=== PATIENT | female | born 1955 | race Caucasian/White ===

== ENCOUNTER → 2020-04-13 10:07 | Outpatient (BNVA) | payer BC, SELFPAY | PROVIDERS: Family Provider Family Medicine; PCP Family Medicine; Visit Provider Internal Medicine Cardiovascular Disease | DX: I50.9 Heart failure, unspecified (principal) | CPT/HCPCS: 80048; 83735; 83880 ==

== ENCOUNTER → 2020-04-21 09:40 | Outpatient (BNVA) | payer BC, SELFPAY | PROVIDERS: Family Provider Family Medicine; PCP Family Medicine; Visit Provider Internal Medicine Cardiovascular Disease | DX: I10 Essential (primary) hypertension (principal) | CPT/HCPCS: 80048; 83735; 83880 ==

== ENCOUNTER 2020-05-05 08:13 | Emergency (ER) | payer MEDICARE, OTHER, SELFPAY ==
--- NOTE | 2020-05-05 08:27 | W.ED.EPISTAX ---
HPI - Epistaxis General: Chief complaint: Epistaxis Stated complaint: NOSEBLEED Time Seen by Provider: 05/05/20 08:26 Source: patient Mode of arrival: ambulatory Limitations: no limitations History of Present Illness: HPI Narrative: Patient presents with nosebleed starting at 3:00 this morning. Patient states that she gets recurrent nosebleeds. Patient reports that her nostril gets real dry and she developed scabs and she will pick them starting it to bleed. Patient appears chronically ill. Patient appears in no pain. Patient has a history of diabetes, atrial fib, congestive heart failure. Patient takes Xarelto and aspirin daily. MD complaint: epistaxis Location: left nostril Review of Systems General: Reports: 10 or more systems reviewed and unremarkable except in HPI and below ENMT: Reports: epistaxis PFSH ED PFSH: Medical History (Updated 05/05/20 @ 10:03 by EDU Leyva) Atrial fibrillation CHF (congestive heart failure) Diabetes HTN (hypertension) Pacemaker Surgical History H/O tricuspid valve annuloplasty S/P cholecystectomy S/P left atrial appendage ligation S/P Maze operation for atrial fibrillation Status post mitral valve annuloplasty Family History Other CAD (coronary artery disease) Diabetes Social History Smoking and tobacco status: never smoked Alcohol intake: never Physical Exam Const: COMMON NORMALS: no acute distress and patient oriented x3 GENERAL APPEARANCE: cooperative HENMT: COMMON NORMALS: normocephalic, TM's normal bilaterally and Normal external nose present HEAD & SCALP: normal to inspection and normocephalic NOSE: Normal external nose present, Abnormal mucous membranes and turbinates present and Epistaxis present on the left TYMPANIC MEMBRANE: TM's normal bilaterally MOUTH: Normal oral and palatal mucosa present THROAT: postnasal drainage (blood tinged) Eye: GENERAL EYE: appearance normal, both eyes and all related structures Neck/C-Spine: COMMON NORMALS: full ROM Lymph: LYMPHATIC: no lymphadenopathy noted Chest: COMMONS NORMALS: normal inspection of the chest Resp: COMMON NORMALS: normal respiratory effort EFFORT & INSPECTION: Yes able to speak in complete sentences Cardio: COMMON NORMALS: regular rate and regular rhythm RATE: regular rate RHYTHM: regular rhythm GI: COMMON NORMALS: non-tender : COMMON NORMALS: Yes no CVA tenderness BLADDER/KIDNEY EXAM: Yes no CVA tenderness Back/Pelvis: COMMON NORMALS: no CVA tenderness and thoracic and lumbar spine normal to inspection Extremity: COMMON NORMALS: normal to inspection Neuro: COMMON NORMALS: patient oriented x3 and moves all extremities Psych: COMMON NORMALS: mental status grossly normal and cooperative Skin: COMMON NORMALS: no rashes or lesions noted GENERAL SKIN EXAM: no rashes or lesions noted Procedures Epistaxis Control Nostril: left Nose Prepped With: lidocaine and oxymetazoline Direct Inspection: anterior source identified (medial kesselbach area) Clots Removed by: blowing nose Cautery Used: none Device Inserted: other (saturated cotton with lidocaine and epinephrine) Patient Tolerated Procedure: well Course ED course: 929, minimal bleeding is noted. Had patient blow nose and then nose was packed with a lidocaine?epinephrine saturated cottonball. Patient tolerated well. wjw 09, removed cottonball noted minimal blood in the nasal passageway. Repacked naris with 1 cottonball saturated with lidocaine and epinephrine. Posterior pharynx was clear of blood and blood clot. wjw Vital Signs: Vital signs: Vital Signs Temperature 97.9 F 05/05/20 08:31 Pulse Rate 129 H 05/05/20 08:31 Respiratory Rate 16 05/05/20 08:31 Blood Pressure 89/69 05/05/20 08:31 Pulse Oximetry 92 05/05/20 08:31 MDM - Epistaxis MDM Narrative: Medical decision making narrative: Patient comes in today for persistent nosebleed to the left nostril starting this morning at 3:00. Patient had no significant bleeding at the time of arrival to the ER. Respirations were even lungs were clear to auscultation. No edema is noted in the extremities. Vital signs noted some low blood pressure at 90/50. Differential diagnosis includes but not limited to anterior/posterior nasal bleed, anemia, sinus infection, adverse effect of medication. Patient was on aspirin and Xarelto. Patient does admit to picking her nose. We packed the nose with lidocaine and epinephrine saturated cotton ball with good results of cessation of nosebleed. We did repeat packing to leave in place for the next 24 hours then patient may remove. Patient then should use Afrin nasal spray 2 sprays each nostril 3 times a day for next 3 days. We will arrange for patient to follow-up with ear nose and throat for further evaluation and treatment with cautery as needed. Case management was consulted for the referral. Lab Data: Labs: Lab Results 05/05/20 05/05/20 05/05/20 Range/Units 08:56 08:56 08:56 WBC 7.8 (4.0-10.0) 10^3/ uL RBC 4.20 (4.1-5.3) 10^6/u L Hgb 10.8 L (11.5-15.3) g/dL Hct 34.7 L (37.0-47.0) % MCV 82.6 (81-99) fL MCH 25.7 L (28.0-34.0) pg MCHC 31.1 (30.0-36.0) g/dL RDW 15.5 H (12.1-15.1) % Plt Count 176 (130-400) 10^3/c mm MPV 12.2 H (7.4-10.4) fL Neut % (Auto) 77.6 % Lymph % (Auto) 9.7 % [place] % (Auto) 8.8 % Eos % (Auto) 2.6 % Baso % (Auto) 0.4 % Neut # (Auto) 6.0 (1.8-7.7) 10^3/u L Lymph # (Auto) 0.8 (0.8-4.8) 10^3/u L [place] # (Auto) 0.7 (0.2-0.9) 10^3/u L Eos # (Auto) 0.2 (0.0-0.8) 10^3/u L Baso # (Auto) 0.0 (0.0-0.1) 10^3/u L Nucleated RBC % (a uto) 0 % Nucleated RBCs # 0.0 /100WBC PT 22.40 H (10.5-13.3) SECO NDS INR 1.89 H (0.8-1.2) APTT 33.8 (23.9-36.7) SECO NDS Sodium 137 (136-145) mmol/L Potassium 3.0 L (3.5-5.1) mmol/L Chloride 90 L (98-107) mmol/L Carbon Dioxide 32 H (22-29) mmol/L Anion Gap 18.0 (5-19) BUN 70 H (8-23) mg/dL Creatinine 1.9 H (0.5-0.9) mg/dL GFR Calculation 26.5 L (90-130) mL/min Glucose 160 H (65-115) mg/dL Calculated Osmolal ity 287 (285-295) mOsm/k g Calcium 10.7 H (8.5-10.5) mg/dL Total Bilirubin 1.1 (0.15-1.2) mg/dL AST 19 (0-32) U/L ALT 14 (0-33) U/L Alkaline Phosphata se 91 (35-105) IU/L Total Protein 8.4 (6.6-8.7) g/dL Albumin 4.2 (3.5-5.2) g/dL Globulin 4.2 (1.3-4.6) g/dL Discharge Plan Discharge Patient Disposition: Home, Self-Care Clinical Impression: Epistaxis Condition: Stable Prescriptions: No Action aspirin [Aspir-81] 81 mg tablet,delayed release (DR/EC) 81 mg PO DAILY RF: 0 escitalopram oxalate 10 mg tablet 20 mg PO DAILY RF: 0 Levemir FlexTouch U-100 Insuln 100 unit/mL (3 mL) insulin pen 106 unit SUBCUT QAM RF: 0 metoprolol tartrate 100 mg tablet 100 mg PO BID RF: 0 Xarelto 20 mg tablet 20 mg PO DAILY RF: 0 simvastatin 10 mg tablet 10 mg PO DAILY Qty: 30 RF: 6 diltiazem HCl 300 mg capsule,extended release 24 hr 300 mg PO DAILY Qty: 30 RF: 5 torsemide 20 mg tablet 60 mg PO BID Qty: 180 RF: 3 potassium chloride 20 mEq tablet extended release 40 meq PO BID Qty: 120 RF: 5 glipizide 10 mg tablet extended release 24hr 20 mg PO DAILY RF: 0 metolazone 5 mg tablet 5 mg PO DAILY RF: 0 trazodone 100 mg Tablet 100 mg PO BEDTIME RF: 0 Refresh Tears See Rx Instructions .ROUTE .COMPLEX RF: 0 Systane (PF) See Rx Instructions .ROUTE .COMPLEX RF: 0 Discharge Orders: Discharge Order (Routine); Ordered 06/04/20 Ordered By: Benito Cristobal Referrals: Heather Núñez MD [Primary Care Provider] - Discharge Diet: Usual diet Discharge Activity: Increase activity as tolerated Patient Instructions: Epistaxis (ED) Activity Restrictions/Additional Instructions: Leave cottonball in nostril until tomorrow morning. If cottonball comes out prior to the morning leave it out. Then use Afrin nasal spray 2 sprays each nostril 3 times a day for the next 3 days. Case management will help you with getting follow-up appointment with ear nose and throat. Hold aspirin tablet for the next 2 to 3 days. Continue other routine medications as directed. Coding Level of Care Code ED Control Room Supervisor for Chg Fwd Exam Comprehensive
[2020-05-05 08:31] VITALS: BP 89/69; PULSE 129; RESP 16; TEMP 36.6; O2SAT 92; BMI 34.7
[2020-05-05] MEDS: oxymetazoline 0.05% Nasal Spray 15 mL 2 SPRAY NOSTRIL-B (08:45)
[2020-05-05 09:11] LABS: Basophils % 0.4 %; Eosinophils # 0.2 10^3/uL (0.0-0.8); Eosinophils % 2.6 %; Hematocrit 34.7 % (37.0-47.0); Hemoglobin 10.8 g/dL (11.5-15.3); Lymphocytes # 0.8 10^3/uL (0.8-4.8); Lymphocytes % 9.7 %; Mean Corpuscular HGB Conc 31.1 g/dL (30.0-36.0); Mean Corpuscular Hemoglobin 25.7 pg (28.0-34.0); Mean Corpuscular Volume 82.6 fL (81-99); Mean Platelet Volume 12.2 fL (7.4-10.4); Monocytes # 0.7 10^3/uL (0.2-0.9); Monocytes % 8.8 %; Neutrophils % 77.6 %; Nucleated Red Blood Cells % 0 %; Platelet Count 176 10^3/cmm (130-400); Red Cell Distribution Width 15.5 % (12.1-15.1); White Blood Count 7.8 10^3/uL (4.0-10.0)
[2020-05-05 09:20] LABS: INR 1.89 (0.8-1.2); Partial Thromboplastin Time 33.8 SECONDS (23.9-36.7)
[2020-05-05 09:31] LABS: Alanine Aminotransferase 14 U/L (0-33); Albumin Level 4.2 g/dL (3.5-5.2); Alkaline Phosphatase 91 IU/L (35-105); Aspartate Amino Transferase 19 U/L (0-32); Blood Urea Nitrogen 70 mg/dL (8-23); Calcium 10.7 mg/dL (8.5-10.5); Carbon Dioxide 32 mmol/L (22-29); Chloride 90 mmol/L (98-107); Globulin 4.2 g/dL (1.3-4.6); Glomerular Filtration Rate 26.5 mL/min (90-130); Glucose 160 mg/dL (65-115); Osmolality Calculated 287 mOsm/kg (285-295); Sodium 137 mmol/L (136-145); Total Bilirubin 1.1 mg/dL (0.15-1.2); Total Protein 8.4 g/dL (6.6-8.7)
[2020-05-05 10:14] VITALS: BP 106/62; PULSE 111; RESP 16; O2SAT 97
--- NOTE | 2020-05-05 10:34 | DCPLANNER ---
call center manager was asked to schedule a follow up appointment for patient with Dr. Leung, ENT. call center manager called the office of Dr. Leung, spoke with Nevaeh, a follow up appointment is scheduled for Saturday, May 09, 2020 at 10:30 with Carmen. call center manager gave patient the appointment information. call center manager will fax patients information to the ENT clinic.
--- NOTE | 2020-05-26 14:39 | DCPLANNER ---
Patient attended appointment scheduled for 05.09.[address] Leung.
== END 2020-05-05 10:15 | disposition home or self-care (01) ==
PROVIDERS: Emergency Provider Nurse Practitioner Family; Family Provider Family Medicine; PCP Family Medicine
DX: R04.0 Epistaxis (principal); Z79.82 Long term (current) use of aspirin; Z79.4 Long term (current) use of insulin; I48.91 Unspecified atrial fibrillation; I11.0 Hypertensive heart disease with heart failure; I50.9 Heart failure, unspecified; E11.9 Type 2 diabetes mellitus without complications; Z95.0 Presence of cardiac pacemaker
CPT/HCPCS: 12345; 30901; 36415; 80053; 85025; 85610; 85730; 86850; 86900; 86902; 99282; 99283; J2001

== ENCOUNTER → 2020-05-06 09:15 | Outpatient (BNVA) | payer MEDICARE, OTHER, SELFPAY | PROVIDERS: Family Provider Family Medicine; PCP Family Medicine; Visit Provider Internal Medicine Cardiovascular Disease | DX: I50.9 Heart failure, unspecified (principal); Z95.0 Presence of cardiac pacemaker | CPT/HCPCS: 83880 ==

== ENCOUNTER 2020-05-21 06:57 | Emergency (ER) | payer MEDICARE, OTHER, SELFPAY ==
[2020-05-21 07:04] VITALS: BP 111/62; PULSE 117; RESP 18; TEMP 36.6; O2SAT 95; BMI 36.0
--- NOTE | 2020-05-21 07:09 | ED_ITS ---
HPI - Epistaxis General: Chief complaint: Epistaxis Stated complaint: NOSE BLEED Time Seen by Provider: 05/21/20 07:00 Source: patient and family Mode of arrival: ambulatory Limitations: no limitations History of Present Illness: HPI Narrative: Patient is a 65-year-old female who presents to ED today with complaints of a nosebleed coming from her left nare that began today. Patient was seen here at our facility on 05/09 for epistaxis. She did follow-up with Dr. Leung who cauterized the nare last week. Patient states she cannot remember if she picked her nose or picked at the scab. Patient does take Xarelto for atrial fibrillation. MD complaint: epistaxis Location: left nostril Onset (ago): hour(s) Duration: constant Context: history of previous and other anticoagulant use Associated symptoms: Reports no associated symptoms; Deny fever(s), sinus pain or vomiting Treatment prior to arrival: stuffed nose with tissue Review of Systems Const: Denies: fever(s), chills, body aches, fatigue or malaise Eyes: Denies: change in vision, blurry vision, photophobia, floaters or seeing flashes ENMT: Reports: epistaxis; Denies: throat pain, uvular edema, enlarged tonsils, odynophagia, mouth pain, swelling of lips/tongue, oral sores, bleeding gums, dental pain, dry mouth, ear or mastoid pain, ear discharge, disequilibrium, nasal congestion or sinus pain GI: Denies: nausea or vomiting Musc: Denies: neck pain Skin/Breast: Denies: rash PFSH ED PFSH: Medical History (Updated 05/21/20 @ 09:04 by BLANCO Demarco) Atrial fibrillation CHF (congestive heart failure) Diabetes HTN (hypertension) Pacemaker Surgical History H/O tricuspid valve annuloplasty S/P cholecystectomy S/P left atrial appendage ligation S/P Maze operation for atrial fibrillation Status post mitral valve annuloplasty Family History Other CAD (coronary artery disease) Diabetes Social History Smoking and tobacco status: never smoked Alcohol intake: never Physical Exam Const: COMMON NORMALS: no acute distress, patient oriented x3, no limitations and alert ORIENTATION/CONSCIOUSNESS: Yes oriented to person, Yes oriented to place and Yes oriented to time HENMT: COMMON NORMALS: normocephalic, atraumatic, hearing grossly normal bilaterally, external ears normal, EAC's normal, TM's normal bilaterally, Normal external nose present, moist oral mucous membranes, oropharynx normal and gingiva normal HEAD & SCALP: normal to inspection, normocephalic and atraumatic FACE & SINUS: normal facial exam and sinuses nontender NOSE: Normal external nose present, No nasal polyps present and Other nasal findings present (pt with bleeding to L Kiesselbach's plexus) EXTERNAL EAR: Yes external ears normal EXTERNAL AUDITORY CANAL: EAC's normal TYMPANIC MEMBRANE: TM's normal bilaterally MOUTH: Normal oral and palatal mucosa present, lip normal and tongue normal THROAT: posterior oropharynx normal, tonsils normal and uvula midline; no uvular edema Neck/C-Spine: COMMON NORMALS: full ROM and no lymphadenopathy Resp: COMMON NORMALS: normal respiratory effort and clear to auscultation bilaterally AUSCULTATION: clear to auscultation bilaterally Cardio: COMMON NORMALS: regular rate (goes anywhere from 90s-110s; known hx of atrial fib; has not taken AM meds) RATE: regular rate (goes anywhere from 90s-110s; known hx of atrial fib; has not taken AM meds) RHYTHM: abnormal rhythm regularly irregular Neuro: ERWIN COMA SCALE: document GCS findings Erwin coma scale eye opening: Spontaneous [place] coma scale verbal response: Orientated Erwin coma scale motor response: Obey commands Erwin coma scale total score: 15 COMMON NORMALS: patient oriented x3 SENSORIUM/ORIENTATION: Yes alert, Yes oriented to person, Yes oriented to place and Yes oriented to time Skin: COMMON NORMALS: no rashes or lesions noted GENERAL SKIN EXAM: no rashes or lesions noted Procedures Epistaxis Control Nostril: left Nose Prepped With: lidocaine and oxymetazoline Direct Inspection: yes Cautery Used: silver nitrate Device Inserted: other (cottonball soaked with lido/epi) Patient Tolerated Procedure: well Course ED course: pt had 2 sprays of Afrin placed to L nare and a cotton ball soaked with lido/epi; re-evaluation 15 mins later reveals bleeding has almost fully resolved; will re-evaluate in another 10 mins small area was cauterized using silver nitrate with good results; bleeding has subsided at this time Vital Signs: Vital signs: Vital Signs Temperature 97.9 F 05/21/20 07:04 Pulse Rate 60 05/21/20 09:37 Respiratory Rate 18 05/21/20 09:37 Blood Pressure 118/70 05/21/20 09:37 Pulse Oximetry 98 05/21/20 09:37 MDM - Epistaxis Lab Data: Labs: Lab Results 05/21/20 05/21/20 Range/Units 07:25 07:25 WBC 8.7 (4.0-10.0) 10^3/ uL RBC 4.26 (4.1-5.3) 10^6/u L Hgb 11.0 L (11.5-15.3) g/dL Hct 34.9 L (37.0-47.0) % MCV 81.9 (81-99) fL MCH 25.8 L (28.0-34.0) pg MCHC 31.5 (30.0-36.0) g/dL RDW 15.5 H (12.1-15.1) % Plt Count 165 (130-400) 10^3/c mm MPV 11.9 H (7.4-10.4) fL Neut % (Auto) 82.4 % Lymph % (Auto) 7.8 % [place] % (Auto) 6.9 % Eos % (Auto) 2.0 % Baso % (Auto) 0.2 % Neut # (Auto) 7.2 (1.8-7.7) 10^3/u L Lymph # (Auto) 0.7 L (0.8-4.8) 10^3/u L [place] # (Auto) 0.6 (0.2-0.9) 10^3/u L Eos # (Auto) 0.2 (0.0-0.8) 10^3/u L Baso # (Auto) 0.0 (0.0-0.1) 10^3/u L Nucleated RBC % (a uto) 0 % Nucleated RBCs # 0.0 /100WBC PT 24.50 H (10.5-13.3) SECO NDS INR 2.12 H (0.8-1.2) APTT 35.1 (23.9-36.7) SECO NDS Discharge Plan Discharge Patient Disposition: Home, Self-Care Clinical Impression: Epistaxis Condition: Stable Prescriptions: No Action aspirin [Aspir-81] 81 mg tablet,delayed release (DR/EC) 81 mg PO DAILY RF: 0 escitalopram oxalate 10 mg tablet 20 mg PO DAILY RF: 0 Levemir FlexTouch U-100 Insuln 100 unit/mL (3 mL) insulin pen 106 unit SUBCUT QAM RF: 0 metoprolol tartrate 100 mg tablet 100 mg PO BID RF: 0 Xarelto 20 mg tablet 20 mg PO DAILY RF: 0 torsemide 20 mg tablet 60 mg PO BID Qty: 180 RF: 3 potassium chloride 20 mEq tablet extended release See Rx Instructions PO .COMPLEX Qty: 150 RF: 2 simvastatin 10 mg tablet 10 mg PO DAILY Qty: 30 RF: 6 diltiazem HCl 300 mg capsule,extended release 24 hr 300 mg PO DAILY Qty: 30 RF: 5 metolazone 5 mg tablet 5 mg PO DAILY Qty: 90 RF: 2 glipizide 10 mg tablet extended release 24hr 20 mg PO DAILY RF: 0 trazodone 100 mg Tablet 100 mg PO BEDTIME RF: 0 Refresh Tears See Rx Instructions .ROUTE .COMPLEX RF: 0 Systane (PF) See Rx Instructions .ROUTE .COMPLEX RF: 0 Discharge Orders: Discharge Order (Routine); Ordered 05/21/20 Ordered By: Gita Dejesus Referrals: Heather Núñez MD [Primary Care Provider] - Activity Restrictions/Additional Instructions: Leave cottonball in there for the next 24 hours. If bleeding begins again you may try the Afrin and nasal clamp for 15-20 minutes. If bleeding continues please return to the emergency department. Case management should contact you on Saturday to get you set up with Dr. Leung. Discharge Date/Time: 05/21/20 09:37 Coding Level of Care Code ED Full Stack Web Developer for Braeden Kuhn Exam Detailed
[2020-05-21 07:16] VITALS: PULSE 110; RESP 18; O2SAT 93
[2020-05-21] MEDS: oxymetazoline 0.05% Nasal Spray 15 mL 2 SPRAY NOSTRIL-L (07:17)
[2020-05-21 07:31] LABS: Basophils % 0.2 %; Eosinophils # 0.2 10^3/uL (0.0-0.8); Hematocrit 34.9 % (37.0-47.0); Lymphocytes # 0.7 10^3/uL (0.8-4.8); Lymphocytes % 7.8 %; Mean Corpuscular HGB Conc 31.5 g/dL (30.0-36.0); Mean Corpuscular Hemoglobin 25.8 pg (28.0-34.0); Mean Corpuscular Volume 81.9 fL (81-99); Mean Platelet Volume 11.9 fL (7.4-10.4); Monocytes # 0.6 10^3/uL (0.2-0.9); Monocytes % 6.9 %; Neutrophils # 7.2 10^3/uL (1.8-7.7); Neutrophils % 82.4 %; Nucleated Red Blood Cells % 0 %; Platelet Count 165 10^3/cmm (130-400); Red Blood Count 4.26 10^6/uL (4.1-5.3); Red Cell Distribution Width 15.5 % (12.1-15.1); White Blood Count 8.7 10^3/uL (4.0-10.0)
[2020-05-21 07:42] LABS: INR 2.12 (0.8-1.2)
[2020-05-21 07:43] LABS: Partial Thromboplastin Time 35.1 SECONDS (23.9-36.7)
[2020-05-21] MEDS: silver nitrate applicator 1 EACH TOPICAL (08:45)
[2020-05-21 09:16] VITALS: BP 186/83; PULSE 46; RESP 18; O2SAT 98
[2020-05-21 09:37] VITALS: BP 118/70; PULSE 60; RESP 18; O2SAT 98
--- NOTE | 2020-05-23 11:11 | DCPLANNER ---
field project manager had message to schedule a follow up appointment for patient with Dr. Leung. field project manager faxed patients records to the office of Dr. Leung, will call for appointment information.
--- NOTE | 2020-05-24 14:25 | DCPLANNER ---
Rowena from Dr. Redding office called and stated that a follow up appointment had been scheduled for patient for Saturday, June 06, 2020 at 9:40. Clinic will call patient with appointment information.
--- NOTE | 2020-06-10 08:51 | DCPLANNER ---
Patient did attend appointment scheduled for 06.06.[address] Leung.
== END 2020-05-21 09:37 | disposition home or self-care (01) ==
PROVIDERS: Family Medicine; Emergency Provider Physician Assistant; PCP Family Medicine
DX: R04.0 Epistaxis (principal); Z79.82 Long term (current) use of aspirin; Z79.4 Long term (current) use of insulin; I48.91 Unspecified atrial fibrillation; I11.0 Hypertensive heart disease with heart failure; I50.9 Heart failure, unspecified; E11.9 Type 2 diabetes mellitus without complications; Z95.0 Presence of cardiac pacemaker
CPT/HCPCS: 12345; 30901; 36415; 85025; 85610; 85730; 99281; 99283; J2001

== ENCOUNTER → 2020-06-07 10:48 | Outpatient (BNVA) | payer MEDICARE, OTHER, SELFPAY | PROVIDERS: PCP Family Medicine; Visit Provider Internal Medicine Cardiovascular Disease | DX: I50.9 Heart failure, unspecified (principal); Z95.0 Presence of cardiac pacemaker; I10 Essential (primary) hypertension; I48.21 Permanent atrial fibrillation | CPT/HCPCS: 80048; 83036; 83735; 83880 ==

== ENCOUNTER → 2020-07-04 10:09 | Outpatient (BNVA) | payer MEDICARE, OTHER, SELFPAY | PROVIDERS: PCP Family Medicine; Visit Provider Internal Medicine Cardiovascular Disease | DX: N18.4 Chronic kidney disease, stage 4 (severe) (principal); I50.9 Heart failure, unspecified | CPT/HCPCS: 80048; 83735; 83880 ==

== ENCOUNTER → 2020-08-17 11:13 | Outpatient (BNVA) | payer MEDICARE, OTHER, SELFPAY | PROVIDERS: PCP Family Medicine; Visit Provider Internal Medicine Cardiovascular Disease | DX: I50.9 Heart failure, unspecified (principal); I11.0 Hypertensive heart disease with heart failure | CPT/HCPCS: 80048; 83735; 83880 ==

== ENCOUNTER 2020-08-25 12:00 | Outpatient (CLI) | payer MEDICARE, OTHER, SELFPAY ==
--- NOTE | 2020-08-25 12:13 | XR_ITS ---
WS: [id number] PA and lateral chest, 08/25/2020 Clinical Data: SOB Comparison: Chest, 07/27/2019. Findings: There is a moderate right pleural effusion. No pneumothorax is present. There is a small op acity at the right cardiophrenic angle which could represent atelectasis and/or minimal pneumonia. Th e heart is slightly enlarged. The patient's had cardiac valve replacement surgery. There is a 2-lead pacemaker in good position. Pulmonary vascularity is not increased. XR/XR chest 2V* [id number] Impression: 1. Moderate right pleural effusion. 2. Cardiac surgery and permanent pacemaker unchanged. 3. Mild cardiomegaly. 4. Possible minimal right middle lobe pneumonia and/or atelectasis recommend re peat chest x-ray one to 2 days.
== END 2020-08-25 12:01 | disposition home or self-care (01) ==
LOC: RAD 12:09
PROVIDERS: PCP Family Medicine; Visit Provider Internal Medicine Cardiovascular Disease
DX: R06.02 Shortness of breath (principal); J90 Pleural effusion, not elsewhere classified; Z95.0 Presence of cardiac pacemaker; I51.7 Cardiomegaly
CPT/HCPCS: 71046; 80048; 83735; 83880

== ENCOUNTER 2020-08-30 14:11 | Outpatient (CLI) | payer MEDICARE, OTHER, SELFPAY ==
--- NOTE | 2020-08-30 14:30 | CT_ITS ---
WS: [id number] CT CHEST WITHOUT INTRAVENOUS CONTRAST HISTORY: TO ASSESS FLUID FOR PLEUROCENTESIS TECHNIQUE: Contiguous 5 mm axial imaging performed on the thorax. Coronal and sagittal reformats are submitted. All CT scans at [facility] use at least one of these dose optimization techniq ues: automated exposure control; mA and/or kV adjustment per patient size (includes targeted exams wh ere dose is matched to clinical indication); or iterative reconstruction. CONTRAST: None DLP: 821.32 mGy.cm COMPARISON: 08/02/2017 Lungs and central airway: Mild haziness over both lungs from mild interstitial edema. No pneumonia or nodules. Pleura: Moderate size layering RIGHT pleural effusion. Heart and pericardium: Markedly enlarged cardiac chambers with a small pericardial effusion. Dual randal d cardiac pacer. Tricuspid and mitral valve replacements. Mediastinum and thomas: Small mediastinal and hilar lymph nodes. Largest lymph nodes in the RIGHT parat afia and precarinal region measure up to 10 mm. Vessels: Mild atherosclerosis aorta. Chest wall and lower neck: Prior LEFT dual lead permanent cardiac pacer. Prior median sternotomy. Upper abdomen: Small amount of ascites adjacent to the liver. Visualized liver is negative. Osseous structures: Prior anterior vertebral compression fracture at T12. CT/CT chest wo con [id number] IMPRESSION: 1. Moderate size layering RIGHT pleural effusion. 2. Mild pulmonary edema. 3. Marked cardiomegaly and a small pericardial effusion. 4. Dual lead LEFT subclavian pacer and mitral/tricuspid valve replacements.
== END 2020-08-30 14:12 | disposition home or self-care (01) ==
LOC: RAD 14:13
PROVIDERS: PCP Family Medicine; Visit Provider Internal Medicine Cardiovascular Disease
DX: J90 Pleural effusion, not elsewhere classified (principal); R06.00 Dyspnea, unspecified; J81.1 Chronic pulmonary edema; I51.7 Cardiomegaly; I31.3 Pericardial effusion (noninflammatory); Z95.0 Presence of cardiac pacemaker; Z95.2 Presence of prosthetic heart valve
CPT/HCPCS: 71250

== ENCOUNTER 2020-09-07 13:01 | Inpatient (IN) | payer MEDICARE, MEDICAID, SELFPAY ==
[2020-09-07] VITALS (8 sets, daily range): BP systolic 83–112; BP diastolic 65–72; PULSE 86–113; RESP 12–30; TEMP 36.4–36.6; O2SAT 94–98; BMI 36.2
--- NOTE | 2020-09-07 13:16 | PC.NURSE ---
EKG done at 1318 and shown to ER doctor
[2020-09-07] MEDS: sodium chloride 0.9% 1,000 ML 999 ML IV (13:21)
[2020-09-07 13:27] LABS: Glucose Point of Care 114 mg/dL (70-110)
--- NOTE | 2020-09-07 13:28 | XR_ITS ---
WS: [id number] XR chest 1V portable [id number] REASON FOR EXAM: dyspnea FINDINGS: Marked cardiomegaly. Pacemaker over the left anterolateral chest with leads to the right atrium and right apex. Previous v alvular replacement, mitral and left atrial appliance. Compared to the previous examination of 08/25/2020, there is increasing interstitial infiltrative kenna nge in the right lower lung field. Right hemidiaphragm is flattened with blunting of the right costop hrenic angle. XR/XR chest 1V portable [id number] IMPRESSION: Compared to the previous examination there continues to be large right pleural effusion. There is increasing interstitial change in the right lateral lower savan[place] ng field. Cannot differentiate between congestive failure and pneumonitis.
--- NOTE | 2020-09-07 13:47 | ED_ITS ---
HPI - General Adult General: Chief complaint: General Medical Stated complaint: DIFF BREATHING, HYPOGLYCEMIA Time Seen by Provider: 09/07/20 13:10 History of Present Illness: HPI narrative: 65-year-old female presents emergency room with complaining of last 2 days of shortness of breath. She was in respiratory distress when EMS arrived with a blood sugar around 47 and she was extremely tachypneic. She was treated in the field and blood sugar on arrival now is 114. She is hypotensive as well. She did take all of her medicines this morning. Chest CT done last week showed mild pulmonary edema with a right pleural effusion. There are no groundglass opacities. Patient has had some loose stools along with the increasing shortness of breath. Onset (ago): week(s) Location: chest Radiation: non-radiation Severity: moderate Relieving factors: none Exacerbating factors: none Associated symptoms: Reports cough, dyspnea and weakness; Deny chest pain, confusion, diaphoresis, decreased appetite, fevers/chills, headache(s), malaise, nausea, rash, palpitations, seizures, short of breath, syncope or vomiting Treatments prior to arrival: none Review of Systems Const: Denies: malaise or diaphoresis ENMT: Denies: throat pain, ear or mastoid pain, nasal discharge or nasal congestion Card: Denies: chest pain, palpitations or syncope Resp: Reports: dyspnea GI: Denies: nausea or vomiting : Denies: flank pain, difficulty voiding, dysuria, urinary frequency or urinary urgency Skin/Breast: Denies: rash Neuro: Denies: headache(s) or confusion [facility] ED PFSH: Medical History Atrial fibrillation CHF (congestive heart failure) Diabetes HTN (hypertension) Pacemaker Surgical History H/O tricuspid valve annuloplasty S/P cholecystectomy S/P left atrial appendage ligation S/P Maze operation for atrial fibrillation Status post mitral valve annuloplasty Family History Other CAD (coronary artery disease) Diabetes Social History Smoking and tobacco status: never smoked Alcohol intake: never Physical Exam Const: COMMON NORMALS: no acute distress GENERAL APPEARANCE: cooperative and comfortable ORIENTATION/CONSCIOUSNESS: Yes awake, Yes oriented to person, Yes oriented to place and Yes oriented to time Neck/C-Spine: COMMON NORMALS: no JVD Lymph: LYMPHATIC: no lymphadenopathy noted and no lymphedema noted Resp: COMMON NORMALS: normal respiratory effort, No retractions, No use of accessory muscles and clear to auscultation bilaterally AUSCULTATION: clear to auscultation bilaterally Cardio: COMMON NORMALS: no JVD, regular rate, regular rhythm and No murmurs present (Cardio) RATE: regular rate RHYTHM: regular rhythm GI: COMMON NORMALS: Soft to palpation and No hepatosplenomegaly present AUSCULTATION: Yes normoactive bowel sounds PALPATION: Yes Soft to palpation, No Tenderness to palpation present (GI), No Guarding due to palpation present (GI) and Yes No hepatosplenomegaly present Extremity: COMMON NORMALS: normal to inspection, capillary refill normal and no calf tenderness; negative for no clubbing, cyanosis or edema and negative for no pedal edema GENERAL: Yes edema (2+ lower extremity edema) Neuro: SENSORIUM/ORIENTATION: Yes oriented to person, Yes oriented to place and Yes oriented to time Skin: COMMON NORMALS: no rashes or lesions noted GENERAL SKIN EXAM: no rashes or lesions noted Course Vital Signs: Vital signs: Vital Signs Temperature 98.0 F 09/12/20 11:16 Pulse Rate 114 H 09/12/20 15:14 Respiratory Rate 26 H 09/12/20 15:14 Blood Pressure 82/50 09/12/20 15:14 Pulse Oximetry 98 09/12/20 15:14 [facility] - General Adult Lab Data: Labs: Lab Results 09/07/20 09/07/20 09/07/20 Range/Units 12:45 12:45 12:45 WBC 16.9 H (4.0-10.0) 10^3/ uL RBC 5.02 (4.1-5.3) 10^6/u L Hgb 12.8 (11.5-15.3) g/dL Hct 40.8 (37.0-47.0) % MCV 81.3 (81-99) fL MCH 25.5 L (28.0-34.0) pg MCHC 31.4 (30.0-36.0) g/dL RDW 16.4 H (12.1-15.1) % Plt Count 172 (130-400) 10^3/c mm MPV 12.3 H (7.4-10.4) fL Neut % (Auto) 74.8 % Lymph % (Auto) 11.7 % [place] % (Auto) 9.2 % Eos % (Auto) 1.2 % Baso % (Auto) 0.5 % Neut # (Auto) 12.63 H (1.8-7.7) 10^3/u L Lymph # (Auto) 2.0 (0.8-4.8) 10^3/u L [place] # (Auto) 1.6 H (0.2-0.9) 10^3/u L Eos # (Auto) 0.2 (0.0-0.8) 10^3/u L Baso # (Auto) 0.1 (0.0-0.1) 10^3/u L Nucleated RBC % (a uto) 0 % Nucleated RBCs # 0.0 /100WBC Fibrinogen 343 (174-498) mg/dL D-Dimer 14.59 H (0-0.59) ug/mIFE U Specimen Type Sample Site ABG pH (7.35-7.45) ABG pCO2 (35-45) mmHg ABG pO2 (80.0-100.0) mmH g ABG HCO3 (22-26) mmol/L ABG Base Excess (-2.0-2.0) mmol/ L Rl Test Hematocrit (37-47) % O2 Delivery Device O2 Liters/Min % FiO2 % Tactical Response Group Officer ID Sodium 132 L (136-145) mmol/L Potassium 5.2 H (3.5-5.1) mmol/L Chloride 97 L (98-107) mmol/L Carbon Dioxide 20 L (22-29) mmol/L Anion Gap 20.2 H (5-19) BUN 73 H (8-23) mg/dL Creatinine 2.8 H (0.5-0.9) mg/dL GFR Calculation 17.0 L (90-130) mL/min Glucose 38 L* (65-115) mg/dL POC Glucose (70-110) mg/dL Calculated Osmolal ity 292 (285-295) mOsm/k g Lactic Acid (0.5-2.2) mmol/L Calcium 9.9 (8.5-10.5) mg/dL Ferritin 88 (15-150) ng/mL Total Bilirubin 0.9 (0.15-1.2) mg/dL AST 15 (0-32) U/L ALT 7 (0-33) U/L Alkaline Phosphata se 88 (35-105) IU/L Lactate Dehydrogen ase 427 H (135-214) U/L Creatine Kinase (26-192) U/L C-Reactive Protein 4.5 (0.0-4.9) mg/L Total Protein 7.8 (6.6-8.7) g/dL Albumin 4.2 (3.5-5.2) g/dL Globulin 3.6 (1.3-4.6) g/dL Procalcitonin 0.21 (0-0.5) ng/mL Urine Color (Yellow) Urine Appearance (CLEAR) Urine pH (5-7) Ur Specific Gravit y (1.005-1.030) Urine Protein (Negative) Urine Glucose (UA) (Normal) Urine Ketones (Negative) Urine Blood (Negative) Urine Nitrate (Negative) Urine Bilirubin (Negative) Urine Urobilinogen (Negative) mg/dL Ur Leukocyte Nia ase (Negative) Urine RBC (0-2) /hpf Urine WBC (0-5) /hpf Ur Squamous Epith Cells (0-5) /hpf Amorphous Sediment Urine Bacteria (NONE) /hpf Influenza Type A A g (Negative) Influenza Type B A g (Negative) SARS-CoV-2 Ag (Rap id) (Negative) 09/07/20 09/07/20 09/07/20 Range/Units 12:45 13:13 13:35 WBC (4.0-10.0) 10^3/ uL RBC (4.1-5.3) 10^6/u L Hgb (11.5-15.3) g/dL Hct (37.0-47.0) % MCV (81-99) fL MCH (28.0-34.0) pg MCHC (30.0-36.0) g/dL RDW (12.1-15.1) % Plt Count (130-400) 10^3/c mm MPV (7.4-10.4) fL Neut % (Auto) % Lymph % (Auto) % [place] % (Auto) % Eos % (Auto) % Baso % (Auto) % Neut # (Auto) (1.8-7.7) 10^3/u L Lymph # (Auto) (0.8-4.8) 10^3/u L [place] # (Auto) (0.2-0.9) 10^3/u L Eos # (Auto) (0.0-0.8) 10^3/u L Baso # (Auto) (0.0-0.1) 10^3/u L Nucleated RBC % (a uto) % Nucleated RBCs # /100WBC Fibrinogen (174-498) mg/dL D-Dimer (0-0.59) ug/mIFE U Specimen Type Sample Site ABG pH (7.35-7.45) ABG pCO2 (35-45) mmHg ABG pO2 (80.0-100.0) mmH g ABG HCO3 (22-26) mmol/L ABG Base Excess (-2.0-2.0) mmol/ L Rl Test Hematocrit (37-47) % O2 Delivery Device O2 Liters/Min % FiO2 % Tactical Response Group Officer ID Sodium (136-145) mmol/L Potassium (3.5-5.1) mmol/L Chloride (98-107) mmol/L Carbon Dioxide (22-29) mmol/L Anion Gap (5-19) BUN (8-23) mg/dL Creatinine (0.5-0.9) mg/dL GFR Calculation (90-130) mL/min Glucose (65-115) mg/dL POC Glucose 114 (70-110) mg/dL Calculated Osmolal ity (285-295) mOsm/k g Lactic Acid (0.5-2.2) mmol/L Calcium (8.5-10.5) mg/dL Ferritin (15-150) ng/mL Total Bilirubin (0.15-1.2) mg/dL AST (0-32) U/L ALT (0-33) U/L Alkaline Phosphata se (35-105) IU/L Lactate Dehydrogen ase (135-214) U/L Creatine Kinase 20 L (26-192) U/L C-Reactive Protein (0.0-4.9) mg/L Total Protein (6.6-8.7) g/dL Albumin (3.5-5.2) g/dL Globulin (1.3-4.6) g/dL Procalcitonin (0-0.5) ng/mL Urine Color (Yellow) Urine Appearance (CLEAR) Urine pH (5-7) Ur Specific Gravit y (1.005-1.030) Urine Protein (Negative) Urine Glucose (UA) (Normal) Urine Ketones (Negative) Urine Blood (Negative) Urine Nitrate (Negative) Urine Bilirubin (Negative) Urine Urobilinogen (Negative) mg/dL Ur Leukocyte Nia ase (Negative) Urine RBC (0-2) /hpf Urine WBC (0-5) /hpf Ur Squamous Epith Cells (0-5) /hpf Amorphous Sediment Urine Bacteria (NONE) /hpf Influenza Type A A g Negative (Negative) Influenza Type B A g Negative (Negative) SARS-CoV-2 Ag (Rap id) (Negative) 09/07/20 09/07/20 09/07/20 Range/Units 13:35 13:45 14:00 WBC (4.0-10.0) 10^3/ uL RBC (4.1-5.3) 10^6/u L Hgb (11.5-15.3) g/dL Hct (37.0-47.0) % MCV (81-99) fL MCH (28.0-34.0) pg MCHC (30.0-36.0) g/dL RDW (12.1-15.1) % Plt Count (130-400) 10^3/c mm MPV (7.4-10.4) fL Neut % (Auto) % Lymph % (Auto) % [place] % (Auto) % Eos % (Auto) % Baso % (Auto) % Neut # (Auto) (1.8-7.7) 10^3/u L Lymph # (Auto) (0.8-4.8) 10^3/u L [place] # (Auto) (0.2-0.9) 10^3/u L Eos # (Auto) (0.0-0.8) 10^3/u L Baso # (Auto) (0.0-0.1) 10^3/u L Nucleated RBC % (a uto) % Nucleated RBCs # /100WBC Fibrinogen (174-498) mg/dL D-Dimer (0-0.59) ug/mIFE U Specimen Type Arterial Sample Site Radial, left ABG pH 7.40 (7.35-7.45) ABG pCO2 33.3 L (35-45) mmHg ABG pO2 173.0 H (80.0-100.0) mmH g ABG HCO3 20.8 L (22-26) mmol/L ABG Base Excess -3.3 L (-2.0-2.0) mmol/ L Rl Test Pos Hematocrit 34.2 L (37-47) % O2 Delivery Device Nc O2 Liters/Min 4.0 % FiO2 36.0 % Tactical Response Group Officer ID Amh Sodium (136-145) mmol/L Potassium (3.5-5.1) mmol/L Chloride (98-107) mmol/L Carbon Dioxide (22-29) mmol/L Anion Gap (5-19) BUN (8-23) mg/dL Creatinine (0.5-0.9) mg/dL GFR Calculation (90-130) mL/min Glucose (65-115) mg/dL POC Glucose (70-110) mg/dL Calculated Osmolal ity (285-295) mOsm/k g Lactic Acid (0.5-2.2) mmol/L Calcium (8.5-10.5) mg/dL Ferritin (15-150) ng/mL Total Bilirubin (0.15-1.2) mg/dL AST (0-32) U/L ALT (0-33) U/L Alkaline Phosphata se (35-105) IU/L Lactate Dehydrogen ase (135-214) U/L Creatine Kinase (26-192) U/L C-Reactive Protein (0.0-4.9) mg/L Total Protein (6.6-8.7) g/dL Albumin (3.5-5.2) g/dL Globulin (1.3-4.6) g/dL Procalcitonin (0-0.5) ng/mL Urine Color Yellow (Yellow) Urine Appearance Clear (CLEAR) Urine pH 5 (5-7) Ur Specific Gravit y 1.010 (1.005-1.030) Urine Protein Neg (Negative) Urine Glucose (UA) Norm (Normal) Urine Ketones Negative (Negative) Urine Blood Neg (Negative) Urine Nitrate Negative (Negative) Urine Bilirubin Neg (Negative) Urine Urobilinogen Neg (Negative) mg/dL Ur Leukocyte Nia ase 1+ H (Negative) Urine RBC None (0-2) /hpf Urine WBC 15-25 H (0-5) /hpf Ur Squamous Epith Cells 0-4 H (0-5) /hpf Amorphous Sediment Not Reportable Urine Bacteria 2+ H (NONE) /hpf Influenza Type A A g (Negative) Influenza Type B A g (Negative) SARS-CoV-2 Ag (Rap id) Negative (Negative) 09/07/20 09/07/20 Range/Units 14:30 15:30 WBC (4.0-10.0) 10^3/ uL RBC (4.1-5.3) 10^6/u L Hgb (11.5-15.3) g/dL Hct (37.0-47.0) % MCV (81-99) fL MCH (28.0-34.0) pg MCHC (30.0-36.0) g/dL RDW (12.1-15.1) % Plt Count (130-400) 10^3/c mm MPV (7.4-10.4) fL Neut % (Auto) % Lymph % (Auto) % [place] % (Auto) % Eos % (Auto) % Baso % (Auto) % Neut # (Auto) (1.8-7.7) 10^3/u L Lymph # (Auto) (0.8-4.8) 10^3/u L [place] # (Auto) (0.2-0.9) 10^3/u L Eos # (Auto) (0.0-0.8) 10^3/u L Baso # (Auto) (0.0-0.1) 10^3/u L Nucleated RBC % (a uto) % Nucleated RBCs # /100WBC Fibrinogen (174-498) mg/dL D-Dimer (0-0.59) ug/mIFE U Specimen Type Sample Site ABG pH (7.35-7.45) ABG pCO2 (35-45) mmHg ABG pO2 (80.0-100.0) mmH g ABG HCO3 (22-26) mmol/L ABG Base Excess (-2.0-2.0) mmol/ L Rl Test Hematocrit (37-47) % O2 Delivery Device O2 Liters/Min % FiO2 % Tactical Response Group Officer ID Sodium (136-145) mmol/L Potassium (3.5-5.1) mmol/L Chloride (98-107) mmol/L Carbon Dioxide (22-29) mmol/L Anion Gap (5-19) BUN (8-23) mg/dL Creatinine (0.5-0.9) mg/dL GFR Calculation (90-130) mL/min Glucose (65-115) mg/dL POC Glucose 69 (70-110) mg/dL Calculated Osmolal ity (285-295) mOsm/k g Lactic Acid 1.3 (0.5-2.2) mmol/L Calcium (8.5-10.5) mg/dL Ferritin (15-150) ng/mL Total Bilirubin (0.15-1.2) mg/dL AST (0-32) U/L ALT (0-33) U/L Alkaline Phosphata se (35-105) IU/L Lactate Dehydrogen ase (135-214) U/L Creatine Kinase (26-192) U/L C-Reactive Protein (0.0-4.9) mg/L Total Protein (6.6-8.7) g/dL Albumin (3.5-5.2) g/dL Globulin (1.3-4.6) g/dL Procalcitonin (0-0.5) ng/mL Urine Color (Yellow) Urine Appearance (CLEAR) Urine pH (5-7) Ur Specific Gravit y (1.005-1.030) Urine Protein (Negative) Urine Glucose (UA) (Normal) Urine Ketones (Negative) Urine Blood (Negative) Urine Nitrate (Negative) Urine Bilirubin (Negative) Urine Urobilinogen (Negative) mg/dL Ur Leukocyte Nia ase (Negative) Urine RBC (0-2) /hpf Urine WBC (0-5) /hpf Ur Squamous Epith Cells (0-5) /hpf Amorphous Sediment Urine Bacteria (NONE) /hpf Influenza Type A A g (Negative) Influenza Type B A g (Negative) SARS-CoV-2 Ag (Rap id) (Negative) Discharge Plan Discharge Patient Disposition: Admitted As Inpatient Admit Provider: Elmer Oropeza Clinical Impression: Pneumonia, CHF (congestive heart failure), SANDY (acute kidney injury), Atrial fibrillation, UTI (urinary tract infection) Condition: Stable Interventions: ED Discharge Assessment Last Done: 09/07/20 17:27 ED Charges Last Done: 09/07/20 17:27 Discharge Date/Time: 09/07/20 17:27 Coding Level of Care Code ED 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
[2020-09-07 14:13] LABS: ABG PCO2 33.3 mmHg (35-45); Arterial Blood Gas Hematocrit 34.2 % (37-47); Base Excess ABG -3.3 mmol/L (-2.0-2.0); Blood Gas Allen Test Pos; Blood Gas Operator Identificat AMH; Blood Gas Sample Site Radial, left; Blood Gas Sample Type Arterial; HCO3 ABG 20.8 mmol/L (22-26); Oxygen Device NC
[2020-09-07 14:22] LABS: Basophils # 0.1 10^3/uL (0.0-0.1); Basophils % 0.5 %; Eosinophils # 0.2 10^3/uL (0.0-0.8); Eosinophils % 1.2 %; Hematocrit 40.8 % (37.0-47.0); Hemoglobin 12.8 g/dL (11.5-15.3); Lymphocytes % 11.7 %; Mean Corpuscular HGB Conc 31.4 g/dL (30.0-36.0); Mean Corpuscular Hemoglobin 25.5 pg (28.0-34.0); Mean Corpuscular Volume 81.3 fL (81-99); Mean Platelet Volume 12.3 fL (7.4-10.4); Monocytes # 1.6 10^3/uL (0.2-0.9); Monocytes % 9.2 %; Neutrophils # 12.63 10^3/uL (1.8-7.7); Neutrophils % 74.8 %; Nucleated Red Blood Cells % 0 %; Platelet Count 172 10^3/cmm (130-400); Red Blood Count 5.02 10^6/uL (4.1-5.3); Red Cell Distribution Width 16.4 % (12.1-15.1); White Blood Count 16.9 10^3/uL (4.0-10.0)
[2020-09-07 14:27] LABS: Influenza A by IFA Negative (Negative); Influenza B by IFA Negative (Negative); SARS Covid-2 Antigen Negative (Negative)
[2020-09-07 14:32] LABS: Procalcitonin 0.21 ng/mL (0-0.5)
[2020-09-07 14:52] LABS: Alanine Aminotransferase 7 U/L (0-33); Albumin Level 4.2 g/dL (3.5-5.2); Alkaline Phosphatase 88 IU/L (35-105); Anion Gap 20.2 (5-19); Aspartate Amino Transferase 15 U/L (0-32); Blood Urea Nitrogen 73 mg/dL (8-23); C Reactive Protein 4.5 mg/L (0.0-4.9); Calcium 9.9 mg/dL (8.5-10.5); Carbon Dioxide 20 mmol/L (22-29); Chloride 97 mmol/L (98-107); Ferritin 88 ng/mL (15-150); Globulin 3.6 g/dL (1.3-4.6); Lactate Dehydrogenase 427 U/L (135-214); Osmolality Calculated 292 mOsm/kg (285-295); Potassium 5.2 mmol/L (3.5-5.1); Sodium 132 mmol/L (136-145); Total Bilirubin 0.9 mg/dL (0.15-1.2); Total Protein 7.8 g/dL (6.6-8.7)
[2020-09-07 15:01] LABS: Add Urine Microscopic? YES; Bilirubin Urine Neg (Negative); Blood Urine Neg (Negative); Glucose Urine UA Norm (Normal); Ketones Urine Negative (Negative); Leukocyte Esterase Urine 1+ (Negative); Nitrate Urine Negative (Negative); Protein Urine Neg (Negative); Urine Appearance Clear (CLEAR); Urine Color Yellow (Yellow); Urobilinogen Urine Neg (Negative); pH Urine 5 (5-7)
[2020-09-07 15:02] LABS: Lactic Sepsis W/Reflex 1.3 mmol/L (0.5-2.2)
[2020-09-07 15:06] LABS: Add Urine Culture? Yes; Bacteria Urine 2+ /hpf; Squamous Epithelial Cell Urine 0-4 /hpf (0-5); WBC Urine 15-25 /hpf (0-5)
[2020-09-07 15:10] LABS: Glucose 38 mg/dL (65-115)
[2020-09-07] MEDS: levofloxacin-dextrose 5 % 750 MG/150 ML PREMIX 100 MG IV (15:30)
--- NOTE | 2020-09-07 15:32 | ECG_ITS ---
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 Measurements Intervals [place] Rate: 93 P: NC: -1 QRS: 134 QRSD: 96 T: 33 QT: 365 QTc: 454 Interpretive Statements ATRIAL FIBRILLATION WITH DEMAND V PACED BEATS INCOMPLETE RIGHT BUNDLE BRANCH BLOCK [90+ ms QRS DURATION, TERMINAL R IN V1/V2, 40+ ms S IN I/aVL/V4/V5/V6] POSSIBLE RIGHT VENTRICULAR HYPERTROPHY [SOME/ALL OF: PROMINENT R IN V1, LATE TRANSITION, RAD, ERICKA, SSS] ANTEROLATERAL MYOCARDIAL INFARCTION [40+ ms Q WAVE IN I/aVL/V3-V6], OF INDETERMINATE AGE Compared to ECG 07/30/2019 14:49:47 Ventricular premature complex(es) now present Aberrant conduction of supraventricular beat(s) now present Atrial abnormality now present Myocardial infarct finding still present Electronically Signed On 09-07-2020 21:40:20 CDT by Kehined Jones M.D. [id number] f
[2020-09-07 15:33] LABS: D Dimer 14.59 ug/mIFEU (0-0.59); Fibrinogen 343 mg/dL (174-498)
--- NOTE | 2020-09-07 15:33 | PC.NURSE ---
Blood glucose is 69
[2020-09-07 15:34] LABS: Glucose Point of Care 69 mg/dL (70-110)
[2020-09-07] MEDS: sodium chloride 0.9% 500 ML 999 ML IV (16:20)
[2020-09-07] MEDS: dextrose 50% syringe 50 mL 25 ML IVP (16:20)
--- NOTE | 2020-09-07 16:57 | P.HP_ITS ---
Providers/Chief Complaint Primary Care Provider: Heather Núñez MD Chief Complaint: DIFF BREATHING, HYPOGLYCEMIA History of Present Illness Lizzie Pro is a 65 year old female with CHF, AFib s/p MAZE procedure, on chronic anticoagulation with Xarelto, MVR, status post PPM, diabetes reports that for the past several weeks she has been gaining about 6 to 7 pounds, with peripheral edema, and progressive shortness of breath, tachypnea. 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 Did not adjust her diuretics, continue taking them. This morning she has been particularly more short of breath, also having some cough, and so decided to come in for evaluation to ER. Also noted having loose stools. In ER she is hypoglycemic, blood glucose initially 38, subsequently up to 69 with some snacks, found to have interstitial change and right lower lung field, large right pleural effusion, with leukocytosis of 16.9. She is afebrile. On 2 L nasal cannula saturating in the high 90s. She denies any chest pain or pressure. D-dimer is elevated at 14.59. Blood pressure is soft 89/66, but has been maintaining. She states that she has taken all her medications today including Xarelto, including her A. fib medications for which she takes Cardizem and metoprolol. Also has been taking diuretics including metolazone, spironolactone, torsemide. She is noted to have acute kidney injury with creatinine of 2.8 superimposed on chronic kidney disease. Mild hyperkalemia 5.2. Noted to have likely urinary tract infection with 15-25 WBC in urine. Rapid influenza, rapid COVID-19 tests were negative. PCR test has been requested. She received a fluid challenge with 2.5 L saline, was started on levofloxacin for pneumonia. Review of Systems Const: Reports: fatigue; Denies: fever(s), chills, body aches or malaise Eyes: Denies: change in vision or eye redness ENMT: Denies: throat pain, oral sores or ear or mastoid pain Card: Reports: edema, dyspnea on exertion and orthopnea; Denies: chest pain or pre-syncope Resp: Reports: dyspnea and non-productive cough; Denies: productive cough, change in phlegm color or hemoptysis GI: Reports: diarrhea; Denies: abdominal pain, nausea, vomiting, constipation, hematochezia or melena : Denies: flank pain, urinary frequency or hematuria Musc: Denies: back pain, joint swelling or joint redness Skin/Breast: Denies: rash, sores or new lesions Neuro: Denies: headache(s), numbness in extremities, weakness in extremities, dizziness, confusion or seizure-like activity Endo: Denies: polyuria or polydipsia Louie/Lymph: Denies: easy bleeding or purpura All/Imm: Denies: urticaria, throat swelling or tongue swelling Medications/Allergies Home Medications Medication Instructions Recorded Confirmed Last Taken Type escitalopram oxalate 10 mg tablet 20 mg PO DAILY 01/20/20 09/07/20 09/07/20 History insulin detemir U-100 100 unit/mL 106 unit SUBCUT QAM 01/20/20 09/07/20 09/07/20 History (3 mL) subcutaneous pen metoprolol tartrate 100 mg tablet 100 mg PO BID 01/20/20 09/07/20 09/07/20 History simvastatin 10 mg tablet 10 mg PO DAILY #30 tab 03/25/20 09/07/20 09/06/20 Rx Refresh Tears See Rx Instructions .ROUTE .COMPLEX 05/05/20 09/07/20 Unknown History Systane (PF) See Rx Instructions .ROUTE .COMPLEX 05/05/20 09/07/20 Unknown History glipizide 20 mg PO DAILY 05/05/20 09/07/20 09/07/20 History trazodone 100 mg PO BEDTIME 05/05/20 09/07/20 09/06/20 History rivaroxaban 20 mg tablet 20 mg PO DAILY #90 tab 07/18/20 09/07/20 09/07/20 Rx potassium chloride 10 mEq 60 meq PO TID cap 08/25/20 09/07/20 09/07/20 History capsule,extended release torsemide 100 mg tablet 100 mg PO DAILY tab 08/25/20 09/07/20 09/07/20 History torsemide 20 mg tablet 20 mg PO QPM tab 08/25/20 09/07/20 09/06/20 History diltiazem HCl 240 mg 240 mg PO DAILY #30 cap 08/28/20 09/07/20 09/07/20 Rx capsule,extended release 24 hr metolazone 5 mg tablet 5 mg PO DAILY tab 08/28/20 09/07/20 09/07/20 History spironolactone 25 mg tablet 25 mg PO DAILY #30 tab 08/28/20 09/07/20 09/07/20 Rx Allergies Allergy/AdvReac Type Severity Reaction Status Date / Time Penicillins Allergy Unknown Verified 05/05/20 08:39 PFSH Acute PFSH: Medical History Atrial fibrillation CHF (congestive heart failure) Diabetes HTN (hypertension) Pacemaker Surgical History H/O tricuspid valve annuloplasty S/P cholecystectomy S/P left atrial appendage ligation S/P Maze operation for atrial fibrillation Status post mitral valve annuloplasty Family History Other CAD (coronary artery disease) Diabetes Social History Smoking and tobacco status: never smoked Alcohol intake: never Vitals/I&O/Wt Last Vital Signs Temp 97.5 F L 09/07/20 13:08 Pulse 95 09/07/20 16:28 Resp 23 H 09/07/20 16:28 BP 89/66 09/07/20 15:30 Pulse Ox 97 09/07/20 16:28 Weight last 48 hrs Weight 95.708 kg Physical Exam Const: COMMON NORMALS: no acute distress and patient oriented x3 HENMT: COMMON NORMALS: oropharynx normal Neck/C-Spine: COMMON NORMALS: no JVD Resp: COMMON NORMALS: normal respiratory effort AUSCULTATION: rales (Few rales noted in right lung, diminished air entry at base) Cardio: COMMON NORMALS: no JVD, regular rhythm, S1 normal heart sound present, S2 normal heart sound present and No murmurs present (Cardio) RHYTHM: regular rhythm HEART SOUNDS: S1 normal heart sound present and S2 normal heart sound present GI: COMMON NORMALS: Normal to inspection, nondistended, normoactive bowel carmencita nds present, Soft to palpation and non-tender PALPATION: Yes Soft to palpation Extremity: COMMON NORMALS: no joint enlargement GENERAL: Yes edema (4+) Neuro: COMMON NORMALS: patient oriented x3 and moves all extremities Skin: COMMON NORMALS: no rashes or lesions noted GENERAL SKIN EXAM: no rashes or lesions noted Data : 09/07/20 12:45 09/07/20 12:45 Micro: Microbiology 09/07/20 15:05 Blood Culture - Preliminary Blood SPECIMEN COLLECTED 09/07/20 15:00 Blood Culture - Preliminary Blood SPECIMEN COLLECTED A&P Assessment and plan (1) Hypoxia: With pneumonia, but also has history of chronic CHF. Does have also right side large pleural effusion. This is likely multifactorial. At this time started on Levaquin for pneumonia COVID-19 rapid is negative, PCR pending. Maintain isolation. Rapid flu. Cough is nonproductive, if starts having some phlegm, collect sputum culture. D-dimer is also very elevated. Is on Xarelto, so discussed with her risk of PE should be a less likely, however, is also hypotensive, and so is going to be assessed by VQ scan. If PE is ruled out, and is able to come off anti- coagulation, consider thoracentesis. For now transition Xarelto to renally dosed Lovenox until renal function more stable. Status: Acute (2) Pneumonia: RLL. Denies symptoms of aspiration. As above. Status: Acute (3) CHF (congestive heart failure): EF 45%. Has been in exacerbation w LE edema, dyspnea. She is currently hypotensive, with acute kidney injury. Continue taking her diuretics despite poor appetite, and also some loose stools. Hypotension. Received fluid challenge in ER. At this time hold off additional infusion of any fluid. Monitor blood pressure. Would use small doses of albumin if needed otherwise avoid IVF due to CHF. Status: Acute (4) SANDY (acute kidney injury): At this time hold any medications that can affect blood pressure. Hold diuretics. She is denies any NSAID use. Check CK. Status: Acute (5) Hypotension: Blood pressure soft, but maintaining mean arterial pressure of 74. Hold off the antihypertensives, the headaches. Hold off additional IV fluids. Small boluses of albumin if needed, but has been maintaining blood pressure per discussion with ER physician and okay to go to the floor. Monitor. Maintain goal mean arterial pressure 65 mmHg or above. Status: Acute (6) UTI (urinary tract infection): Levaquin as above. Follow urine culture. Status: Acute (7) Elevated d-dimer: Continue anticoagulation. As with VQ scan. Follow COVID-19 PCR. Status: Acute (8) Hyperkalemia: Hold potassium supplement. Hold spironolactone. Monitor renal function. Status: Acute (9) Hypoglycemia: Improving. Hold detemir. Continue to monitor. Status: Acute Additional A&P Information History of mitral valve annulus Atrial fibrillation: History of maze procedure. Status post PPM. Normally on Cardizem and metoprolol. Hold currently due to hypotension. Monitor on telemetry. Diabetes: Hold detemir for now. Monitor glucose. Consistent carbohydrate diet. Status post pacemaker History of HTN: Currently hypotensive Other chronic medical problems. Attestations Medical Necessity Statement*: Admission of over 2 midnights is continued for assessment of management of hypoxia, pneumonia, pleural effusion in the setting of CHF, hypotension, acute kidney injury, UTI, elevated d-dimer, with associated multiple medical comorbidities. Coding Level of Care Code Acute Aircraft Mechanic Structures for [facility] Fwd Exam Comprehensive Diagnoses Hypoxia R09.02 Pneumonia J18.9 CHF (congestive heart failure) I50.9 SANDY (acute kidney injury) N17.9 Hypotension I95.9 UTI (urinary tract infection) N39.0 Elevated d-dimer R79.89 Hyperkalemia E87.5 Hypoglycemia E16.2
--- NOTE | 2020-09-07 17:42 | ECG_ITS ---
[facility] Test Date: 2020-09-07 Pat Name: Lizzie Pro Department: Room: 279 Gender: Female Juvenile Officer: : 1955 Requested By: Jr Magaña Order Number: [id number] Kevyn MD: Kehinde Jones M.D. Measurements Intervals [place] Rate: 94 P: [place]: -1 QRS: 127 QRSD: 102 T: -3 QT: 397 QTc: 498 Interpretive Statements ATRIAL FIBRILLATION INCOMPLETE RIGHT BUNDLE BRANCH BLOCK [90+ ms QRS DURATION, TERMINAL R IN V1/V2, 40+ ms S IN I/aVL/V4/V5/V6] ANTEROSEPTAL MYOCARDIAL INFARCTION , OF INDETERMINATE AGE [40+ ms Q WAVE IN V1-V4] Compared to ECG 09/07/2020 13:14:55 Ventricular premature complex(es) no longer present Aberrant conduction of supraventricular beat(s) no longer present Atrial abnormality no longer present Myocardial infarct finding still present Electronically Signed On 09-08-2020 21:41:50 CDT by eKhinde Jones M.D. [id number]
[2020-09-07 17:54] LABS: Glucose Point of Care 120 mg/dL (70-110)
[2020-09-07 17:56] LABS: Creatine Phosphokinase 20 U/L (26-192)
[2020-09-07] MEDS: enoxaparin 100 mg/mL Syringe 95 MG SUBCUT (18:14)
[2020-09-07 21:41] LABS: Glucose Point of Care 93 mg/dL (70-110)
[2020-09-08 03:38] LABS: Glucose Point of Care 54 mg/dL (70-110)
[2020-09-08 04:00] VITALS: BP 105/64; PULSE 117; RESP 18; TEMP 36.3; O2SAT 97
[2020-09-08 06:24] LABS: Blood Urea Nitrogen 68 mg/dL (8-23); Calcium 9.1 mg/dL (8.5-10.5); Carbon Dioxide 24 mmol/L (22-29); Chloride 98 mmol/L (98-107); Glomerular Filtration Rate 17.7 mL/min (90-130); Glucose 107 mg/dL (65-115); Magnesium 2.3 mg/dL (1.7-2.3); Osmolality Calculated 296 mOsm/kg (285-295); Sodium 133 mmol/L (136-145)
[2020-09-08 06:33] LABS: Glucose Point of Care 100 mg/dL (70-110)
[2020-09-08 07:45] VITALS: BP 111/69; PULSE 92; RESP 17; TEMP 36.5; O2SAT 100
[2020-09-08 07:50] LABS: Basophils % 0.3 %; Eosinophils # 0.1 10^3/uL (0.0-0.8); Eosinophils % 1.2 %; Hematocrit 34.6 % (37.0-47.0); Hemoglobin 10.5 g/dL (11.5-15.3); Lymphocytes # 0.7 10^3/uL (0.8-4.8); Lymphocytes % 7.5 %; Mean Corpuscular HGB Conc 30.3 g/dL (30.0-36.0); Mean Corpuscular Hemoglobin 25.1 pg (28.0-34.0); Mean Corpuscular Volume 82.8 fL (81-99); Monocytes # 0.8 10^3/uL (0.2-0.9); Monocytes % 9.2 %; Neutrophils # 6.97 10^3/uL (1.8-7.7); Neutrophils % 80.9 %; Nucleated Red Blood Cells % 0 %; Platelet Count 89 10^3/cmm (130-400); Red Blood Count 4.18 10^6/uL (4.1-5.3); Red Cell Distribution Width 15.9 % (12.1-15.1); White Blood Count 8.6 10^3/uL (4.0-10.0)
[2020-09-08] MEDS: atorvastatin 40 mg Tablet 20 MG PO (09:24)
--- NOTE | 2020-09-08 09:24 | PC.NURSE ---
patient awake alert and oriented, Respiratory therapy in room with patient, placed on RA, oxygen saturation 97%, will continue to monitor, assisted to bedside commode, 200mL, assisted back to bed, discussed plan of care, denies further questions or concerns, reports a non productive cough, cup for sputum culture provided to patient.
[2020-09-08 09:27] VITALS: PULSE 77; O2SAT 98
[2020-09-08 11:08] LABS: Glucose Point of Care 179 mg/dL (70-110)
[2020-09-08 12:00] VITALS: BP 101/68; PULSE 107; RESP 18; TEMP 36.4; O2SAT 92
[2020-09-08 16:00] VITALS: BP 90/63; PULSE 129; RESP 17; TEMP 36.7; O2SAT 93
[2020-09-08 18:02] LABS: Glucose Point of Care 233 mg/dL (70-110)
[2020-09-08] MEDS: enoxaparin 100 mg/mL Syringe 95 MG SUBCUT (18:28)
--- NOTE | 2020-09-08 19:55 | P.CONIM_ITS ---
Providers/Reason For Consult Consulting Physican/Specialty*: Dr. Pavon, cardiology Reason for Consult*: Congestive heart failure and atrial fibrillation Attending Physician: Elmer Oropeza Primary Care Provider: Heather Núñez MD History of Present Illness History of Present Illness Lizzie Pro is a 65 year old female with PMHx of long standing persistent atrial fibrillation s/p MAZE procedure and ANGELO ligation, poorly controlled DM, HTN, diastolic CHF, severe MR s/p MVR and tricuspid valve repair. She underwent mitral valve repair using 26 mm Physio ring and tricuspid valve repair using 26 mm MC3 tricuspid ring on December. She also underwent full left and right-sided Maze and left atrial appendage ligation using 40 mm AtriaCure clip. Post surgery, she underwent dual-chamber permanent pacemaker placement on December. Left ventricular ejection fraction 44%. Follow-up limited echo with ejection fraction 45%. Resolution of small circumferential pericardial effusion. She is well-known to me and I saw her last on 25 August. At that time she was on metolazone 5 mg every day and torsemide 100 mg in the morning and 20 mg in the afternoon. Her dry weight is about 195 pounds. Her weight last office visit was 201 pounds and since then has increased to about 208 pounds on admission. I had added spironolactone to her regimen but she continued to have worsening shortness of breath leg swelling and dyspnea with minimal exertion. Denies any fever or chills or any contact with cocoa with positive patients. Review of Systems Const: Reports: change in weight and fatigue; Denies: fever(s), chills, change in appetite or malaise Eyes: Reports: change in vision; Denies: eye discharge ENMT: Denies: throat pain, swelling of lips/tongue, oral sores, bleeding gums, nasal congestion, epistaxis or post nasal drip Card: Reports: palpitations, edema, dyspnea on exertion and orthopnea; Denies: chest pain, irregular heart rhythm, lightheadedness, syncope or leg pain with exertion Resp: Reports: dyspnea; Denies: productive cough, wheezing or hemoptysis GI: Denies: abdominal pain, nausea, vomiting, hematemesis, heartburn, diarrhea, constipation, change in bowel habits, hematochezia or melena : Denies: difficulty voiding, dysuria, oliguria or hematuria Musc: Denies: back pain, extremity swelling, joint pain or muscle weakness Skin/Breast: Denies: rash, erythema, new lesions or change in hair Neuro: Denies: numbness in extremities, weakness in extremities, lack of coordination, difficulty walking, dizziness, vertigo or confusion Psych: Denies: anxiety, depression or irritability Endo: Denies: tired all the time, cold intolerance or heat intolerance Louie/Lymph: Denies: easy bruising, easy bleeding, petechiae or purpura All/Imm: Denies: throat swelling, tongue swelling or acute wheezing Meds/Allergies Home Medications and Allergies Home Medications Medication Instructions Recorded Confirmed Last Taken Type escitalopram oxalate 10 mg tablet 20 mg PO DAILY 01/20/20 09/07/20 09/07/20 History insulin detemir U-100 100 unit/mL 106 unit SUBCUT QAM 01/20/20 09/07/20 09/07/20 History (3 mL) subcutaneous pen metoprolol tartrate 100 mg tablet 100 mg PO BID 01/20/20 09/07/20 09/07/20 History simvastatin 10 mg tablet 10 mg PO DAILY #30 tab 03/25/20 09/07/20 09/06/20 Rx Refresh Tears See Rx Instructions .ROUTE .COMPLEX 05/05/20 09/07/20 Unknown History Systane (PF) See Rx Instructions .ROUTE .COMPLEX 05/05/20 09/07/20 Unknown History glipizide 20 mg PO DAILY 05/05/20 09/07/20 09/07/20 History trazodone 100 mg PO BEDTIME 05/05/20 09/07/20 09/06/20 History rivaroxaban 20 mg tablet 20 mg PO DAILY #90 tab 07/18/20 09/07/20 09/07/20 Rx potassium chloride 10 mEq 60 meq PO TID cap 08/25/20 09/07/20 09/07/20 History capsule,extended release torsemide 100 mg tablet 100 mg PO DAILY tab 08/25/20 09/07/20 09/07/20 History torsemide 20 mg tablet 20 mg PO QPM tab 08/25/20 09/07/20 09/06/20 History diltiazem HCl 240 mg 240 mg PO DAILY #30 cap 08/28/20 09/07/20 09/07/20 Rx capsule,extended release 24 hr metolazone 5 mg tablet 5 mg PO DAILY tab 08/28/20 09/07/20 09/07/20 History spironolactone 25 mg tablet 25 mg PO DAILY #30 tab 08/28/20 09/07/20 09/07/20 Rx Allergies Allergy/AdvReac Type Severity Reaction Status Date / Time Penicillins Allergy Unknown Verified 05/05/20 08:39 Current Medications Current Medications Generic Name Dose Route Start Last Admin Trade Name Du PRN Reason Stop Dose Admin Atorvastatin Calcium 20 mg 09/08/20 09:00 09/08/20 09:24 Lipitor PO 20 mg DAILY JM Administration Enoxaparin Sodium 95 mg 09/07/20 19:00 09/08/20 18:28 Lovenox SUBCUT 95 mg Q24H JM Administration PFSH Acute PFSH: Medical History Atrial fibrillation CHF (congestive heart failure) Diabetes HTN (hypertension) Pacemaker Surgical History H/O tricuspid valve annuloplasty S/P cholecystectomy S/P left atrial appendage ligation S/P Maze operation for atrial fibrillation Status post mitral valve annuloplasty Family History Other CAD (coronary artery disease) Diabetes Social History Smoking and tobacco status: never smoked Alcohol intake: never Vitals/I&O/Wt Last Vital Signs Temp 98.1 F 09/08/20 16:00 Pulse 129 H 09/08/20 16:00 Resp 17 09/08/20 16:00 BP 90/63 09/08/20 16:00 Pulse Ox 93 09/08/20 16:00 09/08/20 09/08/20 09/08/20 06:59 14:59 22:59 Intake Total 540 / 540 Output Total 150 / 450 250 / 250 Balance -150 / -450 290 / 290 Weight last 48 hrs Weight 219 lb 8 oz Weight 211 lb Physical Exam Narrative: EXAM NARRATIVE: Gen: NAD, obese, sitting on the side of bed, 93% on room air HEENT: PERRL, No pallor or icterus Neck: No thyromegaly, elevated JVD PA: soft, obese, no abdominal wall edema, NT. CVS: S1, S2 of variable intensity, irregular, Grade 3/6 LLSB murmur + INDUSTRIAL SEWER: AAOx 3, No FND Ext: No cyanosis, 3+ edema in bilateral lower extremity extending above the knees Skin: Bilateral leg erythema, no rashes. Data Labs: Other Labs: Laboratory Tests 08/17/20 08/25/20 11:13 11:44 Sodium 137 Potassium 3.4 L Chloride 95 L Carbon Dioxide 30 H BUN 54 H 55 H Creatinine 1.7 H 1.8 H NT-Pro-B Natriuret Pep 1706 H 2228 H Micro: Micro: Microbiology 09/07/20 15:05 Blood Culture - Pr eliminary Blood NEGATIVE TO LARRY E 09/07/20 15:00 Blood Culture - Pr eliminary Blood NEGATIVE TO LARRY E 09/07/20 13:45 Urine Culture - Pr eliminary Urine,Clean Catch Gram Negative R ods Imaging^: Other Imaging: I personally reviewed and interpreted this imaging study as follows: My impression: #KAILYN (11/17/2018): Normal left ventricular size and systolic function. Left ventricular ejection fraction estimated at 55%. Moderately increased right atrial size. Markedly increased left atrial size. Moderately thickened mitral valve with poor leaflet coaptation. Severe mitral regurgitation(ERO -0.44 cm2, regurgitant volume 84 mL, regurgitant fraction 66%). Moderately severe tricuspid valve regurgitation. #Coronary angiogram with no significant disease in left main, LAD, circumflex or RCA. Right dominant system. Mean pulmonary artery pressure 40 mm Hg. # EKG ATRIAL FIBRILLATION WITH DEMAND V PACED BEATS INCOMPLETE RIGHT BUNDLE BRANCH BLOCK [90+ ms QRS DURATION, TERMINAL R IN V1/V2, 40+ ms S IN I/aVL/V4/V5/V6] POSSIBLE RIGHT VENTRICULAR HYPERTROPHY [SOME/ALL OF: PROMINENT R IN V1, LATE TRANSITION, RAD, ERICKA, SSS] ANTEROLATERAL MYOCARDIAL INFARCTION [40+ ms Q WAVE IN I/aVL/V3-V6], OF INDETERMINATE AGE Compared to ECG 07/30/2019 14:49:47 Ventricular premature complex(es) now present Aberrant conduction of supraventricular beat(s) now present Atrial abnormality now present Myocardial infarct finding still present #Chest CT 30 August 2020 IMPRESSION: 1. Moderate size layering RIGHT pleural effusion. 2. Mild pulmonary edema. 3. Marked cardiomegaly and a small pericardial effusion. 4. Dual lead LEFT subclavian pacer and mitral/tricuspid valve replacements. #Chest x-ray 07 September 2020 FINDINGS: Marked cardiomegaly. Pacemaker over the left anterolateral chest with leads to the right atrium and right apex. Previous valvular replacement, mitral and left atrial appliance. Compared to the previous examination of 08/25/2020, there is increasing interstitial infiltrative change in the right lower lung field. Right hemidiaphragm is flattened with blunting of the right costophrenic angle. #Transthoracic echo 05 June 2019 CONCLUSIONS The ventricle is poorly seen in most views, best seen in the apical view. It is probably normal to upper limit of normal in size. There is at least mild global hypokinesis. Ejection fraction is roughly estimated at 45%. Cannot assess diastolic she due to the rhythm. The rhythm is atrial fibrillation which decreases the sensitivity of the examination. Moderately increased right atrial size. Moderately increased left atrial size. Mitral valve not well visualized. Mild-moderate mitral valve regurgitation. The examination is exactly the same as it was in January of this year. A&P Assessment and plan (1) CHF (congestive heart failure): HFmEF ACC/AHA Stage C, NYHA class 4 symptoms -Diuretics have been on hold since yesterday evening -I will start her on Bumex 2 mg IV twice a day; strict input output charting and daily weight. -Follow-up labs tomorrow morning. -We will add potassium tomorrow based on the labs. Status: Acute Qualifiers: Heart failure type: combined systolic and diastolic Heart failure chronicity: acute on chronic Qualified Code(s): I50.43 - Acute on chronic combined systolic (congestive) and diastolic (congestive) heart failure (2) SANDY (acute kidney injury): SANDY on CKD stage IV, likely in setting of renal vascular congestion. -Follow-up on BMP tomorrow morning Status: Acute (3) Atrial fibrillation: She is currently tachycardic. Cardizem and metoprolol have been held because of her blood pressure being low since admission. -Start on metoprolol 5 mg IV PRN. -Heart rate has been running 100-130s. -She has been switched to Lovenox anticipating right-sided thoracentesis Status: Acute Qualifiers: Atrial fibrillation type: permanent Qualified Code(s): I48.21 - Permanent atrial fibrillation (4) Status post mitral valve annuloplasty: Status: Acute (5) H/O tricuspid valve annuloplasty: Status: Acute (6) Pacemaker: Status: Acute (7) Diabetes: Status: Acute Qualifiers: Diabetes mellitus type: type 2 Diabetes mellitus technician terminal and repeater insulin use: without technician terminal and repeater use Diabetes mellitus complication status: with kidney complications Additional A&P Information Moderate sized right pleural effusion-Xarelto has been held, probably would need thoracentesis over the weekend. Possible right lower lobe pneumonia : On antibiotics as per primary team. hyperkalemia resolved Elevated d-dimer Anemia Thank you for allowing me to participate in patient's care. Please feel free to call with questions or concerns. Coding Level of Care Code Acute Oral And Maxillofacial Surgery Resident for Braeden Kuhn History Comprehensive Exam Comprehensive Medical Decision Making High Complexity Diagnoses CHF (congestive heart failure) I50.43 Heart failure type: combined systolic and diastolic Heart failure chronicity: acute on chronic SANDY (acute kidney injury) N17.9 Atrial fibrillation I48.21 Atrial fibrillation type: permanent Status post mitral valve annuloplasty Z98.890 H/O tricuspid valve annuloplasty Z98.890 Pacemaker Z95.0 Diabetes E11.9 Diabetes mellitus type: type 2 Diabetes mellitus technician terminal and repeater insulin use: without detention use Diabetes mellitus complication status: with kidney complications Time Spent (min) 45
[2020-09-08 20:00] VITALS: BP 97/68; PULSE 136; RESP 28; TEMP 36.5; O2SAT 94
[2020-09-08] MEDS: metoprolol tartrate 1 mg/1 mL SDV 5 mL 5 MG IV (20:06)
[2020-09-08] MEDS: bumetanide 0.25 mg/mL SDV 10 mL 2 MG IV (20:06)
--- NOTE | 2020-09-08 20:09 | PC.NURSE ---
Pt change of status. Patient HR 130-160 with A.fib. PRN Metoprolol and ordered dose of Bumex given by RN. Patient is asymptomatic.
[2020-09-08 21:25] LABS: Glucose Point of Care 268 mg/dL (70-110)
--- NOTE | 2020-09-08 21:37 | P.PN_ITS ---
Subjective Subjective: Interval history: She is reporting feeling a little bit better. Denies chest pain. Denies trouble breathing at rest. No dizziness or presyncope. Vitals/I&O/Wt Last Vital Signs Temp 97.7 F 09/08/20 20:00 Pulse 136 H 09/08/20 20:00 Resp 28 H 09/08/20 20:00 BP 97/68 09/08/20 20:00 Pulse Ox 94 09/08/20 20:00 09/08/20 09/08/20 09/08/20 06:59 14:59 22:59 Intake Total 540 / 540 Output Total 150 / 450 250 / 250 100 / 350 Balance -150 / -450 290 / 290 -100 / 190 Weight last 48 hrs Weight 99.564 kg Weight 95.708 kg Physical Exam Const: COMMON NORMALS: no acute distress and patient oriented x3 HENMT: COMMON NORMALS: oropharynx normal Neck/C-Spine: COMMON NORMALS: no JVD Resp: COMMON NORMALS: normal respiratory effort AUSCULTATION: diminished lung sounds on the right in the lower lung lou Cardio: COMMON NORMALS: no JVD, regular rhythm, S1 normal heart sound present, S2 normal heart sound present and No murmurs present (Cardio) RHYTHM: regular rhythm HEART SOUNDS: S1 normal heart sound present and S2 normal heart sound present GI: COMMON NORMALS: Normal to inspection, nondistended, normoactive bowel sounds present, Soft to palpation and non-tender PALPATION: Yes Soft to palpation Extremity: COMMON NORMALS: no joint enlargement GENERAL: Yes edema (4+) Neuro: COMMON NORMALS: patient oriented x3 and moves all extremities Skin: COMMON NORMALS: no rashes or lesions noted GENERAL SKIN EXAM: no rashes or lesions noted Data : 09/08/20 05:30 09/08/20 05:30 Micro: Microbiology 09/07/20 15:05 Blood Culture - Preliminary Blood NEGATIVE TO DATE 09/07/20 15:00 Blood Culture - Preliminary Blood NEGATIVE TO DATE 09/07/20 13:45 Urine Culture - Preliminary Urine,Clean Catch Gram Negative Rods A&P Assessment and plan (1) Hypoxia: Appears to be stable, initially with improvement, currently requiring a little bit more oxygen at 3 L. Subjectively is feeling better. Appreciate cardiology recommendations, resume diuretic. Discussed with her we may run into difficulties with diuresis due to worsening in renal function with acute kidney injury, as well as soft blood pressures. Pending COVID-19 PCR. Continue antibiotic. With pneumonia, but also has history of chronic CHF. Does have also right side large pleural effusion. This is likely multifactorial. Discussed with her once VQ scan is complete and if no PE noted she is agreeable to put on hold anticoagulation and seek thoracentesis. At this time started on Levaquin for pneumonia COVID-19 rapid is negative, PCR pending. Maintain isolation. Rapid flu negative. Cough is nonproductive, if starts having some phlegm, collect sputum culture. D-dimer is also very elevated. Is on Xarelto, so discussed with her risk of PE should be a less likely, however, is also hypotensive, and so is going to be assessed by VQ scan. If PE is ruled out, and is able to come off anti- coagulation, consider thoracentesis. For now transition Xarelto to renally dosed Lovenox until renal function more stable. Status: Acute (2) Pneumonia: RLL. Denies symptoms of aspiration. As above. Status: Acute (3) CHF (congestive heart failure): EF 45%. Has been in exacerbation w LE edema, dyspnea. She is currently hypotensive, with acute kidney injury. Continue taking her diuretics despite poor appetite, and also some loose stools. Hypotension. Received fluid challenge in ER. At this time hold off additional infusion of any fluid. Monitor blood pressure. Would use small doses of albumin if needed otherwise avoid IVF due to CHF. Status: Acute Qualifiers: Heart failure type: combined systolic and diastolic Heart failure chronicity: acute on chronic Qualified Code(s): I50.43 - Acute on chronic combined systolic (congestive) and diastolic (congestive) heart failure (4) SANDY (acute kidney injury): At this time hold any medications that can affect blood pressure. Hold diuretics. She is denies any NSAID use. Normal CK. Status: Acute (5) Hypotension: Slightly better. Blood pressure soft, but maintaining mean arterial pressure of 74. Hold off the antihypertensives, the headaches. Hold off additional IV fluids. Small boluses of albumin if needed, but has been maintaining blood pressure per discussion with ER physician and okay to go to the floor. Monitor. Maintain goal mean arterial pressure 65 mmHg or above. Status: Acute (6) UTI (urinary tract infection): Mookie Mookie rods. Levaquin as above. Follow urine culture. Status: Acute (7) Elevated d-dimer: Continue anticoagulation. As with VQ scan. Follow COVID-19 PCR. Status: Acute (8) Hyperkalemia: Hold potassium supplement. Hold spironolactone. Monitor renal function. Status: Acute (9) Hypoglycemia: Improving. Hold detemir. Continue to monitor. Status: Acute Additional A&P Information History of mitral valve annulus Atrial fibrillation: Appreciate cardiology assessment. Metoprolol added as needed IV. History of maze procedure back in persistent A. fib. Status post PPM. Normally on Cardizem and metoprolol. Hold currently due to soft blood pressures. Monitor on telemetry. Diabetes: Hold detemir for now. Monitor glucose. Consistent carbohydrate diet. Status post pacemaker History of HTN: Currently hypotensive Other chronic medical problems. Attestations Medical Necessity Statement*: Continue admission for assessment management of hypoxia, pneumonia, CHF, pleural effusion, in the setting of acute kidney injury, A. fib and a number of chronic comorbidities. Coding Level of Care Code Acute [facility] for [facility] Fwd Diagnoses Hypoxia R09.02 Pneumonia J18.9 CHF (congestive heart failure) I50.43 Heart failure type: combined systolic and diastolic Heart failure chronicity: acute on chronic SANDY (acute kidney injury) N17.9 Hypotension I95.9 UTI (urinary tract infection) N39.0 Elevated d-dimer R79.89 Hyperkalemia E87.5 Hypoglycemia E16.2
[2020-09-09] VITALS (10 sets, daily range): BP systolic 83–120; BP diastolic 57–80; PULSE 91–145; RESP 16–32; TEMP 36.3–36.7; O2SAT 93–96
[2020-09-09 00:15] LABS: Glucose Point of Care 246 mg/dL (70-110)
[2020-09-09] MEDS: metoprolol tartrate 1 mg/1 mL SDV 5 mL 5 MG IV (00:34)
[2020-09-09 00:46] LABS: Coronavirus Lab Test PTC Negative
[2020-09-09 03:55] LABS: Glucose Point of Care 252 mg/dL (70-110)
[2020-09-09 05:39] LABS: Basophils % 0.4 %; Eosinophils # 0.2 10^3/uL (0.0-0.8); Eosinophils % 2.3 %; Hemoglobin 10.3 g/dL (11.5-15.3); Lymphocytes # 1.1 10^3/uL (0.8-4.8); Lymphocytes % 14.5 %; Mean Corpuscular HGB Conc 30.3 g/dL (30.0-36.0); Mean Corpuscular Hemoglobin 24.7 pg (28.0-34.0); Mean Corpuscular Volume 81.5 fL (81-99); Monocytes # 0.8 10^3/uL (0.2-0.9); Monocytes % 11.2 %; Neutrophils # 5.34 10^3/uL (1.8-7.7); Neutrophils % 70.8 %; Nucleated Red Blood Cells % 0 %; Platelet Count 117 10^3/cmm (130-400); Red Blood Count 4.17 10^6/uL (4.1-5.3); Red Cell Distribution Width 15.9 % (12.1-15.1); White Blood Count 7.5 10^3/uL (4.0-10.0)
[2020-09-09 06:02] LABS: Alanine Aminotransferase < 5 U/L (0-33); Albumin Level 3.5 g/dL (3.5-5.2); Alkaline Phosphatase 77 IU/L (35-105); Aspartate Amino Transferase 12 U/L (0-32); Blood Urea Nitrogen 76 mg/dL (8-23); Calcium 9.5 mg/dL (8.5-10.5); Carbon Dioxide 21 mmol/L (22-29); Chloride 96 mmol/L (98-107); Globulin 3.3 g/dL (1.3-4.6); Glomerular Filtration Rate 15.1 mL/min (90-130); Glucose 195 mg/dL (65-115); Osmolality Calculated 300 mOsm/kg (285-295); Sodium 131 mmol/L (136-145); Total Bilirubin 0.6 mg/dL (0.15-1.2); Total Protein 6.8 g/dL (6.6-8.7)
[2020-09-09 06:04] LABS: Anion Gap 17.6 (5-19); Potassium 3.6 mmol/L (3.5-5.1)
[2020-09-09 07:50] LABS: Magnesium 2.4 mg/dL (1.7-2.3)
[2020-09-09] MEDS: amiodarone 200 mg Tablet 400 MG PO ×2 (07:55→09:26)
--- NOTE | 2020-09-09 08:00 | NM_ITS ---
WS: [id number] Ventilation/perfusion lung scan, 09/09/2020 Clinical Data: Elevated d-dimer/heart failure, atrial fibrillation, coronary artery disease. Comparison: None. Findings: Ventilation lung scan: 32.1 mCi of technetium 99m DTPA were utilized to visualize the lungs. The lung s filled normally. There are no ventilation defects. No subsegmental defects could be seen. NM/NM pul vent and perfus* [id number] Impression: Negative ventilation lung scan. Perfusion lung scan: After the intravenous injection of 5.4 mCi of technetium 9 9m MAA multiple sequential imaging of the lungs were obtained. The distribution of the radionuclide was normal. There were no perfusion filling defects. No armenta bsegmental defects could be seen. Impression: Negative perfusion lung scan. Low probability of pulmonary embolic disease.
--- NOTE | 2020-09-09 08:19 | PM.PN ---
Subjective Subjective: Interval history: She states she feels better this morning. She had a VQ scan this morning. Medications: Reviewed: Yes Medication Review Details: Current Medications Acetaminophen (Tylenol) 650 mg PO Q6H PRN PRN Reason: Mild/Mod Pain Or Temp >/= 101 Amiodarone HCl (Cordarone) 400 mg PO BID [facility] Last Admin: 09/09/20 09:26 Dose: 400 mg Documented by: Atorvastatin Calcium (Lipitor) 20 mg PO DAILY [facility] Last Admin: 09/09/20 09:25 Dose: 20 mg Documented by: Bumetanide (Bumex) 2 mg IV Q12H [facility] Last Admin: 09/08/20 20:06 Dose: 2 mg Documented by: Enoxaparin Sodium (Lovenox) 95 mg SUBCUT Q24H [facility] Last Admin: 09/08/20 18:28 Dose: 95 mg Documented by: Levofloxacin (Levaquin) 750 mg PO Q48H [facility]; Protocol Last Admin: 09/09/20 13:57 Dose: 750 mg Documented by: Metoprolol Tartrate (Metoprolol Tartrate) 5 mg IV Q4H PRN PRN Reason: tachycardia Last Admin: 09/09/20 00:34 Dose: 5 mg Documented by: Ondansetron HCl (Zofran) 4 mg IVP Q6H PRN PRN Reason: NAUSEA AND VOMITING Vitals/I&O/Wt Last Vital Signs Temp 98.1 F 09/09/20 03:50 Pulse 145 H 09/09/20 03:50 Resp 25 H 09/09/20 03:50 BP 113/65 09/09/20 03:50 Pulse Ox 96 09/09/20 03:50 09/08/20 09/09/20 09/09/20 22:59 06:59 14:59 Intake Total 340 / 880 240 / 240 Output Total 360 / 610 200 / 810 100 / 100 Balance -360 / -70 140 / 70 140 / 140 Weight last 48 hrs Weight 221 lb Weight 219 lb 8 oz Weight 211 lb Physical Exam Narrative: EXAM NARRATIVE: Gen: NAD, obese, laying down propped up in the bed, 94% on room air HEENT: PERRL, No pallor or icterus Neck: No thyromegaly, JVD PA: soft, obese, no abdominal wall edema, NT. 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 Data : 09/09/20 05:03 09/09/20 05:03 Micro: Microbiology 09/07/20 15:05 Blood Culture - Preliminary Blood NEGATIVE TO DATE 09/07/20 15:00 Blood Culture - Preliminary Blood NEGATIVE TO DATE 09/07/20 13:45 Urine Culture - Preliminary Urine,Clean Catch Gram Negative Rods A&P Assessment and plan (1) CHF (congestive heart failure): HFmEF (LVEF 45% by echo) ACC/AHA Stage C, NYHA class 3 symptoms -Diuretics have been on hold since yesterday evening -She got Bumex 2 mg IV x 1 yesterday evening with 450 cc UO last night (total out 800 ccnot well documented during day); strict input output charting and daily weight. -I will hold off on diuresis this morning. -Follow-up labs tomorrow morning. -We will add potassium tomorrow based on the labs. -Plan for repeat echo later in course of her hospitalization; once rate has improved Status: Acute Qualifiers: Heart failure chronicity: acute on chronic Heart failure type: combined systolic and diastolic Qualified Code(s): I50.43 - Acute on chronic combined systolic (congestive) and diastolic (congestive) heart failure (2) SANDY (acute kidney injury): SANDY on CKD stage IV, likely in setting of renal vascular congestion and a. fib with RVR -renal function worsened this morning. Cr>3 -It would not be a bad idea to seek opinion of nephrology colleagues. -Follow-up on BMP tomorrow morning Status: Acute (3) Atrial fibrillation: She is currently tachycardic. Cardizem and metoprolol have been held because of her blood pressure being low since admission. -Start on metoprolol 5 mg IV PRN and PO amiodarone -Heart rate has been running 120-140s. 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 No iv fluids today. Moderate sized right pleural effusion-Xarelto has been held, probably would need thoracentesis over the weekend. Possible right lower lobe pneumonia : On antibiotics as per primary team. hyperkalemia resolved Elevated d-dimer : Not sure how much we would get out of VQ scan with her lungs as crappy as they are and if that would change her management. Anemia Thank you for allowing me to participate in patient's care. Please feel free to call with questions or concerns. 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
[2020-09-09] MEDS: atorvastatin 40 mg Tablet 20 MG PO (09:25)
[2020-09-09] MEDS: levoFLOXacin 750 mg Tablet PO (13:57)
[2020-09-09 13:59] LABS: Glucose Point of Care 236 mg/dL (70-110)
[2020-09-09 14:24] LABS: Thyroid Stimulating Hormone 4.18 uIU/mL (0.27-4.20)
--- NOTE | 2020-09-09 15:37 | P.PN_ITS ---
Subjective Subjective: Interval history: She says she is doing all right. She does get short winded easily. Vitals/I&O/Wt Last Vital Signs Temp 97.9 F 09/09/20 11:56 Pulse 112 H 09/09/20 11:56 Resp 16 09/09/20 11:56 BP 120/74 09/09/20 11:56 Pulse Ox 94 09/09/20 11:56 09/09/20 09/09/20 09/09/20 06:59 14:59 22:59 Intake Total 340 / 880 340 / 340 Output Total 200 / 810 450 / 450 Balance 140 / 70 -110 / -110 Weight last 48 hrs Weight 100.244 kg Weight 99.564 kg Physical Exam Const: COMMON NORMALS: no acute distress and patient oriented x3 HENMT: COMMON NORMALS: oropharynx normal Neck/C-Spine: COMMON NORMALS: no JVD Resp: COMMON NORMALS: normal respiratory effort AUSCULTATION: diminished lung sounds on the right in the lower lung lou Cardio: COMMON NORMALS: no JVD, regular rhythm, S1 normal heart sound present, S2 normal heart sound present and No murmurs present (Cardio) RHYTHM: regular rhythm HEART SOUNDS: S1 normal heart sound present and S2 normal heart sound present GI: COMMON NORMALS: Normal to inspection, nondistended, normoactive bowel carmencita nds present, Soft to palpation and non-tender PALPATION: Yes Soft to palpation Extremity: COMMON NORMALS: no joint enlargement GENERAL: Yes edema (4+) Neuro: COMMON NORMALS: patient oriented x3 and moves all extremities Skin: COMMON NORMALS: no rashes or lesions noted GENERAL SKIN EXAM: no rashes or lesions noted Data : 09/09/20 18:32 09/09/20 05:03 Micro: Microbiology 09/07/20 13:45 Urine Culture - Final Urine,Clean Catch Klebsiella oxytoca 09/07/20 15:05 Blood Culture - Preliminary Blood NEGATIVE TO DATE 09/07/20 15:00 Blood Culture - Preliminary Blood NEGATIVE TO DATE A&P Assessment and plan (1) Hypoxia: VQ scan with low probability of PE. We have held her anticoagulation. Thoracentesis was kindly attempted by Dr. Bajwa, but without much fluid available for removal. Lovenox has been changed to prophylactic dose. Unfortunately not very good response to initial trial diuretic, currently with worsened renal function. Will hold off the diuretic for now, reassess renal function in the morning before reattempting. Do appreciate nephrology expertise as well. Discussed with her briefly, in case her condition was getting worse she would be agreeable if needed for temporary hemodialysis, although would of course like to avoid this if possible. Appreciate cardiology recommendations. Negative COVID-19 PCR. Rapid flu negative. Continue antibiotic. With pneumonia, but also has history of chronic CHF. Does have also right side large pleural effusion. This is likely multifactorial. Levaquin for pneumonia. Cough is nonproductive, if starts having some phlegm, collect sputum culture. Status: Acute (2) Pneumonia: RLL. Denies symptoms of aspiration. As above. Status: Acute (3) CHF (congestive heart failure): Reassess renal function in the morning. Reevaluate for additional attempt at diuresis. EF 45%. Has been in exacerbation w LE edema, dyspnea. She is currently hypotensive, with acute kidney injury. Continue taking her diuretics despite poor appetite, and also some loose stools. Hypotension. Received fluid challenge in ER. At this time hold off additional infusion of any fluid. Monitor blood pressure. Would use small doses of albumin if needed otherwise avoid IVF due to CHF. Status: Acute Qualifiers: Heart failure chronicity: acute on chronic Heart failure type: combined systolic and diastolic Qualified Code(s): I50.43 - Acute on chronic combined systolic (congestive) and diastolic (congestive) heart failure (4) SANDY (acute kidney injury): Worsened renal function today. Suspicion for cardiorenal syndrome. Appreciate additional evaluation and recommendations. Status: Acute (5) Hypotension: Slightly better. Soft blood pressures. Resumed cautiously on low-dose metoprolol. Monitor. Maintain goal mean arterial pressure 65 mmHg or above. Status: Acute (6) UTI (urinary tract infection): Klebsiella. Continue Levaquin as above. Status: Acute (7) Elevated d-dimer: Continue anticoagulation. Probability for PE on VQ scan. Negative COVID- 19 PCR. Status: Acute (8) Hyperkalemia: Hold potassium supplement. Hold spironolactone. Monitor renal function. Status: Acute (9) Hypoglycemia: Improving. Hold detemir. Continue to monitor. Status: Acute Additional A&P Information History of mitral valve annulus Atrial fibrillation: Appreciate cardiology assessment. Metoprolol added as needed IV. Started on low-dose with 12.5 mg by mouth. History of maze procedure back in persistent A. fib. Status post PPM. Normally on Cardizem and metoprolol. Hold Cardizem currently due to soft blood pressures. Monitor on telemetry. Diabetes: Hold detemir for now. Monitor glucose. Consistent carbohydrate diet. Status post pacemaker History of HTN: Currently hypotensive Other chronic medical problems. Attestations Medical Necessity Statement*: Continue admission for cyst management of CHF, hypoxia, pneumonia, in the setting of acute kidney injury, UTI with a number of comorbidities. 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
[2020-09-09] MEDS: metoprolol tartrate 25 mg Tablet 12.5 MG PO ×2 (16:10→17:46)
[2020-09-09 17:28] LABS: Glucose Point of Care 240 mg/dL (70-110)
[2020-09-09] MEDS: enoxaparin 30 mg/0.3 mL Syringe SUBCUT (17:45)
--- NOTE | 2020-09-09 18:09 | PC.NURSE ---
Dr. Oropeza notified of BP
--- NOTE | 2020-09-09 18:25 | PM.CONSULT ---
Providers/Reason For Consult Consulting Physican/Specialty*: Nephrology Reason for Consult*: SANDY Attending Physician: Elmer Oropeza Primary Care Provider: Heather Núñez MD History of Present Illness History of Present Illness Thank you for consultation. Ms Pro is a pleasant 65 YoF presenting with increasing SOB, weight gain over the last few weeks. She was found to have a large pleural effusion, Afib with RVR and is being treated with Abx including Levaquin to cover the Klebsiella in her urine. VQ scan negative. Baseline creatinine 1.5 - 2, trending up during hospitalization and she has not responded to diuretics as robustly as hoped, making 1.1L yesterday, with Torsemide and iv Bumex Tachycardia since admission and blood pressures have been soft but maintaing. Currently she still has LE edema and exertional dyspnea but she is breathing comfortably at rest. No Contrast or NSAIDs Of note sodium has been running on the lower side also, 131 today. Meds/Allergies Home Medications and Allergies Home Medications Medication Instructions Recorded Confirmed Last Taken Type escitalopram oxalate 10 mg tablet 20 mg PO DAILY 01/20/20 09/07/20 09/07/20 History insulin detemir U-100 100 unit/mL 106 unit SUBCUT QAM 01/20/20 09/07/20 09/07/20 History (3 mL) subcutaneous pen metoprolol tartrate 100 mg tablet 100 mg PO BID 01/20/20 09/07/20 09/07/20 History simvastatin 10 mg tablet 10 mg PO DAILY #30 tab 03/25/20 09/07/20 09/06/20 Rx Refresh Tears See Rx Instructions .ROUTE .COMPLEX 05/05/20 09/07/20 Unknown History Systane (PF) See Rx Instructions .ROUTE .COMPLEX 05/05/20 09/07/20 Unknown History glipizide 20 mg PO DAILY 05/05/20 09/07/20 09/07/20 History trazodone 100 mg PO BEDTIME 05/05/20 09/07/20 09/06/20 History rivaroxaban 20 mg tablet 20 mg PO DAILY #90 tab 07/18/20 09/07/20 09/07/20 Rx potassium chloride 10 mEq 60 meq PO TID cap 08/25/20 09/07/20 09/07/20 History capsule,extended release torsemide 100 mg tablet 100 mg PO DAILY tab 08/25/20 09/07/20 09/07/20 History torsemide 20 mg tablet 20 mg PO QPM tab 08/25/20 09/07/20 09/06/20 History diltiazem HCl 240 mg 240 mg PO DAILY #30 cap 08/28/20 09/07/20 09/07/20 Rx capsule,extended release 24 hr metolazone 5 mg tablet 5 mg PO DAILY tab 08/28/20 09/07/20 09/07/20 History spironolactone 25 mg tablet 25 mg PO DAILY #30 tab 08/28/20 09/07/20 09/07/20 Rx Allergies Allergy/AdvReac Type Severity Reaction Status Date / Time Penicillins Allergy Unknown Verified 05/05/20 08:39 Current Medications Current Medications Generic Name Dose Route Start Last Admin Trade Name Freq PRN Reason Stop Dose Admin Atorvastatin Calcium 20 mg 09/08/20 09:00 09/09/20 09:25 Lipitor PO 20 mg DAILY JM Administration Bumetanide 2 mg 09/08/20 19:30 09/08/20 20:06 Bumex IV 2 mg Q12H JM Administration Enoxaparin Sodium 30 mg 09/09/20 18:30 09/09/20 17:45 Lovenox SUBCUT 30 mg Q24H JM Administration Metoprolol Tartrate 5 mg 09/08/20 19:36 09/09/20 00:34 Metoprolol Tartrate IV 5 mg Q4H PRN Administration tachycardia Metoprolol Tartrate 12.5 mg 09/09/20 14:40 09/09/20 17:46 Lopressor PO 12.5 mg BID JM Administration PFSH Acute PFSH: Medical History (Updated 09/08/20 @ 20:14 by Hellen Pavon MD) Atrial fibrillation CHF (congestive heart failure) Diabetes HTN (hypertension) Pacemaker Surgical History H/O tricuspid valve annuloplasty S/P cholecystectomy S/P left atrial appendage ligation S/P Maze operation for atrial fibrillation Status post mitral valve annuloplasty Family History Other CAD (coronary artery disease) Diabetes Social History Smoking and tobacco status: never smoked Alcohol intake: never Vitals/I&O/Wt Last Vital Signs Temp 97.9 F 09/09/20 11:56 Pulse 112 H 09/09/20 11:56 Resp 16 09/09/20 11:56 BP 94/72 09/09/20 18:18 Pulse Ox 94 09/09/20 11:56 09/09/20 09/09/20 09/09/20 06:59 14:59 22:59 Intake Total 340 / 880 340 / 340 Output Total 200 / 810 450 / 450 200 / 650 Balance 140 / 70 -110 / -110 -200 / -310 Weight last 48 hrs Weight 100.244 kg Weight 99.564 kg Physical Exam Const: COMMON NORMALS: no acute distress Chest: COMMONS NORMALS: normal inspection of the chest and normal palpation of entire chest wall CHEST: Yes abnormal inspection of the chest and Yes Symmetrical chest wall rise Resp: COMMON NORMALS: normal respiratory effort EFFORT & INSPECTION: Yes able to speak in complete sentences and Yes decreased respiratory effort AUSCULTATION: diminished lung sounds Cardio: RHYTHM: abnormal rhythm GI: COMMON NORMALS: Normal to inspection, nondistended, normoactive bowel sounds present Data Micro: Micro: Microbiology 09/07/20 13:45 Urine Culture - Fi nal Urine,Clean Catch Klebsiella oxyt oca 09/07/20 15:05 Blood Culture - Pr eliminary Blood NEGATIVE TO LARRY E 09/07/20 15:00 Blood Culture - Pr eliminary Blood NEGATIVE TO LARRY E A&P Additional A&P Information 1. SANDY - likely to be hemodynamically mediated ie cardiorenal syndrome type 1. - Will check fractional excretion of urea and sodium and get renal US - diuretics on hold today, but she still has significant volume overload. - passive renal congestion is a possibility in which case aggressive diuresis may still be beneficial, ie if the IVC is severly dilated on echo and other hypervolemic changes (I belive repeat echo is pending) - ultimately she may benefit from dialysis if renal function continues to decline and she fails to respond to diuretic therapy - am labs - avoid the usuals - Strict Is and Os 2. hyponatremia - an ominous sign in CHF patients, stress response to hypothalamus. Monitor for now 3. Afib, RVR, heart failure - as mentioned, repeat Echo, mgmt per Dr Pavon 4. UTI on Levaquin 5. 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
[2020-09-09 18:43] LABS: Hemoglobin 10.9 g/dL (11.5-15.3)
[2020-09-09 21:15] LABS: Glucose Point of Care 212 mg/dL (70-110)
[2020-09-09 23:43] LABS: Glucose Point of Care 183 mg/dL (70-110)
[2020-09-10 00:49] LABS: Creatinine Urine, Random 69 mg/dL (28-217)
[2020-09-10 00:54] LABS: Urine Random Sodium 11 mmol/L
[2020-09-10 01:15] LABS: Add Urine Microscopic? YES; Bilirubin Urine Neg (Negative); Blood Urine Neg (Negative); Glucose Urine UA Norm (Normal); Ketones Urine Negative (Negative); Leukocyte Esterase Urine Trace (Negative); Nitrate Urine Negative (Negative); Protein Urine Neg (Negative); Urea Nitrogen,Urine Random 458 mg/dL; Urine Appearance Clear (CLEAR); Urine Color Yellow (Yellow); Urobilinogen Urine Norm (Negative); pH Urine 5 (5-7)
[2020-09-10 01:23] LABS: Add Urine Culture? No; Amorphous Sediment Urine TRACE /hpf; Bacteria Urine TRACE /hpf; Renal Epithelial Cells Urine 0-4 /hpf
[2020-09-10 03:31] VITALS: BP 113/72; PULSE 122; RESP 24; TEMP 36.5; O2SAT 97
[2020-09-10 03:41] LABS: Glucose Point of Care 192 mg/dL (70-110)
--- NOTE | 2020-09-10 06:00 | XRR_ITS ---
PROCEDURE INFORMATION: Exam: XR Chest, 1 View Exam date and time: 09/10/2020 5:07 AM Age: 65 years old Clinical indication: Other: Hypoxia TECHNIQUE: Imaging protocol: XR of the chest Views: 1 view. COMPARISON: CR XR chest 1V portable [id number] 09/07/2020 1:30 PM FINDINGS: The heart size is normal with median sternotomy sutures, an aortic valve prosthesis and left subclavian pacemaker in place. Infiltrates are seen in the right base with a small pleural effusion from the the left lung is unremarkable. XR/XR chest 1V portable [id number] IMPRESSION: No significant change is seen.
[2020-09-10 06:22] LABS: Basophils % 0.4 %; Eosinophils # 0.2 10^3/uL (0.0-0.8); Eosinophils % 2.2 %; Hematocrit 33.9 % (37.0-47.0); Hemoglobin 10.2 g/dL (11.5-15.3); Lymphocytes # 0.8 10^3/uL (0.8-4.8); Lymphocytes % 11.1 %; Mean Corpuscular HGB Conc 30.1 g/dL (30.0-36.0); Mean Corpuscular Hemoglobin 25.4 pg (28.0-34.0); Mean Corpuscular Volume 84.5 fL (81-99); Monocytes # 0.7 10^3/uL (0.2-0.9); Monocytes % 10.6 %; Neutrophils # 5.08 10^3/uL (1.8-7.7); Neutrophils % 74.5 %; Nucleated Red Blood Cells % 0 %; Platelet Count 103 10^3/cmm (130-400); Red Blood Count 4.01 10^6/uL (4.1-5.3); Red Cell Distribution Width 15.7 % (12.1-15.1); White Blood Count 6.8 10^3/uL (4.0-10.0)
[2020-09-10 06:39] LABS: Alanine Aminotransferase < 5 U/L (0-33); Albumin Level 3.5 g/dL (3.5-5.2); Alkaline Phosphatase 68 IU/L (35-105); Anion Gap 17.2 (5-19); Aspartate Amino Transferase 10 U/L (0-32); Blood Urea Nitrogen 77 mg/dL (8-23); Calcium 9.1 mg/dL (8.5-10.5); Carbon Dioxide 22 mmol/L (22-29); Chloride 95 mmol/L (98-107); Globulin 3.2 g/dL (1.3-4.6); Glomerular Filtration Rate 19.3 mL/min (90-130); Glucose 203 mg/dL (65-115); Osmolality Calculated 301 mOsm/kg (285-295); Potassium 3.2 mmol/L (3.5-5.1); Sodium 131 mmol/L (136-145); Total Bilirubin 0.8 mg/dL (0.15-1.2); Total Protein 6.7 g/dL (6.6-8.7)
[2020-09-10 08:00] VITALS: BP 101/71; PULSE 115; RESP 18; TEMP 36.7; O2SAT 96
[2020-09-10] MEDS: amiodarone 200 mg Tablet 400 MG PO ×3 (08:35→23:04)
[2020-09-10] MEDS: atorvastatin 40 mg Tablet 20 MG PO (08:35)
[2020-09-10] MEDS: lidocaine 1% 5 ML in potassium chloride premix 100 ML 50 ML IV (10:40)
[2020-09-10] MEDS: potassium chloride ER 10 mEq Tablet 20 MEQ PO (10:41)
[2020-09-10 11:12] LABS: Glucose Point of Care 227 mg/dL (70-110)
--- NOTE | 2020-09-10 11:20 | PM.PN ---
Subjective Subjective: Interval history: Feels a little better today. Breathing is comfortable. Edema in legs. No SOB at rest but some on exertion. No uremic Sx. Medications: Reviewed: Yes Medication Review Details: Current Medications Acetaminophen (Tylenol) 650 mg PO Q6H PRN PRN Reason: Mild/Mod Pain Or Temp >/= 101 Amiodarone HCl (Cordarone) 400 mg PO BID [facility] Last Admin: 09/09/20 09:26 Dose: 400 mg Documented by: Atorvastatin Calcium (Lipitor) 20 mg PO DAILY [facility] Last Admin: 09/09/20 09:25 Dose: 20 mg Documented by: Bumetanide (Bumex) 2 mg IV Q12H [facility] Last Admin: 09/08/20 20:06 Dose: 2 mg Documented by: Enoxaparin Sodium (Lovenox) 95 mg SUBCUT Q24H [facility] Last Admin: 09/08/20 18:28 Dose: 95 mg Documented by: Levofloxacin (Levaquin) 750 mg PO Q48H [facility]; Protocol Last Admin: 09/09/20 13:57 Dose: 750 mg Documented by: Metoprolol Tartrate (Metoprolol Tartrate) 5 mg IV Q4H PRN PRN Reason: tachycardia Last Admin: 09/09/20 00:34 Dose: 5 mg Documented by: Ondansetron HCl (Zofran) 4 mg IVP Q6H PRN PRN Reason: NAUSEA AND VOMITING Vitals/I&O/Wt Last Vital Signs Temp 98.0 F 09/10/20 08:00 Pulse 115 H 09/10/20 08:00 Resp 18 09/10/20 08:00 BP 101/71 09/10/20 08:00 Pulse Ox 96 09/10/20 08:00 09/09/20 09/10/20 09/10/20 22:59 06:59 14:59 Output Total 450 / 900 200 / 1100 Balance -450 / -560 -200 / -760 Weight last 48 hrs Weight 100.289 kg Weight 100.244 kg Physical Exam Const: COMMON NORMALS: no acute distress Chest: COMMONS NORMALS: normal inspection of the chest and normal palpation of entire chest wall CHEST: Yes abnormal inspection of the chest and Yes Symmetrical chest wall rise Resp: COMMON NORMALS: normal respiratory effort EFFORT & INSPECTION: Yes able to speak in complete sentences and Yes decreased respiratory effort AUSCULTATION: diminished lung sounds Cardio: RHYTHM: abnormal rhythm GI: COMMON NORMALS: Normal to inspection, nondistended, normoactive bowel sounds present Data : 09/10/20 05:39 09/10/20 05:39 Micro: Microbiology 09/07/20 13:45 Urine Culture - Final Urine,Clean Catch Klebsiella oxytoca A&P Additional A&P Information 1. SANDY - creatinine better; reassuringly - likely to be hemodynamically mediated ie cardiorenal syndrome type 1. - diuretics on hold today, but she still has significant volume overload. - passive renal congestion is a possibility in which case aggressive diuresis may still be beneficial, ie if the IVC is severly dilated on echo and other hypervolemic changes (I believe repeat echo is pending) - ultimately she may benefit from dialysis if renal function continues to decline and she fails to respond to diuretic therapy , however, decrease in creatinine is reassuring - am labs - avoid the usuals - Strict Is and Os 2. hyponatremia and hypoK - an ominous sign in CHF patients, stress response to hypothalamus. Monitor for now - K replacement prescribed 3. Afib, RVR, heart failure - as mentioned, repeat Echo, mgmt per Dr Pavon 4. UTI on Levaquin 5. 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
[2020-09-10 11:54] VITALS: BP 102/70; PULSE 122; RESP 18; TEMP 36.4; O2SAT 98
--- NOTE | 2020-09-10 12:38 | PC.SOCIAL ---
IMM Update Pg.2 of IMM updated and reviewed with patient who verbalized understanding. Copy provided.
--- NOTE | 2020-09-10 14:22 | PM.PN ---
Subjective Subjective: Interval history: Says she is doing about the same. Breathing is all right . No chest pain. No cough. No dizziness/lightheadedness/fainting. Vitals/I&O/Wt Last Vital Signs Temp 97.5 F L 09/10/20 11:54 Pulse 122 H 09/10/20 11:54 Resp 18 09/10/20 11:54 BP 102/70 09/10/20 11:54 Pulse Ox 98 09/10/20 11:54 09/09/20 09/10/20 09/10/20 22:59 06:59 14:59 Output Total 450 / 900 200 / 1100 Balance -450 / -560 -200 / -760 Weight last 48 hrs Weight 100.289 kg Weight 100.244 kg Physical Exam Const: COMMON NORMALS: no acute distress, patient oriented x3 and alert ORIENTATION/CONSCIOUSNESS: Yes awake OTHER: Sitting up in bed. HENMT: COMMON NORMALS: oropharynx normal Neck/C-Spine: COMMON NORMALS: no JVD Chest: OTHER: Healed sternotomy Resp: COMMON NORMALS: normal respiratory effort AUSCULTATION: diminished lung sounds on the right in the lower lung lou Cardio: COMMON NORMALS: no JVD, S1 normal heart sound present, S2 normal heart sound present and No murmurs present (Cardio) RATE: tachycardic RHYTHM: abnormal rhythm irregularly irregular HEART SOUNDS: S1 normal heart sound present and S2 normal heart sound present GI: COMMON NORMALS: Normal to inspection, nondistended, normoactive bowel sounds present, Soft to palpation and non-tender PALPATION: Yes Soft to palpation Extremity: COMMON NORMALS: no joint enlargement GENERAL: Yes edema (4+) Neuro: COMMON NORMALS: patient oriented x3 and moves all extremities SENSORIUM/ORIENTATION: Yes alert Skin: COMMON NORMALS: no rashes or lesions noted GENERAL SKIN EXAM: no rashes or lesions noted Data : 09/10/20 05:39 09/10/20 05:39 A&P Assessment and plan (1) Hypoxia: Discussed w card, nephrology. SANDY may be secondary to congestive changes also secondary to CHF. Discussed with nephrology, will obtain limited echo to assess IVC, and if signs of fluid overload will give diuretic. Per discussion with cardiology please Slater for accurate NATHALIE, and also for now we will give one-time dose therapeutic anticoagulation due to concern for stroke risk with mitral and tricuspid annulus, tomorrow prophylactic dose in anticipation of reevaluation on Saturday by radiology whether there is any change in amount of fluid/sufficient fluid for US or CT guided thoracentesis. VQ scan with low probability of PE. We have held her anticoagulation. Thoracentesis was kindly attempted by Dr. Bajwa, but without much fluid available for removal. Lovenox has been changed to prophylactic dose. Chest x-ray without change this morning. Do appreciate nephrology expertise as well. Discussed with her briefly, in case her condition was getting worse she would be agreeable if needed for temporary hemodialysis, although would of course like to avoid this if possible. Negative COVID-19 PCR. Rapid flu negative. Continue antibiotic for pneumonia. Hypoxia is multifactorial secondary to pneumonia, CHF, possibly some contribution secondary from right pleural effusion. Cough is nonproductive, if starts having some phlegm, collect sputum culture. Status: Acute (2) Pneumonia: RLL. Denies symptoms of aspiration. As above. Status: Acute (3) CHF (congestive heart failure): Renal function with slight improvement. Assess by limited TTE. Reevaluate for additional attempt at diuresis. EF 45%. Has been in exacerbation w LE edema, dyspnea. She is currently hypotensive, with acute kidney injury. Continue taking her diuretics despite poor appetite, and also some loose stools. Hypotension-received small fluid bolus on 09/09. This appears may have been related to stacking of metoprolol doses of 12.5 mg given only an hour apart. Received fluid challenge in ER. At this time hold off additional infusion of any fluid. Monitor blood pressure. Would use small doses of albumin if needed otherwise avoid IVF due to CHF. Status: Acute Qualifiers: Heart failure type: combined systolic and diastolic Heart failure chronicity: acute on chronic Qualified Code(s): I50.43 - Acute on chronic combined systolic (congestive) and diastolic (congestive) heart failure (4) SANDY (acute kidney injury): Worsened renal function today. Suspicion for cardiorenal syndrome. Appreciate additional evaluation and recommendations. Status: Acute (5) Hypotension: Slightly better. Soft blood pressures. Resumed cautiously on low-dose metoprolol. Monitor. Maintain goal mean arterial pressure 65 mmHg or above. Status: Acute (6) UTI (urinary tract infection): Klebsiella. Continue Levaquin as above. Status: Acute (7) Elevated d-dimer: Continue anticoagulation. Probability for PE on VQ scan. Negative COVID-19 PCR. Status: Acute (8) Hyperkalemia: Hold potassium supplement. Hold spironolactone. Monitor renal function. Status: Acute (9) Hypoglycemia: Improving. Hold detemir. Continue to monitor. Status: Acute Additional A&P Information Hypokalemia: Replaced. History of mitral valve annulus Atrial fibrillation: Appreciate cardiology assessment. Metoprolol added as needed IV. P.o. amiodarone added today. Amnio infusion awaited so as not to contribute to fluid overload. Started on low-dose with 12.5 mg by mouth. History of maze procedure back in persistent A. fib. Status post PPM. Normally on Cardizem and metoprolol. Hold Cardizem currently due to soft blood pressures. Monitor on telemetry. Diabetes: Hold detemir for now. Monitor glucose. Consistent carbohydrate diet. Status post pacemaker History of HTN: Currently hypotensive Other chronic medical problems. Attestations Medical Necessity Statement*: Continue admission for assessment and management of multifactorial hypoxia, insetting of acute kidney injury on chronic kidney disease and a number of additional comorbidities. 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
--- NOTE | 2020-09-10 14:33 | USCV_ITS ---
Pro Lizzie Age: 65 Gender: F : 1955 Exam Date: 09/10/2020 15:15 Ordering Phys: Elmer Oropeza MD Technologist: Danelle Gutierrez Exam Location: [facility] [place] Indication: CHF BP: 102 / 70 HR: 154 Rhythm: Sinus Technical Quality: Suboptimal MEASUREMENTS (Male / Female) Normal Values 2D ECHO LV Diastolic Diameter PLAX 3.7 cm 4.2 - 5.9 / 3.9 - 5.3 cm LV Systolic Diameter PLAX 2.9 cm LV Chamber Size 2.7 cm IVS Diastolic Thickness 1.6 cm 0.6 - 1.0 / 0.6 - 0.9 cm IVS Systolic Thickness 1.4 cm LVPW Diastolic Thickness 1.1 cm 0.6 - 1.0 / 0.6 - 0.9 cm LVPW Systolic Thickness 1.1 cm RV Chamber Size 2.6 cm LV Ejection Fraction 2D Teich 44.8 % LA Width 3.9 cm LA Height 5.5 cm RA Width 3.6 cm RA Height 5.1 cm M-MODE LV Diastolic Diameter MM 3.9 cm 4.2 - 5.9 / 3.9 - 5.3 cm LV Systolic Diameter MM 3.1 cm LV Ejection Fraction MM Teich 43.9 % IVS Diastolic Thickness MM 1.1 cm 0.6 - 1.0 / 0.6 - 0.9 cm IVS Systolic Thickness MM 1.4 cm LVPW Diastolic Thickness MM 1.1 cm 0.6 - 1.0 / 0.6 - 0.9 cm LVPW Systolic Thickness MM 1.4 cm RV Diastolic Diameter MM 2.4 cm DOPPLER TR Peak Velocity 392.1 cm/s TR Peak Gradient 61.5 mmHg TR Mean Velocity 311.2 cm/s TR Mean Gradient 40.4 mmHg TR Velocity Time Integral 129.7 cm Right Atrial Pressure 15.0 mmHg Pulmonary Artery Systolic Pressu 76.5 mmHg FINDINGS Left Ventricle Normal left ventricular cavity size. Mildly decreased left ventricular systolic function. Left ventricular ejection fraction is estimated at 40-45%. Mild global hypokinesis. Interpretation is limited by atrial fibrillation with rapid ventricular response. Abnormal (paradoxical) septal motion consistent with postoperative status. Right Ventricle Normal right ventricular systolic function. Decreased right ventricle systolic function. Right ventricular systolic pressure 68 mmHg. Pacemaker wire visualized in the right ventricle. Right Atrium Moderately increased right atrial size. Right atrial pressure estimated at 8 mmHg. Normal-sized inferior vena cava. Left Atrium Severely increased left atrial size. Mitral Valve Status post mitral valve ring annuloplasty. Thickened mitral valve. Aortic Valve Thickened aortic valve. Aortic valve not well visualized. Tricuspid Valve Status post tricuspid valve ring annuloplasty. At least moderate tricuspid valve regurgitation. Pulmonic Valve Pulmonic valve not well visualized. Pericardium Small pericardial effusion located mostly posteriorly along left ventricle (measured at 1.1 cm). Right pleural effusion. Aorta Normal size aortic root and proximal ascending aorta. CONCLUSIONS 1. This is a limited echocardiogram. 2. Normal left ventricular cavity size. Mildly decreased left ventricular systolic function. Left ventricular ejection fraction is estimated at 40-45%. Mild global hypokinesis. Interpretation is limited by atrial fibrillation with rapid ventricular response. 3. At least moderate tricuspid valve regurgitation. 4. Small pericardial effusion located mostly posteriorly along left ventricle (measured at 1.1 cm). Right pleural effusion. 5. Normal-sized inferior vena cava. 6. Severe pulmonary hypertension with pulmonary artery pressure estimated 68 mmHg. 7. When compared to previous echocardiogram dated 06/05/2019, there is small posteriorly located pericardial effusion now. Hellen Pavon MD (Electronically Signed) Final Date: 10 September 2020 17:39 S
[2020-09-10 14:50] VITALS: BP 91/63; PULSE 136; RESP 18; TEMP 35.9; O2SAT 98
--- NOTE | 2020-09-10 15:07 | PM.PN ---
Subjective Subjective: Interval history: Attempted thoracentesis yesterday without much fluid removal. Patient feels about the same, no new complains. Medications: Reviewed: Yes Medication Review Details: Current Medications Acetaminophen (Tylenol) 650 mg PO Q6H PRN PRN Reason: Mild/Mod Pain Or Temp >/= 101 Amiodarone HCl (Cordarone) 400 mg PO Q8H [facility] Atorvastatin Calcium (Lipitor) 20 mg PO DAILY [facility] Last Admin: 09/10/20 08:35 Dose: 20 mg Documented by: Bumetanide (Bumex) 2 mg IV Q12H [facility] Last Admin: 09/08/20 20:06 Dose: 2 mg Documented by: Enoxaparin Sodium (Lovenox) 95 mg SUBCUT ONCE ONE Stop: 09/10/20 18:01 Enoxaparin Sodium (Lovenox) 30 mg SUBCUT ONCE ONE Stop: 09/11/20 18:01 Metoprolol Tartrate (Metoprolol Tartrate) 5 mg IV Q4H PRN PRN Reason: tachycardia Last Admin: 09/09/20 00:34 Dose: 5 mg Documented by: Metoprolol Tartrate (Lopressor) 12.5 mg PO BID [facility] Last Admin: 09/09/20 17:46 Dose: 12.5 mg Documented by: Ondansetron HCl (Zofran) 4 mg IVP Q6H PRN PRN Reason: NAUSEA AND VOMITING Potassium Chloride (Klor-Con 10) 20 meq PO DAILY [facility] Last Admin: 09/10/20 10:41 Dose: 20 meq Documented by: Vitals/I&O/Wt Last Vital Signs Temp 96.7 F L 09/10/20 14:50 Pulse 136 H 09/10/20 14:50 Resp 18 09/10/20 14:50 BP 91/63 09/10/20 14:50 Pulse Ox 98 09/10/20 14:50 09/10/20 09/10/20 09/10/20 06:59 14:59 22:59 Output Total 200 / 1100 Balance -200 / -760 Intake & Output 09/08/20 09/09/20 09/10/20 09/11/20 06:59 06:59 06:59 06:59 Intake Total 880 / 880 340 / 340 Output Total 450 / 450 810 / 810 1100 / 1100 Balance -450 / -450 70 / 70 -760 / -760 Weight 219 lb 8 oz 221 lb 221 lb 1.6 oz Weight last 48 hrs Weight 221 lb 1.6 oz Weight 221 lb Physical Exam Narrative: EXAM NARRATIVE: Gen: NAD, obese, laying down propped up in the bed, 94% on room air HEENT: PERRL, No pallor or icterus Neck: No thyromegaly, JVD PA: soft, obese, no abdominal wall edema, NT. 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 Data : 09/10/20 05:39 09/10/20 05:39 A&P Assessment and plan (1) CHF (congestive heart failure): HFmEF (LVEF 45% by echo) ACC/AHA Stage C, NYHA class 3 symptoms -Diuretics have been on hold since yesterday -strict input output charting and daily weight. -She upper appears volume overloaded clinically with 3+ lower extremity edema extending up to her thighs -Her dry weight is ~195 pounds and she is weighing 221 pounds here in the hospital. -Plan for repeat echo. -Continue to hold diuretics for today. Her blood pressure has been soft and needed 250 cc IV fluids bolus yesterday. -Plan for diuretics potentially tomorrow after placement of Slater catheter. Status: Acute Qualifiers: Heart failure type: combined systolic and diastolic Heart failure chronicity: acute on chronic Qualified Code(s): I50.43 - Acute on chronic combined systolic (congestive) and diastolic (congestive) heart failure (2) SANDY (acute kidney injury): SANDY on CKD stage IV, likely in setting of renal vascular congestion -renal function improved somewhat this morning. Cr 3-->2.5 -Nephrology on board Status: Acute (3) Atrial fibrillation: She is currently tachycardic. Cardizem and metoprolol have been held because of her blood pressure being low since admission. -Start on metoprolol 5 mg IV PRN and PO amiodarone -Heart rate has been running 120-140s. -May try low dose metoprolol succinate 12.5 mg, once permissible with her blood pressure. -Plan for dose of therapeutic Lovenox today. Continue to hold Xarelto Status: Acute Qualifiers: Atrial fibrillation type: permanent Qualified Code(s): I48.21 - Permanent atrial fibrillation (4) Status post mitral valve annuloplasty: Status: Acute (5) H/O tricuspid valve annuloplasty: Status: Acute (6) Pacemaker: Status: Acute (7) Diabetes: Status: Acute Qualifiers: Diabetes mellitus type: type 2 Diabetes mellitus [facility] insulin use: without [facility] use Diabetes mellitus complication status: with kidney complications Additional A&P Information Hypotension: BP has been soft; we might have to give her albumin if need be. No iv fluids today. Moderate sized right pleural effusion-Xarelto has been held, probably would need thoracentesis over the weekend. Possible right lower lobe pneumonia : On antibiotics as per primary team. hyperkalemia resolved Elevated d-dimer : Low probability of PE on VQ scan Anemia Klebsiella UTI Thank you for allowing me to participate in patient's care. Please feel free to call with questions or concerns. Attestations Medical Necessity Statement*: Needs hospital stay for CHF, SANDY and a. 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
[2020-09-10 16:54] LABS: Glucose Point of Care 225 mg/dL (70-110)
[2020-09-10] MEDS: enoxaparin 100 mg/mL Syringe 95 MG SUBCUT (17:28)
[2020-09-10 19:21] VITALS: BP 112/77; PULSE 131; RESP 19; TEMP 36.8; O2SAT 96
[2020-09-10] MEDS: trazodone 100 mg Tablet PO (20:10)
[2020-09-10 23:09] VITALS: BP 106/73; PULSE 124; RESP 22; TEMP 36.6; O2SAT 97
[2020-09-11] VITALS (15 sets, daily range): BP systolic 86–115; BP diastolic 60–79; PULSE 87–123; RESP 18–30; TEMP 36.1–36.6; O2SAT 95–97
[2020-09-11 05:50] LABS: Basophils % 0.4 %; Eosinophils # 0.1 10^3/uL (0.0-0.8); Eosinophils % 2.1 %; Hematocrit 35.6 % (37.0-47.0); Hemoglobin 10.7 g/dL (11.5-15.3); Lymphocytes # 0.7 10^3/uL (0.8-4.8); Lymphocytes % 10.2 %; Mean Corpuscular HGB Conc 30.1 g/dL (30.0-36.0); Mean Corpuscular Hemoglobin 24.5 pg (28.0-34.0); Mean Corpuscular Volume 81.5 fL (81-99); Mean Platelet Volume 13.1 fL (7.4-10.4); Monocytes # 0.7 10^3/uL (0.2-0.9); Monocytes % 10.3 %; Neutrophils # 5.16 10^3/uL (1.8-7.7); Nucleated Red Blood Cells % 0 %; Platelet Count 112 10^3/cmm (130-400); Red Blood Count 4.37 10^6/uL (4.1-5.3); Red Cell Distribution Width 15.7 % (12.1-15.1); White Blood Count 6.8 10^3/uL (4.0-10.0)
[2020-09-11 06:05] LABS: Alanine Aminotransferase < 5 U/L (0-33); Albumin Level 3.6 g/dL (3.5-5.2); Alkaline Phosphatase 67 IU/L (35-105); Anion Gap 15.7 (5-19); Aspartate Amino Transferase 9 U/L (0-32); Blood Urea Nitrogen 67 mg/dL (8-23); Calcium 9.5 mg/dL (8.5-10.5); Carbon Dioxide 23 mmol/L (22-29); Chloride 96 mmol/L (98-107); Glomerular Filtration Rate 17.7 mL/min (90-130); Glucose 224 mg/dL (65-115); Osmolality Calculated 298 mOsm/kg (285-295); Potassium 3.7 mmol/L (3.5-5.1); Sodium 131 mmol/L (136-145); Total Bilirubin 0.8 mg/dL (0.15-1.2); Total Protein 6.6 g/dL (6.6-8.7)
[2020-09-11] MEDS: atorvastatin 40 mg Tablet 20 MG PO (08:38)
[2020-09-11] MEDS: amiodarone 200 mg Tablet 400 MG PO ×3 (08:38→22:34)
[2020-09-11] MEDS: potassium chloride ER 10 mEq Tablet 20 MEQ PO ×2 (08:38→18:13)
--- NOTE | 2020-09-11 12:03 | PC.NURSE ---
I reported the low bp to the charge nurse 89/60
[2020-09-11] MEDS: FUROsemide 10 mg/mL SDV 10mL 80 MG IVP ×2 (13:09→22:34)
--- NOTE | 2020-09-11 15:44 | PC.NURSE ---
I reported the low bp of 86/64 to the nurse
--- NOTE | 2020-09-11 16:31 | PM.PN ---
Subjective Subjective: Interval history: Feels weak, tired. LE edema, dyspnea on exertion. No pain. Poorly motivated No uremic Sx. Resting comfortably Medications: Reviewed: Yes Medication Review Details: Current Medications Acetaminophen (Tylenol) 650 mg PO Q6H PRN PRN Reason: Mild/Mod Pain Or Temp >/= 101 Amiodarone HCl (Cordarone) 400 mg PO Q8H [facility] Atorvastatin Calcium (Lipitor) 20 mg PO DAILY [facility] Last Admin: 09/10/20 08:35 Dose: 20 mg Documented by: Bumetanide (Bumex) 2 mg IV Q12H [facility] Last Admin: 09/08/20 20:06 Dose: 2 mg Documented by: Enoxaparin Sodium (Lovenox) 95 mg SUBCUT ONCE ONE Stop: 09/10/20 18:01 Enoxaparin Sodium (Lovenox) 30 mg SUBCUT ONCE ONE Stop: 09/11/20 18:01 Metoprolol Tartrate (Metoprolol Tartrate) 5 mg IV Q4H PRN PRN Reason: tachycardia Last Admin: 09/09/20 00:34 Dose: 5 mg Documented by: Metoprolol Tartrate (Lopressor) 12.5 mg PO BID [facility] Last Admin: 09/09/20 17:46 Dose: 12.5 mg Documented by: Ondansetron HCl (Zofran) 4 mg IVP Q6H PRN PRN Reason: NAUSEA AND VOMITING Potassium Chloride (Klor-Con 10) 20 meq PO DAILY [facility] Last Admin: 09/10/20 10:41 Dose: 20 meq Documented by: Vitals/I&O/Wt Last Vital Signs Temp 97.7 F 09/11/20 15:44 Pulse 109 H 09/11/20 15:44 Resp 20 H 09/11/20 15:44 BP 86/65 09/11/20 15:44 Pulse Ox 95 09/11/20 15:44 09/11/20 09/11/20 09/11/20 06:59 14:59 22:59 Intake Total 100 / 360 585 / 585 Output Total 450 / 450 Balance -350 / -90 585 / 585 Weight last 48 hrs Weight 102.33 kg Weight 100.289 kg Physical Exam Const: COMMON NORMALS: no acute distress Chest: COMMONS NORMALS: normal inspection of the chest and normal palpation of entire chest wall CHEST: Yes abnormal inspection of the chest and Yes Symmetrical chest wall rise Resp: COMMON NORMALS: normal respiratory effort EFFORT & INSPECTION: Yes able to speak in complete sentences and Yes decreased respiratory effort AUSCULTATION: diminished lung sounds Cardio: RHYTHM: abnormal rhythm GI: COMMON NORMALS: Normal to inspection, nondistended, normoactive bowel sounds present Urinary Catheter Management^: Slater: Cath Placed During This Visit: yes Reason for Continuing Indwelling Catheter: Accurate Measurement of Urinary Output in Critically Ill Patients Urinary Catheter Date of Insertion: 09/10/20 Urinary Catheter Time of Insertion: 15:36 Data : 09/11/20 05:33 09/11/20 05:33 A&P Additional A&P Information 1. SANDY - creatinine a little higher today - likely to be hemodynamically mediated ie cardiorenal syndrome type 1. - passive renal congestion possible given high right sided pressures - Will try high dose Lasix 60mg ivp Q12 - ultimately she may benefit from dialysis if renal function continues to decline and she fails to respond to diuretic therapy - am labs - avoid the usuals - Strict Is and Os 2. hyponatremia and hypoK - an ominous sign in CHF patients, stress response to hypothalamus. Monitor for now - K replaced yesterday 3. Afib, RVR, heart failure - as mentioned, repeat Echo, mgmt per Dr Pavon 4. UTI on Levaquin 5. 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
[2020-09-11 16:40] LABS: Glucose Point of Care 258 mg/dL (70-110)
--- NOTE | 2020-09-11 16:40 | PM.PN ---
Subjective Subjective: Interval history: She feels about the same. Gets short of breath with exertion. Denies chest pain. Reports currently comfortable with nasal cannula on. Vitals/I&O/Wt Last Vital Signs Temp 97.7 F 09/11/20 15:44 Pulse 109 H 09/11/20 15:44 Resp 20 H 09/11/20 15:44 BP 106/77 09/11/20 16:32 Pulse Ox 95 09/11/20 15:44 09/11/20 09/11/20 09/11/20 06:59 14:59 22:59 Intake Total 100 / 360 585 / 585 Output Total 450 / 450 Balance -350 / -90 585 / 585 Weight last 48 hrs Weight 102.33 kg Weight 100.289 kg Physical Exam Const: COMMON NORMALS: no acute distress, patient oriented x3 and alert GENERAL APPEARANCE: frail appearing ORIENTATION/CONSCIOUSNESS: Yes awake OTHER: Sitting up in bed. HENMT: COMMON NORMALS: oropharynx normal Neck/C-Spine: COMMON NORMALS: no JVD Chest: OTHER: Healed sternotomy Resp: COMMON NORMALS: normal respiratory effort AUSCULTATION: diminished lung sounds on the right in the lower lung lou Cardio: COMMON NORMALS: no JVD, S1 normal heart sound present, S2 normal heart sound present and No murmurs present (Cardio) RATE: tachycardic RHYTHM: abnormal rhythm irregularly irregular HEART SOUNDS: S1 normal heart sound present and S2 normal heart sound present GI: COMMON NORMALS: Normal to inspection, nondistended, normoactive bowel sounds present, Soft to palpation and non-tender PALPATION: Yes Soft to palpation Extremity: COMMON NORMALS: no joint enlargement GENERAL: Yes edema (4+) Neuro: COMMON NORMALS: patient oriented x3 and moves all extremities SENSORIUM/ORIENTATION: Yes alert Skin: COMMON NORMALS: no rashes or lesions noted GENERAL SKIN EXAM: no rashes or lesions noted Urinary Catheter Management^: Slater: Cath Placed During This Visit: yes Reason for Continuing Indwelling Catheter: Accurate Measurement of Urinary Output in Critically Ill Patients Urinary Catheter Date of Insertion: 09/10/20 Urinary Catheter Time of Insertion: 15:36 Data : 09/11/20 05:33 09/11/20 05:33 A&P Assessment and plan (1) Hypoxia: Stable. Requiring about 2-1/2 L of oxygen by nasal cannula. Discussed with nephrology, cardiology. This morning diuretic trial. However, blood pressure soft. I did give her a dose of albumin. Subsequently received 80 mg of Lasix. Will request she be moved to [facility] to continue care there. Monitor blood pressures. If blood pressures allow consider repeat Lasix dose tonight, or possibly Lasix drip. Maintain Slater if she is able to tolerate for accurate NATHALIE's. Today one-time prophylactic Lovenox dose in anticipation of reevaluation on Saturday by radiology whether there is any change in amount of fluid/sufficient fluid for US or CT guided thoracentesis. VQ scan with low probability of PE. We have held her anticoagulation. Thoracentesis was kindly attempted by Dr. Bajwa, but without much fluid available for removal. Lovenox has been changed to prophylactic dose. Chest x-ray without change 09/10. Do appreciate nephrology expertise as well. Discussed with her briefly, in case her condition was getting worse she would be agreeable if needed for temporary hemodialysis, although would of course like to avoid this if possible. Negative COVID-19 PCR. Rapid flu negative. Continue antibiotic for pneumonia. Hypoxia is multifactorial secondary to pneumonia, CHF, possibly some contribution secondary from right pleural effusion. Pulmonary hypertension noted on echo. Right ventricular failure. Cough is nonproductive, if starts having some phlegm, collect sputum culture. Status: Acute (2) Pneumonia: RLL. Denies symptoms of aspiration. As above. Status: Acute (3) CHF (congestive heart failure): Acute exacerbation of chronic systolic congestive heart failure. Lasix 80 mg after albumin. Monitor blood pressure. Additional albumin if needed, move to [facility], if bed available consider starting Lasix drip. Otherwise if blood pressure holds consider additional Lasix push. Renal function with slight improvement. Limited TTE with ejection 40-45%, at least moderate TR, small pericardial effusion, severe pulmonary hypertension. EF 45%. Has been in exacerbation w LE edema, dyspnea. She is currently hypotensive, with acute kidney injury. Status: Acute Qualifiers: Heart failure type: combined systolic and diastolic Heart failure chronicity: acute on chronic Qualified Code(s): I50.43 - Acute on chronic combined systolic (congestive) and diastolic (congestive) heart failure (4) SANDY (acute kidney injury): Slight improvement in acute kidney injury. Appears to have RV failure, with suspected renal congestive changes, trial of diuretics. Cardiorenal syndrome. Status: Acute (5) Hypotension: Slightly better. Soft blood pressures. Resumed cautiously on low-dose metoprolol. Monitor. Received 25 g of 25% albumin today with improvement. At this time hold off infusion of any fluid. Monitor blood pressure. Would use albumin boluses if needed, otherwise avoid IVF due to CHF. Maintain goal mean arterial pressure 65 mmHg or above. Status: Acute (6) UTI (urinary tract infection): Klebsiella. Continue Levaquin as above. Status: Acute (7) Elevated d-dimer: Continue anticoagulation. Low probability for PE on VQ scan. Negative COVID-19 PCR. Status: Acute (8) Hyperkalemia: Hold potassium supplement. Hold spironolactone. Monitor renal function. Status: Acute (9) Hypoglycemia: Improving. Hold detemir. Continue to monitor. Status: Acute Additional A&P Information Hypokalemia: Replaced. History of mitral valve annulus Atrial fibrillation: Appreciate cardiology assessment. Metoprolol added as needed IV. P.o. amiodarone. Amnio infusion awaited so as not to contribute to fluid overload. Started on low-dose with 12.5 mg by mouth, but could not tolerate use of blood pressures. History of maze procedure back in persistent A. fib. Status post PPM. Normally on Cardizem and metoprolol. Hold Cardizem currently due to soft blood pressures. Monitor on telemetry. Diabetes: Hold detemir for now. Monitor glucose. Consistent carbohydrate diet. Add sliding scale. Status post pacemaker History of HTN: Currently hypotensive Other chronic medical problems. Attestations Medical Necessity Statement*: Continue admission for assessment of multifactorial hypoxia, acute CHF, pneumonia, in the setting of pulmonary hypertension, also acute kidney injury and low blood pressures. Coding Level of Care Code Acute Postpartum Nurse for [facility] Fw Diagnoses Hypoxia R09.02 Pneumonia J18.9 CHF (congestive heart failure) I50.43 Heart failure type: combined systolic and diastolic Heart failure chronicity: acute on chronic SANDY (acute kidney injury) N17.9 Hypotension I95.9 UTI (urinary tract infection) N39.0 Elevated d-dimer R79.89 Hyperkalemia E87.5 Hypoglycemia E16.2
--- NOTE | 2020-09-11 17:07 | PC.NURSE ---
Report called to [facility] on [facility].
--- NOTE | 2020-09-11 17:47 | P.PN_ITS ---
Subjective Subjective: Interval history: Attempted thoracentesis without much fluid removal. She continues to appears tachypneic and gets short of breath with minimal exertion. Denies having any chest pain. Patient feels about the same, no new complains. About 4 pounds weight gain since yesterday. Medications: Reviewed: Yes Medication Review Details: Current Medications Acetaminophen (Tylenol) 650 mg PO Q6H PRN PRN Reason: Mild/Mod Pain Or Temp >/= 101 Amiodarone HCl (Cordarone) 400 mg PO Q8H [facility] Atorvastatin Calcium (Lipitor) 20 mg PO DAILY [facility] Last Admin: 09/10/20 08:35 Dose: 20 mg Documented by: Bumetanide (Bumex) 2 mg IV Q12H [facility] Last Admin: 09/08/20 20:06 Dose: 2 mg Documented by: Enoxaparin Sodium (Lovenox) 95 mg SUBCUT ONCE ONE Stop: 09/10/20 18:01 Enoxaparin Sodium (Lovenox) 30 mg SUBCUT ONCE ONE Stop: 09/11/20 18:01 Metoprolol Tartrate (Metoprolol Tartrate) 5 mg IV Q4H PRN PRN Reason: tachycardia Last Admin: 09/09/20 00:34 Dose: 5 mg Documented by: Metoprolol Tartrate (Lopressor) 12.5 mg PO BID [facility] Last Admin: 09/09/20 17:46 Dose: 12.5 mg Documented by: Ondansetron HCl (Zofran) 4 mg IVP Q6H PRN PRN Reason: NAUSEA AND VOMITING Potassium Chloride (Klor-Con 10) 20 meq PO DAILY [facility] Last Admin: 09/10/20 10:41 Dose: 20 meq Documented by: Vitals/I&O/Wt Last Vital Signs Temp 97.7 F 09/11/20 15:44 Pulse 109 H 09/11/20 15:44 Resp 20 H 09/11/20 15:44 BP 106/77 09/11/20 16:32 Pulse Ox 95 09/11/20 15:44 09/11/20 09/11/20 09/11/20 06:59 14:59 22:59 Intake Total 100 / 360 945 / 945 Output Total 450 / 450 Balance -350 / -90 945 / 945 Weight last 48 hrs Weight 225 lb 9.6 oz Weight 221 lb 1.6 oz Intake & Output 09/09/20 09/10/20 09/11/20 09/12/20 06:59 06:59 06:59 06:59 Intake Total 880 / 880 340 / 340 360 / 360 945 / 945 Output Total 810 / 810 1100 / 1100 450 / 450 Balance 70 / 70 -760 / -760 -90 / -90 945 / 945 Weight 221 lb 221 lb 1.6 oz 225 lb 9.6 oz Physical Exam Narrative: EXAM NARRATIVE: Gen: NAD, obese, laying down propped up in the bed, 94% on room air HEENT: PERRL, No pallor or icterus Neck: No thyromegaly, JVD PA: soft, obese, no abdominal wall edema, NT. CVS: S1, S2 of variable intensity, irregular, Grade 2/6 LLSB murmur + [place] CONSTABLE: AAOx 3, No FND Ext: No cyanosis, 3+ edema in bilateral lower extremity extending upto the thighs Skin: Bilateral leg erythema, no rashes. Urinary Catheter Management^: Slater: Cath Placed During This Visit: yes Reason for Continuing Indwelling Catheter: Accurate Measurement of Urinary Output in Critically Ill Patients Urinary Catheter Date of Insertion: 09/10/20 Urinary Catheter Time of Insertion: 15:36 Data : 09/11/20 05:33 09/11/20 05:33 Attestation for Other Data: I personally reviewed and interpreted the following: Other data: # TTE CONCLUSIONS 1. This is a limited echocardiogram. 2. Normal left ventricular cavity size. Mildly decreased left ventricular systolic function. Left ventricular ejection fraction is estimated at 40-45%. Mild global hypokinesis. Interpretation is limited by atrial fibrillation with rapid ventricular response. Normal right ventricular size and decreased right ventricular systolic function. 3. At least moderate tricuspid valve regurgitation. 4. Small pericardial effusion located mostly posteriorly along left ventricle (measured at 1.1 cm). Right pleural effusion. 5. Normal-sized inferior vena cava. 6. Severe pulmonary hypertension with pulmonary artery pressure estimated 68 mmHg. 7. When compared to previous echocardiogram dated 06/05/2019, there is small posteriorly located pericardial effusion now. A&P Assessment and plan (1) CHF (congestive heart failure): Mildly decreased left ventricular systolic function and right ventricular failure. -strict input output charting and daily weight. -She appears volume overloaded clinically with 3+ lower extremity edema extending up to her thighs -Her dry weight is ~195 pounds and she is weighing 225 pounds here in the hospital today. -I had ordered for Bumex 2 mg IV in the morning which was not administered by nursing staff (due to unclear reasons; I was not informed of the same). -Lasix drip was attempted by Dr. Melgar and then held because of low blood pres sure followed by administration of 80 Lasix 80 mg IV x1 at 1 PM along with albumin 25 g. -Has been started on Lasix 80 mg IV every 12 hours; I agree with the plan. -She has a indwelling Slater catheter now. -I will plan to transfer her down to [facility] for closer monitoring as I do not think she is getting the care she needs on [facility] floor. Status: Acute Qualifiers: Heart failure type: combined systolic and diastolic Heart failure chronicity: acute on chronic Qualified Code(s): I50.43 - Acute on chronic c ombined systolic (congestive) and diastolic (congestive) heart failure (2) SANYD (acute kidney injury): SANDY on CKD stage IV, likely in setting of renal vascular congestion -renal function improved somewhat this morning. Cr 3-->2.5-->2.7; BUN 77-->67. -May need dialysis if she does not respond to Lasix. -Nephrology on board Status: Acute (3) Atrial fibrillation: She is currently tachycardic. Cardizem and metoprolol have been held because of her blood pressure being low since admission. -Start on metoprolol 5 mg IV PRN and 400 TID amiodarone -Heart rate has been running 110-130s. -May try low dose metoprolol succinate 12.5 mg, once permissible with her blood pressure. -Continue to hold Xarelto. Status: Acute Qualifiers: Atrial fibrillation type: permanent Qualified Code(s): I48.21 - Permanent atrial fibrillation (4) Status post mitral valve annuloplasty: Status: Acute (5) H/O tricuspid valve annuloplasty: Status: Acute (6) Pacemaker: Status: Acute (7) Diabetes: Status: Acute Qualifiers: Diabetes mellitus type: type 2 Diabetes mellitus alf insulin use: without ocean transportation intermediary use Diabetes mellitus complication status: with kidney complications Additional A&P Information Hypotension: BP has been soft; we might have to give her albumin if need be. No iv fluids today. Moderate sized right pleural effusion-Xarelto has been held. Possible right lower lobe pneumonia : On antibiotics as per primary team. Elevated d-dimer : Low probability of PE on VQ scan Anemia Klebsiella UTI Thank you for allowing me to participate in patient's care. Please feel free to call with questions or concerns. Attestations Medical Necessity Statement*: Needs hospital stay for decompensated congestive heart failure and worsening renal function. Coding Level of Care Code Acute Home Appliance Technician for [facility] Fwd Diagnoses CHF (congestive heart failure) I50.43 Heart failure type: combined systolic and diastolic Heart failure chronicity: acute on chronic SANDY (acute kidney injury) N17.9 Atrial fibrillation I48.21 Atrial fibrillation type: permanent Status post mitral valve annuloplasty Z98.890 H/O tricuspid valve annuloplasty Z98.890 Pacemaker Z95.0 Diabetes E11.9 Diabetes mellitus type: type 2 Diabetes mellitus ocean transportation intermediary insulin use: without alf use Diabetes mellitus complication status: with kidney complications
[2020-09-11] MEDS: enoxaparin 30 mg/0.3 mL Syringe SUBCUT (18:12)
--- NOTE | 2020-09-11 19:30 | PC.NURSE ---
A transfer from med-surg floor/ [id number] Pt received via bed, Pt is alert, awake, oriented. Denies any pain, Pt is on afib rvr upon arrival to floor. Hr-120s to 130s, BP-105/73. Adnibister PRN IVP metoprolol 5 mg as ordered.
[2020-09-11] MEDS: metoprolol tartrate 1 mg/1 mL SDV 5 mL 5 MG IV (19:47)
[2020-09-11 20:07] LABS: Glucose Point of Care 238 mg/dL (70-110)
[2020-09-11] MEDS: trazodone 100 mg Tablet PO (20:09)
--- NOTE | 2020-09-11 21:08 | PC.NURSE ---
Patient has no complaints at this time. Will monitor.
[2020-09-12] VITALS (27 sets, daily range): BP systolic 81–114; BP diastolic 50–89; PULSE 97–139; RESP 26–36; TEMP 36.7–36.8; O2SAT 94–99
[2020-09-12 00:02] LABS: Glucose Point of Care 190 mg/dL (70-110)
--- NOTE | 2020-09-12 01:45 | PC.NURSE ---
Patient has no complaints at this time. Will monitor.
[2020-09-12 03:49] LABS: Glucose Point of Care 177 mg/dL (70-110)
[2020-09-12 05:51] LABS: Basophils % 0.3 %; Eosinophils # 0.2 10^3/uL (0.0-0.8); Eosinophils % 3.3 %; Hematocrit 32.7 % (37.0-47.0); Hemoglobin 9.9 g/dL (11.5-15.3); Lymphocytes # 0.7 10^3/uL (0.8-4.8); Lymphocytes % 9.2 %; Mean Corpuscular HGB Conc 30.3 g/dL (30.0-36.0); Mean Corpuscular Hemoglobin 24.4 pg (28.0-34.0); Mean Corpuscular Volume 80.7 fL (81-99); Mean Platelet Volume 12.3 fL (7.4-10.4); Monocytes # 0.6 10^3/uL (0.2-0.9); Monocytes % 9.1 %; Neutrophils # 5.44 10^3/uL (1.8-7.7); Neutrophils % 77.1 %; Nucleated Red Blood Cells % 0 %; Platelet Count 99 10^3/cmm (130-400); Red Blood Count 4.05 10^6/uL (4.1-5.3); Red Cell Distribution Width 15.7 % (12.1-15.1); White Blood Count 7.1 10^3/uL (4.0-10.0)
[2020-09-12 06:38] LABS: Alanine Aminotransferase < 5 U/L (0-33); Alkaline Phosphatase 58 IU/L (35-105); Anion Gap 16.4 (5-19); Aspartate Amino Transferase 9 U/L (0-32); Blood Urea Nitrogen 75 mg/dL (8-23); Calcium 9.2 mg/dL (8.5-10.5); Carbon Dioxide 24 mmol/L (22-29); Chloride 95 mmol/L (98-107); Globulin 2.7 g/dL (1.3-4.6); Glomerular Filtration Rate 20.3 mL/min (90-130); Glucose 177 mg/dL (65-115); Osmolality Calculated 301 mOsm/kg (285-295); Potassium 3.4 mmol/L (3.5-5.1); Sodium 132 mmol/L (136-145); Total Bilirubin 1.1 mg/dL (0.15-1.2); Total Protein 6.7 g/dL (6.6-8.7)
--- NOTE | 2020-09-12 06:55 | PC.NURSE ---
Dr. Perry notified of patient's heart rate running 128 in a-fib. Patient has PRN Lopressor IV, however patient's blood pressure is 96/74. Ordered not to give PRN Lopressor and stated he ordered Cardizem.
[2020-09-12] MEDS: lidocaine 1% 5 ML in potassium chloride premix 100 ML 50 ML IV (07:42)
[2020-09-12 07:48] LABS: Glucose Point of Care 169 mg/dL (70-110)
--- NOTE | 2020-09-12 09:24 | PM.PN ---
Subjective Subjective: Interval history: Feels very weak and tired, but no new issues. Lasix given yesterday, good diuretic response. Needs to mobilize. Still has significant edema in the legs Medications: Reviewed: Yes Medication Review Details: Current Medications Acetaminophen (Tylenol) 650 mg PO Q6H PRN PRN Reason: Mild/Mod Pain Or Temp >/= 101 Amiodarone HCl (Cordarone) 400 mg PO Q8H [facility] Atorvastatin Calcium (Lipitor) 20 mg PO DAILY [facility] Last Admin: 09/10/20 08:35 Dose: 20 mg Documented by: Bumetanide (Bumex) 2 mg IV Q12H [facility] Last Admin: 09/08/20 20:06 Dose: 2 mg Documented by: Enoxaparin Sodium (Lovenox) 95 mg SUBCUT ONCE ONE Stop: 09/10/20 18:01 Enoxaparin Sodium (Lovenox) 30 mg SUBCUT ONCE ONE Stop: 09/11/20 18:01 Metoprolol Tartrate (Metoprolol Tartrate) 5 mg IV Q4H PRN PRN Reason: tachycardia Last Admin: 09/09/20 00:34 Dose: 5 mg Documented by: Metoprolol Tartrate (Lopressor) 12.5 mg PO BID [facility] Last Admin: 09/09/20 17:46 Dose: 12.5 mg Documented by: Ondansetron HCl (Zofran) 4 mg IVP Q6H PRN PRN Reason: NAUSEA AND VOMITING Potassium Chloride (Klor-Con 10) 20 meq PO DAILY [facility] Last Admin: 09/10/20 10:41 Dose: 20 meq Documented by: Vitals/I&O/Wt Last Vital Signs Temp 98.1 F 09/12/20 07:40 Pulse 111 H 09/12/20 08:16 Resp 36 H 09/12/20 07:40 BP 107/70 09/12/20 07:52 Pulse Ox 94 09/12/20 08:16 09/11/20 09/12/20 09/12/20 22:59 06:59 14:59 Intake Total 500 / 1445 Output Total 1400 / 1400 Balance -900 / 45 Weight last 48 hrs Weight 102.829 kg Weight 102.33 kg Physical Exam Const: COMMON NORMALS: no acute distress Chest: COMMONS NORMALS: normal inspection of the chest and normal palpation of entire chest wall CHEST: Yes abnormal inspection of the chest and Yes Symmetrical chest wall rise Resp: COMMON NORMALS: normal respiratory effort EFFORT & INSPECTION: Yes able to speak in complete sentences and Yes decreased respiratory effort AUSCULTATION: diminished lung sounds Cardio: RHYTHM: abnormal rhythm GI: COMMON NORMALS: Normal to inspection, nondistended, normoactive bowel sounds present Urinary Catheter Management^: Slater: Cath Placed During This Visit: yes Reason for Continuing Indwelling Catheter: Accurate Measurement of Urinary Output in Critically Ill Patients Urinary Catheter Date of Insertion: 09/10/20 Urinary Catheter Time of Insertion: 15:36 Data : 09/12/20 05:33 09/12/20 05:33 A&P Additional A&P Information 1. SANDY - creatinine better and good diuretic response yesterday - likely to be hemodynamically mediated ie cardiorenal syndrome type 1. - passive renal congestion possible given high right sided pressures - Continue Lasix 60mg ivp Q12 - hopefully we can transition her to PO lasix in next few days - am labs - avoid the usuals - Strict Is and Os 2. hyponatremia and hypoK - an ominous sign in CHF patients, stress response to hypothalamus. Monitor for now - K replacement ordered, 20 mEq iv and PO 3. Afib, RVR, heart failure - rate still high, mgmt per Dr Pavon 4. UTI on Levaquin 5. OOB to chair, PT/OT Thanks for consultation, will follow closely with the team Attestations Medical Necessity Statement*: Eval for renal failure Coding Level of Care Code Acute Business Intelligence Director for [facility]
[2020-09-12] MEDS: FUROsemide 10 mg/mL SDV 10mL 80 MG IVP ×2 (09:27→20:40)
[2020-09-12] MEDS: potassium chloride ER 10 mEq Tablet 20 MEQ PO ×2 (09:27→17:16)
[2020-09-12] MEDS: amiodarone 200 mg Tablet 400 MG PO ×2 (09:27→16:59)
--- NOTE | 2020-09-12 09:46 | P.PN_ITS ---
Subjective Subjective: Interval history: Attempted thoracentesis without much fluid removal. She continues to appears tachypneic and gets short of breath with minimal exertion. Denies having any chest pain. Patient feels about the same, no new complains. About 1 pounds weight gain since yesterday. UO ~1400, -540 ml Medications: Reviewed: Yes Medication Review Details: Current Medications Acetaminophen (Tylenol) 650 mg PO Q6H PRN PRN Reason: Mild/Mod Pain Or Temp >/= 101 Amiodarone HCl (Cordarone) 400 mg PO BID [facility] Last Admin: 09/12/20 09:27 Dose: 400 mg Documented by: Atorvastatin Calcium (Lipitor) 20 mg PO BEDTIME [facility] Dextrose (D50w) 25 ml IVP ONCE PRN; Protocol PRN Reason: hypoglycemia protocol Dextrose (D50w) 50 ml IVP PRN PRN; Protocol PRN Reason: hypoglycemia protocol Furosemide (Lasix) 80 mg IVP Q12H [facility] Last Admin: 09/12/20 09:27 Dose: 80 mg Documented by: Glucagon (Glucagen) 1 mg IM ONCE PRN; Protocol PRN Reason: Adult Acute Hypoglycemia Prot. Dextrose (D5w) 500 mls @ 100 mls/hr IV ONCE PRN; Protocol PRN Reason: Adult Acute Hypoglycemia Prot Insulin Aspart (Novolog) 0 unit SUBCUT WM&BEDTIME [facility]; Protocol Last Admin: 09/12/20 07:50 Dose: 2 unit Documented by: Metoprolol Tartrate (Metoprolol Tartrate) 5 mg IV Q4H PRN PRN Reason: tachycardia Last Admin: 09/11/20 19:47 Dose: 5 mg Documented by: Ondansetron HCl (Zofran) 4 mg IVP Q6H PRN PRN Reason: NAUSEA AND VOMITING Potassium Chloride (Klor-Con 10) 20 meq PO BID [facility] Last Admin: 09/12/20 09:27 Dose: 20 meq Documented by: Trazodone HCl (Desyrel) 100 mg PO BEDTIME [facility] Last Admin: 09/11/20 20:09 Dose: 100 mg Documented by: Vitals/I&O/Wt Last Vital Signs Temp 98.1 F 09/12/20 07:40 Pulse 111 H 09/12/20 08:16 Resp 36 H 09/12/20 07:40 BP 107/70 09/12/20 07:52 Pulse Ox 94 09/12/20 08:16 09/11/20 09/12/20 09/12/20 22:59 06:59 14:59 Intake Total 500 / 1445 Output Total 1400 / 1400 Balance -900 / 45 Weight last 48 hrs Weight 226 lb 11.2 oz Weight 225 lb 9.6 oz Physical Exam Narrative: EXAM NARRATIVE: Gen: NAD, obese, laying down propped up in the bed HEENT: PERRL, No pallor or icterus Neck: No thyromegaly, JVD PA: soft, obese, no abdominal wall edema, NT. 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 Urinary Catheter Management^: Slater: Cath Placed During This Visit: yes Reason for Continuing Indwelling Catheter: Accurate Measurement of Urinary Output in Critically Ill Patients Urinary Catheter Date of Insertion: 09/10/20 Urinary Catheter Time of Insertion: 15:36 Data : 09/12/20 05:33 09/12/20 05:33 A&P Assessment and plan (1) CHF (congestive heart failure): Mildly decreased left ventricular systolic function and right ventricular failure. -strict input output charting and daily weight. -She appears volume overloaded clinically with 3+ lower extremity edema extending up to her thighs -Her dry weight is ~195 pounds and she is weighing 226 pounds here in the hospital today. -I had ordered for Bumex 2 mg IV in the morning which was not administered by nursing staff (due to unclear reasons; I was not informed of the same). -Lasix drip was attempted by Dr. Melgar and then held because of low blood pressure followed by administration of 80 Lasix 80 mg IV x1 at 1 PM along with albumin 25 g follow by another dose at 10:30 pm last night with albumin. -Change to Lasix 80 mg IV every 12 hours (0900, 2100) -She has a indwelling Slater catheter now. Status: Acute Qualifiers: Heart failure type: combined systolic and diastolic Heart failure chronicity: acute on chronic Qualified Code(s): I50.43 - Acute on chronic combined systolic (congestive) and diastolic (congestive) heart failure (2) SANDY (acute kidney injury): SANDY on CKD stage IV, likely in setting of renal vascular congestion -renal function improved somewhat this morning. Cr 3-->2.5-->2.7--2.4; BUN 77-->67-> 75. -May need dialysis if she does not respond to Lasix. -Nephrology on board Status: Acute (3) Atrial fibrillation: She is currently tachycardic. Cardizem and metoprolol have been held because of her blood pressure being low since admission. -Start on metoprolol 5 mg IV PRN and 400 TID amiodarone -Heart rate has been running 110-130s. -May try low dose metoprolol succinate 12.5 mg, once permissible with her blood pressure. -Continue to hold Xarelto. Status: Acute Qualifiers: Atrial fibrillation type: permanent Qualified Code(s): I48.21 - Permanent atrial fibrillation (4) Status post mitral valve annuloplasty: Status: Acute (5) H/O tricuspid valve annuloplasty: Status: Acute (6) Pacemaker: Status: Acute (7) Diabetes: Status: Acute Qualifiers: Diabetes mellitus type: type 2 Diabetes mellitus ad terminal makeup operator insulin use: without ad terminal makeup operator use Diabetes mellitus complication status: with kidney complications Additional A&P Information Hypotension: BP has been soft; we might have to give her albumin if need be. No iv fluids today. Moderate sized right pleural effusion-Xarelto has been held. Possible right lower lobe pneumonia : On antibiotics as per primary team. Elevated d-dimer : Low probability of PE on VQ scan Anemia Klebsiella UTI Thank you for allowing me to participate in patient's care. Please feel free to call with questions or concerns. Attestations Medical Necessity Statement*: Needs hospital stay for decompensated congestive heart failure and worsening renal function. Coding Level of Care Code Acute Fast Food Crew Lead for Braeden Kuhn Diagnoses CHF (congestive heart failure) I50.43 Heart failure type: combined systolic and diastolic Heart failure chronicity: acute on chronic SANDY (acute kidney injury) N17.9 Atrial fibrillation I48.21 Atrial fibrillation type: permanent Status post mitral valve annuloplasty Z98.890 H/O tricuspid valve annuloplasty Z98.890 Pacemaker Z95.0 Diabetes E11.9 Diabetes mellitus type: type 2 Diabetes mellitus ad terminal makeup operator insulin use: without snf use Diabetes mellitus complication status: with kidney complications
--- NOTE | 2020-09-12 09:55 | PC.NURSE ---
Telephone order from Dr. Pavon to call if HR is greater than 120. Continue to monitor BP, RBTO.
--- NOTE | 2020-09-12 10:03 | US_ITS ---
WS: [id number] ULTRASOUND-GUIDED THORACENTESIS, therapeutic and diagnostic. HISTORY: RIGHT thoracentesis. Procedure, risks, and complications were explained to the patient. With the patient in an upright pos ition, the skin over the RIGHT posterior thorax was cleansed with ChloraPrep and anesthetized with 1% buffered lidocaine. A 5 Frisian Yueh needle is inserted into the pleural fluid without complication. Approximately 1000 cc of light red pleural fluid is removed without difficulty. Specimen collected for analysis as requested. / thoracentesis [id number] IMPRESSION: 1. RIGHT thoracentesis yielding 1000 cc of fluid. 2. Chest radiograph to follow to evaluate for pneumothorax. 3. Specimen collected for analysis as requested.
--- NOTE | 2020-09-12 10:08 | P.PN_ITS ---
Subjective Subjective: Interval history: No acute overnight events. Diuresis with 80 mg of IV Lasix every 12 hours. Plan for ultrasound-guided thoracentesis today afternoon. Denies any current chest pain dyspnea or palpitations. Medications: Reviewed: Yes Vitals/I&O/Wt Last Vital Signs Temp 98.1 F 09/12/20 07:40 Pulse 111 H 09/12/20 08:16 Resp 36 H 09/12/20 07:40 BP 107/70 09/12/20 07:52 Pulse Ox 94 09/12/20 08:16 09/11/20 09/12/20 09/12/20 22:59 06:59 14:59 Intake Total 500 / 1445 Output Total 1400 / 1400 Balance -900 / 45 Weight last 48 hrs Weight 102.829 kg Weight 102.33 kg Physical Exam Narrative: EXAM NARRATIVE: GEN: Awake, alert and oriented, no acute distress CVS: S1S2N RS: CTA B/L Abd: Soft, nt/nd , bs+ MOLD PREPARER: no focal neuro deficits Urinary Catheter Management^: Slater: Cath Placed During This Visit: yes Reason for Continuing Indwelling Catheter: Accurate Measurement of Urinary Output in Critically Ill Patients Urinary Catheter Date of Insertion: 09/10/20 Urinary Catheter Time of Insertion: 15:36 Data : 09/12/20 05:33 09/12/20 05:33 A&P Assessment and plan (1) Hypoxia: Stable. Requiring about 2-1/2 L of oxygen by nasal cannula. Continue 80 mg of IV Lasix every 12 hours along with concomitant albumin for blood pressure drops. Maintain Slater if she is able to tolerate for accurate NATHALIE's. Dily weight Plan for ultrasound-guided thoracentesis later today. VQ scan with low probability of PE. We have held her anticoagulation. Thoracentesis was kindly attempted by Dr. Bajwa, but without much fluid available for removal. Chest x-ray without change 09/10. Do appreciate nephrology expertise as well. Discussed with her briefly, in case her condition was getting worse she would be agreeable if needed for temporary hemodialysis, although would of course like to avoid this if possible. Negative COVID-19 PCR. Rapid flu negative. Continue antibiotic for pneumonia. Hypoxia is multifactorial secondary to pneumonia, CHF, possibly some contribution secondary from right pleural effusion. Pulmonary hypertension noted on echo. Right ventricular failure. Cough is nonproductive, if starts having some phlegm, collect sputum culture. Status: Acute (2) Pneumonia: RLL. Denies symptoms of aspiration. As above. Status: Acute (3) CHF (congestive heart failure): Acute exacerbation of chronic systolic congestive heart failure. Renal function with slight improvement. Limited TTE with ejection 40-45%, at least moderate TR, small pericardial effusion, severe pulmonary hypertension. EF 45%. Has been in exacerbation w LE edema, dyspnea. She is currently hypotensive, with acute kidney injury. Status: Acute Qualifiers: Heart failure type: combined systolic and diastolic Heart failure chronicity: acute on chronic Qualified Code(s): I50.43 - Acute on chronic combined systolic (congestive) and diastolic (congestive) heart failure (4) SANDY (acute kidney injury): Slight improvement in acute kidney injury. Appears to have RV failure, with suspected renal congestive changes, trial of diuretics. Cardiorenal syndrome. Status: Acute (5) Hypotension: Slightly better. Soft blood pressures. Resumed cautiously on low-dose metoprolol. Monitor. Albumin bolus again today after diuresis Maintain goal mean arterial pressure 65 mmHg or above. Status: Acute (6) UTI (urinary tract infection): Klebsiella on urine cultures. Continue Levaquin as above. Status: Acute (7) Elevated d-dimer: Continue anticoagulation. Low probability for PE on VQ scan. Negative COVID-19 PCR. Status: Acute (8) Hyperkalemia: Hold potassium supplement. Hold spironolactone. Monitor renal function. Status: Acute (9) Hypoglycemia: Improving. Hold detemir. Continue to monitor. Status: Acute Additional A&P Information Hypokalemia: Replaced. History of mitral valve annulus Atrial fibrillation: Appreciate cardiology assessment. Metoprolol added as needed IV. P.o. amiodarone. Amnio infusion awaited so as not to contribute to fluid overload. Started on low-dose with 12.5 mg by mouth, but could not tolerate use of blood pressures. History of maze procedure back in persistent A. fib. Status post PPM. Normally on Cardizem and metoprolol. Hold Cardizem currently due to soft blood pressures. Monitor on telemetry. Diabetes: Hold detemir for now. Monitor glucose. Consistent carbohydrate diet. Add sliding scale. Status post pacemaker History of HTN: Currently hypotensive Other chronic medical problems. Attestations Medical Necessity Statement*: Assessment for US guided thoracentesis today Coding Level of Care Code Acute Machine Packaging Technician for Chg Fwd Diagnoses Hypoxia R09.02 Pneumonia J18.9 CHF (congestive heart failure) I50.43 Heart failure type: combined systolic and diastolic Heart failure chronicity: acute on chronic SANDY (acute kidney injury) N17.9 Hypotension I95.9 UTI (urinary tract infection) N39.0 Elevated d-dimer R79.89 Hyperkalemia E87.5 Hypoglycemia E16.2
[2020-09-12 11:19] LABS: Glucose Point of Care 181 mg/dL (70-110)
[2020-09-12] MEDS: metoprolol tartrate 1 mg/1 mL SDV 5 mL 5 MG IV (12:23)
[2020-09-12 12:47] LABS: INR 1.24 (0.8-1.2)
--- NOTE | 2020-09-12 13:11 | PC.NURSE ---
Dr. Pavon updated on patient condition. Patient has 325 ml of urine output for the shift so far. No new orders received. Nurse to continue to monitor.
--- NOTE | 2020-09-12 14:00 | PC.NURSE ---
Leak identified in thompson bag. Large amount of urine had leaked onto the floor besides documented I&O. Output unmeasurable. Dr. Pavon notified. Thompson bag replaced for accurate I&O. No further orders received at this time.
--- NOTE | 2020-09-12 14:55 | XR_ITS ---
WS: [id number] PORTABLE CHEST HISTORY: post thoracentesis COMPARISON: 09/10/2020 No pneumothorax status post RIGHT thoracentesis. Lungs are clear and well expanded. Very small residual RIGHT pleural effusion. Cardiac size: Mildly enlarged cardiac silhouette. Mediastinum/Aorta: Dual-lead LEFT subclavian pacer. No osseous abnormality seen. XR/XR chest 1V portable [id number] IMPRESSION: 1. Small residual RIGHT pleural effusion. 2. No pneumothorax status post thoracentesis.
--- NOTE | 2020-09-12 15:03 | DCPLANNER ---
IMM completed 09/12/2020 @ 4524. Pt was given a copy of rights.
--- NOTE | 2020-09-12 15:30 | PC.NURSE ---
Thoracentesis procedure start at 1450. incision at 1452. procedure stop at 1505. Patient tolerated well. VSS throughout procedure. Stat CXR obtained. Lungs auscultated.
[2020-09-12 16:28] LABS: Glucose Point of Care 171 mg/dL (70-110)
[2020-09-12] MEDS: albumin 12.5 GM/250 ML VIAL IV (16:54)
[2020-09-12 18:43] LABS: Mononuclear %, Pleural Fluid 83 %; Mononuclear, Pleural Fluid # 0.222 10^3/uL; Polynuclear Cells, Pleural # 0.045 10^3/uL; Polynuclear Cells, Pleural % 17 %
[2020-09-12 18:45] LABS: PATH Referral YES
[2020-09-12 20:27] LABS: Glucose Point of Care 181 mg/dL (70-110)
[2020-09-12] MEDS: atorvastatin 40 mg Tablet 20 MG PO (20:39)
[2020-09-12] MEDS: trazodone 100 mg Tablet PO (20:39)
--- NOTE | 2020-09-12 20:49 | PC.NURSE ---
Patient has no complaints at this time. Will monitor.
[2020-09-12 21:01] LABS: Pleural Fluid Albumin 1.5 g/dL; Total Protein Pleural Fluid 2.3 g/dL
[2020-09-12 21:02] LABS: Appearance, Pleural Fluid CLEAR (CLEAR); Color, Pleural Fluid Yellow (Pale Yellow); LDH Pleural Fluid 104 U/L
[2020-09-13] VITALS (8 sets, daily range): BP systolic 87–111; BP diastolic 62–72; PULSE 104–156; RESP 16–95; TEMP 36.5–37.2; O2SAT 96–99
[2020-09-13 00:38] LABS: Glucose Point of Care 152 mg/dL (70-110)
[2020-09-13 04:47] LABS: Basophils % 0.4 %; Eosinophils # 0.3 10^3/uL (0.0-0.8); Hematocrit 32.8 % (37.0-47.0); Hemoglobin 9.9 g/dL (11.5-15.3); Lymphocytes # 0.8 10^3/uL (0.8-4.8); Mean Corpuscular HGB Conc 30.2 g/dL (30.0-36.0); Mean Corpuscular Hemoglobin 24.8 pg (28.0-34.0); Mean Corpuscular Volume 82.2 fL (81-99); Monocytes # 0.6 10^3/uL (0.2-0.9); Monocytes % 8.7 %; Neutrophils # 4.99 10^3/uL (1.8-7.7); Neutrophils % 73.9 %; Nucleated Red Blood Cells % 0 %; Platelet Count 93 10^3/cmm (130-400); Red Blood Count 3.99 10^6/uL (4.1-5.3); Red Cell Distribution Width 15.8 % (12.1-15.1); White Blood Count 6.8 10^3/uL (4.0-10.0)
[2020-09-13 05:24] LABS: Alanine Aminotransferase < 5 U/L (0-33); Albumin Level 3.6 g/dL (3.5-5.2); Alkaline Phosphatase 58 IU/L (35-105); Anion Gap 17.3 (5-19); Aspartate Amino Transferase 11 U/L (0-32); Blood Urea Nitrogen 67 mg/dL (8-23); Calcium 9.4 mg/dL (8.5-10.5); Carbon Dioxide 24 mmol/L (22-29); Chloride 96 mmol/L (98-107); Globulin 2.7 g/dL (1.3-4.6); Glomerular Filtration Rate 20.3 mL/min (90-130); Glucose 150 mg/dL (65-115); Osmolality Calculated 300 mOsm/kg (285-295); Potassium 3.3 mmol/L (3.5-5.1); Sodium 134 mmol/L (136-145); Total Protein 6.3 g/dL (6.6-8.7)
[2020-09-13 06:15] LABS: Glucose Point of Care 145 mg/dL (70-110)
[2020-09-13] MEDS: FUROsemide 10 mg/mL SDV 10mL 80 MG IVP ×2 (07:38→20:07)
[2020-09-13] MEDS: lidocaine 1% 5 ML in potassium chloride premix 100 ML 50 ML IV (07:41)
[2020-09-13 08:21] LABS: Lactate Dehydrogenase 312 U/L (135-214); Magnesium 2.3 mg/dL (1.7-2.3)
--- NOTE | 2020-09-13 08:30 | PC.NURSE ---
Verbal order received from [facility] to administer metalazone 30 minutes prior to lasix dose. Physician notified patient had already received morning lasix dose. No new orders received. Nurse to continue to monitor.
[2020-09-13] MEDS: amiodarone 200 mg Tablet 400 MG PO ×2 (09:15→17:31)
--- NOTE | 2020-09-13 09:15 | P.PN_ITS ---
Subjective Subjective: Interval history: Feels better after having thoracentesis. Diuresing well with iv Lasix. No uremic Sx. Still has significant edema Medications: Reviewed: Yes Medication Review Details: Current Medications Acetaminophen (Tylenol) 650 mg PO Q6H PRN PRN Reason: Mild/Mod Pain Or Temp >/= 101 Amiodarone HCl (Cordarone) 400 mg PO BID [facility] Last Admin: 09/12/20 09:27 Dose: 400 mg Documented by: Atorvastatin Calcium (Lipitor) 20 mg PO BEDTIME [facility] Dextrose (D50w) 25 ml IVP ONCE PRN; Protocol PRN Reason: hypoglycemia protocol Dextrose (D50w) 50 ml IVP PRN PRN; Protocol PRN Reason: hypoglycemia protocol Furosemide (Lasix) 80 mg IVP Q12H [facility] Last Admin: 09/12/20 09:27 Dose: 80 mg Documented by: Glucagon (Glucagen) 1 mg IM ONCE PRN; Protocol PRN Reason: Adult Acute Hypoglycemia Prot. Dextrose (D5w) 500 mls @ 100 mls/hr IV ONCE PRN; Protocol PRN Reason: Adult Acute Hypoglycemia Prot Insulin Aspart (Novolog) 0 unit SUBCUT WM&BEDTIME [facility]; Protocol Last Admin: 09/12/20 07:50 Dose: 2 unit Documented by: Metoprolol Tartrate (Metoprolol Tartrate) 5 mg IV Q4H PRN PRN Reason: tachycardia Last Admin: 09/11/20 19:47 Dose: 5 mg Documented by: Ondansetron HCl (Zofran) 4 mg IVP Q6H PRN PRN Reason: NAUSEA AND VOMITING Potassium Chloride (Klor-Con 10) 20 meq PO BID [facility] Last Admin: 09/12/20 09:27 Dose: 20 meq Documented by: Trazodone HCl (Desyrel) 100 mg PO BEDTIME [facility] Last Admin: 09/11/20 20:09 Dose: 100 mg Documented by: Vitals/I&O/Wt Last Vital Signs Temp 98 F 09/13/20 04:00 Pulse 119 H 09/13/20 09:14 Resp 30 H 09/13/20 09:14 BP 90/72 09/13/20 09:14 Pulse Ox 99 09/13/20 09:14 09/12/20 09/13/20 09/13/20 22:59 06:59 14:59 Intake Total 370 / 575 240 / 815 360 / 360 Output Total 1400 / 1725 Balance 370 / 250 -1160 / -910 360 / 360 Weight last 48 hrs Weight 103.419 kg Weight 102.829 kg Physical Exam Const: COMMON NORMALS: no acute distress Chest: COMMONS NORMALS: normal inspection of the chest and normal palpation of entire chest wall CHEST: Yes abnormal inspection of the chest and Yes Symmetrical chest wall rise Resp: COMMON NORMALS: normal respiratory effort EFFORT & INSPECTION: Yes able to speak in complete sentences and Yes decreased respiratory effort AUSCULTATION: diminished lung sounds Cardio: RHYTHM: abnormal rhythm GI: COMMON NORMALS: Normal to inspection, nondistended, normoactive bowel sounds present Urinary Catheter Management^: Slater: Cath Placed During This Visit: yes Reason for Continuing Indwelling Catheter: Other Urinary Catheter Date of Insertion: 09/10/20 Urinary Catheter Time of Insertion: 15:36 Data : 09/13/20 03:50 09/13/20 03:50 Micro: Microbiology 09/07/20 15:05 Blood Culture - Final Blood NO GROWTH AFTER 5 DAYS 09/07/20 15:00 Blood Culture - Final Blood NO GROWTH AFTER 5 DAYS A&P Additional A&P Information 1. SANDY - creatinine remains stable and good diuretic response yesterday - likely to be hemodynamically mediated ie cardiorenal syndrome type 1. - passive renal congestion possible given high right sided pressures - Continue Lasix 60mg ivp Q12 - hopefully we can transition her to PO lasix in next few days - am labs - avoid the usuals - Strict Is and Os 2. hyponatremia and hypoK - an ominous sign in CHF patients, stress response to hypothalamus. Monitor for now - K replacement ordered, 20 mEq iv and PO 3. Afib, RVR, heart failure - rate still high, mgmt per Dr Pavon 4. UTI on Levaquin 5. OOB to chair, PT/OT 6. S/p Thoracentesis yesterday Thanks for consultation, will follow closely with the team Attestations Medical Necessity Statement*: aydeal for Sandy Coding Level of Care Code Acute Card Stripper for Zhaog Bam
[2020-09-13] MEDS: metOLazone 5 MG Tablet PO (09:16)
[2020-09-13] MEDS: potassium chloride ER 10 mEq Tablet 40 MEQ PO ×2 (09:16→17:31)
[2020-09-13 11:49] LABS: Glucose Point of Care 324 mg/dL (70-110)
--- NOTE | 2020-09-13 11:55 | PC.NURSE ---
Dr. Pavon contacted via telephone and updated on patient condition. Patient SBP 80-90s, HR 120s-140s. Physician gave telephone order to administer 12.5 of albumin IV once, RBTO. Continue to monitor.
--- NOTE | 2020-09-13 12:01 | PM.PN ---
Subjective Subjective: Interval history: Patient feels better, Still remains in A. fib with RVR with HR 110's-130's. No CP, no bowel movement since saturday. s/p 1 L transudative effusion removal Medications: Reviewed: Yes Medication Review Details: Current Medications Acetaminophen (Tylenol) 650 mg PO Q6H PRN PRN Reason: Mild/Mod Pain Or Temp >/= 101 Amiodarone HCl (Cordarone) 400 mg PO BID [facility] Last Admin: 09/13/20 09:15 Dose: 400 mg Documented by: Atorvastatin Calcium (Lipitor) 20 mg PO BEDTIME [facility] Last Admin: 09/12/20 20:39 Dose: 20 mg Documented by: Dextrose (D50w) 25 ml IVP ONCE PRN; Protocol PRN Reason: hypoglycemia protocol Dextrose (D50w) 50 ml IVP PRN PRN; Protocol PRN Reason: hypoglycemia protocol Furosemide (Lasix) 80 mg IVP Q12H [facility] Last Admin: 09/13/20 07:38 Dose: 80 mg Documented by: Glucagon (Glucagen) 1 mg IM ONCE PRN; Protocol PRN Reason: Adult Acute Hypoglycemia Prot. Dextrose (D5w) 500 mls @ 100 mls/hr IV ONCE PRN; Protocol PRN Reason: Adult Acute Hypoglycemia Prot Albumin Human (Albumin) 12.5 gm in 250 mls @ 300 mls/hr IV ONCE ONE Stop: 09/13/20 13:19 Insulin Aspart (Novolog) 0 unit SUBCUT WM&BEDTIME [facility]; Protocol Last Admin: 09/13/20 07:39 Dose: 2 unit Documented by: Metolazone (Zaroxolyn) 5 mg PO DAILY [facility] Last Admin: 09/13/20 09:16 Dose: 5 mg Documented by: Metoprolol Tartrate (Metoprolol Tartrate) 5 mg IV Q4H PRN PRN Reason: tachycardia Last Admin: 09/12/20 12:23 Dose: 5 mg Documented by: Ondansetron HCl (Zofran) 4 mg IVP Q6H PRN PRN Reason: NAUSEA AND VOMITING Potassium Chloride (Klor-Con 10) 40 meq PO BID [facility] Last Admin: 09/13/20 09:16 Dose: 40 meq Documented by: Trazodone HCl (Desyrel) 100 mg PO BEDTIME [facility] Last Admin: 09/12/20 20:39 Dose: 100 mg Documented by: Vitals/I&O/Wt Last Vital Signs Temp 97.8 F 09/13/20 11:52 Pulse 127 H 09/13/20 11:52 Resp 18 09/13/20 11:52 BP 87/64 09/13/20 11:52 Pulse Ox 96 09/13/20 11:52 09/12/20 09/13/20 09/13/20 22:59 06:59 14:59 Intake Total 370 / 575 240 / 815 360 / 360 Output Total 1400 / 1725 Balance 370 / 250 -1160 / -910 360 / 360 Weight last 48 hrs Weight 228 lb Weight 226 lb 11.2 oz Physical Exam Narrative: EXAM NARRATIVE: Gen: NAD, obese, laying down propped up in the bed HEENT: PERRL, No pallor or icterus Neck: No thyromegaly, JVD RS: Improved air entry in right mid to basal lung field. decreased at bases. No wheezing, rales or rhonchi PA: soft, obese, no abdominal wall edema, NT. 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 Urinary Catheter Management^: Slater: Cath Placed During This Visit: yes Reason for Continuing Indwelling Catheter: Other Urinary Catheter Date of Insertion: 09/10/20 Urinary Catheter Time of Insertion: 15:36 Data : 09/13/20 03:50 09/13/20 03:50 Micro: Microbiology 09/12/20 15:15 Gram Stain - Final Pleural Fluid 09/07/20 15:05 Blood Culture - Final Blood NO GROWTH AFTER 5 DAYS 09/07/20 15:00 Blood Culture - Final Blood NO GROWTH AFTER 5 DAYS A&P Assessment and plan (1) CHF (congestive heart failure): Mildly decreased left ventricular systolic function and right ventricular failure. -strict input output charting and daily weight. -She appears volume overloaded clinically with 3+ lower extremity edema extending up to her thighs -Her dry weight is ~195 pounds and she is weighing 228 pounds here in the hospital today. -Change to Lasix 80 mg IV every 12 hours . metolazone 5 mg daily added. -She has a indwelling Slater catheter now. Status: Acute (2) SANDY (acute kidney injury): SANDY on CKD stage IV, likely in setting of renal vascular congestion -renal function improved somewhat this morning. Cr 3-->2.5-->2.7--2.4--> 2.4; BUN 77-->67-> 75--67. -diuresing slowly. -Nephrology on board Status: Acute (3) Atrial fibrillation: She is currently tachycardic. Cardizem and metoprolol have been held because of her blood pressure being low since admission. -Start on metoprolol 5 mg IV PRN and 400 TID amiodarone -Heart rate has been running 110-130s. -May try low dose metoprolol succinate 12.5 mg, once permissible with her blood pressure. -restart Xarelto. Status: Acute (4) Status post mitral valve annuloplasty: Status: Acute (5) H/O tricuspid valve annuloplasty: Status: Acute (6) Pacemaker: Status: Acute (7) Diabetes: Status: Acute Qualifiers: Diabetes mellitus type: type 2 Diabetes mellitus salvage determiner insulin use: without salvage determiner use Diabetes mellitus complication status: with kidney complications Additional A&P Information Hypotension: BP has been soft; we might have to give her albumin if need be. No iv fluids today. Moderate sized right pleural effusion-s/p 1 L transudative effusion removal Possible right lower lobe pneumonia : On antibiotics as per primary team. Elevated d-dimer : Low probability of PE on VQ scan Anemia Klebsiella UTI HYpokalemia Throbocytopenia Thank you for allowing me to participate in patient's care. Please feel free to call with questions or concerns. Attestations Medical Necessity Statement*: Needs hospital stay for decompensated congestive heart failure, a fib with RVR and worsening renal function. Coding Level of Care Code Acute Steeple Jack for Braeden Kuhn History Comprehensive Exam Comprehensive Medical Decision Making High Complexity Diagnoses CHF (congestive heart failure) I50.9 SANDY (acute kidney injury) N17.9 Atrial fibrillation I48.91 Status post mitral valve annuloplasty Z98.890 H/O tricuspid valve annuloplasty Z98.890 Pacemaker Z95.0 Diabetes E11.9 Diabetes mellitus type: type 2 Diabetes mellitus salvage determiner insulin use: without salvage determiner use Diabetes mellitus complication status: with kidney complications Time Spent (min) 35
[2020-09-13] MEDS: albumin 12.5 GM/250 ML VIAL IV (12:47)
--- NOTE | 2020-09-13 15:31 | PM.PN ---
Subjective Subjective: Interval history: Patient underwent thoracentesis yesterday with removal of about 1 L of fluid. States breathing is much improved since that time she feels like she has more energy and wants to attempt to ambulate today. Diuresis still going on IV per nephrology recommendations, changed to 60 mg IV every 12 hours alongside of metolazone. Medications: Reviewed: Yes Medication Review Details: Current Medications Acetaminophen (Tylenol) 650 mg PO Q6H PRN PRN Reason: Mild/Mod Pain Or Temp >/= 101 Amiodarone HCl (Cordarone) 400 mg PO BID [facility] Last Admin: 09/13/20 09:15 Dose: 400 mg Documented by: Atorvastatin Calcium (Lipitor) 20 mg PO BEDTIME [facility] Last Admin: 09/12/20 20:39 Dose: 20 mg Documented by: Dextrose (D50w) 25 ml IVP ONCE PRN; Protocol PRN Reason: hypoglycemia protocol Dextrose (D50w) 50 ml IVP PRN PRN; Protocol PRN Reason: hypoglycemia protocol Furosemide (Lasix) 80 mg IVP Q12H [facility] Last Admin: 09/13/20 07:38 Dose: 80 mg Documented by: Glucagon (Glucagen) 1 mg IM ONCE PRN; Protocol PRN Reason: Adult Acute Hypoglycemia Prot. Dextrose (D5w) 500 mls @ 100 mls/hr IV ONCE PRN; Protocol PRN Reason: Adult Acute Hypoglycemia Prot Albumin Human (Albumin) 12.5 gm in 250 mls @ 300 mls/hr IV ONCE ONE Stop: 09/13/20 13:19 Insulin Aspart (Novolog) 0 unit SUBCUT WM&BEDTIME [facility]; Protocol Last Admin: 09/13/20 07:39 Dose: 2 unit Documented by: Metolazone (Zaroxolyn) 5 mg PO DAILY [facility] Last Admin: 09/13/20 09:16 Dose: 5 mg Documented by: Metoprolol Tartrate (Metoprolol Tartrate) 5 mg IV Q4H PRN PRN Reason: tachycardia Last Admin: 09/12/20 12:23 Dose: 5 mg Documented by: Ondansetron HCl (Zofran) 4 mg IVP Q6H PRN PRN Reason: NAUSEA AND VOMITING Potassium Chloride (Klor-Con 10) 40 meq PO BID [facility] Last Admin: 09/13/20 09:16 Dose: 40 meq Documented by: Trazodone HCl (Desyrel) 100 mg PO BEDTIME [facility] Last Admin: 09/12/20 20:39 Dose: 100 mg Documented by: Vitals/I&O/Wt Last Vital Signs Temp 98.0 F 09/13/20 15:11 Pulse 116 H 09/13/20 15:11 Resp 30 H 09/13/20 15:11 BP 96/65 09/13/20 15:11 Pulse Ox 96 09/13/20 15:11 09/13/20 09/13/20 09/13/20 06:59 14:59 22:59 Intake Total 240 / 815 600 / 600 Output Total 1400 / 1725 Balance -1160 / -910 600 / 600 Weight last 48 hrs Weight 103.419 kg Weight 102.829 kg Physical Exam Narrative: EXAM NARRATIVE: GEN: Awake, alert and oriented, no acute distress CVS: S1S2 N RS: CTA B/L except crackles over RUL Abd: Soft, nt/nd , bs+ CORN SHUCKER: no focal neuro deficits Extremities 3+ pitting edema Urinary Catheter Management^: Slater: Cath Placed During This Visit: yes Reason for Continuing Indwelling Catheter: Other Urinary Catheter Date of Insertion: 09/10/20 Urinary Catheter Time of Insertion: 15:36 Data : 09/13/20 03:50 09/13/20 03:50 Micro: Microbiology 09/12/20 15:15 Gram Stain - Final Pleural Fluid 09/07/20 15:05 Blood Culture - Final Blood NO GROWTH AFTER 5 DAYS 09/07/20 15:00 Blood Culture - Final Blood NO GROWTH AFTER 5 DAYS A&P Assessment and plan (1) Hypoxia: Stable. Requiring about 2-1/2 L of oxygen by nasal cannula. Continue 60 mg of IV Lasix every 12 hours along with concomitant albumin for blood pressure drops as needed Maintain Slater for accurate NATHALIE's. Dily weight Ultrasound-guided thoracentesis performed yesterday with removal of approximately 1 L of fluid with significant improvement in patient's respiratory status VQ scan with low probability of PE. We have held her anticoagulation. Do appreciate nephrology expertise as well. Discussed with her briefly, in case her condition was getting worse she would be agreeable if needed for temporary hemodialysis, although would of course like to avoid this if possible. Negative COVID-19 PCR. Rapid flu negative. Continue antibiotics for pneumonia. Hypoxia is multifactorial secondary to pneumonia, CHF, possibly some contribution secondary from right pleural effusion. Pulmonary hypertension noted on echo. Right ventricular failure. Cough is nonproductive, if starts having some phlegm, collect sputum culture. Status: Acute (2) Pneumonia: RLL. Denies symptoms of aspiration. As above. Status: Acute (3) CHF (congestive heart failure): Acute exacerbation of chronic systolic congestive heart failure. Renal function with slight improvement. Limited TTE with ejection 40-45%, at least moderate TR, small pericardial effusion, severe pulmonary hypertension. EF 45%. Has been in exacerbation w LE edema, dyspnea. She is currently hypotensive, with acute kidney injury. Status: Acute (4) SANDY (acute kidney injury): Slight improvement in acute kidney injury. Appears to have RV failure, with suspected renal congestive changes, trial of diuretics. Cardiorenal syndrome. Status: Acute (5) Hypotension: Slightly better. Soft blood pressures. Resumed cautiously on low-dose metoprolol. Monitor. Albumin bolus again today after diuresis Maintain goal mean arterial pressure 65 mmHg or above. Status: Acute (6) UTI (urinary tract infection): Klebsiella on urine cultures. Continue Levaquin as above. Status: Acute (7) Elevated d-dimer: Continue anticoagulation. Low probability for PE on VQ scan. Negative COVID-19 PCR. Status: Acute (8) Hyperkalemia: Hold potassium supplement. Hold spironolactone. Monitor renal function. Status: Acute (9) Hypoglycemia: Improving. Hold detemir. Continue to monitor. Status: Acute Additional A&P Information Hypokalemia: Replaced. History of mitral valve annulus Atrial fibrillation: Appreciate cardiology assessment. Metoprolol added as needed IV. P.o. amiodarone. Amnio infusion awaited so as not to contribute to fluid overload. Started on low-dose with 12.5 mg by mouth, but could not tolerate use of blood pressures. History of maze procedure back in persistent A. fib. Status post PPM. Normally on Cardizem and metoprolol. Hold Cardizem currently due to soft blood pressures. Monitor on telemetry. Diabetes: Hold detemir for now. Monitor glucose. Consistent carbohydrate diet. Add sliding scale. Status post pacemaker History of HTN: Currently hypotensive Other chronic medical problems. Start PT/OT, encourage ambulation Attestations Medical Necessity Statement*: ongoing need for iv diuresis and optmization of respiratory status priro to discharge Coding Level of Care Code Acute Hogshead Head Matcher for Chg Fwd Diagnoses Hypoxia R09.02 Pneumonia J18.9 CHF (congestive heart failure) I50.9 SANDY (acute kidney injury) N17.9 Hypotension I95.9 UTI (urinary tract infection) N39.0 Elevated d-dimer R79.89 Hyperkalemia E87.5 Hypoglycemia E16.2
[2020-09-13 16:51] LABS: Glucose Point of Care 203 mg/dL (70-110)
[2020-09-13] MEDS: apixaban 5 mg Tablet 2.5 MG PO (17:32)
[2020-09-13] MEDS: metoprolol tartrate 1 mg/1 mL SDV 5 mL 5 MG IV (17:32)
[2020-09-13] MEDS: atorvastatin 40 mg Tablet 20 MG PO (20:06)
[2020-09-13] MEDS: docusate sodium 100 mg Capsule 200 MG PO (20:06)
[2020-09-13] MEDS: trazodone 100 mg Tablet PO (20:06)
[2020-09-13 20:33] LABS: Glucose Point of Care 239 mg/dL (70-110)
[2020-09-14] VITALS (7 sets, daily range): BP systolic 91–104; BP diastolic 66–78; PULSE 90–122; RESP 22–31; TEMP 36.4–36.9; O2SAT 95–97
[2020-09-14 00:10] LABS: Glucose Point of Care 151 mg/dL (70-110)
--- NOTE | 2020-09-14 01:39 | PC.NURSE ---
Patient is currently resting with eyes closed. Will monitor.
[2020-09-14 03:52] LABS: Glucose Point of Care 152 mg/dL (70-110)
[2020-09-14 05:02] LABS: Basophils % 0.3 %; Eosinophils # 0.3 10^3/uL (0.0-0.8); Eosinophils % 5.1 %; Hematocrit 31.9 % (37.0-47.0); Hemoglobin 9.6 g/dL (11.5-15.3); Lymphocytes # 0.7 10^3/uL (0.8-4.8); Lymphocytes % 11.2 %; Mean Corpuscular HGB Conc 30.1 g/dL (30.0-36.0); Mean Corpuscular Hemoglobin 24.4 pg (28.0-34.0); Mean Platelet Volume 12.5 fL (7.4-10.4); Monocytes # 0.6 10^3/uL (0.2-0.9); Monocytes % 9.4 %; Neutrophils # 4.83 10^3/uL (1.8-7.7); Neutrophils % 73.1 %; Nucleated Red Blood Cells % 0 %; Platelet Count 95 10^3/cmm (130-400); Red Blood Count 3.94 10^6/uL (4.1-5.3); Red Cell Distribution Width 15.5 % (12.1-15.1); White Blood Count 6.6 10^3/uL (4.0-10.0)
[2020-09-14 05:31] LABS: Alanine Aminotransferase < 5 U/L (0-33); Albumin Level 3.6 g/dL (3.5-5.2); Alkaline Phosphatase 57 IU/L (35-105); Anion Gap 16.2 (5-19); Aspartate Amino Transferase 11 U/L (0-32); Blood Urea Nitrogen 68 mg/dL (8-23); Carbon Dioxide 26 mmol/L (22-29); Chloride 94 mmol/L (98-107); Globulin 2.5 g/dL (1.3-4.6); Glomerular Filtration Rate 22.4 mL/min (90-130); Glucose 144 mg/dL (65-115); Osmolality Calculated 298 mOsm/kg (285-295); Potassium 3.2 mmol/L (3.5-5.1); Sodium 133 mmol/L (136-145); Total Protein 6.1 g/dL (6.6-8.7)
--- NOTE | 2020-09-14 07:14 | PM.PN ---
Subjective Subjective: Interval history: Doing well, keen to go home. Good urine output with iv Lasix and renal function is maintaining. Still has significant LE edema, breathing is improved. K being replaced Medications: Reviewed: Yes Medication Review Details: Current Medications Acetaminophen (Tylenol) 650 mg PO Q6H PRN PRN Reason: Mild/Mod Pain Or Temp >/= 101 Amiodarone HCl (Cordarone) 400 mg PO BID [facility] Last Admin: 09/13/20 09:15 Dose: 400 mg Documented by: Atorvastatin Calcium (Lipitor) 20 mg PO BEDTIME [facility] Last Admin: 09/12/20 20:39 Dose: 20 mg Documented by: Dextrose (D50w) 25 ml IVP ONCE PRN; Protocol PRN Reason: hypoglycemia protocol Dextrose (D50w) 50 ml IVP PRN PRN; Protocol PRN Reason: hypoglycemia protocol Furosemide (Lasix) 80 mg IVP Q12H [facility] Last Admin: 09/13/20 07:38 Dose: 80 mg Documented by: Glucagon (Glucagen) 1 mg IM ONCE PRN; Protocol PRN Reason: Adult Acute Hypoglycemia Prot. Dextrose (D5w) 500 mls @ 100 mls/hr IV ONCE PRN; Protocol PRN Reason: Adult Acute Hypoglycemia Prot Albumin Human (Albumin) 12.5 gm in 250 mls @ 300 mls/hr IV ONCE ONE Stop: 09/13/20 13:19 Insulin Aspart (Novolog) 0 unit SUBCUT WM&BEDTIME [facility]; Protocol Last Admin: 09/13/20 07:39 Dose: 2 unit Documented by: Metolazone (Zaroxolyn) 5 mg PO DAILY [facility] Last Admin: 09/13/20 09:16 Dose: 5 mg Documented by: Metoprolol Tartrate (Metoprolol Tartrate) 5 mg IV Q4H PRN PRN Reason: tachycardia Last Admin: 09/12/20 12:23 Dose: 5 mg Documented by: Ondansetron HCl (Zofran) 4 mg IVP Q6H PRN PRN Reason: NAUSEA AND VOMITING Potassium Chloride (Klor-Con 10) 40 meq PO BID [facility] Last Admin: 09/13/20 09:16 Dose: 40 meq Documented by: Trazodone HCl (Desyrel) 100 mg PO BEDTIME [facility] Last Admin: 09/12/20 20:39 Dose: 100 mg Documented by: Vitals/I&O/Wt Last Vital Signs Temp 98.2 F 09/14/20 03:44 Pulse 114 H 09/14/20 03:44 Resp 29 H 09/14/20 03:44 BP 104/67 09/14/20 03:44 Pulse Ox 95 09/14/20 03:44 09/13/20 09/14/20 09/14/20 22:59 06:59 14:59 Intake Total 480 / 1330 500 / 1830 Output Total 1300 / 1300 800 / 2100 Balance -820 / 30 -300 / -270 Weight last 48 hrs Weight 102.467 kg Weight 103.419 kg Physical Exam Const: COMMON NORMALS: no acute distress Chest: COMMONS NORMALS: normal inspection of the chest and normal palpation of entire chest wall CHEST: Yes abnormal inspection of the chest and Yes Symmetrical chest wall rise Resp: COMMON NORMALS: normal respiratory effort EFFORT & INSPECTION: Yes able to speak in complete sentences and Yes decreased respiratory effort AUSCULTATION: diminished lung sounds Cardio: RHYTHM: abnormal rhythm GI: COMMON NORMALS: Normal to inspection, nondistended, normoactive bowel sounds present Urinary Catheter Management^: Slater: Cath Placed During This Visit: yes Reason for Continuing Indwelling Catheter: Acute Urinary Retention or Obstruction Urinary Catheter Date of Insertion: 09/10/20 Urinary Catheter Time of Insertion: 15:36 Data : 09/14/20 04:05 09/14/20 04:05 Micro: Microbiology 09/12/20 15:15 Gram Stain - Final Pleural Fluid A&P Additional A&P Information 1. SANDY - creatinine remains stable and good diuretic response yesterday > will switch to PO dosing, high dose Torsemide 100mg BID - likely to be hemodynamically mediated ie cardiorenal syndrome type 1. - passive renal congestion possible given high right sided pressures - am labs - avoid the usuals - Strict Is and Os 2. hyponatremia and hypoK - an ominous sign in CHF patients, stress response to hypothalamus. Monitor for now - K replacement ordered 3. Afib, RVR, heart failure - rate still high, mgmt per Dr Pavon 4. UTI on Levaquin 5. OOB to chair, PT/OT 6. S/p Thoracentesis 09/12 - hopefully we can discharge her soon with close outpatient follow up on oral medication Thanks for consultation, will follow closely with the team Attestations Medical Necessity Statement*: eval for SANDY Coding Level of Care Code Acute Faculty Neuropsychologist for Braeden Kuhn
[2020-09-14] MEDS: metOLazone 5 MG Tablet PO (08:12)
[2020-09-14] MEDS: TORSEmide 20 mg Tablet 100 MG PO (08:49)
[2020-09-14] MEDS: potassium chloride ER 10 mEq Tablet 40 MEQ PO ×2 (08:49→17:45)
[2020-09-14] MEDS: rivaroxaban 10 mg Tablet 15 MG PO (08:49)
[2020-09-14] MEDS: amiodarone 200 mg Tablet 400 MG PO ×2 (08:49→17:44)
[2020-09-14] MEDS: metoprolol tartrate 25 mg Tablet 12.5 MG PO ×2 (08:50→17:44)
[2020-09-14] MEDS: lidocaine 1% 5 ML in potassium chloride premix 100 ML 25 ML IV (08:51)
--- NOTE | 2020-09-14 11:07 | DCPLANNER ---
IMM completed with pt on 09/14/2020 @ 4536. Pt given copy of rights.
[2020-09-14 11:26] LABS: Glucose Point of Care 211 mg/dL (70-110)
--- NOTE | 2020-09-14 12:25 | P.PN_ITS ---
Subjective Subjective: Interval history: No new complaints today. Continues to feel subjectively improved. Urine output 2.1 L. Continues to be tachycardic between 100 to 120 bpm. Transition from IV Lasix to p.o. torsemide today. Medications: Reviewed: Yes Vitals/I&O/Wt Last Vital Signs Temp 97.8 F 09/14/20 11:13 Pulse 122 H 09/14/20 11:13 Resp 22 H 09/14/20 11:13 BP 91/72 09/14/20 11:13 Pulse Ox 96 09/14/20 11:13 09/13/20 09/14/20 09/14/20 22:59 06:59 14:59 Intake Total 480 / 1330 500 / 1830 600 / 600 Output Total 1300 / 1300 800 / 2100 Balance -820 / 30 -300 / -270 600 / 600 Weight last 48 hrs Weight 102.467 kg Weight 103.419 kg Physical Exam Narrative: EXAM NARRATIVE: GEN: Awake, alert and oriented, no acute distress CVS: S1S2 N RS: CTA B/L except few scattered crackles at lung bases. Abd: Soft, nt/nd , bs+ LEGAL EXECUTIVE: no focal neuro deficits Extremities 3+ pitting edema, though appears improved compared to yesterday. Urinary Catheter Management^: Slater: Cath Placed During This Visit: yes Reason for Continuing Indwelling Catheter: Acute Urinary Retention or Obstruction Urinary Catheter Date of Insertion: 09/10/20 Urinary Catheter Time of Insertion: 15:36 Data : 09/14/20 04:05 09/14/20 04:05 Micro: Microbiology 09/12/20 15:15 Gram Stain - Final Pleural Fluid A&P Assessment and plan (1) Hypoxia: Status: Acute (2) CHF (congestive heart failure): Status: Acute Qualifiers: Heart failure type: systolic Heart failure chronicity: acute on chronic Qualified Code(s): I50.23 - Acute on chronic systolic (congestive) heart failure (3) Atrial fibrillation: Status: Acute Qualifiers: Atrial fibrillation type: unspecified Qualified Code(s): I48.91 - Unspecified atrial fibrillation (4) Elevated d-dimer: Status: Acute (5) SANDY (acute kidney injury): Status: Acute (6) CKD (chronic kidney disease) stage 4, GFR 15-29 ml/min: Status: Acute (7) Diabetes: Status: Acute Qualifiers: Diabetes mellitus type: type 2 Diabetes mellitus custodial insulin use: without superintendent marine oil terminal use Diabetes mellitus complication status: with kidney complications Diabetes mellitus complication detail: with chronic kidney disease Chronic kidney disease stage: unspecified stage Qualified Code(s): E11.22 - Type 2 diabetes mellitus with diabetic chronic kidney disease (8) H/O tricuspid valve annuloplasty: Status: Acute (9) Status post mitral valve annuloplasty: Status: Acute (10) Pacemaker: Status: Acute (11) Pleural effusion: Status: Acute Additional A&P Information 65 year old female with CHF, AFib s/p MAZE procedure, on chronic anticoagulation with Xarelto, MVR, status post PPM, diabetes admitted on September 07 with chief complaints of progressive shortness of breath, hypoxic respiratory failure, tac hypnea and weight gain, together with acute kidney injury with creatinine of 2.8 superimposed on CKD. Upon evaluation found to have large right-sided pleural effusion. #Hypoxic respiratory failure This is likely to be multifactorial related to acute on chronic CHF exacerbation. Patient has a significant amount of pulmonary hypertension which is also likely contributing. Patient had a large right-sided pleural effusion which is now status post thoracentesis by IR on 09/12/20. After the thora centesis she does report improvement in her respiratory status. D-dimer elevated on admission, however for SANDY were also unable to perform a contrast CT chest. Low probability overall since patient is on Xarelto. VQ scan was performed which returned with low probability of PE. Negative Covid PCR on 09/07. Negative influenza antigen. Home 02 eval prior to discharge #Acute on chronic CHF: Last known EF is 45%. Currently undergoing diuresis with IV Lasix 80 mg every 12 hours. Patient has had a good response to diuretics. She was switched to oral torsemide and metolazone now. #A. fib with RVR: Continues to have heart rate between 100-1 20s. Metoprolol currently at 12.5 mg p.o. twice daily, dose escalation remains limited by her relative hypotension. Also currently on amiodarone. Digoxin has been given today. Appreciate cardiology recommendations for the same. Continue Xarelto 15 mg p.o. daily. #SANDY on CKD, likely related to renal vascular congestion. Appreciate nephrology recommendations. Creatinine now trending down to baseline. Spironolactone currently on hold. #Large right-sided pleural effusion, status post thoracentesis on 1012. Transudative effusion per pleural fluid analysis. #Treated for possible UTI with levofloxacin. Initially on presentation also concern for pneumonia, however this remains less likely. Patient has received a course of Levaquin 09/07-09/09. urine cx with echevarria-S Klebsiella oxytoca. #Diabetes mellitus currently on insulin sliding scale. Fingersticks are currently well controlled. Encourage PT OT ambulation Disposition: Home with home health Full code DVT prophylaxis Xarelto Attestations Medical Necessity Statement*: optmization of diuretics prior to discharge, transitioined from iv to po, monitor respiratory status Coding Level of Care Code Acute Camp Dining Room Attendant for g Fwd Diagnoses Hypoxia R09.02 CHF (congestive heart failure) I50.23 Heart failure type: systolic Heart failure chronicity: acute on chronic Atrial fibrillation I48.91 Atrial fibrillation type: unspecified Elevated d-dimer R79.89 SANDY (acute kidney injury) N17.9 CKD (chronic kidney disease) stage 4, GFR 15-29 ml/min N18.4 Diabetes E11.22 Diabetes mellitus type: type 2 Diabetes mellitus custodial insulin use: without superintendent marine oil terminal use Diabetes mellitus complication status: with kidney complications Diabetes mellitus complication detail: with chronic kidney disease Chronic kidney disease stage: unspecified stage H/O tricuspid valve annuloplasty Z98.890 Status post mitral valve annuloplasty Z98.890 Pacemaker Z95.0 Pleural effusion J90
--- NOTE | 2020-09-14 12:36 | PM.PN ---
Subjective Subjective: Interval history: She was switched to torsemide this morning. She feels well and wants to go home. Medications: Reviewed: Yes Medication Review Details: Current Medications Acetaminophen (Tylenol) 650 mg PO Q6H PRN PRN Reason: Mild/Mod Pain Or Temp >/= 101 Amiodarone HCl (Cordarone) 400 mg PO BID [facility] Last Admin: 09/14/20 08:49 Dose: 400 mg Documented by: Atorvastatin Calcium (Lipitor) 20 mg PO BEDTIME [facility] Last Admin: 09/13/20 20:06 Dose: 20 mg Documented by: Dextrose (D50w) 25 ml IVP ONCE PRN; Protocol PRN Reason: hypoglycemia protocol Dextrose (D50w) 50 ml IVP PRN PRN; Protocol PRN Reason: hypoglycemia protocol Digoxin (Lanoxin) 250 mcg IVP NOW ONE Stop: 09/14/20 12:35 Docusate Sodium (Colace) 200 mg PO BEDTIME [facility] Last Admin: 09/13/20 20:06 Dose: 200 mg Documented by: Glucagon (Glucagen) 1 mg IM ONCE PRN; Protocol PRN Reason: Adult Acute Hypoglycemia Prot. Dextrose (D5w) 500 mls @ 100 mls/hr IV ONCE PRN; Protocol PRN Reason: Adult Acute Hypoglycemia Prot Insulin Aspart (Novolog) 0 unit SUBCUT WM&BEDTIME [facility]; Protocol Last Admin: 09/14/20 11:52 Dose: 4 unit Documented by: Metolazone (Zaroxolyn) 5 mg PO 0800 [facility] Last Admin: 09/14/20 08:12 Dose: 5 mg Documented by: Metoprolol Tartrate (Metoprolol Tartrate) 5 mg IV Q4H PRN PRN Reason: tachycardia Last Admin: 09/13/20 17:32 Dose: 5 mg Documented by: Metoprolol Tartrate (Lopressor) 12.5 mg PO BID [facility] Last Admin: 09/14/20 08:50 Dose: 12.5 mg Documented by: Ondansetron HCl (Zofran) 4 mg IVP Q6H PRN PRN Reason: NAUSEA AND VOMITING Potassium Chloride (Klor-Con 10) 40 meq PO BID [facility] Last Admin: 09/14/20 08:49 Dose: 40 meq Documented by: Rivaroxaban (Xarelto) 15 mg PO DAILY [facility] Last Admin: 09/14/20 08:49 Dose: 15 mg Documented by: Torsemide (Demadex) 100 mg PO 0800 [facility] Last Admin: 09/14/20 08:49 Dose: 100 mg Documented by: Trazodone HCl (Desyrel) 100 mg PO BEDTIME [facility] Last Admin: 09/13/20 20:06 Dose: 100 mg Documented by: Vitals/I&O/Wt Last Vital Signs Temp 97.8 F 09/14/20 11:13 Pulse 122 H 09/14/20 11:13 Resp 22 H 09/14/20 11:13 BP 91/72 09/14/20 11:13 Pulse Ox 96 09/14/20 11:13 09/13/20 09/14/20 09/14/20 22:59 06:59 14:59 Intake Total 480 / 1330 500 / 1830 600 / 600 Output Total 1300 / 1300 800 / 2100 Balance -820 / 30 -300 / -270 600 / 600 Weight last 48 hrs Weight 225 lb 14.4 oz Weight 228 lb Physical Exam Narrative: EXAM NARRATIVE: Gen: NAD, obese, laying down propped up in the bed HEENT: PERRL, No pallor or icterus Neck: No thyromegaly, JVD RS: Improved air entry in right mid to basal lung field. decreased at bases. No wheezing, rales or rhonchi PA: soft, obese, no abdominal wall edema, NT. BS 2+ CVS: S1, S2 of variable intensity, irregular, Grade 2/6 LLSB murmur + TOLL LINE INSPECTOR: AAOx 3, No FND Ext: No cyanosis, 3+ edema in bilateral lower extremity extending upto the thighs Skin: Bilateral leg erythema, no rashes. Urinary Catheter Management^: Slater: Cath Placed During This Visit: yes Reason for Continuing Indwelling Catheter: Acute Urinary Retention or Obstruction Urinary Catheter Date of Insertion: 09/10/20 Urinary Catheter Time of Insertion: 15:36 Data : 09/14/20 04:05 09/14/20 04:05 Micro: Microbiology 09/12/20 15:15 Gram Stain - Final Pleural Fluid A&P Assessment and plan (1) CHF (congestive heart failure): Mildly decreased left ventricular systolic function and right ventricular failure. -strict input output charting and daily weight. -She appears volume overloaded clinically with 3+ lower extremity edema extending up to her thighs -Her dry weight is ~195 pounds and she is weighing 225 pounds here in the hospital today. -currently on metolazone 5 mg daily and torsemide 100 mg daily -She has a indwelling Slater catheter now. Status: Acute (2) SANDY (acute kidney injury): SANDY on CKD stage IV, likely in setting of renal vascular congestion -renal function improved somewhat this morning. Cr 2.4--2.2; BUN 67--68. -diuresing slowly. -Nephrology on board Status: Acute (3) Atrial fibrillation: She is currently tachycardic. -Start on metoprolol 5 mg IV PRN and 400 bid amiodarone -Heart rate has been running 110-120s. -Continue metoprolol tartrate 12.5 mg twice a day and Xarelto 15 mg. -Start on digoxin 250 mcg IV x1 Status: Acute (4) Status post mitral valve annuloplasty: Status: Acute (5) H/O tricuspid valve annuloplasty: Status: Acute (6) Pacemaker: Status: Acute (7) Diabetes: Status: Acute Qualifiers: Diabetes mellitus type: type 2 Diabetes mellitus spa experience coordinator insulin use: without intermediate use Diabetes mellitus complication status: with kidney complications Additional A&P Information Hypotension: BP has been soft; we might have to give her albumin if need be. No iv fluids today. Moderate sized right pleural effusion-s/p 1 L transudative effusion removal Possible right lower lobe pneumonia : On antibiotics as per primary team. Elevated d-dimer : Low probability of PE on VQ scan Anemia Klebsiella UTI HYpokalemia Throbocytopenia Thank you for allowing me to participate in patient's care. Please feel free to call with questions or concerns. Attestations Medical Necessity Statement*: Needs hospital stay for medication optimization for congestive heart failure and atrial fibrillation Coding Level of Care Code Acute Automation Application Engineer for [facility] Fwd Diagnoses CHF (congestive heart failure) I50.9 SANDY (acute kidney injury) N17.9 Atrial fibrillation I48.91 Status post mitral valve annuloplasty Z98.890 H/O tricuspid valve annuloplasty Z98.890 Pacemaker Z95.0 Diabetes E11.9 Diabetes mellitus type: type 2 Diabetes mellitus intermediate insulin use: without spa experience coordinator use Diabetes mellitus complication status: with kidney complications
[2020-09-14] MEDS: digoxin 250 mcg/ml INJ 2 mL IVP ×2 (13:25→21:02)
[2020-09-14 16:52] LABS: Glucose Point of Care 202 mg/dL (70-110)
[2020-09-14 20:52] LABS: Glucose Point of Care 241 mg/dL (70-110)
--- NOTE | 2020-09-14 20:59 | PC.NURSE ---
Dr. Prabhakar notified of patient asking for Dulcolax, stating that is what she takes at home and stating the Colace isn't helping her.
[2020-09-14] MEDS: docusate sodium 100 mg Capsule 200 MG PO (21:01)
[2020-09-14] MEDS: atorvastatin 40 mg Tablet 20 MG PO (21:01)
[2020-09-14] MEDS: trazodone 100 mg Tablet PO (21:02)
--- NOTE | 2020-09-14 21:21 | PC.NURSE ---
Patient was offered to be turned on her side and stated she wants to stay lying on her back at this time.
[2020-09-14] MEDS: sennosides-docusate Tablet 1 TAB PO (22:20)
[2020-09-15] VITALS (8 sets, daily range): BP systolic 101–116; BP diastolic 62–82; PULSE 72–88; RESP 18–35; TEMP 36.3–36.8; O2SAT 92–99
[2020-09-15 00:47] LABS: Glucose Point of Care 170 mg/dL (70-110)
[2020-09-15 05:43] LABS: Basophils % 0.3 %; Eosinophils # 0.4 10^3/uL (0.0-0.8); Eosinophils % 5.8 %; Hematocrit 31.3 % (37.0-47.0); Hemoglobin 9.6 g/dL (11.5-15.3); Lymphocytes # 0.6 10^3/uL (0.8-4.8); Lymphocytes % 9.8 %; Mean Corpuscular HGB Conc 30.7 g/dL (30.0-36.0); Mean Corpuscular Hemoglobin 24.7 pg (28.0-34.0); Mean Corpuscular Volume 80.7 fL (81-99); Mean Platelet Volume 12.8 fL (7.4-10.4); Monocytes # 0.6 10^3/uL (0.2-0.9); Neutrophils # 4.38 10^3/uL (1.8-7.7); Neutrophils % 73.3 %; Nucleated Red Blood Cells % 0 %; Platelet Count 92 10^3/cmm (130-400); Red Blood Count 3.88 10^6/uL (4.1-5.3); Red Cell Distribution Width 15.6 % (12.1-15.1)
[2020-09-15 05:57] LABS: Alanine Aminotransferase < 5 U/L (0-33); Albumin Level 3.5 g/dL (3.5-5.2); Alkaline Phosphatase 61 IU/L (35-105); Anion Gap 15.1 (5-19); Aspartate Amino Transferase 10 U/L (0-32); Blood Urea Nitrogen 70 mg/dL (8-23); Calcium 9.2 mg/dL (8.5-10.5); Carbon Dioxide 28 mmol/L (22-29); Chloride 92 mmol/L (98-107); Globulin 2.6 g/dL (1.3-4.6); Glucose 158 mg/dL (65-115); Osmolality Calculated 298 mOsm/kg (285-295); Potassium 3.1 mmol/L (3.5-5.1); Sodium 132 mmol/L (136-145); Total Bilirubin 0.9 mg/dL (0.15-1.2); Total Protein 6.1 g/dL (6.6-8.7)
[2020-09-15 06:12] LABS: Glucose Point of Care 163 mg/dL (70-110)
[2020-09-15 06:44] LABS: Slide Review Slide Review Perform
[2020-09-15 07:58] LABS: Magnesium 2.1 mg/dL (1.7-2.3)
[2020-09-15] MEDS: metOLazone 5 MG Tablet PO (07:59)
[2020-09-15] MEDS: lidocaine 1% 5 ML in potassium chloride premix 100 ML 25 ML IV (08:37)
[2020-09-15] MEDS: rivaroxaban 10 mg Tablet 15 MG PO (08:40)
[2020-09-15] MEDS: TORSEmide 20 mg Tablet 100 MG PO (08:40)
[2020-09-15] MEDS: potassium chloride ER 10 mEq Tablet 40 MEQ PO ×3 (08:40→17:11)
[2020-09-15] MEDS: metoprolol tartrate 25 mg Tablet 12.5 MG PO ×2 (08:41→17:11)
[2020-09-15] MEDS: amiodarone 200 mg Tablet 400 MG PO (08:41)
[2020-09-15] MEDS: polyethylene glycol 3350 Pkt 17 gm PO (08:44)
--- NOTE | 2020-09-15 10:47 | PM.PN ---
Subjective Subjective: Interval history: Feels much better today. Keen to go home, she still has significant LE edema. Breathing normally, no SPENCER/SOB. No uremic Sx. No other new acute issues Feels well Medications: Reviewed: Yes Medication Review Details: Current Medications Acetaminophen (Tylenol) 650 mg PO Q6H PRN PRN Reason: Mild/Mod Pain Or Temp >/= 101 Amiodarone HCl (Cordarone) 400 mg PO BID [facility] Last Admin: 09/14/20 08:49 Dose: 400 mg Documented by: Atorvastatin Calcium (Lipitor) 20 mg PO BEDTIME [facility] Last Admin: 09/13/20 20:06 Dose: 20 mg Documented by: Dextrose (D50w) 25 ml IVP ONCE PRN; Protocol PRN Reason: hypoglycemia protocol Dextrose (D50w) 50 ml IVP PRN PRN; Protocol PRN Reason: hypoglycemia protocol Digoxin (Lanoxin) 250 mcg IVP NOW ONE Stop: 09/14/20 12:35 Docusate Sodium (Colace) 200 mg PO BEDTIME [facility] Last Admin: 09/13/20 20:06 Dose: 200 mg Documented by: Glucagon (Glucagen) 1 mg IM ONCE PRN; Protocol PRN Reason: Adult Acute Hypoglycemia Prot. Dextrose (D5w) 500 mls @ 100 mls/hr IV ONCE PRN; Protocol PRN Reason: Adult Acute Hypoglycemia Prot Insulin Aspart (Novolog) 0 unit SUBCUT WM&BEDTIME [facility]; Protocol Last Admin: 09/14/20 11:52 Dose: 4 unit Documented by: Metolazone (Zaroxolyn) 5 mg PO 0800 [facility] Last Admin: 09/14/20 08:12 Dose: 5 mg Documented by: Metoprolol Tartrate (Metoprolol Tartrate) 5 mg IV Q4H PRN PRN Reason: tachycardia Last Admin: 09/13/20 17:32 Dose: 5 mg Documented by: Metoprolol Tartrate (Lopressor) 12.5 mg PO BID [facility] Last Admin: 09/14/20 08:50 Dose: 12.5 mg Documented by: Ondansetron HCl (Zofran) 4 mg IVP Q6H PRN PRN Reason: NAUSEA AND VOMITING Potassium Chloride (Klor-Con 10) 40 meq PO BID [facility] Last Admin: 09/14/20 08:49 Dose: 40 meq Documented by: Rivaroxaban (Xarelto) 15 mg PO DAILY [facility] Last Admin: 09/14/20 08:49 Dose: 15 mg Documented by: Torsemide (Demadex) 100 mg PO 0800 [facility] Last Admin: 09/14/20 08:49 Dose: 100 mg Documented by: Trazodone HCl (Desyrel) 100 mg PO BEDTIME [facility] Last Admin: 09/13/20 20:06 Dose: 100 mg Documented by: Vitals/I&O/Wt Last Vital Signs Temp 97.3 F L 09/15/20 08:00 Pulse 88 09/15/20 08:00 Resp 35 H 09/15/20 08:00 BP 111/63 09/15/20 08:00 Pulse Ox 99 09/15/20 08:00 09/14/20 09/15/20 09/15/20 22:59 06:59 14:59 Intake Total 240 / 1560 700 / 2260 240 / 240 Output Total 550 / 1550 1200 / 2750 Balance -310 / 10 -500 / -490 240 / 240 Weight last 48 hrs Weight 102.104 kg Weight 102.467 kg Physical Exam Const: COMMON NORMALS: no acute distress Chest: COMMONS NORMALS: normal inspection of the chest and normal palpation of entire chest wall CHEST: Yes abnormal inspection of the chest and Yes Symmetrical chest wall rise Resp: COMMON NORMALS: normal respiratory effort EFFORT & INSPECTION: Yes able to speak in complete sentences and Yes decreased respiratory effort AUSCULTATION: diminished lung sounds Cardio: RHYTHM: abnormal rhythm GI: COMMON NORMALS: Normal to inspection, nondistended, normoactive bowel sounds present Urinary Catheter Management^: Slater: Cath Placed During This Visit: yes Reason for Continuing Indwelling Catheter: Acute Urinary Retention or Obstruction Urinary Catheter Date of Insertion: 09/10/20 Urinary Catheter Time of Insertion: 15:36 Data : 09/15/20 04:15 09/15/20 04:15 Micro: Microbiology 09/12/20 15:15 Gram Stain - Final Pleural Fluid Body Fluid Culture - Preliminary A&P Additional A&P Information 1. SANDY - creatinine remains stable and good diuretic response - likely to be hemodynamically mediated ie cardiorenal syndrome type 1. - passive renal congestion possible given high right sided pressures - switch metolazone for Spironolactone 25mg po BID, cont Torsemide; this is to preserve K - am labs - avoid the usuals - Strict Is and Os 2. hyponatremia and hypoK - switch metolazone for Spironolactone 25mg po BID, cont Torsemide; this is to preserve K 3. Afib, RVR, heart failure - rate still high, mgmt per Dr Pavon 4. UTI on Levaquin 5. OOB to chair, PT/OT 6. S/p Thoracentesis 09/12 - ok for DC today. Outpatient labs next week, follow up with [facility] within 2 weeks time Thanks for consultation, will follow closely with the team Attestations Medical Necessity Statement*: eval for SANDY Coding Level of Care Code Acute Wellness Coordinator for Braeden Kuhn
[2020-09-15 11:33] LABS: Glucose Point of Care 205 mg/dL (70-110)
--- NOTE | 2020-09-15 13:20 | PM.DCS ---
Discharge Providers Date of Admission: 09/07/20 16:16 Date of Discharge: September 15, 2020 Attending Provider at Admission: Elmer Oropeza Attending Provider at Discharge: Alia Villalobos MD Primary Care Provider: Heather Núñez MD Diagnoses at Discharge Discharge Diagnosis (1) Hypoxia: Status: Acute (2) CHF (congestive heart failure): Status: Acute Qualifiers: Heart failure chronicity: acute on chronic Heart failure type: systolic Qualified Code(s): I50.23 - Acute on chronic systolic (congestive) heart failure (3) Atrial fibrillation: Status: Acute Qualifiers: Atrial fibrillation type: unspecified Qualified Code(s): I48.91 - Unspecified atrial fibrillation (4) Elevated d-dimer: Status: Acute (5) SANDY (acute kidney injury): Status: Acute (6) CKD (chronic kidney disease) stage 4, GFR 15-29 ml/min: Status: Acute (7) Diabetes: Status: Acute Qualifiers: Chronic kidney disease stage: unspecified stage Diabetes mellitus complication detail: with chronic kidney disease Diabetes mellitus complication status: with kidney complications Diabetes mellitus mcc insulin use: without manager intermediate use Diabetes mellitus type: type 2 Qualified Code(s): E11.22 - Type 2 diabetes mellitus with diabetic chronic kidney disease (8) H/O tricuspid valve annuloplasty: Status: Acute (9) Status post mitral valve annuloplasty: Status: Acute (10) Pacemaker: Status: Acute (11) Pleural effusion: Status: Acute Reason for Visit Reason for Visit: DIFF BREATHING, HYPOGLYCEMIA Hospital Course Discharge Summary: 65 year old female with CHF, AFib s/p MAZE procedure, on chronic anticoagulation with Xarelto, MVR, status post PPM, diabetes admitted on September 07 with chief complaints of progressive shortness of breath, hypoxic respiratory failure, tachypnea and weight gain, together with acute kidney injury with creatinine of 2.8 superimposed on CKD. Upon evaluation found to have large right-sided pleural effusion. Hospital course as below. #Hypoxic respiratory failure This is likely to be multifactorial related to acute on chronic CHF exacerbation. Patient has a significant amount of pulmonary hypertension which is also likely contributing. Patient had a large right-sided pleural effusion which is now status post thoracentesis by IR on 09/12/20. After the thoracentesis she does report improvement in her respiratory status. D-dimer elevated on admission, however for SANDY were also unable to perform a contrast CT chest. Low probability overall since patient is on Xarelto. VQ scan was performed which returned with low probability of PE. Negative Covid PCR on 09/07. Negative influenza antigen. Currently at baseline oxygen requirement of 1 to 2 L/min. #Acute on chronic CHF: Last known EF is 45%. Underwent diuresis with IV Lasix switched to oral torsemide. #A. fib with RVR: Continues to have heart rate between 100-1 20s. Metoprolol currently at 12.5 mg p.o. twice daily, dose escalation remains limited by her relative hypotension. Also currently on amiodarone. Heart rate much better controlled today in the 90s. Appreciate cardiology recommendations for the same. Continue Xarelto 15 mg p.o. daily. #SANDY on CKD, likely related to renal vascular congestion. Appreciate nephrology recommendations. Creatinine now trending down to baseline. Spironolactone resumed at discharge #Large right-sided pleural effusion, status post thoracentesis on 1011. Transudative effusion per pleural fluid analysis. #Treated for possible UTI with levofloxacin. Initially on presentation also concern for pneumonia, however this remains less likely. Patient has received a course of Levaquin 09/07-09/09. urine cx with echevarria-S Klebsiella oxytoca. Patient overall feels improved since admission, eager to return home today. Physical Exam Narrative: EXAM NARRATIVE: GEN: Awake, alert and oriented, no acute distress CVS: S1S2 N RS: CTA B/L Abd: Soft, nt/nd , bs+ SLAT GRADER: no focal neuro deficits Extremity bilateral lower extremity pitting edema, however improved since admission. Urinary Catheter Management^: Slater: Cath Placed During This Visit: yes Reason for Continuing Indwelling Catheter: Acute Urinary Retention or Obstruction Urinary Catheter Date of Insertion: 09/10/20 Urinary Catheter Time of Insertion: 15:36 Discharge Data Data Completed and Pending: Completed Studies During Hospitalization Category Date Time Status XR chest 1V merlin ble [id number] Routine Exams 09/10/20 06:00 Completed XR chest 1V merlin ble [id number] Stat Exams 09/07/20 13:28 Completed XR chest 1V merlin ble [id number] Stat Exams 09/12/20 14:55 Completed NM pulmonary vent ilation and perfus ion [NM pul vent a nd Nuc Med 09/09/20 08:00 Completed perfus* [id number]] Ro utine CV echo limited 9 3308 Routine Ultrasound 09/10/20 14:33 Completed US thoracentesis [id number] Routine Ultrasound 09/12/20 10:03 Completed Pending at discharge Category Date Time Status Body Fluid Cultur e & GS Routine Lab 09/12/20 15:15 Results Sputum Culture an d Gram Stain Stat Lab 09/07/20 13:28 Uncollected Labs from last 24 hours 09/15/20 09/15/20 09/15/20 11:08 05:57 04:15 WBC RBC Hgb Hct MCV MCH MCHC RDW Plt Count MPV Neut % (Auto) Lymph % (Auto) [place] % (Auto) Eos % (Auto) Baso % (Auto) Neut # (Auto) Lymph # (Auto) [place] # (Auto) Eos # (Auto) Baso # (Auto) Nucleated RBC % (a uto) Nucleated RBCs # Sodium Potassium Chloride Carbon Dioxide Anion Gap BUN Creatinine GFR Calculation Glucose POC Glucose 205 163 Calculated Osmolal ity Calcium Magnesium 2.1 Total Bilirubin AST ALT Alkaline Phosphata se Total Protein Albumin Globulin 09/15/20 09/15/20 09/15/20 04:15 04:15 00:43 WBC 6.0 RBC 3.88 L Hgb 9.6 L Hct 31.3 L MCV 80.7 L MCH 24.7 L MCHC 30.7 RDW 15.6 H Plt Count 92 L MPV 12.8 H Neut % (Auto) 73.3 Lymph % (Auto) 9.8 [place] % (Auto) 10.0 Eos % (Auto) 5.8 Baso % (Auto) 0.3 Neut # (Auto) 4.38 Lymph # (Auto) 0.6 L [place] # (Auto) 0.6 Eos # (Auto) 0.4 Baso # (Auto) 0.0 Nucleated RBC % (a uto) 0 Nucleated RBCs # 0.0 Sodium 132 L Potassium 3.1 L Chloride 92 L Carbon Dioxide 28 Anion Gap 15.1 BUN 70 H Creatinine 2.0 H GFR Calculation 25.0 L Glucose 158 H POC Glucose 170 Calculated Osmolal ity 298 H Calcium 9.2 Magnesium Total Bilirubin 0.9 AST 10 ALT < 5 Alkaline Phosphata se 61 Total Protein 6.1 L Albumin 3.5 Globulin 2.6 09/14/20 09/14/20 20:50 16:45 WBC RBC Hgb Hct MCV MCH MCHC RDW Plt Count MPV Neut % (Auto) Lymph % (Auto) [place] % (Auto) Eos % (Auto) Baso % (Auto) Neut # (Auto) Lymph # (Auto) [place] # (Auto) Eos # (Auto) Baso # (Auto) Nucleated RBC % (a uto) Nucleated RBCs # Sodium Potassium Chloride Carbon Dioxide Anion Gap BUN Creatinine GFR Calculation Glucose POC Glucose 241 202 Calculated Osmolal ity Calcium Magnesium Total Bilirubin AST ALT Alkaline Phosphata se Total Protein Albumin Globulin Vitals: Last Vital Signs Temp 98.0 F 09/15/20 12:00 Pulse 82 09/15/20 12:00 Resp 26 H 09/15/20 12:00 BP 101/66 09/15/20 12:00 Pulse Ox 99 09/15/20 12:00 Discharge Plan Discharge Patient Disposition: Home Condition: Stable Prescriptions: New potassium chloride 10 mEq Tablet Extended Release 40 meq PO TID 15 Days Qty: 45 RF: 0 Xarelto 10 mg Tablet 15 mg PO DAILY 30 Days Qty: 45 RF: 0 torsemide 20 mg Tablet 100 mg PO 0800 30 Days Qty: 30 RF: 0 spironolactone 25 mg Tablet 25 mg PO BID 30 Days Qty: 60 RF: 0 digoxin 125 mcg (0.125 mg) Tablet 125 mcg PO DAILY 30 Days Qty: 30 RF: 0 amiodarone [Pacerone] 200 mg Tablet 200 mg PO DAILY 30 Days Qty: 30 RF: 0 metoprolol tartrate 25 mg Tablet 25 mg PO BID Qty: 60 RF: 0 Continued escitalopram oxalate 10 mg tablet 20 mg PO DAILY RF: 0 simvastatin 10 mg tablet 10 mg PO DAILY Qty: 30 RF: 6 trazodone 100 mg Tablet 100 mg PO BEDTIME RF: 0 Refresh Tears See Rx Instructions .ROUTE .COMPLEX RF: 0 Systane (PF) See Rx Instructions .ROUTE .COMPLEX RF: 0 Changed Levemir FlexTouch U-100 Insuln 100 unit/mL (3 mL) insulin pen 10 unit SUBCUT QAM Qty: 0 RF: 0 potassium chloride 10 mEq capsule, extended release 40 meq PO TID Qty: 0 RF: 0 Held glipizide 10 mg tablet extended release 24hr 20 mg PO DAILY RF: 0 Hold Instructions: Resume on 09/21/20. hold until follow up with PCP Discontinued metoprolol tartrate 100 mg tablet 100 mg PO BID RF: 0 torsemide 20 mg tablet 20 mg PO QPM RF: 0 torsemide 100 mg tablet 100 mg PO DAILY RF: 0 diltiazem HCl [Cardizem CD] 240 mg capsule,extended release 24hr 240 mg PO DAILY Qty: 30 RF: 0 metolazone 5 mg tablet 5 mg PO DAILY RF: 0 spironolactone 25 mg tablet 25 mg PO DAILY Qty: 30 RF: 0 Xarelto 20 mg tablet 20 mg PO DAILY Qty: 90 RF: 3 Discharge Orders: Discharge Order (Routine); Ordered 09/15/20 Ordered By: Alia Villalobos Referrals: Heather Núñez MD [Primary Care Provider] - 4-7 days (You have a hospital followup with Dr. Núñez at [facility] on , September 22 at 10:30am) Hellen Pavon MD [Physician] - 4-7 days Patient Instructions: Metoprolol (By mouth), Spironolactone (By mouth), Digoxin (By mouth), Amiodarone (By mouth), Rivaroxaban (By mouth) Discharge Attestations Time Spent in Discharge Care*: greater than 30 min Quality Metrics Clinical Quality Measures During this hospital stay, did patient experience: None Coding Level of Care Code Acute Vice President Of Brand Management for Chg Fwd Diagnoses Hypoxia R09.02 CHF (congestive heart failure) I50.23 Heart failure chronicity: acute on chronic Heart failure type: systolic Atrial fibrillation I48.91 Atrial fibrillation type: unspecified Elevated d-dimer R79.89 SANDY (acute kidney injury) N17.9 CKD (chronic kidney disease) stage 4, GFR 15-29 ml/min N18.4 Diabetes E11.22 Chronic kidney disease stage: unspecified stage Diabetes mellitus complication detail: with chronic kidney disease Diabetes mellitus complication status: with kidney complications Diabetes mellitus manager intermediate insulin use: without mcc use Diabetes mellitus type: type 2 H/O tricuspid valve annuloplasty Z98.890 Status post mitral valve annuloplasty Z98.890 Pacemaker Z95.0 Pleural effusion J90
--- NOTE | 2020-09-15 13:27 | PM.PN ---
Subjective Subjective: Interval history: Patient denies any new complaints. She was sitting in chair comfortably at the time of exam. She wants to go home. Medications: Reviewed: Yes Medication Review Details: Current Medications Acetaminophen (Tylenol) 650 mg PO Q6H PRN PRN Reason: Mild/Mod Pain Or Temp >/= 101 Amiodarone HCl (Cordarone) 400 mg PO BID [facility] Last Admin: 09/15/20 08:41 Dose: 400 mg Documented by: Atorvastatin Calcium (Lipitor) 20 mg PO BEDTIME [facility] Last Admin: 09/14/20 21:01 Dose: 20 mg Documented by: Dextrose (D50w) 25 ml IVP ONCE PRN; Protocol PRN Reason: hypoglycemia protocol Dextrose (D50w) 50 ml IVP PRN PRN; Protocol PRN Reason: hypoglycemia protocol Docusate Sodium (Colace) 200 mg PO BEDTIME [facility] Last Admin: 09/14/20 21:01 Dose: 200 mg Documented by: Glucagon (Glucagen) 1 mg IM ONCE PRN; Protocol PRN Reason: Adult Acute Hypoglycemia Prot. Dextrose (D5w) 500 mls @ 100 mls/hr IV ONCE PRN; Protocol PRN Reason: Adult Acute Hypoglycemia Prot Lidocaine HCl 5 ml/ Potassium (Chloride) 105 mls @ 25 mls/hr IV Q4H [facility] Stop: 09/15/20 15:59 Last Admin: 09/15/20 08:37 Dose: 25 mls/hr Documented by: Insulin Aspart (Novolog) 0 unit SUBCUT WM&BEDTIME [facility]; Protocol Last Admin: 09/15/20 12:40 Dose: 4 unit Documented by: Metoprolol Tartrate (Metoprolol Tartrate) 5 mg IV Q4H PRN PRN Reason: tachycardia Last Admin: 09/13/20 17:32 Dose: 5 mg Documented by: Metoprolol Tartrate (Lopressor) 12.5 mg PO BID [facility] Last Admin: 09/15/20 08:41 Dose: 12.5 mg Documented by: Ondansetron HCl (Zofran) 4 mg IVP Q6H PRN PRN Reason: NAUSEA AND VOMITING Polyethylene Glycol (Miralax) 17 gm PO DAILY [facility] Last Admin: 09/15/20 08:44 Dose: 17 gm Documented by: Potassium Chloride (Klor-Con 10) 40 meq PO BID [facility] Last Admin: 09/15/20 08:40 Dose: 40 meq Documented by: Rivaroxaban (Xarelto) 15 mg PO DAILY [facility] Last Admin: 09/15/20 08:40 Dose: 15 mg Documented by: Senna/Docusate Sodium (Senna-S) 1 tab PO BEDTIME [facility] Last Admin: 09/14/20 22:20 Dose: 1 tab Documented by: Spironolactone (Aldactone) 25 mg PO BID [facility] Torsemide (Demadex) 100 mg PO 0800 [facility] Last Admin: 09/15/20 08:40 Dose: 100 mg Documented by: Trazodone HCl (Desyrel) 100 mg PO BEDTIME [facility] Last Admin: 09/14/20 21:02 Dose: 100 mg Documented by: Vitals/I&O/Wt Last Vital Signs Temp 98.0 F 09/15/20 12:00 Pulse 82 09/15/20 12:00 Resp 26 H 09/15/20 12:00 BP 101/66 09/15/20 12:00 Pulse Ox 99 09/15/20 12:00 09/14/20 09/15/20 09/15/20 22:59 06:59 14:59 Intake Total 240 / 1560 700 / 2260 720 / 720 Output Total 550 / 1550 1200 / 2750 Balance -310 / 10 -500 / -490 720 / 720 Weight last 48 hrs Weight 225 lb 1.6 oz Weight 225 lb 14.4 oz Physical Exam Narrative: EXAM NARRATIVE: Gen: NAD, obese, laying down propped up in the bed HEENT: PERRL, No pallor or icterus Neck: No thyromegaly, JVD RS: Improved air entry in right mid to basal lung field. decreased at bases. No wheezing, rales or rhonchi PA: soft, obese, no abdominal wall edema, NT. BS 2+ CVS: S1, S2 of variable intensity, irregular, Grade 2/6 LLSB murmur + DIVISION HUMAN RESOURCES MANAGER: AAOx 3, No FND Ext: No cyanosis, 3+ edema in bilateral lower extremity extending upto the thighs Skin: Bilateral leg erythema, no rashes. Urinary Catheter Management^: Slater: Cath Placed During This Visit: yes Reason for Continuing Indwelling Catheter: Acute Urinary Retention or Obstruction Urinary Catheter Date of Insertion: 09/10/20 Urinary Catheter Time of Insertion: 15:36 Data : 09/15/20 04:15 09/15/20 04:15 Micro: Microbiology 09/12/20 15:15 Gram Stain - Final Pleural Fluid Body Fluid Culture - Preliminary A&P Assessment and plan (1) CHF (congestive heart failure): Mildly decreased left ventricular systolic function and right ventricular failure. -strict input output charting and daily weight. -She appears volume overloaded clinically with 3+ lower extremity edema extending up to her thighs -Her dry weight is ~195 pounds and she is weighing 225 pounds here in the hospital today. -continue torsemide 100 mg daily. Spironolactone 25 mg twice a day -DC Slater catheter. -She may be able to go home on torsemide 100 mg daily, spironolactone 25 mg twice daily (8 am, 2 pm). -Follow-up with me in 4-7 days, BMP, Mg, Dig level with follow up. Status: Acute Qualifiers: Heart failure type: systolic Heart failure chronicity: acute on chronic Qualified Code(s): I50.23 - Acute on chronic systolic (congestive) heart failure (2) SANDY (acute kidney injury): SANDY on CKD stage IV, likely in setting of renal vascular congestion -renal function improved somewhat this morning. Cr 2.4--2.2-2; BUN 67--68-70. -diuresing slowly. -Nephrology on board Status: Acute (3) Atrial fibrillation: -HR has improved and currently running 80s to 100s. -Continue metoprolol tartrate 25 mg twice a day and Xarelto 15 mg. -Discharge home on digoxin 125 mcg p.o. daily and amiodarone 200 mg daily Status: Acute Qualifiers: Atrial fibrillation type: unspecified Qualified Code(s): I48.91 - Unspecified atrial fibrillation (4) Status post mitral valve annuloplasty: Status: Acute (5) H/O tricuspid valve annuloplasty: Status: Acute (6) Pacemaker: Status: Acute (7) Diabetes: Status: Acute Qualifiers: Diabetes mellitus type: type 2 Diabetes mellitus applied psychology chair insulin use: without jail use Diabetes mellitus complication status: with kidney complications Diabetes mellitus complication detail: with chronic kidney disease Chronic kidney disease stage: unspecified stage Qualified Code(s): E11.22 - Type 2 diabetes mellitus with diabetic chronic kidney disease Additional A&P Information Hypotension: BP has been soft; we might have to give her albumin if need be. No iv fluids today. Moderate sized right pleural effusion-s/p 1 L transudative effusion removal Possible right lower lobe pneumonia : On antibiotics as per primary team. Elevated d-dimer : Low probability of PE on VQ scan Anemia Klebsiella UTI HYpokalemia: Being replaced Hyponatremia Throbocytopenia Thank you for allowing me to participate in patient's care. Please feel free to call with questions or concerns. Attestations Medical Necessity Statement*: Stable to be discharged home. Coding Level of Care Code Acute Tailing Hand for [facility] Fwd Diagnoses CHF (congestive heart failure) I50.23 Heart failure type: systolic Heart failure chronicity: acute on chronic SANDY (acute kidney injury) N17.9 Atrial fibrillation I48.91 Atrial fibrillation type: unspecified Status post mitral valve annuloplasty Z98.890 H/O tricuspid valve annuloplasty Z98.890 Pacemaker Z95.0 Diabetes E11.22 Diabetes mellitus type: type 2 Diabetes mellitus jail insulin use: without jail use Diabetes mellitus complication status: with kidney complications Diabetes mellitus complication detail: with chronic kidney disease Chronic kidney disease stage: unspecified stage
--- NOTE | 2020-09-15 13:45 | PC.NURSE ---
Dr Pavon at on unit for assessment and discussion of plan of care instructions to hold IV potassium and give 40mg PO x1 now and get home o2 evaluation
[2020-09-15 17:14] LABS: Glucose Point of Care 205 mg/dL (70-110)
--- NOTE | 2020-09-15 18:04 | PC.NURSE ---
patient discharge home at this time to be followed by home health Discharge instructions provided and explained in detail patient verbalized understanding of instructions given patient assisted to wheel chair and accompanied to POV by staff patient stable and alert upon departure
== END 2020-09-15 18:00 | disposition home or self-care (01) | DRG 291 ==
LOC: ER 13:14 → MEDSURG 17:18 → CSU 09-11 18:36
PROVIDERS: Internal Medicine Cardiovascular Disease; Internal Medicine Nephrology; Radiology Diagnostic Radiology; Admitting Provider Internal Medicine; Emergency Provider Family Medicine; PCP Family Medicine; Visit Provider Student in an Organized Health Care Education/Training Program
DX: I13.0 Hypertensive heart and chronic kidney disease with heart failure and stage 1 through stage 4 chronic kidney disease, or unspecified chronic kidney disease (principal); I50.23 Acute on chronic systolic (congestive) heart failure; J18.9 Pneumonia, unspecified organism; N18.4 Chronic kidney disease, stage 4 (severe); I48.21 Permanent atrial fibrillation; N17.9 Acute kidney failure, unspecified; N39.0 Urinary tract infection, site not specified; E11.22 Type 2 diabetes mellitus with diabetic chronic kidney disease; Z79.01 Long term (current) use of anticoagulants; E87.5 Hyperkalemia; Z95.0 Presence of cardiac pacemaker; I95.9 Hypotension, unspecified; Z98.890 Other specified postprocedural states; I27.20 Pulmonary hypertension, unspecified; B96.1 Klebsiella pneumoniae [K. pneumoniae] as the cause of diseases classified elsewhere; D69.6 Thrombocytopenia, unspecified
CPT/HCPCS: 12345; 32555; 36415; 36416; 36600; 51702; 71045; 78014; 80048; 80053; 80162; 80500; 81001; 82042; 82550; 82575; 82728; 82803; 82962; 83605; 83615; 83735; 83986; 84145; 84157; 84300; 84443; 84540; 85018; 85025; 85378; 85384; 85610; 86140; 87040; 87070; 87075; 87077; 87086; 87186; 87205; 87426; 87635; 87804; 89050; 93005; 93308; 96372; 96375; 97110; 97116; 97161; 97530; 99284; A9540; A9567; J1160; J1650; J1815; J1940; J1956; J3480; J3490; J7030; J7040; P9041; P9047; Q3014

== ENCOUNTER → 2020-09-21 09:53 | Outpatient (BNVA) | payer MEDICARE, OTHER, SELFPAY | PROVIDERS: PCP Family Medicine; Visit Provider Internal Medicine Cardiovascular Disease | DX: I48.21 Permanent atrial fibrillation; I50.43 Acute on chronic combined systolic (congestive) and diastolic (congestive) heart failure; B36.9 Superficial mycosis, unspecified; Z95.0 Presence of cardiac pacemaker; I10 Essential (primary) hypertension | CPT/HCPCS: 80048; 80162; 83735; 83880; 85025 ==

== ENCOUNTER → 2020-10-05 14:17 | Outpatient (BNVA) | payer MEDICARE, OTHER, SELFPAY | PROVIDERS: PCP Family Medicine; Visit Provider Internal Medicine Cardiovascular Disease | DX: I50.23 Acute on chronic systolic (congestive) heart failure; I11.0 Hypertensive heart disease with heart failure; I48.91 Unspecified atrial fibrillation | CPT/HCPCS: 80048; 80162; 83735; 83880 ==

== ENCOUNTER → 2020-10-12 10:45 | Outpatient (BNVA) | payer MEDICARE, OTHER, SELFPAY | PROVIDERS: PCP Family Medicine; Visit Provider Internal Medicine Cardiovascular Disease | DX: I50.23 Acute on chronic systolic (congestive) heart failure (principal); N18.4 Chronic kidney disease, stage 4 (severe) | CPT/HCPCS: 80053; 80162; 83735; 83880; 85025 ==

== ENCOUNTER 2020-10-28 10:18 | Inpatient (IN) | payer MEDICARE, MEDICAID, SELFPAY ==
[2020-10-28] VITALS (76 sets, daily range): BP systolic 77–100; BP diastolic 43–69; PULSE 40–112; RESP 18–46; TEMP 36–36.6; O2SAT 91–99; BMI 32.8
--- NOTE | 2020-10-28 10:41 | CT_ITS ---
WS: [id number] CT ABDOMEN AND PELVIS NONCONTRAST HISTORY: abd pain, weakness and decreased appetite. Hypotensive. TECHNIQUE: Imaging performed through the abdomen and pelvis. Coronal and sagittal reformats are submi tted. All CT scans at [facility] use at least one of these dose optimization techniques: automated exposure control; mA and/or kV adjustment per patient size (includes targeted exams where d ose is matched to clinical indication); or iterative reconstruction. DLP: 1283.58 mGy.cm COMPARISON: None available. Lower thorax: Small RIGHT pleural effusion. Moderate enlargement of the cardiac chambers and a small pericardial effusion. Small hiatal hernia. Liver: Liver is top normal size. Mild hepatic steatosis. No mass identified. Gallbladder: Prior cholecystectomy. Pancreas: Normal size and attenuation. Normal pancreatic duct. No pancreatitis or mass. Spleen: Spleen is top normal size. Slightly lobulated margins with no mass. Adrenal glands: Mild LEFT adrenal gland hyperplasia with no mass. Right kidney: Normal size kidney with no mass or hydronephrosis. Left kidney: Normal size kidney with no mass or hydronephrosis. Aorta: Mild atherosclerosis abdominal aorta with no aneurysm. There is a small amount of ascites throughout the abdomen and pelvis. No free air identified. GI tract: The appendix is normal size. No GI tract obstruction. No ischemic changes are evident. Abdominal wall: Fat-containing supraumbilical hernia with an orifice of 2.2 cm. There is additional m ild anasarca and edema within the anterior abdominal wall. Pelvis: Moderate amount of free fluid in the pelvis. Osseous structures: Age-indeterminate osteoporotic compression fractures at T12, L2 and L3. CT/CT abdomen pelvis wo con [id number] IMPRESSION: 1. Small RIGHT pleural effusion and small pericardial effusion. 2. Small amount of ascites throughout the abdomen and pelvis with mesenteric a nd subcutaneous edema. 3. Prior cholecystectomy. 4. No ischemia or free air.
--- NOTE | 2020-10-28 10:41 | XR_ITS ---
WS: [id number] PORTABLE CHEST HISTORY: dyspnea/cough COMPARISON: 09/12/2020 Dual lead LEFT subclavian pacer. Prior median sternotomy. Valve replacements are noted. Lungs are clear and well expanded. No pleural effusion or pneumothorax. Cardiac size: Mildly enlarged cardiac silhouette. Mediastinum/Aorta: Mild atherosclerosis aorta. No osseous abnormality seen. XR/XR chest 1V portable [id number] IMPRESSION: 1. No pneumonia. 2. Mild cardiomegaly. 3. Dual lead LEFT subclavian pacer and prior median sternotomy.
--- NOTE | 2020-10-28 10:42 | ECG_ITS ---
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: : 1955 Requested By: Jr Magaña Order Number: [id number] Kevyn MD: SRINIVASAN WHEATLEY Measurements Intervals [place] Rate: 82 P: VA: QRS: 128 QRSD: 134 T: 93 QT: 426 QTc: 498 Interpretive Statements ATRIAL FIBRILLATION RIGHT AXIS DEVIATION [QRS AXIS > 100] RIGHT BUNDLE BRANCH BLOCK [120+ ms QRS DURATION, UPRIGHT V1, 40+ ms S IN I/aVL/V4/V5/V6] Compared to ECG 09/07/2020 16:17:26 Right-axis deviation now present Right bundle-branch block now present Incomplete right bundle-branch block no longer present Myocardial infarct finding no longer present Electronically Signed On 10-28-2020 19:58:48 INVESTIGATOR UTILITY BILL COMPLAINTS by SRINIVASAN WHEATLEY [email or web address]
--- NOTE | 2020-10-28 10:47 | ED_ITS ---
HPI - Weakness General: Chief complaint: Weakness Stated complaint: GENERALIZED WEAKNESS/ HYPOTENSION Time Seen by Provider: 10/28/20 10:31 History of Present Illness: HPI Narrative: 65-year-old female presents to the emergency room with a complaint of generally not feeling well and being weak. She was hospitalized last month with some pretty profound hypoglycemia. Ultimately she was discharged and has been at home. She tells me she is not able to get up get out of bed to go to the restroom or get herself anything to eat or drink she has family members that stop by to help but they are only able to stop by 2 or 3 times a week. She is profoundly weak unable to reposition herself in bed. She denies any pain number no chest pain abdominal pain no dysuria urgency or frequency did find some bruising on her right hip area initial blood sugar when she arrived was 198. She denies fever sweats chills cough or flulike symptoms. MD Complaint: generalized weakness Onset (ago): week(s) Duration: constant Location: generalized Migration: none Severity: severe Relieving factors: none Exacerbating factors: none Context: history of similar Associated symptoms: Reports decreased appetite and myalgias; Denies chest pain, chills, confusion, melena, diaphoresis, dysuria, easy bruising, fever(s), headache(s), nausea, rash, short of breath, syncope or vomiting Review of Systems Const: Denies: fever(s) or diaphoresis ENMT: Denies: throat pain, ear or mastoid pain, nasal discharge or nasal congestion Card: Denies: chest pain or syncope Resp: Denies: dyspnea, productive cough or non-productive cough GI: Denies: nausea, vomiting or melena : Denies: dysuria Skin/Breast: Denies: rash or pruritus Neuro: Denies: headache(s) or confusion Louie/Lymph: Denies: easy bruising PFS ED PFSH: Medical History (Updated 10/28/20 @ 13:38 by Jr Stephens DO) Atrial fibrillation CHF (congestive heart failure) Diabetes HTN (hypertension) Pacemaker Surgical History H/O tricuspid valve annuloplasty S/P cholecystectomy S/P left atrial appendage ligation S/P Maze operation for atrial fibrillation Status post mitral valve annuloplasty Family History Other CAD (coronary artery disease) Diabetes Social History Smoking and tobacco status: never smoked Alcohol intake: never Physical Exam Const: COMMON NORMALS: no acute distress GENERAL APPEARANCE: cooperative and comfortable ORIENTATION/CONSCIOUSNESS: Yes oriented to person, Yes oriented to place and Yes oriented to time HENMT: COMMON NORMALS: normocephalic, atraumatic, hearing grossly normal bilaterally and oropharynx normal HEAD & SCALP: normocephalic and atraumatic Eye: COMMON NORMALS: Equal, round and reactive pupils present, EOMs intact bilaterally, conjunctivae normal and no scleral icterus CONJUNCTIVA: Yes conjunctivae normal PUPIL: Yes Equal, round and reactive pupils present Neck/C-Spine: COMMON NORMALS: no JVD Resp: COMMON NORMALS: normal respiratory effort, No retractions, No use of accessory muscles and clear to auscultation bilaterally AUSCULTATION: clear to auscultation bilaterally Cardio: COMMON NORMALS: no JVD, regular rate, regular rhythm and No murmurs present (Cardio) RATE: regular rate RHYTHM: regular rhythm GI: COMMON NORMALS: Soft to palpation and No hepatosplenomegaly present AUSCULTATION: Yes normoactive bowel sounds PALPATION: Yes Soft to palpation, No Tenderness to palpation present (GI), No Guarding due to palpation present (GI) and Yes No hepatosplenomegaly present Extremity: COMMON NORMALS: normal to inspection, capillary refill normal and no calf tenderness NARRATIVE EXTREMITY EXAM: 1+ edema in lower extremities to the level of the knee Neuro: SENSORIUM/ORIENTATION: Yes oriented to person, Yes oriented to place and Yes oriented to time Skin: NARRATIVE SKIN EXAM: Decubitus changes over the sacrum with some small abrasions lateral to the superior aspect of the gluteal cleft no full-thickness ulcerations. Course Vital Signs: Vital signs: Vital Signs Temperature 97.5 F L 10/28/20 10:20 Pulse Rate 84 10/28/20 13:30 Respiratory Rate 27 H 10/28/20 13:30 Blood Pressure 83/57 10/28/20 13:30 Pulse Oximetry 97 10/28/20 13:30 MDM - Weakness MDM Narrative: Medical decision making narrative: Discussed signs Dr. Bloom we will admit the patient she is still hypotensive on the fluid bolus carefully due to her previous congestive heart failure she is hypokalemic is acute kidney injury elevated white count we have gotten a lactic which is normal she has been cultured as well discussed Dr. Silva orders have been written. Lab Data: Labs: Lab Results 10/28/20 10/28/20 10/28/20 Range/Units 10:05 10:05 11:57 WBC 15.3 H (4.0-10.0) 10^3/ uL RBC 4.89 (4.1-5.3) 10^6/u L Hgb 11.4 L (11.5-15.3) g/dL Hct 36.0 L (37.0-47.0) % MCV 73.6 L (81-99) fL MCH 23.3 L (28.0-34.0) pg MCHC 31.7 (30.0-36.0) g/dL RDW 18.6 H (12.1-15.1) % Plt Count 164 (130-400) 10^3/c mm MPV Not Reportable Neut % (Auto) 87.5 % Lymph % (Auto) 4.3 % [place] % (Auto) 5.9 % Eos % (Auto) 0.7 % Baso % (Auto) 0.2 % Neut # (Auto) 13.37 H (1.8-7.7) 10^3/u L Lymph # (Auto) 0.7 L (0.8-4.8) 10^3/u L [place] # (Auto) 0.9 (0.2-0.9) 10^3/u L Eos # (Auto) 0.1 (0.0-0.8) 10^3/u L Baso # (Auto) 0.0 (0.0-0.1) 10^3/u L Nucleated RBC % (a uto) 0 % Nucleated RBCs # 0.0 /100WBC Sodium 125 L (136-145) mmol/L Potassium 2.7 L* (3.5-5.1) mmol/L Chloride 78 L (98-107) mmol/L Carbon Dioxide 26 (22-29) mmol/L Anion Gap 23.7 H (5-19) BUN 121 H* D (8-23) mg/dL Creatinine 4.2 H (0.5-0.9) mg/dL GFR Calculation 10.6 L (90-130) mL/min Glucose 162 H (65-115) mg/dL Calculated Osmolal ity 302 H (285-295) mOsm/k g Lactic Acid 1.5 (0.5-2.2) mmol/L Calcium 8.5 (8.5-10.5) mg/dL Total Bilirubin 0.5 (0.15-1.2) mg/dL AST 10 (0-32) U/L ALT < 5 (0-33) U/L Alkaline Phosphata se 106 H (35-105) IU/L Creatine Kinase 17 L (26-192) U/L Total Protein 5.9 L (6.6-8.7) g/dL Albumin 3.3 L (3.5-5.2) g/dL Globulin 2.6 (1.3-4.6) g/dL Urine Color (Yellow) Urine Appearance (CLEAR) Urine pH (5-7) Ur Specific Gravit y (1.005-1.030) Urine Protein (Negative) Urine Glucose (UA) (Normal) Urine Ketones (Negative) Urine Blood (Negative) Urine Nitrate (Negative) Urine Bilirubin (Negative) Urine Urobilinogen (Negative) mg/dL Ur Leukocyte Nia ase (Negative) Urine RBC (0-2) /hpf Urine WBC (0-5) /hpf Ur Squamous Epith Cells (0-5) /hpf Amorphous Sediment /hpf Urine Bacteria (NONE) /hpf Serum Ketones Negative (Negative) 10/28/20 Range/Units 12:13 WBC (4.0-10.0) 10^3/ uL RBC (4.1-5.3) 10^6/u L Hgb (11.5-15.3) g/dL Hct (37.0-47.0) % MCV (81-99) fL MCH (28.0-34.0) pg MCHC (30.0-36.0) g/dL RDW (12.1-15.1) % Plt Count (130-400) 10^3/c mm MPV Neut % (Auto) % Lymph % (Auto) % [place] % (Auto) % Eos % (Auto) % Baso % (Auto) % Neut # (Auto) (1.8-7.7) 10^3/u L Lymph # (Auto) (0.8-4.8) 10^3/u L [place] # (Auto) (0.2-0.9) 10^3/u L Eos # (Auto) (0.0-0.8) 10^3/u L Baso # (Auto) (0.0-0.1) 10^3/u L Nucleated RBC % (a uto) % Nucleated RBCs # /100WBC Sodium (136-145) mmol/L Potassium (3.5-5.1) mmol/L Chloride (98-107) mmol/L Carbon Dioxide (22-29) mmol/L Anion Gap (5-19) BUN (8-23) mg/dL Creatinine (0.5-0.9) mg/dL GFR Calculation (90-130) mL/min Glucose (65-115) mg/dL Calculated Osmolal ity (285-295) mOsm/k g Lactic Acid (0.5-2.2) mmol/L Calcium (8.5-10.5) mg/dL Total Bilirubin (0.15-1.2) mg/dL AST (0-32) U/L ALT (0-33) U/L Alkaline Phosphata se (35-105) IU/L Creatine Kinase (26-192) U/L Total Protein (6.6-8.7) g/dL Albumin (3.5-5.2) g/dL Globulin (1.3-4.6) g/dL Urine Color Yellow (Yellow) Urine Appearance Hazy A (CLEAR) Urine pH 5 (5-7) Ur Specific Gravit y 1.020 (1.005-1.030) Urine Protein Neg (Negative) Urine Glucose (UA) Norm (Normal) Urine Ketones Negative (Negative) Urine Blood Neg (Negative) Urine Nitrate Negative (Negative) Urine Bilirubin Neg (Negative) Urine Urobilinogen Norm (Negative) mg/dL Ur Leukocyte Nia ase Negative (Negative) Urine RBC None (0-2) /hpf Urine WBC None (0-5) /hpf Ur Squamous Epith Cells 0-4 H (0-5) /hpf Amorphous Sediment 1+ /hpf Urine Bacteria Trace (NONE) /hpf Serum Ketones (Negative) Discharge Plan Discharge Patient Disposition: Admitted As Inpatient Admit Provider: Vianey Silva Clinical Impression: Hypotension, Pleural effusion, Hypokalemia, Diabetes, CHF (congestive heart failure), CKD (chronic kidney disease) stage 4, GFR 15-29 ml/min Condition: Stable Coding Level of Care Code ED Gallery Host for Chg Fwd Exam Comprehensive
[2020-10-28 10:56] LABS: Basophils % 0.2 %; Eosinophils # 0.1 10^3/uL (0.0-0.8); Eosinophils % 0.7 %; Hemoglobin 11.4 g/dL (11.5-15.3); Lymphocytes # 0.7 10^3/uL (0.8-4.8); Lymphocytes % 4.3 %; Mean Corpuscular HGB Conc 31.7 g/dL (30.0-36.0); Mean Corpuscular Hemoglobin 23.3 pg (28.0-34.0); Mean Corpuscular Volume 73.6 fL (81-99); Monocytes # 0.9 10^3/uL (0.2-0.9); Monocytes % 5.9 %; Neutrophils # 13.37 10^3/uL (1.8-7.7); Neutrophils % 87.5 %; Nucleated Red Blood Cells % 0 %; Platelet Count 164 10^3/cmm (130-400); Red Blood Count 4.89 10^6/uL (4.1-5.3); Red Cell Distribution Width 18.6 % (12.1-15.1); White Blood Count 15.3 10^3/uL (4.0-10.0)
[2020-10-28 10:58] LABS: Ketone (Acetest) Serum Negative (Negative)
[2020-10-28 11:07] LABS: Alanine Aminotransferase < 5 U/L (0-33); Albumin Level 3.3 g/dL (3.5-5.2); Alkaline Phosphatase 106 IU/L (35-105); Anion Gap 23.7 (5-19); Aspartate Amino Transferase 10 U/L (0-32); Calcium 8.5 mg/dL (8.5-10.5); Carbon Dioxide 26 mmol/L (22-29); Chloride 78 mmol/L (98-107); Creatine Phosphokinase 17 U/L (26-192); Globulin 2.6 g/dL (1.3-4.6); Glomerular Filtration Rate 10.6 mL/min (90-130); Glucose 162 mg/dL (65-115); Sodium 125 mmol/L (136-145); Total Bilirubin 0.5 mg/dL (0.15-1.2); Total Protein 5.9 g/dL (6.6-8.7)
[2020-10-28 11:17] LABS: Blood Urea Nitrogen 121 mg/dL (8-23); Osmolality Calculated 302 mOsm/kg (285-295); Potassium 2.7 mmol/L (3.5-5.1)
[2020-10-28 11:26] LABS: Slide Review Slide Review Perform
[2020-10-28 12:40] LABS: Add Urine Microscopic? YES; Bilirubin Urine Neg (Negative); Blood Urine Neg (Negative); Glucose Urine UA Norm (Normal); Ketones Urine Negative (Negative); Leukocyte Esterase Urine Negative (Negative); Nitrate Urine Negative (Negative); Protein Urine Neg (Negative); Urine Appearance Hazy (CLEAR); Urine Color Yellow (Yellow); Urobilinogen Urine Norm (Negative); pH Urine 5 (5-7)
[2020-10-28 12:48] LABS: Add Urine Culture? No; Amorphous Sediment Urine 1+ /hpf; Bacteria Urine TRACE /hpf; Squamous Epithelial Cell Urine 0-4 /hpf (0-5)
[2020-10-28 13:04] LABS: Lactic Sepsis W/Reflex 1.5 mmol/L (0.5-2.2)
[2020-10-28] MEDS: cefTRIAXone 1,000 MG in sodium chloride 0.9% (plus) 50 ML 100 MG IV (13:22)
--- NOTE | 2020-10-28 13:34 | PC.NURSE ---
Rounded on pt to start sepsis bolus as ordered. BC set drawn from IV site prior to IVF or abx being started. Pt resting in bed with son at bedside. Pt has no urine in thompson catheter at this time. Pt has no needs voiced.
[2020-10-28] MEDS: lidocaine 1% 5 ML in potassium chloride premix 100 ML 25 ML IV (14:19)
--- NOTE | 2020-10-28 14:30 | PM.HP ---
Providers/Chief Complaint Admitting Physician: Vianey Silva MD Primary Care Provider: Heather Núñez MD Chief Complaint: GENERALIZED WEAKNESS/ HYPOTENSION History of Present Illness Lizzie Pro is a 65 year old female with PMHx noted below, known to me from previous admission, presents accompanied by her brother secondary to ongoing and progressive generalized weakness, poor oral intake and generally feeling unwell for what she describes as 5 to 6 weeks. She lives independently but family takes turns coming to see her several times a week, lately per brother at bedside they have had to come and see her daily as she has not been doing well, has been unable to ambulate independently, oral intake has significantly diminished to almost none and she has overall not looked well. Review of medical record indicates that she was admitted at our facility in September during which time she was treated for persistent hypoglycemia, acute renal injury, acutely decompensated CHF with need for right thoracentesis with removal of 1 L. She is not oxygen dependent at baseline and states that she has been taking her medications including her anticoagulation and diuretics. However she has noted that she is not urinating quite as much as before. She denies having had any fever/chills, chest pain, shortness of breath, cough, abdominal pain, nausea/vomiting, blood in her urine or stool. She also denies exposure to any known COVID-19 positive individuals. She appears quite frail and weak during my assessment in the ER, part of the history is obtained from her brother at bedside. He states that family has been trying to get her placed at a [facility] due to ongoing concern for inability of patient to take care of herself. Work-up today reveals leukocytosis with a white count of 15.3, hemoglobin of 11.4, sodium of 125, potassium of 2.7, bicarb of 26, chloride of 78, elevated anion gap at 24, BUN of 121, creatinine of 4.2, blood glucose of 162, lactate of 1.5, urinalysis that is positive for trace bacteria but otherwise benign. Chest x-ray is reported as unremarkable, CT scan of the abdomen and pelvis shows small amount of ascites, small right pleural effusion and small pericardial effusion. She appears quite dehydrated and is currently receiving her first liter, infusing slowly as she does have underlying CHF. Slater catheter has been placed but she has not had any urine output so far. She has received a dose of ceftriaxone. Blood pressure remains low though seems to be fluid responsive. She is afebrile and not currently requiring any supplemental oxygen support. She is at high risk for decompensation and will require close monitoring particularly of her hemodynamic status. She will be admitted to [facility]. Explained care plan to patient and brother at bedside, both agreeable, questions answered to their satisfaction. Review of Systems Const: Reports: change in appetite (significantly decreased appetite) and fatigue; Denies: fever(s) or chills Eyes: Denies: change in vision ENMT: Reports: dry mouth Card: Reports: edema and swelling of feet/ankles; Denies: chest pain or lightheadedness Resp: Denies: dyspnea, productive cough or non-productive cough GI: Denies: abdominal pain, nausea, vomiting, hematemesis or hematochezia : Reports: oliguria; Denies: difficulty voiding, dysuria, urinary frequency or hematuria Musc: Denies: back pain Skin/Breast: Denies: rash Neuro: Reports: weakness in extremities and difficulty walking; Denies: numbness in extremities Psych: Reports: loss of interest and change in appetite; Denies: anxiety Medications/Allergies Home Medications Medication Instructions Recorded Confirmed Last Taken Type escitalopram oxalate 10 mg tablet 20 mg PO DAILY 01/20/20 10/28/20 09/07/20 History simvastatin 10 mg tablet 10 mg PO DAILY #30 tab 03/25/20 10/28/20 09/06/20 Rx Refresh Tears See Rx Instructions .ROUTE .COMPLEX 05/05/20 10/28/20 Unknown History Systane (PF) See Rx Instructions .ROUTE .COMPLEX 05/05/20 10/28/20 Unknown History glipizide 20 mg PO DAILY 05/05/20 10/28/20 09/07/20 History trazodone 100 mg PO BEDTIME 05/05/20 10/28/20 09/06/20 History Levemir FlexTouch U-100 Insuln 10 unit SUBCUT QAM #0 ml 09/15/20 10/28/20 09/07/20 Rx clotrimazole 1 % topical cream 1 applic TOPICAL BID 28 Days #15 gm 09/21/20 10/28/20 Unknown Rx torsemide 100 mg tablet 100 mg PO 0800 #30 tab 09/21/20 10/28/20 Unknown Rx torsemide 20 mg tablet 20 mg PO .qpm #30 tab 09/21/20 10/28/20 Unknown Rx amiodarone 200 mg tablet 200 mg PO DAILY #30 tab 09/28/20 10/28/20 Unknown Rx metoprolol tartrate 25 mg tablet 25 mg PO BID #180 tab 10/11/20 10/28/20 Unknown Rx rivaroxaban 10 mg tablet 15 mg PO DAILY 30 Days #135 tab 10/11/20 10/28/20 Unknown Rx Benadryl 2 cap PO PRN 10/28/20 10/28/20 Unknown History hydroxyzine pamoate 25 mg PO TID PRN 10/28/20 10/28/20 Unknown History metolazone 5 mg PO DAILY 10/28/20 10/28/20 Unknown History nystatin 1 applic TOPICAL TID 10/28/20 10/28/20 Unknown History potassium chloride See Rx Instructions .ROUTE .COMPLEX 10/28/20 10/28/20 Unknown History spironolactone See Rx Instructions .ROUTE .COMPLEX 10/28/20 10/28/20 Unknown History Allergies Allergy/AdvReac Type Severity Reaction Status Date / Time Penicillins Allergy Unknown Verified 05/05/20 08:39 PFSH Acute PFSH: Medical History (Updated 10/28/20 @ 15:02 by Vianey Silva MD) Anemia, chronic disease Atrial fibrillation CHF (congestive heart failure) CKD (chronic kidney disease) stage 4, GFR 15-29 ml/min Coronary artery disease Diabetes HTN (hypertension) Morbid obesity Pacemaker Surgical History (Updated 10/28/20 @ 14:45 by Vianey Silva MD) H/O tricuspid valve annuloplasty Hx of CABG S/P cholecystectomy S/P left atrial appendage ligation S/P Maze operation for atrial fibrillation Status post mitral valve annuloplasty Family History Other CAD (coronary artery disease) Diabetes Social History (Updated 10/28/20 @ 14:45 by Vianey Silva MD) Smoking and tobacco status: never smoked Alcohol intake: never Substance/Drug Use: never Lives independently: Yes Marital status: Single Vitals/I&O/Wt Last Vital Signs Temp 97.5 F L 10/28/20 10:20 Pulse 84 10/28/20 13:30 Resp 27 H 10/28/20 13:30 BP 83/57 10/28/20 13:30 Pulse Ox 97 10/28/20 13:30 Weight last 48 hrs Weight 83.915 kg Physical Exam Const: COMMON NORMALS: no acute distress, patient oriented x3 and alert GENERAL APPEARANCE: cooperative, comfortable, ill appearing, frail appearing and appears older than stated age NUTRITIONAL APPEARANCE: obese morbidly obese ORIENTATION/CONSCIOUSNESS: Yes awake OTHER: -appears fatigued HENMT: COMMON NORMALS: normocephalic, atraumatic and hearing grossly normal bilaterally HEAD & SCALP: normocephalic and atraumatic MOUTH: moist mucous membranes abnormal Details: parched Eye: COMMON NORMALS: Equal, round and reactive pupils present, EOMs intact bilaterally and conjunctivae normal CONJUNCTIVA: Yes conjunctivae normal PUPIL: Yes Equal, round and reactive pupils present Neck/C-Spine: COMMON NORMALS: full ROM GENERAL: Yes normal visual inspection and Yes trachea midline Chest: OTHER: -healed sternotomy scar Resp: COMMON NORMALS: normal respiratory effort, No retractions and No use of accessory muscles EFFORT & INSPECTION: Yes able to speak in complete sentences, Yes symmetric chest movement and Yes tachypneic AUSCULTATION: diminished lung sounds OTHER: -on RA Cardio: COMMON NORMALS: regular rate, regular rhythm, S1 normal heart sound present, S2 normal heart sound present and No murmurs present (Cardio) RATE: regular rate RHYTHM: regular rhythm HEART SOUNDS: S1 normal heart sound present and S2 normal heart sound present OTHER: -intermittently irregular rhythm on telemetry vs. paced rhythm -hypotensive GI: COMMON NORMALS: Normal to inspection, nondistended, normoactive bowel sounds present, Soft to palpation and non-tender INSPECTION: Yes central obesity PALPATION: Yes Soft to palpation : BLADDER/KIDNEY EXAM: Yes catheter in place Catheter type (Female): urethral Extremity: COMMON NORMALS: normal to inspection, full ROM and no pedal edema NARRATIVE EXTREMITY EXAM: -1-2+ pitting edema of bilateral LEs Neuro: COMMON NORMALS: patient oriented x3, moves all extremities, no focal motor deficits and no sensory deficits noted SENSORIUM/ORIENTATION: Yes alert OTHER: -generally very weak Psych: COMMON NORMALS: mental status grossly normal, Normal thought process present, cooperative and speech normal SPEECH: Yes normal speech MOOD & AFFECT: Yes Flat affect present THOUGHT PROCESS: Normal thought process present Skin: COMMON NORMALS: no rashes or lesions noted, no jaundice, no petechiae and no mottling GENERAL SKIN EXAM: no rashes or lesions noted Urinary Catheter Management^: Slater: Cath Placed During This Visit: yes Reason for Continuing Indwelling Catheter: Assist Healing of Perineal & Sacral Wounds- Incontinent Patients Urinary Catheter Date of Insertion: 10/28/20 Urinary Catheter Time of Insertion: 12:10 Data : 10/28/20 10:05 10/28/20 10:05 Micro: Microbiology 10/28/20 13:22 Blood Culture - Preliminary Blood SPECIMEN COLLECTED 10/28/20 12:01 Blood Culture - Preliminary Blood SPECIMEN COLLECTED A&P Assessment and plan (1) Hypotension: -Noted to be hypotensive likely secondary to degree of dehydration with minimal oral intake over the past several weeks -Currently receiving normal saline bolus -Plan to continue gentle hydration with caution secondary to underlying CHF due to risk for fluid overload -Hold diuretics and oral antihypertensives for now -Close monitoring of vital signs especially blood pressure -Currently meets sepsis criteria as evidenced by hypotension, tachypnea, leukocytosis; no clear source of infection at this time as chest x-ray unremarkable, urinalysis shows trace bacteria but is otherwise benign, CT scan of the abdomen and pelvis is also unremarkable for source of infection. Lactic acid is within normal limits, she is currently afebrile. Due to overall ill appearance, hypotension and underlying comorbidities will cover with broad-spectrum IV antibiotics at this time -Request rapid COVID-19 testing -Give dose of albumin now Status: Acute Qualifiers: Hypotension type: unspecified hypotension type Qualified Code(s): I95.9 - Hypotension, unspecified (2) Hypokalemia: -Secondary to poor oral intake -Replacement ongoing -Trend K Status: Acute (3) SANDY (acute kidney injury): -SANDY superimposed on CKD stage IV -Baseline creatinine appears to be around 2 -Secondary to dehydration and poor oral intake -Has Slater catheter in place, monitor urine output closely -Continue to monitor renal function, renally dose meds, avoid nephrotoxins -Consider nephrology evaluation if continued impairment, oliguria Status: Acute (4) CKD (chronic kidney disease) stage 4, GFR 15-29 ml/min: -Follows up with Dr. Swain as an outpatient Status: Chronic (5) CHF (congestive heart failure): -Clinically she does have some evidence of edema in her bilateral lower extremities part of which is chronic; this seems more likely secondary to poor nutritional status and to acutely decompensated CHF -Echo ordered -hold diuretics for now as she appears clinically dehydrated and intravascularly depleted -Monitor vital signs -Telemetry monitoring -Check BNP, no evidence of effusions on x-ray though noted to have small pericardial effusion, small right pleural effusion, small amount of ascites on CT scan of the abdomen and pelvis Status: Acute Qualifiers: Heart failure type: systolic Heart failure chronicity: chronic Qualified Code(s): I50.22 - Chronic systolic (congestive) heart failure (6) Generalized weakness: -Likely multifactorial given physical deconditioning, dehydration, poor oral intake, electrolyte abnormalities, impaired renal function -Strict fall precautions -PT/OT/ST evaluations Status: Acute (7) HTN (hypertension): -hold oral antihypertensives secondary to hypotension Status: Chronic Qualifiers: Hypertension type: essential hypertension Qualified Code(s): I10 - Essential (primary) hypertension (8) Diabetes: -last A1c at goal (6.2) -Accucheks, ISS, hold scheduled insulin given poor oral intake; hold oral hypoglycemic agents, hypoglycemia precautions -cardiac consistent carb diet as tolerated Status: Chronic Qualifiers: Diabetes mellitus type: type 2 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: with longwall machine operator helper use Diabetes mellitus complication status: with kidney complications Diabetes mellitus complication detail: with chronic kidney disease Chronic kidney disease stage: stage 4 (severe) Qualified Code(s): E11.22 - Type 2 diabetes mellitus with diabetic chronic kidney disease; N18.4 - Chronic kidney disease, stage 4 (severe); Z79.4 - group home (current) use of insulin Additional A&P Information -hx of severe MR and TR s/p mitral and tricuspid valve repair, Maze procedure: done at [facility] in 12/2018 -Morbid obesity: BMI-33 kg/m2 though overall nutrition status is quite poor -hx of PE; on AC with Xarelto; hold for now -CAD s/p CABG -Chronic atrial fibrillation; on AC with Xarelto -has dual chamber pacemaker in place -HTN -Chronic normocytic anemia; baseline Hg around 9-11 -Hypokalemia, hyponatremia, elevated anion gap metabolic acidosis; ongoing replacement of electrolytes, start on bicarb, close monitoring of electrolytes -GI ppx with PPI -DVT ppx with heparin -Dispo: needs SNF placement, agreeable -Code status: DNR, ok with intubation; discussed with patient and brother at bedside -guarded prognosis due to underlying comorbidities, hypotension, dehydration, poor oral intake -admit to CSU; low threshold for decompensation Attestations Medical Necessity Statement*: Lizzie Pro's hospital stay will require greater than 2 midnights for management of hypotension, sepsis, significant dehydration, acute renal impairment, generalized weakness. Needs close monitoring of hemodynamic status, IV fluid hydration. Time Spent in Patient Care: Greater than 35 minutes (>than 50% of time spent in counselling and/or direct pt care on unit). 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: with halfway use Diabetes mellitus complication status: with kidney complications Diabetes mellitus complication detail: with chronic kidney disease Chronic kidney disease stage: stage 4 (severe) Sepsis Event Note Evaluation Current stage of sepsis: sepsis Initial hypotension due to sepsis/infection: SBP < 90 mmHg and MAP < 65 mmHg Possible source: unknown Focused Exam Vital Signs Temp Pulse Pulse Resp BP BP Pulse Ox 10/28/20 14:50 77 22 H 93/53 96 10/28/20 13:30 84 27 H 83/57 97 10/28/20 13:00 86 22 H 86/47 97 10/28/20 12:31 77 22 H 89/52 99 10/28/20 12:00 79 22 H 91/55 97 10/28/20 11:00 77 22 H 87/55 98 10/28/20 10:33 99 10/28/20 10:30 75 22 H 84/47 98 10/28/20 10:20 97.5 F L 75 22 H 90/53 97 Respiratory exam: Present decreased breath sounds; Absent accessory muscle use and respiratory distress Cardiovascular exam: Present RRR, S1 and S2 Skin exam: pale Date exam was performed: 10/28/20 Time exam was performed: 15:16
[2020-10-28 14:52] LABS: SARS Covid-2 Antigen Negative (Negative)
[2020-10-28] MEDS: sodium bicarbonate 650 mg Tablet PO ×2 (15:21→20:09)
[2020-10-28] MEDS: sodium chlor 0.9% + KCl 20 mEq 20 MEQ/1,000 ML BAG 50 MEQ IV (15:21)
[2020-10-28] MEDS: heparin 5,000 unit/mL INJ 1 mL 5000 UNIT SUBCUT ×2 (15:21→22:45)
[2020-10-28 16:02] LABS: NT Pro B Type Natriuretic Pept 10076 pg/mL (0-125)
[2020-10-28] MEDS: piperacillin-tazobactam 3.375 GM in sodium chloride 0.9% (plus) 50 ML IV ×2 (16:44→22:45)
[2020-10-28] MEDS: albumin 12.5 GM/250 ML VIAL IV (16:44)
[2020-10-28 17:19] LABS: Glucose Point of Care 138 mg/dL (70-110)
--- NOTE | 2020-10-28 18:43 | PC.NURSE ---
Transfer to ICU report called to [employer]IC[employer] BJ. Osorio pt via bed.
[2020-10-28] MEDS: sennosides-docusate Tablet 1 TAB PO (19:55)
[2020-10-28] MEDS: trazodone 100 mg Tablet PO (20:09)
[2020-10-28] MEDS: atorvastatin 40 mg Tablet 20 MG PO (20:09)
[2020-10-28 20:45] LABS: Carbon Dioxide 24 mmol/L (22-29); Chloride 84 mmol/L (98-107); Glomerular Filtration Rate 10.6 mL/min (90-130); Glucose 206 mg/dL (65-115); Sodium 127 mmol/L (136-145)
[2020-10-28 20:49] LABS: Anion Gap 22.1 (5-19); Potassium 3.1 mmol/L (3.5-5.1)
[2020-10-28 20:59] LABS: Osmolality Calculated 308 mOsm/kg (285-295)
[2020-10-28 21:00] LABS: Blood Urea Nitrogen 120 mg/dL (8-23)
--- NOTE | 2020-10-28 23:00 | PC.NURSE ---
Patient resting in room with eyes open. Patient is alert and orientated. Patient is able to voice concerns and make needs known. Patient was started on Levophed to maintain MAP above 60. Currently running at 4mcg/min. Patient is able to perform tasks of ADL's and can sit self up in bed, but relies on nursing staff to perform tasks for patient. Denies pain. Call light within reach. Continue care.
[2020-10-29] VITALS (110 sets, daily range): BP systolic 78–113; BP diastolic 53–77; PULSE 71–140; RESP 9–48; TEMP 36.6–36.9; O2SAT 78–96; BMI 32.8
--- NOTE | 2020-10-29 00:32 | PC.PHAR ---
Zosyn dosage is adjusted from 3.375gm IVPB every 8 hours to 3.375gm IVPB every 12 hours due to creatinine clearance of 13.7
--- NOTE | 2020-10-29 02:19 | PC.NURSE ---
Noticed telemetry change and EKG performed, results of afib with RVR. Called Dr. Villalobos to notify of change. Pulse rate currently 115-125 bpm. No new orders at this time.
--- NOTE | 2020-10-29 02:40 | ECG_ITS ---
[facility] Test Date: 2020-10-29 Pat Name: Lizzie Pro Department: Room: ICU03 Gender: Female Station Captain: : [id number] Requested By: Vianey Silva Order Number: [id number] Kevyn MD: SRINIVASAN WHEATLEY Measurements Intervals [place] Rate: 108 P: CO: QRS: 154 QRSD: 130 T: 131 QT: 413 QTc: 554 Interpretive Statements ATRIAL FIBRILLATION WITH RAPID VENTRICULAR RESPONSE WITH ABERRANT CONDUCTION OR VENTRICULAR PREMATURE COMPLEXES MARKED RIGHT AXIS DEVIATION [QRS AXIS > 100] RIGHT BUNDLE BRANCH BLOCK [120+ ms QRS DURATION, UPRIGHT V1, 40+ ms S IN I/aVL/V4/V5/V6] INTERPRETATION BASED ON A DEFAULT AGE OF 40 YEARS Compared to ECG 10/28/2020 10:25:46 Aberrant conduction of supraventricular beat(s) now present Ventricular premature complex(es) now present Electronically Signed On 10-29-2020 18:13:56 SET KEY DRIVER by SRINIVASAN WHEATLEY [id number]
--- NOTE | 2020-10-29 02:56 | PC.NURSE ---
Patients left abdominal fold is very excoriated and raw. Interdry placed to help absorb extra moisture after bed bath. Patient also complains of back itching. Lotion applied.
[2020-10-29 04:14] LABS: Basophils % 0.1 %; Eosinophils # 0.2 10^3/uL (0.0-0.8); Eosinophils % 1.2 %; Hematocrit 35.7 % (37.0-47.0); Hemoglobin 11.5 g/dL (11.5-15.3); Lymphocytes # 0.7 10^3/uL (0.8-4.8); Lymphocytes % 4.7 %; Mean Corpuscular HGB Conc 32.2 g/dL (30.0-36.0); Mean Corpuscular Hemoglobin 23.4 pg (28.0-34.0); Mean Corpuscular Volume 72.7 fL (81-99); Mean Platelet Volume 11.4 fL (7.4-10.4); Monocytes # 1.1 10^3/uL (0.2-0.9); Neutrophils # 13.12 10^3/uL (1.8-7.7); Neutrophils % 84.9 %; Nucleated Red Blood Cells % 0 %; Platelet Count 157 10^3/cmm (130-400); Red Blood Count 4.91 10^6/uL (4.1-5.3); Red Cell Distribution Width 18.6 % (12.1-15.1); White Blood Count 15.5 10^3/uL (4.0-10.0)
[2020-10-29 04:46] LABS: Carbon Dioxide 17 mmol/L (22-29); Chloride 87 mmol/L (98-107); Glomerular Filtration Rate 9.8 mL/min (90-130); Glucose 162 mg/dL (65-115); Magnesium 2.7 mg/dL (1.7-2.3); Sodium 131 mmol/L (136-145)
[2020-10-29 04:47] LABS: Anion Gap 30.3 (5-19); Potassium 3.3 mmol/L (3.5-5.1)
[2020-10-29 04:58] LABS: Blood Urea Nitrogen 122 mg/dL (8-23); Osmolality Calculated 315 mOsm/kg (285-295)
[2020-10-29] MEDS: heparin 5,000 unit/mL INJ 1 mL 5000 UNIT SUBCUT ×3 (06:31→23:01)
[2020-10-29 07:24] LABS: Glucose Point of Care 181 mg/dL (70-110)
[2020-10-29 07:24] LABS: Glucose Point of Care 176 mg/dL (70-110)
--- NOTE | 2020-10-29 07:53 | PM.PN ---
Subjective Subjective: Interval history: Overnight, required initiation of levophed due to continued hypotension, had 100 mL urine output, renal impairment persists with Cr up to 4.5. Potassium improved though still low, stable leukocytosis, afebrile. Developed atrial fibrillation with RVR overnight, remains on RA. Case briefly discussed with nephrology, escalate IVF hydration and hold diuretics. Medications: Reviewed: Yes Medication Review Details: Active Medications Generic Name Dose Route Start Last Admin Trade Name Freq PRN Reason Stop Dose Admin Acetaminophen 650 mg 10/28/20 14:47 Acetaminophen 32 5 Mg Tablet PO Q6H PRN MILD PAIN Amiodarone HCl 200 mg 10/29/20 09:00 Amiodarone 200 M g Tablet PO DAILY JM Atorvastatin Calci um 20 mg 10/28/20 21:00 10/28/20 20:09 Atorvastatin 40 Mg Tablet PO 20 mg BEDTIME JM Administration Clotrimazole 1 applic 10/28/20 18:00 10/28/20 18:44 Clotrimazole 1% Cream 30 Gm TOPICAL Not Given BID JM Dextrose 25 ml 10/28/20 14:47 Dextrose 50% Syr luma 50 Ml IVP ONCE PRN hypoglycemia prot ocol Protocol Dextrose 50 ml 10/28/20 14:47 Dextrose 50% Syr luma 50 Ml IVP PRN PRN hypoglycemia prot ocol Protocol Glucagon 1 mg 10/28/20 14:47 Glucagon 1 Mg/Ml Inj 1 Ml IM ONCE PRN Adult Acute Hypog lycemia Prot. Protocol Heparin Sodium (Be ef Lung) 5,000 unit 10/28/20 15:30 10/29/20 06:31 Heparin 5,000 Un it/Ml Inj 1 Ml SUBCUT 5,000 unit Q8H JM Administration Hydroxyzine Pamoat e 25 mg 10/28/20 14:47 Hydroxyzine 25 M g Capsule PO TID PRN Itching Dextrose 500 mls @ 100 mls /hr 10/28/20 14:47 D5w IV ONCE PRN Adult Acute Hypog lycemia Prot Protocol Potassium Chloride /Sodium Chloride 20 meq in 1,000 m ls @ 50 mls/hr 10/28/20 14:47 10/28/20 15:21 Sodium Chlor 0.9 % + Kcl 20 Meq IV 50 mls/hr .Q20H JM Administration Norepinephrine Bit artrate 4 mg 254 mls @ 0 mls/h r 10/28/20 18:40 10/29/20 03:12 / Dextrose IV 2 mcg/min .Q0M JM 7.6 mls/hr Titration Protocol Per Protocol Piperacillin Sod/T azobactam 50 mls @ 12.5 mls /hr 10/29/20 11:00 Sod 3.375 gm/ So dium Chloride IV Q12H [facility] Protocol As Directed Sodium Bicarbonate 50 meq/ 1,050 mls @ 100 m ls/hr 10/29/20 08:00 Sodium Chloride IV .[id number] [facility] Insulin Aspart 0 unit 10/28/20 18:00 10/29/20 07:30 Insulin Aspart 1 00 Unit/1 Ml SUBCUT 2 unit WM&BEDTIME JM Administration Protocol Metoprolol Tartrat e 25 mg 10/28/20 18:00 10/28/20 18:09 Metoprolol Tartr ate 25 Mg Tablet PO Not Given BID [facility] Morphine Sulfate 2 mg 10/28/20 14:47 Morphine 4 Mg/Ml Sdv 1 Ml IVP Q4H PRN SEVERE PAIN Ondansetron HCl 4 mg 10/28/20 14:47 Ondansetron 2 Mg /Ml Sdv 2 Ml IVP Q6H PRN NAUSEA AND VOMITI NG Pantoprazole Sodiu m 40 mg 10/29/20 09:[address] 40 Mg Tablet PO DAILY [facility] Senna/Docusate Sod ium 1 tab 10/28/20 18:00 10/28/20 19:55 Sennosides-Docus ate Tablet PO 1 tab BID JM Administration Sodium Bicarbonate 650 mg 10/28/20 15:00 10/28/20 20:09 Sodium Bicarbona te 650 Mg Tablet PO 650 mg TID JM Administration Trazodone HCl 100 mg 10/28/20 21:00 10/28/20 20:09 Trazodone 100 Mg Tablet PO 100 mg BEDTIME JM Administration Penicillins Allergy (Verified 05/05/20 08:39) Unknown Vitals/I&O/Wt Last Vital Signs Temp 98.4 F 10/29/20 03:50 Pulse 105 H 10/29/20 06:05 Resp 12 10/29/20 06:05 BP 100/61 10/29/20 06:05 Pulse Ox 93 10/29/20 06:05 10/28/20 10/29/20 10/29/20 22:59 06:59 14:59 Intake Total 452.66 / 452.66 139.04 / 591.70 Output Total 100 / 100 Balance 452.66 / 452.66 39.04 / 491.70 Weight last 48 hrs Weight 83.915 kg Physical Exam Const: COMMON NORMALS: no acute distress, patient oriented x3 and alert GENERAL APPEARANCE: cooperative, comfortable, ill appearing, frail appearing and appears older than stated age NUTRITIONAL APPEARANCE: obese morbidly obese ORIENTATION/CONSCIOUSNESS: Yes awake OTHER: -appears fatigued HENMT: COMMON NORMALS: normocephalic, atraumatic and hearing grossly normal bilaterally HEAD & SCALP: normocephalic and atraumatic MOUTH: moist mucous membranes abnormal Details: parched Eye: COMMON NORMALS: Equal, round and reactive pupils present, EOMs intact bilaterally and conjunctivae normal CONJUNCTIVA: Yes conjunctivae normal PUPIL: Yes Equal, round and reactive pupils present Neck/C-Spine: COMMON NORMALS: full ROM GENERAL: Yes normal visual inspection and Yes trachea midline Chest: OTHER: -healed sternotomy scar Resp: COMMON NORMALS: normal respiratory effort, No retractions and No use of accessory muscles EFFORT & INSPECTION: Yes able to speak in complete sentences, Yes symmetric chest movement and Yes tachypneic AUSCULTATION: diminished lung sounds OTHER: -on RA Cardio: COMMON NORMALS: regular rate, S1 normal heart sound present, S2 normal heart sound present and No murmurs present (Cardio) RATE: regular rate RHYTHM: abnormal rhythm irregularly irregular HEART SOUNDS: S1 normal heart sound present and S2 normal heart sound present OTHER: -intermittently irregular rhythm on telemetry vs. paced rhythm -low normal BP GI: COMMON NORMALS: Normal to inspection, nondistended, normoactive bowel sounds present, Soft to palpation and non-tender INSPECTION: Yes central obesity PALPATION: Yes Soft to palpation : BLADDER/KIDNEY EXAM: Yes catheter in place Catheter type (Female): urethral Extremity: COMMON NORMALS: normal to inspection, full ROM and no pedal edema NARRATIVE EXTREMITY EXAM: -1-2+ pitting edema of bilateral LEs Neuro: COMMON NORMALS: patient oriented x3, moves all extremities, no focal motor deficits and no sensory deficits noted SENSORIUM/ORIENTATION: Yes alert OTHER: -generally very weak Psych: COMMON NORMALS: mental status grossly normal, Normal thought process present, cooperative and speech normal SPEECH: Yes normal speech MOOD & AFFECT: Yes Flat affect present THOUGHT PROCESS: Normal thought process present Skin: COMMON NORMALS: no rashes or lesions noted, no jaundice, no petechiae and no mottling GENERAL SKIN EXAM: no rashes or lesions noted Urinary Catheter Management^: Slater: Cath Placed During This Visit: yes Reason for Continuing Indwelling Catheter: Accurate Measurement of Urinary Output in Critically Ill Patients Urinary Catheter Date of Insertion: 10/28/20 Urinary Catheter Time of Insertion: 12:10 Data : 10/29/20 03:33 10/29/20 12:32 Micro: Microbiology 10/28/20 13:22 Blood Culture - Preliminary Blood SPECIMEN COLLECTED 10/28/20 12:01 Blood Culture - Preliminary Blood SPECIMEN COLLECTED A&P Assessment and plan (1) Hypotension: -Noted to be hypotensive likely secondary to degree of dehydration with minimal oral intake over the past several weeks -on IVF with caution secondary to underlying CHF due to risk for fluid overload -continue to hold diuretics and oral antihypertensives for now -Close monitoring of vital signs especially blood pressure -Currently meets sepsis criteria as evidenced by hypotension, tachypnea, leukocytosis; no clear source of infection at this time as chest x-ray unremarkable, urinalysis shows trace bacteria but is otherwise benign, CT scan of the abdomen and pelvis is also unremarkable for source of infection. Lactic acid is within normal limits, she is currently afebrile. Due to overall ill appearance, hypotension and underlying comorbidities, will cover with broad-spectrum IV antibiotics at this time -negative rapid COVID-19 testing -albumin x 1 dose; additional doses as needed Status: Acute Qualifiers: Hypotension type: unspecified hypotension type Qualified Code(s): I95.9 - Hypotension, unspecified (2) Hypokalemia: -Secondary to poor oral intake -Replacement ongoing -continue to trend K Status: Acute (3) SANDY (acute kidney injury): -SANDY superimposed on CKD stage IV -Baseline creatinine appears to be around 2 -Secondary to dehydration and poor oral intake -Has Slater catheter in place, continue to monitor urine output closely -Continue to monitor renal function, renally dose meds, avoid nephrotoxins -Nephrology evaluation requested due to continued impairment, oliguria Status: Acute (4) CKD (chronic kidney disease) stage 4, GFR 15-29 ml/min: -Follows up with Dr. Swain as an outpatient Status: Chronic (5) CHF (congestive heart failure): -Clinically she does have some evidence of edema in her bilateral lower extremities part of which is chronic; this seems more likely secondary to poor nutritional status and to acutely decompensated CHF -Echo ordered -hold diuretics for now as she appears clinically dehydrated and intravascularly depleted -continue to monitor vital signs -Telemetry monitoring -BNP quite elevated (>10,000), no evidence of effusions on x-ray though noted to have small pericardial effusion, small right pleural effusion, small amount of ascites on CT scan of the abdomen and pelvis Status: Acute Qualifiers: Heart failure chronicity: chronic Heart failure type: systolic Qualified Code(s): I50.22 - Chronic systolic (congestive) heart failure (6) Generalized weakness: -Likely multifactorial given physical deconditioning, dehydration, poor oral intake, electrolyte abnormalities, impaired renal function -Strict fall precautions -PT/OT/ST evaluations appreciated; participation limited Status: Acute (7) HTN (hypertension): -hold oral antihypertensives secondary to hypotension Status: Chronic Qualifiers: Hypertension type: essential hypertension Qualified Code(s): I10 - Essential (primary) hypertension (8) Diabetes: -last A1c at goal (6.2) -Accucheks, ISS, hold scheduled insulin given poor oral intake; hold oral hypoglycemic agents, hypoglycemia precautions -cardiac consistent carb diet (mechanical soft) as tolerated Status: Chronic Qualifiers: Chronic kidney disease stage: stage 4 (severe) Diabetes mellitus complication detail: with chronic kidney disease Diabetes mellitus complication status: with kidney complications Diabetes mellitus superintendent terminal insulin use: with superintendent terminal use Diabetes mellitus type: type 2 Qualified Code(s): E11.22 - Type 2 diabetes mellitus with diabetic chronic kidney disease; N18.4 - Chronic kidney disease, stage 4 (severe); Z79.4 - prison (current) use of insulin Additional A&P Information -hx of severe MR and TR s/p mitral and tricuspid valve repair, Maze procedure: done at [facility] in 12/2018 -Morbid obesity: BMI-33 kg/m2 though overall nutrition status is quite poor -hx of PE; on AC with Xarelto; hold for now -CAD s/p CABG -Chronic atrial fibrillation; on AC with Xarelto -has dual chamber pacemaker in place -HTN -Chronic normocytic anemia; baseline Hg around 9-11 -Hypokalemia, hyponatremia, elevated anion gap metabolic acidosis; ongoing replacement of electrolytes, start on bicarb, close monitoring of electrolytes -GI ppx with PPI -DVT ppx with heparin -Dispo: needs SNF placement, agreeable -Code status: DNR, ok with intubation; discussed with patient and brother at bedside -guarded prognosis due to underlying comorbidities, hypotension, dehydration, poor oral intake -continue ICU care due to low threshold for decompensation Attestations Medical Necessity Statement*: Patient requires hospitalization for continued management of acute renal impairment, oliguria, electrolyte imbalances and generalized weakness; needs aggressive IVF with close monitoring for development of fluid overload. Time Spent in Patient Care: Greater than 35 minutes (>than 50% of time spent in counselling and/or direct pt care on unit). 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 g Fwd Exam Comprehensive Diagnoses Hypotension I95.9 Hypotension type: unspecified hypotension type Hypokalemia E87.6 SANDY (acute kidney injury) N17.9 CKD (chronic kidney disease) stage 4, GFR 15-29 ml/min N18.4 CHF (congestive heart failure) I50.22 Heart failure chronicity: chronic Heart failure type: systolic Generalized weakness R53.1 HTN (hypertension) I10 Hypertension type: essential hypertension Diabetes E11.22; N18.4; Z79.4 Chronic kidney disease stage: stage 4 (severe) Diabetes mellitus complication detail: with chronic kidney disease Diabetes mellitus complication status: with kidney complications Diabetes mellitus residential insulin use: with residential use Diabetes mellitus type: type 2
--- NOTE | 2020-10-29 08:03 | USR_ITS ---
PROCEDURE INFORMATION: Exam: US Retroperitoneal; Complete; Kidneys and Bladder Exam date and time: 10/29/2020 9:05 AM Age: 65 years old Clinical indication: Abnormal findings; Abnormal lab test; Abnormal kidney function lab tests; Additional info: Oliguria, significant renal impairment TECHNIQUE: Imaging protocol: Real-time ultrasound of the retroperitoneum with image documentation. Complete exam focused on the kidneys and bladder. COMPARISON: CT abdomen pelvis con [id number] 10/28/2020 11:19 AM FINDINGS: Evaluation is limited due to patient body habitus. Right kidney: Incompletely visualized right kidney measures 10.1 cm in length. No hydronephrosis. Left kidney: Partial obscuration of the left kidney. No hydronephrosis. Spleen: Spleen upper limits of normal in size. Urinary bladder: Nonvisualization of the bladder. US/US renal BI* [id number] IMPRESSION: Technically limited examination, with the kidneys and collecting systems better visualized on earlier CT.
[2020-10-29] MEDS: lidocaine 1% 5 ML in potassium chloride premix 100 ML 25 ML IV (08:12)
[2020-10-29] MEDS: sodium bicarbonate 50 MEQ in sodium chloride 0.45% 1,000 ML 100 MEQ IV ×3 (08:13→23:57)
[2020-10-29] MEDS: sennosides-docusate Tablet 1 TAB PO (09:19)
[2020-10-29] MEDS: clotrimazole 1% cream 30 gm 1 APPLIC TOPICAL ×2 (09:19→17:27)
[2020-10-29] MEDS: amiodarone 200 mg Tablet PO (09:19)
[2020-10-29] MEDS: pantoprazole DR 40 mg Tablet PO (09:19)
[2020-10-29] MEDS: piperacillin-tazobactam 3.375 GM in sodium chloride 0.9% (plus) 50 ML IV ×2 (11:07→23:00)
[2020-10-29 12:07] LABS: Glucose Point of Care 164 mg/dL (70-110)
[2020-10-29 13:03] LABS: Anion Gap 25.5 (5-19); Calcium 7.8 mg/dL (8.5-10.5); Carbon Dioxide 18 mmol/L (22-29); Chloride 81 mmol/L (98-107); Glomerular Filtration Rate 11.6 mL/min (90-130); Glucose 303 mg/dL (65-115); Osmolality Calculated 295 mOsm/kg (285-295); Phosphorus 7.1 mg/dL (2.5-4.5); Potassium 3.5 mmol/L (3.5-5.1); Sodium 121 mmol/L (136-145)
[2020-10-29 13:21] LABS: Blood Urea Nitrogen 101 mg/dL (8-23)
--- NOTE | 2020-10-29 16:30 | PM.CONSULT ---
Providers/Reason For Consult Consulting Physican/Specialty*: [place]ar[place]/Telenephrology Reason for Consult*: Renal failure Attending Physician: Vianey Silva MD Primary Care Provider: Heather Núñez MD History of Present Illness History of Present Illness Lizzie Pro is a 65 year old female with h/o chf,ckd,htn was brought to ER with generalised weakness and not feeling well. Pt hasn't been drinking enough water for past few weeks. She continued to take her diuretics. Initially admitted to regular floor but as BP was low, she was moved to icu. Telenephrology was consulted for her renal failure as creatinine was in above 4 Review of Systems Const: Denies: fever(s) or chills Card: Denies: chest pain, palpitations or dyspnea on exertion Resp: Denies: productive cough GI: Denies: abdominal pain, nausea, vomiting or diarrhea : Denies: flank pain or difficulty voiding Musc: Reports: back pain Skin/Breast: Denies: rash Neuro: Denies: headache(s) Louie/Lymph: Denies: easy bleeding All/Imm: Denies: urticaria Meds/Allergies Home Medications and Allergies Home Medications Medication Instructions Recorded Confirmed Last Taken Type escitalopram oxalate 10 mg tablet 20 mg PO DAILY 01/20/20 10/28/20 09/07/20 History simvastatin 10 mg tablet 10 mg PO DAILY #30 tab 03/25/20 10/28/20 09/06/20 Rx Refresh Tears See Rx Instructions .ROUTE .COMPLEX 05/05/20 10/28/20 Unknown History Systane (PF) See Rx Instructions .ROUTE .COMPLEX 05/05/20 10/28/20 Unknown History glipizide 20 mg PO DAILY 05/05/20 10/28/20 09/07/20 History trazodone 100 mg PO BEDTIME 05/05/20 10/28/20 09/06/20 History Levemir FlexTouch U-100 Insuln 10 unit SUBCUT QAM #0 ml 09/15/20 10/28/20 09/07/20 Rx clotrimazole 1 % topical cream 1 applic TOPICAL BID 28 Days #15 gm 09/21/20 10/28/20 Unknown Rx torsemide 100 mg tablet 100 mg PO 0800 #30 tab 09/21/20 10/28/20 Unknown Rx torsemide 20 mg tablet 20 mg PO .qpm #30 tab 09/21/20 10/28/20 Unknown Rx amiodarone 200 mg tablet 200 mg PO DAILY #30 tab 09/28/20 10/28/20 Unknown Rx metoprolol tartrate 25 mg tablet 25 mg PO BID #180 tab 10/11/20 10/28/20 Unknown Rx rivaroxaban 10 mg tablet 15 mg PO DAILY 30 Days #135 tab 10/11/20 10/28/20 Unknown Rx Benadryl 2 cap PO PRN 10/28/20 10/28/20 Unknown History hydroxyzine pamoate 25 mg PO TID PRN 10/28/20 10/28/20 Unknown History metolazone 5 mg PO DAILY 10/28/20 10/28/20 Unknown History nystatin 1 applic TOPICAL TID 10/28/20 10/28/20 Unknown History potassium chloride See Rx Instructions .ROUTE .COMPLEX 10/28/20 10/28/20 Unknown History spironolactone See Rx Instructions .ROUTE .COMPLEX 10/28/20 10/28/20 Unknown History Allergies Allergy/AdvReac Type Severity Reaction Status Date / Time Penicillins Allergy Unknown Verified 05/05/20 08:39 Current Medications Current Medications Generic Name Dose Route Start Last Admin Trade Name Freq PRN Reason Stop Dose Admin Amiodarone HCl 200 mg 10/29/20 09:00 10/29/20 09:19 Amiodarone 200 Mg Tablet PO 200 mg DAILY JM Administration Atorvastatin Calcium 20 mg 10/28/20 21:00 10/28/20 20:09 Atorvastatin 40 Mg Tablet PO 20 mg BEDTIME JM Administration Clotrimazole 1 applic 10/28/20 18:00 10/29/20 09:19 Clotrimazole 1% Cream 30 Gm TOPICAL 1 applic BID JM Administration Heparin Sodium (Beef Lung) 5,000 unit 10/28/20 15:30 10/29/20 06:31 Heparin 5,000 Unit/Ml Inj 1 Ml SUBCUT 5,000 unit Q8H JM Administration Potassium Chloride/Sodium Chloride 20 meq in 1,000 mls @ 50 mls/hr 10/28/20 14:47 10/29/20 09:21 Sodium Chlor 0.9% + Kcl 20 Meq IV 0 mls/hr .Q20H JM Infusion Norepinephrine Bitartrate 4 mg 254 mls @ 0 mls/hr 10/28/20 18:40 10/29/20 03:12 / Dextrose IV 2 mcg/min .Q0M JM 7.6 mls/hr Titration Protocol Per Protocol Piperacillin Sod/Tazobactam 50 mls @ 12.5 mls/hr 10/29/20 11:00 10/29/20 11:07 Sod 3.375 gm/ Sodium Chloride IV 12.5 mls/hr Q12H JM Administration Protocol As Directed Sodium Bicarbonate 50 meq/ 1,050 mls @ 100 mls/hr 10/29/20 08:00 10/29/20 08:13 Sodium Chloride IV 100 mls/hr .[id number] JM Administration Insulin Aspart 0 unit 10/28/20 18:00 10/29/20 11:57 Insulin Aspart 100 Unit/1 Ml SUBCUT 2 unit WM&BEDTIME JM Administration Protocol Metoprolol Tartrate 25 mg 10/28/20 18:00 10/29/20 09:26 Metoprolol Tartrate 25 Mg Tablet PO Not Given BID JM Pantoprazole Sodium 40 mg 10/29/20 09:00 10/29/20 09:[address] 40 Mg Tablet PO 40 mg DAILY JM Administration Senna/Docusate Sodium 1 tab 10/28/20 18:00 10/29/20 09:19 Sennosides-Docusate Tablet PO 1 tab BID JM Administration Sodium Bicarbonate 650 mg 10/28/20 15:00 10/28/20 20:09 Sodium Bicarbonate 650 Mg Tablet PO 650 mg TID JM Administration Trazodone HCl 100 mg 10/28/20 21:00 10/28/20 20:09 Trazodone 100 Mg Tablet PO 100 mg BEDTIME JM Administration PFSH Acute PFSH: Medical History Anemia, chronic disease Atrial fibrillation CHF (congestive heart failure) CKD (chronic kidney disease) stage 4, GFR 15-29 ml/min Coronary artery disease Diabetes HTN (hypertension) Morbid obesity Pacemaker Surgical History H/O tricuspid valve annuloplasty Hx of CABG S/P cholecystectomy S/P left atrial appendage ligation S/P Maze operation for atrial fibrillation Status post mitral valve annuloplasty Family History Other CAD (coronary artery disease) Diabetes Social History Smoking and tobacco status: never smoked Alcohol intake: never Substance/Drug Use: never Lives independently: Yes Marital status: Single Vitals/I&O/Wt Last Vital Signs Temp 98.4 F 10/29/20 03:50 Pulse 98 10/29/20 16:00 Resp 26 H 10/29/20 16:00 BP 89/63 10/29/20 16:00 Pulse Ox 94 10/29/20 16:00 10/29/20 10/29/20 10/29/20 06:59 14:59 22:59 Intake Total 139.04 / 591.70 1250 / 1250 Output Total 100 / 100 Balance 39.04 / 491.70 1250 / 1250 Weight last 48 hrs Weight 83.915 kg Weight 83.915 kg Physical Exam Const: COMMON NORMALS: no acute distress, patient oriented x3 and alert GENERAL APPEARANCE: cooperative ORIENTATION/CONSCIOUSNESS: Yes awake Resp: COMMON NORMALS: clear to auscultation bilaterally AUSCULTATION: clear to auscultation bilaterally Cardio: COMMON NORMALS: S1 normal heart sound present and S2 normal heart sound present HEART SOUNDS: S1 normal heart sound present and S2 normal heart sound present GI: AUSCULTATION: Yes normoactive bowel sounds Extremity: GENERAL: Yes edema Neuro: COMMON NORMALS: patient oriented x3 SENSORIUM/ORIENTATION: Yes alert Skin: COMMON NORMALS: no rashes or lesions noted GENERAL SKIN EXAM: no rashes or lesions noted Urinary Catheter Management^: Slater: Cath Placed During This Visit: yes Reason for Continuing Indwelling Catheter: Accurate Measurement of Urinary Output in Critically Ill Patients Urinary Catheter Date of Insertion: 10/28/20 Urinary Catheter Time of Insertion: 12:10 Data Micro: Micro: Microbiology 10/28/20 12:01 Blood Culture - Pr eliminary Blood NEGATIVE TO LARRY E 10/28/20 13:22 Blood Culture - Pr eliminary Blood Gram positive c occi A&P Assessment and plan (1) Acute kidney injury superimposed on chronic kidney disease: Pt has chronic kidney disease with baseline creatinine around 2, her SANDY is due to pre-renal. Check urine studies, continue iv fluids, hold diuretics for now. No indication for any dialysis at this time. Will monitor urine output closely Status: Acute (2) Metabolic acidosis: Will put her on d5w with 3 amps of sodium bicarb at 150ml/hr Status: Acute (3) Hypotension: Cont ivf so that we can titrate her off of levophed Status: Acute Qualifiers: Hypotension type: unspecified hypotension type Qualified Code(s): I95.9 - Hypotension, unspecified (4) Hyponatremia: will monitor Status: Acute (5) CHF (congestive heart failure): Hold diuretics due to renal failure Status: Acute Qualifiers: Heart failure type: systolic Heart failure chronicity: chronic Qualified Code(s): I50.22 - Chronic systolic (congestive) heart failure Consult Attestations Medical Necessity Statement: renal failure Coding Level of Care Code Acute [employer] Supervisor for [facility] Fwd Diagnoses Acute kidney injury superimposed on chronic kidney disease N17.9; N18.9 Metabolic acidosis E87.2 Hypotension I95.9 Hypotension type: unspecified hypotension type Hyponatremia E87.1 CHF (congestive heart failure) I50.22 Heart failure type: systolic Heart failure chronicity: chronic
[2020-10-29 18:44] LABS: Glucose Point of Care 178 mg/dL (70-110)
[2020-10-29 20:55] LABS: Glucose Point of Care 164 mg/dL (70-110)
[2020-10-29] MEDS: atorvastatin 40 mg Tablet 20 MG PO (21:03)
[2020-10-29] MEDS: acetaminophen 325 mg Tablet 650 MG PO (21:03)
[2020-10-29] MEDS: trazodone 100 mg Tablet PO (21:05)
[2020-10-30] VITALS (48 sets, daily range): BP systolic 85–111; BP diastolic 58–90; PULSE 79–115; RESP 13–41; TEMP 36.5–36.8; O2SAT 89–95; BMI 33.1
[2020-10-30] MEDS: hyDROXYzine 25 mg Capsule PO ×2 (01:38→23:45)
[2020-10-30 04:43] LABS: Basophils % 0.2 %; Eosinophils # 0.3 10^3/uL (0.0-0.8); Eosinophils % 2.3 %; Hematocrit 32.3 % (37.0-47.0); Hemoglobin 10.1 g/dL (11.5-15.3); Lymphocytes # 0.7 10^3/uL (0.8-4.8); Lymphocytes % 6.3 %; Mean Corpuscular HGB Conc 31.3 g/dL (30.0-36.0); Mean Corpuscular Hemoglobin 23.3 pg (28.0-34.0); Mean Corpuscular Volume 74.4 fL (81-99); Mean Platelet Volume 11.5 fL (7.4-10.4); Monocytes # 0.9 10^3/uL (0.2-0.9); Monocytes % 8.2 %; Neutrophils % 81.5 %; Nucleated Red Blood Cells % 0 %; Platelet Count 150 10^3/cmm (130-400); Red Blood Count 4.34 10^6/uL (4.1-5.3); Red Cell Distribution Width 18.8 % (12.1-15.1)
[2020-10-30 05:04] LABS: Alanine Aminotransferase < 5 U/L (0-33); Albumin Level 2.7 g/dL (3.5-5.2); Alkaline Phosphatase 92 IU/L (35-105); Aspartate Amino Transferase 7 U/L (0-32); Calcium 7.9 mg/dL (8.5-10.5); Carbon Dioxide 21 mmol/L (22-29); Chloride 87 mmol/L (98-107); Globulin 2.9 g/dL (1.3-4.6); Glomerular Filtration Rate 13.6 mL/min (90-130); Glucose 153 mg/dL (65-115); Magnesium 2.6 mg/dL (1.7-2.3); Osmolality Calculated 300 mOsm/kg (285-295); Phosphorus 6.2 mg/dL (2.5-4.5); Sodium 128 mmol/L (136-145); Total Bilirubin 0.5 mg/dL (0.15-1.2); Total Protein 5.6 g/dL (6.6-8.7)
[2020-10-30 05:07] LABS: Blood Urea Nitrogen 100 mg/dL (8-23)
[2020-10-30 07:42] LABS: Glucose Point of Care 166 mg/dL (70-110)
[2020-10-30] MEDS: heparin 5,000 unit/mL INJ 1 mL 5000 UNIT SUBCUT ×3 (07:48→23:21)
[2020-10-30] MEDS: piperacillin-tazobactam 3.375 GM in sodium chloride 0.9% (plus) 50 ML IV ×2 (09:11→23:21)
[2020-10-30] MEDS: metoprolol tartrate 25 mg Tablet PO ×2 (09:11→17:16)
[2020-10-30] MEDS: clotrimazole 1% cream 30 gm 1 APPLIC TOPICAL ×2 (09:11→17:24)
[2020-10-30] MEDS: amiodarone 200 mg Tablet PO (09:11)
[2020-10-30] MEDS: pantoprazole DR 40 mg Tablet PO (09:11)
[2020-10-30] MEDS: sennosides-docusate Tablet 1 TAB PO ×2 (09:18→17:17)
--- NOTE | 2020-10-30 10:16 | P.PN_ITS ---
Subjective Subjective: Interval history: Overnight had 150 mL urine output, blood pressure remains low normal, has remained off pressor support, IV fluid hydration continues. Some improvement in renal function noted this morning, decreasing leukocytosis. Sitting in recliner by bedside earlier this morning, continues to require frequent encouragement even for simple tasks, has eaten a little better today. Seen several times throughout the day including a couple of times this afternoon. [id number] came to visit this afternoon. Decreased rate of IV fluid hydration per nephrology. Medications: Reviewed: Yes Medication Review Details: Active Medications Generic Name Dose Route Start Last Admin Trade Name Freq PRN Reason Stop Dose Admin Acetaminophen 650 mg 10/28/20 14:47 10/29/20 21:03 Acetaminophen 32 5 Mg Tablet PO 650 mg Q6H PRN Administration MILD PAIN Amiodarone HCl 200 mg 10/29/20 09:00 10/30/20 09:11 Amiodarone 200 M g Tablet PO 200 mg DAILY JM Administration Atorvastatin Calci um 20 mg 10/28/20 21:00 10/29/20 21:03 Atorvastatin 40 Mg Tablet PO 20 mg BEDTIME JM Administration Clotrimazole 1 applic 10/28/20 18:00 10/30/20 09:11 Clotrimazole 1% Cream 30 Gm TOPICAL 1 applic BID JM Administration Dextrose 25 ml 10/28/20 14:47 Dextrose 50% Syr luma 50 Ml IVP ONCE PRN hypoglycemia prot ocol Protocol Dextrose 50 ml 10/28/20 14:47 Dextrose 50% Syr luma 50 Ml IVP PRN PRN hypoglycemia prot ocol Protocol Glucagon 1 mg 10/28/20 14:47 Glucagon 1 Mg/Ml Inj 1 Ml IM ONCE PRN Adult Acute Hypog lycemia Prot. Protocol Heparin Sodium (Be ef Lung) 5,000 unit 10/28/20 15:30 10/30/20 07:48 Heparin 5,000 Un it/Ml Inj 1 Ml SUBCUT 5,000 unit Q8H JM Administration Hydroxyzine Pamoat e 25 mg 10/28/20 14:47 10/30/20 01:38 Hydroxyzine 25 M g Capsule PO 25 mg TID PRN Administration Itching Dextrose 500 mls @ 100 mls /hr 10/28/20 14:47 D5w IV ONCE PRN Adult Acute Hypog lycemia Prot Protocol Potassium Chloride /Sodium Chloride 20 meq in 1,000 m ls @ 50 mls/hr 10/28/20 14:47 10/29/20 09:21 Sodium Chlor 0.9 % + Kcl 20 Meq IV 0 mls/hr .Q20H JM Infusion Norepinephrine Bit artrate 4 mg 254 mls @ 0 mls/h r 10/28/20 18:40 10/29/20 03:12 / Dextrose IV 2 mcg/min .Q0M JM 7.6 mls/hr Titration Protocol Per Protocol Piperacillin Sod/T azobactam 50 mls @ 12.5 mls /hr 10/29/20 11:00 10/30/20 09:11 Sod 3.375 gm/ So dium Chloride IV 12.5 mls/hr Q12H JM Administration Protocol As Directed Sodium Bicarbonate 50 meq/ 1,050 mls @ 100 m ls/hr 10/29/20 08:00 10/30/20 04:50 Sodium Chloride IV 100 mls/hr .[id number] JM Infusion Insulin Aspart 0 unit 10/28/20 18:00 10/30/20 07:49 Insulin Aspart 1 00 Unit/1 Ml SUBCUT 4 unit WM&BEDTIME JM Administration Protocol Metoprolol Tartrat e 25 mg 10/28/20 18:00 10/30/20 09:11 Metoprolol Tartr ate 25 Mg Tablet PO 25 mg BID JM Administration Morphine Sulfate 2 mg 10/28/20 14:47 Morphine 4 Mg/Ml Sdv 1 Ml IVP Q4H PRN SEVERE PAIN Ondansetron HCl 4 mg 10/28/20 14:47 Ondansetron 2 Mg /Ml Sdv 2 Ml IVP Q6H PRN NAUSEA AND VOMITI NG Pantoprazole Sodiu m 40 mg 10/29/20 09:00 10/30/20 09:[address] 40 Mg Tablet PO 40 mg DAILY JM Administration Senna/Docusate Sod ium 1 tab 10/28/20 18:00 10/30/20 09:18 Sennosides-Docus ate Tablet PO 1 tab BID JM Administration Sodium Bicarbonate 650 mg 10/28/20 15:00 10/28/20 20:09 Sodium Bicarbona te 650 Mg Tablet PO 650 mg TID JM Administration Trazodone HCl 100 mg 10/28/20 21:00 11/28/20 21:05 Trazodone 100 Mg Tablet PO 100 mg BEDTIME JM Administration Penicillins Allergy (Verified 05/05/20 08:39) Unknown Vitals/I&O/Wt Last Vital Signs Temp 97.9 F 10/30/20 08:00 Pulse 103 H 10/30/20 08:00 Resp 28 H 10/30/20 08:00 BP 96/66 10/30/20 08:00 Pulse Ox 93 10/30/20 07:30 10/29/20 10/30/20 10/30/20 22:59 06:59 14:59 Intake Total 1173.333 / 2423.333 1308.333 / 3731.666 250 / 250 Output Total 550 / 550 Balance 623.333 / 6745.485 7522.333 / 3181.666 250 / 250 Weight last 48 hrs Weight 84.822 kg Weight 83.915 kg Weight 83.915 kg Physical Exam Const: COMMON NORMALS: no acute distress, patient oriented x3 and alert GENERAL APPEARANCE: cooperative, comfortable, ill appearing, frail appearing and appears older than stated age NUTRITIONAL APPEARANCE: obese morbidly obese ORIENTATION/CONSCIOUSNESS: Yes awake OTHER: -appears fatigued, sitting in recliner by bedside HENMT: COMMON NORMALS: normocephalic, atraumatic and hearing grossly normal bilaterally HEAD & SCALP: normocephalic and atraumatic MOUTH: moist mucous membranes abnormal Details: parched Eye: COMMON NORMALS: Equal, round and reactive pupils present, EOMs intact bilaterally and conjunctivae normal CONJUNCTIVA: Yes conjunctivae normal PUPIL: Yes Equal, round and reactive pupils present Neck/C-Spine: COMMON NORMALS: full ROM GENERAL: Yes normal visual inspection and Yes trachea midline Chest: OTHER: -healed sternotomy scar Resp: COMMON NORMALS: normal respiratory effort, No retractions and No use of accessory muscles EFFORT & INSPECTION: Yes able to speak in complete sentences, Yes symmetric chest movement and Yes tachypneic AUSCULTATION: dimi nished lung sounds OTHER: -on RA Cardio: COMMON NORMALS: regular rate, S1 normal heart sound present, S2 normal heart sound present and No murmurs present (Cardio) RATE: regular rate RHYTHM: abnormal rhythm irregularly irregular HEART SOUNDS: S1 normal heart sound present and S2 normal heart sound present OTHER: -intermittently irregular rhythm on telemetry vs. paced rhythm -low normal BP GI: COMMON NORMALS: Normal to inspection, nondistended, normoactive bowel sounds present, Soft to palpation and non-tender INSPECTION: Yes central obesity PALPATION: Yes Soft to palpation : BLADDER/KIDNEY EXAM: Yes catheter in place Catheter type (Female): urethral Extremity: COMMON NORMALS: normal to inspection, full ROM and no pedal edema NARRATIVE EXTREMITY EXAM: -1-2+ pitting edema of bilateral LEs; Tubigrip socks on Neuro: COMMON NORMALS: patient oriented x3, moves all extremities, no focal motor deficits and no sensory deficits noted SENSORIUM/ORIENTATION: Yes alert OTHER: -generally very weak Psych: COMMON NORMALS: mental status grossly normal, Normal thought process present, cooperative and speech normal SPEECH: Yes normal speech MOOD & AFFECT: Yes Flat affect present THOUGHT PROCESS: Normal thought process present Skin: COMMON NORMALS: no rashes or lesions noted, no jaundice, no petechiae and no mottling GENERAL SKIN EXAM: no rashes or lesions noted Urinary Catheter Management^: Sltaer: Cath Placed During This Visit: yes Reason for Continuing Indwelling Catheter: Accurate Measurement of Urinary Output in Critically Ill Patients Urinary Catheter Date of Insertion: 10/28/20 Urinary Catheter Time of Insertion: 12:10 Data : 10/30/20 04:06 10/30/20 13:00 Micro: Microbiology 10/28/20 13:22 Blood Culture - Preliminary Blood Coagulase negativ staphylococc 10/28/20 12:01 Blood Culture - Preliminary Blood NEGATIVE TO DATE A&P Assessment and plan (1) SANDY (acute kidney injury): -SANDY superimposed on CKD stage IV -Baseline creatinine appears to be around 2 -Secondary to dehydration and poor oral intake -Has Slater catheter in place, continue to monitor urine output closely -Continue to monitor renal function, renally dose meds, avoid nephrotoxins -Nephrology evaluation requested due to continued impairment, oliguria -On continued IV fluid hydration, bicarb drip -Hypokalemia, hyponatremia, elevated anion gap metabolic acidosis; ongoing replacement of electrolytes, close monitoring of electrolytes Status: Acute (2) Hypotension: -Noted to be hypotensive likely secondary to degree of dehydration with minimal oral intake over the past several weeks -on IVF with caution secondary to underlying CHF due to risk for fluid overload -continue to hold diuretics and oral antihypertensives for now -Close monitoring of vital signs especially blood pressure -Currently meets sepsis criteria as evidenced by hypotension, tachypnea, leukocytosis; no clear source of infection at this time as chest x-ray unremarkable, urinalysis shows trace bacteria but is otherwise benign, CT scan o f the abdomen and pelvis is also unremarkable for source of infection. Lactic acid is within normal limits, she is currently afebrile. Due to overall ill appearance, hypotension and underlying comorbidities, will cover with broad- spectrum IV antibiotics at this time -negative rapid COVID-19 testing -albumin x 1 dose; additional doses as needed Status: Acute Qualifiers: Hypotension type: unspecified hypotension type Qualified Code(s): I95.9 - Hypotension, unspecified (3) Hypokalemia: -Secondary to poor oral intake -Replacement ongoing -continue to trend K Status: Acute (4) CKD (chronic kidney disease) stage 4, GFR 15-29 ml/min: -Follows up with Dr. Swain as an outpatient Status: Chronic (5) CHF (congestive heart failure): -Clinically she does have some evidence of edema in her bilateral lower extremities part of which is chronic; this seems more likely secondary to poor nutritional status and to acutely decompensated CHF -Echo: EF=55%, moderate pulmonary HTN (65), flattened septum consistent with RV volume overload, biatrial enlargement, moderate-severe MR, moderate -hold diuretics for now as she appears clinically dehydrated and intravascularly depleted -continue to monitor vital signs -Telemetry monitoring -BNP quite elevated (>10,000), no evidence of effusions on x-ray though noted to have small pericardial effusion, small right pleural effusion, small amount of ascites on CT scan of the abdomen and pelvis -follows up with Dr. Pavon Status: Acute Qualifiers: Heart failure chronicity: chronic Heart failure type: systolic Qualified Code(s): I50.22 - Chronic systolic (congestive) heart failure (6) Generalized weakness: -Likely multifactorial given physical deconditioning, dehydration, poor oral intake, electrolyte abnormalities, impaired renal function -Strict fall precautions -PT/OT/ST evaluations appreciated; participation limited due to lack of motivation Status: Acute (7) HTN (hypertension): -hold oral antihypertensives secondary to hypotension Status: Chronic Qualifiers: Hypertension type: essential hypertension Qualified Code(s): I10 - Essential (primary) hypertension (8) Diabetes: -last A1c at goal (6.2) -Accucheks, ISS, hold scheduled insulin given poor oral intake; hold oral hypoglycemic agents, hypoglycemia precautions -cardiac consistent carb diet (mechanical soft) as tolerated Status: Chronic Qualifiers: Chronic kidney disease stage: stage 4 (severe) Diabetes mellitus complication detail: with chronic kidney disease Diabetes mellitus complication status: with kidney complications Diabetes mellitus parts counterman insulin use: with parts counterman use Diabetes mellitus type: type 2 Qualified Code(s): E11.22 - Type 2 diabetes mellitus with diabetic chronic kidney disease; N18.4 - Chronic kidney disease, stage 4 (severe); Z79.4 - buttermaker continuous churn (current) use of insulin Additional A&P Information -hx of severe MR and TR s/p mitral and tricuspid valve repair, Maze procedure: done at [facility] in 12/2018 -Morbid obesity: BMI-33 kg/m2 though overall nutrition status is quite poor -hx of PE; on AC with Xarelto; hold for now -CAD s/p CABG -Chronic atrial fibrillation; on AC with Xarelto, digoxin discontinued by cardio, on Amiodarone -has dual chamber pacemaker in place -HTN -Chronic normocytic anemia; baseline Hg around 9-11 -Affect seems to be quite depressed, may benefit from formal psychiatry evaluation. Depression seems to be playing a role in terms of her lack of participation in therapy, out of bed activity and even simple tasks such as feeding herself or answering her phone -GI ppx with PPI -DVT ppx with heparin -Dispo: needs SNF placement, agreeable. Previously living at home alone with services and family support. In light of increased generalized weakness, poor oral intake with significant dehydration as noted above, and ability for 24/7 supervision at this time she needs to be in a monitored environment -Code status: DNR, ok with intubation; discussed with patient and brother at bedside -guarded prognosis due to underlying comorbidities, hypotension, dehydration, poor oral intake -continue ICU care due to low threshold for decompensation Attestations Medical Necessity Statement*: Patient requires hospitalization for continued IV fluid hydration secondary to significant degree of dehydration with resulting electrolyte abnormalities and acute renal impairment. Time Spent in Patient Care: 16 - 35 minutes (>than 50% of time spent in counselling and/or direct pt care on unit) . Coding Level of Care Code Acute Inclusion Specialist for [facility] Fwd Exam Comprehensive Diagnoses SANDY (acute kidney injury) N17.9 Hypotension I95.9 Hypotension type: unspecified hypotension type Hypokalemia E87.6 CKD (chronic kidney disease) stage 4, GFR 15-29 ml/min N18.4 CHF (congestive heart failure) I50.22 Heart failure chronicity: chronic Heart failure type: systolic Generalized weakness R53.1 HTN (hypertension) I10 Hypertension type: essential hypertension Diabetes E11.22; N18.4; Z79.4 Chronic kidney disease stage: stage 4 (severe) Diabetes mellitus complication detail: with chronic kidney disease Diabetes mellitus complication status: with kidney complications Diabetes mellitus intermediate insulin use: with intermediate use Diabetes mellitus type: type 2
[2020-10-30 11:26] LABS: Glucose Point of Care 236 mg/dL (70-110)
[2020-10-30] MEDS: lidocaine 1% 5 ML in potassium chloride premix 100 ML 25 ML IV ×2 (11:30→21:21)
[2020-10-30 12:07] LABS: Urine Creatinine 65 mg/dL (28-217); Urine Random Sodium 20 mmol/L
[2020-10-30 12:44] LABS: Urea Nitrogen,Urine Random 413 mg/dL
[2020-10-30 13:34] LABS: Anion Gap 19.1 (5-19); Calcium 8.3 mg/dL (8.5-10.5); Carbon Dioxide 25 mmol/L (22-29); Chloride 86 mmol/L (98-107); Glomerular Filtration Rate 15.1 mL/min (90-130); Glucose 173 mg/dL (65-115); Osmolality Calculated 299 mOsm/kg (285-295); Potassium 3.1 mmol/L (3.5-5.1); Sodium 127 mmol/L (136-145)
--- NOTE | 2020-10-30 13:51 | P.PN_ITS ---
Subjective Subjective: Interval history: I am seeing her in follow up for her renal failure. She is off of levophed, BP & urine output improving. No nausea or vomiting or diarrhea Medications: Reviewed: Yes Vitals/I&O/Wt Last Vital Signs Temp 97.9 F 10/30/20 08:00 Pulse 101 H 10/30/20 11:30 Resp 31 H 10/30/20 11:30 BP 103/62 10/30/20 11:30 Pulse Ox 93 10/30/20 07:30 10/29/20 10/30/20 10/30/20 22:59 06:59 14:59 Intake Total 1173.333 / 2423.333 1308.333 / 3731.666 250 / 250 Output Total 550 / 550 Balance 623.333 / 1468.801 7954.333 / 3181.666 250 / 250 Weight last 48 hrs Weight 84.822 kg Weight 84.822 kg Weight 83.915 kg Physical Exam Const: COMMON NORMALS: no acute distress and patient oriented x3 GENERAL APPEARANCE: cooperative Resp: AUSCULTATION: rales Cardio: COMMON NORMALS: S1 normal heart sound present and S2 normal heart sound present HEART SOUNDS: S1 normal heart sound present and S2 normal heart sound present GI: AUSCULTATION: Yes normoactive bowel sounds Extremity: GENERAL: Yes edema Neuro: COMMON NORMALS: patient oriented x3 Skin: COMMON NORMALS: no rashes or lesions noted GENERAL SKIN EXAM: no rashes or lesions noted Urinary Catheter Management^: Slater: Cath Placed During This Visit: yes Reason for Continuing Indwelling Catheter: Accurate Measurement of Urinary Output in Critically Ill Patients Urinary Catheter Date of Insertion: 10/28/20 Urinary Catheter Time of Insertion: 12:10 Data : 10/30/20 04:06 10/30/20 13:00 Micro: Microbiology 10/30/20 13:06 Blood Culture - Preliminary Blood SPECIMEN COLLECTED 10/30/20 13:00 Blood Culture - Preliminary Blood SPECIMEN COLLECTED 10/28/20 13:22 Blood Culture - Preliminary Blood Coagulase negativ staphylococc 10/28/20 12:01 Blood Culture - Preliminary Blood NEGATIVE TO DATE A&P Assessment and plan (1) Acute kidney injury superimposed on chronic kidney disease: Kidney function improving, continue ivf, will decreease rate to 100ml/hr, will monitor urine output closely.Continue to hold diuretics. Avoid new nephrotoxins. No indication for dialysis at this time Status: Acute (2) Hypotension: Not requiring levophed today, continue ivf Status: Acute Qualifiers: Hypotension type: unspecified hypotension type Qualified Code(s): I95.9 - Hypotension, unspecified (3) Metabolic acidosis: Responding well to bicarb drip Status: Acute (4) Hyponatremia: Improving with ivf Status: Acute (5) CHF (congestive heart failure): Hold diuretics due to renal failure Status: Acute Qualifiers: Heart failure type: systolic Heart failure chronicity: chronic Qualified Code(s): I50.22 - Chronic systolic (congestive) heart failure (6) Anemia: Follow hb Status: Acute Attestations Medical Necessity Statement*: SANDY Coding Level of Care Code Acute Advanced Practice Professional for [facility] Fwd Diagnoses Acute kidney injury superimposed on chronic kidney disease N17.9; N18.9 Hypotension I95.9 Hypotension type: unspecified hypotension type Metabolic acidosis E87.2 Hyponatremia E87.1 CHF (congestive heart failure) I50.22 Heart failure type: systolic Heart failure chronicity: chronic Anemia D64.9
[2020-10-30 14:34] LABS: Blood Urea Nitrogen 99 mg/dL (8-23)
--- NOTE | 2020-10-30 14:59 | USCV_ITS ---
Lizzie Pro Age: 65 Gender: F : 1955 Exam Date: 10/30/2020 15:09 Ordering Phys: Vianey Silva MD Technologist: Danelle Gutierrez Exam Location: [facility] – [place], [place] Indication: Hypotension, H/o CHF BP: / HR: Rhythm: Atrial fibrillation Technical Quality: Fair MEASUREMENTS (Male / Female) Normal Values 2D ECHO LV Diastolic Diameter PLAX 3.6 cm 4.2 - 5.9 / 3.9 - 5.3 cm LV Systolic Diameter PLAX 2.6 cm LV Chamber Size 4.1 cm IVS Diastolic Thickness 1.4 cm 0.6 - 1.0 / 0.6 - 0.9 cm IVS Systolic Thickness 1.6 cm LVPW Diastolic Thickness 1.1 cm 0.6 - 1.0 / 0.6 - 0.9 cm LVPW Systolic Thickness 1.5 cm RV Chamber Size 3.1 cm LV Ejection Fraction 2D Teich 54.5 % LV Ejection Fraction MOD 2C 47.0 % LV Ejection Fraction 2C AL 48.3 % LA Diameter 5.5 cm LA Width 3.8 cm LA Height 6.1 cm RA Width 3.5 cm RA Height 5.1 cm M-MODE LV Diastolic Diameter MM 4.1 cm 4.2 - 5.9 / 3.9 - 5.3 cm LV Systolic Diameter MM 2.6 cm LV Ejection Fraction MM Teich 67.8 % IVS Diastolic Thickness MM 1.2 cm 0.6 - 1.0 / 0.6 - 0.9 cm IVS Systolic Thickness MM 1.3 cm LVPW Diastolic Thickness MM 1.1 cm 0.6 - 1.0 / 0.6 - 0.9 cm LVPW Systolic Thickness MM 1.7 cm RV Diastolic Diameter MM 2.5 cm Aortic Annulus Diameter 4.6 cm LA Ao Ratio MM 1.2 MV E Point Septal Separation 0.5 cm DOPPLER AV Peak Velocity 90.3 cm/s LVOT Peak Velocity 85.0 cm/s MV Peak Velocity 217.0 cm/s MV Area PHT 1.3 cm squared MV E' Velocity 202.5 cm/s TR Peak Velocity 302.1 cm/s TR Peak Gradient 36.5 mmHg TR Mean Velocity 234.9 cm/s TR Mean Gradient 23.2 mmHg TR Velocity Time Integral 99.9 cm TV Peak E Velocity 151.0 cm/s Right Atrial Pressure 15.0 mmHg Pulmonary Artery Systolic Pressu 51.5 mmHg PV Peak Velocity 91.0 cm/s RV Acceleration Time 0.0 s RV Ejection Time 0.2 s RV AcT/ET 0.2 FINDINGS Left Ventricle Small left ventricular cavity size. Normal left ventricular cavity size. Left ventricular ejection fraction is estimated at 55 %. Flattened septum in diastole consistent with right ventricle volume overload. Right Ventricle Severely increased right ventricular size. Severely decreased right ventricular systolic function. Moderate pulmonary hypertension, RVSP 65 mmHg. Right Atrium Severely increased right atrial size. Left Atrium Moderately increased left atrial size. Mitral Valve Severely thickened mitral valve. Severe mitral annular calcification. No mitral valve stenosis. Moderate to severe mitral valve regurgitation. Aortic Valve Severe aortic valve calcification. Moderate aortic valve stenosis, mean gradient, aortic valve is not well-visualized therefore cannot assess gradient on aortic valve area however appears to be moderately stenotic. Tricuspid Valve Structurally normal tricuspid valve without significant stenosis or regurgitation. Pulmonary artery systolic pressure is normal. Pulmonic Valve Structurally normal pulmonic valve without significant stenosis. There is no pulmonic regurgitation. Pericardium Normal pericardium without effusion. Aorta Normal ascending aorta dimension. CONCLUSIONS 1-Small left ventricular cavity size. Normal left ventricular cavity size. Left ventricular ejection fraction is estimated at 55 %. Flattened septum in diastole consistent with right ventricle volume overload. 2-Severely increased right ventricular size. Severely decreased right ventricular systolic function. Moderate pulmonary hypertension, RVSP 65 mmHg. 3-Severely increased right atrial size. 4-Moderately increased left atrial size. 5-Severely thickened mitral valve. Severe mitral annular calcification. No mitral valve stenosis. Moderate to severe mitral valve regurgitation. 6-Severe aortic valve calcification. Moderate aortic valve stenosis, mean gradient, aortic valve is not well-visualized therefore cannot assess gradient on aortic valve area however appears to be moderately stenotic. 7-Structurally normal tricuspid valve without significant stenosis or regurgitation. Pulmonary artery systolic pressure is normal. 8-There is no pericardial effusion. 9-Right atrial pressure is around 20 mm of mercury. 10-No significant change since the prior echocardiogram study of 09/10/20. Kip Kwon MD (Electronically Signed) Final Date: 30 October 2020 19:01 S
--- NOTE | 2020-10-30 15:48 | PC.SLP ---
The pt refused reassessment of swallowing at this time. She does not want to try oral intake.
[2020-10-30 17:02] LABS: Glucose Point of Care 166 mg/dL (70-110)
[2020-10-30] MEDS: sodium bicarbonate 50 MEQ in sodium chloride 0.45% 1,000 ML 100 MEQ IV (21:04)
[2020-10-30 21:16] LABS: Glucose Point of Care 211 mg/dL (70-110)
[2020-10-30] MEDS: atorvastatin 40 mg Tablet 20 MG PO (21:19)
[2020-10-30] MEDS: trazodone 100 mg Tablet PO (21:20)
[2020-10-31] VITALS (34 sets, daily range): BP systolic 88–111; BP diastolic 49–79; PULSE 84–143; RESP 13–51; TEMP 36.5–36.9; O2SAT 89–100
[2020-10-31 03:33] LABS: Basophils % 0.3 %; Eosinophils # 0.2 10^3/uL (0.0-0.8); Eosinophils % 2.4 %; Hematocrit 33.9 % (37.0-47.0); Hemoglobin 10.4 g/dL (11.5-15.3); Lymphocytes # 0.7 10^3/uL (0.8-4.8); Lymphocytes % 7.6 %; Mean Corpuscular HGB Conc 30.7 g/dL (30.0-36.0); Mean Corpuscular Hemoglobin 23.2 pg (28.0-34.0); Mean Corpuscular Volume 75.5 fL (81-99); Monocytes # 0.9 10^3/uL (0.2-0.9); Monocytes % 9.1 %; Neutrophils # 7.47 10^3/uL (1.8-7.7); Neutrophils % 78.5 %; Nucleated Red Blood Cells % 0 %; Platelet Count 169 10^3/cmm (130-400); Red Blood Count 4.49 10^6/uL (4.1-5.3); Red Cell Distribution Width 19.2 % (12.1-15.1); White Blood Count 9.5 10^3/uL (4.0-10.0)
[2020-10-31 03:57] LABS: Alanine Aminotransferase < 5 U/L (0-33); Albumin Level 2.6 g/dL (3.5-5.2); Alkaline Phosphatase 95 IU/L (35-105); Anion Gap 21.5 (5-19); Aspartate Amino Transferase 9 U/L (0-32); Calcium 8.5 mg/dL (8.5-10.5); Carbon Dioxide 23 mmol/L (22-29); Chloride 88 mmol/L (98-107); Globulin 3.2 g/dL (1.3-4.6); Glomerular Filtration Rate 15.7 mL/min (90-130); Glucose 165 mg/dL (65-115); Magnesium 2.4 mg/dL (1.7-2.3); Osmolality Calculated 301 mOsm/kg (285-295); Phosphorus 4.8 mg/dL (2.5-4.5); Potassium 3.5 mmol/L (3.5-5.1); Sodium 129 mmol/L (136-145); Total Bilirubin 0.6 mg/dL (0.15-1.2); Total Protein 5.8 g/dL (6.6-8.7)
[2020-10-31 03:59] LABS: Blood Urea Nitrogen 96 mg/dL (8-23)
[2020-10-31] MEDS: sodium bicarbonate 50 MEQ in sodium chloride 0.45% 1,000 ML 100 MEQ IV (07:27)
[2020-10-31 07:36] LABS: Glucose Point of Care 192 mg/dL (70-110)
--- NOTE | 2020-10-31 08:12 | PM.PN ---
Subjective Subjective: Interval history: Had 675 mL urine output overnight, remains on IVF, low normal BP, afebrile, on RA. Resolved leukocytosis, continued improvement in renal function and electrolytes. Sitting in chair by bedside, we continue to be diligent about setting a routine for her as she is quite reluctant to do anything including out of bed activity. Continues to be quite irritable and threshold for anger and impulsivity is quite low. Case discussed briefly with nephrology this morning, will give one-time dose of Lasix today and monitor response. Will discontinue IV fluid hydration. Medications: Reviewed: Yes Medication Review Details: Active Medications Generic Name Dose Route Start Last Admin Trade Name Freq PRN Reason Stop Dose Admin Acetaminophen 650 mg 10/28/20 14:47 10/29/20 21:03 Acetaminophen 32 5 Mg Tablet PO 650 mg Q6H PRN Administration MILD PAIN Amiodarone HCl 200 mg 10/29/20 09:00 10/30/20 09:11 Amiodarone 200 M g Tablet PO 200 mg DAILY JM Administration Atorvastatin Calci um 20 mg 10/28/20 21:00 10/30/20 21:19 Atorvastatin 40 Mg Tablet PO 20 mg BEDTIME JM Administration Clotrimazole 1 applic 10/28/20 18:00 10/30/20 17:24 Clotrimazole 1% Cream 30 Gm TOPICAL 1 applic BID JM Administration Dextrose 25 ml 10/28/20 14:47 Dextrose 50% Syr luma 50 Ml IVP ONCE PRN hypoglycemia prot ocol Protocol Dextrose 50 ml 10/28/20 14:47 Dextrose 50% Syr luma 50 Ml IVP PRN PRN hypoglycemia prot ocol Protocol Glucagon 1 mg 10/28/20 14:47 Glucagon 1 Mg/Ml Inj 1 Ml IM ONCE PRN Adult Acute Hypog lycemia Prot. Protocol Heparin Sodium (Be ef Lung) 5,000 unit 10/28/20 15:30 10/30/20 23:21 Heparin 5,000 Un it/Ml Inj 1 Ml SUBCUT 5,000 unit Q8H JM Administration Hydroxyzine Pamoat e 25 mg 10/28/20 14:47 10/30/20 23:45 Hydroxyzine 25 M g Capsule PO 25 mg TID PRN Administration Itching Dextrose 500 mls @ 100 mls /hr 10/28/20 14:47 D5w IV ONCE PRN Adult Acute Hypog lycemia Prot Protocol Potassium Chloride /Sodium Chloride 20 meq in 1,000 m ls @ 50 mls/hr 10/28/20 14:47 10/30/20 21:05 Sodium Chlor 0.9 % + Kcl 20 Meq IV Not Given .Q20H JM Norepinephrine Bit artrate 4 mg 254 mls @ 0 mls/h r 10/28/20 18:40 10/29/20 03:12 / Dextrose IV 2 mcg/min .Q0M JM 7.6 mls/hr Titration Protocol Per Protocol Piperacillin Sod/T azobactam 50 mls @ 12.5 mls /hr 10/29/20 11:00 10/30/20 23:21 Sod 3.375 gm/ So dium Chloride IV 12.5 mls/hr Q12H JM Administration Protocol As Directed Sodium Bicarbonate 50 meq/ 1,050 mls @ 100 m ls/hr 10/29/20 08:00 10/31/20 07:27 Sodium Chloride IV 100 mls/hr .[id number] JM Administration Insulin Aspart 0 unit 10/28/20 18:00 10/30/20 21:20 Insulin Aspart 1 00 Unit/1 Ml SUBCUT 4 unit WM&BEDTIME JM Administration Protocol Metoprolol Tartrat e 25 mg 10/28/20 18:00 10/30/20 17:16 Metoprolol Tartr ate 25 Mg Tablet PO 25 mg BID JM Administration Morphine Sulfate 2 mg 10/28/20 14:47 Morphine 4 Mg/Ml Sdv 1 Ml IVP Q4H PRN SEVERE PAIN Ondansetron HCl 4 mg 10/28/20 14:47 Ondansetron 2 Mg /Ml Sdv 2 Ml IVP Q6H PRN NAUSEA AND VOMITI NG Pantoprazole Sodiu m 40 mg 10/29/20 09:00 10/30/20 09:[address] 40 Mg Tablet PO 40 mg DAILY JM Administration Senna/Docusate Sod ium 1 tab 10/28/20 18:00 10/30/20 17:17 Sennosides-Docus ate Tablet PO 1 tab BID JM Administration Sodium Bicarbonate 650 mg 10/28/20 15:00 10/28/20 20:09 Sodium Bicarbona te 650 Mg Tablet PO 650 mg TID JM Administration Trazodone HCl 100 mg 10/28/20 21:00 10/30/20 21:20 Trazodone 100 Mg Tablet PO 100 mg BEDTIME JM Administration Penicillins Allergy (Verified 05/05/20 08:39) Unknown Vitals/I&O/Wt Last Vital Signs Temp 98.4 F 10/31/20 06:00 Pulse 103 H 10/31/20 06:00 Resp 21 H 10/31/20 06:00 BP 89/66 10/31/20 06:00 Pulse Ox 92 10/31/20 06:00 10/30/20 10/31/20 10/31/20 22:59 06:59 14:59 Intake Total 400 / 1511.667 440 / 4074.203 7817.333 / 1038.333 Output Total 500 / 1050 675 / 1725 Balance -100 / 461.667 -235 / 039.523 0260.333 / 1038.333 Weight last 48 hrs Weight 84.822 kg Weight 84.822 kg Weight 83.915 kg Physical Exam Const: COMMON NORMALS: no acute distress, patient oriented x3 and alert GENERAL APPEARANCE: cooperative, comfortable, ill appearing, frail appearing and appears older than stated age NUTRITIONAL APPEARANCE: obese morbidly obese ORIENTATION/CONSCIOUSNESS: Yes awake OTHER: -appears fatigued, sitting in recliner by bedside HENMT: COMMON NORMALS: normocephalic, atraumatic and hearing grossly normal bilaterally HEAD & SCALP: normocephalic and atraumatic MOUTH: moist mucous membranes abnormal Details: parched Eye: COMMON NORMALS: Equal, round and reactive pupils present, EOMs intact bilaterally and conjunctivae normal CONJUNCTIVA: Yes conjunctivae normal PUPIL: Yes Equal, round and reactive pupils present Neck/C-Spine: COMMON NORMALS: full ROM GENERAL: Yes normal visual inspection and Yes trachea midline Chest: OTHER: -healed sternotomy scar Resp: COMMON NORMALS: normal respiratory effort, No retractions and No use of accessory muscles EFFORT & INSPECTION: Yes able to speak in complete sentences, Yes symmetric chest movement and Yes tachypneic AUSCULTATION: diminished lung sounds OTHER: -on RA Cardio: COMMON NORMALS: regular rate, S1 normal heart sound present, S2 normal heart sound present and No murmurs present (Cardio) RATE: regular rate RHYTHM: abnormal rhythm irregularly irregular HEART SOUNDS: S1 normal heart sound present and S2 normal heart sound present OTHER: -intermittently irregular rhythm on telemetry vs. paced rhythm -low normal BP GI: COMMON NORMALS: Normal to inspection, nondistended, normoactive bowel sounds present, Soft to palpation and non-tender INSPECTION: Yes central obesity PALPATION: Yes Soft to palpation : BLADDER/KIDNEY EXAM: Yes catheter in place Catheter type (Female): urethral Extremity: COMMON NORMALS: normal to inspection, full ROM and no pedal edema NARRATIVE EXTREMITY EXAM: -1-2+ pitting edema of bilateral LEs Neuro: COMMON NORMALS: patient oriented x3, moves all extremities, no focal motor deficits and no sensory deficits noted SENSORIUM/ORIENTATION: Yes alert OTHER: -generally very weak Psych: COMMON NORMALS: mental status grossly normal, Normal thought process present, cooperative and speech normal SPEECH: Yes normal speech MOOD & AFFECT: Yes Flat affect present THOUGHT PROCESS: Normal thought process present Skin: COMMON NORMALS: no rashes or lesions noted, no jaundice, no petechiae and no mottling GENERAL SKIN EXAM: no rashes or lesions noted Urinary Catheter Management^: Slater: Cath Placed During This Visit: yes Reason for Continuing Indwelling Catheter: Accurate Measurement of Urinary Output in Critically Ill Patients Urinary Catheter Date of Insertion: 10/28/20 Urinary Catheter Time of Insertion: 12:10 Data : 10/31/20 03:11 10/31/20 03:11 Micro: Microbiology 10/30/20 13:06 Blood Culture - Preliminary Blood SPECIMEN COLLECTED 10/30/20 13:00 Blood Culture - Preliminary Blood SPECIMEN COLLECTED 10/28/20 13:22 Blood Culture - Preliminary Blood Coagulase negativ staphylococc A&P Assessment and plan (1) SANDY (acute kidney injury): -SANDY superimposed on CKD stage IV -Baseline creatinine appears to be around 2 -Secondary to dehydration and poor oral intake -Has Slater catheter in place, continue to monitor urine output closely -Continue to monitor renal function, renally dose meds, avoid nephrotoxins -Nephrology evaluation requested due to continued impairment, oliguria -d/c IVF; encourage oral hydration -Hypokalemia, hyponatremia, elevated anion gap metabolic acidosis; ongoing replacement of electrolytes, close monitoring of electrolytes, improving Status: Acute (2) Hypotension: -Noted to be hypotensive likely secondary to degree of dehydration with minimal oral intake over the past several weeks -on IVF with caution secondary to underlying CHF due to risk for fluid overload -continue to hold diuretics and oral antihypertensives for now -Close monitoring of vital signs especially blood pressure -Currently meets sepsis criteria as evidenced by hypotension, tachypnea, leukocytosis; no clear source of infection at this time as chest x-ray unremarkable, urinalysis shows trace bacteria but is otherwise benign, CT scan of the abdomen and pelvis is also unremarkable for source of infection. Lactic acid is within normal limits, she is currently afebrile. Due to overall ill appearance, hypotension and underlying comorbidities, will cover with broad-spectrum IV antibiotics at this time -negative rapid COVID-19 testing -albumin x 1 dose; additional doses as needed Status: Acute Qualifiers: Hypotension type: unspecified hypotension type Qualified Code(s): I95.9 - Hypotension, unspecified (3) Hypokalemia: -Secondary to poor oral intake -Replacement ongoing -continue to trend K Status: Resolved (4) CKD (chronic kidney disease) stage 4, GFR 15-29 ml/min: -Follows up with Dr. Swain as an outpatient Status: Chronic (5) CHF (congestive heart failure): -Clinically she does have some evidence of edema in her bilateral lower extremities part of which is chronic; this seems more likely secondary to poor nutritional status and to acutely decompensated CHF -Echo: EF=55%, moderate pulmonary HTN (65), flattened septum consistent with RV volume overload, biatrial enlargement, moderate-severe MR, moderate -hold diuretics for now as she appears clinically dehydrated and intravascularly depleted -continue to monitor vital signs -Telemetry monitoring -BNP quite elevated (>10,000), no evidence of effusions on x-ray though noted to have small pericardial effusion, small right pleural effusion, small amount of ascites on CT scan of the abdomen and pelvis -follows up with Dr. Pavon Status: Acute Qualifiers: Heart failure chronicity: chronic Heart failure type: systolic Qualified Code(s): I50.22 - Chronic systolic (congestive) heart failure (6) Generalized weakness: -Likely multifactorial given physical deconditioning, dehydration, poor oral intake, electrolyte abnormalities, impaired renal function -Strict fall precautions -PT/OT/ST evaluations appreciated; participation limited due to lack of motivation Status: Acute (7) HTN (hypertension): -hold oral antihypertensives secondary to hypotension Status: Chronic Qualifiers: Hypertension type: essential hypertension Qualified Code(s): I10 - Essential (primary) hypertension (8) Diabetes: -last A1c at goal (6.2) -Accucheks, ISS, hold scheduled insulin given poor oral intake; hold oral hypoglycemic agents, hypoglycemia precautions -cardiac consistent carb diet (mechanical soft) as tolerated Status: Chronic Qualifiers: Chronic kidney disease stage: stage 4 (severe) Diabetes mellitus complication detail: with chronic kidney disease Diabetes mellitus complication status: with kidney complications Diabetes mellitus long-term insulin use: with long-term use Diabetes mellitus type: type 2 Qualified Code(s): E11.22 - Type 2 diabetes mellitus with diabetic chronic kidney disease; N18.4 - Chronic kidney disease, stage 4 (severe); Z79.4 - terminal operator (current) use of insulin Additional A&P Information -hx of severe MR and TR s/p mitral and tricuspid valve repair, Maze procedure: done at [facility] in 12/2018 -Morbid obesity: BMI-33 kg/m2 though overall nutrition status is quite poor -hx of PE; on AC with Xarelto; hold for now -CAD s/p CABG -Chronic atrial fibrillation; on AC with Xarelto, digoxin discontinued by cardio, on Amiodarone -has dual chamber pacemaker in place -HTN -Chronic normocytic anemia; baseline Hg around 9-11 -Affect seems to be quite depressed, may benefit from formal psychiatry evaluation. Depression seems to be playing a role in terms of her lack of participation in therapy, out of bed activity and even simple tasks such as feeding herself or answering her phone -GI ppx with PPI -DVT ppx with heparin -Dispo: needs SNF placement, agreeable. Previously living at home alone with services and family support. In light of increased generalized weakness, poor oral intake with significant dehydration as noted above, and ability for 24/7 supervision at this time she needs to be in a monitored environment -Code status: DNR, ok with intubation; discussed with patient and brother at bedside -guarded prognosis due to underlying comorbidities, hypotension, dehydration, poor oral intake -continue ICU care due to low threshold for decompensation Attestations Medical Necessity Statement*: Patient requires hospitalization for continued management of acute renal impairment, continued IVF hydration, monitoring and replacement of electrolytes, monitoring of hemodynamic status. Time Spent in Patient Care: Greater than 35 minutes (>than 50% of time spent in counselling and/or direct pt care on unit). Coding Level of Care Code Acute Steam Oven Operator for [facility] Fwd Exam Comprehensive Diagnoses SANDY (acute kidney injury) N17.9 Hypotension I95.9 Hypotension type: unspecified hypotension type Hypokalemia E87.6 CKD (chronic kidney disease) stage 4, GFR 15-29 ml/min N18.4 CHF (congestive heart failure) I50.22 Heart failure chronicity: chronic Heart failure type: systolic Generalized weakness R53.1 HTN (hypertension) I10 Hypertension type: essential hypertension Diabetes E11.22; N18.4; Z79.4 Chronic kidney disease stage: stage 4 (severe) Diabetes mellitus complication detail: with chronic kidney disease Diabetes mellitus complication status: with kidney complications Diabetes mellitus superintendent container terminal insulin use: with superintendent container terminal use Diabetes mellitus type: type 2
[2020-10-31] MEDS: heparin 5,000 unit/mL INJ 1 mL 5000 UNIT SUBCUT ×3 (08:13→22:55)
[2020-10-31] MEDS: sennosides-docusate Tablet 1 TAB PO (08:14)
[2020-10-31] MEDS: pantoprazole DR 40 mg Tablet PO (08:14)
[2020-10-31] MEDS: clotrimazole 1% cream 30 gm 1 APPLIC TOPICAL ×2 (08:15→18:03)
[2020-10-31] MEDS: amiodarone 200 mg Tablet PO (08:16)
--- NOTE | 2020-10-31 08:20 | PC.NURSE ---
Pt's HR consistently in 130's. SBP 80-90's. Amiodarone and Lopressor ordered at this time. Clarified that physician wants Lopressor administered. Lopressor to be administered.
[2020-10-31] MEDS: metoprolol tartrate 25 mg Tablet PO ×2 (08:26→18:03)
[2020-10-31] MEDS: albumin 12.5 GM/250 ML VIAL IV (08:29)
--- NOTE | 2020-10-31 09:10 | PC.SOCIAL ---
IMM Page 2 of IMM explained to patient. Initialed, dated, and timed and placed in chart. Copy provided to patient.
--- NOTE | 2020-10-31 09:30 | PC.CHAP ---
Pastoral Care Encounter/Spiritual Assessment Type of Contact [] Declined motion picture scene builder visit [] Patient/Family/Request visit [] Outpatient visit [] Follow-up visit [] Physician referral [] Code/Alert [] Routine visit [] Staff referral [] Actively dying [] Patient sleeping [] Family support [] [] Out of room [] Palliative care [] [] Receiving care in room [] Pre-surgical visit [] Trauma [] Long length of stay [] ICU visit [] Other: Relational/Emotional Strength [] Patient feels connected with others/family/visitors/staff [] Distress [] Loneliness/isolation [] Abandonment Spirituality of Patient [] Person of Kat[place] [] Attends Voodoo of their [place] [] Believes in Prayer [] Reads Bible or Restoration materials [] There are Spiritual issues to be addressed Health Technician Hearing Interventions [x] Prayer [] Active listening [] Non-anxious presence [] Spiritual/emotional support [] Crisis/trauma care [] Spiritual counseling [] Bereavement support [] Provided bereavement packet [] Provided Bible/devotional materials [] Provided toy/stuffed animal, coloring book to patient or family member [] Provided Communion [] Anointing/Berkey [] Salvation [x] Completed spiritual assessment [] Other: Impact on Illness or Injury [] Angry [] Fearful [] Anxious [] Often cries [] Exhaustion [] Unable to work [] Unable to attend islam [] Unable to walk/stand [] Unable to read [] Unable to drive [] Unable to eat/drink [] Unable to sleep [] Unable to be with family [] Patient intubated [] Other: Summary Time spent with patient
--- NOTE | 2020-10-31 12:16 | P.PN_ITS ---
Subjective Subjective: Interval history: Awake and interactive, breathing comfortably, no uremic Sx per se On ivf since admission and becoming more edematous Slater in, making urine Hemodynamics noted, Afib with RVR 110-140, Bps maintaining Medications: Reviewed: Yes Medication Review Details: Active Medications Generic Name Dose Route Start Last Admin Trade Name Freq PRN Reason Stop Dose Admin Acetaminophen 650 mg 10/28/20 14:47 10/29/20 21:03 Acetaminophen 32 5 Mg Tablet PO 650 mg Q6H PRN Administration MILD PAIN Amiodarone HCl 200 mg 10/29/20 09:00 10/30/20 09:11 Amiodarone 200 M g Tablet PO 200 mg DAILY JM Administration Atorvastatin Calci um 20 mg 10/28/20 21:00 10/30/20 21:19 Atorvastatin 40 Mg Tablet PO 20 mg BEDTIME JM Administration Clotrimazole 1 applic 10/28/20 18:00 10/30/20 17:24 Clotrimazole 1% Cream 30 Gm TOPICAL 1 applic BID JM Administration Dextrose 25 ml 10/28/20 14:47 Dextrose 50% Syr luma 50 Ml IVP ONCE PRN hypoglycemia prot ocol Protocol Dextrose 50 ml 10/28/20 14:47 Dextrose 50% Syr luma 50 Ml IVP PRN PRN hypoglycemia prot ocol Protocol Glucagon 1 mg 10/28/20 14:47 Glucagon 1 Mg/Ml Inj 1 Ml IM ONCE PRN Adult Acute Hypog lycemia Prot. Protocol Heparin Sodium (Be ef Lung) 5,000 unit 10/28/20 15:30 10/30/20 23:21 Heparin 5,000 Un it/Ml Inj 1 Ml SUBCUT 5,000 unit Q8H JM Administration Hydroxyzine Pamoat e 25 mg 10/28/20 14:47 10/30/20 23:45 Hydroxyzine 25 M g Capsule PO 25 mg TID PRN Administration Itching Dextrose 500 mls @ 100 mls /hr 10/28/20 14:47 D5w IV ONCE PRN Adult Acute Hypog lycemia Prot Protocol Potassium Chloride /Sodium Chloride 20 meq in 1,000 m ls @ 50 mls/hr 10/28/20 14:47 10/30/20 21:05 Sodium Chlor 0.9 % + Kcl 20 Meq IV Not Given .Q20H MJ Norepinephrine Bit artrate 4 mg 254 mls @ 0 mls/h r 10/28/20 18:40 10/29/20 03:12 / Dextrose IV 2 mcg/min .Q0M JM 7.6 mls/hr Titration Protocol Per Protocol Piperacillin Sod/T azobactam 50 mls @ 12.5 mls /hr 10/29/20 11:00 10/30/20 23:21 Sod 3.375 gm/ So dium Chloride IV 12.5 mls/hr Q12H JM Administration Protocol As Directed Sodium Bicarbonate 50 meq/ 1,050 mls @ 100 m ls/hr 10/29/20 08:00 10/31/20 07:27 Sodium Chloride IV 100 mls/hr .[id number] JM Administration Insulin Aspart 0 unit 10/28/20 18:00 10/30/20 21:20 Insulin Aspart 1 00 Unit/1 Ml SUBCUT 4 unit WM&BEDTIME JM Administration Protocol Metoprolol Tartrat e 25 mg 10/28/20 18:00 10/30/20 17:16 Metoprolol Tartr ate 25 Mg Tablet PO 25 mg BID JM Administration Morphine Sulfate 2 mg 10/28/20 14:47 Morphine 4 Mg/Ml Sdv 1 Ml IVP Q4H PRN SEVERE PAIN Ondansetron HCl 4 mg 10/28/20 14:47 Ondansetron 2 Mg /Ml Sdv 2 Ml IVP Q6H PRN NAUSEA AND VOMITI NG Pantoprazole Sodiu m 40 mg 10/29/20 09:00 10/30/20 09:[address] 40 Mg Tablet PO 40 mg DAILY MJ Administration Senna/Docusate Sod ium 1 tab 10/28/20 18:00 10/30/20 17:17 Sennosides-Docus ate Tablet PO 1 tab BID JM Administration Sodium Bicarbonate 650 mg 10/28/20 15:00 10/28/20 20:09 Sodium Bicarbona te 650 Mg Tablet PO 650 mg TID JM Administration Trazodone HCl 100 mg 10/28/20 21:00 10/30/20 21:20 Trazodone 100 Mg Tablet PO 100 mg BEDTIME JM Administration Penicillins Allergy (Verified 05/05/20 08:39) Unknown Vitals/I&O/Wt Last Vital Signs Temp 98.2 F 10/31/20 08:30 Pulse 109 H 10/31/20 10:00 Resp 16 10/31/20 10:00 BP 104/78 10/31/20 10:00 Pulse Ox 91 10/31/20 10:00 10/30/20 10/31/20 10/31/20 22:59 06:59 14:59 Intake Total 400 / 1511.667 440 / 7192.186 8916.666 / 1591.666 Output Total 500 / 1050 675 / 1725 Balance -100 / 461.667 -235 / 623.766 8303.666 / 1591.666 Weight last 48 hrs Weight 91.2 kg Weight 84.822 kg Weight 84.822 kg Physical Exam Narrative: EXAM NARRATIVE: Constitutional: Awake, conversant, HEENT: Wet mucosa, no jvp, non icteric Lungs: Bilaterally clear without discernible wheeze, rales in all lung zones CVS: S1 S2, no murmurs Abdo: Soft, BS ok Ext 4: M2-3+ edema, peripheral perfusion with no cyanosis Neurological: Grossly non-focal Urinary Catheter Management^: Slater: Cath Placed During This Visit: yes Reason for Continuing Indwelling Catheter: Accurate Measurement of Urinary Output in Critically Ill Patients Urinary Catheter Date of Insertion: 10/28/20 Urinary Catheter Time of Insertion: 12:10 Data : 10/31/20 03:11 10/31/20 03:11 Micro: Microbiology 10/30/20 13:06 Blood Culture - Preliminary Blood SPECIMEN COLLECTED 10/30/20 13:00 Blood Culture - Preliminary Blood SPECIMEN COLLECTED 10/28/20 13:22 Blood Culture - Preliminary Blood Coagulase negativ staphylococc A&P Additional A&P Information 1. SANDY; pre-renal/hypoperfusion, CRS - initially she has responded to ivf but is now grossly anasarcic - baseline creatinine 2, so still some way from recovery - Will DC ivf - Intermittent Lasix dosing; will give 40mg ivp - Avoid the usuals 2. Hemodynamics - Afib with intermittent RVR; Bps being maintained on Metoprolol and Amiodarone 3. Lytes - minor aberration; non critical inc HypoNa; monitor for now, lasix will help Attestations Medical Necessity Statement*: eval for SANDY Coding Level of Care Code Acute Surgical Services Manager for [facility]
[2020-10-31 12:17] LABS: Glucose Point of Care 244 mg/dL (70-110)
--- NOTE | 2020-10-31 13:30 | PC.NURSE ---
Pt has been yelling out I can't today when staff requests her to help herself. She does not want to move herself.
[2020-10-31] MEDS: FUROsemide 10 mg/mL SDV 4mL 40 MG IVP (13:40)
--- NOTE | 2020-10-31 14:00 | PC.NURSE ---
Pt out of chair to go back to bed, incontinent of stool. Pt stated she did know she needed to go. Pt assisted to BSC to finish. Pt provided wipes to help clean herself, pt stated she can't.. She did start wiping off the front and inner parts of her thighs. She stated she was ready to get up but every I tried I go more . to sit another 10minutes and try to finish was suggested. she then yelled at this nurse she was trying and she was done. Flatulence noted during this conversation. Pt stated she needed to get in the bed, but then said she can't when asked to stand up ( she had just stood up and bore her weight well going to the BSC) back and forth we went about her needed to get in the bed and can't stand up. She finally decided to stand after this nurse stated she would then wait for when pt is ready. Pericare finished and pt assisted to bed. Pt quarrels and is disagreeable when she is asked to do for herself.
--- NOTE | 2020-10-31 16:20 | PC.NURSE ---
OT working with pt. Pt yells out I just want to be left alone.. I cleaned for you (referring to the incontinent incident and BSC) now just leave me alone. Pt informed by this nurse that cleaning herself was for herself so her skin would not get sore from having stool on it.
[2020-10-31 16:58] LABS: Glucose Point of Care 188 mg/dL (70-110)
--- NOTE | 2020-10-31 18:51 | PC.NURSE ---
Shift report: Pt is an unhappy unpleasant elderly lady who does not want to do anything for herself. She has a flat affect. She yells out her demands. She has been out of bed to chair for meals today. She has yelled I can't at each endeavor. She is able to stand, support her own weight, uses walker for balance. She is in Afib. Afebrile. She was purposefully incontinent of bowel this afternoon, bath wipes provided for her to help clean herself up, she yelled about it the whole time. She has ate poorly, then yells out I want some Corie. Sister in to visit. Sister spoke about having to go to pt's house to help her, pt would demand they bring her something to eat (pt has food in house), demand for family to help clean her up and scratch her back. family appears to be enabling pt's helplessness . Urine out put adequate 575 yellow urine this shift.
--- NOTE | 2020-10-31 19:30 | PC.NURSE ---
Report given to KAYLIN Wyatt.
[2020-10-31 20:13] LABS: Glucose Point of Care 211 mg/dL (70-110)
[2020-10-31] MEDS: trazodone 100 mg Tablet PO (20:18)
[2020-10-31] MEDS: atorvastatin 40 mg Tablet 20 MG PO (20:18)
[2020-11-01] VITALS (25 sets, daily range): BP systolic 83–105; BP diastolic 55–76; PULSE 90–127; RESP 16–45; TEMP 36.6–37.2; O2SAT 90–119
[2020-11-01 04:23] LABS: Basophils % 0.4 %; Eosinophils # 0.2 10^3/uL (0.0-0.8); Hematocrit 35.4 % (37.0-47.0); Hemoglobin 10.9 g/dL (11.5-15.3); Lymphocytes # 0.8 10^3/uL (0.8-4.8); Lymphocytes % 10.8 %; Mean Corpuscular HGB Conc 30.8 g/dL (30.0-36.0); Mean Corpuscular Hemoglobin 23.9 pg (28.0-34.0); Mean Corpuscular Volume 77.6 fL (81-99); Mean Platelet Volume 11.5 fL (7.4-10.4); Monocytes # 0.8 10^3/uL (0.2-0.9); Monocytes % 11.4 %; Neutrophils % 70.4 %; Nucleated Red Blood Cells % 0 %; Platelet Count 149 10^3/cmm (130-400); Red Blood Count 4.56 10^6/uL (4.1-5.3); Red Cell Distribution Width 19.4 % (12.1-15.1); White Blood Count 7.3 10^3/uL (4.0-10.0)
[2020-11-01 04:49] LABS: Alanine Aminotransferase < 5 U/L (0-33); Albumin Level 3.1 g/dL (3.5-5.2); Alkaline Phosphatase 100 IU/L (35-105); Aspartate Amino Transferase 10 U/L (0-32); Carbon Dioxide 24 mmol/L (22-29); Chloride 88 mmol/L (98-107); Glomerular Filtration Rate 20.3 mL/min (90-130); Glucose 190 mg/dL (65-115); Osmolality Calculated 307 mOsm/kg (285-295); Sodium 132 mmol/L (136-145); Total Bilirubin 0.6 mg/dL (0.15-1.2); Total Protein 6.1 g/dL (6.6-8.7)
[2020-11-01 04:54] LABS: Blood Urea Nitrogen 91 mg/dL (8-23)
[2020-11-01 05:33] LABS: Magnesium 2.5 mg/dL (1.7-2.3)
--- NOTE | 2020-11-01 07:57 | PM.PN ---
Subjective Subjective: Interval history: BP stable, intermittent tachycardia, afebrile, on RA, tachypneic. Had 450 mL urine output overnight. Continued improvement in renal function, mild hypokalemia so replace. Sitting in recliner by bedside, affect remains flat, easily irritable and intermittently quite demanding. Formal psychiatric evaluation requested. Medications: Reviewed: Yes Medication Review Details: Current Medications Generic Name Dose Route Start Last Admin Trade Name Freq PRN Reason Stop Dose Admin Acetaminophen 650 mg 10/28/20 14:47 10/29/20 21:03 Acetaminophen 32 5 Mg Tablet PO 650 mg Q6H PRN Administration MILD PAIN Amiodarone HCl 200 mg 10/29/20 09:00 10/31/20 08:16 Amiodarone 200 M g Tablet PO 200 mg DAILY JM Administration Atorvastatin Calci um 20 mg 10/28/20 21:00 10/31/20 20:18 Atorvastatin 40 Mg Tablet PO 20 mg BEDTIME JM Administration Clotrimazole 1 applic 10/28/20 18:00 10/31/20 18:03 Clotrimazole 1% Cream 30 Gm TOPICAL 1 applic BID JM Administration Heparin Sodium (Be ef Lung) 5,000 unit 10/28/20 15:30 10/31/20 22:55 Heparin 5,000 Un it/Ml Inj 1 Ml SUBCUT 5,000 unit Q8H JM Administration Hydroxyzine Pamoat e 25 mg 10/28/20 14:47 10/30/20 23:45 Hydroxyzine 25 M g Capsule PO 25 mg TID PRN Administration Itching Norepinephrine Bit artrate 4 mg 254 mls @ 0 mls/h r 10/28/20 18:40 10/29/20 03:12 / Dextrose IV 2 mcg/min .Q0M JM 7.6 mls/hr Titration Protocol Per Protocol Insulin Aspart 0 unit 10/28/20 18:00 10/31/20 20:17 Insulin Aspart 1 00 Unit/1 Ml SUBCUT 4 unit WM&BEDTIME JM Administration Protocol Metoprolol Tartrat e 25 mg 10/28/20 18:00 10/31/20 18:03 Metoprolol Tartr ate 25 Mg Tablet PO 25 mg BID JM Administration Pantoprazole Sodiu m 40 mg 10/29/20 09:00 10/31/20 08:[address] 40 Mg Tablet PO 40 mg DAILY JM Administration Senna/Docusate Sod ium 1 tab 10/28/20 18:00 10/31/20 16:59 Sennosides-Docus ate Tablet PO Not Given BID JM Sodium Bicarbonate 650 mg 10/28/20 15:00 10/28/20 20:09 Sodium Bicarbona te 650 Mg Tablet PO 650 mg TID JM Administration Trazodone HCl 100 mg 10/28/20 21:00 10/31/20 20:18 Trazodone 100 Mg Tablet PO 100 mg BEDTIME JM Administration Vitals/I&O/Wt Last Vital Signs Temp 98.6 F 11/01/20 04:00 Pulse 115 H 11/01/20 06:00 Resp 19 H 11/01/20 06:00 BP 94/55 11/01/20 06:00 Pulse Ox 90 11/01/20 06:00 10/31/20 11/01/20 11/01/20 22:59 06:59 14:59 Intake Total 240 / 2081.666 60 / 2141.666 Output Total 825 / 825 200 / 1025 Balance -585 / 1256.666 -140 / 1116.666 Weight last 48 hrs Weight 91.2 kg Weight 84.822 kg Physical Exam Const: COMMON NORMALS: no acute distress, patient oriented x3 and alert GENERAL APPEARANCE: cooperative, comfortable, ill appearing, frail appearing and appears older than stated age NUTRITIONAL APPEARANCE: obese morbidly obese ORIENTATION/CONSCIOUSNESS: Yes awake OTHER: -appears fatigued, sitting in recliner by bedside HENMT: COMMON NORMALS: normocephalic, atraumatic and hearing grossly normal bilaterally HEAD & SCALP: normocephalic and atraumatic MOUTH: moist mucous membranes abnormal Details: parched Eye: COMMON NORMALS: Equal, round and reactive pupils present, EOMs intact bilaterally and conjunctivae normal CONJUNCTIVA: Yes conjunctivae normal PUPIL: Yes Equal, round and reactive pupils present Neck/C-Spine: COMMON NORMALS: full ROM GENERAL: Yes normal visual inspection and Yes trachea midline Chest: OTHER: -healed sternotomy scar Resp: COMMON NORMALS: normal respiratory effort, No retractions and No use of accessory muscles EFFORT & INSPECTION: Yes able to speak in complete sentences, Yes symmetric chest movement and Yes tachypneic AUSCULTATION: diminished lung sounds OTHER: -on RA Cardio: COMMON NORMALS: regular rate, S1 normal heart sound present, S2 normal heart sound present and No murmurs present (Cardio) RATE: regular rate RHYTHM: abnormal rhythm irregularly irregular HEART SOUNDS: S1 normal heart sound present and S2 normal heart sound present OTHER: -intermittently irregular rhythm on telemetry vs. paced rhythm -low normal BP GI: COMMON NORMALS: Normal to inspection, nondistended, normoactive bowel sounds present, Soft to palpation and non-tender INSPECTION: Yes central obesity PALPATION: Yes Soft to palpation : BLADDER/KIDNEY EXAM: Yes catheter in place Catheter type (Female): urethral Extremity: COMMON NORMALS: normal to inspection, full ROM and no pedal edema NARRATIVE EXTREMITY EXAM: -1-2+ pitting edema of bilateral LEs Neuro: COMMON NORMALS: patient oriented x3, moves all extremities, no focal motor deficits and no sensory deficits noted SENSORIUM/ORIENTATION: Yes alert OTHER: -generally very weak Psych: COMMON NORMALS: mental status grossly normal, Normal thought process present, cooperative and speech normal SPEECH: Yes normal speech MOOD & AFFECT: Yes Flat affect present THOUGHT PROCESS: Normal thought process present Skin: COMMON NORMALS: no rashes or lesions noted, no jaundice, no petechiae and no mottling GENERAL SKIN EXAM: no rashes or lesions noted Urinary Catheter Management^: Slater: Cath Placed During This Visit: yes Reason for Continuing Indwelling Catheter: Accurate Measurement of Urinary Output in Critically Ill Patients Urinary Catheter Date of Insertion: 10/28/20 Urinary Catheter Time of Insertion: 12:10 Data : 11/01/20 03:30 11/01/20 03:30 Micro: Microbiology 10/30/20 13:06 Blood Culture - Preliminary Blood NEGATIVE TO DATE 10/30/20 13:00 Blood Culture - Preliminary Blood NEGATIVE TO DATE A&P Assessment and plan (1) SANDY (acute kidney injury): -SANDY superimposed on CKD stage IV -Baseline creatinine appears to be around 2 -Secondary to dehydration and poor oral intake -Has Slater catheter in place, continue to monitor urine output closely -renal function gradually improving, renally dose meds, avoid nephrotoxins -Nephrology evaluation appreciated -d/c IVF; encourage oral hydration -Hypokalemia, hyponatremia, elevated anion gap metabolic acidosis; ongoing replacement of electrolytes, close monitoring of electrolytes, improving Status: Acute (2) Hypotension: -Noted to be hypotensive likely secondary to degree of dehydration with minimal oral intake over the past several weeks -on IVF with caution secondary to underlying CHF due to risk for fluid overload -continue to hold diuretics and oral antihypertensives for now -Close monitoring of vital signs especially blood pressure -Currently meets sepsis criteria as evidenced by hypotension, tachypnea, leukocytosis; no clear source of infection at this time as chest x-ray unremarkable, urinalysis shows trace bacteria but is otherwise benign, CT scan of the abdomen and pelvis is also unremarkable for source of infection. Lactic acid is within normal limits, she is currently afebrile. Due to overall ill appearance, hypotension and underlying comorbidities, will cover with broad-spectrum IV antibiotics at this time. Given overall improvement, will d/c IV antibiotics -negative rapid COVID-19 testing -albumin x 1 dose; additional doses as needed -blood cx: 12/05 bottles from initial set grew coagulase negative staph, likely contaminants. Repeat set negative Status: Acute Qualifiers: Hypotension type: unspecified hypotension type Qualified Code(s): I95.9 - Hypotension, unspecified (3) Hypokalemia: -Secondary to poor oral intake -Replacement ongoing -continue to trend K Status: Acute (4) CKD (chronic kidney disease) stage 4, GFR 15-29 ml/min: -Follows up with Dr. Swain as an outpatient Status: Chronic (5) CHF (congestive heart failure): -Clinically she does have some evidence of edema in her bilateral lower extremities part of which is chronic; this seems more likely secondary to poor nutritional status and to acutely decompensated CHF -Echo: EF=55%, moderate pulmonary HTN (65), flattened septum consistent with RV volume overload, biatrial enlargement, moderate-severe MR, moderate -intermittent diuresis -continue to monitor vital signs -Telemetry monitoring -BNP quite elevated (>10,000), no evidence of effusions on x-ray though noted to have small pericardial effusion, small right pleural effusion, small amount of ascites on CT scan of the abdomen and pelvis -follows up with Dr. Pavon Status: Acute Qualifiers: Heart failure chronicity: chronic Heart failure type: systolic Qualified Code(s): I50.22 - Chronic systolic (congestive) heart failure (6) Generalized weakness: -Likely multifactorial given physical deconditioning, dehydration, poor oral intake, electrolyte abnormalities, impaired renal function -Strict fall precautions -PT/OT/ST evaluations appreciated; participation limited due to lack of motivation Status: Acute (7) HTN (hypertension): -hold oral antihypertensives secondary to hypotension Status: Chronic Qualifiers: Hypertension type: essential hypertension Qualified Code(s): I10 - Essential (primary) hypertension (8) Diabetes: -last A1c at goal (6.2) -Accucheks, ISS, hold scheduled insulin given poor oral intake; hold oral hypoglycemic agents, hypoglycemia precautions -cardiac consistent carb diet (mechanical soft) as tolerated Status: Chronic Qualifiers: Chronic kidney disease stage: stage 4 (severe) Diabetes mellitus complication detail: with chronic kidney disease Diabetes mellitus complication status: with kidney complications 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: with longterm use Diabetes mellitus type: type 2 Qualified Code(s): E11.22 - Type 2 diabetes mellitus with diabetic chronic kidney disease; N18.4 - Chronic kidney disease, stage 4 (severe); Z79.4 - skilled nursing (current) use of insulin Additional A&P Information -hx of severe MR and TR s/p mitral and tricuspid valve repair, Maze procedure: done at [facility] in 12/2018 -Morbid obesity: BMI-33 kg/m2 though overall nutrition status is quite poor -hx of PE; on AC with Xarelto; hold for now -CAD s/p CABG -Chronic atrial fibrillation; on AC with Xarelto, digoxin discontinued by cardio, on Amiodarone -has dual chamber pacemaker in place -HTN -Chronic normocytic anemia; baseline Hg around 9-11 -Affect seems to be quite depressed, formal psychiatry evaluation requested. Depression seems to be playing a role in terms of her lack of participation in therapy, out of bed activity and even simple tasks such as feeding herself or answering her phone -GI ppx with PPI -DVT ppx with heparin -Dispo: needs SNF placement, agreeable. Previously living at home alone with services and family support. In light of increased generalized weakness, poor oral intake with significant dehydration as noted above, and ability for 24/7 supervision at this time she needs to be in a monitored environment -Code status: DNR, ok with intubation -guarded prognosis due to underlying comorbidities, hypotension, dehydration, poor oral intake -continue ICU care due to low threshold for decompensation. May consider transfer to [facility] if continued stability tomorrow Attestations Medical Necessity Statement*: Patient requires hospitalization for continued management of acute renal impairment, needs continued monitoring of hemodynamic status. Time Spent in Patient Care: 16 - 35 minutes (>than 50% of time spent in counselling and/or direct pt care on unit). Coding Level of Care Code Acute Prep Manager for g Fwd Exam Comprehensive Diagnoses SANDY (acute kidney injury) N17.9 Hypotension I95.9 Hypotension type: unspecified hypotension type Hypokalemia E87.6 CKD (chronic kidney disease) stage 4, GFR 15-29 ml/min N18.4 CHF (congestive heart failure) I50.22 Heart failure chronicity: chronic Heart failure type: systolic Generalized weakness R53.1 HTN (hypertension) I10 Hypertension type: essential hypertension Diabetes E11.22; N18.4; Z79.4 Chronic kidney disease stage: stage 4 (severe) Diabetes mellitus complication detail: with chronic kidney disease Diabetes mellitus complication status: with kidney complications 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: with longterm use Diabetes mellitus type: type 2
[2020-11-01 08:14] LABS: Glucose Point of Care 225 mg/dL (70-110)
[2020-11-01] MEDS: pantoprazole DR 40 mg Tablet PO (09:28)
[2020-11-01] MEDS: sodium bicarbonate 650 mg Tablet PO ×3 (09:28→21:01)
[2020-11-01] MEDS: metoprolol tartrate 25 mg Tablet PO ×2 (09:28→18:13)
[2020-11-01] MEDS: amiodarone 200 mg Tablet PO (09:29)
[2020-11-01] MEDS: heparin 5,000 unit/mL INJ 1 mL 5000 UNIT SUBCUT ×3 (09:29→23:12)
[2020-11-01] MEDS: lidocaine 1% 5 ML in potassium chloride premix 100 ML 25 ML IV (09:29)
[2020-11-01] MEDS: clotrimazole 1% cream 30 gm 1 APPLIC TOPICAL ×2 (09:30→18:13)
--- NOTE | 2020-11-01 09:37 | PC.CHAP ---
Pastoral Care Encounter/Spiritual Assessment Type of Contact [] Declined felt tipping machine tender visit [] Patient/Family/Request visit [] Outpatient visit [] Follow-up visit [] Physician referral [] Code/Alert [] Routine visit [] Staff referral [] Actively dying [] Patient sleeping [] Family support [] [] Out of room [] Palliative care [] [] Receiving care in room [] Pre-surgical visit [] Trauma [] Long length of stay [] ICU visit [] Other: Relational/Emotional Strength [] Patient feels connected with others/family/visitors/staff [] Distress [] Loneliness/isolation [] Abandonment Spirituality of Patient [] Person of [place] [] Attends Druze of their [place] [] Believes in Prayer [] Reads Bible or Adventist materials [] There are Spiritual issues to be addressed 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 Interventions [x] Prayer [] Active listening [] Non-anxious presence [] Spiritual/emotional support [] Crisis/trauma care [] Spiritual counseling [] Bereavement support [] Provided bereavement packet [] Provided Bible/devotional materials [] Provided toy/stuffed animal, coloring book to patient or family member [] Provided Communion [] Anointing/[place] [] Salvation [x] Completed spiritual assessment [] Other: Impact on Illness or Injury [] Angry [] Fearful [] Anxious [] Often cries [] Exhaustion [] Unable to work [] Unable to attend protestant [] Unable to walk/stand [] Unable to read [] Unable to drive [] Unable to eat/drink [] Unable to sleep [] Unable to be with family [] Patient intubated [] Other: Summary Time spent with patient
[2020-11-01] MEDS: potassium chloride ER 20 mEq Tablet 40 MEQ PO (09:57)
--- NOTE | 2020-11-01 11:01 | PM.PN ---
Subjective Subjective: Interval history: Feels ok, comfortable Remains edematous. Denies pain. Eating little but hydrating well. Mobilizing with assistance UO noted to be 1025mL Medications: Reviewed: Yes Medication Review Details: Current Medications Generic Name Dose Route Start Last Admin Trade Name Freq PRN Reason Stop Dose Admin Acetaminophen 650 mg 10/28/20 14:47 10/29/20 21:03 Acetaminophen 32 5 Mg Tablet PO 650 mg Q6H PRN Administration MILD PAIN Amiodarone HCl 200 mg 10/29/20 09:00 10/31/20 08:16 Amiodarone 200 M g Tablet PO 200 mg DAILY JM Administration Atorvastatin Calci um 20 mg 10/28/20 21:00 10/31/20 20:18 Atorvastatin 40 Mg Tablet PO 20 mg BEDTIME JM Administration Clotrimazole 1 applic 10/28/20 18:00 10/31/20 18:03 Clotrimazole 1% Cream 30 Gm TOPICAL 1 applic BID JM Administration Heparin Sodium (Be ef Lung) 5,000 unit 10/28/20 15:30 10/31/20 22:55 Heparin 5,000 Un it/Ml Inj 1 Ml SUBCUT 5,000 unit Q8H JM Administration Hydroxyzine Pamoat e 25 mg 10/28/20 14:47 10/30/20 23:45 Hydroxyzine 25 M g Capsule PO 25 mg TID PRN Administration Itching Norepinephrine Bit artrate 4 mg 254 mls @ 0 mls/h r 10/28/20 18:40 10/29/20 03:12 / Dextrose IV 2 mcg/min .Q0M JM 7.6 mls/hr Titration Protocol Per Protocol Insulin Aspart 0 unit 10/28/20 18:00 10/31/20 20:17 Insulin Aspart 1 00 Unit/1 Ml SUBCUT 4 unit WM&BEDTIME JM Administration Protocol Metoprolol Tartrat e 25 mg 10/28/20 18:00 10/31/20 18:03 Metoprolol Tartr ate 25 Mg Tablet PO 25 mg BID JM Administration Pantoprazole Sodiu m 40 mg 10/29/20 09:00 10/31/20 08:[address] 40 Mg Tablet PO 40 mg DAILY JM Administration Senna/Docusate Sod ium 1 tab 10/28/20 18:00 10/31/20 16:59 Sennosides-Docus ate Tablet PO Not Given BID JM Sodium Bicarbonate 650 mg 10/28/20 15:00 10/28/20 20:09 Sodium Bicarbona te 650 Mg Tablet PO 650 mg TID JM Administration Trazodone HCl 100 mg 10/28/20 21:00 10/31/20 20:18 Trazodone 100 Mg Tablet PO 100 mg BEDTIME JM Administration Vitals/I&O/Wt Last Vital Signs Temp 98.2 F 11/01/20 08:00 Pulse 111 H 11/01/20 10:00 Resp 29 H 11/01/20 10:00 BP 96/71 11/01/20 10:00 Pulse Ox 96 11/01/20 10:00 10/31/20 11/01/20 11/01/20 22:59 06:59 14:59 Intake Total 240 / 2081.666 60 / 2141.666 300 / 300 Output Total 825 / 825 200 / 1025 Balance -585 / 1256.666 -140 / 1116.666 300 / 300 Weight last 48 hrs Weight 91.2 kg Physical Exam Narrative: EXAM NARRATIVE: Constitutional: Awake, conversant, HEENT: Wet mucosa, no jvp, non icteric Lungs: Bilaterally clear without discernible wheeze, rales in all lung zones CVS: S1 S2, no murmurs Abdo: Soft, BS ok Ext 4: 2-3+ edema, peripheral perfusion with no cyanosis Neurological: Grossly non-focal Urinary Catheter Management^: Slater: Cath Placed During This Visit: yes Reason for Continuing Indwelling Catheter: Accurate Measurement of Urinary Output in Critically Ill Patients Urinary Catheter Date of Insertion: 10/28/20 Urinary Catheter Time of Insertion: 12:10 Data : 11/01/20 03:30 11/01/20 03:30 Micro: Microbiology 10/30/20 13:06 Blood Culture - Preliminary Blood NEGATIVE TO DATE 10/30/20 13:00 Blood Culture - Preliminary Blood NEGATIVE TO DATE A&P Additional A&P Information 1. SANDY; pre-renal/hypoperfusion, CRS - Creatinine coming down nicely - Intermittent Lasix dosing; will give 80mg ivp - Avoid the usuals 2. Hemodynamics - Afib with intermittent RVR; Bps being maintained on Metoprolol and Amiodarone 3. Lytes - K low, being replaced with both iv and PO 4. OOB to chair, PT, OT - DC planning, she is making progress Onofre Dove MD Nephrology [phone] Patient seen and examined via telemedicine, with the assistance of the bedside RN Attestations Medical Necessity Statement*: Eval for SANDY Coding Level of Care Code Acute Sales Systems Engineer for Braeden Kuhn
[2020-11-01] MEDS: FUROsemide 10 mg/mL SDV 10mL 80 MG IVP (11:11)
[2020-11-01 11:23] LABS: Glucose Point of Care 230 mg/dL (70-110)
--- NOTE | 2020-11-01 16:44 | PM.NHP ---
Providers/Chief Complaint Admitting Physician: Vianey Silva MD Primary Care Provider: Heather Núñez MD Chief Complaint: GENERALIZED WEAKNESS/ HYPOTENSION HPI NPU History of Present Illness Lizzie Pro is a 65 year old female who presented to the emergency department with the following report: Chief complaint: Weakness Stated complaint: GENERALIZED WEAKNESS/ HYPOTENSION Time Seen by Provider: 10/28/20 10:31 History of Present Illness: HPI Narrative: 65-year-old female presents to the emergency room with a complaint of generally not feeling well and being weak. She was hospitalized last month with some pretty profound hypoglycemia. Ultimately she was discharged and has been at home. She tells me she is not able to get up get out of bed to go to the restroom or get herself anything to eat or drink she has family members that stop by to help but they are only able to stop by 2 or 3 times a week. She is profoundly weak unable to reposition herself in bed. She denies any pain number no chest pain abdominal pain no dysuria urgency or frequency did find some bruising on her right hip area initial blood sugar when she arrived was 198. She denies fever sweats chills cough or flulike symptoms. MD Complaint: generalized weakness Onset (ago): week(s) Duration: constant Location: generalized Migration: none Severity: severe Relieving factors: none Exacerbating factors: none Context: history of similar Associated symptoms: Reports decreased appetite and myalgias; Denies chest pain, chills, confusion, melena, diaphoresis, dysuria, easy bruising, fever(s), headache(s), nausea, rash, short of breath, syncope or vomiting. She was admitted to the [facility] then ICU for definitive treatment of those issues. Significant concern was raised about her low energy and limited engagement in her treatment and circumstances. A psychiatric consult was requested to explore the situation. Lizzie presents today reporting that she has at times struggle with anxiety in her life and was reportedly on the medication that she does not recall the name and I do not see in her med list. She denies ever being on an antidepressant and initially said she was not interested in taking any pills for depression. However during our interview her [id number] arrived and was a great source of support for Lizzie. She agreed that her [id number] could remain in the room as this principal technical writer continued to ask questions. What was shared was that chiquita has had a full and productive life however she is never and never had children. She had a very robust work life for some time. They report that about 7 years ago her mother and I was really tough for her as she spent a lot of her free time interacting with her mom. They report that she had been doing fairly well until recently she started having periods of low mood. According to [id number] there had been a point that they even discussed her seeing someone and possibly being started on an antidepressant but that never really occurred. We discussed the risks, benefits and alternatives of initiating Lexapro and she understood and agreed to proceed as is documented in this note. Psychiatric history: As above. She denies any inpatient hospitalizations or significant follow-up. Substance abuse history: They deny any significant or contributory history. Developmental history: She denies any issues with or delivery, reports of she learned to walk and talk and met her developmental milestones on time, and denies any significant issues with need for speech therapy, learning support, emotional support or special education classes. Psychosocial history: She reports that her mother and father were together and that there were four children born to the family union. They endorse that her childhood was without incident: No emotional, physical or sexual abuse was identified. She graduated from high school. They denied any significant romantic relationships. She was never , she never had children, she never been in the but there was a gnosticist belief system/Restorationism reported. 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 She currently lives in a house alone when she is done for some time. Legal history: She is never had any retirement or significant legal peril. Meds NPU Home Medications Medication Instructions Recorded Confirmed Last Taken Type escitalopram oxalate 10 mg tablet 20 mg PO DAILY 01/20/20 10/28/20 09/07/20 History simvastatin 10 mg tablet 10 mg PO DAILY #30 tab 03/25/20 10/28/20 09/06/20 Rx Refresh Tears See Rx Instructions .ROUTE .COMPLEX 05/05/20 10/28/20 Unknown History Systane (PF) See Rx Instructions .ROUTE .COMPLEX 05/05/20 10/28/20 Unknown History glipizide 20 mg PO DAILY 05/05/20 10/28/20 09/07/20 History trazodone 100 mg PO BEDTIME 05/05/20 10/28/20 09/06/20 History Levemir FlexTouch U-100 Insuln 10 unit SUBCUT QAM #0 ml 09/15/20 10/28/20 09/07/20 Rx clotrimazole 1 % topical cream 1 applic TOPICAL BID 28 Days #15 gm 09/21/20 10/28/20 Unknown Rx torsemide 100 mg tablet 100 mg PO 0800 #30 tab 09/21/20 10/28/20 Unknown Rx torsemide 20 mg tablet 20 mg PO .qpm #30 tab 09/21/20 10/28/20 Unknown Rx amiodarone 200 mg tablet 200 mg PO DAILY #30 tab 09/28/20 10/28/20 Unknown Rx metoprolol tartrate 25 mg tablet 25 mg PO BID #180 tab 10/11/20 10/28/20 Unknown Rx rivaroxaban 10 mg tablet 15 mg PO DAILY 30 Days #135 tab 10/11/20 10/28/20 Unknown Rx Benadryl 2 cap PO PRN 10/28/20 10/28/20 Unknown History hydroxyzine pamoate 25 mg PO TID PRN 10/28/20 10/28/20 Unknown History metolazone 5 mg PO DAILY 10/28/20 10/28/20 Unknown History nystatin 1 applic TOPICAL TID 10/28/20 10/28/20 Unknown History potassium chloride See Rx Instructions .ROUTE .COMPLEX 10/28/20 10/28/20 Unknown History spironolactone See Rx Instructions .ROUTE .COMPLEX 10/28/20 10/28/20 Unknown History Allergies Allergy/AdvReac Type Severity Reaction Status Date / Time Penicillins Allergy Unknown Verified 05/05/20 08:39 PFSH NPU PFSH: Medical History Anemia, chronic disease Atrial fibrillation CHF (congestive heart failure) CKD (chronic kidney disease) stage 4, GFR 15-29 ml/min Coronary artery disease Diabetes HTN (hypertension) Morbid obesity Pacemaker Surgical History H/O tricuspid valve annuloplasty Hx of CABG S/P cholecystectomy S/P left atrial appendage ligation S/P Maze operation for atrial fibrillation Status post mitral valve annuloplasty Family History Other CAD (coronary artery disease) Diabetes Social History Smoking and tobacco status: never smoked Alcohol intake: never Lives independently: Yes Marital status: Single Mental Status Exam MSE Comments: This is an obese older white female with hospital gown on with limited grooming and almost negligible eye contact. No abnormal movements except for psychomotor retardation. Semicooperative with exam in mild distress. Speech was decreased rate and volume. Mood described as depressed, affect congruent. Thought process organized, thought content: Patient denied any suicidal or homicidal ideation but reportedly has been expressing thoughts of not wanting to be around, there were no delusions reported or noted, she denied any auditory or visual hallucinations. Attention and concentration were limited and memory was mostly reliable but none were formally tested. She is alert and oriented x3. Insight and judgment were limited and impulse control appears fair. Vitals/I&O/Wt Last Vital Signs Temp 99.0 F 11/01/20 16:00 Pulse 103 H 11/01/20 16:00 Resp 16 11/01/20 16:00 BP 102/72 11/01/20 16:00 Pulse Ox 91 11/01/20 16:00 11/01/20 14:59 Intake Total 440 / 440 Output Total Balance 440 / 440 Weight last 48 hrs Weight 91.2 kg Physical Exam Urinary Catheter Management^: Slater: Cath Placed During This Visit: yes Reason for Continuing Indwelling Catheter: Accurate Measurement of Urinary Output in Critically Ill Patients Urinary Catheter Date of Insertion: 10/28/20 Urinary Catheter Time of Insertion: 12:10 Data NPU : 11/02/20 03:00 11/02/20 03:00 A&P Assessment and plan (1) Anemia: Status: Acute (2) Hyponatremia: Status: Acute (3) Metabolic acidosis: Status: Acute (4) Acute kidney injury superimposed on chronic kidney disease: Status: Acute (5) Generalized weakness: Status: Acute (6) CKD (chronic kidney disease) stage 4, GFR 15-29 ml/min: Status: Chronic (7) Hypokalemia: Status: Acute (8) Fungal skin disease: Status: Acute (9) Pleural effusion: Status: Acute (10) Atrial fibrillation: Status: Acute Qualifiers: Atrial fibrillation type: unspecified Qualified Code(s): I48.91 - Unspecified atrial fibrillation (11) Hypoglycemia: Status: Acute (12) Hyperkalemia: Status: Acute (13) Status post mitral valve annuloplasty: Status: Acute (14) H/O tricuspid valve annuloplasty: Status: Acute (15) Pacemaker: Status: Acute (16) Diabetes: Status: Chronic Qualifiers: Diabetes mellitus type: type 2 Diabetes mellitus termite exterminator helper insulin use: with termite exterminator helper use Diabetes mellitus complication status: with kidney complications Diabetes mellitus complication detail: with chronic kidney disease Chronic kidney disease stage: stage 4 (severe) Qualified Code(s): E11.22 - Type 2 diabetes mellitus with diabetic chronic kidney disease; N18.4 - Chronic kidney disease, stage 4 (severe); Z79.4 - watermelon inspector (current) use of insulin (17) HTN (hypertension): Status: Chronic Qualifiers: Hypertension type: essential hypertension Qualified Code(s): I10 - Essential (primary) hypertension (18) CHF (congestive heart failure): Status: Acute Qualifiers: Heart failure type: systolic Heart failure chronicity: chronic Qualified Code(s): I50.22 - Chronic systolic (congestive) heart failure (19) Hypoxia: Status: Acute (20) Pneumonia: Status: Acute (21) SANDY (acute kidney injury): Status: Acute (22) Hypotension: Status: Acute Qualifiers: Hypotension type: unspecified hypotension type Qualified Code(s): I95.9 - Hypotension, unspecified (23) UTI (urinary tract infection): Status: Acute (24) Elevated d-dimer: Status: Acute (25) Depression: Status: Acute (26) Anxiety: Status: Acute Additional A&P Information This is a 65-year-old white female with a long history of multiple medical comorbidities who presents with some history of anxiety and depression with worsening recently reporting an openness to initiate an antidepressant. 1. Continue current medication. Except: Start Lexapro 10 mg p.o. every morning. 2. We'll continue to monitor to determine whether inpatient geriatric psychiatric treatment is necessary. 3. We'll continue to follow. Attestations NPU Medical Necessity Statement*: N/A. Please refer to the primary team's note for medical necessity. However we will continue to monitor to determine whether inpatient psychiatric services are needed for safety. Coding Level of Care Code Acute Tour Production Supervisor for Chg Fwd Diagnoses Anemia D64.9 Hyponatremia E87.1 Metabolic acidosis E87.2 Acute kidney injury superimposed on chronic kidney disease N17.9; N18.9 Generalized weakness R53.1 CKD (chronic kidney disease) stage 4, GFR 15-29 ml/min N18.4 Hypokalemia E87.6 Fungal skin disease B36.9 Pleural effusion J90 Atrial fibrillation I48.91 Atrial fibrillation type: unspecified Hypoglycemia E16.2 Hyperkalemia E87.5 Status post mitral valve annuloplasty Z98.890 H/O tricuspid valve annuloplasty Z98.890 Pacemaker Z95.0 Diabetes E11.22; N18.4; Z79.4 Diabetes mellitus type: type 2 Diabetes mellitus termite exterminator helper insulin use: with correction use Diabetes mellitus complication status: with kidney complications Diabetes mellitus complication detail: with chronic kidney disease Chronic kidney disease stage: stage 4 (severe) HTN (hypertension) I10 Hypertension type: essential hypertension CHF (congestive heart failure) I50.22 Heart failure type: systolic Heart failure chronicity: chronic Hypoxia R09.02 Pneumonia J18.9 SANDY (acute kidney injury) N17.9 Hypotension I95.9 Hypotension type: unspecified hypotension type UTI (urinary tract infection) N39.0 Elevated d-dimer R79.89 Depression F32.9 Anxiety F41.9
[2020-11-01 17:26] LABS: Glucose Point of Care 130 mg/dL (70-110)
[2020-11-01 20:46] LABS: Glucose Point of Care 208 mg/dL (70-110)
[2020-11-01] MEDS: atorvastatin 40 mg Tablet 20 MG PO (21:01)
[2020-11-01] MEDS: trazodone 100 mg Tablet PO (21:01)
[2020-11-02] VITALS (26 sets, daily range): BP systolic 80–110; BP diastolic 52–83; PULSE 90–127; RESP 15–41; TEMP 36.5–37; O2SAT 90–110
[2020-11-02 04:01] LABS: Hematocrit 33.2 % (37.0-47.0); Hemoglobin 10.2 g/dL (11.5-15.3); Mean Corpuscular HGB Conc 30.7 g/dL (30.0-36.0); Mean Corpuscular Hemoglobin 23.4 pg (28.0-34.0); Mean Corpuscular Volume 76.3 fL (81-99); Platelet Count 155 10^3/cmm (130-400); Red Blood Count 4.35 10^6/uL (4.1-5.3); Red Cell Distribution Width 19.4 % (12.1-15.1); White Blood Count 9.2 10^3/uL (4.0-10.0)
[2020-11-02 04:25] LABS: Anion Gap 23.2 (5-19); Calcium 8.9 mg/dL (8.5-10.5); Carbon Dioxide 24 mmol/L (22-29); Chloride 86 mmol/L (98-107); Glomerular Filtration Rate 21.3 mL/min (90-130); Glucose 222 mg/dL (65-115); Magnesium 2.4 mg/dL (1.7-2.3); Osmolality Calculated 303 mOsm/kg (285-295); Potassium 3.2 mmol/L (3.5-5.1); Sodium 130 mmol/L (136-145)
[2020-11-02 04:48] LABS: Blood Urea Nitrogen 86 mg/dL (8-23)
[2020-11-02 05:04] LABS: Absolute Eosinophils 0.2 10^3/cmm (0.0-0.7); Absolute Neutrophil 7.8 10^3/cmm (1.4-6.5); Absolute Segmented Neutrophil 7.8 10/cmm (1.6-7.1); Anisocytosis 1+; Eosinophils 3 %; Hypochromasia 2+; Lymphocytes 9 %; Microcytosis 1+; Monocytes Absolute 0.3 10^3/cmm (0.1-0.6); Platelet Estimate Normal (Normal); Segmented Neutrophils 85 %; Total Cells Counted 100 (0-100)
--- NOTE | 2020-11-02 05:15 | PC.NURSE ---
Turning every 2 hours. Afib. VSS.
[2020-11-02 07:40] LABS: Glucose Point of Care 245 mg/dL (70-110)
[2020-11-02] MEDS: heparin 5,000 unit/mL INJ 1 mL 5000 UNIT SUBCUT ×3 (07:44→23:25)
--- NOTE | 2020-11-02 08:46 | PC.OT ---
OT NOTE: OT TREATMENT ATTEMPTED THIS MORNING. PATIENT ADAMANTLY REFUSES TREATMENT. OFFERED UE EXERCISES TO BUILD STRENGTH AND ENDURANCE AND ADL/GROOMING THIS MORNING. PATIENT STATED THAT SHE HAD ALREADY PERFORMED EXERCISES THIS A.M.... WILL ATTEMPT AGAIN IN P.M.
--- NOTE | 2020-11-02 08:49 | DCPLANNER ---
Pg 2 of IM updated and reviewed with pt. No questions, copy provided.
--- NOTE | 2020-11-02 09:12 | P.PN_ITS ---
Subjective Subjective: Interval history: Blood pressure remains low normal dose stable, afebrile, remains on room air, had 300 mL urine output overnight. Renal function continues to gradually improve, hemoglobin is stable. Flat affect persists, continued periods of irritability and difficultly engaging in activity due to low motivation. Medications: Reviewed: Yes Medication Review Details: Active Medications Generic Name Dose Route Start Last Admin Trade Name Freq PRN Reason Stop Dose Admin Acetaminophen 650 mg 10/28/20 14:47 10/29/20 21:03 Acetaminophen 32 5 Mg Tablet PO 650 mg Q6H PRN Administration MILD PAIN Amiodarone HCl 200 mg 10/29/20 09:00 11/01/20 09:29 Amiodarone 200 M g Tablet PO 200 mg DAILY JM Administration Atorvastatin Calci um 20 mg 10/28/20 21:00 11/01/20 21:01 Atorvastatin 40 Mg Tablet PO 20 mg BEDTIME JM Administration Clotrimazole 1 applic 10/28/20 18:00 11/01/20 18:13 Clotrimazole 1% Cream 30 Gm TOPICAL 1 applic BID JM Administration Dextrose 25 ml 10/28/20 14:47 Dextrose 50% Syr luma 50 Ml IVP ONCE PRN hypoglycemia prot ocol Protocol Dextrose 50 ml 10/28/20 14:47 Dextrose 50% Syr luma 50 Ml IVP PRN PRN hypoglycemia prot ocol Protocol Escitalopram Oxala te 10 mg 11/02/20 09:00 Escitalopram 10 Mg Tablet PO DAILY JM Glucagon 1 mg 10/28/20 14:47 Glucagon 1 Mg/Ml Inj 1 Ml IM ONCE PRN Adult Acute Hypog lycemia Prot. Protocol Heparin Sodium (Be ef Lung) 5,000 unit 10/28/20 15:30 11/02/20 07:44 Heparin 5,000 Un it/Ml Inj 1 Ml SUBCUT 5,000 unit Q8H JM Administration Hydroxyzine Pamoat e 25 mg 10/28/20 14:47 10/30/20 23:45 Hydroxyzine 25 M g Capsule PO 25 mg TID PRN Administration Itching Dextrose 500 mls @ 100 mls /hr 10/28/20 14:47 D5w IV ONCE PRN Adult Acute Hypog lycemia Prot Protocol Norepinephrine Bit artrate 4 mg 254 mls @ 0 mls/h r 10/28/20 18:40 10/29/20 03:12 / Dextrose IV 2 mcg/min .Q0M JM 7.6 mls/hr Titration Protocol Per Protocol Insulin Aspart 0 unit 10/28/20 18:00 11/02/20 07:44 Insulin Aspart 1 00 Unit/1 Ml SUBCUT 6 unit WM&BEDTIME JM Administration Protocol Metoprolol Tartrat e 25 mg 10/28/20 18:00 11/01/20 18:13 Metoprolol Tartr ate 25 Mg Tablet PO 25 mg BID JM Administration Morphine Sulfate 2 mg 10/28/20 14:47 Morphine 4 Mg/Ml Sdv 1 Ml IVP Q4H PRN SEVERE PAIN Ondansetron HCl 4 mg 10/28/20 14:47 Ondansetron 2 Mg /Ml Sdv 2 Ml IVP Q6H PRN NAUSEA AND VOMITI NG Pantoprazole Sodiu m 40 mg 10/29/20 09:00 11/01/20 09:[address] 40 Mg Tablet PO 40 mg DAILY JM Administration Potassium Chloride 40 meq 11/01/20 09:00 11/01/20 09:57 Potassium Chlori de Er 20 Meq Table t PO 40 meq DAILY JM Administration Senna/Docusate Sod ium 1 tab 10/28/20 18:00 11/01/20 18:14 Sennosides-Docus ate Tablet PO Not Given BID JM Sodium Bicarbonate 650 mg 10/28/20 15:00 11/01/20 21:01 Sodium Bicarbona te 650 Mg Tablet PO 650 mg TID JM Administration Trazodone HCl 100 mg 10/28/20 21:00 11/01/20 21:01 Trazodone 100 Mg Tablet PO 100 mg BEDTIME JM Administration Penicillins Allergy (Verified 05/05/20 08:39) Unknown Vitals/I&O/Wt Last Vital Signs Temp 98.6 F 11/02/20 06:00 Pulse 94 11/02/20 09:08 Resp 24 H 11/02/20 08:00 BP 84/59 11/02/20 07:00 Pulse Ox 110 H 11/02/20 09:08 11/01/20 11/02/20 11/02/20 22:59 06:59 14:59 Intake Total 120 / 560 480 / 1040 235 / 235 Output Total 550 / 550 300 / 850 Balance -430 / 10 180 / 190 235 / 235 Weight last 48 hrs Weight 91.2 kg Physical Exam Const: COMMON NORMALS: no acute distress, patient oriented x3 and alert GENERAL APPEARANCE: cooperative, comfortable, ill appearing, frail appearing and appears older than stated age NUTRITIONAL APPEARANCE: obese morbidly obese ORIENTATION/CONSCIOUSNESS: Yes awake OTHER: -appears fatigued, sitting in recliner by bedside HENMT: COMMON NORMALS: normocephalic, atraumatic and hearing grossly normal bilaterally HEAD & SCALP: normocephalic and atraumatic MOUTH: moist mucous membranes abnormal Details: parched Eye: COMMON NORMALS: Equal, round and reactive pupils present, EOMs intact bilaterally and conjunctivae normal CONJUNCTIVA: Yes conjunctivae normal PUPIL: Yes Equal, round and reactive pupils present Neck/C-Spine: COMMON NORMALS: full ROM GENERAL: Yes normal visual inspection and Yes trachea midline Chest: OTHER: -healed sternotomy scar Resp: COMMON NORMALS: normal respiratory effort, No retractions and No use of accessory muscles EFFORT & INSPECTION: Yes able to speak in complete sentences, Yes symmetric chest movement and Yes tachypneic AUSCULTATION: diminished lung sounds OTHER: -on RA Cardio: COMMON NORMALS: regular rate, S1 normal heart sound present, S2 normal heart sound present and No murmurs present (Cardio) RATE: regular rate RHYTHM: abnormal rhythm irregularly irregular HEART SOUNDS: S1 normal heart sound present and S2 normal heart sound present OTHER: -intermittently irregular rhythm on telemetry vs. paced rhythm -low normal BP GI: COMMON NORMALS: Normal to inspection, nondistended, normoactive bowel sounds present, Soft to palpation and non-tender INSPECTION: Yes central obesity PALPATION: Yes Soft to palpation : BLADDER/KIDNEY EXAM: Yes catheter in place Catheter type (Female): urethral Extremity: COMMON NORMALS: normal to inspection, full ROM and no pedal edema NARRATIVE EXTREMITY EXAM: -1-2+ pitting edema of bilateral LEs Neuro: COMMON NORMALS: patient oriented x3, moves all extremities, no focal motor deficits and no sensory deficits noted SENSORIUM/ORIENTATION: Yes alert OTHER: -generally very weak Psych: COMMON NORMALS: mental status grossly normal, Normal thought process present, cooperative and speech normal SPEECH: Yes normal speech MOOD & AFFECT: Yes Flat affect present THOUGHT PROCESS: Normal thought process present Skin: COMMON NORMALS: no rashes or lesions noted, no jaundice, no petechiae and no mottling GENERAL SKIN EXAM: no rashes or lesions noted Urinary Catheter Management^: Slater: Cath Placed During This Visit: yes Reason for Continuing Indwelling Catheter: Accurate Measurement of Urinary Output in Critically Ill Patients Urinary Catheter Date of Insertion: 10/28/20 Urinary Catheter Time of Insertion: 12:10 Data : 11/02/20 03:00 11/02/20 03:00 A&P Assessment and plan (1) SANDY (acute kidney injury): -SANDY superimposed on CKD stage IV -Baseline creatinine appears to be around 2 -Secondary to dehydration and poor oral intake -Has Slater catheter in place, continue to monitor urine output closely -renal function gradually improving, renally dose meds, avoid nephrotoxins -Nephrology evaluation appreciated -off IVF; encourage oral hydration -Hypokalemia, hyponatremia, elevated anion gap metabolic acidosis; ongoing replacement of electrolytes, close monitoring of electrolytes, improving Status: Acute (2) Hypotension: -Noted to be hypotensive likely secondary to degree of dehydration with minimal oral intake over the past several weeks -on IVF with caution secondary to underlying CHF due to risk for fluid overload -continue to hold diuretics and oral antihypertensives for now -Close monitoring of vital signs especially blood pressure -Currently meets sepsis criteria as evidenced by hypotension, tachypnea, leukocytosis; no clear source of infection at this time as chest x-ray unremarkable, urinalysis shows trace bacteria but is otherwise benign, CT scan of the abdomen and pelvis is also unremarkable for source of infection. Lactic acid is within normal limits, she is currently afebrile. Due to overall ill appearance, hypotension and underlying comorbidities, will cover with broad- spectrum IV antibiotics at this time. Given overall improvement, will d/c IV antibiotics -negative rapid COVID-19 testing -albumin x 1 dose; additional doses as needed -blood cx: 12/05 bottles from initial set grew coagulase negative staph, likely contaminants. Repeat set negative Status: Acute Qualifiers: Hypotension type: unspecified hypotension type Qualified Code(s): I95.9 - Hypotension, unspecified (3) Hypokalemia: -Secondary to poor oral intake -Replacement ongoing -continue to trend K Status: Acute (4) CKD (chronic kidney disease) stage 4, GFR 15-29 ml/min: -Follows up with Dr. Swain as an outpatient Status: Chronic (5) CHF (congestive heart failure): -Clinically she does have some evidence of edema in her bilateral lower extremities part of which is chronic; this seems more likely secondary to poor nutritional status and to acutely decompensated CHF -Echo: EF=55%, moderate pulmonary HTN (65), flattened septum consistent with RV volume overload, biatrial enlargement, moderate-severe MR, moderate -intermittent diuresis -continue to monitor vital signs -Telemetry monitoring -BNP quite elevated (>10,000), no evidence of effusions on x-ray though noted to have small pericardial effusion, small right pleural effusion, small amount of ascites on CT scan of the abdomen and pelvis -follows up with Dr. Pavon Status: Acute Qualifiers: Heart failure chronicity: chronic Heart failure type: systolic Qualified Code(s): I50.22 - Chronic systolic (congestive) heart failure (6) Generalized weakness: -Likely multifactorial given physical deconditioning, dehydration, poor oral intake, electrolyte abnormalities, impaired renal function -Strict fall precautions -PT/OT/ST evaluations appreciated; participation limited due to lack of motivation Status: Acute (7) HTN (hypertension): -hold oral antihypertensives secondary to hypotension Status: Chronic Qualifiers: Hypertension type: essential hypertension Qualified Code(s): I10 - Essential (primary) hypertension (8) Diabetes: -last A1c at goal (6.2) -Accucheks, ISS, hold scheduled insulin given poor oral intake; hold oral hypoglycemic agents, hypoglycemia precautions -cardiac consistent carb diet (mechanical soft) as tolerated Status: Chronic Qualifiers: Chronic kidney disease stage: stage 4 (severe) Diabetes mellitus complication detail: with chronic kidney disease Diabetes mellitus complication status: with kidney complications Diabetes mellitus chcf insulin use: with middle or intermediate school principal use Diabetes mellitus type: type 2 Qualified Code(s): E11.22 - Type 2 diabetes mellitus with diabetic chronic kidney disease; N18.4 - Chronic kidney disease, stage 4 (severe); Z79.4 - nursing home (current) use of insulin Additional A&P Information -hx of severe MR and TR s/p mitral and tricuspid valve repair, Maze procedure: done at [facility] in 12/2018 -Morbid obesity: BMI-33 kg/m2 though overall nutrition status is quite poor -hx of PE; on AC with Xarelto; hold for now -CAD s/p CABG -Chronic atrial fibrillation; on AC with Xarelto, digoxin discontinued by cardio, on Amiodarone -has dual chamber pacemaker in place -HTN -Chronic normocytic anemia; baseline Hg around 9-11 -Affect seems to be quite depressed, formal psychiatry evaluation pending. Depression seems to be playing a role in terms of her lack of participation in therapy, out of bed activity and even simple tasks such as feeding herself or answering her phone -GI ppx with PPI -DVT ppx with heparin -Dispo: needs SNF placement, agreeable. Previously living at home alone with services and family support. In light of increased generalized weakness, poor oral intake with significant dehydration as noted above, and ability for 24/7 supervision at this time she needs to be in a monitored environment. Agreeable only to [facility], not currently taking new patients -Code status: DNR, ok with intubation -guarded prognosis due to underlying comorbidities, hypotension, dehydration, poor oral intake -continue ICU care due to low threshold for decompensation. May consider transfer to [facility] if continued stability tomorrow Attestations Medical Necessity Statement*: Patient requires hospitalization for continued monitoring of renal function, telemetry and, hemodynamic status; pending appropriate disposition. Time Spent in Patient Care: 16 - 35 minutes (>than 50% of time spent in counselling and/or direct pt care on unit) . Coding Level of Care Code Acute Traffic Rate Analyst for g Fwd Exam Comprehensive Diagnoses SANDY (acute kidney injury) N17.9 Hypotension I95.9 Hypotension type: unspecified hypotension type Hypokalemia E87.6 CKD (chronic kidney disease) stage 4, GFR 15-29 ml/min N18.4 CHF (congestive heart failure) I50.22 Heart failure chronicity: chronic Heart failure type: systolic Generalized weakness R53.1 HTN (hypertension) I10 Hypertension type: essential hypertension Diabetes E11.22; N18.4; Z79.4 Chronic kidney disease stage: stage 4 (severe) Diabetes mellitus complication detail: with chronic kidney disease Diabetes mellitus complication status: with kidney complications Diabetes mellitus middle or intermediate school principal insulin use: with chcf use Diabetes mellitus type: type 2
[2020-11-02] MEDS: amiodarone 200 mg Tablet PO (09:45)
[2020-11-02] MEDS: potassium chloride ER 20 mEq Tablet 40 MEQ PO (09:45)
[2020-11-02] MEDS: sodium bicarbonate 650 mg Tablet PO (09:46)
[2020-11-02] MEDS: pantoprazole DR 40 mg Tablet PO (09:46)
[2020-11-02] MEDS: sennosides-docusate Tablet 1 TAB PO ×2 (09:46→18:00)
[2020-11-02] MEDS: escitalopram 10 mg Tablet PO (09:46)
[2020-11-02] MEDS: clotrimazole 1% cream 30 gm 1 APPLIC TOPICAL ×2 (09:46→18:01)
[2020-11-02 12:10] LABS: Glucose Point of Care 295 mg/dL (70-110)
--- NOTE | 2020-11-02 12:47 | PM.PN ---
Subjective Subjective: Interval history: Feels tired, weak, not wanting to interact. UO noted to be 850mL, ? fully recorded No uremic Sx Creatinine noted to be coming down Medications: Reviewed: Yes Medication Review Details: Active Medications Generic Name Dose Route Start Last Admin Trade Name Freq PRN Reason Stop Dose Admin Acetaminophen 650 mg 10/28/20 14:47 10/29/20 21:03 Acetaminophen 32 5 Mg Tablet PO 650 mg Q6H PRN Administration MILD PAIN Amiodarone HCl 200 mg 10/29/20 09:00 11/01/20 09:29 Amiodarone 200 M g Tablet PO 200 mg DAILY JM Administration Atorvastatin Calci um 20 mg 10/28/20 21:00 11/01/20 21:01 Atorvastatin 40 Mg Tablet PO 20 mg BEDTIME JM Administration Clotrimazole 1 applic 10/28/20 18:00 11/01/20 18:13 Clotrimazole 1% Cream 30 Gm TOPICAL 1 applic BID JM Administration Dextrose 25 ml 10/28/20 14:47 Dextrose 50% Syr luma 50 Ml IVP ONCE PRN hypoglycemia prot ocol Protocol Dextrose 50 ml 10/28/20 14:47 Dextrose 50% Syr luma 50 Ml IVP PRN PRN hypoglycemia prot ocol Protocol Escitalopram Oxala te 10 mg 11/02/20 09:00 Escitalopram 10 Mg Tablet PO DAILY JM Glucagon 1 mg 10/28/20 14:47 Glucagon 1 Mg/Ml Inj 1 Ml IM ONCE PRN Adult Acute Hypog lycemia Prot. Protocol Heparin Sodium (Be ef Lung) 5,000 unit 10/28/20 15:30 11/02/20 07:44 Heparin 5,000 Un it/Ml Inj 1 Ml SUBCUT 5,000 unit Q8H JM Administration Hydroxyzine Pamoat e 25 mg 10/28/20 14:47 10/30/20 23:45 Hydroxyzine 25 M g Capsule PO 25 mg TID PRN Administration Itching Dextrose 500 mls @ 100 mls /hr 10/28/20 14:47 D5w IV ONCE PRN Adult Acute Hypog lycemia Prot Protocol Norepinephrine Bit artrate 4 mg 254 mls @ 0 mls/h r 10/28/20 18:40 10/29/20 03:12 / Dextrose IV 2 mcg/min .Q0M MJ 7.6 mls/hr Titration Protocol Per Protocol Insulin Aspart 0 unit 10/28/20 18:00 11/02/20 07:44 Insulin Aspart 1 00 Unit/1 Ml SUBCUT 6 unit WM&BEDTIME JM Administration Protocol Metoprolol Tartrat e 25 mg 10/28/20 18:00 11/01/20 18:13 Metoprolol Tartr ate 25 Mg Tablet PO 25 mg BID JM Administration Morphine Sulfate 2 mg 10/28/20 14:47 Morphine 4 Mg/Ml Sdv 1 Ml IVP Q4H PRN SEVERE PAIN Ondansetron HCl 4 mg 10/28/20 14:47 Ondansetron 2 Mg /Ml Sdv 2 Ml IVP Q6H PRN NAUSEA AND VOMITI NG Pantoprazole Sodiu m 40 mg 10/29/20 09:00 11/01/20 09:[address] 40 Mg Tablet PO 40 mg DAILY JM Administration Potassium Chloride 40 meq 11/01/20 09:00 11/01/20 09:57 Potassium Chlori de Er 20 Meq Table t PO 40 meq DAILY JM Administration Senna/Docusate Sod ium 1 tab 10/28/20 18:00 11/01/20 18:14 Sennosides-Docus ate Tablet PO Not Given BID JM Sodium Bicarbonate 650 mg 10/28/20 15:00 11/01/20 21:01 Sodium Bicarbona te 650 Mg Tablet PO 650 mg TID JM Administration Trazodone HCl 100 mg 10/28/20 21:00 11/01/20 21:01 Trazodone 100 Mg Tablet PO 100 mg BEDTIME JM Administration Penicillins Allergy (Verified 05/05/20 08:39) Unknown Vitals/I&O/Wt Last Vital Signs Temp 98.6 F 11/02/20 06:00 Pulse 125 H 11/02/20 12:00 Resp 21 H 11/02/20 12:00 BP 92/63 11/02/20 12:00 Pulse Ox 91 11/02/20 12:00 11/01/20 11/02/20 11/02/20 22:59 06:59 14:59 Intake Total 120 / 560 480 / 1040 235 / 235 Output Total 550 / 550 300 / 850 Balance -430 / 10 180 / 190 235 / 235 Physical Exam Narrative: EXAM NARRATIVE: Constitutional: Awake, conversant, HEENT: Wet mucosa, no jvp, non icteric Lungs: Bilaterally clear without discernible wheeze, rales in all lung zones CVS: S1 S2, no murmurs Abdo: Soft, BS ok Ext 4: 2-3+ edema, peripheral perfusion with no cyanosis Neurological: Grossly non-focal Urinary Catheter Management^: Slater: Cath Placed During This Visit: yes Reason for Continuing Indwelling Catheter: Accurate Measurement of Urinary Output in Critically Ill Patients Urinary Catheter Date of Insertion: 10/28/20 Urinary Catheter Time of Insertion: 12:10 Data : 11/02/20 03:00 11/02/20 03:00 A&P Additional A&P Information 1. SANDY; pre-renal/hypoperfusion, CRS - Creatinine coming down - Intermittent Lasix dosing; will give 60mg ivp again today. - Avoid the usuals 2. Hemodynamics - Afib with intermittent RVR; Bps being maintained on Metoprolol and Amiodarone 3. Lytes - K low, being replaced with both iv and PO > redose today - DC sodium bicarbonate due to extra sodium 4. OOB to chair, PT, OT - DC planning, she is making progress Onofre Dove MD Nephrology [phone] Patient seen and examined via telemedicine, with the assistance of the bedside RN Attestations Medical Necessity Statement*: Eval for SANDY Coding Level of Care Code Acute Stave Bolt Equalizer for Braeden Kuhn
[2020-11-02] MEDS: FUROsemide 10 mg/mL SDV 10mL 60 MG IVP (14:38)
[2020-11-02] MEDS: potassium chloride premix 100 ML 25 MEQ IV (14:38)
[2020-11-02] MEDS: hyDROXYzine 25 mg Capsule PO (14:54)
[2020-11-02] MEDS: lidocaine 1% INJ 20 mL 5 ML IV (14:54)
--- NOTE | 2020-11-02 15:24 | PC.OT ---
OT TREATMENT ATTEMPTED TWICE THIS P.M. PATIENT SLEEPING SOUNDLY AT BOTH ATTEMPTS; HR 105 AT 1525. WILL ATTEMPT AGAIN TOMORROW.
[2020-11-02] MEDS: saline nasal spray 44mL Btl 1 SPRAY NASAL (17:06)
[2020-11-02 17:34] LABS: Glucose Point of Care 278 mg/dL (70-110)
[2020-11-02] MEDS: metoprolol tartrate 25 mg Tablet 37.5 MG PO (18:01)
--- NOTE | 2020-11-02 19:19 | PM.NPN ---
Subjective NPU Subjective: Interval history: Lizzie presents today reporting she remains depressed. She got her first dose of Lexapro this morning and we discussed the fact that is not instantaneous medication. That being said she was a little more open with housing feeling endorsing suicidal thoughts for some time. He was having the feeling that itching all over making her feel miserable and some degree of her medical ailments induced feeling of being miserable. Mental Status Exam MSE Comments: This is an obese older white female with hospital gown on with limited grooming and almost negligible eye contact. No abnormal movements except for psychomotor retardation. More cooperative with exam in mild distress. Speech was decreased rate and volume. Mood described as depressed, affect congruent. Thought process organized, thought content: Patient endorsed suicidal but denied homicidal ideation and also reported a passive wish, there were no delusions reported or noted, she denied any auditory or visual hallucinations. Attention and concentration were intact and memory was mostly reliable but none were formally tested. She is alert and oriented x3. Insight and judgment were fair and impulse control appears fair. Vitals/I&O/Wt Last Vital Signs Temp 98.6 F 11/02/20 06:00 Pulse 113 H 11/02/20 18:00 Resp 35 H 11/02/20 18:00 BP 98/60 11/02/20 18:00 Pulse Ox 94 11/02/20 18:00 11/02/20 11/02/20 11/02/20 06:59 14:59 22:59 Intake Total 480 / 1040 235 / 235 120 / 355 Output Total 300 / 850 300 / 300 Balance 180 / 190 235 / 235 -180 / 55 Weight last 48 hrs Weight 92.164 kg Physical Exam Urinary Catheter Management^: Slater: Cath Placed During This Visit: yes Reason for Continuing Indwelling Catheter: Accurate Measurement of Urinary Output in Critically Ill Patients Urinary Catheter Date of Insertion: 10/28/20 Urinary Catheter Time of Insertion: 12:10 Data NPU : 11/03/20 03:15 11/03/20 03:15 Micro: Microbiology 10/28/20 12:01 Blood Culture - Final Blood NO GROWTH AFTER 5 DAYS Microbiology 10/28/20 12:01 Blood Blood Culture - Final NO GROWTH AFTER 5 DAYS A&P Additional A&P Information (1) Anemia: (2) Hyponatremia: (3) Metabolic acidosis: (4) Acute kidney injury superimposed on chronic kidney disease: (5) Generalized weakness: (6) CKD (chronic kidney disease) stage 4, GFR 15-29 ml/min: (7) Hypokalemia: (8) Fungal skin disease: (9) Pleural effusion: (10) Atrial fibrillation: (11) Hypoglycemia: (12) Hyperkalemia: (13) Status post mitral valve annuloplasty: (14) H/O tricuspid valve annuloplasty: (15) Pacemaker: (16) Diabetes: (17) HTN (hypertension): (18) CHF (congestive heart failure): (19) Hypoxia: (20) Pneumonia: (21) SANDY (acute kidney injury): (22) Hypotension: (23) UTI (urinary tract infection): (24) Elevated d-dimer: (25) Depression: (26) Anxiety: This is a 65-year-old white female with a long history of multiple medical comorbidities who presents with some history of anxiety and depression with worsening recently reporting an openness to initiate an antidepressant. 1. Continue current medication. 2. We'll continue to monitor to determine whether inpatient geriatric psychiatric treatment is necessary. 3. We'll continue to follow. Attestations NPU Medical Necessity Statement*: N/A. Please refer to the primary team's note for medical necessity. However we will continue to monitor to determine whether inpatient psychiatric services are needed for safety. Coding Level of Care Code Acute Investor Relations Manager for Braeden Kuhn
[2020-11-02 20:35] LABS: Glucose Point of Care 296 mg/dL (70-110)
[2020-11-02] MEDS: trazodone 100 mg Tablet PO (20:37)
[2020-11-02] MEDS: atorvastatin 40 mg Tablet 20 MG PO (20:37)
[2020-11-03] VITALS (25 sets, daily range): BP systolic 83–122; BP diastolic 53–86; PULSE 98–133; RESP 15–45; TEMP 36.4–36.5; O2SAT 90–95; BMI 35.9
[2020-11-03] MEDS: hyDROXYzine 25 mg Capsule PO (02:27)
[2020-11-03 03:57] LABS: Hemoglobin 10.1 g/dL (11.5-15.3); Mean Corpuscular HGB Conc 31.6 g/dL (30.0-36.0); Mean Corpuscular Hemoglobin 23.6 pg (28.0-34.0); Mean Corpuscular Volume 74.8 fL (81-99); Platelet Count 139 10^3/cmm (130-400); Red Blood Count 4.28 10^6/uL (4.1-5.3); Red Cell Distribution Width 19.5 % (12.1-15.1); White Blood Count 9.1 10^3/uL (4.0-10.0)
[2020-11-03 04:20] LABS: Calcium 8.7 mg/dL (8.5-10.5); Carbon Dioxide 26 mmol/L (22-29); Chloride 86 mmol/L (98-107); Glomerular Filtration Rate 22.4 mL/min (90-130); Glucose 240 mg/dL (65-115); Osmolality Calculated 299 mOsm/kg (285-295); Sodium 128 mmol/L (136-145)
[2020-11-03 04:39] LABS: Blood Urea Nitrogen 83 mg/dL (8-23)
[2020-11-03 05:08] LABS: Absolute Eosinophils 0.1 10^3/cmm (0.0-0.7); Absolute Neutrophil 7.1 10^3/cmm (1.4-6.5); Absolute Segmented Neutrophil 7.1 10/cmm (1.6-7.1); Eosinophils 2 %; Lymphocytes 8 %; Monocytes Absolute 0.8 10^3/cmm (0.1-0.6); Platelet Estimate Normal (Normal); Segmented Neutrophils 78 %; Total Cells Counted 100 (0-100)
[2020-11-03] MEDS: diphenhydrAMINE 25 mg Capsule PO (05:51)
--- NOTE | 2020-11-03 07:50 | PM.PN ---
Subjective Subjective: Interval history: Had 275 mL urine output overnight, stable BP, afebrile, on RA, remains tachycardic. Stable Hg, continued improvement in renal function, corrected Na-130. Refused to take her AM meds, reluctant to speak to me this AM, just wants to sleep. Medications: Reviewed: Yes Medication Review Details: Active Medications Generic Name Dose Route Start Last Admin Trade Name Freq PRN Reason Stop Dose Admin Acetaminophen 650 mg 10/28/20 14:47 10/29/20 21:03 Acetaminophen 32 5 Mg Tablet PO 650 mg Q6H PRN Administration MILD PAIN Amiodarone HCl 200 mg 10/29/20 09:00 11/02/20 09:45 Amiodarone 200 M g Tablet PO 200 mg DAILY MJ Administration Atorvastatin Calci um 20 mg 10/28/20 21:00 11/02/20 20:37 Atorvastatin 40 Mg Tablet PO 20 mg BEDTIME JM Administration Clotrimazole 1 applic 10/28/20 18:00 11/02/20 18:01 Clotrimazole 1% Cream 30 Gm TOPICAL 1 applic BID JM Administration Dextrose 25 ml 10/28/20 14:47 Dextrose 50% Syr luma 50 Ml IVP ONCE PRN hypoglycemia prot ocol Protocol Dextrose 50 ml 10/28/20 14:47 Dextrose 50% Syr luma 50 Ml IVP PRN PRN hypoglycemia prot ocol Protocol Diphenhydramine HC l 25 mg 11/03/20 05:43 11/03/20 05:51 Diphenhydramine 25 Mg Capsule PO 25 mg Q6H PRN Administration ITCHING Escitalopram Oxala te 10 mg 11/02/20 09:00 11/02/20 09:46 Escitalopram 10 Mg Tablet PO 10 mg DAILY JM Administration Glucagon 1 mg 10/28/20 14:47 Glucagon 1 Mg/Ml Inj 1 Ml IM ONCE PRN Adult Acute Hypog lycemia Prot. Protocol Heparin Sodium (Be ef Lung) 5,000 unit 10/28/20 15:30 11/02/20 23:25 Heparin 5,000 Un it/Ml Inj 1 Ml SUBCUT 5,000 unit Q8H JM Administration Hydroxyzine Pamoat e 25 mg 10/28/20 14:47 11/03/20 02:27 Hydroxyzine 25 M g Capsule PO 25 mg TID PRN Administration Itching Dextrose 500 mls @ 100 mls /hr 10/28/20 14:47 D5w IV ONCE PRN Adult Acute Hypog lycemia Prot Protocol Norepinephrine Bit artrate 4 mg 254 mls @ 0 mls/h r 10/28/20 18:40 10/29/20 03:12 / Dextrose IV 2 mcg/min .Q0M JM 7.6 mls/hr Titration Protocol Per Protocol Insulin Aspart 0 unit 10/28/20 18:00 11/02/20 20:38 Insulin Aspart 1 00 Unit/1 Ml SUBCUT 8 unit WM&BEDTIME JM Administration Protocol Metoprolol Tartrat e 37.5 mg 11/02/20 18:00 11/02/20 18:01 Metoprolol Tartr ate 25 Mg Tablet PO 37.5 mg BID JM Administration Morphine Sulfate 2 mg 10/28/20 14:47 Morphine 4 Mg/Ml Sdv 1 Ml IVP Q4H PRN SEVERE PAIN Ondansetron HCl 4 mg 10/28/20 14:47 Ondansetron 2 Mg /Ml Sdv 2 Ml IVP Q6H PRN NAUSEA AND VOMITI NG Pantoprazole Sodiu m 40 mg 10/29/20 09:00 11/02/20 09:[address] 40 Mg Tablet PO 40 mg DAILY JM Administration Potassium Chloride 40 meq 11/01/20 09:00 11/02/20 09:45 Potassium Chlori de Er 20 Meq Table t PO 40 meq DAILY JM Administration Senna/Docusate Sod ium 1 tab 10/28/20 18:00 11/02/20 18:00 Sennosides-Docus ate Tablet PO 1 tab BID JM Administration Sodium Chloride 1 spray 11/02/20 16:59 11/02/20 17:06 Saline Nasal Spr ay 44ml Btl NASAL 1 spray PRN PRN Administration DRYNESS Trazodone HCl 100 mg 10/28/20 21:00 11/02/20 20:37 Trazodone 100 Mg Tablet PO 100 mg BEDTIME JM Administration Penicillins Allergy (Verified 05/05/20 08:39) Unknown Vitals/I&O/Wt Last Vital Signs Temp 97.7 F 11/03/20 04:00 Pulse 116 H 11/03/20 06:00 Resp 28 H 11/03/20 06:00 BP 100/55 11/03/20 06:00 Pulse Ox 91 11/03/20 06:00 11/02/20 11/03/20 11/03/20 22:59 06:59 14:59 Intake Total 120 / 355 240 / 595 Output Total 300 / 300 275 / 575 Balance -180 / 55 - Weight last 48 hrs Weight 92.164 kg Physical Exam Const: COMMON NORMALS: no acute distress, patient oriented x3 and alert GENERAL APPEARANCE: cooperative, comfortable, ill appearing, frail appearing and appears older than stated age NUTRITIONAL APPEARANCE: obese morbidly obese ORIENTATION/CONSCIOUSNESS: Yes awake OTHER: -appears fatigued, resting quietly in bed HENMT: COMMON NORMALS: normocephalic, atraumatic, hearing grossly normal bilaterally and moist oral mucous membranes HEAD & SCALP: normocephalic and atraumatic Eye: COMMON NORMALS: Equal, round and reactive pupils present, EOMs intact bilaterally and conjunctivae normal CONJUNCTIVA: Yes conjunctivae normal PUPIL: Yes Equal, round and reactive pupils present Neck/C-Spine: COMMON NORMALS: full ROM GENERAL: Yes normal visual inspection and Yes trachea midline Chest: OTHER: -healed sternotomy scar Resp: COMMON NORMALS: normal respiratory effort, No retractions and No use of accessory muscles EFFORT & INSPECTION: Yes able to speak in complete sentences, Yes symmetric chest movement and Yes tachypneic AUSCULTATION: diminished lung sounds OTHER: -on RA Cardio: COMMON NORMALS: regular rate, S1 normal heart sound present, S2 normal heart sound present and No murmurs present (Cardio) RATE: regular rate RHYTHM: abnormal rhythm irregularly irregular HEART SOUNDS: S1 normal heart sound present and S2 normal heart sound present OTHER: -intermittently irregular rhythm on telemetry vs. paced rhythm -low normal BP GI: COMMON NORMALS: Normal to inspection, nondistended, normoactive bowel sounds present, Soft to palpation and non-tender INSPECTION: Yes central obesity PALPATION: Yes Soft to palpation : BLADDER/KIDNEY EXAM: Yes catheter in place Catheter type (Female): urethral Extremity: COMMON NORMALS: normal to inspection, full ROM and no pedal edema NARRATIVE EXTREMITY EXAM: -1-2+ pitting edema of bilateral LEs Neuro: COMMON NORMALS: patient oriented x3, moves all extremities, no focal motor deficits and no sensory deficits noted SENSORIUM/ORIENTATION: Yes alert OTHER: -generally very weak Psych: COMMON NORMALS: mental status grossly normal, Normal thought process present, cooperative and speech normal SPEECH: Yes normal speech MOOD & AFFECT: Yes Flat affect present THOUGHT PROCESS: Normal thought process present Skin: COMMON NORMALS: no rashes or lesions noted, no jaundice, no petechiae and no mottling GENERAL SKIN EXAM: no rashes or lesions noted Urinary Catheter Management^: Slater: Cath Placed During This Visit: yes Reason for Continuing Indwelling Catheter: Accurate Measurement of Urinary Output in Critically Ill Patients Urinary Catheter Date of Insertion: 10/28/20 Urinary Catheter Time of Insertion: 12:10 Data : 11/03/20 03:15 11/03/20 03:15 Micro: Microbiology 10/28/20 12:01 Blood Culture - Final Blood NO GROWTH AFTER 5 DAYS A&P Assessment and plan (1) SANDY (acute kidney injury): -SANDY superimposed on CKD stage IV -Baseline creatinine appears to be around 2 -Secondary to dehydration and poor oral intake -Has Slater catheter in place, continue to monitor urine output closely -renal function gradually improving, renally dose meds, avoid nephrotoxins -Nephrology evaluation appreciated -off IVF; encourage oral hydration -Hypokalemia, hyponatremia, elevated anion gap metabolic acidosis; ongoing replacement of electrolytes, close monitoring of electrolytes, improving Status: Acute (2) Hypotension: -Noted to be hypotensive likely secondary to degree of dehydration with minimal oral intake over the past several weeks -on IVF with caution secondary to underlying CHF due to risk for fluid overload -continue to hold diuretics and oral antihypertensives for now -Close monitoring of vital signs especially blood pressure -Currently meets sepsis criteria as evidenced by hypotension, tachypnea, leukocytosis; no clear source of infection at this time as chest x-ray unremarkable, urinalysis shows trace bacteria but is otherwise benign, CT scan of the abdomen and pelvis is also unremarkable for source of infection. Lactic acid is within normal limits, she is currently afebrile. Due to overall ill appearance, hypotension and underlying comorbidities, will cover with broad-spectrum IV antibiotics at this time. Given overall improvement, will d/c IV antibiotics -negative rapid COVID-19 testing -albumin x 1 dose; additional doses as needed -blood cx: 12/05 bottles from initial set grew coagulase negative staph, likely contaminants. Repeat set negative Status: Acute Qualifiers: Hypotension type: unspecified hypotension type Qualified Code(s): I95.9 - Hypotension, unspecified (3) Hypokalemia: -Secondary to poor oral intake -Replacement ongoing -continue to trend K Status: Acute (4) CKD (chronic kidney disease) stage 4, GFR 15-29 ml/min: -Follows up with Dr. Swain as an outpatient Status: Chronic (5) CHF (congestive heart failure): -Clinically she does have some evidence of edema in her bilateral lower extremities part of which is chronic; this seems more likely secondary to poor nutritional status and to acutely decompensated CHF -Echo: EF=55%, moderate pulmonary HTN (65), flattened septum consistent with RV volume overload, biatrial enlargement, moderate-severe MR, moderate -intermittent diuresis -continue to monitor vital signs -Telemetry monitoring -BNP quite elevated (>10,000), no evidence of effusions on x-ray though noted to have small pericardial effusion, small right pleural effusion, small amount of ascites on CT scan of the abdomen and pelvis -follows up with Dr. Pavon Status: Acute Qualifiers: Heart failure chronicity: chronic Heart failure type: systolic Qualified Code(s): I50.22 - Chronic systolic (congestive) heart failure (6) Generalized weakness: -Likely multifactorial given physical deconditioning, dehydration, poor oral intake, electrolyte abnormalities, impaired renal function -Strict fall precautions -PT/OT/ST evaluations appreciated; participation limited due to lack of motivation Status: Acute (7) HTN (hypertension): -hold oral antihypertensives secondary to hypotension Status: Chronic Qualifiers: Hypertension type: essential hypertension Qualified Code(s): I10 - Essential (primary) hypertension (8) Diabetes: -last A1c at goal (6.2) -Accucheks, ISS, hold scheduled insulin given poor oral intake; hold oral hypoglycemic agents, hypoglycemia precautions -cardiac consistent carb diet (mechanical soft) as tolerated Status: Chronic Qualifiers: Chronic kidney disease stage: stage 4 (severe) Diabetes mellitus complication detail: with chronic kidney disease Diabetes mellitus complication status: with kidney complications Diabetes mellitus medical terminologist insulin use: with medical terminologist use Diabetes mellitus type: type 2 Qualified Code(s): E11.22 - Type 2 diabetes mellitus with diabetic chronic kidney disease; N18.4 - Chronic kidney disease, stage 4 (severe); Z79.4 - custodial (current) use of insulin Additional A&P Information -hx of severe MR and TR s/p mitral and tricuspid valve repair, Maze procedure: done at [facility] in 12/2018 -Morbid obesity: BMI-33 kg/m2 though overall nutrition status is quite poor -hx of PE; on AC with Xarelto; hold for now -CAD s/p CABG -Chronic atrial fibrillation; on AC with Xarelto, digoxin discontinued by cardio, on Amiodarone -has dual chamber pacemaker in place -HTN -Chronic normocytic anemia; baseline Hg around 9-11 -Affect seems to be quite depressed, formal psychiatry evaluation appreciated and started on Lexapro. Depression seems to be playing a role in terms of her lack of participation in therapy, out of bed activity and even simple tasks such as feeding herself or answering her phone -GI ppx with PPI -DVT ppx with heparin -Dispo: needs SNF placement, agreeable. Previously living at home alone with services and family support. In light of increased generalized weakness, poor oral intake with significant dehydration as noted above, and ability for 24/7 supervision at this time she needs to be in a monitored environment. Agreeable only to [facility], not currently taking new patients. -Code status: DNR, ok with intubation -guarded prognosis due to underlying comorbidities, hypotension, dehydration, poor oral intake -transfer to [facility]SU today Attestations Medical Necessity Statement*: Patient requires hospitalization for continued management of acute renal impairment, optimization of BP and HR control, continued intermittent diuresis. Time Spent in Patient Care: 16 - 35 minutes (>than 50% of time spent in counselling and/or direct pt care on unit). Coding Level of Care Code Acute Video Machines Mechanic for Chg Fwd Exam Comprehensive Diagnoses SANDY (acute kidney injury) N17.9 Hypotension I95.9 Hypotension type: unspecified hypotension type Hypokalemia E87.6 CKD (chronic kidney disease) stage 4, GFR 15-29 ml/min N18.4 CHF (congestive heart failure) I50.22 Heart failure chronicity: chronic Heart failure type: systolic Generalized weakness R53.1 HTN (hypertension) I10 Hypertension type: essential hypertension Diabetes E11.22; N18.4; Z79.4 Chronic kidney disease stage: stage 4 (severe) Diabetes mellitus complication detail: with chronic kidney disease Diabetes mellitus complication status: with kidney complications Diabetes mellitus medical terminologist insulin use: with halfway use Diabetes mellitus type: type 2
[2020-11-03] MEDS: heparin 5,000 unit/mL INJ 1 mL 5000 UNIT SUBCUT (08:03)
[2020-11-03] MEDS: metoprolol tartrate 25 mg Tablet 37.5 MG PO (08:11)
[2020-11-03 09:06] LABS: Glucose Point of Care 259 mg/dL (70-110)
--- NOTE | 2020-11-03 11:57 | PM.PN ---
Subjective Subjective: Interval history: remains withdrawn, refusing medications today urine output noted to be 575mL only recorded mild global edema, but she is breathing comfortably poor oral intake, but no other uremic Sx per se Medications: Reviewed: Yes Medication Review Details: Active Medications Generic Name Dose Route Start Last Admin Trade Name Freq PRN Reason Stop Dose Admin Acetaminophen 650 mg 10/28/20 14:47 10/29/20 21:03 Acetaminophen 32 5 Mg Tablet PO 650 mg Q6H PRN Administration MILD PAIN Amiodarone HCl 200 mg 10/29/20 09:00 11/02/20 09:45 Amiodarone 200 M g Tablet PO 200 mg DAILY JM Administration Atorvastatin Calci um 20 mg 10/28/20 21:00 11/02/20 20:37 Atorvastatin 40 Mg Tablet PO 20 mg BEDTIME JM Administration Clotrimazole 1 applic 10/28/20 18:00 11/02/20 18:01 Clotrimazole 1% Cream 30 Gm TOPICAL 1 applic BID JM Administration Dextrose 25 ml 10/28/20 14:47 Dextrose 50% Syr luma 50 Ml IVP ONCE PRN hypoglycemia prot ocol Protocol Dextrose 50 ml 10/28/20 14:47 Dextrose 50% Syr luma 50 Ml IVP PRN PRN hypoglycemia prot ocol Protocol Diphenhydramine HC l 25 mg 11/03/20 05:43 11/03/20 05:51 Diphenhydramine 25 Mg Capsule PO 25 mg Q6H PRN Administration ITCHING Escitalopram Oxala te 10 mg 11/02/20 09:00 11/02/20 09:46 Escitalopram 10 Mg Tablet PO 10 mg DAILY JM Administration Glucagon 1 mg 10/28/20 14:47 Glucagon 1 Mg/Ml Inj 1 Ml IM ONCE PRN Adult Acute Hypog lycemia Prot. Protocol Heparin Sodium (Be ef Lung) 5,000 unit 10/28/20 15:30 11/02/20 23:25 Heparin 5,000 Un it/Ml Inj 1 Ml SUBCUT 5,000 unit Q8H JM Administration Hydroxyzine Pamoat e 25 mg 10/28/20 14:47 11/03/20 02:27 Hydroxyzine 25 M g Capsule PO 25 mg TID PRN Administration Itching Dextrose 500 mls @ 100 mls /hr 10/28/20 14:47 D5w IV ONCE PRN Adult Acute Hypog lycemia Prot Protocol Norepinephrine Bit artrate 4 mg 254 mls @ 0 mls/h r 10/28/20 18:40 10/29/20 03:12 / Dextrose IV 2 mcg/min .Q0M JM 7.6 mls/hr Titration Protocol Per Protocol Insulin Aspart 0 unit 10/28/20 18:00 11/02/20 20:38 Insulin Aspart 1 00 Unit/1 Ml SUBCUT 8 unit WM&BEDTIME JM Administration Protocol Metoprolol Tartrat e 37.5 mg 11/02/20 18:00 11/02/20 18:01 Metoprolol Tartr ate 25 Mg Tablet PO 37.5 mg BID JM Administration Morphine Sulfate 2 mg 10/28/20 14:47 Morphine 4 Mg/Ml Sdv 1 Ml IVP Q4H PRN SEVERE PAIN Ondansetron HCl 4 mg 10/28/20 14:47 Ondansetron 2 Mg /Ml Sdv 2 Ml IVP Q6H PRN NAUSEA AND VOMITI NG Pantoprazole Sodiu m 40 mg 10/29/20 09:00 11/02/20 09:[address] 40 Mg Tablet PO 40 mg DAILY JM Administration Potassium Chloride 40 meq 11/01/20 09:00 11/02/20 09:45 Potassium Chlori de Er 20 Meq Table t PO 40 meq DAILY JM Administration Senna/Docusate Sod ium 1 tab 10/28/20 18:00 11/02/20 18:00 Sennosides-Docus ate Tablet PO 1 tab BID JM Administration Sodium Chloride 1 spray 11/02/20 16:59 11/02/20 17:06 Saline Nasal Spr ay 44ml Btl NASAL 1 spray PRN PRN Administration DRYNESS Trazodone HCl 100 mg 10/28/20 21:00 11/02/20 20:37 Trazodone 100 Mg Tablet PO 100 mg BEDTIME JM Administration Penicillins Allergy (Verified 05/05/20 08:39) Unknown Vitals/I&O/Wt Last Vital Signs Temp 97.7 F 11/03/20 04:00 Pulse 116 H 11/03/20 08:00 Resp 28 H 11/03/20 08:00 BP 100/55 11/03/20 08:00 Pulse Ox 91 11/03/20 06:00 11/02/20 11/03/20 11/03/20 22:59 06:59 14:59 Intake Total 120 / 355 240 / 595 10 Output Total 300 / 300 275 / 575 Balance -180 / 55 -35 / 20 -15 / -15 Weight last 48 hrs Weight 92.164 kg Weight 92.164 kg Physical Exam Narrative: EXAM NARRATIVE: Constitutional: Awake, conversant, HEENT: Wet mucosa, no jvp, non icteric Lungs: Bilaterally clear without discernible wheeze, rales in all lung zones CVS: S1 S2, no murmurs Abdo: Soft, BS ok Ext 4: 2-3+ edema, peripheral perfusion with no cyanosis Neurological: Grossly non-focal Urinary Catheter Management^: Slater: Cath Placed During This Visit: yes Reason for Continuing Indwelling Catheter: Accurate Measurement of Urinary Output in Critically Ill Patients Urinary Catheter Date of Insertion: 10/28/20 Urinary Catheter Time of Insertion: 12:10 Data : 11/03/20 03:15 11/03/20 03:15 Micro: Microbiology 10/28/20 12:01 Blood Culture - Final Blood NO GROWTH AFTER 5 DAYS A&P Additional A&P Information 1. SANDY; pre-renal/hypoperfusion, CRS - Creatinine coming down - Intermittent Lasix dosing; she received some yesterday, refusing meds today - Avoid the usuals 2. Hemodynamics - Afib with intermittent RVR; Bps being maintained on Metoprolol and Amiodarone; tachycardic and refusing meds today 3. Lytes - K low, being replaced but she is refusing meds - DC sodium bicarbonate due to extra sodium 4. OOB to chair, PT, OT - DC planning Onofre Dove MD Nephrology [phone] Patient seen and examined via telemedicine, with the assistance of the bedside RN Attestations Medical Necessity Statement*: eval for sandy Coding Level of Care Code Acute Vaccine Specialist for Braeden Kuhn
[2020-11-03 12:12] LABS: Glucose Point of Care 213 mg/dL (70-110)
--- NOTE | 2020-11-03 15:24 | P.PN_ITS ---
Subjective NPU Subjective: Interval history: Lizzie presents today on her second day of the Lexapro continuing to endorse significant depression. The picture is getting clear that she has been depressed for some time and this complaint of itchiness has been an issue since she left the hospital the last time. It is unclear whether this represents an issue with the medication or medication combination, a reflection of the sequela of one of her myriad's of medical conditions, something neuropathic or something psychogenic but it is the center piece of her complaint. Continues to say that if this is how things are going to be all the time she does not really want to be around. She could make no commentary about pluses or minuses of the Lexapro. And she did refuse medication earlier, but her [id number]'s present and were hoping to utilize her assistance in getting her medications in. Mental Status Exam MSE Comments: This is an obese older white female with hospital gown on with limited grooming and almost negligible eye contact. No abnormal movements except for psychomotor retardation. Mostly cooperative with exam in mild to moderate distress. Speech was decreased rate and volume. Mood described as depressed, affect congruent. Thought process organized, thought content: Dilma blake endorsed suicidal but denied homicidal ideation and also reported a passive wish, there were no delusions reported or noted, she denied any auditory or visual hallucinations. Attention and concentration were intact and memory was mostly reliable but none were formally tested. She is alert and oriented x3. Insight and judgment were fair and impulse control appears fair. Vitals/I&O/Wt Last Vital Signs Temp 97.7 F 11/03/20 14:58 Pulse 111 H 11/03/20 14:58 Resp 19 H 11/03/20 14:58 BP 90/69 11/03/20 14:58 Pulse Ox 91 11/03/20 14:58 11/03/20 11/03/20 11/03/20 06:59 14:59 22:59 Intake Total 240 / 595 Output Total 275 / 575 125 / 125 Balance - -105 / -105 Weight last 48 hrs Weight 92.164 kg Weight 92.164 kg Physical Exam Urinary Catheter Management^: Slater: Cath Placed During This Visit: yes Reason for Continuing Indwelling Catheter: Accurate Measurement of Urinary Output in Critically Ill Patients Urinary Catheter Date of Insertion: 10/28/20 Urinary Catheter Time of Insertion: 12:10 Data NPU : 11/03/20 03:15 11/03/20 03:15 Micro: Microbiology 10/28/20 13:22 Blood Culture - Final Blood Coagulase negativ staphylococc 10/28/20 12:01 Blood Culture - Final Blood NO GROWTH AFTER 5 DAYS Microbiology 10/28/20 13:22 Blood Blood Culture - Final Coagulase negativ staphylococc 10/28/20 12:01 Blood Blood Culture - Final NO GROWTH AFTER 5 DAYS A&P Additional A&P Information (1) Anemia: (2) Hyponatremia: (3) Metabolic acidosis: (4) Acute kidney injury superimposed on chronic kidney disease: (5) Generalized weakness: (6) CKD (chronic kidney disease) stage 4, GFR 15-29 ml/min: (7) Hypokalemia: (8) Fungal skin disease: (9) Pleural effusion: (10) Atrial fibrillation: (11) Hypoglycemia: (12) Hyperkalemia: (13) Status post mitral valve annuloplasty: (14) H/O tricuspid valve annuloplasty: (15) Pacemaker: (16) Diabetes: (17) HTN (hypertension): (18) CHF (congestive heart failure): (19) Hypoxia: (20) Pneumonia: (21) SANDY (acute kidney injury): (22) Hypotension: (23) UTI (urinary tract infection): (24) Elevated d-dimer: (25) Depression: (26) Anxiety: This is a 65-year-old white female with a long history of multiple medical comorbidities who presents with some history of anxiety and depression with worsening recently reporting an openness to initiate an antidepressant. 1. Continue current medication. 2. We'll continue to monitor to determine whether inpatient geriatric psychiatric treatment is necessary. Agree with residential placement. 3. We'll continue to follow. 4. We will explore whether there is something that was added at the last hospitalization that could be contributing to the reported pruritus. Attestations NPU Medical Necessity Statement*: N/A. Please refer to the primary team's note for medical necessity. However we will continue to monitor to determine whether inpatient psychiatric services are needed for safety. Agree that a residential facility would provide the safety necessary given her need for 24-hour observation at this point. Coding Level of Care Code Acute District Sales Manager for Braeden Khun
[2020-11-03 17:30] LABS: Glucose Point of Care 228 mg/dL (70-110)
--- NOTE | 2020-11-03 18:25 | PC.NURSE ---
Pt refused all oral meds and one shot of heparin today, even after lots of education and crushing and placing in applesauce. Did not eat anything all day either. She states that she cannot swallow, although I witnessed patient drink half a glass of water with no issues. Still complains of itching after multiple interventions.
--- NOTE | 2020-11-03 19:40 | PC.NURSE ---
Patient yelling down the east. Patient c/o of itchy back! Can't reach it. Scratched her back and applied lotion for comfort. Patient instructed on use of call le and placed directly in her hand. Patient continues to yell down the east. Instructed patient that she could not be heard at the nurse's station if she yells and instructed again on the use of call le. Placed call le in patient's hand with finger on the button. Patient hit the call le several times while this RN was at bedside.
[2020-11-03] MEDS: trazodone 100 mg Tablet PO (21:17)
[2020-11-03] MEDS: atorvastatin 40 mg Tablet 20 MG PO (21:17)
[2020-11-03 21:30] LABS: Glucose Point of Care 158 mg/dL (70-110)
[2020-11-04] VITALS (30 sets, daily range): BP systolic 90–116; BP diastolic 56–80; PULSE 89–121; RESP 9–30; TEMP 36.1–36.9; O2SAT 82–99
[2020-11-04] MEDS: diphenhydrAMINE 25 mg Capsule PO ×2 (00:34→22:51)
[2020-11-04] MEDS: morphine 4 mg/mL SDV 1 mL 2 MG IVP ×2 (00:34→22:53)
[2020-11-04] MEDS: hyDROXYzine 25 mg Capsule PO ×2 (00:34→22:51)
[2020-11-04] MEDS: heparin 5,000 unit/mL INJ 1 mL 5000 UNIT SUBCUT ×4 (00:35→22:52)
--- NOTE | 2020-11-04 02:23 | PC.NURSE ---
Patient's heart rate 120s-140 sustained. Patient had refused many medications yesterday (11/04). Informed Dr Molina and received order for Metoprolol 5mg IVP once and may repeat 1 time if needed.
[2020-11-04] MEDS: metoprolol tartrate 1 mg/1 mL SDV 5 mL 5 MG IV (02:42)
[2020-11-04 04:39] LABS: Basophils # 0.1 10^3/uL (0.0-0.1); Basophils % 0.6 %; Eosinophils # 0.4 10^3/uL (0.0-0.8); Eosinophils % 3.7 %; Hematocrit 35.2 % (37.0-47.0); Hemoglobin 10.7 g/dL (11.5-15.3); Lymphocytes # 0.5 10^3/uL (0.8-4.8); Mean Corpuscular HGB Conc 30.4 g/dL (30.0-36.0); Mean Corpuscular Hemoglobin 23.6 pg (28.0-34.0); Mean Corpuscular Volume 77.5 fL (81-99); Monocytes # 0.8 10^3/uL (0.2-0.9); Monocytes % 7.5 %; Neutrophils # 7.69 10^3/uL (1.8-7.7); Neutrophils % 76.4 %; Nucleated Red Blood Cells % 0.2 %; Platelet Count 133 10^3/cmm (130-400); Red Blood Count 4.54 10^6/uL (4.1-5.3); Red Cell Distribution Width 20.4 % (12.1-15.1); White Blood Count 10.1 10^3/uL (4.0-10.0)
[2020-11-04 04:55] LABS: Anion Gap 18.1 (5-19); Carbon Dioxide 27 mmol/L (22-29); Chloride 90 mmol/L (98-107); Glomerular Filtration Rate 22.4 mL/min (90-130); Glucose 249 mg/dL (65-115); Osmolality Calculated 307 mOsm/kg (285-295); Potassium 4.1 mmol/L (3.5-5.1); Sodium 131 mmol/L (136-145)
[2020-11-04 05:21] LABS: Blood Urea Nitrogen 86 mg/dL (8-23)
[2020-11-04 06:26] LABS: Slide Review Slide Review Perform
[2020-11-04 06:43] LABS: Glucose Point of Care 255 mg/dL (70-110)
--- NOTE | 2020-11-04 07:15 | PC.NURSE ---
Patient hollered out most of the night. Patient was given benadryl and vistril for itching. Morphine also given for pain. Relief found for the pain but not for itching. Patient is very attention seeking and needs a lot of time and attention.
--- NOTE | 2020-11-04 08:33 | PC.NURSE ---
Pt refused her oral scheduled medications Educated pt on her cardiac meds, antidepressant meds, protonix. Encouarage patient but she said, No. I don't want to take them. I asked her if i can give the heparin injections SQ to prevent her from blood clot formation, she is okay for me to administer the injection. Pt refused her breakfast and insulin as well.
--- NOTE | 2020-11-04 08:44 | PM.PN ---
Subjective Subjective: Interval history: This morning refused to take her morning medications, refused breakfast as well. Noted to continue to be fixated on pruritus often calling out to have someone her back for her. Flat affect and overall depression as well as intermittent irritability and demanding behavior persists. Was noted to be tachycardic throughout the night, likely due to having not taken her medications. Blood pressure stable, remains on room air, had 350 mL urine output overnight. Disposition pending. Renal function stable today. Medications: Reviewed: Yes Medication Review Details: Active Medications Generic Name Dose Route Start Last Admin Trade Name Freq PRN Reason Stop Dose Admin Acetaminophen 650 mg 10/28/20 14:47 10/29/20 21:03 Acetaminophen 32 5 Mg Tablet PO 650 mg Q6H PRN Administration MILD PAIN Amiodarone HCl 200 mg 10/29/20 09:00 11/03/20 11:35 Amiodarone 200 M g Tablet PO Not Given DAILY JM Atorvastatin Calci um 20 mg 10/28/20 21:00 11/03/20 21:17 Atorvastatin 40 Mg Tablet PO 20 mg BEDTIME JM Administration Clotrimazole 1 applic 10/28/20 18:00 11/03/20 17:55 Clotrimazole 1% Cream 30 Gm TOPICAL Not Given BID JM Dextrose 25 ml 10/28/20 14:47 Dextrose 50% Syr luma 50 Ml IVP ONCE PRN hypoglycemia prot ocol Protocol Dextrose 50 ml 10/28/20 14:47 Dextrose 50% Syr luma 50 Ml IVP PRN PRN hypoglycemia prot ocol Protocol Diphenhydramine HC l 25 mg 11/03/20 05:43 11/04/20 00:34 Diphenhydramine 25 Mg Capsule PO 25 mg Q6H PRN Administration ITCHING Escitalopram Oxala te 10 mg 11/02/20 09:00 11/03/20 11:38 Escitalopram 10 Mg Tablet PO Not Given DAILY JM Glucagon 1 mg 10/28/20 14:47 Glucagon 1 Mg/Ml Inj 1 Ml IM ONCE PRN Adult Acute Hypog lycemia Prot. Protocol Heparin Sodium (Be ef Lung) 5,000 unit 10/28/20 15:30 11/04/20 08:36 Heparin 5,000 Un it/Ml Inj 1 Ml SUBCUT 5,000 unit Q8H JM Administration Hydroxyzine Pamoat e 25 mg 10/28/20 14:47 11/04/20 00:34 Hydroxyzine 25 M g Capsule PO 25 mg TID PRN Administration Itching Dextrose 500 mls @ 100 mls /hr 10/28/20 14:47 D5w IV ONCE PRN Adult Acute Hypog lycemia Prot Protocol Insulin Aspart 0 unit 10/28/20 18:00 11/04/20 08:32 Insulin Aspart 1 00 Unit/1 Ml SUBCUT Not Given WM&BEDTIME JM Protocol Metoprolol Tartrat e 37.5 mg 11/02/20 18:00 11/03/20 17:55 Metoprolol Tartr ate 25 Mg Tablet PO Not Given BID JM Metoprolol Tartrat e 5 mg 11/04/20 02:21 11/04/20 02:42 Metoprolol Tartr ate 1 Mg/1 Ml Sdv 5 Ml IV 5 mg PRN PRN Administration HEART RATE-HIGH Morphine Sulfate 2 mg 10/28/20 14:47 11/04/20 00:34 Morphine 4 Mg/Ml Sdv 1 Ml IVP 2 mg Q4H PRN Administration SEVERE PAIN Ondansetron HCl 4 mg 10/28/20 14:47 Ondansetron 2 Mg /Ml Sdv 2 Ml IVP Q6H PRN NAUSEA AND VOMITI NG Pantoprazole Sodiu m 40 mg 10/29/20 09:00 11/03/20 11:[address] 40 Mg Tablet PO Not Given DAILY [facility] Potassium Chloride 40 meq 11/01/20 09:00 11/03/20 11:38 Potassium Chlori de Er 20 Meq Table t PO Not Given DAILY JM Senna/Docusate Sod ium 1 tab 10/28/20 18:00 11/03/20 17:55 Sennosides-Docus ate Tablet PO Not Given BID [facility]1983 Sodium Chloride 1 spray 11/02/20 16:59 11/02/20 17:06 Saline Nasal Spr ay 44ml Btl NASAL 1 spray PRN PRN Administration DRYNESS Trazodone HCl 100 mg 10/28/20 21:00 11/03/20 21:17 Trazodone 100 Mg Tablet PO 100 mg BEDTIME JM Administration Penicillins Allergy (Verified 05/05/20 08:39) Unknown Vitals/I&O/Wt Last Vital Signs Temp 98.4 F 11/04/20 07:28 Pulse 111 H 11/04/20 07:28 Resp 20 H 11/04/20 07:28 BP 97/79 11/04/20 07:28 Pulse Ox 93 11/04/20 07:28 11/03/20 11/04/20 11/04/20 22:59 06:59 14:59 Intake Total 160 / 180 100 / 280 Output Total 225 / 350 250 / 600 Balance -65 / -170 -150 / -320 Weight last 48 hrs Weight 89.811 kg Weight 92.164 kg Weight 92.164 kg Physical Exam Const: COMMON NORMALS: no acute distress, patient oriented x3 and alert GENERAL APPEARANCE: cooperative, comfortable, ill appearing, frail appearing and appears older than stated age NUTRITIONAL APPEARANCE: obese morbidly obese ORIENTATION/CONSCIOUSNESS: Yes awake OTHER: -appears fatigued, resting quietly in bed HENMT: COMMON NORMALS: normocephalic, atraumatic, hearing grossly normal bilaterally and moist oral mucous membranes HEAD & SCALP: normocephalic and atraumatic MOUTH: moist mucous membranes abnormal Details: parched Eye: COMMON NORMALS: Equal, round and reactive pupils present, EOMs intact bilaterally and conjunctivae normal CONJUNCTIVA: Yes conjunctivae normal PUPIL: Yes Equal, round and reactive pupils present Neck/C-Spine: COMMON NORMALS: full ROM GENERAL: Yes normal visual inspection and Yes trachea midline Chest: OTHER: -healed sternotomy scar Resp: COMMON NORMALS: normal respiratory effort, No retractions and No use of accessory muscles EFFORT & INSPECTION: Yes able to speak in complete sentences, Yes symmetric chest movement and Yes tachypneic AUSCULTATION: diminished lung sounds OTHER: -on RA Cardio: COMMON NORMALS: regular rate, S1 normal heart sound present, S2 normal heart sound present and No murmurs present (Cardio) RATE: regular rate RHYTHM: abnormal rhythm irregularly irregular HEART SOUNDS: S1 normal heart sound present and S2 normal heart sound present OTHER: -intermittently irregular rhythm on telemetry vs. paced rhythm -low normal BP GI: COMMON NORMALS: Normal to inspection, nondistended, normoactive bowel sounds present, Soft to palpation and non-tender INSPECTION: Yes central obesity PALPATION: Yes Soft to palpation : BLADDER/KIDNEY EXAM: Yes catheter in place Catheter type (Female): urethral Extremity: COMMON NORMALS: normal to inspection, full ROM and no pedal edema NARRATIVE EXTREMITY EXAM: -1-2+ pitting edema of bilateral LEs Neuro: COMMON NORMALS: patient oriented x3, moves all extremities, no focal motor deficits and no sensory deficits noted SENSORIUM/ORIENTATION: Yes alert OTHER: -generally very weak Psych: COMMON NORMALS: mental status grossly normal, Normal thought process present, cooperative and speech normal ACTIVITY/MOTOR BEHAVIOR: Yes Avoids eye contact (attititude/behavior) SPEECH: Yes normal speech MOOD & AFFECT: Yes depressed mood, Yes irritable and Yes Flat affect present THOUGHT PROCESS: Normal thought process present Skin: COMMON NORMALS: no rashes or lesions noted, no jaundice, no petechiae and no mottling GENERAL SKIN EXAM: no rashes or lesions noted Urinary Catheter Management^: Slater: Cath Placed During This Visit: yes Reason for Continuing Indwelling Catheter: Accurate Measurement of Urinary Output in Critically Ill Patients Urinary Catheter Date of Insertion: 10/28/20 Urinary Catheter Time of Insertion: 12:10 Data : 11/04/20 03:10 11/04/20 03:10 Micro: Microbiology 10/28/20 13:22 Blood Culture - Final Blood Coagulase negativ staphylococc A&P Assessment and plan (1) SANDY (acute kidney injury): -SANDY superimposed on CKD stage IV -Baseline creatinine appears to be around 2 -Secondary to dehydration and poor oral intake -Has Slater catheter in place, continue to monitor urine output closely -renal function stable with Cr-2.2, renally dose meds, avoid nephrotoxins -Nephrology evaluation appreciated -off IVF; encourage oral hydration -Hypokalemia, hyponatremia, elevated anion gap metabolic acidosis; ongoing replacement of electrolytes, close monitoring of electrolytes, improving, AG closed Status: Acute (2) Hypotension: -Noted to be hypotensive likely secondary to degree of dehydration with minimal oral intake over the past several weeks -off IVF, encourage oral hydration -intermittent diuresis -BP has remained low normal consistently; continue to monitor vital signs -Currently meets sepsis criteria as evidenced by hypotension, tachypnea, leukocytosis; no clear source of infection at this time as chest x-ray unremarkable, urinalysis shows trace bacteria but is otherwise benign, CT scan of the abdomen and pelvis is also unremarkable for source of infection. Lactic acid is within normal limits, she is currently afebrile. Due to overall ill appearance, hypotension and underlying comorbidities, will cover with broad-spectrum IV antibiotics at this time. Given overall improvement, will d/c IV antibiotics -negative rapid COVID-19 testing -albumin x 1 dose; additional doses as needed -blood cx: 12/05 bottles from initial set grew coagulase negative staph, likely contaminants. Repeat set negative Status: Acute Qualifiers: Hypotension type: unspecified hypotension type Qualified Code(s): I95.9 - Hypotension, unspecified (3) Hypokalemia: -Secondary to poor oral intake -Replacement ongoing -continue to trend K Status: Acute (4) CKD (chronic kidney disease) stage 4, GFR 15-29 ml/min: -Follows up with Dr. Swain as an outpatient Status: Chronic (5) CHF (congestive heart failure): -Clinically she does have some evidence of edema in her bilateral lower extremities part of which is chronic; this seems more likely secondary to poor nutritional status and to acutely decompensated CHF -Echo: EF=55%, moderate pulmonary HTN (65), flattened septum consistent with RV volume overload, biatrial enlargement, moderate-severe MR, moderate -intermittent diuresis -continue to monitor vital signs -Telemetry monitoring -BNP quite elevated (>10,000), no evidence of effusions on x-ray though noted to have small pericardial effusion, small right pleural effusion, small amount of ascites on CT scan of the abdomen and pelvis -follows up with Dr. Pavon Status: Acute Qualifiers: Heart failure chronicity: chronic Heart failure type: systolic Qualified Code(s): I50.22 - Chronic systolic (congestive) heart failure (6) Generalized weakness: -Likely multifactorial given physical deconditioning, dehydration, poor oral intake, electrolyte abnormalities, impaired renal function -Strict fall precautions -PT/OT/ST evaluations appreciated; participation limited due to lack of motivation Status: Acute (7) HTN (hypertension): -hold oral antihypertensives secondary to hypotension Status: Chronic Qualifiers: Hypertension type: essential hypertension Qualified Code(s): I10 - Essential (primary) hypertension (8) Diabetes: -last A1c at goal (6.2) -Accucheks, ISS, hold scheduled insulin given poor oral intake; hold oral hypoglycemic agents, hypoglycemia precautions -cardiac consistent carb diet (mechanical soft) as tolerated Status: Chronic Qualifiers: Chronic kidney disease stage: stage 4 (severe) Diabetes mellitus complication detail: with chronic kidney disease Diabetes mellitus complication status: with kidney complications Diabetes mellitus exterminator helper termite insulin use: with exterminator helper termite use Diabetes mellitus type: type 2 Qualified Code(s): E11.22 - Type 2 diabetes mellitus with diabetic chronic kidney disease; N18.4 - Chronic kidney disease, stage 4 (severe); Z79.4 - intermediate teacher (current) use of insulin Additional A&P Information -hx of severe MR and TR s/p mitral and tricuspid valve repair, Maze procedure: done at [facility] in 12/2018 -Morbid obesity: BMI-33 kg/m2 though overall nutrition status is quite poor -hx of PE; on AC with Xarelto; hold for now -CAD s/p CABG -Chronic atrial fibrillation; on AC with Xarelto, digoxin discontinued by cardio, on Amiodarone -has dual chamber pacemaker in place -HTN -Chronic normocytic anemia; baseline Hg around 9-11 -Affect seems to be quite depressed, formal psychiatry evaluation appreciated and started on Lexapro. Depression seems to be playing a role in terms of her lack of participation in therapy, out of bed activity and even simple tasks such as feeding herself or answering her phone -GI ppx with PPI -DVT ppx with heparin -Dispo: needs SNF placement, agreeable. Previously living at home alone with services and family support. In light of increased generalized weakness, poor oral intake with significant dehydration as noted above, and ability for 24/7 supervision at this time she needs to be in a monitored environment. Agreeable only to [facility], not currently taking new patients. Reached out to [facility], declined. Will try alternative SNF -Code status: DNR, ok with intubation -guarded prognosis due to underlying comorbidities, hypotension, dehydration, poor oral intake, depression. Overall progress is extremely slow, hampered primarily by patient's lack of participation and refusal to take her medications routinely Attestations Medical Necessity Statement*: Patient requires hospitalization for continued management of acute renal impairment, continued monitoring of hemodynamic status, management of severe depression, pending appropriate disposition. Time Spent in Patient Care: 16 - 35 minutes (>than 50% of time spent in counselling and/or direct pt care on unit). Coding Level of Care Code Acute Butt Trimmer for g Fwd Exam Comprehensive Diagnoses SANDY (acute kidney injury) N17.9 Hypotension I95.9 Hypotension type: unspecified hypotension type Hypokalemia E87.6 CKD (chronic kidney disease) stage 4, GFR 15-29 ml/min N18.4 CHF (congestive heart failure) I50.22 Heart failure chronicity: chronic Heart failure type: systolic Generalized weakness R53.1 HTN (hypertension) I10 Hypertension type: essential hypertension Diabetes E11.22; N18.4; Z79.4 Chronic kidney disease stage: stage 4 (severe) Diabetes mellitus complication detail: with chronic kidney disease Diabetes mellitus complication status: with kidney complications Diabetes mellitus shelter insulin use: with exterminator helper termite use Diabetes mellitus type: type 2
--- NOTE | 2020-11-04 08:58 | PC.NURSE ---
Pt turned to right side lying, heels floated, kenny-cares provided, applied interdry to breast folds 2 pressure sores on buttocks,open to air.
--- NOTE | 2020-11-04 09:17 | DCPLANNER ---
IMM completed on 11/04/2020 @ 1581. Copy of rights given to pt.
--- NOTE | 2020-11-04 09:24 | PC.NURSE ---
Pt is screaming and yelling that we need to stop the itching on her back. Repositioned pt and help it scratch but she said it is not helping.
[2020-11-04 11:24] LABS: Glucose Point of Care 254 mg/dL (70-110)
--- NOTE | 2020-11-04 12:55 | P.MISC_ITS ---
Miscellaneous Note Purpose of Documentation: Renal Note Brief EMR reviewed, she remains stable from my perspective. Renal function close to baseline, will follow peripherally, please do not hesitate to call me should the renal team be of further service Onofre Dove MD [facility] Renal Telemed
--- NOTE | 2020-11-04 15:06 | PC.NURSE ---
Pt was screaming asking for water. I need water! Checked on patient and encouarage her to drink water in the styrofoam cup which was handed to her. Pt then stated, I don't think I can. I give the pt the cup and she then drink the water. She then said, I need ice chips. I told her, I will have to come back and get it. She started to get upset. Ice chips provided and she is eating her ice chips now.
--- NOTE | 2020-11-04 16:26 | PC.NURSE ---
Patient family discussed concerns with nurse regarding lexapro Rx. She stated that the patient had been taking it at a higher dose at home. This was confirmed by nurse. Prescription was clarified with Dr. Gilman. Physician gave telephone order to increase dose to 20 mg daily, first dose now. RBTO. Nurse to continue to monitor.
[2020-11-04] MEDS: escitalopram 10 mg Tablet 20 MG PO (16:36)
[2020-11-04 17:26] LABS: Glucose Point of Care 262 mg/dL (70-110)
--- NOTE | 2020-11-04 17:45 | PM.NPN ---
Subjective NPU Subjective: Interval history: Lizzie presented today with her [id number] in the room continuing to report depression but being a little more engaging. With some coaxing by the nurse, she did take her Lexapro. It was noted that her Lexapro was actually 20 mg at home which had not been restarted and she only missed about 5 days. So we discussed giving the Lexapro at 20 mg for the next few days and then increasing it to 30. Otherwise there are no changes and she is tolerating being in the cardiac stepdown unit. Reports of pruritus today. Mental Status Exam MSE Comments: This is an obese older white female with hospital gown on with limited grooming and almost negligible eye contact. No abnormal movements except for psychomotor retardation. Mostly cooperative with exam in less distress. Speech was limited and more normal rate and volume. Mood described as depressed, affect congruent. Thought process organized, thought content: Patient did not report suicidal or homicidal ideation, there were no delusions reported or noted, she denied any auditory or visual hallucinations. Attention and concentration were intact and memory was mostly reliable but none were formally tested. She is alert and oriented x3. Insight and judgment were fair and impulse control appears fair. Vitals/I&O/Wt Last Vital Signs Temp 97.0 F L 11/04/20 18:00 Pulse 89 11/04/20 18:00 Resp 25 H 11/04/20 18:00 BP 107/66 11/04/20 18:00 Pulse Ox 97 11/04/20 18:00 11/04/20 11/04/20 11/05/20 14:59 22:59 06:59 Output Total 200 / 200 150 / 350 Balance -200 / -200 -150 / -350 Weight last 48 hrs Weight 89.811 kg Weight 89.811 kg Weight 92.164 kg Physical Exam Urinary Catheter Management^: Slater: Cath Placed During This Visit: yes Reason for Continuing Indwelling Catheter: Acute Urinary Retention or Obstruction Urinary Catheter Date of Insertion: 10/28/20 Urinary Catheter Time of Insertion: 12:10 Data NPU : 11/04/20 03:10 11/04/20 03:10 Micro: Microbiology 10/30/20 13:06 Blood Culture - Final Blood NO GROWTH AFTER 5 DAYS 10/30/20 13:00 Blood Culture - Final Blood NO GROWTH AFTER 5 DAYS Microbiology 10/30/20 13:06 Blood Blood Culture - Final NO GROWTH AFTER 5 DAYS 10/30/20 13:00 Blood Blood Culture - Final NO GROWTH AFTER 5 DAYS A&P Additional A&P Information (1) Anemia: (2) Hyponatremia: (3) Metabolic acidosis: (4) Acute kidney injury superimposed on chronic kidney disease: (5) Generalized weakness: (6) CKD (chronic kidney disease) stage 4, GFR 15-29 ml/min: (7) Hypokalemia: (8) Fungal skin disease: (9) Pleural effusion: (10) Atrial fibrillation: (11) Hypoglycemia: (12) Hyperkalemia: (13) Status post mitral valve annuloplasty: (14) H/O tricuspid valve annuloplasty: (15) Pacemaker: (16) Diabetes: (17) HTN (hypertension): (18) CHF (congestive heart failure): (19) Hypoxia: (20) Pneumonia: (21) SANDY (acute kidney injury): (22) Hypotension: (23) UTI (urinary tract infection): (24) Elevated d-dimer: (25) Depression: (26) Anxiety: This is a 65-year-old white female with a long history of multiple medical comorbidities who presents with some history of anxiety and depression with worsening recently reporting an openness to initiate an antidepressant. 1. Continue current medication. Increase Lexapro to 20 mg p.o. every morning which is her standard dose the plan to increase it to 30 mg in 2 or 3 days. 2. We'll continue to monitor to determine whether inpatient geriatric psychiatric treatment is necessary. Agree with long term placement. 3. We'll continue to follow. Attestations NPU Medical Necessity Statement*: N/A. Please refer to the primary team's note for medical necessity. However we will continue to monitor to determine whether inpatient psychiatric services are needed for safety. Agree that a long term facility would provide the safety necessary given her need for 24-hour observation at this point. Coding Level of Care Code Acute Patient Svcs Mgr for Braeden Kuhn
[2020-11-04 20:33] LABS: Glucose Point of Care 246 mg/dL (70-110)
[2020-11-04] MEDS: trazodone 100 mg Tablet PO (22:52)
[2020-11-04] MEDS: atorvastatin 40 mg Tablet 20 MG PO (22:52)
[2020-11-05] VITALS (31 sets, daily range): BP systolic 81–115; BP diastolic 49–71; PULSE 71–106; RESP 11–50; TEMP 36.4–36.7; O2SAT 91–100
[2020-11-05 06:25] LABS: Basophils # 0.1 10^3/uL (0.0-0.1); Basophils % 0.6 %; Eosinophils # 0.5 10^3/uL (0.0-0.8); Eosinophils % 5.2 %; Hematocrit 35.6 % (37.0-47.0); Hemoglobin 10.6 g/dL (11.5-15.3); Lymphocytes # 0.5 10^3/uL (0.8-4.8); Lymphocytes % 5.1 %; Mean Corpuscular HGB Conc 29.8 g/dL (30.0-36.0); Mean Corpuscular Hemoglobin 23.2 pg (28.0-34.0); Mean Corpuscular Volume 78.1 fL (81-99); Monocytes # 0.7 10^3/uL (0.2-0.9); Monocytes % 7.6 %; Neutrophils # 6.86 10^3/uL (1.8-7.7); Neutrophils % 76.5 %; Nucleated Red Blood Cells % 0 %; Platelet Count 112 10^3/cmm (130-400); Red Blood Count 4.56 10^6/uL (4.1-5.3); Red Cell Distribution Width 20.6 % (12.1-15.1)
[2020-11-05 06:53] LABS: Anion Gap 17.3 (5-19); Calcium 9.3 mg/dL (8.5-10.5); Carbon Dioxide 29 mmol/L (22-29); Chloride 89 mmol/L (98-107); Glomerular Filtration Rate 21.3 mL/min (90-130); Potassium 4.3 mmol/L (3.5-5.1); Sodium 131 mmol/L (136-145)
[2020-11-05 07:00] LABS: Blood Urea Nitrogen 85 mg/dL (8-23)
[2020-11-05 07:21] LABS: Glucose Point of Care 244 mg/dL (70-110)
[2020-11-05 07:33] LABS: Glucose 246 mg/dL (65-115); Osmolality Calculated 306 mOsm/kg (285-295)
[2020-11-05] MEDS: heparin 5,000 unit/mL INJ 1 mL 5000 UNIT SUBCUT ×2 (07:40→15:55)
--- NOTE | 2020-11-05 08:52 | P.PN_ITS ---
Subjective Subjective: Interval history: Patient continues to refuse meals but did take her meds this morning, had 150 mL urine output overnight. Stable renal function with Cr-2.3. Stable BP, afebrile, on 2 L NC. Declined therapy this AM. Disposition pending. Medications: Reviewed: Yes Medication Review Details: Active Medications Generic Name Dose Route Start Last Admin Trade Name Freq PRN Reason Stop Dose Admin Acetaminophen 650 mg 10/28/20 14:47 10/29/20 21:03 Acetaminophen 32 5 Mg Tablet PO 650 mg Q6H PRN Administration MILD PAIN Amiodarone HCl 200 mg 10/29/20 09:00 11/04/20 09:23 Amiodarone 200 M g Tablet PO Not Given DAILY JM Atorvastatin Calci um 20 mg 10/28/20 21:00 11/04/20 22:52 Atorvastatin 40 Mg Tablet PO 20 mg BEDTIME JM Administration Clotrimazole 1 applic 10/28/20 18:00 11/04/20 17:50 Clotrimazole 1% Cream 30 Gm TOPICAL Not Given BID JM Dextrose 25 ml 10/28/20 14:47 Dextrose 50% Syr luma 50 Ml IVP ONCE PRN hypoglycemia prot ocol Protocol Dextrose 50 ml 10/28/20 14:47 Dextrose 50% Syr luma 50 Ml IVP PRN PRN hypoglycemia prot ocol Protocol Diphenhydramine HC l 25 mg 11/03/20 05:43 11/04/20 22:51 Diphenhydramine 25 Mg Capsule PO 25 mg Q6H PRN Administration ITCHING Escitalopram Oxala te 20 mg 11/04/20 17:00 11/04/20 16:36 Escitalopram 10 Mg Tablet PO 20 mg DAILY JM Administration Glucagon 1 mg 10/28/20 14:47 Glucagon 1 Mg/Ml Inj 1 Ml IM ONCE PRN Adult Acute Hypog lycemia Prot. Protocol Heparin Sodium (Be ef Lung) 5,000 unit 10/28/20 15:30 11/05/20 07:40 Heparin 5,000 Un it/Ml Inj 1 Ml SUBCUT 5,000 unit Q8H JM Administration Hydroxyzine Pamoat e 25 mg 10/28/20 14:47 11/04/20 22:51 Hydroxyzine 25 M g Capsule PO 25 mg TID PRN Administration Itching Dextrose 500 mls @ 100 mls /hr 10/28/20 14:47 D5w IV ONCE PRN Adult Acute Hypog lycemia Prot Protocol Insulin Aspart 0 unit 10/28/20 18:00 11/05/20 07:39 Insulin Aspart 1 00 Unit/1 Ml SUBCUT 6 unit WM&BEDTIME JM Administration Protocol Metoprolol Tartrat e 37.5 mg 11/02/20 18:00 11/04/20 17:50 Metoprolol Tartr ate 25 Mg Tablet PO Not Given BID JM Metoprolol Tartrat e 5 mg 11/04/20 02:21 11/04/20 02:42 Metoprolol Tartr ate 1 Mg/1 Ml Sdv 5 Ml IV 5 mg PRN PRN Administration HEART RATE-HIGH Morphine Sulfate 2 mg 10/28/20 14:47 11/04/20 22:53 Morphine 4 Mg/Ml Sdv 1 Ml IVP 2 mg Q4H PRN Administration SEVERE PAIN Ondansetron HCl 4 mg 10/28/20 14:47 Ondansetron 2 Mg /Ml Sdv 2 Ml IVP Q6H PRN NAUSEA AND VOMITI NG Pantoprazole Sodiu m 40 mg 10/29/20 09:00 11/04/20 09:[address] 40 Mg Tablet PO Not Given DAILY JM Potassium Chloride 40 meq 11/01/20 09:00 11/04/20 09:23 Potassium Chlori de Er 20 Meq Table t PO Not Given DAILY JM Senna/Docusate Sod ium 1 tab 10/28/20 18:00 11/04/20 17:50 Sennosides-Docus ate Tablet PO Not Given BID JM Sodium Chloride 1 spray 11/02/20 16:59 11/02/20 17:06 Saline Nasal Spr ay 44ml Btl NASAL 1 spray PRN PRN Administration DRYNESS Trazodone HCl 100 mg 10/28/20 21:00 11/04/20 22:52 Trazodone 100 Mg Tablet PO 100 mg BEDTIME JM Administration Penicillins Allergy (Verified 05/05/20 08:39) Unknown Vitals/I&O/Wt Last Vital Signs Temp 97.6 F 11/05/20 07:35 Pulse 95 11/05/20 07:35 Resp 22 H 11/05/20 07:35 BP 89/67 11/05/20 07:35 Pulse Ox 99 11/05/20 07:35 11/04/20 11/05/20 11/05/20 22:59 06:59 14:59 Intake Total 120 / 120 Output Total 200 / 200 150 / 350 Balance -200 / -200 -150 / -350 120 / 120 Weight last 48 hrs Weight 89.811 kg Weight 89.811 kg Weight 92.164 kg Physical Exam Const: COMMON NORMALS: no acute distress, patient oriented x3 and alert GENERAL APPEARANCE: cooperative, comfortable, ill appearing, frail appearing and appears older than stated age NUTRITIONAL APPEARANCE: obese morbidly obese ORIENTATION/CONSCIOUSNESS: Yes awake OTHER: -appears fatigued, resting quietly in bed HENMT: COMMON NORMALS: normocephalic, atraumatic, hearing grossly normal bilaterally and moist oral mucous membranes HEAD & SCALP: normocephalic and atraumatic MOUTH: moist mucous membranes abnormal Details: parched Eye: COMMON NORMALS: Equal, round and reactive pupils present, EOMs intact bilaterally and conjunctivae normal CONJUNCTIVA: Yes conjunctivae normal PUPIL: Yes Equal, round and reactive pupils present Neck/C-Spine: COMMON NORMALS: full ROM GENERAL: Yes normal visual inspection and Yes trachea midline Chest: OTHER: -healed sternotomy scar Resp: COMMON NORMALS: normal respiratory effort, No retractions and No use of accessory muscles EFFORT & INSPECTION: Yes able to speak in complete sentences, Yes symmetric chest movement and Yes tachypneic AUSCULTATION: diminished lung sounds OTHER: -on RA Cardio: COMMON NORMALS: regular rate, S1 normal heart sound present, S2 normal heart sound present and No murmurs present (Cardio) RATE: regular rate RHYTHM: abnormal rhythm irregularly irregular HEART SOUNDS: S1 normal heart sound present and S2 normal heart sound present OTHER: -intermittently irreg ular rhythm on telemetry vs. paced rhythm -low normal BP GI: COMMON NORMALS: Normal to inspection, nondistended, normoactive bowel sounds present, Soft to palpation and non-tender INSPECTION: Yes central obesity PALPATION: Yes Soft to palpation : BLADDER/KIDNEY EXAM: Yes catheter in place Catheter type (Female): urethral Extremity: COMMON NORMALS: normal to inspection, full ROM and no pedal edema NARRATIVE EXTREMITY EXAM: -1-2+ pitting edema of bilateral LEs Neuro: COMMON NORMALS: patient oriented x3, moves all extremities, no focal motor deficits and no sensory deficits noted SENSORIUM/ORIENTATION: Yes alert OTHER: -generally very weak Psych: COMMON NORMALS: mental status grossly normal, Normal thought process present, cooperative and speech normal ACTIVITY/MOTOR BEHAVIOR: Yes Avoids eye contact (attititude/behavior) SPEECH: Yes normal speech MOOD & AFFECT: Yes depressed mood, Yes irritable and Yes Flat affect present THOUGHT PROCESS: Normal thought process present Skin: COMMON NORMALS: no rashes or lesions noted, no jaundice, no petechiae and no mottling GENERAL SKIN EXAM: no rashes or lesions noted Urinary Catheter Management^: Slater: Cath Placed During This Visit: yes Reason for Continuing Indwelling Catheter: Acute Urinary Retention or Obstruction Urinary Catheter Date of Insertion: 10/28/20 Urinary Catheter Time of Insertion: 12:10 Data : 11/05/20 06:05 11/05/20 06:05 Micro: Microbiology 10/30/20 13:06 Blood Culture - Final Blood NO GROWTH AFTER 5 DAYS 10/30/20 13:00 Blood Culture - Final Blood NO GROWTH AFTER 5 DAYS A&P Assessment and plan (1) SANDY (acute kidney injury): -SANDY superimposed on CKD stage IV -Baseline creatinine appears to be around 2 -Secondary to dehydration and poor oral intake -Has Slater catheter in place, continue to monitor urine output closely -renal function stable with Cr-2.2-2.3, renally dose meds, avoid nephrotoxins -Nephrology evaluation appreciated -off IVF; encourage oral hydration -Hypokalemia, hyponatremia, elevated anion gap metabolic acidosis; ongoing replacement of electrolytes, close monitoring of electrolytes, improving, AG trinidad sed Status: Acute (2) Hypotension: -Noted to be hypotensive likely secondary to degree of dehydration with minimal oral intake over the past several weeks -off IVF, encourage oral hydration -intermittent diuresis -BP has remained low normal consistently; continue to monitor vital signs -Currently meets sepsis criteria as evidenced by hypotension, tachypnea, leukocytosis; no clear source of infection at this time as chest x-ray unremarkable, urinalysis shows trace bacteria but is otherwise benign, CT scan of the abdomen and pelvis is also unremarkable for source of infection. Lactic acid is within normal limits, she is currently afebrile. Due to overall ill appearance, hypotension and underlying comorbidities, will cover with broad- spectrum IV antibiotics at this time. Given overall improvement, will d/c IV antibiotics -negative rapid COVID-19 testing -albumin x 1 dose; additional doses as needed -blood cx: 12/05 bottles from initial set grew coagulase negative staph, likely contaminants. Repeat set negative Status: Acute Qualifiers: Hypotension type: unspecified hypotension type Qualified Code(s): I95.9 - Hypotension, unspecified (3) Hypokalemia: -Secondary to poor oral intake -Replacement ongoing -continue to trend K Status: Acute (4) CKD (chronic kidney disease) stage 4, GFR 15-29 ml/min: -Follows up with Dr. Swain as an outpatient Status: Chronic (5) CHF (congestive heart failure): -Clinically she does have some evidence of edema in her bilateral lower extremities part of which is chronic; this seems more likely secondary to poor nutritional status and to acutely decompensated CHF -Echo: EF=55%, moderate pulmonary HTN (65), flattened septum consistent with RV volume overload, biatrial enlargement, moderate-severe MR, moderate -intermittent diuresis -continue to monitor vital signs -Telemetry monitoring -BNP quite elevated (>10,000), no evidence of effusions on x-ray though noted to have small pericardial effusion, small right pleural effusion, small amount of ascites on CT scan of the abdomen and pelvis -follows up with Dr. Pavon Status: Acute Qualifiers: Heart failure chronicity: chronic Heart failure type: systolic Q ualified Code(s): I50.22 - Chronic systolic (congestive) heart failure (6) Generalized weakness: -Likely multifactorial given physical deconditioning, dehydration, poor oral intake, electrolyte abnormalities, impaired renal function -Strict fall precautions -PT/OT/ST evaluations appreciated; participation limited due to lack of motivation Status: Acute (7) HTN (hypertension): -hold oral antihypertensives secondary to hypotension Status: Chronic Qualifiers: Hypertension type: essential hypertension Qualified Code(s): I10 - Essential (primary) hypertension (8) Diabetes: -last A1c at goal (6.2) -Accucheks, ISS, hold scheduled insulin given poor oral intake; hold oral hypoglycemic agents, hypoglycemia precautions -cardiac consistent carb diet (mechanical soft) as tolerated Status: Chronic Qualifiers: Chronic kidney disease stage: stage 4 (severe) Diabetes mellitus complication detail: with chronic kidney disease Diabetes mellitus complication status: with kidney complications Diabetes mellitus intermediate project manager insulin use: with intermediate project manager use Diabetes mellitus type: type 2 Qualified Code(s): E11.22 - Type 2 diabetes mellitus with diabetic chronic kidney disease; N18.4 - Chronic kidney disease, stage 4 (severe); Z79.4 - residential (current) use of insulin Additional A&P Information -hx of severe MR and TR s/p mitral and tricuspid valve repair, Maze procedure: done at [facility] in 12/2018 -Morbid obesity: BMI-35 kg/m2 though overall nutrition status is quite poor -hx of PE; on AC with Xarelto; hold for now -CAD s/p CABG -Chronic atrial fibrillation; on AC with Xarelto, digoxin discontinued by cardio, on Amiodarone -has dual chamber pacemaker in place -HTN -Chronic normocytic anemia; baseline Hg around 9-11 -Affect seems to be quite depressed, formal psychiatry evaluation appreciated and started on Lexapro. Depression seems to be playing a role in terms of her lack of participation in therapy, out of bed activity and even simple tasks such as feeding herself or answering her phone -GI ppx with PPI -DVT ppx with heparin -Dispo: needs SNF placement, agreeable. Previously living at home alone with services and family support. In light of increased generalized weakness, poor oral intake with significant dehydration as noted above, and ability for 24/7 supervision at this time she needs to be in a monitored environment. [facility] ot currently taking new patients. Reached out to [facility], declined. Will try alternative SNF -Code status: DNR, ok with intubation -guarded prognosis due to underlying comorbidities, hypotension, dehydration, poor oral intake, depression. Overall progress is extremely slow, hampered primarily by patient's lack of participation, poor oral intake and refusal to take her medications routinely Attestations Medical Necessity Statement*: Patient requires hospitalization for continued management of depression, acute renal impairment, now with stable renal function; pending appropriate disposition. Time Spent in Patient Care: 16 - 35 minutes (>than 50% of time spent in counselling and/or direct pt care on unit) . 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 Diagnoses SANDY (acute kidney injury) N17.9 Hypotension I95.9 Hypotension type: unspecified hypotension type Hypokalemia E87.6 CKD (chronic kidney disease) stage 4, GFR 15-29 ml/min N18.4 CHF (congestive heart failure) I50.22 Heart failure chronicity: chronic Heart failure type: systolic Generalized weakness R53.1 HTN (hypertension) I10 Hypertension type: essential hypertension Diabetes E11.22; N18.4; Z79.4 Chronic kidney disease stage: stage 4 (severe) Diabetes mellitus complication detail: with chronic kidney disease Diabetes mellitus complication status: with kidney complications Diabetes mellitus group home insulin use: with intermediate project manager use Diabetes mellitus type: type 2
--- NOTE | 2020-11-05 09:00 | PC.NURSE ---
Dr. Silva notified patient BP 100/68 HR 90s. Physician gave telephone order to administer all morning meds, rBTO.
[2020-11-05] MEDS: escitalopram 10 mg Tablet 20 MG PO (09:12)
[2020-11-05] MEDS: potassium chloride ER 20 mEq Tablet 40 MEQ PO (09:12)
[2020-11-05] MEDS: sennosides-docusate Tablet 1 TAB PO ×2 (09:12→17:55)
[2020-11-05] MEDS: metoprolol tartrate 25 mg Tablet 37.5 MG PO ×2 (09:12→17:55)
[2020-11-05] MEDS: amiodarone 200 mg Tablet PO (09:13)
[2020-11-05] MEDS: pantoprazole DR 40 mg Tablet PO (09:13)
[2020-11-05 10:45] LABS: Glucose Point of Care 227 mg/dL (70-110)
--- NOTE | 2020-11-05 15:06 | PM.NPN ---
Subjective NPU Subjective: Interval history: Lizzie continues to endorse feeling crappy but certainly better than she was feeling in the ICU and maybe a slight bit better than yesterday. Some complaining about itching but that is greatly diminished. She denies any new or pressing issues. Mental Status Exam MSE Comments: This is an obese older white female with hospital gown on with limited grooming and almost negligible eye contact. No abnormal movements except for psychomotor retardation. Mostly cooperative with exam in less distress. Speech was limited and more normal rate and volume. Mood described as depressed, affect congruent. Thought process organized, thought content: Patient did not report suicidal or homicidal ideation, there were no delusions reported or noted, she denied any auditory or visual hallucinations. Attention and concentration were intact and memory was mostly reliable but none were formally tested. She is alert and oriented x3. Insight and judgment were fair and impulse control appears fair. Vitals/I&O/Wt Last Vital Signs Temp 98.1 F 11/05/20 03:43 Pulse 106 H 11/05/20 03:43 Resp 21 H 11/05/20 03:43 BP 103/67 11/05/20 03:43 Pulse Ox 96 11/05/20 03:43 11/05/20 14:59 Intake Total 120 / 120 Output Total Balance 120 / 120 Weight last 48 hrs Weight 90.718 kg Weight 89.811 kg Weight 89.811 kg Physical Exam Urinary Catheter Management^: Slater: Cath Placed During This Visit: yes Reason for Continuing Indwelling Catheter: Acute Urinary Retention or Obstruction Urinary Catheter Date of Insertion: 10/28/20 Urinary Catheter Time of Insertion: 12:10 Data NPU : 11/06/20 07:52 11/06/20 07:52 A&P Additional A&P Information (1) Anemia: (2) Hyponatremia: (3) Metabolic acidosis: (4) Acute kidney injury superimposed on chronic kidney disease: (5) Generalized weakness: (6) CKD (chronic kidney disease) stage 4, GFR 15-29 ml/min: (7) Hypokalemia: (8) Fungal skin disease: (9) Pleural effusion: (10) Atrial fibrillation: (11) Hypoglycemia: (12) Hyperkalemia: (13) Status post mitral valve annuloplasty: (14) H/O tricuspid valve annuloplasty: (15) Pacemaker: (16) Diabetes: (17) HTN (hypertension): (18) CHF (congestive heart failure): (19) Hypoxia: (20) Pneumonia: (21) SANDY (acute kidney injury): (22) Hypotension: (23) UTI (urinary tract infection): (24) Elevated d-dimer: (25) Depression: (26) Anxiety: This is a 65-year-old white female with a long history of multiple medical comorbidities who presents with some history of anxiety and depression with worsening recently reporting an openness to initiate an antidepressant. 1. Continue current medication. Increase Lexapro to 30 mg in 2 days. 2. We'll continue to monitor to determine whether inpatient geriatric psychiatric treatment is necessary. Agree with long-term placement. 3. We'll continue to follow. Attestations NPU Medical Necessity Statement*: N/A. Please refer to the primary team's note for medical necessity. However we will continue to monitor to determine whether inpatient psychiatric services are needed for safety. Agree that a long-term facility would provide the safety necessary given her need for 24-hour observation at this point. 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
[2020-11-05 16:49] LABS: Glucose Point of Care 213 mg/dL (70-110)
--- NOTE | 2020-11-05 18:30 | PC.NURSE ---
Shift Summary Patient assisted to chair for sponge bath today. 2 person assist with gait belt. Patient required moderate assistance with bathing. Patient participated by washing face and upper body and arms. Patient tolerated activity well. Patient remained in chair through dinner. Patient took all oral medications today, made eye contact with staff, and would engage in small conversation. Patient was assisted back to bed following dinner. Patient positioned right side lying. Call light within reach. bed in low locked position. No needs identified at this time. Nurse to continue to monitor.
--- NOTE | 2020-11-05 18:38 | PC.NURSE ---
Dr. Silva notified patient has only had 100 ml of urine output over shift. Oral intake increased while up in chair during day. Physician to order lasix. Continue to monitor. RBTO.
[2020-11-05] MEDS: FUROsemide 10 mg/mL SDV 4mL 40 MG IVP (19:35)
[2020-11-05 20:27] LABS: Glucose Point of Care 224 mg/dL (70-110)
[2020-11-05] MEDS: trazodone 100 mg Tablet PO (20:55)
[2020-11-05] MEDS: diphenhydrAMINE 25 mg Capsule PO (20:55)
[2020-11-05] MEDS: hyDROXYzine 25 mg Capsule PO (20:55)
[2020-11-05] MEDS: atorvastatin 40 mg Tablet 20 MG PO (20:55)
[2020-11-06] VITALS (13 sets, daily range): BP systolic 78–118; BP diastolic 48–73; PULSE 62–94; RESP 10–48; TEMP 35.9–36.6; O2SAT 94–100
[2020-11-06] MEDS: heparin 5,000 unit/mL INJ 1 mL 5000 UNIT SUBCUT ×4 (00:19→23:22)
[2020-11-06 06:13] LABS: Glucose Point of Care 179 mg/dL (70-110)
[2020-11-06 08:14] LABS: Basophils # 0.1 10^3/uL (0.0-0.1); Basophils % 0.5 %; Eosinophils # 0.4 10^3/uL (0.0-0.8); Eosinophils % 3.5 %; Hematocrit 36.6 % (37.0-47.0); Hemoglobin 10.9 g/dL (11.5-15.3); Lymphocytes # 0.7 10^3/uL (0.8-4.8); Lymphocytes % 6.3 %; Mean Corpuscular HGB Conc 29.8 g/dL (30.0-36.0); Mean Corpuscular Hemoglobin 23.2 pg (28.0-34.0); Mean Corpuscular Volume 77.9 fL (81-99); Monocytes # 0.9 10^3/uL (0.2-0.9); Monocytes % 7.9 %; Neutrophils # 8.61 10^3/uL (1.8-7.7); Neutrophils % 77.6 %; Nucleated Red Blood Cells % 0 %; Platelet Count 124 10^3/cmm (130-400); Red Cell Distribution Width 20.8 % (12.1-15.1); White Blood Count 11.1 10^3/uL (4.0-10.0)
[2020-11-06 08:39] LABS: Anion Gap 15.3 (5-19); Calcium 8.8 mg/dL (8.5-10.5); Carbon Dioxide 29 mmol/L (22-29); Chloride 88 mmol/L (98-107); Glucose 197 mg/dL (65-115); Osmolality Calculated 295 mOsm/kg (285-295); Potassium 5.3 mmol/L (3.5-5.1); Sodium 127 mmol/L (136-145)
[2020-11-06 08:43] LABS: Blood Urea Nitrogen 85 mg/dL (8-23)
[2020-11-06 08:51] LABS: Slide Review Slide Review Perform
[2020-11-06] MEDS: metoprolol tartrate 25 mg Tablet 37.5 MG PO ×2 (09:02→17:41)
[2020-11-06] MEDS: escitalopram 10 mg Tablet 20 MG PO (09:03)
[2020-11-06] MEDS: potassium chloride ER 20 mEq Tablet 40 MEQ PO (09:03)
[2020-11-06] MEDS: pantoprazole DR 40 mg Tablet PO (09:03)
[2020-11-06] MEDS: sennosides-docusate Tablet 1 TAB PO ×2 (09:03→17:42)
[2020-11-06] MEDS: amiodarone 200 mg Tablet PO (09:03)
--- NOTE | 2020-11-06 09:31 | PM.PN ---
Subjective Subjective: Interval history: Remains oliguric, had 100 mL urine output documented overnight, 100 mL during the day shift yesterday. Noted worsening in renal function today with Cr up to 2.8, as well as hyponatremia and hyperkalemia. Slater catheter remains in place, BP stable, tachypneic, HR wnl, afebrile. Did receive a dose of lasix 40 mg IV yesterday evening. Continues to spend most of her time in bed sleeping. Given some IVF per nephrology as may actually be dehydrated. Medications: Reviewed: Yes Medication Review Details: Active Medications Generic Name Dose Route Start Last Admin Trade Name Freq PRN Reason Stop Dose Admin Acetaminophen 650 mg 10/28/20 14:47 10/29/20 21:03 Acetaminophen 32 5 Mg Tablet PO 650 mg Q6H PRN Administration MILD PAIN Amiodarone HCl 200 mg 10/29/20 09:00 11/06/20 09:03 Amiodarone 200 M g Tablet PO 200 mg DAILY JM Administration Atorvastatin Calci um 20 mg 10/28/20 21:00 11/05/20 20:55 Atorvastatin 40 Mg Tablet PO 20 mg BEDTIME JM Administration Clotrimazole 1 applic 10/28/20 18:00 11/06/20 09:03 Clotrimazole 1% Cream 30 Gm TOPICAL Not Given BID JM Dextrose 25 ml 10/28/20 14:47 Dextrose 50% Syr luma 50 Ml IVP ONCE PRN hypoglycemia prot ocol Protocol Dextrose 50 ml 10/28/20 14:47 Dextrose 50% Syr luma 50 Ml IVP PRN PRN hypoglycemia prot ocol Protocol Diphenhydramine HC l 25 mg 11/03/20 05:43 11/05/20 20:55 Diphenhydramine 25 Mg Capsule PO 25 mg Q6H PRN Administration ITCHING Escitalopram Oxala te 20 mg 11/04/20 17:00 11/06/20 09:03 Escitalopram 10 Mg Tablet PO 20 mg DAILY JM Administration Glucagon 1 mg 10/28/20 14:47 Glucagon 1 Mg/Ml Inj 1 Ml IM ONCE PRN Adult Acute Hypog lycemia Prot. Protocol Heparin Sodium (Be ef Lung) 5,000 unit 10/28/20 15:30 11/06/20 07:38 Heparin 5,000 Un it/Ml Inj 1 Ml SUBCUT 5,000 unit Q8H JM Administration Hydroxyzine Pamoat e 25 mg 10/28/20 14:47 11/05/20 20:55 Hydroxyzine 25 M g Capsule PO 25 mg TID PRN Administration Itching Dextrose 500 mls @ 100 mls /hr 10/28/20 14:47 D5w IV ONCE PRN Adult Acute Hypog lycemia Prot Protocol Insulin Aspart 0 unit 10/28/20 18:00 11/06/20 07:38 Insulin Aspart 1 00 Unit/1 Ml SUBCUT 2 unit WM&BEDTIME JM Administration Protocol Metoprolol Tartrat e 37.5 mg 11/02/20 18:00 11/06/20 09:02 Metoprolol Tartr ate 25 Mg Tablet PO 37.5 mg BID JM Administration Metoprolol Tartrat e 5 mg 11/04/20 02:21 11/04/20 02:42 Metoprolol Tartr ate 1 Mg/1 Ml Sdv 5 Ml IV 5 mg PRN PRN Administration HEART RATE-HIGH Morphine Sulfate 2 mg 10/28/20 14:47 11/04/20 22:53 Morphine 4 Mg/Ml Sdv 1 Ml IVP 2 mg Q4H PRN Administration SEVERE PAIN Ondansetron HCl 4 mg 10/28/20 14:47 Ondansetron 2 Mg /Ml Sdv 2 Ml IVP Q6H PRN NAUSEA AND VOMITI NG Pantoprazole Sodiu m 40 mg 10/29/20 09:00 11/06/20 09:[address] 40 Mg Tablet PO 40 mg DAILY JM Administration Potassium Chloride 40 meq 11/01/20 09:00 11/06/20 09:03 Potassium Chlori de Er 20 Meq Table t PO 40 meq DAILY JM Administration Senna/Docusate Sod ium 1 tab 10/28/20 18:00 11/06/20 09:03 Sennosides-Docus ate Tablet PO 1 tab BID JM Administration Sodium Chloride 1 spray 11/02/20 16:59 11/02/20 17:06 Saline Nasal Spr ay 44ml Btl NASAL 1 spray PRN PRN Administration DRYNESS Trazodone HCl 100 mg 10/28/20 21:00 11/05/20 20:55 Trazodone 100 Mg Tablet PO 100 mg BEDTIME JM Administration Penicillins Allergy (Verified 05/05/20 08:39) Unknown Vitals/I&O/Wt Last Vital Signs Temp 96.6 F L 11/06/20 04:00 Pulse 90 11/06/20 06:00 Resp 43 H 11/06/20 04:00 BP 94/57 11/06/20 04:00 Pulse Ox 94 11/06/20 04:00 11/05/20 11/06/20 11/06/20 22:59 06:59 14:59 Intake Total 480 / 600 Output Total 150 / 150 50 / 200 Balance 330 / 450 -50 / 400 Weight last 48 hrs Weight 90.718 kg Weight 89.811 kg Physical Exam Const: COMMON NORMALS: no acute distress, patient oriented x3 and alert GENERAL APPEARANCE: cooperative, comfortable, ill appearing, frail appearing and appears older than stated age NUTRITIONAL APPEARANCE: obese morbidly obese ORIENTATION/CONSCIOUSNESS: Yes awake OTHER: -appears fatigued, resting quietly in bed HENMT: COMMON NORMALS: normocephalic, atraumatic, hearing grossly normal bilaterally and moist oral mucous membranes HEAD & SCALP: normocephalic and atraumatic MOUTH: moist mucous membranes abnormal Details: parched Eye: COMMON NORMALS: Equal, round and reactive pupils present, EOMs intact bilaterally and conjunctivae normal CONJUNCTIVA: Yes conjunctivae normal PUPIL: Yes Equal, round and reactive pupils present Neck/C-Spine: COMMON NORMALS: full ROM GENERAL: Yes normal visual inspection and Yes trachea midline Chest: OTHER: -healed sternotomy scar Resp: COMMON NORMALS: normal respiratory effort, No retractions and No use of accessory muscles EFFORT & INSPECTION: Yes able to speak in complete sentences, Yes symmetric chest movement and Yes tachypneic AUSCULTATION: diminished lung sounds OTHER: -on RA Cardio: COMMON NORMALS: regular rate, S1 normal heart sound present, S2 normal heart sound present and No murmurs present (Cardio) RATE: regular rate RHYTHM: abnormal rhythm irregularly irregular HEART SOUNDS: S1 normal heart sound present and S2 normal heart sound present OTHER: -intermittently irregular rhythm on telemetry vs. paced rhythm -low normal BP GI: COMMON NORMALS: Normal to inspection, nondistended, normoactive bowel sounds present, Soft to palpation and non-tender INSPECTION: Yes central obesity PALPATION: Yes Soft to palpation : BLADDER/KIDNEY EXAM: Yes catheter in place Catheter type (Female): urethral Extremity: COMMON NORMALS: normal to inspection, full ROM and no pedal edema NARRATIVE EXTREMITY EXAM: -1-2+ pitting edema of bilateral LEs Neuro: COMMON NORMALS: patient oriented x3, moves all extremities, no focal motor deficits and no sensory deficits noted SENSORIUM/ORIENTATION: Yes alert OTHER: -generally very weak Psych: COMMON NORMALS: mental status grossly normal, Normal thought process present, cooperative and speech normal ACTIVITY/MOTOR BEHAVIOR: Yes Avoids eye contact (attititude/behavior) SPEECH: Yes normal speech MOOD & AFFECT: Yes depressed mood, Yes irritable and Yes Flat affect present THOUGHT PROCESS: Normal thought process present Skin: COMMON NORMALS: no rashes or lesions noted, no jaundice, no petechiae and no mottling GENERAL SKIN EXAM: no rashes or lesions noted Urinary Catheter Management^: Slater: Cath Placed During This Visit: yes Reason for Continuing Indwelling Catheter: Acute Urinary Retention or Obstruction Urinary Catheter Date of Insertion: 10/28/20 Urinary Catheter Time of Insertion: 12:10 Data : 11/06/20 07:52 11/06/20 07:52 A&P Assessment and plan (1) SANDY (acute kidney injury): -SANDY superimposed on CKD stage IV -Baseline creatinine appears to be around 2 -Secondary to dehydration and poor oral intake -Has Slater catheter in place, continue to monitor urine output closely -renal function worsened today with noted oliguria. Cr up to 2.8. -renally dose meds, avoid nephrotoxins -Nephrology evaluation appreciated -off IVF; encourage oral hydration; may have some degree of dehydration given poor oral intake; trial of IVF -Hypokalemia, hyponatremia, elevated anion gap metabolic acidosis; ongoing replacement of electrolytes, close monitoring of electrolytes, impr AG closed Status: Acute (2) Hypotension: -Noted to be hypotensive likely secondary to degree of dehydration with minimal oral intake over the past several weeks -off IVF, encourage oral hydration -intermittent diuresis -BP has remained low normal consistently; continue to monitor vital signs -Currently meets sepsis criteria as evidenced by hypotension, tachypnea, leukocytosis; no clear source of infection at this time as chest x-ray unremarkable, urinalysis shows trace bacteria but is otherwise benign, CT scan of the abdomen and pelvis is also unremarkable for source of infection. Lactic acid is within normal limits, she is currently afebrile. Due to overall ill appearance, hypotension and underlying comorbidities, was covered with broad-spectrum IV antibiotics at this time. Given overall improvement, has been off IV antibiotics -negative rapid COVID-19 testing -albumin x 1 dose; additional doses as needed -blood cx: 12/05 bottles from initial set grew coagulase negative staph, likely contaminants. Repeat set negative Status: Acute Qualifiers: Hypotension type: unspecified hypotension type Qualified Code(s): I95.9 - Hypotension, unspecified (3) Hypokalemia: -Secondary to poor oral intake -Replacement on hold as now hyperkalemic -continue to trend K Status: Acute (4) CKD (chronic kidney disease) stage 4, GFR 15-29 ml/min: -Follows up with Dr. Swain as an outpatient Status: Chronic (5) CHF (congestive heart failure): -Clinically she does have some evidence of edema in her bilateral lower extremities part of which is chronic; this seems more likely secondary to poor nutritional status and to acutely decompensated CHF -Echo: EF=55%, moderate pulmonary HTN (65), flattened septum consistent with RV volume overload, biatrial enlargement, moderate-severe MR, moderate -intermittent diuresis -continue to monitor vital signs -Telemetry monitoring -BNP quite elevated (>10,000), no evidence of effusions on x-ray though noted to have small pericardial effusion, small right pleural effusion, small amount of ascites on CT scan of the abdomen and pelvis -follows up with Dr. Pavon Status: Acute Qualifiers: Heart failure chronicity: chronic Heart failure type: systolic Qualified Code(s): I50.22 - Chronic systolic (congestive) heart failure (6) Generalized weakness: -Likely multifactorial given physical deconditioning, dehydration, poor oral intake, electrolyte abnormalities, impaired renal function -Strict fall precautions -PT/OT/ST evaluations appreciated; participation limited due to lack of motivation Status: Acute (7) HTN (hypertension): -hold oral antihypertensives secondary to hypotension Status: Chronic Qualifiers: Hypertension type: essential hypertension Qualified Code(s): I10 - Essential (primary) hypertension (8) Diabetes: -last A1c at goal (6.2) -Accucheks, ISS, hold scheduled insulin given poor oral intake; hold oral hypoglycemic agents, hypoglycemia precautions -cardiac consistent carb diet (mechanical soft) as tolerated Status: Chronic Qualifiers: Chronic kidney disease stage: stage 4 (severe) Diabetes mellitus complication detail: with chronic kidney disease Diabetes mellitus complication status: with kidney complications Diabetes mellitus halfway insulin use: with halfway use Diabetes mellitus type: type 2 Qualified Code(s): E11.22 - Type 2 diabetes mellitus with diabetic chronic kidney disease; N18.4 - Chronic kidney disease, stage 4 (severe); Z79.4 - skilled nursing (current) use of insulin Additional A&P Information -hx of severe MR and TR s/p mitral and tricuspid valve repair, Maze procedure: done at [facility] in 12/2018 -Morbid obesity: BMI-35 kg/m2 though overall nutrition status is quite poor -hx of PE; on AC with Xarelto; hold for now -CAD s/p CABG -Chronic atrial fibrillation; on AC with Xarelto, digoxin discontinued by cardio, on Amiodarone -has dual chamber pacemaker in place -HTN -Chronic normocytic anemia; baseline Hg around 9-11 -Affect seems to be quite depressed, formal psychiatry evaluation appreciated and started on Lexapro. Depression seems to be playing a role in terms of her lack of participation in therapy, out of bed activity and even simple tasks such as feeding herself or answering her phone -GI ppx with PPI -DVT ppx with heparin -Dispo: needs SNF placement, agreeable. Previously living at home alone with services and family support. In light of increased generalized weakness, poor oral intake with significant dehydration as noted above, and ability for 24/7 supervision at this time she needs to be in a monitored environment. [facility] not currently taking new patients. Reached out to [facility], declined. Will try alternative SNF -Code status: DNR, ok with intubation -guarded prognosis due to underlying comorbidities, hypotension, dehydration, poor oral intake, depression. Overall progress is extremely slow, hampered primarily by patient's lack of participation, poor oral intake and refusal to take her medications routinely Attestations Medical Necessity Statement*: Patient requires hospitalization for continued management of acute renal impairment, noted oliguria and worsening Cr today. Time Spent in Patient Care: 16 - 35 minutes (>than 50% of time spent in counselling and/or direct pt care on unit). Coding Level of Care Code Acute Antisqueak Filler for g Fwd Exam Comprehensive Diagnoses SANDY (acute kidney injury) N17.9 Hypotension I95.9 Hypotension type: unspecified hypotension type Hypokalemia E87.6 CKD (chronic kidney disease) stage 4, GFR 15-29 ml/min N18.4 CHF (congestive heart failure) I50.22 Heart failure chronicity: chronic Heart failure type: systolic Generalized weakness R53.1 HTN (hypertension) I10 Hypertension type: essential hypertension Diabetes E11.22; N18.4; Z79.4 Chronic kidney disease stage: stage 4 (severe) Diabetes mellitus complication detail: with chronic kidney disease Diabetes mellitus complication status: with kidney complications Diabetes mellitus predatory animal exterminator insulin use: with predatory animal exterminator use Diabetes mellitus type: type 2
--- NOTE | 2020-11-06 09:32 | PC.SOCIAL ---
IMM Update Pg. 2 of IMM updated and reviewed with patient. Copy provided.
--- NOTE | 2020-11-06 11:25 | P.PN_ITS ---
Subjective Subjective: Interval history: Feels very weak, tired, apathetic She still has significant LE edema but she is immobile and not participating in therapy No overt uremic Sx Lasix given last night but poor response to diuretic therapy Medications: Reviewed: Yes Medication Review Details: Active Medications Generic Name Dose Route Start Last Admin Trade Name Freq PRN Reason Stop Dose Admin Acetaminophen 650 mg 10/28/20 14:47 10/29/20 21:03 Acetaminophen 32 5 Mg Tablet PO 650 mg Q6H PRN Administration MILD PAIN Amiodarone HCl 200 mg 10/29/20 09:00 11/06/20 09:03 Amiodarone 200 M g Tablet PO 200 mg DAILY JM Administration Atorvastatin Calci um 20 mg 10/28/20 21:00 11/05/20 20:55 Atorvastatin 40 Mg Tablet PO 20 mg BEDTIME JM Administration Clotrimazole 1 applic 10/28/20 18:00 11/06/20 09:03 Clotrimazole 1% Cream 30 Gm TOPICAL Not Given BID JM Dextrose 25 ml 10/28/20 14:47 Dextrose 50% Syr luma 50 Ml IVP ONCE PRN hypoglycemia prot ocol Protocol Dextrose 50 ml 10/28/20 14:47 Dextrose 50% Syr luma 50 Ml IVP PRN PRN hypoglycemia prot ocol Protocol Diphenhydramine HC l 25 mg 11/03/20 05:43 11/05/20 20:55 Diphenhydramine 25 Mg Capsule PO 25 mg Q6H PRN Administration ITCHING Escitalopram Oxala te 20 mg 11/04/20 17:00 11/06/20 09:03 Escitalopram 10 Mg Tablet PO 20 mg DAILY JM Administration Glucagon 1 mg 10/28/20 14:47 Glucagon 1 Mg/Ml Inj 1 Ml IM ONCE PRN Adult Acute Hypog lycemia Prot. Protocol Heparin Sodium (Be ef Lung) 5,000 unit 10/28/20 15:30 11/06/20 07:38 Heparin 5,000 Un it/Ml Inj 1 Ml SUBCUT 5,000 unit Q8H JM Administration Hydroxyzine Pamoat e 25 mg 10/28/20 14:47 11/05/20 20:55 Hydroxyzine 25 M g Capsule PO 25 mg TID PRN Administration Itching Dextrose 500 mls @ 100 mls /hr 10/28/20 14:47 D5w IV ONCE PRN Adult Acute Hypog lycemia Prot Protocol Insulin Aspart 0 unit 10/28/20 18:00 11/06/20 07:38 Insulin Aspart 1 00 Unit/1 Ml SUBCUT 2 unit WM&BEDTIME JM Administration Protocol Metoprolol Tartrat e 37.5 mg 11/02/20 18:00 11/06/20 09:02 Metoprolol Tartr ate 25 Mg Tablet PO 37.5 mg BID JM Administration Metoprolol Tartrat e 5 mg 11/04/20 02:21 11/04/20 02:42 Metoprolol Tartr ate 1 Mg/1 Ml Sdv 5 Ml IV 5 mg PRN PRN Administration HEART RATE-HIGH Morphine Sulfate 2 mg 10/28/20 14:47 11/04/20 22:53 Morphine 4 Mg/Ml Sdv 1 Ml IVP 2 mg Q4H PRN Administration SEVERE PAIN Ondansetron HCl 4 mg 10/28/20 14:47 Ondansetron 2 Mg /Ml Sdv 2 Ml IVP Q6H PRN NAUSEA AND VOMITI NG Pantoprazole Sodiu m 40 mg 10/29/20 09:00 11/06/20 09:[address] 40 Mg Tablet PO 40 mg DAILY JM Administration Potassium Chloride 40 meq 11/01/20 09:00 11/06/20 09:03 Potassium Chlori de Er 20 Meq Table t PO 40 meq DAILY JM Administration Senna/Docusate Sod ium 1 tab 10/28/20 18:00 11/06/20 09:03 Sennosides-Docus ate Tablet PO 1 tab BID JM Administration Sodium Chloride 1 spray 11/02/20 16:59 11/02/20 17:06 Saline Nasal Spr ay 44ml Btl NASAL 1 spray PRN PRN Administration DRYNESS Trazodone HCl 100 mg 10/28/20 21:00 11/05/20 20:55 Trazodone 100 Mg Tablet PO 100 mg BEDTIME JM Administration Penicillins Allergy (Verified 05/05/20 08:39) Unknown Vitals/I&O/Wt Last Vital Signs Temp 97.4 F L 11/06/20 08:00 Pulse 94 11/06/20 08:00 Resp 28 H 11/06/20 08:00 BP 94/62 11/06/20 08:00 Pulse Ox 94 11/06/20 08:00 11/05/20 11/06/20 11/06/20 22:59 06:59 14:59 Intake Total 480 / 600 360 / 360 Output Total 150 / 150 50 / 200 Balance 330 / 450 -50 / 400 360 / 360 Weight last 48 hrs Weight 90.718 kg Physical Exam Narrative: EXAM NARRATIVE: Constitutional: Awake, conversant, HEENT: Wet mucosa, no jvp, non icteric Lungs: Bilaterally clear without discernible wheeze, rales in all lung zones CVS: S1 S2, no murmurs Abdo: Soft, BS ok Ext 4: 2-3+ edema, peripheral perfusion with no cyanosis Neurological: Grossly non-focal Urinary Catheter Management^: Slater: Cath Placed During This Visit: yes Reason for Continuing Indwelling Catheter: Acute Urinary Retention or Obstruction Urinary Catheter Date of Insertion: 10/28/20 Urinary Catheter Time of Insertion: 12:10 Data : 11/06/20 07:52 11/06/20 07:52 A&P Additional A&P Information 1. SANDY; pre-renal/hypoperfusion, CRS - Poor oral intake and I suspect that despite her LE edema she has some degree of intravascular volume depletion - Will give 500mL of LR and monitor response - Avoid the usuals 2. Hemodynamics - reviewed, remains stable 3. Lytes - hypoNa and HyperK; mild, non critical; as renal function recovers this should correct 4. OOB to chair, PT, OT Onofre Dove MD Nephrology [phone] Patient seen and examined via telemedicine, with the assistance of the bedside RN Attestations Medical Necessity Statement*: Eval for SANDY Coding Level of Care Code Acute Supervisor Type Disk Quality Control for Zhaog Bam
[2020-11-06 11:46] LABS: Glucose Point of Care 250 mg/dL (70-110)
[2020-11-06] MEDS: lactated ringers 500 ML 166 ML IV (12:17)
--- NOTE | 2020-11-06 16:22 | PM.NPN ---
Subjective NPU Subjective: Interval history: Lizzie presents today seeming like she is feeling better. Is the first time she opened her eyes basically all entire time that she has been engaging this health technical writer. Is the first time she did mention a desire to go home. She was not complaining about pain or itching. But she was not ready to verbally acknowledged the notable improvement. Mental Status Exam MSE Comments: This is an obese older white female with hospital gown on with limited grooming and improving eye contact. No abnormal movements except for psychomotor retardation, but improving. Mostly cooperative with exam in less distress. Speech was more spontaneous and more normal rate and volume. Mood described as depressed, affect congruent, but more engaged/brighter. Thought process organized, thought content: Patient did not report suicidal or homicidal ideation, there were no delusions reported or noted, she denied any auditory or visual hallucinations. Attention and concentration were intact and memory was mostly reliable but none were formally tested. She is alert and oriented x3. Insight and judgment were fair and impulse control appears fair. Vitals/I&O/Wt Last Vital Signs Temp 97.5 F L 11/06/20 11:25 Pulse 63 11/06/20 14:00 Resp 27 H 11/06/20 11:25 BP 90/52 11/06/20 11:25 Pulse Ox 96 11/06/20 11:25 11/06/20 11/06/20 11/06/20 06:59 14:59 22:59 Intake Total 480 / 480 Output Total 50 / 200 Balance -50 / 400 480 / 480 Weight last 48 hrs Weight 90.718 kg Physical Exam Urinary Catheter Management^: Slater: Cath Placed During This Visit: yes Reason for Continuing Indwelling Catheter: Acute Urinary Retention or Obstruction Urinary Catheter Date of Insertion: 10/28/20 Urinary Catheter Time of Insertion: 12:10 Data NPU : 11/06/20 07:52 11/06/20 07:52 A&P Additional A&P Information (1) Anemia: (2) Hyponatremia: (3) Metabolic acidosis: (4) Acute kidney injury superimposed on chronic kidney disease: (5) Generalized weakness: (6) CKD (chronic kidney disease) stage 4, GFR 15-29 ml/min: (7) Hypokalemia: (8) Fungal skin disease: (9) Pleural effusion: (10) Atrial fibrillation: (11) Hypoglycemia: (12) Hyperkalemia: (13) Status post mitral valve annuloplasty: (14) H/O tricuspid valve annuloplasty: (15) Pacemaker: (16) Diabetes: (17) HTN (hypertension): (18) CHF (congestive heart failure): (19) Hypoxia: (20) Pneumonia: (21) SANDY (acute kidney injury): (22) Hypotension: (23) UTI (urinary tract infection): (24) Elevated d-dimer: (25) Depression: (26) Anxiety: This is a 65-year-old white female with a long history of multiple medical comorbidities who presents with some history of anxiety and depression with worsening recently reporting an openness to initiate an antidepressant. 1. Continue current medication. Increase Lexapro to 30 mg tomorrow. 2. We'll continue to monitor to determine whether inpatient geriatric psychiatric treatment is necessary, though that is looking less likely. [facility] placement, per medical necessity. 3. We'll continue to follow. Attestations NPU Medical Necessity Statement*: N/A. Please refer to the primary team's note for medical necessity. However we will continue to monitor to determine whether inpatient psychiatric services are needed for safety, which is starting to seem less likely. Coding Level of Care Code Acute Equipment Operation Instructor for Braeden Kuhn
[2020-11-06 17:08] LABS: Glucose Point of Care 270 mg/dL (70-110)
--- NOTE | 2020-11-06 20:06 | PC.NURSE ---
Patient does not complain of anything at this time.
[2020-11-06 20:22] LABS: Glucose Point of Care 243 mg/dL (70-110)
[2020-11-06] MEDS: trazodone 100 mg Tablet PO (20:30)
[2020-11-06] MEDS: atorvastatin 40 mg Tablet 20 MG PO (20:30)
--- NOTE | 2020-11-06 20:49 | PC.NURSE ---
Patient complained of itchy skin. Lotion was applied to patient's back per her request. Patient repositioned to right side with pillows placed with 2 assist.
--- NOTE | 2020-11-06 21:10 | PC.NURSE ---
Patient does not complain of any pain when lying still. Patient only complains of pain when being repositioned. Will monitor.
[2020-11-06] MEDS: diphenhydrAMINE 25 mg Capsule PO (23:22)
[2020-11-06] MEDS: hyDROXYzine 25 mg Capsule PO (23:22)
--- NOTE | 2020-11-06 23:33 | PC.NURSE ---
Patient repositioned to left side with 2 assist. Patient complains of itchy back. PRN medications given for itching.
[2020-11-07] VITALS (11 sets, daily range): BP systolic 95–122; BP diastolic 57–70; PULSE 61–94; RESP 18–32; TEMP 35.8–36.6; O2SAT 94–99
[2020-11-07] MEDS: morphine 4 mg/mL SDV 1 mL 2 MG IVP (01:59)
--- NOTE | 2020-11-07 02:00 | PC.NURSE ---
Patient was screaming I'm hurting. When nurse walked into patient's room, nurse educated the patient that her call light was on her lap to use if she needs me between rounds. Patient states I couldn't reach it. Call light was 6 inches from hand. Patient reeducated on how to use call light and where is it located. Patient verbalized understanding. PRN Morphine given for back pain 10/10. Patient repositioned to supine position.
--- NOTE | 2020-11-07 02:32 | PC.NURSE ---
Patient had incontinent episode of bowel. Linen change, kenny care, and thompson care provided. One optifoam placed to each inner glut. Patient repositioned to her right side with 2 assist. Patient states that her pain is better, but still complains of her back being itchy.
--- NOTE | 2020-11-07 03:11 | PC.NURSE ---
Patient is currently resting with eyes closed. Will monitor.
[2020-11-07 03:59] LABS: Blood Urea Nitrogen 77 mg/dL (8-23); Calcium 8.6 mg/dL (8.5-10.5); Carbon Dioxide 24 mmol/L (22-29); Chloride 91 mmol/L (98-107); Glomerular Filtration Rate 18.5 mL/min (90-130); Glucose 199 mg/dL (65-115); Magnesium 2.7 mg/dL (1.7-2.3); Osmolality Calculated 291 mOsm/kg (285-295); Phosphorus 3.7 mg/dL (2.5-4.5); Sodium 126 mmol/L (136-145)
[2020-11-07 04:14] LABS: Anion Gap 16.9 (5-19); Potassium 5.9 mmol/L (3.5-5.1)
--- NOTE | 2020-11-07 05:52 | PC.NURSE ---
Patient refusing to be turned/repositioned at this time, stating I'm comfortable where I'm at. Patient's linen and absorbant pad are currently clean and dry.
[2020-11-07 06:36] LABS: Glucose Point of Care 204 mg/dL (70-110)
[2020-11-07] MEDS: heparin 5,000 unit/mL INJ 1 mL 5000 UNIT SUBCUT ×3 (08:00→23:18)
[2020-11-07] MEDS: pantoprazole DR 40 mg Tablet PO (08:00)
[2020-11-07] MEDS: amiodarone 200 mg Tablet PO (08:00)
[2020-11-07] MEDS: escitalopram 10 mg Tablet 20 MG PO (08:00)
[2020-11-07] MEDS: sennosides-docusate Tablet 1 TAB PO ×2 (08:00→17:38)
[2020-11-07] MEDS: metoprolol tartrate 25 mg Tablet 37.5 MG PO ×2 (08:00→17:37)
[2020-11-07 09:18] LABS: Basophils # 0.1 10^3/uL (0.0-0.1); Basophils % 0.6 %; Eosinophils # 0.4 10^3/uL (0.0-0.8); Eosinophils % 3.3 %; Hematocrit 34.5 % (37.0-47.0); Hemoglobin 10.1 g/dL (11.5-15.3); Lymphocytes # 0.8 10^3/uL (0.8-4.8); Lymphocytes % 7.8 %; Mean Corpuscular HGB Conc 29.3 g/dL (30.0-36.0); Mean Corpuscular Hemoglobin 23.4 pg (28.0-34.0); Mean Corpuscular Volume 79.9 fL (81-99); Monocytes # 1.3 10^3/uL (0.2-0.9); Monocytes % 12.2 %; Neutrophils # 7.78 10^3/uL (1.8-7.7); Neutrophils % 72.6 %; Nucleated Red Blood Cells % 0 %; Platelet Count 100 10^3/cmm (130-400); Red Blood Count 4.32 10^6/uL (4.1-5.3); Red Cell Distribution Width 20.9 % (12.1-15.1); White Blood Count 10.7 10^3/uL (4.0-10.0)
[2020-11-07 09:49] LABS: Slide Review Slide Review Perform
[2020-11-07 11:04] LABS: Glucose Point of Care 232 mg/dL (70-110)
--- NOTE | 2020-11-07 12:18 | PM.PN ---
Subjective Subjective: Interval history: Remains listless, poorly interactive. Is opening her eyes and answering questions received ivf 500mL yesterday eating and drinking no overt uremic Sx Medications: Reviewed: Yes Medication Review Details: Active Medications Generic Name Dose Route Start Last Admin Trade Name Freq PRN Reason Stop Dose Admin Acetaminophen 650 mg 10/28/20 14:47 10/29/20 21:03 Acetaminophen 32 5 Mg Tablet PO 650 mg Q6H PRN Administration MILD PAIN Amiodarone HCl 200 mg 10/29/20 09:00 11/06/20 09:03 Amiodarone 200 M g Tablet PO 200 mg DAILY JM Administration Atorvastatin Calci um 20 mg 10/28/20 21:00 11/05/20 20:55 Atorvastatin 40 Mg Tablet PO 20 mg BEDTIME JM Administration Clotrimazole 1 applic 10/28/20 18:00 11/06/20 09:03 Clotrimazole 1% Cream 30 Gm TOPICAL Not Given BID JM Dextrose 25 ml 10/28/20 14:47 Dextrose 50% Syr luma 50 Ml IVP ONCE PRN hypoglycemia prot ocol Protocol Dextrose 50 ml 10/28/20 14:47 Dextrose 50% Syr luma 50 Ml IVP PRN PRN hypoglycemia prot ocol Protocol Diphenhydramine HC l 25 mg 11/03/20 05:43 11/05/20 20:55 Diphenhydramine 25 Mg Capsule PO 25 mg Q6H PRN Administration ITCHING Escitalopram Oxala te 20 mg 11/04/20 17:00 11/06/20 09:03 Escitalopram 10 Mg Tablet PO 20 mg DAILY JM Administration Glucagon 1 mg 10/28/20 14:47 Glucagon 1 Mg/Ml Inj 1 Ml IM ONCE PRN Adult Acute Hypog lycemia Prot. Protocol Heparin Sodium (Be ef Lung) 5,000 unit 10/28/20 15:30 11/06/20 07:38 Heparin 5,000 Un it/Ml Inj 1 Ml SUBCUT 5,000 unit Q8H JM Administration Hydroxyzine Pamoat e 25 mg 10/28/20 14:47 11/05/20 20:55 Hydroxyzine 25 M g Capsule PO 25 mg TID PRN Administration Itching Dextrose 500 mls @ 100 mls /hr 10/28/20 14:47 D5w IV ONCE PRN Adult Acute Hypog lycemia Prot Protocol Insulin Aspart 0 unit 10/28/20 18:00 11/06/20 07:38 Insulin Aspart 1 00 Unit/1 Ml SUBCUT 2 unit WM&BEDTIME JM Administration Protocol Metoprolol Tartrat e 37.5 mg 11/02/20 18:00 11/06/20 09:02 Metoprolol Tartr ate 25 Mg Tablet PO 37.5 mg BID JM Administration Metoprolol Tartrat e 5 mg 11/04/20 02:21 11/04/20 02:42 Metoprolol Tartr ate 1 Mg/1 Ml Sdv 5 Ml IV 5 mg PRN PRN Administration HEART RATE-HIGH Morphine Sulfate 2 mg 10/28/20 14:47 11/04/20 22:53 Morphine 4 Mg/Ml Sdv 1 Ml IVP 2 mg Q4H PRN Administration SEVERE PAIN Ondansetron HCl 4 mg 10/28/20 14:47 Ondansetron 2 Mg /Ml Sdv 2 Ml IVP Q6H PRN NAUSEA AND VOMITI NG Pantoprazole Sodiu m 40 mg 10/29/20 09:00 11/06/20 09:[address] 40 Mg Tablet PO 40 mg DAILY JM Administration Potassium Chloride 40 meq 11/01/20 09:00 11/06/20 09:03 Potassium Chlori de Er 20 Meq Table t PO 40 meq DAILY JM Administration Senna/Docusate Sod ium 1 tab 10/28/20 18:00 11/06/20 09:03 Sennosides-Docus ate Tablet PO 1 tab BID JM Administration Sodium Chloride 1 spray 11/02/20 16:59 11/02/20 17:06 Saline Nasal Spr ay 44ml Btl NASAL 1 spray PRN PRN Administration DRYNESS Trazodone HCl 100 mg 10/28/20 21:00 11/05/20 20:55 Trazodone 100 Mg Tablet PO 100 mg BEDTIME JM Administration Penicillins Allergy (Verified 05/05/20 08:39) Unknown Vitals/I&O/Wt Last Vital Signs Temp 96.8 F L 11/07/20 10:48 Pulse 73 11/07/20 10:48 Resp 19 H 11/07/20 10:48 BP 116/63 11/07/20 10:48 Pulse Ox 99 11/07/20 10:48 11/06/20 11/07/20 11/07/20 22:59 06:59 14:59 Intake Total 440 / 920 200 / 1120 240 / 240 Output Total 200 / 200 150 / 350 Balance 240 / 720 50 / 770 240 / 240 Weight last 48 hrs Weight 90.718 kg Physical Exam Narrative: EXAM NARRATIVE: Constitutional: Awake, conversant, HEENT: Wet mucosa, no jvp, non icteric Lungs: Bilaterally clear without discernible wheeze, rales in all lung zones CVS: S1 S2, no murmurs Abdo: Soft, BS ok Ext 4: 2-3+ edema, peripheral perfusion with no cyanosis Neurological: Grossly non-focal Urinary Catheter Management^: Slater: Cath Placed During This Visit: yes Reason for Continuing Indwelling Catheter: Acute Urinary Retention or Obstruction Urinary Catheter Date of Insertion: 10/28/20 Urinary Catheter Time of Insertion: 12:10 Data : 11/07/20 09:08 11/07/20 02:34 A&P Additional A&P Information 1. SANDY; pre-renal/hypoperfusion, CRS - creatinine slightly better but urine output lackluster and notable increase in K, decrease in sodium - will check UA with FE NA - NS at 100ml/hr - am labs - Avoid the usuals 2. Hemodynamics - reviewed, remains stable 3. Lytes - hypoNa and HyperK; getting worse; NS at 100mL/hr, am labs, may need additional therapy 4. OOB to chair, PT, OT Onofre Dove MD Nephrology [phone] Patient seen and examined via telemedicine, with the assistance of the bedside RN Attestations Medical Necessity Statement*: eval for SANDY Coding Level of Care Code Acute Electronic Tester for Zhaog Bam
[2020-11-07] MEDS: sodium chloride 0.9% 1,000 ML 100 ML IV (12:23)
[2020-11-07 13:11] LABS: Add Urine Microscopic? NO
--- NOTE | 2020-11-07 13:27 | PM.PN ---
Subjective Subjective: Interval history: Hospital course, vitals and labs noted. Patient continues to remain lethargic. On examination patient is sleeping in bed, not engaging in conversation. Answers on and off. She is AO x3 just does not want to talk. Worked very minimal with physical therapy today. Has remained hemodynamically stable and afebrile. Requiring 2 L oxygen supplementation to maintain saturation at 95%. Vitals/I&O/Wt Last Vital Signs Temp 96.8 F L 11/07/20 10:48 Pulse 73 11/07/20 10:48 Resp 19 H 11/07/20 10:48 BP 116/63 11/07/20 10:48 Pulse Ox 99 11/07/20 10:48 11/06/20 11/07/20 11/07/20 22:59 06:59 14:59 Intake Total 440 / 920 200 / 1120 360 / 360 Output Total 200 / 200 150 / 350 150 / 150 Balance 240 / 720 50 / 770 210 / 210 Weight last 48 hrs Weight 90.718 kg Physical Exam Narrative: EXAM NARRATIVE: General: No acute distress, AO x3, fatigue, resting quietly in bed, not engaging in conversation HEENT: PERRLA, pupils bilaterally equal and reactive Chest: Normal vesicular breath sounds, no added sounds, equal good air entry bilaterally CVS: S1-S2 regular, no murmurs, no tachycardia, no gallops, no rubs Abdomen: Soft, nontender, no organomegaly, bowel sounds present Neuro: No focal deficits, no facial deformity, AO x3, power 5/5 in all limbs Extremities: 1+2 pitting edema bilateral lower limbs Urinary Catheter Management^: Slater: Cath Placed During This Visit: yes Reason for Continuing Indwelling Catheter: Acute Urinary Retention or Obstruction Urinary Catheter Date of Insertion: 10/28/20 Urinary Catheter Time of Insertion: 12:10 Data : 11/08/20 12:30 11/08/20 12:30 A&P Assessment and plan (1) Right heart failure: Status: Acute (2) Status post mitral valve annuloplasty: Status: Acute (3) H/O tricuspid valve annuloplasty: Status: Acute (4) Hyponatremia: Status: Acute (5) SANDY (acute kidney injury): Status: Acute (6) CKD (chronic kidney disease) stage 4, GFR 15-29 ml/min: -Follows up with Dr. Swain as an outpatient Status: Chronic (7) Diabetes: -last A1c at goal (6.2) -Accucheks, ISS, hold scheduled insulin given poor oral intake; hold oral hypoglycemic agents, hypoglycemia precautions -cardiac consistent carb diet (mechanical soft) as tolerated Status: Chronic Qualifiers: Chronic kidney disease stage: stage 4 (severe) Diabetes mellitus complication detail: with chronic kidney disease Diabetes mellitus complication status: with kidney complications Diabetes mellitus superintendent terminal insulin use: with superintendent terminal use Diabetes mellitus type: type 2 Qualified Code(s): E11.22 - Type 2 diabetes mellitus with diabetic chronic kidney disease; N18.4 - Chronic kidney disease, stage 4 (severe); 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 For now continue to holding off on antihypertensives because of episodes of hypotension. Started on midodrine. Status: Chronic Qualifiers: Hypertension type: essential hypertension Qualified Code(s): I10 - Essential (primary) hypertension (10) Generalized weakness: -Likely multifactorial given physical deconditioning, dehydration, poor oral intake, electrolyte abnormalities, impaired renal function -Strict fall precautions -PT/OT/ST evaluations appreciated; participation limited due to lack of motivation Status: Acute (11) Hypotension: Status: Acute Qualifiers: Hypotension type: unspecified hypotension type Qualified Code(s): I95.9 - Hypotension, unspecified Additional A&P Information Right-sided heart failure in setting of history of mitral and tricuspid valve annuloplasty: Echocardiogram shows an EF 55% with severely increased RV size, severely decreased RV systolic function with moderate pulmonary hypertension, RVSP of 65 mmHg, severely dilated LA and RA, moderate to severe mitral regurgitation, moderate aortic stenosis. Patient looks intravolume depleted. For now start patient on normal saline at 75 cc/h. We will monitor for fluid overload and respiratory distress. Patient would most likely benefit from dobutamine but given all other comorbidities will start patient on midodrine 2.5 mg twice daily for now. For now hold off on diuresis. SANDY on chronic kidney disease stage IV: Baseline creatinine around 2. Currently creatinine 2.6 with noted oliguria and worsening renal functions. IV fluids as above. Appreciate renal recommendations. Avoid nephrotoxic drugs. Hyponatremia/hyperkalemia: Continue with fluid as above. We will start patient on 1 g salt tablets. Insulin 10 units with D5 for hyperkalemia. Telemetry. No metabolic acidosis at present. Depression: Appreciate psychiatry evaluation. Continue with Lexapro 30 mg daily. Patient seems to be improving. Patient wants to sit up in chair. Still not working well with physical therapy. Continue to encourage out of bed to chair, physical therapy. Avoid sedating medications, pain medications for now. Patient does not have any fever, improving leukocytosis off antibiotics. For now continue to hold off on antibiotics. Check procalcitonin, TSH, vitamin B12, folate levels. -Morbid obesity: BMI-35 kg/m2 though overall nutrition status is quite poor -hx of PE; on AC with Xarelto; hold for now -CAD s/p CABG -Chronic atrial fibrillation; on AC with Xarelto, digoxin discontinued by cardio, on Amiodarone -has dual chamber pacemaker in place -HTN -Chronic normocytic anemia; baseline Hg around 9-11 -GI ppx with PPI -DVT ppx with heparin -Dispo: needs SNF placement, agreeable. Previously living at home alone with services and family support. In light of increased generalized weakness, poor oral intake with significant dehydration as noted above, and ability for 24/7 supervision at this time she needs to be in a monitored environment. Unfortunately placement to SNF is getting difficult because patient is not participating in physical therapy much. Also looking for possible placement to [facility]. We will confirm with psychiatric. -Code status: DNR, ok with intubation -guarded prognosis due to underlying comorbidities, hypotension, dehydration, poor oral intake, depression. Overall progress is extremely slow, hampered primarily by patient's lack of participation, poor oral intake and refusal to take her medications routinely Attestations Medical Necessity Statement*: Patient requires further hospitalization for management of SANDY on chronic kidney disease, right-sided heart failure, hyponatremia, hyperkalemia, depression while safe discharge planning is sought. Time Spent in Patient Care: Greater than 35 minutes (>than 50% of time spent in counselling and/or direct pt care on unit). Coding Level of Care Code Acute Magento Developer for Braeden Kuhn Diagnoses Right heart failure I50.810 Status post mitral valve annuloplasty Z98.890 H/O tricuspid valve annuloplasty Z98.890 Hyponatremia E87.1 SANDY (acute kidney injury) N17.9 CKD (chronic kidney disease) stage 4, GFR 15-29 ml/min N18.4 Diabetes E11.22; N18.4; Z79.4 Chronic kidney disease stage: stage 4 (severe) Diabetes mellitus complication detail: with chronic kidney disease Diabetes mellitus complication status: with kidney complications Diabetes mellitus superintendent terminal insulin use: with superintendent terminal use Diabetes mellitus type: type 2 Depression F32.9 HTN (hypertension) I10 Hypertension type: essential hypertension Generalized weakness R53.1 Hypotension I95.9 Hypotension type: unspecified hypotension type
[2020-11-07 14:03] LABS: Bilirubin Urine Neg (Negative); Blood Urine Neg (Negative); Glucose Urine UA Norm (Normal); Ketones Urine Negative (Negative); Leukocyte Esterase Urine Negative (Negative); Nitrate Urine Negative (Negative); Protein Urine Neg (Negative); Urine Appearance Clear (CLEAR); Urine Color Yellow (Yellow); Urobilinogen Urine Norm (Negative); pH Urine 5 (5-7)
[2020-11-07 16:03] LABS: Glucose Point of Care 164 mg/dL (70-110)
[2020-11-07 17:03] LABS: Urine Creatinine 112 mg/dL (28-217)
[2020-11-07] MEDS: midodrine 5 mg TABLET 2.5 MG PO (17:38)
--- NOTE | 2020-11-07 17:47 | P.PN_ITS ---
Subjective NPU Subjective: Interval history: Lizzie presents today essentially unchanged from yesterday. She continues to make progress and be more engaged. She gave no explanation for why she was resistant to engagement with recommendations for increased activity. She denied any issues with the increase in medication. [id number] reports that Medicaid or Medicare she cannot remember which, has been finally obtained which they have been working on for a month or so and so they are excited about the possibility of getting her in a facility so she is not living at home alone which was her desire as well. Mental Status Exam MSE Comments: This is an obese older white female with hospital gown on with limited grooming and improving eye contact. No abnormal movements except for psychomotor retardation, but improving. Mostly cooperative with exam in less distress. Speech was more spontaneous and more normal rate and volume. Mood described as depressed, affect congruent, but more engaged/brighter. Thought process organized, thought content: Patient did not report suicidal or homicidal ideation, there were no delusions reported or noted, she denied any auditory or visual hallucinations. Attention and concentration were intact and memory was mostly reliable but none were formally tested. She is alert and oriented x3. Insight and judgment were fair and impulse control appears fair. Vitals/I&O/Wt Last Vital Signs Temp 97.6 F 11/07/20 19:38 Pulse 80 11/07/20 19:38 Resp 32 H 11/07/20 19:38 BP 95/63 11/07/20 19:38 Pulse Ox 99 11/07/20 19:38 11/07/20 14:59 Intake Total 360 / 360 Output Total 150 / 150 Balance 210 / 210 Weight last 48 hrs Weight 90.718 kg Physical Exam Urinary Catheter Management^: Slater: Cath Placed During This Visit: yes Reason for Continuing Indwelling Catheter: Other Urinary Catheter Date of Insertion: 10/28/20 Urinary Catheter Time of Insertion: 12:10 Data NPU : 11/07/20 09:08 11/07/20 02:34 A&P Additional A&P Information (1) Anemia: (2) Hyponatremia: (3) Metabolic acidosis: (4) Acute kidney injury superimposed on chronic kidney disease: (5) Generalized weakness: (6) CKD (chronic kidney disease) stage 4, GFR 15-29 ml/min: (7) Hypokalemia: (8) Fungal skin disease: (9) Pleural effusion: (10) Atrial fibrillation: (11) Hypoglycemia: (12) Hyperkalemia: (13) Status post mitral valve annuloplasty: (14) H/O tricuspid valve annuloplasty: (15) Pacemaker: (16) Diabetes: (17) HTN (hypertension): (18) CHF (congestive heart failure): (19) Hypoxia: (20) Pneumonia: (21) SANDY (acute kidney injury): (22) Hypotension: (23) UTI (urinary tract infection): (24) Elevated d-dimer: (25) Depression: (26) Anxiety: This is a 65-year-old white female with a long history of multiple medical comorbidities who presents with some history of anxiety and depression with worsening recently reporting an openness to initiate an antidepressant. 1. Continue current medication. 2. We'll continue to monitor to determine whether inpatient geriatric psychiatric treatment is necessary, though that is looking less likely. fdc placement, per medical necessity. 3. We'll continue to follow. Attestations NPU Medical Necessity Statement*: Medical Necessity Statement* N/A. Please refer to the primary team's note for medical necessity. However we will continue to monitor to determine whether inpatient psychiatric services are needed for safety, which is starting to seem less likely. 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
[2020-11-07 18:25] LABS: Urine Random Sodium > 20 mmol/L
[2020-11-07 20:37] LABS: Glucose Point of Care 170 mg/dL (70-110)
[2020-11-07] MEDS: atorvastatin 40 mg Tablet 20 MG PO (20:39)
[2020-11-07] MEDS: trazodone 100 mg Tablet PO (20:39)
--- NOTE | 2020-11-07 21:30 | PC.NURSE ---
Initial shift note. Patient is found to be resting and in no apparent distress. Pt initially was non-communicative and actually closed her eyes in an attempt to not have to interact with staff. The patient did however communicate with staff and was able to be assessed as well as medications administered.
[2020-11-07] MEDS: sodium chloride 0.9% 1,000 ML 75 ML IV (23:18)
[2020-11-08] VITALS (8 sets, daily range): BP systolic 90–111; BP diastolic 55–75; PULSE 62–82; RESP 16–32; TEMP 35.7–36.6; O2SAT 96–100
[2020-11-08] MEDS: hyDROXYzine 25 mg Capsule PO (01:39)
--- NOTE | 2020-11-08 06:37 | PC.NURSE ---
Pt rested comfortably through the night. Pt did have to be moved from her room to a double occupancy room to account for a male patient that need the room. This move occurred without incident.
[2020-11-08 06:56] LABS: Glucose Point of Care 156 mg/dL (70-110)
[2020-11-08] MEDS: midodrine 5 mg TABLET 2.5 MG PO ×2 (08:24→17:34)
[2020-11-08] MEDS: sennosides-docusate Tablet 1 TAB PO ×2 (08:24→17:34)
[2020-11-08] MEDS: heparin 5,000 unit/mL INJ 1 mL 5000 UNIT SUBCUT ×2 (08:24→15:40)
[2020-11-08] MEDS: escitalopram 10 mg Tablet 30 MG PO (08:24)
[2020-11-08] MEDS: metoprolol tartrate 25 mg Tablet 37.5 MG PO ×2 (08:24→17:34)
[2020-11-08] MEDS: pantoprazole DR 40 mg Tablet PO (08:25)
[2020-11-08] MEDS: amiodarone 200 mg Tablet PO (08:25)
[2020-11-08 11:21] LABS: Glucose Point of Care 198 mg/dL (70-110)
--- NOTE | 2020-11-08 12:30 | PM.PN ---
Subjective Subjective: Interval history: Mrs. Pro remains comfortable, minimally interactive but is answering simple questions. Mild extremity edema, no shortness of breath, no uremic symptoms. Blood work is pending for today. Medications: Reviewed: Yes Medication Review Details: Active Medications Generic Name Dose Route Start Last Admin Trade Name Freq PRN Reason Stop Dose Admin Acetaminophen 650 mg 10/28/20 14:47 10/29/20 21:03 Acetaminophen 32 5 Mg Tablet PO 650 mg Q6H PRN Administration MILD PAIN Amiodarone HCl 200 mg 10/29/20 09:00 11/06/20 09:03 Amiodarone 200 M g Tablet PO 200 mg DAILY JM Administration Atorvastatin Calci um 20 mg 10/28/20 21:00 11/05/20 20:55 Atorvastatin 40 Mg Tablet PO 20 mg BEDTIME JM Administration Clotrimazole 1 applic 10/28/20 18:00 11/06/20 09:03 Clotrimazole 1% Cream 30 Gm TOPICAL Not Given BID JM Dextrose 25 ml 10/28/20 14:47 Dextrose 50% Syr luma 50 Ml IVP ONCE PRN hypoglycemia prot ocol Protocol Dextrose 50 ml 10/28/20 14:47 Dextrose 50% Syr luma 50 Ml IVP PRN PRN hypoglycemia prot ocol Protocol Diphenhydramine HC l 25 mg 11/03/20 05:43 11/05/20 20:55 Diphenhydramine 25 Mg Capsule PO 25 mg Q6H PRN Administration ITCHING Escitalopram Oxala te 20 mg 11/04/20 17:00 11/06/20 09:03 Escitalopram 10 Mg Tablet PO 20 mg DAILY JM Administration Glucagon 1 mg 10/28/20 14:47 Glucagon 1 Mg/Ml Inj 1 Ml IM ONCE PRN Adult Acute Hypog lycemia Prot. Protocol Heparin Sodium (Be ef Lung) 5,000 unit 10/28/20 15:30 11/06/20 07:38 Heparin 5,000 Un it/Ml Inj 1 Ml SUBCUT 5,000 unit Q8H JM Administration Hydroxyzine Pamoat e 25 mg 10/28/20 14:47 11/05/20 20:55 Hydroxyzine 25 M g Capsule PO 25 mg TID PRN Administration Itching Dextrose 500 mls @ 100 mls /hr 10/28/20 14:47 D5w IV ONCE PRN Adult Acute Hypog lycemia Prot Protocol Insulin Aspart 0 unit 10/28/20 18:00 11/06/20 07:38 Insulin Aspart 1 00 Unit/1 Ml SUBCUT 2 unit WM&BEDTIME JM Administration Protocol Metoprolol Tartrat e 37.5 mg 11/02/20 18:00 11/06/20 09:02 Metoprolol Tartr ate 25 Mg Tablet PO 37.5 mg BID JM Administration Metoprolol Tartrat e 5 mg 11/04/20 02:21 11/04/20 02:42 Metoprolol Tartr ate 1 Mg/1 Ml Sdv 5 Ml IV 5 mg PRN PRN Administration HEART RATE-HIGH Morphine Sulfate 2 mg 10/28/20 14:47 11/04/20 22:53 Morphine 4 Mg/Ml Sdv 1 Ml IVP 2 mg Q4H PRN Administration SEVERE PAIN Ondansetron HCl 4 mg 10/28/20 14:47 Ondansetron 2 Mg /Ml Sdv 2 Ml IVP Q6H PRN NAUSEA AND VOMITI NG Pantoprazole Sodiu m 40 mg 10/29/20 09:00 11/06/20 09:[address] 40 Mg Tablet PO 40 mg DAILY JM Administration Potassium Chloride 40 meq 11/01/20 09:00 11/06/20 09:03 Potassium Chlori de Er 20 Meq Table t PO 40 meq DAILY JM Administration Senna/Docusate Sod ium 1 tab 10/28/20 18:00 11/06/20 09:03 Sennosides-Docus ate Tablet PO 1 tab BID JM Administration Sodium Chloride 1 spray 11/02/20 16:59 11/02/20 17:06 Saline Nasal Spr ay 44ml Btl NASAL 1 spray PRN PRN Administration DRYNESS Trazodone HCl 100 mg 10/28/20 21:00 11/05/20 20:55 Trazodone 100 Mg Tablet PO 100 mg BEDTIME JM Administration Penicillins Allergy (Verified 05/05/20 08:39) Unknown Vitals/I&O/Wt Last Vital Signs Temp 96.2 F L 11/08/20 08:00 Pulse 77 11/08/20 08:00 Resp 32 H 11/08/20 08:00 BP 90/62 11/08/20 08:00 Pulse Ox 98 11/08/20 08:00 11/07/20 11/08/20 11/08/20 22:59 06:59 14:59 Intake Total 1000 / 1360 50 / 1410 120 / 120 Output Total 100 / 250 300 / 550 Balance 900 / 1110 -250 / 860 120 / 120 Weight last 48 hrs Weight 95.254 kg Weight 90.718 kg Physical Exam Narrative: EXAM NARRATIVE: Constitutional: Awake, conversant, HEENT: Wet mucosa, no jvp, non icteric Lungs: Bilaterally clear without discernible wheeze, rales in all lung zones CVS: S1 S2, no murmurs Abdo: Soft, BS ok Ext 4: 2-3+ edema, peripheral perfusion with no cyanosis Neurological: Grossly non-focal Urinary Catheter Management^: Slater: Cath Placed During This Visit: yes Reason for Continuing Indwelling Catheter: Acute Urinary Retention or Obstruction Urinary Catheter Date of Insertion: 10/28/20 Urinary Catheter Time of Insertion: 12:10 Data : 11/07/20 09:08 11/07/20 02:34 A&P Additional A&P Information 1. SANDY; pre-renal/hypoperfusion, CRS - creatinine pending for today - U Na > 20, ie against pre-renal - NS at 100ml/hr may need to stop this if creatinine not improving - am labs - Avoid the usuals 2. Hemodynamics - reviewed, remains stable 3. Lytes - pending for today 4. OOB to chair, PT, OT Onofre Dove MD Nephrology [phone] Patient seen and examined via telemedicine, with the assistance of the bedside RN Attestations Medical Necessity Statement*: eval for SANDY Coding Level of Care Code Acute Call Or Contact Centre Manager for Braeden Kuhn
[2020-11-08] MEDS: sodium chloride 0.9% 1,000 ML 75 ML IV (12:32)
[2020-11-08 12:36] LABS: Basophils # 0.1 10^3/uL (0.0-0.1); Basophils % 0.6 %; Eosinophils # 0.4 10^3/uL (0.0-0.8); Eosinophils % 4.3 %; Hematocrit 35.2 % (37.0-47.0); Hemoglobin 10.5 g/dL (11.5-15.3); Lymphocytes # 0.5 10^3/uL (0.8-4.8); Lymphocytes % 6.3 %; Mean Corpuscular HGB Conc 29.8 g/dL (30.0-36.0); Mean Corpuscular Hemoglobin 23.4 pg (28.0-34.0); Mean Corpuscular Volume 78.6 fL (81-99); Monocytes # 0.8 10^3/uL (0.2-0.9); Monocytes % 10.1 %; Neutrophils % 74.8 %; Nucleated Red Blood Cells % 0 %; Platelet Count 109 10^3/cmm (130-400); Red Blood Count 4.48 10^6/uL (4.1-5.3); Red Cell Distribution Width 20.8 % (12.1-15.1); White Blood Count 8.2 10^3/uL (4.0-10.0)
[2020-11-08 12:56] LABS: Anion Gap 14.5 (5-19); Blood Urea Nitrogen 75 mg/dL (8-23); Calcium 8.4 mg/dL (8.5-10.5); Carbon Dioxide 27 mmol/L (22-29); Chloride 92 mmol/L (98-107); Glomerular Filtration Rate 18.5 mL/min (90-130); Glucose 213 mg/dL (65-115); Phosphorus 3.9 mg/dL (2.5-4.5); Potassium 5.5 mmol/L (3.5-5.1); Sodium 128 mmol/L (136-145)
[2020-11-08 15:09] LABS: Magnesium 2.5 mg/dL (1.7-2.3)
[2020-11-08 16:48] LABS: Glucose Point of Care 210 mg/dL (70-110)
--- NOTE | 2020-11-08 17:46 | PM.PN ---
Subjective Subjective: Interval history: No acute events overnight. Patient is a little more awake today. Sitting up in chair. Work a little better with physical therapy today. Seems more jovial and participating more today. Denies any nausea, vomiting, headache, dizziness. Also seen again during the day with daughter at bedside. Vitals/I&O/Wt Last Vital Signs Temp 96.9 F L 11/08/20 14:48 Pulse 74 11/08/20 14:48 Resp 16 11/08/20 14:48 BP 111/60 11/08/20 14:48 Pulse Ox 100 11/08/20 14:48 11/08/20 11/08/20 11/08/20 06:59 14:59 22:59 Intake Total 50 / 1410 1352.5 / 1352.5 Output Total 300 / 550 Balance -250 / 860 1352.5 / 1352.5 Weight last 48 hrs Weight 95.254 kg Weight 90.718 kg Physical Exam Narrative: EXAM NARRATIVE: General: No acute distress, AO x3, sitting in chair, more agreeable to have conversation and physical therapy today. HEENT: PERRLA, pupils bilaterally equal and reactive Chest: Normal vesicular breath sounds, no added sounds, equal good air entry bilaterally CVS: S1-S2 regular, no murmurs, no tachycardia, no gallops, no rubs Abdomen: Soft, nontender, no organomegaly, bowel sounds present Neuro: No focal deficits, no facial deformity, AO x3, power 5/5 in all limbs Extremities: 1+2 pitting edema bilateral lower limbs Urinary Catheter Management^: Slater: Cath Placed During This Visit: yes Reason for Continuing Indwelling Catheter: Acute Urinary Retention or Obstruction Urinary Catheter Date of Insertion: 10/28/20 Urinary Catheter Time of Insertion: 12:10 Data : 11/08/20 12:30 11/08/20 12:30 A&P Assessment and plan (1) Right heart failure: Status: Acute (2) Status post mitral valve annuloplasty: Status: Acute (3) H/O tricuspid valve annuloplasty: Status: Acute (4) Hyponatremia: Status: Acute (5) SANDY (acute kidney injury): Status: Acute (6) CKD (chronic kidney disease) stage 4, GFR 15-29 ml/min: -Follows up with Dr. Swain as an outpatient Status: Chronic (7) Diabetes: -last A1c at goal (6.2) -Accucheks, ISS, hold scheduled insulin given poor oral intake; hold oral hypoglycemic agents, hypoglycemia precautions -cardiac consistent carb diet (mechanical soft) as tolerated Status: Chronic Qualifiers: Diabetes mellitus type: type 2 Diabetes mellitus intermission coordinator insulin use: with intermission coordinator use Diabetes mellitus complication status: with kidney complications Diabetes mellitus complication detail: with chronic kidney disease Chronic kidney disease stage: stage 4 (severe) Qualified Code(s): E11.22 - Type 2 diabetes mellitus with diabetic chronic kidney disease; N18.4 - Chronic kidney disease, stage 4 (severe); Z79.4 - nursing home (current) use of insulin (8) Depression: Status: Acute (9) HTN (hypertension): Goal blood pressure less than 140/90 mmHg. For now continue to holding off on antihypertensives because of episodes of hypotension. Started on midodrine. Status: Chronic Qualifiers: Hypertension type: essential hypertension Qualified Code(s): I10 - Essential (primary) hypertension (10) Generalized weakness: -Likely multifactorial given physical deconditioning, dehydration, poor oral intake, electrolyte abnormalities, impaired renal function -Strict fall precautions -PT/OT/ST evaluations appreciated; participation limited due to lack of motivation Status: Acute (11) Hypotension: Status: Acute Qualifiers: Hypotension type: unspecified hypotension type Qualified Code(s): I95.9 - Hypotension, unspecified Additional A&P Information Right-sided heart failure in setting of history of mitral and tricuspid valve annuloplasty: Echocardiogram shows an EF 55% with severely increased RV size, severely decreased RV systolic function with moderate pulmonary hypertension, RVSP of 65 mmHg, severely dilated LA and RA, moderate to severe mitral regurgitation, moderate aortic stenosis. Patient looks intravolume depleted. Continue with fluid?normal saline at 75 cc/h. We will monitor for fluid overload and respiratory distress. Patient would most likely benefit from dobutamine but given all other comorbidities will start patient on midodrine 2.5 mg twice daily for now. For now hold off on diuresis. SANDY on chronic kidney disease stage IV: Stable. Baseline creatinine around 2. Currently creatinine 2.6 with noted oliguria and worsening renal functions. IV fluids as above. Appreciate renal recommendations. Avoid nephrotoxic drugs. Hyponatremia/hyperkalemia: Continue with fluid as above. We will start patient on 1 g salt tablets. Insulin 10 units with D5 for hyperkalemia. Telemetry. No metabolic acidosis at present. Depression: Appreciate psychiatry evaluation. Continue with Lexapro 30 mg daily. Patient seems to be improving. Patient wants to sit up in chair. Still not working well with physical therapy. Continue to encourage out of bed to chair, physical therapy. Avoid sedating medications, pain medications for now. Patient does not have any fever, improving leukocytosis off antibiotics. For now continue to hold off on antibiotics. Check procalcitonin, TSH, vitamin B12, folate levels. -Morbid obesity: BMI-35 kg/m2 though overall nutrition status is quite poor -hx of PE; on AC with Xarelto; hold for now -CAD s/p CABG -Chronic atrial fibrillation; on AC with Xarelto, digoxin discontinued by cardio, on Amiodarone -has dual chamber pacemaker in place -HTN -Chronic normocytic anemia; baseline Hg around 9-11 -GI ppx with PPI -DVT ppx with heparin -Dispo: needs SNF placement, agreeable. Previously living at home alone with services and family support. In light of increased generalized weakness, poor oral intake with significant dehydration as noted above, and ability for 24/7 supervision at this time she needs to be in a monitored environment. Patient working better with physical therapy today. Does not require [facility] as per psychiatric evaluations anymore. Will consult with care management for further assistance at SNF placement. -Code status: DNR, ok with intubation Plan for the day: Continue with salt tablets, hyperkalemia treatment, gentle IV hydration while monitoring for fluid overload, midodrine while monitoring blood pressures. Continue to encourage patient to be sitting in chair, increasing oral hydration, working with physical therapy while discharge planning is sought to SNF placement given severe generalized deconditioning requiring further rehabitation. Attestations Medical Necessity Statement*: Requires further hospitalization for management of SANDY on chronic kidney disease, hyponatremia, hyperkalemia, severe depression in setting of right-sided heart failure while safe discharge planning is sought. Time Spent in Patient Care: Greater than 35 minutes (>than 50% of time spent in counselling and/or direct pt care on unit). Coding Level of Care Code Acute Tour Coordinator for Braeden Kuhn Diagnoses Right heart failure I50.810 Status post mitral valve annuloplasty Z98.890 H/O tricuspid valve annuloplasty Z98.890 Hyponatremia E87.1 SANDY (acute kidney injury) N17.9 CKD (chronic kidney disease) stage 4, GFR 15-29 ml/min N18.4 Diabetes E11.22; N18.4; Z79.4 Diabetes mellitus type: type 2 Diabetes mellitus intermission coordinator insulin use: with intermission coordinator use Diabetes mellitus complication status: with kidney complications Diabetes mellitus complication detail: with chronic kidney disease Chronic kidney disease stage: stage 4 (severe) Depression F32.9 HTN (hypertension) I10 Hypertension type: essential hypertension Generalized weakness R53.1 Hypotension I95.9 Hypotension type: unspecified hypotension type
[2020-11-08] MEDS: sodium chloride 1 gm Tablet PO (18:13)
[2020-11-08] MEDS: dextrose 50% syringe 50 mL IVP (18:13)
[2020-11-08] MEDS: insulin regular-human 10 UNIT in SYRINGE 1 EACH IVP (18:19)
--- NOTE | 2020-11-08 19:04 | P.PN_ITS ---
Subjective NPU Subjective: Interval history: Lizzie presented today reporting that she is feeling a bit better. The first time she really talked about not being depressed. She is not sure what is going to happen or what has happened as far as getting her Medicaid/Medicare approved. She is still agreeable to the plans of her family to get to some facility so she is not alone. She was able to contract for safety. Mental Status Exam MSE Comments: This is an obese older white female with hospital gown on with limited grooming and improving eye contact. No abnormal movements except for psychomotor retardation, but improving. Mostly cooperative with exam in no acute distress. Speech was more spontaneous and more normal rate and volume. Mood described as better, affect engaged/brighter. Thought process organized, thought content: Patient did not report suicidal or homicidal ideation, there were no delusions reported or noted, she denied any auditory or visual hallucinations. Attention and concentration were intact and memory was mostly reliable but none were formally tested. She is alert and oriented x3. Insight and judgment were fair and impulse control appears fair. Vitals/I&O/Wt Last Vital Signs Temp 97.8 F 11/08/20 20:00 Pulse 70 11/08/20 20:00 Resp 29 H 11/08/20 20:00 BP 111/75 11/08/20 20:00 Pulse Ox 96 11/08/20 20:00 11/08/20 11/08/20 14:59 22:59 Intake Total 1352.5 / 1352.5 15 / 1367.5 Output Total Balance 1352.5 / 1352.5 15 / 1367.5 Weight last 48 hrs Weight 95.254 kg Physical Exam Urinary Catheter Management^: Slater: Cath Placed During This Visit: yes Reason for Continuing Indwelling Catheter: Acute Urinary Retention or Obstruction Urinary Catheter Date of Insertion: 10/28/20 Urinary Catheter Time of Insertion: 12:10 Data NPU : 11/09/20 05:00 11/09/20 10:47 A&P Additional A&P Information (1) Anemia: (2) Hyponatremia: (3) Metabolic acidosis: (4) Acute kidney injury superimposed on chronic kidney disease: (5) Generalized weakness: (6) CKD (chronic kidney disease) stage 4, GFR 15-29 ml/min: (7) Hypokalemia: (8) Fungal skin disease: (9) Pleural effusion: (10) Atrial fibrillation: (11) Hypoglycemia: (12) Hyperkalemia: (13) Status post mitral valve annuloplasty: (14) H/O tricuspid valve annuloplasty: (15) Pacemaker: (16) Diabetes: (17) HTN (hypertension): (18) CHF (congestive heart failure): (19) Hypoxia: (20) Pneumonia: (21) SANDY (acute kidney injury): (22) Hypotension: (23) UTI (urinary tract infection): (24) Elevated d-dimer: (25) Depression: (26) Anxiety: This is a 65-year-old white female with a long history of multiple medical comorbidities who presents with some history of anxiety and depression with worsening recently reporting an openness to initiate an antidepressant. 1. Continue current medication. 2. We'll continue to monitor to determine whether inpatient geriatric psychiatric treatment is necessary, though that is looking less likely. detention placement, per medical necessity. 3. Please contact if need any additional response. Attestations NPU Medical Necessity Statement*: N/A. Please refer to the primary team's note for medical necessity. No need for inpatient psychiatric services. Coding Level of Care Code Acute [employer] Fab[employer] Impregnating Range Tender for Braeden Kuhn
[2020-11-08 19:20] LABS: Thyroid Stimulating Hormone 5.02 uIU/mL (0.27-4.20)
[2020-11-08] MEDS: trazodone 100 mg Tablet PO (21:19)
[2020-11-08] MEDS: atorvastatin 40 mg Tablet 20 MG PO (21:19)
[2020-11-08 21:57] LABS: Procalcitonin 0.31 ng/mL (0-0.5); Vitamin B12 1469 pg/mL (232-1245)
[2020-11-08 21:58] LABS: Folate Level 7.2 ng/mL (4.8-37.3)
[2020-11-08 22:37] LABS: Free T4 Free Thyroxine 2.42 ng/dL (0.82-1.77); T3 Free 3.3 PG/ML (2.0-4.4)
[2020-11-09] VITALS (10 sets, daily range): BP systolic 85–109; BP diastolic 49–69; PULSE 59–106; RESP 12–33; TEMP 35.9–36.6; O2SAT 98–100
[2020-11-09] MEDS: heparin 5,000 unit/mL INJ 1 mL 5000 UNIT SUBCUT ×4 (00:02→23:02)
[2020-11-09] MEDS: hyDROXYzine 25 mg Capsule PO ×2 (00:02→21:15)
--- NOTE | 2020-11-09 01:49 | PC.NURSE ---
PT C/O BACK BEING ITCHY. THIS NURSE SCRATCHED THE PT BACK, PUT ON LOTION, AND GAVE PRN VISTARIL. SHEET FINISHER SCRATCHED PT BACK AND PUT LOTION ON. RN NURSE SCRATCHED PT BACK AND PUT LOTION ON. PT STATES THAT SCRATCHING DOESN'T RELIEVE THE ITCH. THAT MEDICATION DOESN'T HELP. THIS NURSE ASKED WHAT RELIEVES IT AT HOME. PT RESPONDED THAT SHE SCRATCHES IT. THIS NURSE ASKED PT WHY THEY DON'T JUST SCRATCH IT THEN. PT REPLIED BECAUSE I DON'T WANT TO . PT HAS A BACK GARMENT FINISHER ON BED SIDE TABLE. PT DENIES ANY PAIN. WILL CONTINUE TO MONITOR.
[2020-11-09] MEDS: sodium chloride 0.9% 1,000 ML 75 ML IV ×2 (02:37→16:06)
--- NOTE | 2020-11-09 04:07 | PC.NURSE ---
PT KEEPS YELLING OUT FOR STAFF. PT KEEPS SAYING THAT HER BACK ITCHES. THIS IS AN ONGOING ISSUE. PT ASKED CAN'T YOU JUST STAY IN HERE AND SCRATCH MY BACK. WILL CONTINUE TO MONITOR.
--- NOTE | 2020-11-09 05:14 | PC.NURSE ---
PT IS RESTING WITH EYES CLOSED AT THIS TIME. WILL CONTINUE TO MONITOR.
[2020-11-09 05:42] LABS: Basophils % 0.6 %; Eosinophils # 0.4 10^3/uL (0.0-0.8); Eosinophils % 5.7 %; Hematocrit 32.4 % (37.0-47.0); Lymphocytes # 0.6 10^3/uL (0.8-4.8); Lymphocytes % 8.4 %; Mean Corpuscular HGB Conc 30.9 g/dL (30.0-36.0); Mean Corpuscular Hemoglobin 24.4 pg (28.0-34.0); Mean Corpuscular Volume 79.2 fL (81-99); Monocytes # 1.2 10^3/uL (0.2-0.9); Monocytes % 16.5 %; Neutrophils # 4.67 10^3/uL (1.8-7.7); Neutrophils % 66.4 %; Nucleated Red Blood Cells % 0 %; Platelet Count 106 10^3/cmm (130-400); Red Blood Count 4.09 10^6/uL (4.1-5.3); Red Cell Distribution Width 20.8 % (12.1-15.1)
[2020-11-09 06:28] LABS: Glucose Point of Care 154 mg/dL (70-110)
--- NOTE | 2020-11-09 06:38 | PC.NURSE ---
PT DIDN'T REST VERY LONG LAST NIGHT. PT C/O BEING ITCHY AND WANTED SOMEONE TO BE WITH HER. THE NIGHT STAFF WAS IN PT ROOM FREQUENTLY TO AIDE PT IN SCRATCHING THEIR BACK. WILL PASS ALONG TO DAYSHIFT.
[2020-11-09] MEDS: metoprolol tartrate 25 mg Tablet 37.5 MG PO ×2 (09:00→18:08)
[2020-11-09] MEDS: midodrine 5 mg TABLET 2.5 MG PO ×2 (09:00→18:08)
[2020-11-09] MEDS: escitalopram 10 mg Tablet 30 MG PO (09:00)
[2020-11-09] MEDS: amiodarone 200 mg Tablet PO (09:00)
[2020-11-09] MEDS: pantoprazole DR 40 mg Tablet PO (09:00)
[2020-11-09] MEDS: sennosides-docusate Tablet 1 TAB PO ×2 (09:00→18:08)
[2020-11-09] MEDS: sodium chloride 1 gm Tablet PO ×2 (09:00→18:08)
--- NOTE | 2020-11-09 11:09 | PC.OT ---
OT NOTE: PATIENT INITIALLY AGREEABLE TO OT TREATMENT THIS A.M. AGREEABLE TO OOB TO CHAIR FOR LUNCH. BLANKETS WERE REMOVED AND PATIENTS FEET TAKEN OFF OF PILLOW (FLOAT) SHE THEN STATED THAT NO SHE DID NOT WANT TO GET OOB, REFUSED TO PERFORM GROOMING OR UE EXERCISE.
[2020-11-09 11:19] LABS: Albumin Level 2.8 g/dL (3.5-5.2); Blood Urea Nitrogen 70 mg/dL (8-23); Calcium 8.3 mg/dL (8.5-10.5); Carbon Dioxide 26 mmol/L (22-29); Chloride 94 mmol/L (98-107); Glomerular Filtration Rate 20.3 mL/min (90-130); Glucose 156 mg/dL (65-115); Phosphorus 3.3 mg/dL (2.5-4.5); Sodium 128 mmol/L (136-145)
[2020-11-09 11:38] LABS: Glucose Point of Care 200 mg/dL (70-110)
--- NOTE | 2020-11-09 11:57 | P.PN_ITS ---
Subjective Subjective: Interval history: Remains weak and lethargic on my interview, although I do see from other providers notes that she was interactive and more jovial. She has been on normal saline now for the last 2 days. Chronic lower extremity and sacral edema seems unchanged, breathing comfortably on nasal cannula. No other overt uremic symptoms. Poor oral intake of both solids and liquids. Medications: Reviewed: Yes Medication Review Details: Active Medications Generic Name Dose Route Start Last Admin Trade Name Freq PRN Reason Stop Dose Admin Acetaminophen 650 mg 10/28/20 14:47 10/29/20 21:03 Acetaminophen 32 5 Mg Tablet PO 650 mg Q6H PRN Administration MILD PAIN Amiodarone HCl 200 mg 10/29/20 09:00 11/06/20 09:03 Amiodarone 200 M g Tablet PO 200 mg DAILY JM Administration Atorvastatin Calci um 20 mg 10/28/20 21:00 11/05/20 20:55 Atorvastatin 40 Mg Tablet PO 20 mg BEDTIME MJ Administration Clotrimazole 1 applic 10/28/20 18:00 11/06/20 09:03 Clotrimazole 1% Cream 30 Gm TOPICAL Not Given BID JM Dextrose 25 ml 10/28/20 14:47 Dextrose 50% Syr luma 50 Ml IVP ONCE PRN hypoglycemia prot ocol Protocol Dextrose 50 ml 10/28/20 14:47 Dextrose 50% Syr luma 50 Ml IVP PRN PRN hypoglycemia prot ocol Protocol Diphenhydramine HC l 25 mg 11/03/20 05:43 11/05/20 20:55 Diphenhydramine 25 Mg Capsule PO 25 mg Q6H PRN Administration ITCHING Escitalopram Oxala te 20 mg 11/04/20 17:00 11/06/20 09:03 Escitalopram 10 Mg Tablet PO 20 mg DAILY JM Administration Glucagon 1 mg 10/28/20 14:47 Glucagon 1 Mg/Ml Inj 1 Ml IM ONCE PRN Adult Acute Hypog lycemia Prot. Protocol Heparin Sodium (Be ef Lung) 5,000 unit 10/28/20 15:30 11/06/20 07:38 Heparin 5,000 Un it/Ml Inj 1 Ml SUBCUT 5,000 unit Q8H JM Administration Hydroxyzine Pamoat e 25 mg 10/28/20 14:47 11/05/20 20:55 Hydroxyzine 25 M g Capsule PO 25 mg TID PRN Administration Itching Dextrose 500 mls @ 100 mls /hr 10/28/20 14:47 D5w IV ONCE PRN Adult Acute Hypog lycemia Prot Protocol Insulin Aspart 0 unit 10/28/20 18:00 11/06/20 07:38 Insulin Aspart 1 00 Unit/1 Ml SUBCUT 2 unit WM&BEDTIME JM Administration Protocol Metoprolol Tartrat e 37.5 mg 11/02/20 18:00 11/06/20 09:02 Metoprolol Tartr ate 25 Mg Tablet PO 37.5 mg BID JM Administration Metoprolol Tartrat e 5 mg 11/04/20 02:21 11/04/20 02:42 Metoprolol Tartr ate 1 Mg/1 Ml Sdv 5 Ml IV 5 mg PRN PRN Administration HEART RATE-HIGH Morphine Sulfate 2 mg 10/28/20 14:47 11/04/20 22:53 Morphine 4 Mg/Ml Sdv 1 Ml IVP 2 mg Q4H PRN Administration SEVERE PAIN Ondansetron HCl 4 mg 10/28/20 14:47 Ondansetron 2 Mg /Ml Sdv 2 Ml IVP Q6H PRN NAUSEA AND VOMITI NG Pantoprazole Sodiu m 40 mg 10/29/20 09:00 11/06/20 09:[address] 40 Mg Tablet PO 40 mg DAILY JM Administration Potassium Chloride 40 meq 11/01/20 09:00 11/06/20 09:03 Potassium Chlori de Er 20 Meq Table t PO 40 meq DAILY JM Administration Senna/Docusate Sod ium 1 tab 10/28/20 18:00 11/06/20 09:03 Sennosides-Docus ate Tablet PO 1 tab BID JM Administration Sodium Chloride 1 spray 11/02/20 16:59 11/02/20 17:06 Saline Nasal Spr ay 44ml Btl NASAL 1 spray PRN PRN Administration DRYNESS Trazodone HCl 100 mg 10/28/20 21:00 11/05/20 20:55 Trazodone 100 Mg Tablet PO 100 mg BEDTIME JM Administration Penicillins Allergy (Verified 05/05/20 08:39) Unknown Vitals/I&O/Wt Last Vital Signs Temp 96.6 F L 11/09/20 11:28 Pulse 77 11/09/20 11:28 Resp 20 H 11/09/20 11:28 BP 100/63 11/09/20 11:28 Pulse Ox 98 11/09/20 11:28 11/08/20 11/09/20 11/09/20 22:59 06:59 14:59 Intake Total 15 / 1367.5 1100 / 2467.5 Output Total 60 / 60 Balance 15 / 1367.5 1040 / 2407.5 Weight last 48 hrs Weight 96.026 kg Weight 95.254 kg Physical Exam Narrative: EXAM NARRATIVE: Constitutional: Awake, conversant, HEENT: Wet mucosa, no jvp, non icteric Lungs: Bilaterally clear without discernible wheeze, rales in all lung zones CVS: S1 S2, no murmurs Abdo: Soft, BS ok Ext 4: 2-3+ edema, peripheral perfusion with no cyanosis Neurological: Grossly non-focal Urinary Catheter Management^: Slater: Cath Placed During This Visit: yes Reason for Continuing Indwelling Catheter: Acute Urinary Retention or Obstruction Urinary Catheter Date of Insertion: 10/28/20 Urinary Catheter Time of Insertion: 12:10 Data : 11/09/20 05:00 11/09/20 10:47 A&P Additional A&P Information 1. SANDY; pre-renal/hypoperfusion, CRS - creatinine improving with ivf ie consistent with pre-renal - U Na > 20, ie against pre-renal - NS at 75ml/hr on board - am labs - Avoid the usuals 2. Hemodynamics - reviewed, remains stable 3. Lytes -sodium low but stable and non-critical, potassium now normal 4. OOB to chair, PT, OT - DC planning on going Onofre Dove MD Nephrology [phone] Patient seen and examined via telemedicine, with the assistance of the bedside RN Attestations Medical Necessity Statement*: eval for renal failure Coding Level of Care Code Acute Magistrate Assistant for Braeden Kuhn
--- NOTE | 2020-11-09 15:21 | PC.SOCIAL ---
*IMM* Patient received updated IMM.
[2020-11-09 16:04] LABS: Glucose Point of Care 177 mg/dL (70-110)
--- NOTE | 2020-11-09 17:13 | PM.PN ---
Subjective Subjective: Interval history: No acute events patient opens eyes having complete conversation. Sitting in bed during examination. Agreeable to sitting in chair. States feeling weak. Denies any nausea, vomiting, headache. Has remained afebrile and hemodynamically stable last 24 hours. Vitals/I&O/Wt Last Vital Signs Temp 97.6 F 11/09/20 15:30 Pulse 63 11/09/20 15:30 Resp 21 H 11/09/20 15:30 BP 108/58 11/09/20 15:30 Pulse Ox 98 11/09/20 15:30 11/09/20 11/09/20 11/09/20 06:59 14:59 22:59 Intake Total 1100 / 2467.517 240 / 240 1000.083 / 1240.083 Output Total 60 / 60 Balance 1040 / 2407.517 240 / 240 1000.083 / 1240.083 Weight last 48 hrs Weight 96.026 kg Weight 95.254 kg Physical Exam Narrative: EXAM NARRATIVE: General: No acute distress, AO x3, sitting in chair, more agreeable to have conversation and physical therapy today. HEENT: PERRLA, pupils bilaterally equal and reactive Chest: Normal vesicular breath sounds, no added sounds, equal good air entry bilaterally CVS: S1-S2 regular, no murmurs, no tachycardia, no gallops, no rubs Abdomen: Soft, nontender, no organomegaly, bowel sounds present Neuro: No focal deficits, no facial deformity, AO x3, power 5/5 in all limbs Extremities: 1+2 pitting edema bilateral lower limbs Urinary Catheter Management^: Slater: Cath Placed During This Visit: yes Reason for Continuing Indwelling Catheter: Acute Urinary Retention or Obstruction Urinary Catheter Date of Insertion: 10/28/20 Urinary Catheter Time of Insertion: 12:10 Data : 11/09/20 05:00 11/09/20 10:47 A&P Assessment and plan (1) Right heart failure: Status: Acute (2) Status post mitral valve annuloplasty: Status: Acute (3) H/O tricuspid valve annuloplasty: Status: Acute (4) Hyponatremia: Status: Acute (5) SANDY (acute kidney injury): Status: Acute (6) CKD (chronic kidney disease) stage 4, GFR 15-29 ml/min: -Follows up with Dr. 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 For now continue to holding off on antihypertensives because of episodes of hypotension. Started on midodrine. Status: Chronic Qualifiers: Hypertension type: essential hypertension Qualified Code(s): I10 - Essential (primary) hypertension (10) Generalized weakness: -Likely multifactorial given physical deconditioning, dehydration, poor oral intake, electrolyte abnormalities, impaired renal function -Strict fall precautions -PT/OT/ST evaluations appreciated; participation limited due to lack of motivation Status: Acute (11) Hypotension: Status: Acute Qualifiers: Hypotension type: unspecified hypotension type Qualified Code(s): I95.9 - Hypotension, unspecified Additional A&P Information Right-sided heart failure in setting of history of mitral and tricuspid valve annuloplasty: Echocardiogram shows an EF 55% with severely increased RV size, severely decreased RV systolic function with moderate pulmonary hypertension, RVSP of 65 mmHg, severely dilated LA and RA, moderate to severe mitral regurgitation, moderate aortic stenosis. Patient looks intravolume depleted. Continue with fluid?normal saline at 75 cc/h. Has been on IV fluids for last 48 hours without any difficulty in breathing. Lower limb swelling seems to be at baseline. We will monitor for fluid overload and respiratory distress. Patient would most likely benefit from dobutamine but given all other comorbidities will start patient on midodrine 2.5 mg twice daily for now. For now hold off on diuresis. SANDY on chronic kidney disease stage IV: Stable. Baseline creatinine around 2. Currently creatinine stable from 2.4-2.6. BUN improving. Urine output remains minimal. Will give IV Lasix 40 mg along with IV fluids for now. Appreciate renal recommendations. Avoid nephrotoxic drugs. Hyponatremia/hyperkalemia: Continue with fluid as above. Continue with 1 g salt tablets. Hyperkalemia has resolved. Continue to monitor. Telemetry. No metabolic acidosis at present. Depression: Appreciate psychiatry evaluation. Continue with Lexapro 30 mg daily. Patient seems to be improving. Patient wants to sit up in chair. Still not working well with physical therapy. Continue to encourage out of bed to chair, physical therapy. Avoid sedating medications, pain medications for now. Patient does not have any fever, improving leukocytosis off antibiotics. For now continue to hold off on antibiotics. Procalcitonin negative, folate within normal limits, vitamin B12 elevated, TSH elevated but free T3 within normal limits and free T4 mildly elevated. For now we will continue to monitor. -Morbid obesity: BMI-35 kg/m2 though overall nutrition status is quite poor -hx of PE; on AC with Xarelto; hold for now -CAD s/p CABG -Chronic atrial fibrillation; on AC with Xarelto, digoxin discontinued by cardio, on Amiodarone -has dual chamber pacemaker in place -HTN -Chronic normocytic anemia; baseline Hg around 9-11 -GI ppx with PPI -DVT ppx with heparin -Dispo: needs SNF placement, agreeable. Previously living at home alone with services and family support. In light of increased generalized weakness, poor oral intake with significant dehydration as noted above, and ability for 24/7 supervision at this time she needs to be in a monitored environment. Patient working better with physical therapy today. Does not require [facility] psych as per psychiatric evaluations anymore. [facility] has been [facility] at [facility]. Awaiting prior authorization. -Code status: DNR, ok with intubation Plan for the day: Continue with salt tablets, IV Lasix along with gentle IV hydration while monitoring for fluid overload, midodrine while monitoring blood pressures. Continue to encourage patient to be sitting in chair, increasing oral hydration, working with physical therapy while discharge planning is sought to SNF placement given severe generalized deconditioning requiring further rehabitation. Attestations Medical Necessity Statement*: Requires further hospitalization for management of acute kidney injury, hyponatremia in setting of right-sided heart failure with history of mitral and tricuspid valve annuloplasty, depression and severe generalized deconditioning while safe discharge planning to SNF is sought. Time Spent in Patient Care: Greater than 35 minutes (>than 50% of time spent in counselling and/or direct pt care on unit). Coding Level of Care Code Acute Clinical Cytopathologist for Zhaog Fwd Diagnoses Right heart failure I50.810 Status post mitral valve annuloplasty Z98.890 H/O tricuspid valve annuloplasty Z98.890 Hyponatremia E87.1 SANDY (acute kidney injury) N17.9 CKD (chronic kidney disease) stage 4, GFR 15-29 ml/min N18.4 Diabetes E11.22; N18.4; Z79.4 Diabetes mellitus type: type 2 Diabetes mellitus [facility] use: with [facility] use Diabetes mellitus complication status: with kidney complications Diabetes mellitus complication detail: with chronic kidney disease Chronic kidney disease stage: stage 4 (severe) Depression F32.9 HTN (hypertension) I10 Hypertension type: essential hypertension Generalized weakness R53.1 Hypotension I95.9 Hypotension type: unspecified hypotension type
[2020-11-09] MEDS: FUROsemide 10 mg/mL SDV 4mL 40 MG IVP (18:08)
[2020-11-09 20:44] LABS: Glucose Point of Care 189 mg/dL (70-110)
[2020-11-09] MEDS: atorvastatin 40 mg Tablet 20 MG PO (21:15)
[2020-11-09] MEDS: trazodone 100 mg Tablet PO (21:15)
--- NOTE | 2020-11-09 21:19 | PC.NURSE ---
Patient is refusing to be turned. Patient states, Why won't you people leave me alone. Patient has been educated on risks of not being turned and repositioned and verbalized understanding. Patient states I just want to be left alone. Patient also refused a bed bath.
--- NOTE | 2020-11-09 23:07 | PC.NURSE ---
Patient refuses to be turned. When Heparin SQ was given, patient states I wish I could be left alone, it's day in and day out of being poked.
[2020-11-10] VITALS (12 sets, daily range): BP systolic 92–120; BP diastolic 50–66; PULSE 61–104; RESP 11–30; TEMP 35.8–36.6; O2SAT 97–100
[2020-11-10] MEDS: sodium chloride 0.9% 1,000 ML 75 ML IV ×2 (01:07→18:01)
--- NOTE | 2020-11-10 04:25 | PC.NURSE ---
Patient had incontinent episode of bowel. Patient was cleaned, absorbant pad and gown replaced. Patient was repositioned onto left side with 2 assist.
--- NOTE | 2020-11-10 06:14 | PC.NURSE ---
Patient was reeducated on risks of not being repositioned in bed. Patient agreed to be turned. Patient was turned with 2 assist.
[2020-11-10 07:19] LABS: Glucose Point of Care 111 mg/dL (70-110)
[2020-11-10] MEDS: heparin 5,000 unit/mL INJ 1 mL 5000 UNIT SUBCUT ×3 (07:36→22:36)
[2020-11-10] MEDS: pantoprazole DR 40 mg Tablet PO (09:13)
[2020-11-10] MEDS: metoprolol tartrate 25 mg Tablet 37.5 MG PO ×2 (09:13→18:02)
[2020-11-10] MEDS: sennosides-docusate Tablet 1 TAB PO ×2 (09:13→18:03)
[2020-11-10] MEDS: escitalopram 10 mg Tablet 30 MG PO (09:13)
[2020-11-10] MEDS: sodium chloride 1 gm Tablet PO ×2 (09:13→18:02)
[2020-11-10] MEDS: amiodarone 200 mg Tablet PO (09:14)
[2020-11-10] MEDS: midodrine 5 mg TABLET 2.5 MG PO ×2 (09:14→18:02)
--- NOTE | 2020-11-10 10:06 | P.PN_ITS ---
Subjective Subjective: Interval history: In chair, no complaints Medications: Reviewed: Yes Vitals/I&O/Wt Last Vital Signs Temp 96.7 F L 11/10/20 07:54 Pulse 77 11/10/20 07:54 Resp 14 11/10/20 07:54 BP 110/60 11/10/20 07:54 Pulse Ox 100 11/10/20 07:54 11/09/20 11/10/20 11/10/20 22:59 06:59 14:59 Intake Total 1340.083 / 1580.083 726.25 / 2306.333 120 / 120 Output Total 325 / 325 Balance 1340.083 / 1580.083 401.25 / 1981.333 120 / 120 Weight last 48 hrs Weight 98.883 kg Weight 96.026 kg Physical Exam Extremity: GENERAL: Yes edema Urinary Catheter Management^: Slater: Cath Placed During This Visit: yes Reason for Continuing Indwelling Catheter: Acute Urinary Retention or Obstruction Urinary Catheter Date of Insertion: 10/28/20 Urinary Catheter Time of Insertion: 12:10 Data : 11/09/20 05:00 11/10/20 09:32 A&P Additional A&P Information Impression: 1. SANDY/CKD, low urine output, positive 2 liters, weight increased 2. Hyponatremia, stable 3. Cor pulmonale Recommend: discontinue IVF. Attestations Medical Necessity Statement*: per primary service Time Spent in Patient Care: 16 - 35 minutes Coding Level of Care Code Acute Tactical/Mobile Watch Officer for Braeden Kuhn
[2020-11-10 10:07] LABS: Albumin Level 2.7 g/dL (3.5-5.2); Blood Urea Nitrogen 67 mg/dL (8-23); Calcium 8.4 mg/dL (8.5-10.5); Carbon Dioxide 23 mmol/L (22-29); Chloride 97 mmol/L (98-107); Glomerular Filtration Rate 22.4 mL/min (90-130); Glucose 191 mg/dL (65-115); Phosphorus 3.4 mg/dL (2.5-4.5); Sodium 129 mmol/L (136-145)
[2020-11-10 10:13] LABS: Anion Gap 14.1 (5-19); Potassium 5.1 mmol/L (3.5-5.1)
--- NOTE | 2020-11-10 10:28 | PC.NURSE ---
Addendum entered by Karen Rice CNA 11/10/20 10:31: at bath time she did not want to stand to get her bottom washed so when she gets back to bed i will finish it Original Note: pt didnt want to wash herself up but was incouraged to wash face hands and upper parts and i washed low half she wasnt wanting to but she did
[2020-11-10 11:22] LABS: Glucose Point of Care 200 mg/dL (70-110)
[2020-11-10] MEDS: FUROsemide 10 mg/mL SDV 4mL 40 MG IVP (11:29)
--- NOTE | 2020-11-10 11:55 | PM.PN ---
Subjective Subjective: Interval history: No acute events overnight. Patient is lying comfortably in bed. Patient was agreeable to work with physical therapy today though became fatigued. Has remained neurologically stable and afebrile. Denies any nausea, vomiting, headache, dizziness. Eating almost 10 to 15% of her meals. Vitals/I&O/Wt Last Vital Signs Temp 96.5 F L 11/10/20 11:11 Pulse 71 11/10/20 11:11 Resp 12 11/10/20 11:11 BP 120/66 11/10/20 11:11 Pulse Ox 100 11/10/20 11:11 11/09/20 11/10/20 11/10/20 22:59 06:59 14:59 Intake Total 1340.083 / 1580.083 726.25 / 2306.333 120 / 120 Output Total 325 / 325 Balance 1340.083 / 1580.083 401.25 / 1981.333 120 / 120 Weight last 48 hrs Weight 98.883 kg Weight 96.026 kg Physical Exam Narrative: EXAM NARRATIVE: General: No acute distress, AO x3, sitting in chair, more agreeable to have conversation and physical therapy today. HEENT: PERRLA, pupils bilaterally equal and reactive Chest: Normal vesicular breath sounds, no added sounds, equal good air entry bilaterally CVS: S1-S2 regular, no murmurs, no tachycardia, no gallops, no rubs Abdomen: Soft, nontender, no organomegaly, bowel sounds present Neuro: No focal deficits, no facial deformity, AO x3, power 5/5 in all limbs Extremities: 1+2 pitting edema bilateral lower limbs Urinary Catheter Management^: Slater: Cath Placed During This Visit: yes Reason for Continuing Indwelling Catheter: Acute Urinary Retention or Obstruction Urinary Catheter Date of Insertion: 10/28/20 Urinary Catheter Time of Insertion: 12:10 Data : 11/09/20 05:00 11/10/20 09:32 A&P Assessment and plan (1) Right heart failure: Status: Acute (2) Status post mitral valve annuloplasty: Status: Acute (3) H/O tricuspid valve annuloplasty: Status: Acute (4) Hyponatremia: Status: Acute (5) SANDY (acute kidney injury): Status: Acute (6) CKD (chronic kidney disease) stage 4, GFR 15-29 ml/min: -Follows up with Dr. 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 For now continue to holding off on antihypertensives because of episodes of hypotension. Started on midodrine. Status: Chronic Qualifiers: Hypertension type: essential hypertension Qualified Code(s): I10 - Essential (primary) hypertension (10) Generalized weakness: -Likely multifactorial given physical deconditioning, dehydration, poor oral intake, electrolyte abnormalities, impaired renal function -Strict fall precautions -PT/OT/ST evaluations appreciated; participation limited due to lack of motivation Status: Acute (11) Hypotension: Status: Acute Qualifiers: Hypotension type: unspecified hypotension type Qualified Code(s): I95.9 - Hypotension, unspecified Additional A&P Information Right-sided heart failure in setting of history of mitral and tricuspid valve annuloplasty: Echocardiogram shows an EF 55% with severely increased RV size, severely decreased RV systolic function with moderate pulmonary hypertension, RVSP of 65 mmHg, severely dilated LA and RA, moderate to severe mitral regurgitation, moderate aortic stenosis. Patient looks intravolume depleted. Continue with fluid?normal saline at 75 cc/h. Has been on IV fluids for last 72 hours without any difficulty in breathing. Lower limb swelling seems to be at baseline. We will monitor for fluid overload and respiratory distress. Patient would most likely benefit from dobutamine but given all other comorbidities will start patient on midodrine 2.5 mg twice daily for now. Patient is on 2 L for the last 24 hours we will give a dose of IV Lasix 40 mg along with IV fluids. SANDY on chronic kidney disease stage IV: Improving slightly today to 2.2 with decreasing BUN to 67 Baseline creatinine around 2. Urine output remains minimal. We will give 1 more dose of Lasix 40 mg today along with IV fluids. Appreciate renal recommendations. Avoid nephrotoxic drugs. Hyponatremia/hyperkalemia: Continue with fluid as above. Continue with 1 g salt tablets. Hyperkalemia has resolved. Continue to monitor. Telemetry. No metabolic acidosis at present. Depression: Appreciate psychiatry evaluation. Continue with Lexapro 30 mg daily. Patient seems to be improving. Patient wants to sit up in chair. Still not working well with physical therapy. Continue to encourage out of bed to chair, physical therapy. Avoid sedating medications, pain medications for now. Patient does not have any fever, improving leukocytosis off antibiotics. For now continue to hold off on antibiotics. Procalcitonin negative, folate within normal limits, vitamin B12 elevated, TSH elevated but free T3 within normal limits and free T4 mildly elevated. For now we will continue to monitor. -Morbid obesity: BMI-35 kg/m2 though overall nutrition status is quite poor -hx of PE; on AC with Xarelto; hold for now -CAD s/p CABG -Chronic atrial fibrillation; on AC with Xarelto, digoxin discontinued by cardio, on Amiodarone -has dual chamber pacemaker in place -HTN -Chronic normocytic anemia; baseline Hg around 9-11 -GI ppx with PPI -DVT ppx with heparin -Dispo: needs SNF placement, agreeable. Previously living at home alone with services and family support. In light of increased generalized weakness, poor oral intake with significant dehydration as noted above, and ability for 24/7 supervision at this time she needs to be in a monitored environment. Patient working better with physical therapy today. Does not require [facility] psych as per psychiatric evaluations anymore. Patient has been accepted at [facility]. Awaiting prior authorization. -Code status: DNR, ok with intubation Plan for the day: Continue encouraging patient for oral intake, start patient on Glucerna for nutrition. Continue with salt tablets, IV Lasix along with gentle IV hydration while monitoring for fluid overload, midodrine while monitoring blood pressures. Continue to encourage patient to be sitting in chair, working with physical therapy while discharge planning is sought to SNF placement given severe generalized deconditioning requiring further rehabitation. Attestations Medical Necessity Statement*: Patient requires further hospitalization for management of SANDY in setting of right-sided heart failure, poor oral intake, severely generalized deconditioning while safe discharge planning is sought with possible placement to SNF. Time Spent in Patient Care: Greater than 35 minutes (>than 50% of time spent in counselling and/or direct pt care on unit). 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
--- NOTE | 2020-11-10 12:41 | PC.NURSE ---
Addendum entered by Karen Rice CNA 11/10/20 12:44: at the time putting pt back to bed she stated she wanted to stay in bed and go to sleep and not wake up Original Note: when getting pt back to bed she refused to stand she says she cant it took 2 people useing gate belt to put her back to bed she didnt help much
--- NOTE | 2020-11-10 15:05 | DCPLANNER ---
IMM completed 11/10/2020 @ 6122 and copy of rights given to pt.
[2020-11-10 16:50] LABS: Glucose Point of Care 228 mg/dL (70-110)
--- NOTE | 2020-11-10 19:13 | PC.NURSE ---
Patient does not have any complaints at this time. Will monitor.
[2020-11-10 20:25] LABS: Glucose Point of Care 222 mg/dL (70-110)
[2020-11-10] MEDS: trazodone 100 mg Tablet PO (20:45)
[2020-11-10] MEDS: atorvastatin 40 mg Tablet 20 MG PO (20:45)
[2020-11-11] VITALS (31 sets, daily range): BP systolic 91–108; BP diastolic 55–72; PULSE 62–92; RESP 9–43; TEMP 36.4–36.7; O2SAT 95–100
[2020-11-11 04:49] LABS: Basophils % 0.6 %; Eosinophils # 0.2 10^3/uL (0.0-0.8); Eosinophils % 4.2 %; Hematocrit 34.1 % (37.0-47.0); Hemoglobin 10.1 g/dL (11.5-15.3); Lymphocytes # 0.5 10^3/uL (0.8-4.8); Lymphocytes % 10.2 %; Mean Corpuscular HGB Conc 29.6 g/dL (30.0-36.0); Mean Corpuscular Hemoglobin 23.7 pg (28.0-34.0); Mean Corpuscular Volume 79.9 fL (81-99); Monocytes # 0.9 10^3/uL (0.2-0.9); Monocytes % 16.1 %; Neutrophils # 3.53 10^3/uL (1.8-7.7); Nucleated Red Blood Cells % 0 %; Platelet Count 88 10^3/cmm (130-400); Red Blood Count 4.27 10^6/uL (4.1-5.3); White Blood Count 5.3 10^3/uL (4.0-10.0)
[2020-11-11 05:11] LABS: Albumin Level 2.7 g/dL (3.5-5.2); Anion Gap 13.6 (5-19); Blood Urea Nitrogen 60 mg/dL (8-23); Calcium 8.2 mg/dL (8.5-10.5); Carbon Dioxide 23 mmol/L (22-29); Chloride 98 mmol/L (98-107); Glomerular Filtration Rate 26.5 mL/min (90-130); Glucose 146 mg/dL (65-115); Phosphorus 2.8 mg/dL (2.5-4.5); Potassium 4.6 mmol/L (3.5-5.1); Sodium 130 mmol/L (136-145)
[2020-11-11] MEDS: sodium chloride 0.9% 1,000 ML 75 ML IV (05:15)
[2020-11-11 06:27] LABS: Glucose Point of Care 157 mg/dL (70-110)
[2020-11-11] MEDS: heparin 5,000 unit/mL INJ 1 mL 5000 UNIT SUBCUT ×2 (08:06→22:04)
[2020-11-11] MEDS: escitalopram 10 mg Tablet 30 MG PO (08:57)
[2020-11-11] MEDS: amiodarone 200 mg Tablet PO (08:58)
[2020-11-11] MEDS: pantoprazole DR 40 mg Tablet PO (08:58)
[2020-11-11] MEDS: sodium chloride 1 gm Tablet PO ×2 (08:58→17:03)
[2020-11-11] MEDS: sennosides-docusate Tablet 1 TAB PO ×2 (08:59→17:03)
[2020-11-11] MEDS: midodrine 5 mg TABLET 2.5 MG PO ×2 (08:59→17:03)
[2020-11-11] MEDS: metoprolol tartrate 25 mg Tablet 37.5 MG PO ×2 (09:00→17:03)
[2020-11-11 11:18] LABS: Glucose Point of Care 187 mg/dL (70-110)
--- NOTE | 2020-11-11 11:52 | PC.CHAP ---
Pastoral Care Encounter/Spiritual Assessment Type of Contact [] Declined barrel tester and drainer visit [] Patient/Family/Request visit [] Outpatient visit [xx] Follow-up visit [] Physician referral [] Code/Alert [xx] Routine visit [] Staff referral [] Actively dying [] Patient sleeping [] Family support [] [] Out of room [] Palliative care [] [] Receiving care in room [] Pre-surgical visit [] Trauma [xx] Long length of stay [] ICU visit [] Other: Relational/Emotional Strength [xx] Patient feels connected with others/family/visitors/staff [] Distress [] Loneliness/isolation [] Abandonment Spirituality of Patient Person of [place] [] Attends Bahai of their [place] [xx] Believes in Prayer [] Reads Bible or Latter Day materials [] There are Spiritual issues to be addressed Service Counter Cashier Interventions [xx] Prayer [xx] Active listening [xx] Non-anxious presence [] Spiritual/emotional support [] Crisis/trauma care [] Spiritual counseling [] Bereavement support [] Provided bereavement packet [] Provided Bible/devotional materials [] Provided toy/stuffed animal, coloring book to patient or family member [] Provided Communion [] Anointing/[place] [] Salvation [xx] Completed spiritual assessment [] Other: Impact on Illness or Injury [] Angry [] Fearful [] Anxious [] Often cries [] Exhaustion [x] Unable to work [] Unable to attend gnosticist [x] Unable to walk/stand [] Unable to read [x] Unable to drive [] Unable to eat/drink [] Unable to sleep [x] Unable to be with family [] Patient intubated [] Other: Summary Pt sitting in chair but wanting to sleep. She wanted help re-positioning blanket and pillow for comfort. At her insistence, Service Counter Cashier helped her with such. Only short prayer for her as that was all she wanted. Time spent with patient 3 minutes
[2020-11-11 12:31] LABS: Ferritin 213 ng/mL (15-150); Iron 30 ug/dL (37-145); Percent Saturation 10.4 % (20-50); Total Iron Binding Capacity 288 mcg/dl; Unsaturated Iron Binding 258 ug/dL (112-347)
[2020-11-11] MEDS: FUROsemide 10 mg/mL SDV 4mL 40 MG IVP (13:08)
[2020-11-11] MEDS: iron sucrose 200 MG in sodium chloride 0.9% (100 ml) 100 ML 220 MG IV (13:09)
--- NOTE | 2020-11-11 13:09 | PM.PN ---
Subjective Subjective: Interval history: reports pain on buttocks. RN states she has two pressure ulcers Medications: Reviewed: Yes Vitals/I&O/Wt Last Vital Signs Temp 97.5 F L 11/11/20 11:05 Pulse 81 11/11/20 11:05 Resp 16 11/11/20 11:05 BP 97/62 11/11/20 11:05 Pulse Ox 100 11/11/20 11:05 11/10/20 11/11/20 11/11/20 22:59 06:59 14:59 Intake Total 220 / 1580 942.5 / 2522.5 200 / 200 Output Total 650 / 650 Balance 220 / 1580 292.5 / 1872.5 200 / 200 Weight last 48 hrs Weight 97.885 kg Weight 98.883 kg Physical Exam Extremity: GENERAL: Yes edema Urinary Catheter Management^: Slater: Cath Placed During This Visit: yes Reason for Continuing Indwelling Catheter: Acute Urinary Retention or Obstruction Urinary Catheter Date of Insertion: 10/28/20 Urinary Catheter Time of Insertion: 12:10 Data : 11/11/20 03:00 11/11/20 03:00 Other Labs: TSAT 105, SF 213 albumin 2.7, rafael Ca 9.4 A&P Additional A&P Information Impression: 1. SANDY/CKD, low urine output, I/Os remain positive, yet weight reported less today (probably not accurate) 2. Hyponatremia, improved to 130 mEq/L 3. Cor pulmonale 4. Anemia, iron deficient, Hb Stable Recommend: discontinue IVF. Begin oral iron. Attestations Medical Necessity Statement*: per primary service Time Spent in Patient Care: 16 - 35 minutes Coding Level of Care Code Acute Medical Technologist for Braeden Kuhn
--- NOTE | 2020-11-11 15:53 | PM.PN ---
Subjective Subjective: Interval history: No events overnight. Today morning on examination patient sitting in chair. Stood up with physical therapy. Work with bedside exercises with physical therapy. States she is feeling little better though continues to feel fatigued and tired. Complaining of mild buttock pains. Has remained hemodynamically stable and afebrile. Documented urine output 700 cc in last 24 h. Vitals/I&O/Wt Last Vital Signs Temp 97.6 F 11/11/20 15:22 Pulse 79 11/11/20 15:22 Resp 18 11/11/20 15:22 BP 105/61 11/11/20 15:22 Pulse Ox 100 11/11/20 15:22 11/11/20 11/11/20 11/11/20 06:59 14:59 22:59 Intake Total 942.5 / 2522.5 560 / 560 Output Total 650 / 650 Balance 292.5 / 1872.5 560 / 560 Weight last 48 hrs Weight 97.885 kg Weight 98.883 kg Physical Exam Narrative: EXAM NARRATIVE: General: No acute distress, AO x3, sitting in chair, more agreeable to have conversation and physical therapy today. HEENT: PERRLA, pupils bilaterally equal and reactive Chest: Normal vesicular breath sounds, no added sounds, equal good air entry bilaterally CVS: S1-S2 regular, no murmurs, no tachycardia, no gallops, no rubs Abdomen: Soft, nontender, no organomegaly, bowel sounds present Neuro: No focal deficits, no facial deformity, AO x3, power 5/5 in all limbs Extremities: 1+2 pitting edema bilateral lower limbs Urinary Catheter Management^: Slater: Cath Placed During This Visit: yes Reason for Continuing Indwelling Catheter: Acute Urinary Retention or Obstruction Urinary Catheter Date of Insertion: 10/28/20 Urinary Catheter Time of Insertion: 12:10 Data : 11/11/20 03:00 11/11/20 03:00 A&P Assessment and plan (1) Right heart failure: Status: Acute (2) Status post mitral valve annuloplasty: Status: Acute (3) H/O tricuspid valve annuloplasty: Status: Acute (4) Hyponatremia: Status: Acute (5) SANDY (acute kidney injury): Status: Acute (6) CKD (chronic kidney disease) stage 4, GFR 15-29 ml/min: -Follows up with Dr. Swain as an outpatient Status: Chronic (7) Diabetes: -last A1c at goal (6.2) -Accucheks, ISS, hold scheduled insulin given poor oral intake; hold oral hypoglycemic agents, hypoglycemia precautions -cardiac consistent carb diet (mechanical soft) as tolerated Status: Chronic Qualifiers: Diabetes mellitus type: type 2 Diabetes mellitus termination clerk insulin use: with termination clerk use Diabetes mellitus complication status: with kidney complications Diabetes mellitus complication detail: with chronic kidney disease Chronic kidney disease stage: stage 4 (severe) Qualified Code(s): E11.22 - Type 2 diabetes mellitus with diabetic chronic kidney disease; N18.4 - Chronic kidney disease, stage 4 (severe); Z79.4 - senior living (current) use of insulin (8) Depression: Status: Acute (9) HTN (hypertension): Goal blood pressure less than 140/90 mmHg. For now continue to holding off on antihypertensives because of episodes of hypotension. Started on midodrine. Status: Chronic Qualifiers: Hypertension type: essential hypertension Qualified Code(s): I10 - Essential (primary) hypertension (10) Generalized weakness: -Likely multifactorial given physical deconditioning, dehydration, poor oral intake, electrolyte abnormalities, impaired renal function -Strict fall precautions -PT/OT/ST evaluations appreciated; participation limited due to lack of motivation Status: Acute (11) Hypotension: Status: Acute Qualifiers: Hypotension type: unspecified hypotension type Qualified Code(s): I95.9 - Hypotension, unspecified Additional A&P Information Right-sided heart failure in setting of history of mitral and tricuspid valve annuloplasty: Echocardiogram shows an EF 55% with severely increased RV size, severely decreased RV systolic function with moderate pulmonary hypertension, RVSP of 65 mmHg, severely dilated LA and RA, moderate to severe mitral regurgitation, moderate aortic stenosis. Patient looks intravolume depleted. Patient has been on fluids for last 4 days does not have any difficulty in breathing and continues to remain on 2 L saturating 98 200%. For now stop the IV fluids. We'll give 1 more dose of Lasix 40 mg IV today. Patient would most likely benefit from dobutamine but given all other comorbidities will start patient on midodrine 2.5 mg twice daily for now. SANDY on chronic kidney disease stage IV: Resolved for now. Creatinine back to baseline. BUN also improving. Stop IV fluids as above along with IV Lasix 40 mg once today. Baseline creatinine around 2. Appreciate renal recommendations. Avoid nephrotoxic drugs. Hyponatremia/hyperkalemia: Sodium levels improving with salt tablets. Continue 1 g twice daily. Hyperkalemia has resolved. Continue to monitor. Telemetry. No metabolic acidosis at present. Depression: Appreciate psychiatry evaluation. Continue with Lexapro 30 mg daily. Patient seems to be improving. Patient wants to sit up in chair. Still not working well with physical therapy. Continue to encourage out of bed to chair, physical therapy. Avoid sedating medications, pain medications for now. Anemia: Hemoglobin at baseline. Check iron panel. Looking at the old iron panel seems to be severe iron deficiency anemia. For now start patient on IV iron to finish 1 g course over 5 days. Patient does not have any fever, improving leukocytosis off antibiotics. For now continue to hold off on antibiotics. Procalcitonin negative, folate within normal limits, vitamin B12 elevated, TSH elevated but free T3 within normal limits and free T4 mildly elevated. For now we will continue to monitor. -Morbid obesity: BMI-35 kg/m2 though overall nutrition status is quite poor -hx of PE; on AC with Xarelto; hold for now -CAD s/p CABG -Chronic atrial fibrillation; on AC with Xarelto, digoxin discontinued by cardio, on Amiodarone -has dual chamber pacemaker in place -HTN -GI ppx with PPI -DVT ppx with heparin Continue with carb consistent carbohydrate diet along with Glucerna with each meals. -Dispo: Patient had SNF placement for severe generalized deconditioning in setting of right-sided heart failure and chronic kidney disease. Patient has been more agreeable to do physical therapy with PT though continues to remain tired most likely from severe generalized deconditioning. Patient has been accepted at [facility] though awaiting prior authorization. -Code status: DNR, ok with intubation Attestations Medical Necessity Statement*: Patient requires further hospitalization for management of setting of hyponatremia, SANDY on chronic kidney disease, right-sided heart failure in setting of cuspid valve annuloplasty while safe discharge planning is sought and patient is awaiting prior authorization for placement to SNF. Time Spent in Patient Care: Greater than 35 minutes (>than 50% of time spent in counselling and/or direct pt care on unit). Coding Level of Care Code Acute Offset Lithographic Press Setter for Braeden Kuhn Diagnoses Right heart failure I50.810 Status post mitral valve annuloplasty Z98.890 H/O tricuspid valve annuloplasty Z98.890 Hyponatremia E87.1 SANDY (acute kidney injury) N17.9 CKD (chronic kidney disease) stage 4, GFR 15-29 ml/min N18.4 Diabetes E11.22; N18.4; Z79.4 Diabetes mellitus type: type 2 Diabetes mellitus termination clerk insulin use: with termination clerk use Diabetes mellitus complication status: with kidney complications Diabetes mellitus complication detail: with chronic kidney disease Chronic kidney disease stage: stage 4 (severe) Depression F32.9 HTN (hypertension) I10 Hypertension type: essential hypertension Generalized weakness R53.1 Hypotension I95.9 Hypotension type: unspecified hypotension type
[2020-11-11 15:58] LABS: Glucose Point of Care 222 mg/dL (70-110)
--- NOTE | 2020-11-11 18:28 | PC.NURSE ---
Shift Summary Patient up to chair for whole shift, participated with PT. 2 soft BMs today. Patient did not eat much solid food but did drink glucerna with meals. No further needs identified at this time. Nurse to continue to monitor.
[2020-11-11 20:15] LABS: Glucose Point of Care 260 mg/dL (70-110)
[2020-11-11] MEDS: atorvastatin 40 mg Tablet 20 MG PO (22:05)
[2020-11-11] MEDS: trazodone 100 mg Tablet PO (22:05)
[2020-11-11] MEDS: morphine 4 mg/mL SDV 1 mL 1 MG IVP (22:05)
[2020-11-11] MEDS: hyDROXYzine 25 mg Capsule PO (22:05)
[2020-11-12] VITALS (30 sets, daily range): BP systolic 92–109; BP diastolic 50–83; PULSE 0–97; RESP 3–38; TEMP 35.7–36.4; O2SAT 85–100
[2020-11-12 05:33] LABS: Alanine Aminotransferase < 5 U/L (0-33); Albumin Level 2.9 g/dL (3.5-5.2); Alkaline Phosphatase 91 IU/L (35-105); Anion Gap 13.8 (5-19); Aspartate Amino Transferase 10 U/L (0-32); Blood Urea Nitrogen 59 mg/dL (8-23); Calcium 8.6 mg/dL (8.5-10.5); Carbon Dioxide 24 mmol/L (22-29); Chloride 98 mmol/L (98-107); Globulin 3.1 g/dL (1.3-4.6); Glomerular Filtration Rate 28.2 mL/min (90-130); Glucose 159 mg/dL (65-115); Osmolality Calculated 292 mOsm/kg (285-295); Potassium 4.8 mmol/L (3.5-5.1); Sodium 131 mmol/L (136-145); Total Bilirubin 0.5 mg/dL (0.15-1.2)
[2020-11-12 06:49] LABS: Glucose Point of Care 157 mg/dL (70-110)
--- NOTE | 2020-11-12 09:11 | DCPLANNER ---
Pg 2 of IM updated and reviewed with pt. No questions. Copy provided.
--- NOTE | 2020-11-12 09:20 | P.PN_ITS ---
Subjective Subjective: Interval history: complains of skin itching - received vistaril Medications: Reviewed: Yes Vitals/I&O/Wt Last Vital Signs Temp 96.6 F L 11/12/20 07:16 Pulse 86 11/12/20 07:16 Resp 26 H 11/12/20 07:16 BP 92/60 11/12/20 07:16 Pulse Ox 100 11/12/20 07:16 11/11/20 11/12/20 11/12/20 22:59 06:59 14:59 Intake Total 1461.25 / 2131.25 100 / 2231.25 Output Total 450 / 450 Balance 1011.25 / 1681.25 100 / 1781.25 Weight last 48 hrs Weight 101.287 kg Weight 97.885 kg Physical Exam Const: COMMON NORMALS: no acute distress Extremity: GENERAL: Yes edema Urinary Catheter Management^: Slater: Cath Placed During This Visit: yes Reason for Continuing Indwelling Catheter: Acute Urinary Retention or Obstructi on Urinary Catheter Date of Insertion: 10/28/20 Urinary Catheter Time of Insertion: 12:10 Data : 11/11/20 03:00 11/12/20 04:49 A&P Additional A&P Information Impression: 1. SANDY/CKD, renal function improved. Diuresed in response to IV lasix 2. Hyponatremia, improved to 131 mEq/L 3. Cor pulmonale 4. Anemia, iron deficient, Hb Stable, receiving IV iron Recommend: Continue NaCl tablets, begin oral furosemide Attestations Medical Necessity Statement*: per primary service Time Spent in Patient Care: 16 - 35 minutes Coding Level of Care Code Acute Wire Turning Machine Operator for Braeden Kuhn
[2020-11-12] MEDS: heparin 5,000 unit/mL INJ 1 mL 5000 UNIT SUBCUT ×2 (09:28→20:54)
[2020-11-12] MEDS: hyDROXYzine 25 mg Capsule PO ×2 (09:28→20:54)
[2020-11-12] MEDS: escitalopram 10 mg Tablet 30 MG PO (09:31)
[2020-11-12] MEDS: pantoprazole DR 40 mg Tablet PO (09:32)
[2020-11-12] MEDS: sennosides-docusate Tablet 1 TAB PO (09:32)
[2020-11-12] MEDS: midodrine 5 mg TABLET 2.5 MG PO ×2 (09:32→18:06)
[2020-11-12] MEDS: sodium chloride 1 gm Tablet PO ×2 (09:32→18:06)
[2020-11-12] MEDS: metoprolol tartrate 25 mg Tablet 37.5 MG PO ×2 (09:33→18:06)
[2020-11-12] MEDS: amiodarone 200 mg Tablet PO (09:33)
[2020-11-12 11:09] LABS: Glucose Point of Care 164 mg/dL (70-110)
[2020-11-12] MEDS: iron sucrose 200 MG in sodium chloride 0.9% (100 ml) 100 ML IV (13:05)
--- NOTE | 2020-11-12 14:50 | P.PN_ITS ---
Subjective Subjective: Interval history: No acute events overnight. Patient remained stable. Afebrile, hemodynamically stable. Labs and vitals noted. For the morning on evaluation patient was just moved back to the bed. Complaining of mild itching for which she was given Vistaril. Worked with physical therapy. Vitals/I&O/Wt Last Vital Signs Temp 96.9 F L 11/12/20 14:40 Pulse 86 11/12/20 14:40 Resp 16 11/12/20 14:40 BP 100/50 11/12/20 14:40 Pulse Ox 91 11/12/20 14:40 11/11/20 11/12/20 11/12/20 22:59 06:59 14:59 Intake Total 1461.25 / 2131.25 100 / 2231.25 Output Total 450 / 450 Balance 1011.25 / 1681.25 100 / 1781.25 Weight last 48 hrs Weight 101.287 kg Weight 97.885 kg Physical Exam Narrative: EXAM NARRATIVE: General: No acute distress, AO x3, sitting in chair, more agreeable to have conversation and physical therapy today. HEENT: PERRLA, pupils bilaterally equal and reactive Chest: Normal vesicular breath sounds, no added sounds, equal good air entry bilaterally CVS: S1-S2 regular, no murmurs, no tachycardia, no gallops, no rubs Abdomen: Soft, nontender, no organomegaly, bowel sounds present Neuro: No focal deficits, no facial deformity, AO x3, power 5/5 in all limbs Extremities: 1+2 pitting edema bilateral lower limbs Urinary Catheter Management^: Slater: Cath Placed During This Visit: yes Reason for Continuing Indwelling Catheter: Acute Urinary Retention or Obstruction Urinary Catheter Date of Insertion: 10/28/20 Urinary Catheter Time of Insertion: 12:10 Data : 11/11/20 03:00 11/12/20 04:49 A&P Assessment and plan (1) Right heart failure: Status: Acute (2) Status post mitral valve annuloplasty: Status: Acute (3) H/O tricuspid valve annuloplasty: Status: Acute (4) Hyponatremia: Status: Acute (5) SANDY (acute kidney injury): Status: Acute (6) CKD (chronic kidney disease) stage 4, GFR 15-29 ml/min: -Follows up with Dr. Swain as an outpatient Status: Chronic (7) Diabetes: -last A1c at goal (6.2) -Accucheks, ISS, hold scheduled insulin given poor oral intake; hold oral hypoglycemic agents, hypoglycemia precautions -cardiac consistent carb diet (mechanical soft) as tolerated Status: Chronic Qualifiers: Diabetes mellitus type: type 2 Diabetes mellitus long-term insulin use: with remote computer terminal operator use Diabetes mellitus complication status: with kidney complic ations Diabetes mellitus complication detail: with chronic kidney disease Chronic kidney disease stage: stage 4 (severe) Qualified Code(s): E11.22 - Type 2 diabetes mellitus with diabetic chronic kidney disease; N18.4 - Chronic kidney disease, stage 4 (severe); Z79.4 - superintendent container terminal (current) use of insulin (8) Depression: Status: Acute (9) HTN (hypertension): Goal blood pressure less than 140/90 mmHg. For now continue to holding off on antihypertensives because of episodes of hypotension. Started on midodrine. Status: Chronic Qualifiers: Hypertension type: essential hypertension Qualified Code(s): I10 - Essential (primary) hypertension (10) Generalized weakness: -Likely multifactorial given physical deconditioning, dehydration, poor oral intake, electrolyte abnormalities, impaired renal function -Strict fall precautions -PT/OT/ST evaluations appreciated; participation limited due to lack of motivation Status: Acute (11) Hypotension: Status: Acute Qualifiers: Hypotension type: unspecified hypotension type Qualified Code(s): I95.9 - Hypotension, unspecified Additional A&P Information Right-sided heart failure in setting of history of mitral and tricuspid valve annuloplasty: Echocardiogram shows an EF 55% with severely increased RV size, severely decreased RV systolic function with moderate pulmonary hypertension, RVSP of 65 mmHg, severely dilated LA and RA, moderate to severe mitral regurgitation, moderate aortic stenosis. Patient looks intravolume depleted. Fluids stopped yesterday. Remains on room air saturating 90% Switch IV Lasix to oral. Continue with 40 mg oral Lasix daily for now. Monitor urine output. Patient would most likely benefit from dobutamine but given all other comorbidities will start patient on midodrine 2.5 mg twice daily for now. SANDY on chronic kidney disease stage IV: Resolved for now. Creatinine and BUN continues to improve. Switch Lasix to oral 40 mg daily. Baseline creatinine around 2. Appreciate renal recommendations. Avoid nephrotoxic drugs. Hyponatremia/hyperkalemia: Sodium levels improving with salt tablets. Continue 1 g twice daily. Hyperkalemia has resolved. Continue to monitor. Telemetry. No metabolic acidosis at present. Depression: Appreciate psychiatry evaluation. Continue with Lexapro 30 mg daily. Patient seems to be improving. Patient wants to sit up in chair. Still not working well with physical therapy. Continue to encourage out of bed to chair, physical therapy. Avoid sedating medications, pain medications for now. Anemia: Hemoglobin at baseline. Check iron panel. Looking at the old iron panel seems to be severe iron deficiency anemia. For now start patient on IV iron to finish 1 g course over 5 days. Patient does not have any fever, improving leukocytosis off antibiotics. For now continue to hold off on antibiotics. Procalcitonin negative, folate within normal limits, vitamin B12 elevated, TSH elevated but free T3 within normal limits and free T4 mildly elevated. For now we will continue to monitor. -Morbid obesity: BMI-35 kg/m2 though overall nutrition status is quite poor -hx of PE; on AC with Xarelto; hold for now -CAD s/p CABG -Chronic atrial fibrillation; on AC with Xarelto, digoxin discontinued by cardio, on Amiodarone -has dual chamber pacemaker in place -HTN -GI ppx with PPI -DVT ppx with heparin Continue with carb consistent carbohydrate diet along with Glucerna with each me als. -Dispo: Patient had SNF placement for severe generalized deconditioning in setting of right-sided heart failure and chronic kidney disease. Patient has been more agreeable to do physical therapy with PT though continues to remain tired most likely from severe generalized deconditioning. Patient has been accepted at [facility] though awaiting prior authorization. -Code status: DNR, ok with intubation Plan for the day: Continue to encourage patient to increase oral intake, continue with Ensure. Continue with physical therapy and continue to encourage patient to get involved more in physical therapy. Though patient is improving. Continue with salt tablets for hyponatremia. Start patient on oral Lasix. Attestations Medical Necessity Statement*: Requires further hospitalization for management of hyponatremia, CKD in setting of right-sided heart failure with history of mitral and tricuspid valve annuloplasty while patient awaits safe discharge planning with placement to SNF. Time Spent in Patient Care: Greater than 35 minutes (>than 50% of time spent in counselling and/or direct pt care on unit) . Coding Level of Care Code Acute Training Development Director for Chg Fwd Diagnoses Right heart failure I50.810 Status post mitral valve annuloplasty Z98.890 H/O tricuspid valve annuloplasty Z98.890 Hyponatremia E87.1 SANDY (acute kidney injury) N17.9 CKD (chronic kidney disease) stage 4, GFR 15-29 ml/min N18.4 Diabetes E11.22; N18.4; Z79.4 Diabetes mellitus type: type 2 Diabetes mellitus remote computer terminal operator insulin use: with remote computer terminal operator use Diabetes mellitus complication status: with kidney complications Diabetes mellitus complication detail: with chronic kidney disease Chronic kidney disease stage: stage 4 (severe) Depression F32.9 HTN (hypertension) I10 Hypertension type: essential hypertension Generalized weakness R53.1 Hypotension I95.9 Hypotension type: unspecified hypotension type
[2020-11-12] MEDS: FUROsemide 40 mg Tablet PO (15:38)
[2020-11-12 16:42] LABS: Glucose Point of Care 219 mg/dL (70-110)
--- NOTE | 2020-11-12 19:27 | PC.NURSE ---
Recieved report and found patient to be in bed with eyes closed. No voiced concerns at this time. Call light in reach room free of clutter and bedside table in reach. Will continue to monitor and assist as needed following CPOC
[2020-11-12] MEDS: atorvastatin 40 mg Tablet 20 MG PO (20:54)
[2020-11-12] MEDS: trazodone 100 mg Tablet PO (20:54)
[2020-11-12 21:23] LABS: Glucose Point of Care 251 mg/dL (70-110)
[2020-11-12] MEDS: morphine 4 mg/mL SDV 1 mL 2 MG IVP (23:09)
[2020-11-13] VITALS (103 sets, daily range): BP systolic 88–109; BP diastolic 54–70; PULSE 78–97; RESP 10–29; TEMP 35.9–36.6; O2SAT 87–100
--- NOTE | 2020-11-13 03:00 | PC.NURSE ---
Patient continues to voice itching on her back. Patient has been turned back washed and lotion applied. Vistaryl given and no relief found. Provider notified will await new orders.
[2020-11-13] MEDS: OLANZapine 10 mg VIAL 5 MG IM (03:24)
[2020-11-13] MEDS: morphine 4 mg/mL SDV 1 mL 2 MG IVP (03:24)
--- NOTE | 2020-11-13 03:29 | PC.NURSE ---
patient recieved 5 mg zyprexa via IM injection to Left ventrogluteal muscle. Will monitor for effect
[2020-11-13 06:15] LABS: Glucose Point of Care 186 mg/dL (70-110)
[2020-11-13 07:41] LABS: Alanine Aminotransferase < 5 U/L (0-33); Albumin Level 2.5 g/dL (3.5-5.2); Alkaline Phosphatase 96 IU/L (35-105); Anion Gap 15.2 (5-19); Aspartate Amino Transferase 12 U/L (0-32); Blood Urea Nitrogen 58 mg/dL (8-23); Calcium 8.6 mg/dL (8.5-10.5); Carbon Dioxide 20 mmol/L (22-29); Chloride 97 mmol/L (98-107); Globulin 3.3 g/dL (1.3-4.6); Glomerular Filtration Rate 28.2 mL/min (90-130); Glucose 194 mg/dL (65-115); Osmolality Calculated 285 mOsm/kg (285-295); Potassium 5.2 mmol/L (3.5-5.1); Sodium 127 mmol/L (136-145); Total Bilirubin 0.6 mg/dL (0.15-1.2); Total Protein 5.8 g/dL (6.6-8.7)
[2020-11-13 08:42] LABS: Cortisol Random 16.93 ug/mL (2.47-19.5)
[2020-11-13] MEDS: heparin 5,000 unit/mL INJ 1 mL 5000 UNIT SUBCUT (08:44)
[2020-11-13] MEDS: FUROsemide 40 mg Tablet PO (08:46)
[2020-11-13] MEDS: metoprolol tartrate 25 mg Tablet 37.5 MG PO ×2 (08:46→17:18)
[2020-11-13] MEDS: amiodarone 200 mg Tablet PO (08:46)
[2020-11-13] MEDS: sodium chloride 1 gm Tablet PO ×2 (08:46→17:19)
[2020-11-13] MEDS: pantoprazole DR 40 mg Tablet PO (08:46)
[2020-11-13] MEDS: escitalopram 10 mg Tablet 30 MG PO (08:46)
[2020-11-13] MEDS: midodrine 5 mg TABLET 2.5 MG PO ×2 (08:46→17:19)
--- NOTE | 2020-11-13 09:32 | P.PN_ITS ---
Subjective Subjective: Interval history: No acute events overnight. Somehow patient was given Zyprexa IM at around 4 AM for itching in her back. On examination sleeping in bed but wakes up to calling her name. States she is feeling tired and sleepy. She worked with physical therapy today and walk with assistance in the east. She took around 2-3 steps. Feeling tired. Denies any nausea, vo miting, headache. Has remained afebrile and hemodynamically stable. Vitals/I&O/Wt Last Vital Signs Temp 96.7 F L 11/13/20 07:22 Pulse 92 11/13/20 07:22 Resp 22 H 11/13/20 07:22 BP 102/70 11/13/20 07:22 Pulse Ox 92 11/13/20 07:22 11/12/20 11/13/20 11/13/20 22:59 06:59 14:59 Intake Total 340 / 450 120 / 570 Output Total 450 / 450 50 / 500 Balance -110 / 0 70 / 70 Weight last 48 hrs Weight 101.287 kg Physical Exam Narrative: EXAM NARRATIVE: General: No acute distress, AO x3, sitting in chair, more agreeable to have conversation and physical therapy today. HEENT: PERRLA, pupils bilaterally equal and reactive Chest: Normal vesicular breath sounds, no added sounds, equal good air entry bilaterally CVS: S1-S2 regular, no murmurs, no tachycardia, no gallops, no rubs Abdomen: Soft, nontender, no organomegaly, bowel sounds present Neuro: No focal deficits, no facial deformity, AO x3, power 5/5 in all limbs Extremities: 1+2 pitting edema bilateral lower limbs Urinary Catheter Management^: Slater: Cath Placed During This Visit: yes Reason for Continuing Indwelling Catheter: Acute Urinary Retention or Obstruction Urinary Catheter Date of Insertion: 10/28/20 Urinary Catheter Time of Insertion: 12:10 Data : 11/11/20 03:00 11/13/20 06:55 A&P Assessment and plan (1) Right heart failure: Status: Acute (2) Status post mitral valve annuloplasty: Status: Acute (3) H/O tricuspid valve annuloplasty: Status: Acute (4) Hyponatremia: Status: Acute (5) SANDY (acute kidney injury): Status: Acute (6) CKD (chronic kidney disease) stage 4, GFR 15-29 ml/min: -Follows up with Dr. Swain as an outpatient Status: Chronic (7) Diabetes: -last A1c at goal (6.2) -Accucheks, ISS, hold scheduled insulin given poor oral intake; hold oral hypoglycemic agents, hypoglycemia precautions -cardiac consistent carb diet (mechanical soft) as tolerated Status: Chronic Qualifiers: Chronic kidney disease stage: stage 4 (severe) Diabetes mellitus complication detail: with chronic kidney disease Diabetes mellitus complication status: with kidney complications Diabetes mellitus almond blancher operator insulin use: with almond blancher operator use Diabetes mellitus type: type 2 Qualified Code(s): E11.22 - Type 2 diabetes mellitus with diabetic chronic kidney disease; N18.4 - Chronic kidney disease, stage 4 (severe); Z79.4 - nurse extern (current) use of insulin (8) Depression: Status: Acute (9) HTN (hypertension): Goal blood pressure less than 140/90 mmHg. For now continue to holding off on antihypertensives because of episodes of hypotension. Started on midodrine. Status: Chronic Qualifiers: Hypertension type: essential hypertension Qualified Code(s): I10 - Essential (primary) hypertension (10) Generalized weakness: -Likely multifactorial given physical deconditioning, dehydration, poor oral intake, electrolyte abnormalities, impaired renal function -Strict fall precautions -PT/OT/ST evaluations appreciated; participation limited due to lack of motivation Status: Acute (11) Hypotension: Status: Acute Qualifiers: Hypotension type: unspecified hypotension type Qualified Code(s): I95.9 - Hypotension, unspecified Additional A&P Information Right-sided heart failure in setting of history of mitral and tricuspid valve annuloplasty: Echocardiogram shows an EF 55% with severely increased RV size, severely decreased RV systolic function with moderate pulmonary hypertension, RVSP of 65 mmHg, severely dilated LA and RA, moderate to severe mitral regurgitation, mode rate aortic stenosis. Patient looks intravolume depleted. Fluids stopped yesterday. Remains on room air saturating 90% Continue Lasix oral 40 mg daily. Monitor urine output. Patient would most likely benefit from dobutamine but given all other comorbidities will start patient on midodrine 2.5 mg twice daily for now. SANDY on chronic kidney disease stage IV: Resolved for now. Creatinine and BUN continues to improve. Continue with Lasix to oral 40 mg daily. Baseline creatinine around 2. Appreciate renal recommendations. Avoid nephrotoxic drugs. Hyponatremia/hyperkalemia: Sodium levels improving with salt tablets. Continue 1 g twice daily. Hyperkalemia has resolved. Continue to monitor. Insulin 10 units, D50 Telemetry. No metabolic acidosis at present. Depression: Appreciate psychiatry evaluation. Continue with Lexapro 30 mg daily. Patient seems to be improving. Patient wants to sit up in chair. Still not working well with physical therapy. Continue to encourage out of bed to chair, physical therapy. Avoid sedating medications, pain medications for now. Anemia: Hemoglobin at baseline. Iron panel consistent with iron deficiency anemia. Continue with IV iron 200 mg IV daily to finish a 1 g course. Patient does not have any fever, improving leukocytosis off antibiotics. For now continue to hold off on antibiotics. Procalcitonin negative, folate within normal limits, vitamin B12 elevated, TSH elevated but free T3 within normal limits and free T4 mildly elevated. For now we will continue to monitor. -Morbid obesity: BMI-35 kg/m2 though overall nutrition status is quite poor -hx of PE; on AC with Xarelto -CAD s/p CABG -Chronic atrial fibrillation; on AC with Xarelto, digoxin discontinued by cardio, on Amiodarone -has dual chamber pacemaker in place -HTN -GI ppx with PPI -Xarelto will help with DVT prophylaxis as well. Continue with carb consistent carbohydrate diet along with Glucerna with each meals. -Dispo: Patient needs SNF placement for severe generalized deconditioning in setting of right-sided heart failure and chronic kidney disease. Patient has been more agreeable to do physical therapy with PT though continues to remain tired most likely from severe generalized deconditioning. Patient has been accepted at [facility] though awaiting prior authorization. -Code status: DNR, ok with intubation Plan for the day: Continue to encourage patient to increase oral intake, continue with Ensure. Continue with physical therapy and continue to encourage patient to get involved more in physical therapy. Though patient is improving. Continue with salt tablets for hyponatremia. Start patient on oral Lasix. Attestations Medical Necessity Statement*: Requires further hospitalization for right-sided heart failure, severe depression, SANDY, hyponatremia while safe discharge planning to SNF is sought. Time Spent in Patient Care: Greater than 35 minutes (>than 50% of time spent in counselling and/or direct pt care on unit) . Coding Level of Care Code Acute Grinder Set Up Operator Gear Tool for Chg Fwd Diagnoses Right heart failure I50.810 Status post mitral valve annuloplasty Z98.890 H/O tricuspid valve annuloplasty Z98.890 Hyponatremia E87.1 SANDY (acute kidney injury) N17.9 CKD (chronic kidney disease) stage 4, GFR 15-29 ml/min N18.4 Diabetes E11.22; N18.4; Z79.4 Chronic kidney disease stage: stage 4 (severe) Diabetes mellitus complication detail: with chronic kidney disease Diabetes mellitus complication status: with kidney complications Diabetes mellitus almond blancher operator insulin use: with almond blancher operator use Diabetes mellitus type: type 2 Depression F32.9 HTN (hypertension) I10 Hypertension type: essential hypertension Generalized weakness R53.1 Hypotension I95.9 Hypotension type: unspecified hypotension type
[2020-11-13] MEDS: cetirizine 10 mg Tablet PO (10:30)
[2020-11-13] MEDS: insulin regular-human 10 UNIT in SYRINGE 1 EACH IVP (10:31)
[2020-11-13] MEDS: dextrose 50% syringe 50 mL IVP (10:31)
[2020-11-13 12:11] LABS: Glucose Point of Care 172 mg/dL (70-110)
[2020-11-13] MEDS: iron sucrose 200 MG in sodium chloride 0.9% (100 ml) 100 ML 220 MG IV (12:27)
--- NOTE | 2020-11-13 13:31 | P.PN_ITS ---
Subjective Subjective: Interval history: complains of back pain. Took a few steps today Medications: Reviewed: Yes Vitals/I&O/Wt Last Vital Signs Temp 96.7 F L 11/13/20 12:00 Pulse 90 11/13/20 12:00 Resp 19 H 11/13/20 12:00 BP 92/58 11/13/20 12:00 Pulse Ox 100 11/13/20 12:00 11/12/20 11/13/20 11/13/20 22:59 06:59 14:59 Intake Total 340 / 450 120 / 570 350.1 / 350.1 Output Total 450 / 450 50 / 500 Balance -110 / 0 70 / 70 350.1 / 350.1 Weight last 48 hrs Weight 101.287 kg Physical Exam Extremity: GENERAL: Yes edema Urinary Catheter Management^: Slater: Cath Placed During This Visit: yes Reason for Continuing Indwelling Catheter: Acute Urinary Retention or Obstruction Urinary Catheter Date of Insertion: 10/28/20 Urinary Catheter Time of Insertion: 12:10 Data : 11/11/20 03:00 11/13/20 06:55 A&P Additional A&P Information Impression: 1. SANDY/CKD, urine output less now on oral furosemide, serum sodium lower, potassium higher 2. Cor pulmonale 3. Anemia, iron deficient, receiving IV iron 4. Mild metabolic acidosis Recommend: Continue NaCl tablets, oral furosemide. Low potassium diet, add sodium bicarbonate Attestations Medical Necessity Statement*: per primary service Time Spent in Patient Care: 16 - 35 minutes Coding Level of Care Code Acute International Logistics Analyst for Braeden Kuhn
[2020-11-13 16:42] LABS: Glucose Point of Care 188 mg/dL (70-110)
[2020-11-13] MEDS: sennosides-docusate Tablet 1 TAB PO (17:19)
[2020-11-13] MEDS: sodium bicarbonate 650 mg Tablet PO (17:19)
--- NOTE | 2020-11-13 20:21 | PC.NURSE ---
Patient has no complaints at this time. Will monitor.
[2020-11-13 20:23] LABS: Glucose Point of Care 294 mg/dL (70-110)
[2020-11-13] MEDS: trazodone 100 mg Tablet PO (20:45)
[2020-11-13] MEDS: hyDROXYzine 25 mg Capsule PO (20:45)
[2020-11-13] MEDS: atorvastatin 40 mg Tablet 20 MG PO (20:45)
[2020-11-14] VITALS (9 sets, daily range): BP systolic 91–128; BP diastolic 49–84; PULSE 83–99; RESP 16–30; TEMP 35.7–36.6; O2SAT 90–99
--- NOTE | 2020-11-14 03:37 | PC.NURSE ---
Patient stated I feel like I need to go poop. Patient refused to get up to BSC. Nurse educated patient that it is best that she gets up to keep her strength up. Patient still refused. Patient was placed on bedpan with 2 assist. Patient stated this thing hurts, get it off of me. Bedpan removed. Absorbent pad placed under patient. Patient has not had a bowel movement yet. Absorbent pads and linens are currently clean and dry. Will continue to monitor.
--- NOTE | 2020-11-14 05:08 | PC.NURSE ---
Patient's linen/absorbent pad currently clean and dry.
--- NOTE | 2020-11-14 06:01 | PC.NURSE ---
Unable to get morning labs on patient after several attempts by different lab staff. Dr. Prabhakar notified.
[2020-11-14 06:49] LABS: Glucose Point of Care 165 mg/dL (70-110)
--- NOTE | 2020-11-14 07:39 | PC.NURSE ---
Dr. Perry notified morning labs have not been drawn. No new orders received at this time. Nurse to continue to monitor.
[2020-11-14] MEDS: sodium chloride 1 gm Tablet PO ×3 (09:52→21:23)
[2020-11-14] MEDS: sennosides-docusate Tablet 1 TAB PO ×2 (09:52→17:55)
[2020-11-14] MEDS: rivaroxaban 10 mg Tablet 15 MG PO (09:52)
[2020-11-14] MEDS: escitalopram 10 mg Tablet 30 MG PO (09:52)
[2020-11-14] MEDS: amiodarone 200 mg Tablet PO (09:53)
[2020-11-14] MEDS: pantoprazole DR 40 mg Tablet PO (09:53)
[2020-11-14] MEDS: cetirizine 10 mg Tablet PO (09:53)
[2020-11-14] MEDS: midodrine 5 mg TABLET 2.5 MG PO ×2 (09:53→17:54)
[2020-11-14] MEDS: metoprolol tartrate 25 mg Tablet 37.5 MG PO ×2 (09:53→17:56)
[2020-11-14] MEDS: sodium bicarbonate 650 mg Tablet PO ×2 (09:53→17:56)
--- NOTE | 2020-11-14 10:47 | P.PN_ITS ---
Subjective Subjective: Interval history: This morning patient was examined, she is laying in bed, she is complaining that her back is itching her, overall she has no complaints, denies chest pain, denies shortness of breath, no nausea, no vomiting, nursing staff were unable to draw blood from her, will retry this afternoon Vitals/I&O/Wt Last Vital Signs Temp 96.2 F L 11/14/20 07:13 Pulse 96 11/14/20 07:13 Resp 22 H 11/14/20 07:13 BP 91/79 11/14/20 07:13 Pulse Ox 96 11/14/20 07:13 11/13/20 11/14/20 11/14/20 22:59 06:59 14:59 Intake Total 510 / 860.1 220 / 1080.1 360 / 360 Output Total 325 / 325 200 / 525 Balance 185 / 535.1 20 / 555.1 360 / 360 Weight last 48 hrs Weight 101.423 kg Physical Exam Const: COMMON NORMALS: no acute distress ORIENTATION/CONSCIOUSNESS: Yes awake, Yes oriented to person and Yes oriented to place; not oriented to time HENMT: COMMON NORMALS: normocephalic HEAD & SCALP: normocephalic Neck/C-Spine: COMMON NORMALS: no JVD Resp: COMMON NORMALS: normal respiratory effort, No retractions, No use of accessory muscles and clear to auscultation bilaterally AUSCULTATION: clear to auscultation bilaterally Cardio: COMMON NORMALS: no JVD, regular rate, regular rhythm, S1 normal heart sound present and S2 normal heart sound present RATE: regular rate RHYTHM: regular rhythm HEART SOUNDS: S1 normal heart sound present and S2 normal heart sound present GI: COMMON NORMALS: Normal to inspection, nondistended, normoactive bowel sounds present, Soft to palpation, non-tender, No hepatosplenomegaly present, no masses and no bruits PALPATION: Yes Soft to palpation and Yes No hepatosplenomegaly present Extremity: COMMON NORMALS: capillary refill normal, no clubbing, cyanosis or edema and no calf tenderness NARRATIVE EXTREMITY EXAM: 1+ pedal edema, anasarca Neuro: SENSORIUM/ORIENTATION: Yes oriented to person, Yes oriented to place and No oriented to time Psych: COMMON NORMALS: mental status grossly normal Urinary Catheter Management^: Slater: Cath Placed During This Visit: yes Reason for Continuing Indwelling Catheter: Accurate Measurement of Urinary Output in Critically Ill Patients Urinary Catheter Date of Insertion: 10/28/20 Urinary Catheter Time of Insertion: 12:10 Data : 11/11/20 03:00 11/13/20 06:55 A&P Assessment and plan (1) Right heart failure: Status: Acute (2) Status post mitral valve annuloplasty: Status: Acute (3) H/O tricuspid valve annuloplasty: Status: Acute (4) Hyponatremia: Status: Acute (5) SANDY (acute kidney injury): Status: Acute (6) CKD (chronic kidney disease) stage 4, GFR 15-29 ml/min: -Follows up with Dr. Swain as an outpatient Status: Chronic (7) Diabetes: -last A1c at goal (6.2) -Accucheks, ISS, hold scheduled insulin given poor oral intake; hold oral hypoglycemic agents, hypoglycemia precautions -cardiac consistent carb diet (mechanical soft) as tolerated Status: Chronic Qualifiers: Diabetes mellitus type: type 2 Diabetes mellitus senior care insulin use: with tank terminal gauger use Diabetes mellitus complication status: with kidney complications Diabetes mellitus complication detail: with chronic kidney disease Chronic kidney disease stage: stage 4 (severe) Qualified Code(s): E11.22 - Type 2 diabetes mellitus with diabetic chronic kidney disease; N18.4 - Chronic kidney disease, stage 4 (severe); Z79.4 - tank terminal gauger (current) use of insulin (8) Depression: Status: Acute (9) HTN (hypertension): Goal blood pressure less than 140/90 mmHg. For now continue to holding off on antihypertensives because of episodes of hypotension. Started on midodrine. Status: Chronic Qualifiers: Hypertension type: essential hypertension Qualified Code(s): I10 - Essential (primary) hypertension (10) Generalized weakness: -Likely multifactorial given physical deconditioning, dehydration, poor oral intake, electrolyte abnormalities, impaired renal function -Strict fall precautions -PT/OT/ST evaluations appreciated; participation limited due to lack of mo tivation Status: Acute (11) Hypotension: Status: Acute Qualifiers: Hypotension type: unspecified hypotension type Qualified Code(s): I95.9 - Hypotension, unspecified Additional A&P Information Right-sided heart failure in setting of history of mitral and tricuspid valve annuloplasty: Echocardiogram shows an EF 55% with severely increased RV size, severely decreased RV systolic function with moderate pulmonary hypertension, RVSP of 65 mmHg, severely dilated LA and RA, moderate to severe mitral regurgitation, moderate aortic stenosis. Patient looks intravolume depleted. Fluids stopped yesterday. Remains on room air saturating 90% Continue Lasix oral 40 mg dailytoday . Monitor urine output. midodrine 2.5 mg twice daily for now. SANDY on chronic kidney disease stage IV: waiting on am labs, Resolved for now. Creatinine and BUN continues to improve. Continue with Lasix to oral 40 mg daily. Baseline creatinine around 2. Appreciate renal recommendations. Avoid nephrotoxic drugs. Hyponatremia/hyperkalemia: Sodium levels improving with salt tablets. Continue 1 g twice daily. Awaiting morning labs Hyperkalemia has resolved. Continue to monitor. Insulin 10 units, D50 Telemetry. Awaiting morning labs, No metabolic acidosis at present. Depression: Appreciate psychiatry evaluation. Continue with Lexapro 30 mg daily. Patient seems to be improving. Patient wants to sit up in chair. Still not working well with physical therapy. Continue to encourage out of bed to chair, physical therapy. Avoid sedating medications, pain medications for now. Anemia: Hemoglobin at baseline. Iron panel consistent with iron deficiency anemia. Continue with IV iron 200 mg IV daily to finish a 1 g course. Patient does not have any fever, improving leukocytosis off antibiotics. For now continue to hold off on antibiotics. Procalcitonin negative, folate within normal limits, vitamin B12 elevated, TSH elevated but free T3 within normal limits and free T4 mildly elevated. For now we will continue to monitor. -Morbid obesity: BMI-35 kg/m2 though overall nutrition status is quite poor -hx of PE; on AC with Xarelto -CAD s/p CABG -Chronic atrial fibrillation; on AC with Xarelto, digoxin discontinued by cardio, on Amiodarone -has dual chamber pacemaker in place -HTN -GI ppx with PPI -Xarelto will help with DVT prophylaxis as well. Continue with carb consistent carbohydrate diet along with Glucerna with each meals. -Dispo: Patient needs SNF placement for severe generalized deconditioning in setting of right-sided heart failure and chronic kidney disease. Patient has been more agreeable to do physical therapy with PT though continues to remain tired most likely from severe generalized deconditioning. Patient has been accepted at [facility] though awaiting prior authorization. -Code status: DNR, ok with intubation Plan for the day: Start Lasix therapy, blood pressures are quite soft, which seem to be more chronic for her, will consult cardiology for long-term options Attestations Medical Necessity Statement*: Patient requires hospitalization for right-sided heart failure, SANDY, hyponatremia, hyperkalemia Coding Level of Care Code Acute Product Technician for Zhaoberta Kuhn Diagnoses Right heart failure I50.810 Status post mitral valve annuloplasty Z98.890 H/O tricuspid valve annuloplasty Z98.890 Hyponatremia E87.1 SANDY (acute kidney injury) N17.9 CKD (chronic kidney disease) stage 4, GFR 15-29 ml/min N18.4 Diabetes E11.22; N18.4; Z79.4 Diabetes mellitus type: type 2 Diabetes mellitus senior care insulin use: with tank terminal gauger use Diabetes mellitus complication status: with kidney complications Diabetes mellitus complication detail: with chronic kidney disease Chronic kidney disease stage: stage 4 (severe) Depression F32.9 HTN (hypertension) I10 Hypertension type: essential hypertension Generalized weakness R53.1 Hypotension I95.9 Hypotension type: unspecified hypotension type
[2020-11-14 11:00] LABS: Glucose Point of Care 253 mg/dL (70-110)
--- NOTE | 2020-11-14 11:52 | DCPLANNER ---
IMM completed with pt on 11/14/2020 @ [id number]. We reviewed pt rights with a copy that pt had.
[2020-11-14 11:57] LABS: Basophils # 0.1 10^3/uL (0.0-0.1); Eosinophils # 0.3 10^3/uL (0.0-0.8); Eosinophils % 5.2 %; Hematocrit 34.6 % (37.0-47.0); Hemoglobin 10.3 g/dL (11.5-15.3); Lymphocytes # 0.5 10^3/uL (0.8-4.8); Lymphocytes % 9.2 %; Mean Corpuscular HGB Conc 29.8 g/dL (30.0-36.0); Mean Corpuscular Hemoglobin 23.4 pg (28.0-34.0); Mean Corpuscular Volume 78.6 fL (81-99); Monocytes # 0.6 10^3/uL (0.2-0.9); Monocytes % 11.6 %; Neutrophils # 3.47 10^3/uL (1.8-7.7); Neutrophils % 69.6 %; Nucleated Red Blood Cells % 0.6 %; Platelet Count 104 10^3/cmm (130-400); Red Cell Distribution Width 21.7 % (12.1-15.1)
[2020-11-14] MEDS: FUROsemide 40 mg Tablet PO (12:16)
[2020-11-14 12:32] LABS: Alanine Aminotransferase < 5 U/L (0-33); Albumin Level 2.7 g/dL (3.5-5.2); Alkaline Phosphatase 94 IU/L (35-105); Anion Gap 16.3 (5-19); Aspartate Amino Transferase 12 U/L (0-32); Blood Urea Nitrogen 54 mg/dL (8-23); Calcium 8.4 mg/dL (8.5-10.5); Carbon Dioxide 21 mmol/L (22-29); Chloride 98 mmol/L (98-107); Glomerular Filtration Rate 28.2 mL/min (90-130); Glucose 250 mg/dL (65-115); Osmolality Calculated 293 mOsm/kg (285-295); Potassium 5.3 mmol/L (3.5-5.1); Sodium 130 mmol/L (136-145); Total Bilirubin 0.7 mg/dL (0.15-1.2); Total Protein 5.7 g/dL (6.6-8.7)
[2020-11-14 12:34] LABS: Creatinine Clr Calc Pharmacy 35.4212
--- NOTE | 2020-11-14 13:23 | PM.CONSULT ---
Providers/Reason For Consult Consulting Physican/Specialty*: Dr. Pavon, cardiology Reason for Consult*: Congestive heart failure, hypertension Attending Physician: Praveen Perry MD Primary Care Provider: Heather Núñez MD History of Present Illness History of Present Illness Lizzie Pro is a 65 year old female with PMHx of long standing persistent atrial fibrillation s/p MAZE procedure and ANGELO ligation, poorly controlled DM, HTN, diastolic CHF, severe MR s/p mitral valve repair and tricuspid valve repair. She underwent mitral valve repair using 26 mm Physio ring and tricuspid valve repair using 26 mm MC3 tricuspid ring on December. She also underwent full left and right-sided Maze and left atrial appendage ligation using 40 mm AtriaCure clip. Post surgery, she underwent dual-chamber permanent pacemaker placement on December. Left ventricular ejection fraction 44%. Follow-up limited echo with ejection fraction 45%. Resolution of small circumferential pericardial effusion. However she has been persistently in atrial fibrillation since then. Her amiodarone was previously stopped because of the same. She is also on high dose of Cardizem as well as metoprolol. She was in the hospital for about a week in 09/2020. She had moderate to large right-sided pleural effusion s/p thoracentesis with removal of 1 L of transudative effusion. Her urine output was low initially but later on with albumin infusions and IV Lasix she was able to diurese and her renal function improved. She was started on low-dose metoprolol tartrate, digoxin and amiodarone for rate control. She also underwent VQ scan which showed low probability of PE tested negative for Covid PCR and influenza. She maintained her saturation on ambulation and was discharged home without supplemental oxygen. She was also treated for UTI and possible pneumonia with Levaquin. Urine culture grew pansensitive Klebsiella oxytoca. Unfortunately, since being seen in office on 10/05/20, she went downhill last week on October. It seems like she came in with poor PO intake, continued use of medications including diuretics and poor UO on 10/28/20. She has been in the hospital since then for SANDY on CKD stage IV, dehydration, hypokalemia. She was initially on IV fluid, for a short time on levophed, followed by intermittent diuresis and then IV fluid. She is now on lasix 40 mg daily. IV fluid has been stopped. BP has been soft. She also had echocardiogram that showed low normal LV function, dilated RV with decreased RV function and severe pHTN. It seems like through out her stay she has been depressed and evaluated by psychiatry and her lexapro dose was adjusted. She was also started on midodrine fe w days back for soft BP. Today, she tells me she is not feeling well. Review of Systems General: Reports: 10 or more systems reviewed and unremarkable except in HPI and below Const: Denies: fever(s), chills, fatigue or malaise Card: Denies: chest pain, palpitations or dyspnea on exertion Resp: Denies: productive cough GI: Denies: abdominal pain, nausea, vomiting or diarrhea : Denies: flank pain or difficulty voiding Musc: Reports: back pain and joint pain (left shoulder pain) Skin/Breast: Reports: pruritus; Denies: rash Neuro: Denies: headache(s) Psych: Reports: depression and hopelessness Louie/Lymph: Denies: easy bleeding All/Imm: Denies: urticaria Meds/Allergies Home Medications and Allergies Home Medications Medication Instructions Recorded Confirmed Last Taken Type escitalopram oxalate 10 mg tablet 20 mg PO DAILY 01/20/20 10/28/20 09/07/20 History simvastatin 10 mg tablet 10 mg PO DAILY #30 tab 03/25/20 10/28/20 09/06/20 Rx Refresh Tears See Rx Instructions .ROUTE .COMPLEX 05/05/20 10/28/20 Unknown History Systane (PF) See Rx Instructions .ROUTE .COMPLEX 05/05/20 10/28/20 Unknown History glipizide 20 mg PO DAILY 05/05/20 10/28/20 09/07/20 History trazodone 100 mg PO BEDTIME 05/05/20 10/28/20 09/06/20 History Levemir FlexTouch U-100 Insuln 10 unit SUBCUT QAM #0 ml 09/15/20 10/28/20 09/07/20 Rx clotrimazole 1 % topical cream 1 applic TOPICAL BID 28 Days #15 gm 09/21/20 10/28/20 Unknown Rx torsemide 100 mg tablet 100 mg PO 0800 #30 tab 09/21/20 10/28/20 Unknown Rx torsemide 20 mg tablet 20 mg PO .qpm #30 tab 09/21/20 10/28/20 Unknown Rx amiodarone 200 mg tablet 200 mg PO DAILY #30 tab 09/28/20 10/28/20 Unknown Rx metoprolol tartrate 25 mg tablet 25 mg PO BID #180 tab 10/11/20 10/28/20 Unknown Rx rivaroxaban 10 mg tablet 15 mg PO DAILY 30 Days #135 tab 10/11/20 10/28/20 Unknown Rx Benadryl 2 cap PO PRN 10/28/20 10/28/20 Unknown History hydroxyzine pamoate 25 mg PO TID PRN 10/28/20 10/28/20 Unknown History metolazone 5 mg PO DAILY 10/28/20 10/28/20 Unknown History nystatin 1 applic TOPICAL TID 10/28/20 10/28/20 Unknown History potassium chloride See Rx Instructions .ROUTE .COMPLEX 10/28/20 10/28/20 Unknown History spironolactone See Rx Instructions .ROUTE .COMPLEX 10/28/20 10/28/20 Unknown History Allergies Allergy/AdvReac Type Severity Reaction Status Date / Time Penicillins Allergy Unknown Verified 05/05/20 08:39 Current Medications Current Medications Generic Name Dose Route Start Last Admin Trade Name Freq PRN Reason Stop Dose Admin Acetaminophen 650 mg 10/28/20 14:47 10/29/20 21:03 Acetaminophen 325 Mg Tablet PO 650 mg Q6H PRN Administration MILD PAIN Amiodarone HCl 200 mg 10/29/20 09:00 11/14/20 09:53 Amiodarone 200 Mg Tablet PO 200 mg DAILY JM Administration Atorvastatin Calcium 20 mg 10/28/20 21:00 11/13/20 20:45 Atorvastatin 40 Mg Tablet PO 20 mg BEDTIME JM Administration Cetirizine HCl 10 mg 11/13/20 09:30 11/14/20 09:53 Cetirizine 10 Mg Tablet PO 10 mg DAILY JM Administration Clotrimazole 1 applic 10/28/20 18:00 11/14/20 09:54 Clotrimazole 1% Cream 30 Gm TOPICAL Not Given BID JM Escitalopram Oxalate 30 mg 11/07/20 09:00 11/14/20 09:52 Escitalopram 10 Mg Tablet PO 30 mg DAILY JM Administration Furosemide 40 mg 11/14/20 11:00 11/14/20 12:16 Furosemide 40 Mg Tablet PO 40 mg DAILY@0800 JM Administration Hydroxyzine Pamoate 25 mg 10/28/20 14:47 11/13/20 20:45 Hydroxyzine 25 Mg Capsule PO 25 mg TID PRN Administration Itching Iron Sucrose 200 mg/ Sodium 110 mls @ 220 mls/hr 11/11/20 12:00 11/13/20 13:10 Chloride IV 11/15/20 12:29 Infused Q24H JM Infusion Insulin Aspart 0 unit 10/28/20 18:00 11/14/20 12:16 Insulin Aspart 100 Unit/1 Ml SUBCUT 6 unit WM&BEDTIME JM Administration Protocol Metoprolol Tartrate 37.5 mg 11/02/20 18:00 11/14/20 09:53 Metoprolol Tartrate 25 Mg Tablet PO 37.5 mg BID JM Administration Metoprolol Tartrate 5 mg 11/04/20 02:21 11/04/20 02:42 Metoprolol Tartrate 1 Mg/1 Ml Sdv 5 Ml IV 5 mg PRN PRN Administration HEART RATE-HIGH Midodrine 2.5 mg 11/07/20 18:00 11/14/20 09:53 Midodrine 5 Mg Tablet PO 2.5 mg BID JM Administration Morphine Sulfate 2 mg 11/12/20 23:01 11/13/20 03:24 Morphine 4 Mg/Ml Sdv 1 Ml IVP 2 mg Q4H PRN Administration SEVERE PAIN Pantoprazole Sodium 40 mg 10/29/20 09:00 11/14/20 09:[address] 40 Mg Tablet PO 40 mg DAILY JM Administration Rivaroxaban 15 mg 11/14/20 09:00 11/14/20 09:52 Rivaroxaban 10 Mg Tablet PO 15 mg DAILY JM Administration Senna/Docusate Sodium 1 tab 10/28/20 18:00 11/14/20 09:52 Sennosides-Docusate Tablet PO 1 tab BID JM Administration Sodium Bicarbonate 650 mg 11/13/20 18:00 11/14/20 09:53 Sodium Bicarbonate 650 Mg Tablet PO 650 mg BID JM Administration Sodium Chloride 1 spray 11/02/20 16:59 11/02/20 17:06 Saline Nasal [place] 44ml Btl NASAL 1 spray PRN PRN Administration DRYNESS Trazodone HCl 100 mg 10/28/20 21:00 11/13/20 20:45 Trazodone 100 Mg Tablet PO 100 mg BEDTIME JM Administration PFSH Acute PFSH: Medical History Anemia, chronic disease Atrial fibrillation CHF (congestive heart failure) CKD (chronic kidney disease) stage 4, GFR 15-29 ml/min Coronary artery disease Diabetes HTN (hypertension) Morbid obesity Pacemaker Surgical History H/O tricuspid valve annuloplasty Hx of CABG S/P cholecystectomy S/P left atrial appendage ligation S/P Maze operation for atrial fibrillation Status post mitral valve annuloplasty Family History Other CAD (coronary artery disease) Diabetes Social History Smoking and tobacco status: never smoked Alcohol intake: never Lives independently: Yes Marital status: Single Vitals/I&O/Wt Last Vital Signs Temp 96.7 F L 11/14/20 10:53 Pulse 99 11/14/20 10:53 Resp 26 H 11/14/20 10:53 BP 104/49 11/14/20 10:53 Pulse Ox 95 11/14/20 10:53 11/13/20 11/14/20 11/14/20 22:59 06:59 14:59 Intake Total 510 / 860.1 220 / 1080.1 360 / 360 Output Total 325 / 325 200 / 525 Balance 185 / 535.1 20 / 555.1 360 / 360 Weight last 48 hrs Weight 223 lb 9.6 oz Physical Exam Const: COMMON NORMALS: no acute distress, patient oriented x3 and alert GENERAL APPEARANCE: cooperative, comfortable and well kempt HENMT: COMMON NORMALS: normocephalic, atraumatic, hearing grossly normal bilaterally and external ears normal HEAD & SCALP: normocephalic and atraumatic FACE & SINUS: normal facial exam and sinuses nontender; no edema EXTERNAL EAR: Yes external ears normal Eye: COMMON NORMALS: Equal, round and reactive pupils present, EOMs intact bilaterally, conjunctivae normal and no scleral icterus GENERAL EYE: appearance normal, both eyes and all related structures ALIGNMENT: Yes alignment normal EYELID: eyelids normal CONJUNCTIVA: Yes conjunctivae normal SCLERA: sclerae normal PUPIL: Yes Equal, round and reactive pupils present Neck/C-Spine: COMMON NORMALS: no lymphadenopathy, supple and Thyroid normal GENERAL: Yes normal visual inspection, Yes trachea midline and No Mass present (neck) THYROID: Thyroid normal CAROTIDS: Yes normal carotid upstroke CERVICAL SPINE: Yes cervical ROM normal Chest: COMMONS NORMALS: normal inspection of the chest and normal palpation of entire chest wall CHEST: Yes Symmetrical chest wall rise, No mass, No tenderness, No Surgical scars present (Chest) and No rash Resp: COMMON NORMALS: clear to auscultation bilaterally EFFORT & INSPECTION: Yes able to speak in complete sentences, No respiratory distress and No labored AUSCULTATION: clear to auscultation bilaterally, no crackles, no rales, no rhonchi, no wheezes and vesicular breath sounds Cardio: COMMON NORMALS: S1 normal heart sound present, S2 normal heart sound present and Peripheral pulses 2+ throughout JUGULAR VENOUS DISTENTION: JVD PALPATION: normal PMI RHYTHM: abnormal rhythm irregularly irregular HEART SOUNDS: S1 normal heart sound present, S2 normal heart sound present, no click, no gallops and no murmurs BRUITS: no abdominal aortic bruits, no carotid bruits and no femoral bruits PERIPHERAL PULSES: Peripheral pulses 2+ throughout, radial pulses present, posterior tibial pulses present and dorsalis pedis present GI: COMMON NORMALS: Soft to palpation and No hepatosplenomegaly present AUSCULTATION: Yes normoactive bowel sounds PALPATION: Yes Soft to palpation, No Tenderness to palpation present (GI), No Guarding due to palpation present (GI), No Rigid due to palpation, Yes No hepatosplenomegaly present and No Ascites present Extremity: GENERAL: No calf tenderness, No clubbing, Yes edema (3+ edema extending above knees) and No pallor Neuro: COMMON NORMALS: patient oriented x3 and no focal motor deficits SENSORIUM/ORIENTATION: Yes alert Psych: COMMON NORMALS: Normal thought process present and speech normal APPEARANCE: Yes well kempt SPEECH: Yes normal speech MOOD & AFFECT: Yes euthymic mood THOUGHT PROCESS: Normal thought process present THOUGHT CONTENT: Yes Normal thought content present Skin: HAIR: normal NAILS: normal and no clubbing Urinary Catheter Management^: Slater: Cath Placed During This Visit: yes Reason for Continuing Indwelling Catheter: Accurate Measurement of Urinary Output in Critically Ill Patients Urinary Catheter Date of Insertion: 10/28/20 Urinary Catheter Time of Insertion: 12:10 Data Labs: Other Labs: Laboratory Tests 10/28/20 10/29/20 11/02/20 10:05 12:32 03:00 Sodium 125 L Potassium 2.7 L* Carbon Dioxide 26 BUN 121 H* D Creatinine 4.2 H 3.9 H 2.3 H Total Bilirubin AST ALT Alkaline Phosphata se Total Protein Albumin Random Cortisol 11/04/20 11/12/20 11/13/20 03:10 04:49 04:10 Sodium Potassium Carbon Dioxide BUN Creatinine 2.2 H 1.8 H Total Bilirubin AST ALT Alkaline Phosphata se Total Protein Albumin Random Cortisol 16.93 11/14/20 11:45 Sodium Potassium Carbon Dioxide 21 L BUN 54 H Creatinine 1.8 H Total Bilirubin 0.7 AST 12 ALT < 5 Alkaline Phosphata se 94 Total Protein 5.7 L Albumin 2.7 L Random Cortisol Imaging^: Echo: I personally reviewed and interpreted this imaging study as follows: My impression: # 10/28/20 CONCLUSIONS 1-Small left ventricular cavity size. Normal left ventricular cavity size. Left ventricular ejection fraction is estimated at 55 %. Flattened septum in diastole consistent with right ventricle volume overload. 2-Severely increased right ventricular size. Severely decreased right ventricular systolic function. Moderate pulmonary hypertension, RVSP 65 mmHg. 3-Severely increased right atrial size. 4-Moderately increased left atrial size. 5-Severely thickened mitral valve. Severe mitral annular calcification. No mitral valve stenosis. Moderate to severe mitral valve regurgitation. 6-Severe aortic valve calcification. Moderate aortic valve stenosis, mean gradient, aortic valve is not well-visualized therefore cannot assess gradient on aortic valve area however appears to be moderately stenotic. 7-Structurally normal tricuspid valve without significant stenosis or regurgitation. Pulmonary artery systolic pressure is normal. 8-There is no pericardial effusion. 9-Right atrial pressure is around 20 mm of mercury. 10-No significant change since the prior echocardiogram study of 09/10/20. EKG^: EKG 1: I personally reviewed and interpreted this EKG as follows: My Interpretation: A. fib with RVR with RAD and RBBB. A&P Assessment and plan (1) Right heart failure: Patient has chronic RV failure with elevated JVD and peripheral edema presently. -She has markedly dilated RV with severely decreased RV function and severe pHTN. Septal flattening in systole and diastole consistent with RV volume and pressure overload. [place] forming RV and RV > LV. -Her LV filling is volume dependant and both increase or decrease in volume can impair LV filling and CO. -With attempts at fluid replacement and intermittent diuresis her renal function is at baseline now. -She has poor PO intake and UO has been averaging 500-600 cc in last few days.She is currently on -At this point, there is no indication or benefit of home IV inotropes especially dobutamine and would actually increase mortality. -I will continue with PO lasix at present dose. May need to uptitrate in next few days based on labs and volume status. -She would require really close monitoring of BP/HR, weight, UO. Patient's sister in law at bedside and greater than 30 minutes spent talking to the patient and her sister in law about findings, overall prognosis and management. Status: Acute Qualifiers: Heart failure chronicity: acute on chronic Qualified Code(s): I50.813 - Acute on chronic right heart failure (2) Acute kidney injury superimposed on chronic kidney disease: resolved Status: Acute (3) Atrial fibrillation: Permanent A. fib on metoprolol, Xarelto and amiodarone. -A. fib ablation offered to patient in past and was declined. Status: Acute Qualifiers: Atrial fibrillation type: unspecified Qualified Code(s): I48.91 - Unspecified atrial fibrillation (4) Pulmonary hypertension: Severe pHTN WHO group 2 -unfortunately PH directed therapy has not been very beneficial in this group. -Will consider doing RHC at a later date(if patient is willing). 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 However, eventualy would lead to more fluid retention and will require close monitoring Depression Anemia Generalized weakness and Deconditioning depression Thank you for allowing me to participate in patient's care. Please feel free to call with questions or concerns. Consult Attestations Medical Necessity Statement: Needs hospital stay for CHF, abnornmal electrolytes Time Spent in Patient Care: Greater than 35 minutes (>than 50% of time spent in counselling and/or direct pt care on unit). Coding Level of Care Code Acute Public Health Engineer for g Fwd Exam Comprehensive Diagnoses Right heart failure I50.813 Heart failure chronicity: acute on chronic Acute kidney injury superimposed on chronic kidney disease N17.9; N18.9 Atrial fibrillation I48.91 Atrial fibrillation type: unspecified Pulmonary hypertension I27.20 CKD (chronic kidney disease) stage 4, GFR 15-29 ml/min N18.4 H/O tricuspid valve annuloplasty Z98.890 Status post mitral valve annuloplasty Z98.890 Diabetes E11.22; N18.4; Z79.4 Diabetes mellitus type: type 2 Diabetes mellitus senior care insulin use: with senior care use Diabetes mellitus complication status: with kidney complications Diabetes mellitus complication detail: with chronic kidney disease Chronic kidney disease stage: stage 4 (severe)
[2020-11-14] MEDS: iron sucrose 200 MG in sodium chloride 0.9% (100 ml) 100 ML 220 MG IV (13:31)
--- NOTE | 2020-11-14 16:31 | P.PN_ITS ---
Subjective Subjective: Interval history: no change Medications: Reviewed: Yes Vitals/I&O/Wt Last Vital Signs Temp 96.7 F L 11/14/20 14:42 Pulse 91 11/14/20 14:42 Resp 26 H 11/14/20 14:42 BP 92/53 11/14/20 14:42 Pulse Ox 99 11/14/20 14:42 11/14/20 11/14/20 11/14/20 06:59 14:59 22:59 Intake Total 220 / 1080.1 360 / 360 Output Total 200 / 525 Balance 20 / 555.1 360 / 360 Weight last 48 hrs Weight 101.423 kg Physical Exam Extremity: GENERAL: Yes edema Urinary Catheter Management^: Slater: Cath Placed During This Visit: yes Reason for Continuing Indwelling Catheter: Accurate Measurement of Urinary Outpu t in Critically Ill Patients Urinary Catheter Date of Insertion: 10/28/20 Urinary Catheter Time of Insertion: 12:10 Data : 11/14/20 11:45 11/14/20 11:45 Echo: Radiologist's impression: 10/2020: 1-Small left ventricular cavity size. Normal left ventricular cavity size. Left ventricular ejection fraction is estimated at 55 %. Flattened septum in diastole consistent with right ventricle volume overload. 2-Severely increased right ventricular size. Severely decreased right ventricular systolic function. Moderate pulmonary hypertension, RVSP 65 mmHg. A&P Additional A&P Information Impression: 1. SANDY/CKD, mild hyperkalemia 2. Cor pulmonale, hyponatremia 3. Anemia, iron deficient, receiving IV iron 4. Mild metabolic acidosis improved on oral sodium bicarbonate Recommend: Continue NaCl tablets, oral furosemide. low potassium diet. Cardiology seeing patient today. Attestations Medical Necessity Statement*: per primary service Time Spent in Patient Care: 16 - 35 minutes Coding Level of Care Code Acute Territory Manager General Sales for Braeden Kuhn
[2020-11-14 16:36] LABS: Glucose Point of Care 186 mg/dL (70-110)
--- NOTE | 2020-11-14 20:52 | PC.NURSE ---
Bed bath and kenny care given with 2 assist. Linen and gown changed. Patient turned and repositioned. Will monitor.
[2020-11-14 21:14] LABS: Glucose Point of Care 229 mg/dL (70-110)
[2020-11-14] MEDS: trazodone 100 mg Tablet PO (21:23)
[2020-11-14] MEDS: hyDROXYzine 25 mg Capsule PO (21:23)
[2020-11-14] MEDS: atorvastatin 40 mg Tablet 20 MG PO (21:23)
[2020-11-15] VITALS: BP 110/63; PULSE 82; RESP 31; TEMP 36.6; O2SAT 96
--- NOTE | 2020-11-15 00:59 | PC.NURSE ---
Patient is currently resting in bed with eyes closed. Will monitor.
[2020-11-15 03:47] VITALS: BP 85/67; PULSE 83; RESP 27; TEMP 36.8; O2SAT 95
[2020-11-15 04:09] LABS: Hematocrit 37.7 % (37.0-47.0); Hemoglobin 10.8 g/dL (11.5-15.3); Mean Corpuscular HGB Conc 28.6 g/dL (30.0-36.0); Mean Corpuscular Hemoglobin 23.5 pg (28.0-34.0); Platelet Count 100 10^3/cmm (130-400); Red Cell Distribution Width 22.6 % (12.1-15.1); White Blood Count 5.3 10^3/uL (4.0-10.0)
[2020-11-15 04:40] LABS: Alanine Aminotransferase < 5 U/L (0-33); Albumin Level 2.9 g/dL (3.5-5.2); Alkaline Phosphatase 95 IU/L (35-105); Anion Gap 15.1 (5-19); Aspartate Amino Transferase 13 U/L (0-32); Blood Urea Nitrogen 56 mg/dL (8-23); Calcium 8.6 mg/dL (8.5-10.5); Carbon Dioxide 23 mmol/L (22-29); Chloride 98 mmol/L (98-107); Globulin 3.2 g/dL (1.3-4.6); Glomerular Filtration Rate 26.5 mL/min (90-130); Glucose 158 mg/dL (65-115); Osmolality Calculated 291 mOsm/kg (285-295); Potassium 5.1 mmol/L (3.5-5.1); Sodium 131 mmol/L (136-145); Total Bilirubin 0.7 mg/dL (0.15-1.2); Total Protein 6.1 g/dL (6.6-8.7)
[2020-11-15 05:06] VITALS: PULSE 99
[2020-11-15 05:17] LABS: Slide Review Slide Review Perform
[2020-11-15 05:21] LABS: Absolute Eosinophils 0.2 10^3/cmm (0.0-0.7); Absolute Segmented Neutrophil 3.7 10/cmm (1.6-7.1); Band Neutrophils Absolute 0.1 10^3/cmm (0.0-1.2); Eosinophils 5 %; Lymphocytes 13 %; Monocytes Absolute 0.4 10^3/cmm (0.1-0.6); Segmented Neutrophils 69 %; Total Cells Counted 100 (0-100)
[2020-11-15 05:22] LABS: Magnesium 2.2 mg/dL (1.7-2.3); NT Pro B Type Natriuretic Pept 7273 pg/mL (0-125); Phosphorus 2.1 mg/dL (2.5-4.5)
[2020-11-15 05:23] LABS: Absolute Neutrophil 3.8 10^3/cmm (1.4-6.5); Anisocytosis 2+; Hypochromasia 2+; Microcytosis 1+; Platelet Estimate Decreased (Normal); Poikilocytosis 2+; Polychromasia Trace; Schistocytes Trace
[2020-11-15 06:25] LABS: Glucose Point of Care 174 mg/dL (70-110)
[2020-11-15 07:04] VITALS: BP 102/63; PULSE 93; RESP 30; TEMP 35.6; O2SAT 91
[2020-11-15] MEDS: rivaroxaban 10 mg Tablet 15 MG PO (08:42)
[2020-11-15] MEDS: FUROsemide 40 mg Tablet PO (08:42)
[2020-11-15] MEDS: midodrine 5 mg TABLET 2.5 MG PO (08:43)
[2020-11-15] MEDS: cetirizine 10 mg Tablet PO (08:44)
[2020-11-15] MEDS: pantoprazole DR 40 mg Tablet PO (08:44)
[2020-11-15] MEDS: escitalopram 10 mg Tablet 30 MG PO (08:44)
[2020-11-15] MEDS: metoprolol tartrate 25 mg Tablet 37.5 MG PO (08:44)
[2020-11-15] MEDS: sodium chloride 1 gm Tablet PO (08:44)
[2020-11-15] MEDS: sodium bicarbonate 650 mg Tablet PO (08:45)
[2020-11-15] MEDS: amiodarone 200 mg Tablet PO (08:45)
[2020-11-15] MEDS: sennosides-docusate Tablet 1 TAB PO (08:45)
--- NOTE | 2020-11-15 10:25 | P.PN_ITS ---
Subjective Subjective: Interval history: This morning patient was examined, she sitting up to the side of the bed, with the help of nursing staff, the source of confusion overnight, no complaints of shortness of breath, no chest pain, still has diffuse edema, but improved, Vitals/I&O/Wt Last Vital Signs Temp 96.1 F L 11/15/20 07:04 Pulse 93 11/15/20 07:04 Resp 30 H 11/15/20 07:04 BP 102/63 11/15/20 07:04 Pulse Ox 91 11/15/20 07:04 11/14/20 11/15/20 11/15/20 22:59 06:59 14:59 Intake Total 240 / 600 250 / 850 120 / 120 Output Total 200 / 200 125 / 325 Balance 40 / 400 125 / 525 120 / 120 Weight last 48 hrs Weight 103.419 kg Weight 102.512 kg Physical Exam Const: COMMON NORMALS: no acute distress GENERAL APPEARANCE: cooperative ORIENTATION/CONSCIOUSNESS: Yes awake, Yes oriented to person and Yes oriented to place; not oriented to time HENMT: COMMON NORMALS: normocephalic HEAD & SCALP: normocephalic Neck/C-Spine: COMMON NORMALS: no JVD Resp: COMMON NORMALS: normal respiratory effort, No retractions, No use of accessory muscles and clear to auscultation bilaterally AUSCULTATION: clear to auscultation bilaterally Cardio: COMMON NORMALS: no JVD, regular rate, regular rhythm, S1 normal heart sound present and S2 normal heart sound present RATE: regular rate RHYTHM: regular rhythm HEART SOUNDS: S1 normal heart sound present and S2 normal heart sound present GI: COMMON NORMALS: Normal to inspection, nondistended, normoactive bowel sounds present, Soft to palpation, non-tender, No hepatosplenomegaly present, no masses and no bruits PALPATION: Yes Soft to palpation and Yes No hepatosplenomegaly present Extremity: COMMON NORMALS: capillary refill normal, no clubbing, cyanosis or edema and no calf tenderness NARRATIVE EXTREMITY EXAM: 1+ pedal edema Neuro: SENSORIUM/ORIENTATION: Yes oriented to person, Yes oriented to place and No oriented to time Psych: COMMON NORMALS: mental status grossly normal Urinary Catheter Management^: Slater: Cath Placed During This Visit: yes Reason for Continuing Indwelling Catheter: Accurate Measurement of Urinary Output in Critically Ill Patients Urinary Catheter Date of Insertion: 10/28/20 Urinary Catheter Time of Insertion: 12:10 Data : 11/15/20 03:48 11/15/20 03:48 A&P Assessment and plan (1) Right heart failure: Status: Acute Qualifiers: Heart failure chronicity: acute on chronic Qualified Code(s): I50.813 - Acute on chronic right heart failure (2) Status post mitral valve annuloplasty: Status: Acute (3) H/O tricuspid valve annuloplasty: Status: Acute (4) Hyponatremia: Status: Acute (5) SANDY (acute kidney injury): Status: Acute (6) CKD (chronic kidney disease) stage 4, GFR 15-29 ml/min: -Follows up with Dr. Swain as an outpatient Status: Chronic (7) Diabetes: -last A1c at goal (6.2) -Accucheks, ISS, hold scheduled insulin given poor oral intake; hold oral hypoglycemic agents, hypoglycemia precautions -cardiac consistent carb diet (mechanical soft) as tolerated Status: Chronic Qualifiers: Diabetes mellitus type: type 2 Diabetes mellitus correction insulin use: with local intermodal truck driver use Diabetes mellitus complication status: with kidney complications Diabetes mellitus complication detail: with chronic kidney disease Chronic kidney disease stage: stage 4 (severe) Qualified Code(s): E11.22 - Type 2 diabetes mellitus with diabetic chronic kidney disease; N18.4 - Chronic kidney disease, stage 4 (severe); Z79.4 - nursing home (current) use of insulin (8) Depression: Status: Acute (9) HTN (hypertension): Goal blood pressure less than 140/90 mmHg. For now continue to holding off on antihypertensives because of episodes of hypotension. Started on midodrine. Status: Chronic Qualifiers: Hypertension type: essential hypertension Qualified Code(s): I10 - Essential (primary) hypertension (10) Generalized weakness: -Likely multifactorial given physical deconditioning, dehydration, poor oral intake, electrolyte abnormalities, impaired renal function -Strict fall precautions -PT/OT/ST evaluations appreciated; participation limited due to lack of motivation Status: Acute (11) Hypotension: Status: Acute Qualifiers: Hypotension type: unspecified hypotension type Qualified Code(s): I95.9 - Hypotension, unspecified Additional A&P Information Right-sided heart failure in setting of history of mitral and tricuspid valve annuloplasty: Echocardiogram shows an EF 55% with severely increased RV size, severely decreased RV systolic function with moderate pulmonary hypertension, RVSP of 65 mmHg, severely dilated LA and RA, moderate to severe mitral regurgitation, moderate aortic stenosis. Patient looks intravolume depleted. Fluids stopped yesterday. Remains on room air saturating 90%, urine output 525 cc Continue Lasix oral 40 mg daily Monitor urine output. midodrine 2.5 mg twice daily for now. SANDY on chronic kidney disease stage IV: waiting on am labs, Resolved for now. Creatinine and BUN continues to improve, currently 1.9 Continue with Lasix to oral 40 mg daily. Baseline creatinine around 2. Appreciate renal recommendations. Avoid nephrotoxic drugs. Hyponatremia/hyperkalemia: Serum sodium 131, potassium 5.1 sodium levels improving with salt tablets. Continue 1 g twice daily. Hyperkalemia has resolved. Continue to monitor. Insulin 10 units, D50 as needed Telemetry. A No metabolic acidosis at present. Depression: Appreciate psychiatry evaluation. Continue with Lexapro 30 mg daily. Patient seems to be improving. Patient wants to sit up in chair. Still not working well with physical therapy. Continue to encourage out of bed to chair, physical therapy. Avoid sedating medications, pain medications for now. Anemia: Hemoglobin at baseline. Iron panel consistent with iron deficiency anemia. Continue with IV iron 200 mg IV daily to finish a 1 g course. Patient does not have any fever, improving leukocytosis off antibiotics. For now continue to hold off on antibiotics. Procalcitonin negative, folate within normal limits, vitamin B12 elevated, TSH elevated but free T3 within normal limits and free T4 mildly elevated. For now we will continue to monitor. -Morbid obesity: BMI-35 kg/m2 though overall nutrition status is quite poor -hx of PE; on AC with Xarelto -CAD s/p CABG -Chronic atrial fibrillation; on AC with Xarelto, digoxin discontinued by cardio, on Amiodarone -has dual chamber pacemaker in place -HTN -GI ppx with PPI -Xarelto will help with DVT prophylaxis as well. Continue with carb consistent carbohydrate diet along with Glucerna with each meals. -Dispo: Patient needs SNF placement for severe generalized deconditioning in setting of right-sided heart failure and chronic kidney disease. Patient has been more agreeable to do physical therapy with PT though continues to remain tired most likely from severe generalized deconditioning. Patient has been accepted at [facility] though awaiting prior authorization. 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 [facility] Fwd Diagnoses Right heart failure I50.813 Heart failure chronicity: acute on chronic Status post mitral valve annuloplasty Z98.890 H/O tricuspid valve annuloplasty Z98.890 Hyponatremia E87.1 SANDY (acute kidney injury) N17.9 CKD (chronic kidney disease) stage 4, GFR 15-29 ml/min N18.4 Diabetes E11.22; N18.4; Z79.4 Diabetes mellitus type: type 2 Diabetes mellitus correction insulin use: with local intermodal truck driver use Diabetes mellitus complication status: with kidney complications Diabetes mellitus complication detail: with chronic kidney disease Chronic kidney disease stage: stage 4 (severe) Depression F32.9 HTN (hypertension) I10 Hypertension type: essential hypertension Generalized weakness R53.1 Hypotension I95.9 Hypotension type: unspecified hypotension type
[2020-11-15 10:40] VITALS: BP 112/67; PULSE 82; RESP 36; TEMP 35.9; O2SAT 98
[2020-11-15 11:01] LABS: Glucose Point of Care 180 mg/dL (70-110)
--- NOTE | 2020-11-15 11:23 | PM.DCS ---
Discharge Providers Date of Admission: 10/28/20 14:47 Date of Discharge: November 15, 2020 Attending Provider at Admission: Vianey Silva MD Attending Provider at Discharge: Praveen Perry MD Primary Care Provider: Heather Núñez MD Diagnoses at Discharge Discharge Diagnosis (1) Right heart failure: Status: Acute Qualifiers: Heart failure chronicity: acute on chronic Qualified Code(s): I50.813 - Acute on chronic right heart failure (2) Status post mitral valve annuloplasty: Status: Acute (3) H/O tricuspid valve annuloplasty: Status: Acute (4) Hyponatremia: Status: Acute (5) SANDY (acute kidney injury): Status: Acute (6) CKD (chronic kidney disease) stage 4, GFR 15-29 ml/min: Status: Chronic (7) Diabetes: Status: Chronic Qualifiers: Diabetes mellitus type: type 2 Diabetes mellitus prison insulin use: with terminal operations manager use Diabetes mellitus complication status: with kidney complications Diabetes mellitus complication detail: with chronic kidney disease Chronic kidney disease stage: stage 4 (severe) Qualified Code(s): E11.22 - Type 2 diabetes mellitus with diabetic chronic kidney disease; N18.4 - Chronic kidney disease, stage 4 (severe); Z79.4 - moth exterminator (current) use of insulin (8) Depression: Status: Acute (9) HTN (hypertension): Status: Chronic Qualifiers: Hypertension type: essential hypertension Qualified Code(s): I10 - Essential (primary) hypertension (10) Generalized weakness: Status: Acute (11) Hypotension: Status: Acute Qualifiers: Hypotension type: unspecified hypotension type Qualified Code(s): I95.9 - Hypotension, unspecified Reason for Visit Reason for Visit: GENERALIZED WEAKNESS/ HYPOTENSION Hospital Course Hospital Course This is a 65-year-old female with a past medical history of systolic and diastolic CHF, A. fib status post Maze procedure, and ANGELO ligation, on chronic anticoagulation with Xarelto, severe MR status post mitral valve repair, tricuspid valve repair, status post dual-chamber pacemaker placement, insulin-dependent type 2 diabetes, hypertension, who presents to [facility] due to generalized weakness, poor oral intake, generally feeling unwell Patient was admitted to [facility] for generalized weakness For patient's right-sided heart failure, systolic and diastolic CHF, in the setting of mitral and tricuspid valve angioplasty, echo showed EF 55%, with severely increased RV size, severely decreased RV systolic function with moderate pulmonary hypertension, RVSP of 65 mmHg, severely dilated LA and RA, moderate to severe mitral regurgitation, moderate aortic stenosis. As inpatient, patient had intermittent fluid and diuretic therapy, cardiology was consulted, she clinically improved. Discharged on Lasix 40 mg p.o. daily For acute kidney injury on chronic kidney disease stage IV, creatinine on discharge was 1.9 For hyponatremia, likely secondary to diuresis, heart failure, serum potassium on discharge was 131, discharged on salt tablets, instructions to closely monitor blood pressures and to monitor for fluid overload Hyperkalemia, resolved as inpatient For her depression, she required inpatient psychiatry evaluation, Lexapro increased to 30 mg daily Anemia, hemoglobin at baseline Given patient's physical deconditioning, right heart failure, CKD she required group home placement, discharged to group home Physical Exam Const: COMMON NORMALS: no acute distress GENERAL APPEARANCE: cooperative ORIENTATION/CONSCIOUSNESS: Yes awake, Yes oriented to person and Yes oriented to place; not oriented to time Neck/C-Spine: COMMON NORMALS: no JVD Resp: COMMON NORMALS: normal respiratory effort, No retractions, No use of accessory muscles and clear to auscultation bilaterally AUSCULTATION: clear to auscultation bilaterally Cardio: COMMON NORMALS: no JVD, regular rate, regular rhythm, S1 normal heart sound present and S2 normal heart sound present RATE: regular rate RHYTHM: regular rhythm HEART SOUNDS: S1 normal heart sound present and S2 normal heart sound present GI: COMMON NORMALS: Normal to inspection, nondistended, normoactive bowel sounds present, Soft to palpation, non-tender, No hepatosplenomegaly present, no masses and no bruits PALPATION: Yes Soft to palpation and Yes No hepatosplenomegaly present Extremity: COMMON NORMALS: capillary refill normal, no clubbing, cyanosis or edema and no calf tenderness NARRATIVE EXTREMITY EXAM: 1+ pedal edema Neuro: SENSORIUM/ORIENTATION: Yes oriented to person, Yes oriented to place and No oriented to time Urinary Catheter Management^: Slater: Cath Placed During This Visit: yes Reason for Continuing Indwelling Catheter: Accurate Measurement of Urinary Output in Critically Ill Patients Urinary Catheter Date of Insertion: 10/28/20 Urinary Catheter Time of Insertion: 12:10 Discharge Data Data Completed and Pending: Completed Studies During Hospitalization Category Date Time Status CT abdomen pelvis wo con [id number] Stat Cat Scan 10/28/20 10:41 Completed XR chest 1V merlin ble [id number] Stat Exams 10/28/20 10:41 Completed CV echo complete* [id number] Routine Ultrasound 10/30/20 14:59 Completed US renal BI* [id number] Routine Ultrasound 10/29/20 08:03 Completed Pending at discharge Category Date Time Status Complete Blood Co unt w/Auto AM LABS Lab 11/16/20 04:00 Ordered Complete Blood Co unt w/Auto AM LABS Lab 11/17/20 04:00 Ordered Comprehensive Met abolic Panel AM LA BS Lab 11/16/20 04:00 Ordered Comprehensive Met abolic Panel AM LA BS Lab 11/17/20 04:00 Ordered Magnesium AM LABS Lab 11/16/20 04:00 Ordered Magnesium AM LABS Lab 11/17/20 04:00 Ordered NT Pro B Type Santa riuretic Pept QAM Lab 11/16/20 06:00 Ordered NT Pro B Type Santa riuretic Pept QAM Lab 11/17/20 06:00 Ordered Phosphorus AM LAB S Lab 11/16/20 04:00 Ordered Phosphorus AM LAB S Lab 11/17/20 04:00 Ordered Labs from last 24 hours 11/15/20 11/15/20 11/15/20 10:41 06:20 03:48 WBC RBC Hgb Hct MCV MCH MCHC RDW Plt Count MPV Neut % (Auto) Lymph % (Auto) [place] % (Auto) Eos % (Auto) Baso % (Auto) Neut # (Auto) Lymph # (Auto) [place] # (Auto) Eos # (Auto) Baso # (Auto) Nucleated RBC % (a uto) Total Counted Atypical Lymphs % Absolute Neutrophi ls Segmented Neutroph ils Abs Segm Neuts (Ma n) Band Neutrophils Abs Band Neuts (Ma n) Lymphocytes (Manua l) Monocytes (Manual) Absolute Monocytes Eosinophils (Manua l) Absolute Eosinophi ls Basophils (Manual) Absolute Basophils Metamyelocytes Myelocytes Nucleated RBCs Nucleated RBCs # Platelet Estimate Polychromasia Hypochromasia Poikilocytosis Anisocytosis Microcytosis Schistocytes Sodium 131 L Potassium 5.1 Chloride 98 Carbon Dioxide 23 Anion Gap 15.1 BUN 56 H Creatinine 1.9 H GFR Calculation 26.5 L Glucose 158 H POC Glucose 180 174 Calculated Osmolal ity 291 Calcium 8.6 Phosphorus Magnesium Total Bilirubin 0.7 AST 13 ALT < 5 Alkaline Phosphata se 95 NT-Pro-B Natriuret Pep Total Protein 6.1 L Albumin 2.9 L Globulin 3.2 11/15/20 11/15/20 11/14/20 03:48 03:48 21:01 WBC 5.3 RBC 4.60 Hgb 10.8 L Hct 37.7 MCV 82.0 MCH 23.5 L MCHC 28.6 L RDW 22.6 H Plt Count 100 L MPV TNP Neut % (Auto) Lymph % (Auto) Not Reportable [place] % (Auto) Not Reportable Eos % (Auto) Baso % (Auto) Neut # (Auto) Lymph # (Auto) Not Reportable [place] # (Auto) Not Reportable Eos # (Auto) Baso # (Auto) Nucleated RBC % (a uto) Total Counted 100 Atypical Lymphs % 0.0 Absolute Neutrophi ls 3.8 Segmented Neutroph ils 69 Abs Segm Neuts (Ma n) 3.7 Band Neutrophils 2.0 Abs Band Neuts (Ma n) 0.1 Lymphocytes (Manua l) 13 Monocytes (Manual) 8.0 Absolute Monocytes 0.4 Eosinophils (Manua l) 5 Absolute Eosinophi ls 0.2 Basophils (Manual) 0.0 Absolute Basophils 0.0 Metamyelocytes 2.0 Myelocytes 1.0 Nucleated RBCs 1.0 Nucleated RBCs # Platelet Estimate Decreased L Polychromasia Trace Hypochromasia 2+ H Poikilocytosis 2+ H Anisocytosis 2+ H Microcytosis 1+ H Schistocytes Trace Sodium Potassium Chloride Carbon Dioxide Anion Gap BUN Creatinine GFR Calculation Glucose POC Glucose 229 Calculated Osmolal ity Calcium Phosphorus 2.1 L Magnesium 2.2 Total Bilirubin AST ALT Alkaline Phosphata se NT-Pro-B Natriuret Pep 7273 H Total Protein Albumin Globulin 11/14/20 11/14/20 11/14/20 16:31 11:45 11:45 WBC 5.0 RBC 4.40 Hgb 10.3 L Hct 34.6 L MCV 78.6 L MCH 23.4 L MCHC 29.8 L RDW 21.7 H Plt Count 104 L MPV Not Reportable Neut % (Auto) 69.6 Lymph % (Auto) 9.2 Bill[place] % (Auto) 11.6 Eos % (Auto) 5.2 Baso % (Auto) 1.0 Neut # (Auto) 3.47 Lymph # (Auto) 0.5 L [place] # (Auto) 0.6 Eos # (Auto) 0.3 Baso # (Auto) 0.1 Nucleated RBC % (a uto) 0.6 Total Counted Atypical Lymphs % Absolute Neutrophi ls Segmented Neutroph ils Abs Segm Neuts (Ma n) Band Neutrophils Abs Band Neuts (Ma n) Lymphocytes (Manua l) Monocytes (Manual) Absolute Monocytes Eosinophils (Manua l) Absolute Eosinophi ls Basophils (Manual) Absolute Basophils Metamyelocytes Myelocytes Nucleated RBCs Nucleated RBCs # 0.0 Platelet Estimate Polychromasia Hypochromasia Poikilocytosis Anisocytosis Microcytosis Schistocytes Sodium 130 L Potassium 5.3 H Chloride 98 Carbon Dioxide 21 L Anion Gap 16.3 BUN 54 H Creatinine 1.8 H GFR Calculation 28.2 L Glucose 250 H POC Glucose 186 Calculated Osmolal ity 293 Calcium 8.4 L Phosphorus Magnesium Total Bilirubin 0.7 AST 12 ALT < 5 Alkaline Phosphata se 94 NT-Pro-B Natriuret Pep Total Protein 5.7 L Albumin 2.7 L Globulin 3.0 Vitals: Last Vital Signs Temp 96.7 F L 11/15/20 10:40 Pulse 82 11/15/20 10:40 Resp 36 H 11/15/20 10:40 BP 112/67 11/15/20 10:40 Pulse Ox 98 11/15/20 10:40 Discharge Plan Discharge Patient Disposition: Xfer SNF Condition: Stable Prescriptions: New furosemide 40 mg Tablet 40 mg PO DAILY@0800 30 Days Qty: 30 RF: 0 midodrine 5 mg Tablet 2.5 mg PO BID 30 Days Qty: 30 RF: 0 pantoprazole 40 mg Tablet,Delayed Release (Dr/Ec) 40 mg PO DAILY 30 Days Qty: 30 RF: 0 escitalopram oxalate 10 mg Tablet 30 mg PO DAILY 30 Days Qty: 30 RF: 0 sennosides-docusate sodium 8.6-50 mg Tablet 1 tab PO BID 30 Days Qty: 60 RF: 0 sodium bicarbonate 650 mg Tablet 650 mg PO BID 30 Days Qty: 60 RF: 0 sodium chloride 1 gram Tablet 1 g PO TID 30 Days Qty: 90 RF: 0 Novolog U-100 Insulin aspart 100 unit/mL Solution See Rx Instructions .ROUTE .COMPLEX Qty: 10 RF: 0 Continued clotrimazole 1 % cream 1 applic TOPICAL BID 28 Days Qty: 15 RF: 1 simvastatin 10 mg tablet 10 mg PO DAILY Qty: 30 RF: 6 Pacerone 200 mg tablet 200 mg PO DAILY Qty: 30 RF: 3 Xarelto 10 mg tablet 15 mg PO DAILY 30 Days Qty: 135 RF: 3 metoprolol tartrate 25 mg tablet 25 mg PO BID Qty: 180 RF: 3 potassium chloride 10 mEq tablet extended release See Rx Instructions .ROUTE .COMPLEX RF: 0 nystatin 100,000 unit/gram cream 1 applic TOPICAL TID RF: 0 hydroxyzine pamoate 25 mg capsule 25 mg PO TID PRN (Reason: Itching) RF: 0 Benadryl 2 cap PO PRN RF: 0 spironolactone 25 mg tablet See Rx Instructions .ROUTE .COMPLEX RF: 0 trazodone 100 mg Tablet 100 mg PO BEDTIME RF: 0 Refresh Tears See Rx Instructions .ROUTE .COMPLEX RF: 0 Systane (PF) See Rx Instructions .ROUTE .COMPLEX RF: 0 Levemir FlexTouch U-100 Insuln 100 unit/mL (3 mL) insulin pen 10 unit SUBCUT QAM Qty: 0 RF: 0 Discontinued escitalopram oxalate 10 mg tablet 20 mg PO DAILY RF: 0 torsemide 100 mg tablet 100 mg PO 0800 Qty: 30 RF: 3 torsemide 20 mg tablet 20 mg PO .qpm Qty: 30 RF: 1 metolazone 5 mg Tablet 5 mg PO DAILY RF: 0 glipizide 10 mg tablet extended release 24hr 20 mg PO DAILY RF: 0 Hold Instructions: Resume on 09/21/20. hold until follow up with PCP Discharge Orders: Discharge Order (Routine); Ordered 11/15/20 Ordered By: Praveen Perry Other Ambulatory Orders: Comprehensive Metabolic Panel (Routine) Timeframe: 1 Week Facility: [facility] - Location: Lab - Main Lab Ordered By: Praveen Perry Referrals: Heather Núñez MD [Primary Care Provider] - Azam Whiteside MD [Physician] - 2 weeks Hellen Pavon MD [Physician] - 1 week (Please, follow-up with Dr. Pavon on November 22 at 8:15a.m. 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 [employer] Fwd Diagnoses Right heart failure I50.813 Heart failure chronicity: acute on chronic Status post mitral valve annuloplasty Z98.890 H/O tricuspid valve annuloplasty Z98.890 Hyponatremia E87.1 SANDY (acute kidney injury) N17.9 CKD (chronic kidney disease) stage 4, GFR 15-29 ml/min N18.4 Diabetes E11.22; N18.4; Z79.4 Diabetes mellitus type: type 2 Diabetes mellitus prison insulin use: with terminal operations manager use Diabetes mellitus complication status: with kidney complications Diabetes mellitus complication detail: with chronic kidney disease Chronic kidney disease stage: stage 4 (severe) Depression F32.9 HTN (hypertension) I10 Hypertension type: essential hypertension Generalized weakness R53.1 Hypotension I95.9 Hypotension type: unspecified hypotension type
[2020-11-15] MEDS: iron sucrose 200 MG in sodium chloride 0.9% (100 ml) 100 ML 220 MG IV (12:45)
--- NOTE | 2020-11-15 12:49 | PC.OT ---
OT TREATMENT WITHHELD TODAY DUE TO PATIENT SCHEDULED DISCHARGE
--- NOTE | 2020-11-15 12:51 | PM.PN ---
Subjective Subjective: Interval history: She complains of being tired. A. fib rate controlled on telemetry. Medications: Reviewed: Yes Medication Review Details: Current Medications Acetaminophen (Acetaminophen 325 Mg Tablet) 650 mg PO Q6H PRN PRN Reason: MILD PAIN Last Admin: 10/29/20 21:03 Dose: 650 mg Documented by: Amiodarone HCl (Amiodarone 200 Mg Tablet) 200 mg PO DAILY [facility] Last Admin: 11/15/20 08:45 Dose: 200 mg Documented by: Atorvastatin Calcium (Atorvastatin 40 Mg Tablet) 20 mg PO BEDTIME [facility] Last Admin: 11/14/20 21:23 Dose: 20 mg Documented by: Cetirizine HCl (Cetirizine 10 Mg Tablet) 10 mg PO DAILY [facility] Last Admin: 11/15/20 08:44 Dose: 10 mg Documented by: Clotrimazole (Clotrimazole 1% Cream 30 Gm) 1 applic TOPICAL BID [facility] Last Admin: 11/15/20 08:45 Dose: Not Given Documented by: Dextrose (Dextrose 50% Syringe 50 Ml) 25 ml IVP ONCE PRN; Protocol PRN Reason: hypoglycemia protocol Dextrose (Dextrose 50% Syringe 50 Ml) 50 ml IVP PRN PRN; Protocol PRN Reason: hypoglycemia protocol Escitalopram Oxalate (Escitalopram 10 Mg Tablet) 30 mg PO DAILY [facility] Last Admin: 11/15/20 08:44 Dose: 30 mg Documented by: Furosemide (Furosemide 40 Mg Tablet) 40 mg PO DAILY@0800 [facility] Last Admin: 11/15/20 08:42 Dose: 40 mg Documented by: Glucagon (Glucagon 1 Mg/Ml Inj 1 Ml) 1 mg IM ONCE PRN; Protocol PRN Reason: Adult Acute Hypoglycemia Prot. Hydroxyzine Pamoate (Hydroxyzine 25 Mg Capsule) 25 mg PO TID PRN PRN Reason: Itching Last Admin: 11/14/20 21:23 Dose: 25 mg Documented by: Dextrose (D5w) 500 mls @ 100 mls/hr IV ONCE PRN; Protocol PRN Reason: Adult Acute Hypoglycemia Prot Insulin Aspart (Insulin Aspart 100 Unit/1 Ml) 0 unit SUBCUT WM&BEDTIME [facility]; Protocol Last Admin: 11/15/20 11:57 Dose: 2 unit Documented by: Metoprolol Tartrate (Metoprolol Tartrate 25 Mg Tablet) 37.5 mg PO BID [facility] Last Admin: 11/15/20 08:44 Dose: 37.5 mg Documented by: Metoprolol Tartrate (Metoprolol Tartrate 1 Mg/1 Ml Sdv 5 Ml) 5 mg IV PRN PRN PRN Reason: HEART RATE-HIGH Last Admin: 11/04/20 02:42 Dose: 5 mg Documented by: Midodrine (Midodrine 5 Mg Tablet) 2.5 mg PO BID [facility] Last Admin: 11/15/20 08:43 Dose: 2.5 mg Documented by: Morphine Sulfate (Morphine 4 Mg/Ml Sdv 1 Ml) 2 mg IVP Q4H PRN PRN Reason: SEVERE PAIN Last Admin: 11/13/20 03:24 Dose: 2 mg Documented by: Ondansetron HCl (Ondansetron 2 Mg/Ml Sdv 2 Ml) 4 mg IVP Q6H PRN PRN Reason: NAUSEA AND VOMITING Pantoprazole Sodium (Pantoprazole Dr 40 Mg Tablet) 40 mg PO DAILY [facility] Last Admin: 11/15/20 08:44 Dose: 40 mg Documented by: Rivaroxaban (Rivaroxaban 10 Mg Tablet) 15 mg PO DAILY [facility] Last Admin: 11/15/20 08:42 Dose: 15 mg Documented by: Senna/Docusate Sodium (Sennosides-Docusate Tablet) 1 tab PO BID [facility] Last Admin: 11/15/20 08:45 Dose: 1 tab Documented by: Sodium Bicarbonate (Sodium Bicarbonate 650 Mg Tablet) 650 mg PO BID [facility] Last Admin: 11/15/20 08:45 Dose: 650 mg Documented by: Sodium Chloride (Saline Nasal [place] 44ml Btl) 1 spray NASAL PRN PRN PRN Reason: DRYNESS Last Admin: 11/02/20 17:06 Dose: 1 spray Documented by: Sodium Chloride (Sodium Chloride 1 Gm Tablet) 1 gm PO TID [facility] Last Admin: 11/15/20 08:44 Dose: 1 gm Documented by: Trazodone HCl (Trazodone 100 Mg Tablet) 100 mg PO BEDTIME [facility] Last Admin: 11/14/20 21:23 Dose: 100 mg Documented by: Vitals/I&O/Wt Last Vital Signs Temp 96.7 F L 11/15/20 10:40 Pulse 82 11/15/20 10:40 Resp 36 H 11/15/20 10:40 BP 112/67 11/15/20 10:40 Pulse Ox 98 11/15/20 10:40 11/14/20 11/15/20 11/15/20 22:59 06:59 14:59 Intake Total 240 / 710 250 / 960 120 / 120 Output Total 200 / 200 125 / 325 Balance 40 / 510 125 / 635 120 / 120 Weight last 48 hrs Weight 228 lb Weight 226 lb Physical Exam Narrative: EXAM NARRATIVE: Const COMMON NORMALS: no acute distress, patient oriented x3 and alert GENERAL APPEARANCE: cooperative, comfortable and well ket [facility] COMMON NORMALS: normocephalic, atraumatic, hearing grossly normal bilaterally and external ears normal HEAD & SCALP: normocephalic and atraumatic FACE & SINUS: normal facial exam and sinuses nontender; no edema EXTERNAL EAR: Yes external ears normal Eye COMMON NORMALS: Equal, round and reactive pupils present, EOMs intact bilaterally, conjunctivae normal and no scleral icterus GENERAL EYE: appearance normal, both eyes and all related structures ALIGNMENT: Yes alignment normal EYELID: eyelids normal CONJUNCTIVA: Yes conjunctivae normal SCLERA: sclerae normal PUPIL: Yes Equal, round and reactive pupils present Neck/C-Spine COMMON NORMALS: no lymphadenopathy, supple and Thyroid normal GENERAL: Yes normal visual inspection, Yes trachea midline and No Mass present (neck) THYROID: Thyroid normal CAROTIDS: Yes normal carotid upstroke CERVICAL SPINE: Yes cervical ROM normal Chest COMMONS NORMALS: normal inspection of the chest and normal palpation of entire chest wall CHEST: Yes Symmetrical chest wall rise, No mass, No tenderness, No Surgical scars present (Chest) and No rash Resp COMMON NORMALS: clear to auscultation bilaterally EFFORT & INSPECTION: Yes able to speak in complete sentences, No respiratory distress and No labored AUSCULTATION: clear to auscultation bilaterally, no crackles, no rales, no rhonchi, no wheezes and vesicular breath sounds Cardio COMMON NORMALS: S1 normal heart sound present, S2 normal heart sound present and Peripheral pulses 2+ throughout JUGULAR VENOUS DISTENTION: JVD PALPATION: normal PMI RHYTHM: abnormal rhythm irregularly irregular HEART SOUNDS: S1 normal heart sound present, S2 normal heart sound present, no click, no gallops and no murmurs BRUITS: no abdominal aortic bruits, no carotid bruits and no femoral bruits PERIPHERAL PULSES: Peripheral pulses 2+ throughout, radial pulses present, posterior tibial pulses present and dorsalis pedis present GI COMMON NORMALS: Soft to palpation and No hepatosplenomegaly present AUSCULTATION: Yes normoactive bowel sounds PALPATION: Yes Soft to palpation, No Tenderness to palpation present (GI), No Guarding due to palpation present (GI), No Rigid due to palpation, Yes No hepatosplenomegaly present and No Ascites present Extremity GENERAL: No calf tenderness, No clubbing, Yes edema (3+ edema extending above knees) and No pallor Neuro COMMON NORMALS: patient oriented x3 and no focal motor deficits SENSORIUM/ORIENTATION: Yes alert Psych COMMON NORMALS: Normal thought process present and speech normal APPEARANCE: Yes well kempt SPEECH: Yes normal speech MOOD & AFFECT: Yes euthymic mood THOUGHT PROCESS: Normal thought process present THOUGHT CONTENT: Yes Normal thought content present Skin HAIR: normal NAILS: normal and no clubbing Urinary Catheter Management^: Slater: Cath Placed During This Visit: yes Reason for Continuing Indwelling Catheter: Accurate Measurement of Urinary Output in Critically Ill Patients Urinary Catheter Date of Insertion: 10/28/20 Urinary Catheter Time of Insertion: 12:10 Data : 11/15/20 03:48 11/15/20 03:48 A&P Assessment and plan (1) Right heart failure: Patient has chronic RV failure with elevated JVD and peripheral edema. -She has markedly dilated RV with severely decreased RV function and severe pHTN. Septal flattening in systole and diastole consistent with RV volume and pressure overload. Reynolds forming RV and RV > LV. -Her LV filling is volume dependant and both increase or decrease in volume can impair LV filling and CO.(Ventricular interdependance) -With attempts at fluid replacement and intermittent diuresis her renal function is at baseline now. -She has poor PO intake and UO has been averaging 500-600 cc in last few days.She is currently on lasix 40 mg daily. -At this point, there is no indication or benefit of home IV inotropes especially dobutamine and would actually increase mortality. -I will continue with PO lasix at present dose. May need to uptitrate in next few days based on labs and volume status. -She would require really close monitoring of BP/HR, weight, UO. Patient's sister in law at bedside and greater than 30 minutes spent talking to the patient and her sister in law about findings, overall prognosis and management. -I will give her additional lasix 20 mg PO X 1 today and then she may be discharged. -Follow up with me in [facility] in 1 week. CMP, CBC, Mg, BNP in 1 week. Status: Acute Qualifiers: Heart failure chronicity: acute on chronic Qualified Code(s): I50.813 - Acute on chronic right heart failure (2) Acute kidney injury superimposed on chronic kidney disease: resolved Status: Acute (3) Atrial fibrillation: Permanent A. fib on metoprolol, Xarelto and amiodarone. -A. fib ablation offered to patient in past and was declined. Status: Acute Qualifiers: Atrial fibrillation type: unspecified Qualified Code(s): I48.91 - Unspecified atrial fibrillation (4) Pulmonary hypertension: Severe pHTN WHO group 2 -unfortunately PH directed therapy has not been very beneficial in this group. -Will consider doing RHC at a later date(if patient is willing). Status: Acute (5) CKD (chronic kidney disease) stage 4, GFR 15-29 ml/min: Status: Chronic (6) H/O tricuspid valve annuloplasty: Status: Acute (7) Status post mitral valve annuloplasty: Status: Acute (8) Diabetes: Status: Chronic Qualifiers: Chronic kidney disease stage: stage 4 (severe) Diabetes mellitus complication detail: with chronic kidney disease Diabetes mellitus complication status: with kidney complications Diabetes mellitus terminal carman insulin use: with care home use Diabetes mellitus type: type 2 Qualified Code(s): E11.22 - Type 2 diabetes mellitus with diabetic chronic kidney disease; N18.4 - Chronic kidney disease, stage 4 (severe); Z79.4 - intermediate (current) use of insulin Additional A&P Information HYperkalemia: resolved Hypotension: May use Midodrine for now and increase to 2.5 mg TID if needed Hyponatremia: currently on salt tabs, OK to use in short run. However, eventualy would lead to more fluid retention and will require close monitoring Depression Anemia of ID and CKD Thrombocytopenia Generalized weakness and Deconditioning Depression Thank you for allowing me to participate in patient's care. Please feel free to call with questions or concerns. Attestations Medical Necessity Statement*: Stable to be discharged to DC. Coding Level of Care Code Acute Manager Pool for Braeden Kuhn Diagnoses Right heart failure I50.813 Heart failure chronicity: acute on chronic Acute kidney injury superimposed on chronic kidney disease N17.9; N18.9 Atrial fibrillation I48.91 Atrial fibrillation type: unspecified Pulmonary hypertension I27.20 CKD (chronic kidney disease) stage 4, GFR 15-29 ml/min N18.4 H/O tricuspid valve annuloplasty Z98.890 Status post mitral valve annuloplasty Z98.890 Diabetes E11.22; N18.4; Z79.4 Chronic kidney disease stage: stage 4 (severe) Diabetes mellitus complication detail: with chronic kidney disease Diabetes mellitus complication status: with kidney complications Diabetes mellitus terminal carman insulin use: with terminal carman use Diabetes mellitus type: type 2
--- NOTE | 2020-11-15 13:16 | P.PN_ITS ---
Subjective Subjective: Interval history: No new issues. Awaiting transfer to rehab Medications: Reviewed: Yes Vitals/I&O/Wt Last Vital Signs Temp 96.7 F L 11/15/20 10:40 Pulse 82 11/15/20 10:40 Resp 36 H 11/15/20 10:40 BP 112/67 11/15/20 10:40 Pulse Ox 98 11/15/20 10:40 11/14/20 11/15/20 11/15/20 22:59 06:59 14:59 Intake Total 240 / 710 250 / 960 120 / 120 Output Total 200 / 200 125 / 325 Balance 40 / 510 125 / 635 120 / 120 Weight last 48 hrs Weight 103.419 kg Weight 102.512 kg Physical Exam Urinary Catheter Management^: Slater: Cath Placed During This Visit: yes Reason for Continuing Indwelling Catheter: Accurate Measurement of Urinary Output in Critically Ill Patients Urinary Catheter Date of Insertion: 10/28/20 Urinary Catheter Time of Insertion: 12:10 Data : 11/15/20 03:48 11/15/20 03:48 A&P Additional A&P Information Impression: 1. SANDY/CKD 2. mild hyperkalemia, hyponatremia - improved 3. Cor pulmonale 4. Anemia, iron deficient, received IV iron 5. Mild metabolic acidosis improved on oral sodium bicarbonate Recommend: Continue NaCl tablets, oral furosemide. low potassium diet, sodium bicarbonate. Attestations Medical Necessity Statement*: per primary service Time Spent in Patient Care: less than 15 minutes Coding Level of Care Code Acute Pathology Secretary/Transcriptionist for Braeden Kuhn
[2020-11-15] MEDS: FUROsemide 20 mg Tablet PO (13:20)
--- NOTE | 2020-11-15 15:54 | PC.NURSE ---
Discharge planning notified as asked to call for transport to senior care. Instructions given by this nurse patient would need stretcher transportation with no o2 needs. Upon arrival of transportation services a wheel chair transport was set up. This nurse had concerns with patient going by wheel chair due to spacial equipment needed to transfer patient from sitting to standing position. Enrike from case management and Diana notified of issues. Dr bains also notified of events no further instructions at this time [facility] transport services notified by Enrike please see ss note for details.
[2020-11-15 16:30] VITALS: BP 104/63; PULSE 86; RESP 25; O2SAT 95
--- NOTE | 2020-11-15 16:31 | PC.NURSE ---
patient discharge to [facility] at this time via transport services and stretcher patient alert oriented and in stable condition report called to [facility] prior ro patient dismissal IV discontinued cath intact min bleeding noted dressing placed patient tolerated well. Sister in law notified of patients departure all belongings and appropriate paperwork sent with patient.
== END 2020-11-15 16:33 | disposition skilled nursing facility (03) | DRG 314 ==
LOC: ER 13:38 → CSU 14:35 → ICU 10-29 06:48 → CSU 11-03 18:23
PROVIDERS: Internal Medicine; Internal Medicine Nephrology; Student in an Organized Health Care Education/Training Program; Admitting Provider Family Medicine; Emergency Provider Family Medicine; PCP Family Medicine; Visit Provider Family Medicine
DX: I95.9 Hypotension, unspecified (principal); I50.23 Acute on chronic systolic (congestive) heart failure; I87.1 Compression of vein; N17.9 Acute kidney failure, unspecified; E87.2 Acidosis; I13.0 Hypertensive heart and chronic kidney disease with heart failure and stage 1 through stage 4 chronic kidney disease, or unspecified chronic kidney disease; I31.3 Pericardial effusion (noninflammatory); E87.1 Hypo-osmolality and hyponatremia; N18.4 Chronic kidney disease, stage 4 (severe); I48.21 Permanent atrial fibrillation; Z68.41 Body mass index [BMI] 40.0-44.9, adult; Z66 Do not resuscitate; I50.813 Acute on chronic right heart failure; E87.6 Hypokalemia; Z79.4 Long term (current) use of insulin; E11.22 Type 2 diabetes mellitus with diabetic chronic kidney disease; R53.1 Weakness; F32.9 Major depressive disorder, single episode, unspecified; Z79.01 Long term (current) use of anticoagulants; Z95.3 Presence of xenogenic heart valve; Z95.0 Presence of cardiac pacemaker; I35.0 Nonrheumatic aortic (valve) stenosis; I05.0 Rheumatic mitral stenosis; E87.5 Hyperkalemia; D63.1 Anemia in chronic kidney disease; D69.6 Thrombocytopenia, unspecified; E66.01 Morbid (severe) obesity due to excess calories; I25.10 Atherosclerotic heart disease of native coronary artery without angina pectoris; Z95.1 Presence of aortocoronary bypass graft; Z86.711 Personal history of pulmonary embolism; Z20.828 Contact with and (suspected) exposure to other viral communicable diseases
CPT/HCPCS: 12345; 36415; 36416; 51702; 71045; 74176; 76770; 80048; 80053; 80069; 81001; 81003; 82009; 82533; 82550; 82570; 82607; 82728; 82746; 82962; 83540; 83550; 83605; 83735; 83880; 84100; 84145; 84300; 84439; 84443; 84481; 84540; 85007; 85025; 85610; 87040; 87205; 87426; 92526; 92610; 93005; 93306; 96372; 96375; 97110; 97116; 97161; 97166; 97530; 97535; 99283; J0696; J1644; J1756; J1815; J1940; J2270; J2543; J3480; J3490; J7030; P9041; Q3014

== ENCOUNTER 2020-11-29 09:35 | Inpatient (IN) | payer MEDICARE, MEDICAID, SELFPAY ==
[2020-11-29] VITALS (9 sets, daily range): BP systolic 95–108; BP diastolic 60–77; PULSE 85–120; RESP 14–20; TEMP 36.2–36.4; O2SAT 94–99; BMI 39.9
--- NOTE | 2020-11-29 09:55 | XR_ITS ---
WS: [id number] Exam: XR chest 1V portable [id number] Date/Time of Exam: 11/29/2020 9:55 AM Reason For Exam: dyspnea/cough Comparison 10/28/2020. Right perihilar and right middle lobe infiltrate noted suspicious for pneumonia. Left lung is clear. Chronic interstitial changes noted bilaterally. Heart size is top limits normal. Signs of previous ca rdiac valve replacement and median sternotomy. A permanent cardiac pacer superimposes the left chest. Trace right pleural effusion. XR/XR chest 1V portable [id number] IMPRESSION: 1. Probable right perihilar and right middle lobe infiltrate with atelectasis. 2. Superimposed interstitial changes in both lungs. 3. Trace right basal pleural effusion.
--- NOTE | 2020-11-29 09:56 | ECG_ITS ---
[facility] Test Date: 2020-11-29 Pat Name: Lizzie Pro Department: Room: Gender: Female Composite Laminator: : 1955 Requested By: Jr Magaña Order Number: [id number] Kevyn MD: Kehinde Jones M.D. Measurements Intervals [place] Rate: 103 P: [place]: QRS: 139 QRSD: 112 T: 7 QT: 357 QTc: 467 Interpretive Statements ATRIAL FIBRILLATION WITH RAPID VENTRICULAR RESPONSE LOW QRS VOLTAGE [QRS DEFLECTION < 0.5/1.0 mV IN LIMB/CHEST LEADS] RIGHT BUNDLE BRANCH BLOCK [120+ ms QRS DURATION, UPRIGHT V1, 40+ ms S IN I/aVL/V4/V5/V6] SEPTAL MYOCARDIAL INFARCTION , OF INDETERMINATE AGE [40+ ms Q WAVE IN V1/V2] LATERAL MYOCARDIAL INFARCTION , PROBABLY OLD [40+ ms Q WAVE AND/OR ST/T ABNORMALITY IN I/aVL/V5/V6] Compared to ECG 11/29/2020 10:05:49 No significant changes Electronically Signed On 11-29-2020 23:48:14 [employer] DIRECTOR by Kehinde Jones M.D. [email or web address]
--- NOTE | 2020-11-29 09:56 | ED_ITS ---
HPI - General Adult General: Chief complaint: General Medical Stated complaint: EDEMA, ABN LABS Time Seen by Provider: 11/29/20 09:36 History of Present Illness: HPI narrative: 65-year-old female who presented to the emergency room via EMS. She was hospitalized at the end of last month through the 15th of this month and then [facility]. She has severe chronic kidney disease as well as congestive heart failure. She was not able to manage at home and was discharged to the [facility]. She had previously been on Xarelto Xarelto was stopped. She has a history of diabetes mellitus as well. Today she presents complaining of shortness of breath generalized weaknessPeripheral edema extending to the level of the chest involving theHypotension and severe both the arms and the legs. Her left wrist especially is exquisitely tender and is red in appearance. IV sticks prior to arrival at the hospital by EMS were unsuccessful and are currently leaking serous fluid from her arms. She reports severe orthopnea which is not new for her. She denies any chest pain at this time. 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 Onset (ago): day(s) Associated symptoms: Reports dyspnea, short of breath and weakness; Deny chest pain, confusion, cough, diaphoresis, decreased appetite, fevers/chills, headache(s), malaise, nausea, rash, palpitations, seizures, syncope or vomiting Review of Systems Const: Denies: malaise or diaphoresis ENMT: Denies: throat pain, ear or mastoid pain, nasal discharge or nasal congestion Card: Denies: chest pain, palpitations or syncope Resp: Reports: dyspnea GI: Denies: nausea or vomiting : Denies: flank pain Skin/Breast: Denies: rash Neuro: Denies: headache(s) or confusion PFS ED PFSH: Medical History Anemia, chronic disease Atrial fibrillation CHF (congestive heart failure) CKD (chronic kidney disease) stage 4, GFR 15-29 ml/min Coronary artery disease Diabetes HTN (hypertension) Morbid obesity Pacemaker Surgical History H/O tricuspid valve annuloplasty Hx of CABG S/P cholecystectomy S/P left atrial appendage ligation S/P Maze operation for atrial fibrillation Status post mitral valve annuloplasty Family History Other CAD (coronary artery disease) Diabetes Social History Smoking and tobacco status: never smoked Alcohol intake: never Lives independently: Yes Marital status: Single Physical Exam Const: COMMON NORMALS: no acute distress GENERAL APPEARANCE: cooperative and comfortable ORIENTATION/CONSCIOUSNESS: Yes awake, Yes oriented to person, Yes oriented to place and Yes oriented to time HENMT: COMMON NORMALS: normocephalic, atraumatic and hearing grossly normal bilaterally HEAD & SCALP: normocephalic and atraumatic Neck/C-Spine: COMMON NORMALS: no JVD Resp: COMMON NORMALS: normal respiratory effort, No retractions, No use of accessory muscles and clear to auscultation bilaterally AUSCULTATION: clear to auscultation bilaterally Cardio: COMMON NORMALS: no JVD, regular rate, regular rhythm and No murmurs present (Cardio) RATE: regular rate RHYTHM: regular rhythm GI: COMMON NORMALS: Soft to palpation and No hepatosplenomegaly present AUSCULTATION: Yes normoactive bowel sounds PALPATION: Yes Soft to palpation, No Tenderness to palpation present (GI), No Guarding due to palpation present (GI) and Yes No hepatosplenomegaly present Extremity: NARRATIVE EXTREMITY EXAM: 3+ edema of the upper and lower extremities. There is redness and erythema with some induration and exquisite tenderness to the touch on the flexor crease of the left wrist. Palpable anasarca to the level of the upper abdomen. Neuro: SENSORIUM/ORIENTATION: Yes oriented to person, Yes oriented to place and Yes oriented to time Course Vital Signs: Vital signs: Vital Signs Temperature 97.7 F 11/30/20 11:32 Pulse Rate 106 H 11/30/20 11:32 Respiratory Rate 18 11/30/20 11:32 Blood Pressure 134/82 11/30/20 08:00 Pulse Oximetry 96 11/30/20 11:32 MDM - General Adult MDM Narrative: Medical decision making narrative: Patient has significant fluid buildup this pulmonary hypertension CHF chronic kidney disease we will go ahead and admit her discussed with Dr. Young he will see the patient in the ER. Initial orders written. Lab Data: Labs: Lab Results 11/29/20 11/29/20 11/29/20 Range/Units 10:00 10:00 10:00 WBC 10.2 H (4.0-10.0) 10^3/ uL RBC 4.99 (4.1-5.3) 10^6/u L Hgb 12.3 (11.5-15.3) g/dL Hct 41.5 (37.0-47.0) % MCV 83.2 (81-99) fL MCH 24.6 L (28.0-34.0) pg MCHC 29.6 L (30.0-36.0) g/dL RDW 24.7 H (12.1-15.1) % Plt Count 61 L (130-400) 10^3/c mm MPV Not Reportable Neut % (Auto) 79.1 % Lymph % (Auto) 9.7 % [place] % (Auto) 8.3 % Eos % (Auto) 0.5 % Baso % (Auto) 0.7 % Neut # (Auto) 8.04 H (1.8-7.7) 10^3/u L Lymph # (Auto) 1.0 (0.8-4.8) 10^3/u L [place] # (Auto) 0.8 (0.2-0.9) 10^3/u L Eos # (Auto) 0.1 (0.0-0.8) 10^3/u L Baso # (Auto) 0.1 (0.0-0.1) 10^3/u L Nucleated RBC % (a uto) 0 % Nucleated RBCs # 0.0 /100WBC ESR (0-15) mm/hr Sodium 135 L (136-145) mmol/L Potassium 4.7 (3.5-5.1) mmol/L Chloride 103 (98-107) mmol/L Carbon Dioxide 22 (22-29) mmol/L Anion Gap 14.7 (5-19) BUN 35 H (8-23) mg/dL Creatinine 1.7 H (0.5-0.9) mg/dL GFR Calculation 30.2 L (90-130) mL/min Glucose 98 (65-115) mg/dL Calculated Osmolal ity 288 (285-295) mOsm/k g Lactate (0.5-2.2) mmol/L Calcium 8.6 (8.5-10.5) mg/dL Total Bilirubin 0.8 (0.15-1.2) mg/dL AST 11 (0-32) U/L ALT 6 (0-33) U/L Alkaline Phosphata se 120 H (35-105) IU/L Creatine Kinase 20 L (26-192) U/L Troponin T Baselin e 83 H (0-10) ng/L Troponin T 120 Min [place] (0-10) ng/L Delta Troponin T (0-10) ABS# Troponin T Hi Sens 6Hr (0-10) ng/L Troponin T Hi Sens 6Hr Delta (0-12) ng/L C-Reactive Protein (0.0-4.9) mg/L NT-Pro-B Natriuret Pep 8864 H (0-125) pg/mL Total Protein 5.9 L (6.6-8.7) g/dL Albumin 3.0 L (3.5-5.2) g/dL Globulin 2.9 (1.3-4.6) g/dL Lipase 105 H (13-60) U/L Procalcitonin (0-0.5) ng/mL TSH (0.27-4.20) uIU/ mL Urine Color (Yellow) Urine Appearance (CLEAR) Urine pH (5-7) Ur Specific Gravit y (1.005-1.030) Urine Protein (Negative) Urine Glucose (UA) (Normal) Urine Ketones (Negative) Urine Blood (Negative) Urine Nitrate (Negative) Urine Bilirubin (Negative) Urine Urobilinogen (Negative) mg/dL Ur Leukocyte Nia ase (Negative) Urine RBC (0-2) /hpf Urine WBC (0-5) /hpf Ur Squamous Epith Cells (0-5) /hpf Calcium Oxalate Cr ystal /hpf Amorphous Sediment Urine Bacteria (NONE) /hpf Urine Yeast /hpf 11/29/20 11/29/20 11/29/20 Range/Units 10:00 10:00 10:00 WBC (4.0-10.0) 10^3/ uL RBC (4.1-5.3) 10^6/u L Hgb (11.5-15.3) g/dL Hct (37.0-47.0) % MCV (81-99) fL MCH (28.0-34.0) pg MCHC (30.0-36.0) g/dL RDW (12.1-15.1) % Plt Count (130-400) 10^3/c mm MPV Neut % (Auto) % Lymph % (Auto) % [place] % (Auto) % Eos % (Auto) % Baso % (Auto) % Neut # (Auto) (1.8-7.7) 10^3/u L Lymph # (Auto) (0.8-4.8) 10^3/u L [place] # (Auto) (0.2-0.9) 10^3/u L Eos # (Auto) (0.0-0.8) 10^3/u L Baso # (Auto) (0.0-0.1) 10^3/u L Nucleated RBC % (a uto) % Nucleated RBCs # /100WBC ESR 10 (0-15) mm/hr Sodium (136-145) mmol/L Potassium (3.5-5.1) mmol/L Chloride (98-107) mmol/L Carbon Dioxide (22-29) mmol/L Anion Gap (5-19) BUN (8-23) mg/dL Creatinine (0.5-0.9) mg/dL GFR Calculation (90-130) mL/min Glucose (65-115) mg/dL Calculated Osmolal ity (285-295) mOsm/k g Lactate (0.5-2.2) mmol/L Calcium (8.5-10.5) mg/dL Total Bilirubin (0.15-1.2) mg/dL AST (0-32) U/L ALT (0-33) U/L Alkaline Phosphata se (35-105) IU/L Creatine Kinase (26-192) U/L Troponin T Baselin e (0-10) ng/L Troponin T 120 Min [place] (0-10) ng/L Delta Troponin T (0-10) ABS# Troponin T Hi Sens 6Hr (0-10) ng/L Troponin T Hi Sens 6Hr Delta (0-12) ng/L C-Reactive Protein (0.0-4.9) mg/L NT-Pro-B Natriuret Pep (0-125) pg/mL Total Protein (6.6-8.7) g/dL Albumin (3.5-5.2) g/dL Globulin (1.3-4.6) g/dL Lipase (13-60) U/L Procalcitonin (0-0.5) ng/mL TSH 9.20 H (0.27-4.20) uIU/ mL Urine Color Straw (Yellow) Urine Appearance Hazy A (CLEAR) Urine pH 5 (5-7) Ur Specific Gravit y 1.020 (1.005-1.030) Urine Protein Trace (Negative) Urine Glucose (UA) Norm (Normal) Urine Ketones 1+ H (Negative) Urine Blood 3+ H (Negative) Urine Nitrate Positive H (Negative) Urine Bilirubin Neg (Negative) Urine Urobilinogen Norm (Negative) mg/dL Ur Leukocyte Nia ase 1+ H (Negative) Urine RBC >100 H (0-2) /hpf Urine WBC 25-40 H (0-5) /hpf Ur Squamous Epith Cells 0-4 H (0-5) /hpf Calcium Oxalate Cr ystal 5-10 H /hpf Amorphous Sediment Not Reportable Urine Bacteria 3+ H (NONE) /hpf Urine Yeast 2+ H /hpf 11/29/20 11/29/20 11/29/20 Range/Units 10:00 14:00 14:00 WBC (4.0-10.0) 10^3/ uL RBC (4.1-5.3) 10^6/u L Hgb (11.5-15.3) g/dL Hct (37.0-47.0) % MCV (81-99) fL MCH (28.0-34.0) pg MCHC (30.0-36.0) g/dL RDW (12.1-15.1) % Plt Count (130-400) 10^3/c mm MPV Neut % (Auto) % Lymph % (Auto) % [place] % (Auto) % Eos % (Auto) % Baso % (Auto) % Neut # (Auto) (1.8-7.7) 10^3/u L Lymph # (Auto) (0.8-4.8) 10^3/u L [place] # (Auto) (0.2-0.9) 10^3/u L Eos # (Auto) (0.0-0.8) 10^3/u L Baso # (Auto) (0.0-0.1) 10^3/u L Nucleated RBC % (a uto) % Nucleated RBCs # /100WBC ESR (0-15) mm/hr Sodium (136-145) mmol/L Potassium (3.5-5.1) mmol/L Chloride (98-107) mmol/L Carbon Dioxide (22-29) mmol/L Anion Gap (5-19) BUN (8-23) mg/dL Creatinine (0.5-0.9) mg/dL GFR Calculation (90-130) mL/min Glucose (65-115) mg/dL Calculated Osmolal ity (285-295) mOsm/k g Lactate 1.6 (0.5-2.2) mmol/L Calcium (8.5-10.5) mg/dL Total Bilirubin (0.15-1.2) mg/dL AST (0-32) U/L ALT (0-33) U/L Alkaline Phosphata se (35-105) IU/L Creatine Kinase (26-192) U/L Troponin T Baselin e (0-10) ng/L Troponin T 120 Min [place] 75.95 H (0-10) ng/L Delta Troponin T -7.05 L (0-10) ABS# Troponin T Hi Sens 6Hr (0-10) ng/L Troponin T Hi Sens 6Hr Delta (0-12) ng/L C-Reactive Protein 17.1 H (0.0-4.9) mg/L NT-Pro-B Natriuret Pep (0-125) pg/mL Total Protein (6.6-8.7) g/dL Albumin (3.5-5.2) g/dL Globulin (1.3-4.6) g/dL Lipase (13-60) U/L Procalcitonin 0.24 (0-0.5) ng/mL TSH (0.27-4.20) uIU/ mL Urine Color (Yellow) Urine Appearance (CLEAR) Urine pH (5-7) Ur Specific Gravit y (1.005-1.030) Urine Protein (Negative) Urine Glucose (UA) (Normal) Urine Ketones (Negative) Urine Blood (Negative) Urine Nitrate (Negative) Urine Bilirubin (Negative) Urine Urobilinogen (Negative) mg/dL Ur Leukocyte Nia ase (Negative) Urine RBC (0-2) /hpf Urine WBC (0-5) /hpf Ur Squamous Epith Cells (0-5) /hpf Calcium Oxalate Cr ystal /hpf Amorphous Sediment Urine Bacteria (NONE) /hpf Urine Yeast /hpf 11/29/20 Range/Units 15:26 WBC (4.0-10.0) 10^3/ uL RBC (4.1-5.3) 10^6/u L Hgb (11.5-15.3) g/dL Hct (37.0-47.0) % MCV (81-99) fL MCH (28.0-34.0) pg MCHC (30.0-36.0) g/dL RDW (12.1-15.1) % Plt Count (130-400) 10^3/c mm MPV Neut % (Auto) % Lymph % (Auto) % [place] % (Auto) % Eos % (Auto) % Baso % (Auto) % Neut # (Auto) (1.8-7.7) 10^3/u L Lymph # (Auto) (0.8-4.8) 10^3/u L [place] # (Auto) (0.2-0.9) 10^3/u L Eos # (Auto) (0.0-0.8) 10^3/u L Baso # (Auto) (0.0-0.1) 10^3/u L Nucleated RBC % (a uto) % Nucleated RBCs # /100WBC ESR (0-15) mm/hr Sodium (136-145) mmol/L Potassium (3.5-5.1) mmol/L Chloride (98-107) mmol/L Carbon Dioxide (22-29) mmol/L Anion Gap (5-19) BUN (8-23) mg/dL Creatinine (0.5-0.9) mg/dL GFR Calculation (90-130) mL/min Glucose (65-115) mg/dL Calculated Osmolal ity (285-295) mOsm/k g Lactate (0.5-2.2) mmol/L Calcium (8.5-10.5) mg/dL Total Bilirubin (0.15-1.2) mg/dL AST (0-32) U/L ALT (0-33) U/L Alkaline Phosphata se (35-105) IU/L Creatine Kinase (26-192) U/L Troponin T Baselin e (0-10) ng/L Troponin T 120 Min [place] (0-10) ng/L Delta Troponin T (0-10) ABS# Troponin T Hi Sens 6Hr 76.46 H (0-10) ng/L Troponin T Hi Sens 6Hr Delta -6.54 L (0-12) ng/L C-Reactive Protein (0.0-4.9) mg/L NT-Pro-B Natriuret Pep (0-125) pg/mL Total Protein (6.6-8.7) g/dL Albumin (3.5-5.2) g/dL Globulin (1.3-4.6) g/dL Lipase (13-60) U/L Procalcitonin (0-0.5) ng/mL TSH (0.27-4.20) uIU/ mL Urine Color (Yellow) Urine Appearance (CLEAR) Urine pH (5-7) Ur Specific Gravit y (1.005-1.030) Urine Protein (Negative) Urine Glucose (UA) (Normal) Urine Ketones (Negative) Urine Blood (Negative) Urine Nitrate (Negative) Urine Bilirubin (Negative) Urine Urobilinogen (Negative) mg/dL Ur Leukocyte Nia ase (Negative) Urine RBC (0-2) /hpf Urine WBC (0-5) /hpf Ur Squamous Epith Cells (0-5) /hpf Calcium Oxalate Cr ystal /hpf Amorphous Sediment Urine Bacteria (NONE) /hpf Urine Yeast /hpf Discharge Plan Discharge Patient Disposition: Admitted As Inpatient Admit Provider: Praveen Perry Clinical Impression: CHF (congestive heart failure), Diabetes, Atrial fibrillation, CKD (chronic kidney disease) stage 4, GFR 15-29 ml/min, Hyponatremia, Pulmonary hypertension Condition: Stable Coding Level of Care Code ED [employer] Specialist Supervisor for Chg Fwd Exam Detailed
[2020-11-29 10:23] LABS: Basophils # 0.1 10^3/uL (0.0-0.1); Basophils % 0.7 %; Eosinophils # 0.1 10^3/uL (0.0-0.8); Eosinophils % 0.5 %; Hematocrit 41.5 % (37.0-47.0); Hemoglobin 12.3 g/dL (11.5-15.3); Lymphocytes % 9.7 %; Mean Corpuscular HGB Conc 29.6 g/dL (30.0-36.0); Mean Corpuscular Hemoglobin 24.6 pg (28.0-34.0); Mean Corpuscular Volume 83.2 fL (81-99); Monocytes # 0.8 10^3/uL (0.2-0.9); Monocytes % 8.3 %; Neutrophils # 8.04 10^3/uL (1.8-7.7); Neutrophils % 79.1 %; Nucleated Red Blood Cells % 0 %; Platelet Count 61 10^3/cmm (130-400); Red Blood Count 4.99 10^6/uL (4.1-5.3); Red Cell Distribution Width 24.7 % (12.1-15.1); White Blood Count 10.2 10^3/uL (4.0-10.0)
[2020-11-29 10:43] LABS: Troponin(5th) Baseline 83 ng/L (0-10)
[2020-11-29] MEDS: levofloxacin-dextrose 5 % 500 MG/100 ML PREMIX 100 MG IV (10:48)
[2020-11-29 10:53] LABS: Alanine Aminotransferase 6 U/L (0-33); Alkaline Phosphatase 120 IU/L (35-105); Anion Gap 14.7 (5-19); Aspartate Amino Transferase 11 U/L (0-32); Blood Urea Nitrogen 35 mg/dL (8-23); Calcium 8.6 mg/dL (8.5-10.5); Carbon Dioxide 22 mmol/L (22-29); Chloride 103 mmol/L (98-107); Creatine Phosphokinase 20 U/L (26-192); Globulin 2.9 g/dL (1.3-4.6); Glomerular Filtration Rate 30.2 mL/min (90-130); Glucose 98 mg/dL (65-115); Lipase 105 U/L (13-60); NT Pro B Type Natriuretic Pept 8864 pg/mL (0-125); Osmolality Calculated 288 mOsm/kg (285-295); Potassium 4.7 mmol/L (3.5-5.1); Sodium 135 mmol/L (136-145); Total Bilirubin 0.8 mg/dL (0.15-1.2); Total Protein 5.9 g/dL (6.6-8.7)
[2020-11-29 10:59] LABS: Slide Review Slide Review Perform
[2020-11-29 11:10] LABS: Blood Urine 3+ (Negative); Glucose Urine UA Norm (Normal); Ketones Urine 1+ (Negative); Nitrate Urine Positive (Negative); Protein Urine Trace (Negative); Urine Appearance Hazy (CLEAR); Urine Color Straw (Yellow); pH Urine 5 (5-7)
[2020-11-29 11:11] LABS: Add Urine Microscopic? YES; Bacteria Urine 3+ /hpf; Bilirubin Urine Neg (Negative); Leukocyte Esterase Urine 1+ (Negative); Squamous Epithelial Cell Urine 0-4 /hpf (0-5); Urobilinogen Urine Norm (Negative)
[2020-11-29 11:12] LABS: Add Urine Culture? Yes; RBC Urine >100 /hpf (0-2); WBC Urine 25-40 /hpf (0-5)
--- NOTE | 2020-11-29 11:56 | ECG_ITS ---
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 Measurements Intervals [place] Rate: 112 P: [place]: QRS: 149 QRSD: 112 T: 0 QT: 338 QTc: 463 Interpretive Statements ATRIAL FIBRILLATION WITH RAPID VENTRICULAR RESPONSE LOW QRS VOLTAGE [QRS DEFLECTION < 0.5/1.0 mV IN LIMB/CHEST LEADS] RIGHT BUNDLE BRANCH BLOCK [120+ ms QRS DURATION, UPRIGHT V1, 40+ ms S IN I/aVL/V4/V5/V6] SEPTAL MYOCARDIAL INFARCTION , OF INDETERMINATE AGE [40+ ms Q WAVE IN V1/V2] LATERAL MYOCARDIAL INFARCTION , PROBABLY OLD [40+ ms Q WAVE AND/OR ST/T ABNORMALITY IN I/aVL/V5/V6] Compared to ECG 10/29/2020 02:10:09 Low QRS voltage now present Myocardial infarct finding now present Aberrant conduction of supraventricular beat(s) no longer present Ventricular premature complex(es) no longer present Right-axis deviation no longer present Electronically Signed On 11-30-2020 0:01:58 WORKERS' COMPENSATION HEARINGS OFFICER by Kehinde Jones M.D. [email or web address]
[2020-11-29] MEDS: aztreonam 2,000 MG in sodium chloride 0.9% (plus) 100 ML 200 MG IV (12:00)
--- NOTE | 2020-11-29 12:47 | PM.HP ---
Providers/Chief Complaint Primary Care Provider: Heather Núñez MD Chief Complaint: EDEMA, ABN LABS History of Present Illness Lizzie Pro is a 65 year old female diastolic CHF, bilateral lower extremity edema, insulin-dependent type 2 diabetes, hypertension, atrial fibrillation on Xarelto status post Maze procedure and ANGELO ligation history of mitral valve repair, tricuspid valve repair, chronic anemia, chronic kidney disease stage IV, CAD, hypertension, morbid obesity, chronic indwelling Slater, has a dual-chamber pacemaker, who is had multiple hospital admissions over the last year for bilateral lower extremity edema, CHF exacerbations, urinary tract infections who presents to [facility] due to complaints of diffuse anasarca, and dark-colored urine. I spoke to the correction, currently is at [facility], they advised the patient recently had a bout of hyperkalemia, her potassium supplementation was discontinued, spironolactone was discontinued, she was continued on Lasix, many medications were held, as result she has gained roughly 10 pounds in the last 48 hours, has diffuse anasarca, she is actively weeping from her legs. In addition, the performed a blood draw early this morning, and her left wrist is swollen, red, they are worried about cellulitis In the emergency room, patient is alert to person, place, not to time, her only complaint right now is that she is cold, she has chills, denies chest pain, denies shortness of breath, denies lightheadedness, denies any dizziness, she does have diffuse anasarca, bilateral extremity edema, she has a chronic indwelling Slater, urine is cloudy quite dark and murky appearing Review of Systems Const: Denies: fever(s), chills, fatigue or malaise Eyes: Denies: change in vision or blurry vision ENMT: Denies: nasal congestion Resp: Denies: dyspnea, productive cough, non-productive cough or wheezing GI: Denies: abdominal pain, nausea, vomiting, hematemesis, diarrhea, constipation, hematochezia or melena : Denies: flank pain, dysuria or urinary frequency Musc: Denies: neck pain or back pain Skin/Breast: Denies: rash Neuro: Denies: headache(s), dizziness or vertigo Psych: Denies: anxiety or depression Endo: Denies: polyuria or polydipsia Medications/Allergies Home Medications Medication Instructions Recorded Confirmed Last Taken Type Refresh Tears See Rx Instructions .ROUTE .COMPLEX 05/05/20 11/29/20 Unknown History Systane (PF) See Rx Instructions .ROUTE .COMPLEX 05/05/20 11/29/20 Unknown History Benadryl 2 cap PO PRN 10/28/20 11/29/20 Unknown History hydroxyzine pamoate 25 mg PO TID PRN 10/28/20 11/29/20 11/28/20 History nystatin 1 applic TOPICAL TID PRN 10/28/20 11/29/20 Unknown History furosemide 40 mg PO DAILY@0800 30 Days #30 tab 11/15/20 11/29/20 11/28/20 Rx insulin aspart U-100 [Novolog See Rx Instructions .ROUTE 11/15/20 11/29/20 11/29/20 Rx U-100 Insulin aspart] .COMPLEX #10 ml Levemir FlexTouch U-100 Insuln 10 unit SUBCUT DAILY@0600 11/29/20 11/29/20 11/29/20 History Pacerone 200 mg PO DAILY@0800 11/29/20 11/29/20 11/28/20 History Xarelto 15 mg PO DAILY@0800 11/29/20 11/29/20 11/28/20 History bisacodyl 10 mg MN DAILY PRN 11/29/20 11/29/20 Unknown History escitalopram oxalate 30 mg PO DAILY@0800 11/29/20 11/29/20 11/28/20 History honey [MediHoney (honey)] 1 applic TOPICAL DAILY 11/29/20 11/29/20 11/28/20 History magnesium hydroxide [Milk of 400 mg PO DAILY PRN 11/29/20 11/29/20 Unknown History Magnesia] metoprolol tartrate 25 mg PO BID@0811/29/20 11/29/20 11/28/20 History midodrine 2.5 mg PO BID@08,199911/29/20 11/29/20 11/28/20 History pantoprazole 40 mg PO DAILY@0800 11/29/20 11/29/20 11/28/20 History polyethylene glycol 3350 [Miralax] 17 g PO DAILY PRN 11/29/20 11/29/20 Unknown History simvastatin 10 mg PO DAILY@199911/29/20 11/29/20 11/28/20 History sodium bicarbonate 650 mg PO BID@11/29/20 11/29/20 11/28/20 History sodium chloride 1 g PO TID@08,,11/29/20 11/29/20 11/28/20 History sodium phosphates [Enema 118 ml MN DAILY PRN 11/29/20 11/29/20 Unknown History Disposable] Allergies Allergy/AdvReac Type Severity Reaction Status Date / Time Penicillins Allergy Unknown Verified 05/05/20 08:39 PFSH Acute PFSH: Medical History Anemia, chronic disease Atrial fibrillation CHF (congestive heart failure) CKD (chronic kidney disease) stage 4, GFR 15-29 ml/min Coronary artery disease Diabetes HTN (hypertension) Morbid obesity Pacemaker Surgical History H/O tricuspid valve annuloplasty Hx of CABG S/P cholecystectomy S/P left atrial appendage ligation S/P Maze operation for atrial fibrillation Status post mitral valve annuloplasty Family History Other CAD (coronary artery disease) Diabetes Social History Smoking and tobacco status: never smoked Alcohol intake: never Lives independently: Yes Marital status: Single Vitals/I&O/Wt Last Vital Signs Temp 97.6 F 11/29/20 09:44 Pulse 107 H 11/29/20 11:40 Resp 16 11/29/20 11:40 BP 96/60 11/29/20 11:40 Pulse Ox 99 11/29/20 11:40 Weight last 48 hrs Weight 98.883 kg Physical Exam Const: COMMON NORMALS: no acute distress GENERAL APPEARANCE: cooperative and comfortable ORIENTATION/CONSCIOUSNESS: Yes awake, Yes oriented to person and Yes oriented to place; not oriented to time HENMT: COMMON NORMALS: normocephalic HEAD & SCALP: normocephalic Eye: COMMON NORMALS: Equal, round and reactive pupils present and EOMs intact bilaterally GENERAL EYE: appearance normal, both eyes and all related structures PUPIL: Yes Equal, round and reactive pupils present Neck/C-Spine: COMMON NORMALS: full ROM, no lymphadenopathy, no JVD and Thyroid normal THYROID: Thyroid normal Lymph: LYMPHATIC: no lymphadenopathy noted Resp: COMMON NORMALS: normal respiratory effort, No retractions, No use of accessory muscles and clear to auscultation bilaterally AUSCULTATION: clear to auscultation bilaterally Cardio: COMMON NORMALS: no JVD, regular rate, regular rhythm, S1 normal heart sound present, S2 normal heart sound present, No gallops present (Cardio), No clicks present (Cardio) and No murmurs present (Cardio) RATE: regular rate RHYTHM: regular rhythm HEART SOUNDS: S1 normal heart sound present and S2 normal heart sound present GI: COMMON NORMALS: Normal to inspection, nondistended, normoactive bowel sounds present, Soft to palpation, non-tender and No hepatosplenomegaly present PALPATION: Yes Soft to palpation and Yes No hepatosplenomegaly present Extremity: COMMON NORMALS: normal to inspection, full ROM and no pedal edema Neuro: COMMON NORMALS: CN's II-XII intact bilaterally, moves all extremities and no focal motor deficits OTHER: Follows commands, moves upper and lower extremities, no facial droop, no slurring of her speech, is fairly agitated when he asked her to do neurologic testing, as she is very cold, would like to be wrapped up back in the blankets Psych: COMMON NORMALS: mental status grossly normal, Normal thought process present and cooperative THOUGHT PROCESS: Normal thought process present Data : 11/29/20 10:00 11/29/20 10:00 Micro: Microbiology 11/29/20 10:00 Blood Culture - Preliminary Blood SPECIMEN COLLECTED A&P Assessment and plan (1) Anasarca: -Likely secondary to diastolic CHF, right-sided heart failure, pulmonary hypertension -has gained roughly 10 pounds in the last few days, weight on last admission was 83 kg, weight today is 98.8 kg -BNP 8864, creatinine 1.7, serum sodium 135 -Echocardiogram from October 30, 2020 shows: Small left ventricular cavity size. Normal left ventricular cavity size. Left ventricular ejection fraction is estimated at 55 %. Flattened septum in diastole consistent with right ventricle volume overload. 2-Severely increased right ventricular size. Severely decreased right ventricular systolic function. Moderate pulmonary hypertension, RVSP 65 mmHg. 3-Severely increased right atrial size. 4-Moderately increased left atrial size. 5-Severely thickened mitral valve. Severe mitral annular calcification. No mitral valve stenosis. Moderate to severe mitral valve regurgitation. 6-Severe aortic valve calcification. Moderate aortic valve stenosis, mean gradient, aortic valve is not well-visualized therefore cannot assess gradient on aortic valve area however appears to be moderately stenotic. 7-Structurally normal tricuspid valve without significant stenosis or regurgitation. Pulmonary artery systolic pressure is normal. 8-There is no pericardial effusion. 9-Right atrial pressure is around 20 mm of mercury. Plan: -Admit to cardiac stepdown unit -Fluid restrictions -Daily weights -Lasix 40 mg IV twice daily -Start spironolactone 12.5 mg daily to monitor serum potassiums -Monitor creatinine and urine output closely -On last admission patient had SANDY secondary to diuretics, hypoperfusion, has chronic hypotension, prerenal azotemia will start slow diuretic therapy and monitor her clinical response as she has CKD Status: Acute (2) Hyponatremia: Monitor sodium levels closely given diuresis Status: Acute (3) CKD (chronic kidney disease) stage 4, GFR 15-29 ml/min: Will monitor creatinine closely Status: Chronic (4) Pulmonary hypertension: Status: Acute (5) Right heart failure: Status: Acute Qualifiers: Heart failure chronicity: acute on chronic Qualified Code(s): I50.813 - Acute on chronic right heart failure (6) Pleural effusion: Status: Acute (7) Atrial fibrillation: Continue amiodarone Xarelto on hold given thrombocytopenia Status: Acute Qualifiers: Atrial fibrillation type: unspecified Qualified Code(s): I48.91 - Unspecified atrial fibrillation (8) Diabetes: Low-dose sliding scale Levemir 10 units in the morning Status: Chronic Qualifiers: Diabetes mellitus type: type 2 Diabetes mellitus correction insulin use: with terminal carman use Diabetes mellitus complication status: with kidney complications Diabetes mellitus complication detail: with chronic kidney disease Chronic kidney disease stage: stage 4 (severe) Qualified Code(s): E11.22 - Type 2 diabetes mellitus with diabetic chronic kidney disease; N18.4 - Chronic kidney disease, stage 4 (severe); Z79.4 - shelter (current) use of insulin (9) Diastolic CHF: Status: Acute (10) Pacemaker: Status: Acute (11) H/O tricuspid valve annuloplasty: Status: Acute (12) Status post mitral valve annuloplasty: Status: Acute (13) Urinary tract infection: -Start on Primaxin -Follow urine cultures, blood cultures -CT of the abdomen pelvis to rule out obstructive uropathy or pyelonephritis Status: Acute (14) Chronic hypotension: -Has chronic hypotension on midodrine, -Does have a UTI -We will obtain lactic acid CRP pro-Lenny -Continue midodrine for now Status: Acute (15) Cellulitis of left wrist: -Obtain x-ray of the left wrist, start on vancomycin Status: Acute (16) Thrombocytopenia: -Etiology unclear, but does have mild hepatic steatosis -Could be platelet clumping -For now hold Xarelto -Monitor for bleeding Status: Acute Additional A&P Information Has chronic hypotension, is on midodrine, likely related to right-sided heart failure Attestations Medical Necessity Statement*: Patient requires hospitalization, inpatient, greater than 2 midnights, for diffuse anasarca secondary to diastolic CHF exacerbation, right-sided heart failure, pulmonary hypertension, left wrist cellulitis, UTI Coding Level of Care Code Acute [employer] Operator for [facility] Fwd Diagnoses Anasarca R60.1 Hyponatremia E87.1 CKD (chronic kidney disease) stage 4, GFR 15-29 ml/min N18.4 Pulmonary hypertension I27.20 Right heart failure I50.813 Heart failure chronicity: acute on chronic Pleural effusion J90 Atrial fibrillation I48.91 Atrial fibrillation type: unspecified Diabetes E11.22; N18.4; Z79.4 Diabetes mellitus type: type 2 Diabetes mellitus terminal carman insulin use: with terminal carman use Diabetes mellitus complication status: with kidney complications Diabetes mellitus complication detail: with chronic kidney disease Chronic kidney disease stage: stage 4 (severe) Diastolic CHF I50.30 Pacemaker Z95.0 H/O tricuspid valve annuloplasty Z98.890 Status post mitral valve annuloplasty Z98.890 Urinary tract infection N39.0 Chronic hypotension I95.89 Cellulitis of left wrist L03.114 Thrombocytopenia D69.6
[2020-11-29 14:26] LABS: Lactate (Lactic Acid level) 1.6 mmol/L (0.5-2.2)
[2020-11-29 14:28] LABS: Troponin 5 2HR 75.95 ng/L (0-10)
[2020-11-29 14:30] LABS: Troponin 5 2HR Delta -7.05 ABS# (0-10)
[2020-11-29 15:52] LABS: Troponin 5 6HR 76.46 ng/L (0-10)
[2020-11-29 15:58] LABS: Troponin 5 6HR Delta -6.54 ng/L (0-12)
--- NOTE | 2020-11-29 17:04 | XR_ITS ---
WS: [id number] Exam: XR wrist LT 2V [id number] Date/Time of Exam: 11/29/2020 5:04 PM Reason For Exam: cellulitis No fracture or dislocation. Vascular calcifications about the wrist. Mild soft tissue edema. XR/XR wrist LT 2V [id number] IMPRESSION: 1. No fracture or bone destruction. 2. Soft tissue edema.
--- NOTE | 2020-11-29 17:04 | CTR_ITS ---
PROCEDURE INFORMATION: Exam: CT Abdomen And Pelvis Without Contrast Exam date and time: 11/29/2020 7:41 PM Age: 65 years old Clinical indication: Abdominal tenderness; Prior surgery; Surgery type: Gb; Additional info: Evaluate for obstructive uropathy and/or pyelonephritis TECHNIQUE: Imaging protocol: Computed tomography of the abdomen and pelvis without contrast. Radiation optimization: All CT scans at this facility use at least one of these dose optimization techniques: automated exposure control; mA and/or kV adjustment per patient size (includes targeted exams where dose is matched to clinical indication); or iterative reconstruction. COMPARISON: CT abdomen pelvis wo con [id number] 10/28/2020 11:19 AM RADIATION DOSE METRICS: Total DLP (mGy-cm): 1637.64 FINDINGS: Lungs: Compressive atelectasis at the right lung base. Passive congestion noted in the bilateral lung bases. Pleural space: Moderate-sized right pleural effusion. Small left pleural effusion. Small pericardial effusion. Liver: Liver demonstrates an irregular margin, suggesting hepatic cirrhosis. No focal liver lesions are demonstrated on this noncontrast study. Gallbladder and bile ducts: Gallbladder not visualized, suggesting prior cholecystectomy. No ductal dilation. Pancreas: The pancreas is normal in appearance. No pancreatic duct dilatation. Spleen: Unremarkable. No splenomegaly. Adrenal glands: Mild thickening of the adrenal glands. No mass. Kidneys and ureters: The kidneys are morphologically normal. No nephrolithiasis. No hydronephrosis. No ureteral calculi. No obstructive uropathy. Stomach and bowel: Diverticulosis of the colon; no acute diverticulitis. Appendix: No evidence of appendicitis. Intraperitoneal space: Moderate ascites in the abdomen and pelvis. Vasculature: The aorta is atherosclerotic. No aortic aneurysm. Lymph nodes: No enlarged lymph nodes. Urinary bladder: There is a Slater catheter in the urinary bladder. Reproductive: Unremarkable as visualized. Bones/joints: Degenerative lumbar spine changes. No acute osseous abnormality. Soft tissues: Small ventral abdominal wall hernia containing only fat, unchanged. Extensive subcutaneous edema throughout the abdomen and pelvis, suggesting anasarca. CT/CT kidney stone [id number] IMPRESSION: 1. Liver demonstrates an irregular margin, suggesting hepatic cirrhosis. No focal liver lesions are demonstrated on this noncontrast study. 2. The kidneys are morphologically normal. No nephrolithiasis. No hydronephrosis. No ureteral calculi. No obstructive uropathy. 3. Diverticulosis of the colon; no acute diverticulitis. 4. Extensive subcutaneous edema throughout the abdomen and pelvis, suggesting anasarca. 5. Moderate ascites in the abdomen and pelvis. 6. Moderate-sized right pleural effusion. Small left pleural effusion. Small pericardial effusion. This is new when compared to the previous study. 7. Compressive atelectasis at the right lung base. Passive congestion noted in the bilateral lung bases. Radiation Dose CTDIVOL = (mGy): DLP = 1637.64 (mGy-cm)
[2020-11-29 17:47] LABS: Glucose Point of Care 83 mg/dL (70-110)
[2020-11-29] MEDS: spironolactone 25 mg Tablet 12.5 MG PO (18:03)
[2020-11-29] MEDS: FUROsemide 10 mg/mL SDV 4mL 40 MG IVP (18:04)
[2020-11-29 18:37] LABS: Erythrocyte Sedimentation Rate 10 mm/hr (0-15)
[2020-11-29] MEDS: midodrine 5 mg TABLET 2.5 MG PO (20:28)
[2020-11-29] MEDS: metoprolol tartrate 25 mg Tablet PO (20:29)
[2020-11-29] MEDS: atorvastatin 40 mg Tablet 20 MG PO (20:32)
[2020-11-29] MEDS: vancomycin 1,250 MG/250 ML PIGGYBACK 250 MG IV (20:32)
--- NOTE | 2020-11-29 21:44 | PC.NURSE ---
CT Pt went to CT per bed. has c/o bilat leg & foot pain. RN medicating with IV Morphine
[2020-11-29 21:55] LABS: Procalcitonin 0.24 ng/mL (0-0.5)
[2020-11-29] MEDS: hyDROXYzine 25 mg Capsule PO (22:01)
--- NOTE | 2020-11-29 22:03 | PC.NURSE ---
PAIN Pt told me her feet and legs were hurting badly but when RN took pain med in she told her she wasn't hurting anymore
[2020-11-29 22:06] LABS: C Reactive Protein 17.1 mg/L (0.0-4.9)
[2020-11-29] MEDS: morphine 4 mg/mL SDV 1 mL 2 MG IVP (22:46)
[2020-11-30 00:24] VITALS: BP 96/64; PULSE 107; RESP 18; TEMP 36.7; O2SAT 95
[2020-11-30 04:18] VITALS: BP 96/67; PULSE 113; RESP 18; TEMP 36.7; O2SAT 95
[2020-11-30] MEDS: FUROsemide 10 mg/mL SDV 4mL 40 MG IVP (04:41)
[2020-11-30 05:50] LABS: Basophils # 0.1 10^3/uL (0.0-0.1); Basophils % 0.7 %; Eosinophils # 0.1 10^3/uL (0.0-0.8); Eosinophils % 0.7 %; Hematocrit 38.8 % (37.0-47.0); Hemoglobin 11.3 g/dL (11.5-15.3); Lymphocytes # 1.1 10^3/uL (0.8-4.8); Lymphocytes % 14.6 %; Mean Corpuscular HGB Conc 29.1 g/dL (30.0-36.0); Mean Corpuscular Hemoglobin 25.2 pg (28.0-34.0); Mean Corpuscular Volume 86.4 fL (81-99); Monocytes # 0.8 10^3/uL (0.2-0.9); Monocytes % 10.3 %; Neutrophils # 5.38 10^3/uL (1.8-7.7); Neutrophils % 71.6 %; Nucleated Red Blood Cells % 0 %; Platelet Count 56 10^3/cmm (130-400); Red Blood Count 4.49 10^6/uL (4.1-5.3); Red Cell Distribution Width 24.6 % (12.1-15.1); White Blood Count 7.5 10^3/uL (4.0-10.0)
[2020-11-30 06:14] LABS: Glucose Point of Care 94 mg/dL (70-110)
--- NOTE | 2020-11-30 06:32 | PC.NURSE ---
SHIFT SUMMARY Rested some after pain med given last pm. Not long after she had refused the med she told her roommate her legs were just killing me Med was taken again to room and pt accepted it being given. Seemed to help her rest. When she is awake she hollers out for help instead of pushing her call light that is right in her hand. She is very particular about her covers. At first was c/o being very cold and wanted several blankets pulled up to her chin and all tucked in then want them all off and c/o being hot. Not long later she wants them back again. Pt has severe edema with weeping from right arm and BLE. Left inner wrist and forearm is bright red, warm and very tender. Arms elevated on pillows. Receiving IV Lasix. Urine is dark and cloudy. Slater in place. Takes po well but needs assist. Wanted gloves on her hands and very upset that we didn't have any. Socks were placed and cut out for fingers the way pt wanted them.
[2020-11-30 06:33] LABS: Alanine Aminotransferase 6 U/L (0-33); Albumin Level 2.7 g/dL (3.5-5.2); Alkaline Phosphatase 110 IU/L (35-105); Blood Urea Nitrogen 36 mg/dL (8-23); Calcium 8.6 mg/dL (8.5-10.5); Carbon Dioxide 19 mmol/L (22-29); Chloride 103 mmol/L (98-107); Globulin 3.1 g/dL (1.3-4.6); Glomerular Filtration Rate 30.2 mL/min (90-130); Glucose 78 mg/dL (65-115); Osmolality Calculated 285 mOsm/kg (285-295); Sodium 134 mmol/L (136-145); Total Bilirubin 0.8 mg/dL (0.15-1.2); Total Protein 5.8 g/dL (6.6-8.7)
[2020-11-30 06:48] LABS: Anion Gap 17.2 (5-19); Potassium 5.2 mmol/L (3.5-5.1)
[2020-11-30 06:49] LABS: Aspartate Amino Transferase 16 U/L (0-32)
[2020-11-30 08:00] VITALS: BP 134/82; PULSE 99; RESP 18; TEMP 36.5; O2SAT 94
[2020-11-30] MEDS: rivaroxaban 10 mg Tablet 15 MG PO (08:01)
[2020-11-30] MEDS: pantoprazole DR 40 mg Tablet PO (08:01)
[2020-11-30] MEDS: metoprolol tartrate 25 mg Tablet PO ×2 (08:01→21:35)
[2020-11-30] MEDS: midodrine 5 mg TABLET 2.5 MG PO ×2 (08:01→21:34)
[2020-11-30] MEDS: escitalopram 10 mg Tablet 30 MG PO (08:01)
[2020-11-30] MEDS: amiodarone 200 mg Tablet PO (08:02)
[2020-11-30] MEDS: spironolactone 25 mg Tablet 12.5 MG PO (08:02)
[2020-11-30] MEDS: metOLazone 5 MG Tablet PO (10:34)
--- NOTE | 2020-11-30 11:02 | PC.OT ---
Attempted to see patient for occupational therapy evaluation. Patient declined evaluation; reporting she is too tired today.
[2020-11-30 11:32] VITALS: PULSE 106; RESP 18; TEMP 36.5; O2SAT 96
--- NOTE | 2020-11-30 11:32 | PC.NURSE ---
patient refused bp. hurts too much
[2020-11-30 11:59] LABS: Glucose Point of Care 70 mg/dL (70-110)
--- NOTE | 2020-11-30 13:10 | PC.PT ---
PT note;Patient requires use of Brittany lift at [facility], and also not participatory with physical therapy there, patient not really participatory when here last time either, will not attempt to drink her own water, preferring someone else to bring cup to her mouth, while she is fully capable of doing this herself; due to lack of participation and prior level of function which has led to patient being placed in [facility], she is fully appropriate for physical therapy evaluation, discussed all with Dr. Young who agrees fully, Dr. Young states to discharge phjysical therapy evaluation.
[2020-11-30 15:21] LABS: Glucose Point of Care 77 mg/dL (70-110)
[2020-11-30 15:57] VITALS: PULSE 104; RESP 20; TEMP 36.3; O2SAT 96
--- NOTE | 2020-11-30 16:21 | PM.PN ---
Subjective Subjective: Interval history: This morning patient was examined, she wants to be left alone, she has no particular complaints, she remains bedbound, according to physical therapy she does not have any motivation to get up out of bed, she has no particular complaints, fevers, chills, no nausea, no vomiting Vitals/I&O/Wt Last Vital Signs Temp 97.4 F L 11/30/20 15:57 Pulse 104 H 11/30/20 15:57 Resp 20 H 11/30/20 15:57 BP 134/82 11/30/20 08:00 Pulse Ox 96 11/30/20 15:57 11/30/20 11/30/20 11/30/20 06:59 14:59 22:59 Intake Total 250 / 500 120 / 120 Output Total 250 / 600 Balance 0 / -100 120 / 120 Weight last 48 hrs Weight 98.883 kg Physical Exam Const: COMMON NORMALS: no acute distress and alert ORIENTATION/CONSCIOUSNESS: Yes awake and Yes oriented to person; not oriented to place and not oriented to time HENMT: COMMON NORMALS: normocephalic HEAD & SCALP: normocephalic Neck/C-Spine: COMMON NORMALS: no JVD Resp: COMMON NORMALS: normal respiratory effort, No retractions, No use of accessory muscles and clear to auscultation bilaterally AUSCULTATION: clear to auscultation bilaterally Cardio: COMMON NORMALS: no JVD, regular rate, regular rhythm, S1 normal heart sound present and S2 normal heart sound present RATE: regular rate RHYTHM: regular rhythm HEART SOUNDS: S1 normal heart sound present and S2 normal heart sound present GI: COMMON NORMALS: Normal to inspection, nondistended, normoactive bowel sounds present, Soft to palpation, non-tender, No hepatosplenomegaly present, no masses and no bruits PALPATION: Yes Soft to palpation and Yes No hepatosplenomegaly present Extremity: COMMON NORMALS: capillary refill normal, no clubbing, cyanosis or edema, no calf tenderness and no pedal edema Neuro: SENSORIUM/ORIENTATION: Yes alert, Yes oriented to person, No oriented to place and No oriented to time Psych: COMMON NORMALS: mental status grossly normal Skin: NARRATIVE SKIN EXAM: Bilateral lower extremity edema, 1+ pitting Data : 11/30/20 05:16 11/30/20 05:16 Micro: Microbiology 11/29/20 14:00 Blood Culture - Preliminary Blood NEGATIVE TO DATE 11/29/20 10:00 Blood Culture - Preliminary Blood NEGATIVE TO DATE 11/29/20 10:00 Urine Culture - Preliminary Urine,Clean Catch Gram Negative Rods A&P Assessment and plan (1) Anasarca: -Likely secondary to diastolic CHF, right-sided heart failure, pulmonary hypertension -has gained roughly 10 pounds in the last few days, weight on last admission was 83 kg, weight today is 98.8 kg -BNP 8864, creatinine 1.7, serum sodium 135 -Echocardiogram from October 30, 2020 shows: Small left ventricular cavity size. Normal left ventricular cavity size. Left ventricular ejection fraction is estimated at 55 %. Flattened septum in diastole consistent with right ventricle volume overload. 2-Severely increased right ventricular size. Severely decreased right ventricular systolic function. Moderate pulmonary hypertension, RVSP 65 mmHg. 3-Severely increased right atrial size. 4-Moderately increased left atrial size. 5-Severely thickened mitral valve. Severe mitral annular calcification. No mitral valve stenosis. Moderate to severe mitral valve regurgitation. 6-Severe aortic valve calcification. Moderate aortic valve stenosis, mean gradient, aortic valve is not well-visualized therefore cannot assess gradient on aortic valve area however appears to be moderately stenotic. 7-Structurally normal tricuspid valve without significant stenosis or regurgitation. Pulmonary artery systolic pressure is normal. 8-There is no pericardial effusion. 9-Right atrial pressure is around 20 mm of mercury. -Urine output lackluster at 600 cc, creatinine 1.7, potassium 5.2 Plan: -Fluid restrictions -Daily weights -Lasix 40 mg IV twice daily, 1 dose of metolazone -Start spironolactone 12.5 mg daily to monitor serum potassiums -Monitor creatinine and urine output closely -On last admission patient had SANDY secondary to diuretics, hypoperfusion, has chronic hypotension, prerenal azotemia will start slow diuretic therapy and monitor her clinical response as she has CKD Status: Acute (2) Hyponatremia: Monitor sodium levels closely given diuresis, serum sodium 134 Status: Acute (3) CKD (chronic kidney disease) stage 4, GFR 15-29 ml/min: Will monitor creatinine closely Status: Chronic (4) Pulmonary hypertension: Status: Acute (5) Right heart failure: Status: Acute Qualifiers: Heart failure chronicity: acute on chronic Qualified Code(s): I50.813 - Acute on chronic right heart failure (6) Pleural effusion: Status: Acute (7) Atrial fibrillation: Continue amiodarone Xarelto on hold given thrombocytopenia Status: Acute (8) Diabetes: Low-dose sliding scale Levemir 10 units in the morning Status: Chronic (9) Diastolic CHF: Status: Acute (10) Pacemaker: Status: Acute (11) H/O tricuspid valve annuloplasty: Status: Acute (12) Status post mitral valve annuloplasty: Status: Acute (13) Urinary tract infection: -Start on Primaxin -Follow urine cultures, blood cultures CT scan of the abdomen pelvis does not show any obstructive uropathy or pyelonephritis Status: Acute (14) Chronic hypotension: -Has chronic hypotension on midodrine, -Does have a UTI -We will obtain lactic acid CRP pro-Lenny -Continue midodrine for now Status: Acute (15) Cellulitis of left wrist: -X-ray of the wrist shows cellulitis, start on vancomycin Status: Acute (16) Thrombocytopenia: -Likely secondary to fatty liver disease, and liver cirrhosis, CT scan of the abdomen shows liver irregularity suggesting liver cirrhosis, -Could be platelet clumping -For now hold Xarelto -Monitor for bleeding Status: Acute Additional A&P Information Has chronic hypotension, is on midodrine, likely related to right-sided heart failure Attestations Medical Necessity Statement*: Patient requires hospitalization for diffuse anasarca, diastolic CHF, right-sided heart failure, UTI, left wrist cellulitis Coding Level of Care Code Acute Philosophy And Religion Instructor for [facility] Diagnoses Anasarca R60.1 Hyponatremia E87.1 CKD (chronic kidney disease) stage 4, GFR 15-29 ml/min N18.4 Pulmonary hypertension I27.20 Right heart failure I50.813 Heart failure chronicity: acute on chronic Pleural effusion J90 Atrial fibrillation I48.91 Diabetes E11.9 Diastolic CHF I50.30 Pacemaker Z95.0 H/O tricuspid valve annuloplasty Z98.890 Status post mitral valve annuloplasty Z98.890 Urinary tract infection N39.0 Chronic hypotension I95.89 Cellulitis of left wrist L03.114 Thrombocytopenia D69.6
[2020-11-30 16:31] LABS: Glucose Point of Care 79 mg/dL (70-110)
[2020-11-30] MEDS: vancomycin 1,250 MG/250 ML PIGGYBACK 250 MG IV (18:50)
[2020-11-30 20:00] VITALS: BP 97/67; PULSE 97; RESP 21; TEMP 36.3; O2SAT 96
[2020-11-30 21:28] LABS: Glucose Point of Care 74 mg/dL (70-110)
[2020-11-30] MEDS: atorvastatin 40 mg Tablet 20 MG PO (21:34)
[2020-12-01] VITALS: BP 92/63; PULSE 93; RESP 26; TEMP 36.7; O2SAT 96
[2020-12-01] MEDS: LORazepam 2 mg/mL INJ 1 mL 0.5 MG IVP (03:12)
[2020-12-01 03:44] VITALS: BP 94/52; PULSE 95; RESP 28; TEMP 36.6; O2SAT 95
[2020-12-01 05:43] LABS: Basophils # 0.1 10^3/uL (0.0-0.1); Basophils % 1.1 %; Eosinophils % 0.7 %; Hematocrit 34.7 % (37.0-47.0); Hemoglobin 10.1 g/dL (11.5-15.3); Lymphocytes # 0.7 10^3/uL (0.8-4.8); Lymphocytes % 11.8 %; Mean Corpuscular HGB Conc 29.1 g/dL (30.0-36.0); Mean Corpuscular Hemoglobin 25.1 pg (28.0-34.0); Mean Corpuscular Volume 86.1 fL (81-99); Monocytes # 0.6 10^3/uL (0.2-0.9); Monocytes % 10.6 %; Neutrophils # 4.21 10^3/uL (1.8-7.7); Neutrophils % 74.4 %; Nucleated Red Blood Cells % 0 %; Platelet Count 51 10^3/cmm (130-400); Red Blood Count 4.03 10^6/uL (4.1-5.3); Red Cell Distribution Width 24.4 % (12.1-15.1); White Blood Count 5.7 10^3/uL (4.0-10.0)
[2020-12-01 06:10] LABS: Alanine Aminotransferase 6 U/L (0-33); Albumin Level 2.3 g/dL (3.5-5.2); Alkaline Phosphatase 95 IU/L (35-105); Aspartate Amino Transferase 11 U/L (0-32); Blood Urea Nitrogen 37 mg/dL (8-23); Calcium 8.3 mg/dL (8.5-10.5); Carbon Dioxide 19 mmol/L (22-29); Chloride 102 mmol/L (98-107); Globulin 2.6 g/dL (1.3-4.6); Glomerular Filtration Rate 34.9 mL/min (90-130); Glucose 65 mg/dL (65-115); Magnesium 1.8 mg/dL (1.7-2.3); Osmolality Calculated 281 mOsm/kg (285-295); Phosphorus 2.5 mg/dL (2.5-4.5); Sodium 132 mmol/L (136-145); Total Bilirubin 0.8 mg/dL (0.15-1.2); Total Protein 4.9 g/dL (6.6-8.7)
[2020-12-01 06:13] LABS: Anion Gap 14.7 (5-19); Potassium 3.7 mmol/L (3.5-5.1)
[2020-12-01 06:34] LABS: Glucose Point of Care 93 mg/dL (70-110)
[2020-12-01] MEDS: levothyroxine 25 mcg Tablet PO (07:47)
[2020-12-01 08:00] VITALS: BP 100/67; PULSE 91; RESP 18; TEMP 36.3; O2SAT 99
--- NOTE | 2020-12-01 09:03 | PC.OT ---
Patient declined occupational therapy evaluation on this date and declined participating in any activity. Patient screened and is not being picked up for further occupational therapy.
[2020-12-01] MEDS: pantoprazole DR 40 mg Tablet PO (09:24)
[2020-12-01] MEDS: metoprolol tartrate 25 mg Tablet PO ×2 (09:24→19:34)
[2020-12-01] MEDS: spironolactone 25 mg Tablet 12.5 MG PO (09:24)
[2020-12-01] MEDS: midodrine 5 mg TABLET 2.5 MG PO ×2 (09:24→19:34)
[2020-12-01] MEDS: amiodarone 200 mg Tablet PO (09:24)
[2020-12-01] MEDS: escitalopram 10 mg Tablet 30 MG PO (09:25)
--- NOTE | 2020-12-01 09:25 | PC.NURSE ---
Dr. Perry in to see patient, discussed plan of care including getting patient up to chair today, patient verbalized agreement, but after physician left room patient agitated that nurse was administering morning medication and states, please just leave me alone all I want to do today is sleep. reinforcement of plan of care and encouragement will be provided throughout shift.
[2020-12-01] MEDS: metOLazone 5 MG Tablet PO (10:02)
--- NOTE | 2020-12-01 10:32 | PC.CHAP ---
Pastoral Care Encounter/Spiritual Assessment Type of Contact [] Declined power system engineer visit [] Patient/Family/Request visit [] Outpatient visit [] Follow-up visit [] Physician referral [] Code/Alert [x] Routine visit [] Staff referral [] Actively dying [] Patient sleeping [] Family support [] [] Out of room [] Palliative care [] [x] Receiving care in room [] Pre-surgical visit [] Trauma [] Long length of stay [] ICU visit [] Other: Relational/Emotional Strength [] Patient feels connected with others/family/visitors/staff [x] Distress [] Loneliness/isolation [] Abandonment Spirituality of Patient [] Person of [place] [] Attends Jew of their [place] [] Believes in Prayer [] Reads Bible or Congregational materials [] There are Spiritual issues to be addressed Certified Adaptive Physical Educator Interventions [] Prayer [] Active listening [] Non-anxious presence [] Spiritual/emotional support [] Crisis/trauma care [] Spiritual counseling [] Bereavement support [] Provided bereavement packet [] Provided Bible/devotional materials [] Provided toy/stuffed animal, coloring book to patient or family member [] Provided Communion [] Anointing/[place] [] Salvation [] Completed spiritual assessment [] Other: Impact on Illness or Injury [] Angry [x] Fearful [] Anxious [] Often cries [] Exhaustion [x] Unable to work [] Unable to attend jain [] Unable to walk/stand [] Unable to read [x] Unable to drive [] Unable to eat/drink [] Unable to sleep [] Unable to be with family [] Patient intubated [] Other: Summary Unable to communicate her feelings, doesn't know about her health at this time? Time spent with patient 10 mins
--- NOTE | 2020-12-01 10:40 | PC.NURSE ---
scheduled fingerstick 66, provided orange juice and assisted patient with drinking 118mL before this nurse left the room, patient awake alert and oriented, tolerated PO fluids without any difficulty.
[2020-12-01 10:58] LABS: Glucose Point of Care 66 mg/dL (70-110)
--- NOTE | 2020-12-01 11:00 | PC.NURSE ---
Patient refusing to turn and reposition for lunch.
--- NOTE | 2020-12-01 11:54 | PM.PN ---
Subjective Subjective: Interval history: This morning patient is alert to person, place, not to time, she has no complaints, still has diffuse anasarca, she refuses to get up out of bed with physical therapy, with discussion, she agrees that she will get up into a chair, afebrile overnight Vitals/I&O/Wt Last Vital Signs Temp 97.4 F L 12/01/20 08:00 Pulse 91 12/01/20 08:00 Resp 18 12/01/20 08:00 BP 100/67 12/01/20 08:00 Pulse Ox 99 12/01/20 08:00 11/30/20 12/01/20 12/01/20 22:59 06:59 14:59 Intake Total 800 / 920 600 / 1520 Output Total 400 / 400 450 / 850 Balance 400 / 520 150 / 670 Weight last 48 hrs Weight 106.776 kg Weight 106.64 kg Physical Exam Const: COMMON NORMALS: no acute distress GENERAL APPEARANCE: cooperative ORIENTATION/CONSCIOUSNESS: Yes awake, Yes oriented to person and Yes oriented to place; not oriented to time HENMT: COMMON NORMALS: normocephalic HEAD & SCALP: normocephalic Neck/C-Spine: COMMON NORMALS: no JVD Resp: COMMON NORMALS: normal respiratory effort, No retractions, No use of accessory muscles and clear to auscultation bilaterally AUSCULTATION: clear to auscultation bilaterally Cardio: COMMON NORMALS: no JVD, regular rate, regular rhythm, S1 normal heart sound present and S2 normal heart sound present RATE: regular rate RHYTHM: regular rhythm HEART SOUNDS: S1 normal heart sound present and S2 normal heart sound present GI: COMMON NORMALS: Normal to inspection, nondistended, normoactive bowel sounds present, Soft to palpation, non-tender, No hepatosplenomegaly present, no masses and no bruits PALPATION: Yes Soft to palpation and Yes No hepatosplenomegaly present Extremity: COMMON NORMALS: capillary refill normal, no clubbing, cyanosis or edema and no calf tenderness NARRATIVE EXTREMITY EXAM: Diffuse anasarca, 2+ pitting edema Neuro: SENSORIUM/ORIENTATION: Yes oriented to person, Yes oriented to place and No oriented to time Psych: COMMON NORMALS: mental status grossly normal Urinary Catheter Management^: Slater: Cath Placed During This Visit: no Reason for Continuing Indwelling Catheter: Chronic Indwelling Urinary Catheter on Admission Data : 12/01/20 04:48 12/01/20 04:48 Micro: Microbiology 11/29/20 10:00 Urine Culture - Final Urine,Clean Catch Citrobacter youngae 11/29/20 14:00 Blood Culture - Preliminary Blood NEGATIVE TO DATE 11/29/20 10:00 Blood Culture - Preliminary Blood NEGATIVE TO DATE A&P Assessment and plan (1) Anasarca: -Likely secondary to diastolic CHF, right-sided heart failure, pulmonary hypertension -has gained roughly 10 pounds in the last few days, weight on last admission was 83 kg, weight today is 98.8 kg -Echocardiogram from October 30, 2020 shows: Small left ventricular cavity size. Normal left ventricular cavity size. Left ventricular ejection fraction is estimated at 55 %. Flattened septum in diastole consistent with right ventricle volume overload. 2-Severely increased right ventricular size. Severely decreased right ventricular systolic function. Moderate pulmonary hypertension, RVSP 65 mmHg. 3-Severely increased right atrial size. 4-Moderately increased left atrial size. 5-Severely thickened mitral valve. Severe mitral annular calcification. No mitral valve stenosis. Moderate to severe mitral valve regurgitation. 6-Severe aortic valve calcification. Moderate aortic valve stenosis, mean gradient, aortic valve is not well-visualized therefore cannot assess gradient on aortic valve area however appears to be moderately stenotic. 7-Structurally normal tricuspid valve without significant stenosis or regurgitation. Pulmonary artery systolic pressure is normal. 8-There is no pericardial effusion. 9-Right atrial pressure is around 20 mm of mercury. -Urine output lackluster at 850 cc, creatinine 1.5, potassium 3.7 Plan: -Fluid restrictions -Daily weights -Lasix 40 mg IV twice daily, metolazone daily -Start spironolactone 12.5 mg daily to monitor serum potassiums -Monitor creatinine and urine output closely -On last admission patient had SANDY secondary to diuretics, hypoperfusion, has chronic hypotension, prerenal azotemia will start slow diuretic therapy and monitor her clinical response as she has CKD Status: Acute (2) Hyponatremia: Monitor sodium levels closely given diuresis, serum sodium 132 Status: Acute (3) CKD (chronic kidney disease) stage 4, GFR 15-29 ml/min: Will monitor creatinine closely Status: Chronic (4) Pulmonary hypertension: Status: Acute (5) Right heart failure: Status: Acute Qualifiers: Heart failure chronicity: acute on chronic Qualified Code(s): I50.813 - Acute on chronic right heart failure (6) Pleural effusion: Status: Acute (7) Atrial fibrillation: Continue amiodarone Xarelto on hold given thrombocytopenia Status: Acute (8) Diabetes: Low-dose sliding scale Levemir 10 units in the morning Status: Chronic (9) Diastolic CHF: Status: Acute (10) Pacemaker: Status: Acute (11) H/O tricuspid valve annuloplasty: Status: Acute (12) Status post mitral valve annuloplasty: Status: Acute (13) Urinary tract infection: -Start on Primaxin -Follow urine cultures, blood cultures CT scan of the abdomen pelvis does not show any obstructive uropathy or pyelonephritis Status: Acute (14) Chronic hypotension: -Has chronic hypotension on midodrine, -Does have a UTI -Continue midodrine for now Status: Acute (15) Cellulitis of left wrist: -X-ray of the wrist shows cellulitis, improving, continue vancomycin Status: Acute (16) Thrombocytopenia: -Likely secondary to fatty liver disease, and liver cirrhosis, CT scan of the abdomen shows liver irregularity suggesting liver cirrhosis, -Could be platelet clumping -For now hold Xarelto -Monitor for bleeding Status: Acute Additional A&P Information Has chronic hypotension, is on midodrine, likely related to right-sided heart failure Attestations Medical Necessity Statement*: Patient requires hospitalization for diffuse anasarca, right-sided heart failure, diastolic CHF, UTI, left wrist cellulitis, chronic hypotension Coding Level of Care Code Acute Human Resources Communications Manager for [facility] Diagnoses Anasarca R60.1 Hyponatremia E87.1 CKD (chronic kidney disease) stage 4, GFR 15-29 ml/min N18.4 Pulmonary hypertension I27.20 Right heart failure I50.813 Heart failure chronicity: acute on chronic Pleural effusion J90 Atrial fibrillation I48.91 Diabetes E11.9 Diastolic CHF I50.30 Pacemaker Z95.0 H/O tricuspid valve annuloplasty Z98.890 Status post mitral valve annuloplasty Z98.890 Urinary tract infection N39.0 Chronic hypotension I95.89 Cellulitis of left wrist L03.114 Thrombocytopenia D69.6
[2020-12-01 12:00] VITALS: BP 91/55; PULSE 91; RESP 17; TEMP 36.3; O2SAT 95
--- NOTE | 2020-12-01 14:16 | PC.NURSE ---
Patient repositioned with X2 assist, replaced all absorbent pads, right leg weeping continuously, weeping noted on all four limbs, pillows placed to reduce pressure. Call light in reach, side rails up x2.
[2020-12-01 15:48] VITALS: BP 93/64; PULSE 88; RESP 14; TEMP 36.4; O2SAT 96
[2020-12-01] MEDS: FUROsemide 10 mg/mL SDV 4mL 40 MG IVP (17:23)
[2020-12-01 17:31] LABS: Glucose Point of Care 183 mg/dL (70-110)
[2020-12-01 19:04] LABS: Vancomycin Trough 15.8 ug/mL (10-15)
[2020-12-01] MEDS: vancomycin 1,250 MG/250 ML PIGGYBACK 250 MG IV (19:34)
[2020-12-01] MEDS: atorvastatin 40 mg Tablet 20 MG PO (19:34)
[2020-12-01 19:35] VITALS: BP 97/68; PULSE 92; RESP 17; TEMP 36.3; O2SAT 94
[2020-12-01 21:25] LABS: Glucose Point of Care 155 mg/dL (70-110)
[2020-12-01] MEDS: morphine 4 mg/mL SDV 1 mL 2 MG IVP (21:30)
[2020-12-01] MEDS: hyDROXYzine 25 mg Capsule PO (21:45)
[2020-12-02] VITALS (8 sets, daily range): BP systolic 88–105; BP diastolic 59–70; PULSE 91–110; RESP 14–20; TEMP 36.4–37; O2SAT 94–96; BMI 43.0
[2020-12-02] MEDS: levothyroxine 25 mcg Tablet PO (05:00)
[2020-12-02 05:14] LABS: Basophils % 0.7 %; Eosinophils # 0.1 10^3/uL (0.0-0.8); Eosinophils % 0.8 %; Hematocrit 36.8 % (37.0-47.0); Lymphocytes # 0.7 10^3/uL (0.8-4.8); Mean Corpuscular HGB Conc 29.9 g/dL (30.0-36.0); Mean Corpuscular Hemoglobin 24.9 pg (28.0-34.0); Mean Corpuscular Volume 83.4 fL (81-99); Monocytes # 0.6 10^3/uL (0.2-0.9); Monocytes % 9.6 %; Neutrophils # 4.53 10^3/uL (1.8-7.7); Neutrophils % 75.2 %; Nucleated Red Blood Cells % 0 %; Platelet Count 76 10^3/cmm (130-400); Red Blood Count 4.41 10^6/uL (4.1-5.3); Red Cell Distribution Width 23.8 % (12.1-15.1)
[2020-12-02 05:48] LABS: Alanine Aminotransferase 6 U/L (0-33); Albumin Level 2.5 g/dL (3.5-5.2); Alkaline Phosphatase 115 IU/L (35-105); Anion Gap 17.3 (5-19); Aspartate Amino Transferase 10 U/L (0-32); Blood Urea Nitrogen 34 mg/dL (8-23); Calcium 8.3 mg/dL (8.5-10.5); Carbon Dioxide 19 mmol/L (22-29); Chloride 99 mmol/L (98-107); Globulin 2.8 g/dL (1.3-4.6); Glomerular Filtration Rate 37.7 mL/min (90-130); Glucose 134 mg/dL (65-115); Magnesium 1.7 mg/dL (1.7-2.3); Osmolality Calculated 284 mOsm/kg (285-295); Phosphorus 2.7 mg/dL (2.5-4.5); Potassium 3.3 mmol/L (3.5-5.1); Sodium 132 mmol/L (136-145); Total Bilirubin 0.9 mg/dL (0.15-1.2); Total Protein 5.3 g/dL (6.6-8.7)
[2020-12-02] MEDS: FUROsemide 10 mg/mL SDV 4mL 40 MG IVP ×2 (06:12→16:04)
[2020-12-02 07:06] LABS: Glucose Point of Care 131 mg/dL (70-110)
[2020-12-02] MEDS: midodrine 5 mg TABLET 2.5 MG PO ×2 (08:48→20:19)
[2020-12-02] MEDS: spironolactone 25 mg Tablet 12.5 MG PO (08:48)
[2020-12-02] MEDS: amiodarone 200 mg Tablet PO (08:48)
[2020-12-02] MEDS: pantoprazole DR 40 mg Tablet PO (08:49)
[2020-12-02] MEDS: escitalopram 10 mg Tablet 30 MG PO (08:49)
[2020-12-02] MEDS: metOLazone 5 MG Tablet PO (08:49)
--- NOTE | 2020-12-02 09:55 | PC.SOCIAL ---
Pg 2 IMM Explained to pt Pg 2 IMM. No questions voiced. Provided pt a copy. Signed, dated, & timed a copy & placed in chart.
--- NOTE | 2020-12-02 10:23 | PC.NURSE ---
patient refusing reposition at this time. states, please leave the lights off and let me sleep thank you. encouragement provided and discussed plan of care, reinforcement needed.
[2020-12-02 11:57] LABS: Glucose Point of Care 136 mg/dL (70-110)
--- NOTE | 2020-12-02 12:35 | P.PN_ITS ---
Subjective Subjective: Interval history: Patient was examined this morning, she has no complaints, according to nursing staff she does not want to have physical therapy, she does not want to get out of bed, no fevers, chills, nausea shortness of breath Vitals/I&O/Wt Last Vital Signs Temp 98.6 F 12/02/20 12:00 Pulse 91 12/02/20 12:00 Resp 18 12/02/20 12:00 BP 92/60 12/02/20 12:00 Pulse Ox 95 12/02/20 12:00 12/01/20 12/02/20 12/02/20 22:59 06:59 14:59 Intake Total 538 / 938 100 / 1038 120 / 120 Output Total 650 / 650 925 / 1575 Balance -112 / 288 -825 / -537 120 / 120 Weight last 48 hrs Weight 106.776 kg Weight 106.776 kg Weight 106.64 kg Physical Exam Const: COMMON NORMALS: no acute distress and patient oriented x3 HENMT: COMMON NORMALS: normocephalic HEAD & SCALP: normocephalic Neck/C-Spine: COMMON NORMALS: no JVD Resp: COMMON NORMALS: normal respiratory effort, No retractions, No use of accessory muscles and clear to auscultation bilaterally AUSCULTATION: clear to auscultation bilaterally Cardio: COMMON NORMALS: no JVD, regular rate, regular rhythm, S1 normal heart sound present and S2 normal heart sound present RATE: regular rate RHYTHM: regular rhythm HEART SOUNDS: S1 normal heart sound present and S2 normal heart sound present GI: COMMON NORMALS: Normal to inspection, nondistended, normoactive bowel sounds present, Soft to palpation, non-tender, No hepatosplenomegaly present, no masses and no bruits PALPATION: Yes Soft to palpation and Yes No hepatosplenomegaly present Extremity: COMMON NORMALS: capillary refill normal, no clubbing, cyanosis or edema, no calf tenderness and no pedal edema Neuro: COMMON NORMALS: patient oriented x3 Psych: COMMON NORMALS: mental status grossly normal Skin: NARRATIVE SKIN EXAM: Generalized anasarca, 2+ pitting edema Urinary Catheter Management^: Slater: Cath Placed During This Visit: no Reason for Continuing Indwelling Catheter: Chronic Indwelling Urinary Catheter on Admission Data : 12/02/20 04:09 12/02/20 04:09 Micro: Microbiology 11/29/20 10:00 Urine Culture - Final Urine,Clean Catch Citrobacter youngae A&P Assessment and plan (1) Anasarca: -Likely secondary to diastolic CHF, right-sided heart failure, pulmonary hypertension -has gained roughly 10 pounds in the last few days, weight on last admission was 83 kg, weight today is 98.8 kg -Echocardiogram from October 30, 2020 shows: Small left ventricular cavity size. Normal left ventricular cavity size. Left ventricular ejection fraction is estimated at 55 %. Flattened septum in diastole consistent with right ventricle volume overload. 2-Severely increased right ventricular size. Severely decreased right ventricular systolic function. Moderate pulmonary hypertension, RVSP 65 mmHg. 3-Severely increased right atrial size. 4-Moderately increased left atrial size. 5-Severely thickened mitral valve. Severe mitral annular calcification. No mitral valve stenosis. Moderate to severe mitral valve regurgitation. 6-Severe aortic valve calcification. Moderate aortic valve stenosis, mean gradient, aortic valve is not well-visualized therefore cannot assess gradient on aortic valve area however appears to be moderately stenotic. 7-Structurally normal tricuspid valve without significant stenosis or regurgitation. Pulmonary artery systolic pressure is normal. 8-There is no pericardial effusion. 9-Right atrial pressure is around 20 mm of mercury. -Urine output has improved to 1575 cc, creatinine 1.4, potassium 3.3 Plan: -Fluid restrictions -Daily weights -Lasix 40 mg IV twice daily, metolazone daily -Start spironolactone 12.5 mg daily to monitor serum potassiums -Monitor creatinine and urine output closely -On last admission patient had SANDY secondary to diuretics, hypoperfusion, has chronic hypotension, prerenal azotemia will start slow diuretic therapy and monitor her clinical response as she has CKD Status: Acute (2) Hyponatremia: Monitor sodium levels closely given diuresis, serum sodium 132 Status: Acute (3) CKD (chronic kidney disease) stage 4, GFR 15-29 ml/min: Will monitor creatinine closely, creatinine 1.4 Status: Chronic (4) Pulmonary hypertension: Status: Acute (5) Right heart failure: Status: Acute Qualifiers: Heart failure chronicity: acute on chronic Qualified Code(s): I50.813 - Acute on chronic right heart failure (6) Pleural effusion: Status: Acute (7) Atrial fibrillation: Continue amiodarone Xarelto on hold given thrombocytopenia Status: Acute (8) Diabetes: Low-dose sliding scale Levemir 10 units in the morning Status: Chronic (9) Diastolic CHF: Status: Acute (10) Pacemaker: Status: Acute (11) H/O tricuspid valve annuloplasty: Status: Acute (12) Status post mitral valve annuloplasty: Status: Acute (13) Urinary tract infection: -Start on Primaxin -Follow urine cultures, blood cultures -CT scan of the abdomen pelvis does not show any obstructive uropathy or pyelonephritis Status: Acute (14) Chronic hypotension: -Has chronic hypotension on midodrine, -Does have a UTI -Continue midodrine for now Status: Acute (15) Cellulitis of left wrist: -X-ray of the wrist shows cellulitis, improving, continue vancomycin Status: Acute (16) Thrombocytopenia: -Likely secondary to fatty liver disease, and liver cirrhosis, CT scan of the abdomen shows liver irregularity suggesting liver cirrhosis, -Could be platelet clumping -For now hold Xarelto -Monitor for bleeding Status: Acute Additional A&P Information Has chronic hypotension, is on midodrine, likely related to right-sided heart failure Attestations Medical Necessity Statement*: Patient requires hospitalization for generalized anasarca, diastolic CHF exacerbation, bilateral lower extreme edema, left wrist cellulitis, UTI Coding Level of Care Code Acute Legal Entity Controller for [facility] Diagnoses Anasarca R60.1 Hyponatremia E87.1 CKD (chronic kidney disease) stage 4, GFR 15-29 ml/min N18.4 Pulmonary hypertension I27.20 Right heart failure I50.813 Heart failure chronicity: acute on chronic Pleural effusion J90 Atrial fibrillation I48.91 Diabetes E11.9 Diastolic CHF I50.30 Pacemaker Z95.0 H/O tricuspid valve annuloplasty Z98.890 Status post mitral valve annuloplasty Z98.890 Urinary tract infection N39.0 Chronic hypotension I95.89 Cellulitis of left wrist L03.114 Thrombocytopenia D69.6
[2020-12-02] MEDS: potassium chloride ER 20 mEq Tablet 40 MEQ PO (13:11)
[2020-12-02] MEDS: sodium chloride 0.9% 1,000 ML 75 ML IV (14:29)
--- NOTE | 2020-12-02 15:41 | PC.NURSE ---
Bed bath completed, absorbent pads replaced, linens changed, repositioned with pillows, light off per patient request, call light in reach.
[2020-12-02] MEDS: acetaminophen 325 mg Tablet 650 MG PO (16:02)
[2020-12-02 17:09] LABS: Glucose Point of Care 123 mg/dL (70-110)
[2020-12-02] MEDS: vancomycin 1,250 MG/250 ML PIGGYBACK 250 MG IV (18:03)
[2020-12-02] MEDS: hyDROXYzine 25 mg Capsule PO (20:20)
[2020-12-02] MEDS: atorvastatin 40 mg Tablet 20 MG PO (20:20)
[2020-12-02] MEDS: metoprolol tartrate 25 mg Tablet PO (20:20)
[2020-12-02 21:28] LABS: Glucose Point of Care 123 mg/dL (70-110)
[2020-12-02] MEDS: morphine 4 mg/mL SDV 1 mL 2 MG IVP (22:45)
--- NOTE | 2020-12-03 02:42 | PC.PHAR ---
Primaxin changed to q12h from q6h due to crcl of 15
[2020-12-03 03:56] VITALS: BP 107/69; PULSE 86; RESP 13; TEMP 36.4; O2SAT 95
[2020-12-03] MEDS: FUROsemide 10 mg/mL SDV 4mL 40 MG IVP ×2 (05:37→17:27)
[2020-12-03] MEDS: levothyroxine 25 mcg Tablet PO (06:24)
[2020-12-03 06:49] LABS: Glucose Point of Care 111 mg/dL (70-110)
[2020-12-03 08:00] VITALS: BP 111/68; PULSE 84; RESP 17; TEMP 36.7; O2SAT 96
[2020-12-03] MEDS: escitalopram 10 mg Tablet 30 MG PO (09:19)
[2020-12-03] MEDS: metOLazone 5 MG Tablet PO (09:20)
[2020-12-03] MEDS: amiodarone 200 mg Tablet PO (09:20)
[2020-12-03] MEDS: potassium chloride ER 20 mEq Tablet 40 MEQ PO (09:20)
[2020-12-03] MEDS: midodrine 5 mg TABLET 2.5 MG PO ×2 (09:20→19:46)
[2020-12-03] MEDS: pantoprazole DR 40 mg Tablet PO (09:20)
[2020-12-03] MEDS: metoprolol tartrate 25 mg Tablet PO ×2 (09:21→19:46)
[2020-12-03] MEDS: spironolactone 25 mg Tablet 12.5 MG PO (09:21)
[2020-12-03 11:06] LABS: Glucose Point of Care 125 mg/dL (70-110)
[2020-12-03 12:00] VITALS: BP 121/68; PULSE 86; RESP 18; TEMP 36.6; O2SAT 97
[2020-12-03] MEDS: hyDROXYzine 25 mg Capsule PO (12:54)
--- NOTE | 2020-12-03 13:01 | PM.PN ---
Subjective Subjective: Interval history: Patient was examined this morning, she tells me that she really wants to get up out of bed, continues to have diffuse anasarca, urine output has improved, she just does not really have any motivation this morning, she has no particular complaints except she wants to get up out of bed, Vitals/I&O/Wt Last Vital Signs Temp 97.8 F 12/03/20 12:00 Pulse 86 12/03/20 12:00 Resp 18 12/03/20 12:00 BP 121/68 12/03/20 12:00 Pulse Ox 97 12/03/20 12:00 12/02/20 12/03/20 12/03/20 22:59 06:59 14:59 Intake Total 860 / 1200 200 / 1400 500 / 500 Output Total 600 / 1150 Balance 860 / 650 -400 / 250 500 / 500 Weight last 48 hrs Weight 104.326 kg Weight 106.776 kg Physical Exam Const: COMMON NORMALS: no acute distress and patient oriented x3 HENMT: COMMON NORMALS: normocephalic HEAD & SCALP: normocephalic Neck/C-Spine: COMMON NORMALS: no JVD Resp: COMMON NORMALS: normal respiratory effort, No retractions, No use of accessory muscles and clear to auscultation bilaterally AUSCULTATION: clear to auscultation bilaterally Cardio: COMMON NORMALS: no JVD, regular rate, regular rhythm, S1 normal heart sound present and S2 normal heart sound present RATE: regular rate RHYTHM: regular rhythm HEART SOUNDS: S1 normal heart sound present and S2 normal heart sound present GI: COMMON NORMALS: Normal to inspection, nondistended, normoactive bowel sounds present, Soft to palpation, non-tender, No hepatosplenomegaly present, no masses and no bruits PALPATION: Yes Soft to palpation and Yes No hepatosplenomegaly present Extremity: COMMON NORMALS: capillary refill normal, no clubbing, cyanosis or edema, no calf tenderness and no pedal edema Neuro: COMMON NORMALS: patient oriented x3 Psych: COMMON NORMALS: mental status grossly normal Skin: NARRATIVE SKIN EXAM: Diffuse anasarca Urinary Catheter Management^: Slater: Cath Placed During This Visit: no Reason for Continuing Indwelling Catheter: Chronic Indwelling Urinary Catheter on Admission Data : 12/02/20 04:09 12/02/20 04:09 A&P Assessment and plan (1) Anasarca: -Likely secondary to diastolic CHF, right-sided heart failure, pulmonary hypertension -has gained roughly 10 pounds in the last few days, weight on last admission was 83 kg, weight today is 98.8 kg -Echocardiogram from October 30, 2020 shows: Small left ventricular cavity size. Normal left ventricular cavity size. Left ventricular ejection fraction is estimated at 55 %. Flattened septum in diastole consistent with right ventricle volume overload. 2-Severely increased right ventricular size. Severely decreased right ventricular systolic function. Moderate pulmonary hypertension, RVSP 65 mmHg. 3-Severely increased right atrial size. 4-Moderately increased left atrial size. 5-Severely thickened mitral valve. Severe mitral annular calcification. No mitral valve stenosis. Moderate to severe mitral valve regurgitation. 6-Severe aortic valve calcification. Moderate aortic valve stenosis, mean gradient, aortic valve is not well-visualized therefore cannot assess gradient on aortic valve area however appears to be moderately stenotic. 7-Structurally normal tricuspid valve without significant stenosis or regurgitation. Pulmonary artery systolic pressure is normal. 8-There is no pericardial effusion. 9-Right atrial pressure is around 20 mm of mercury. -Urine output has improved to 1150 cc, I am awaiting morning labs Plan: -Fluid restrictions -Daily weights -Lasix 40 mg IV twice daily, metolazone daily -Start spironolactone 12.5 mg daily to monitor serum potassiums -Monitor creatinine and urine output closely -On last admission patient had SANDY secondary to diuretics, hypoperfusion, has chronic hypotension, prerenal azotemia will start slow diuretic therapy and monitor her clinical response as she has CKD Plan for today, continue diuretic therapy, get up and ambulate Status: Acute (2) Hyponatremia: Monitor sodium levels closely given diuresis, serum sodium 132 Status: Acute (3) CKD (chronic kidney disease) stage 4, GFR 15-29 ml/min: Will monitor creatinine closely,pending today Status: Chronic (4) Pulmonary hypertension: Status: Acute (5) Right heart failure: Status: Acute Qualifiers: Heart failure chronicity: acute on chronic Qualified Code(s): I50.813 - Acute on chronic right heart failure (6) Pleural effusion: Status: Acute (7) Atrial fibrillation: Continue amiodarone Xarelto on hold given thrombocytopenia Status: Acute (8) Diabetes: Low-dose sliding scale Levemir 10 units in the morning Status: Chronic (9) Diastolic CHF: Status: Acute (10) Pacemaker: Status: Acute (11) H/O tricuspid valve annuloplasty: Status: Acute (12) Status post mitral valve annuloplasty: Status: Acute (13) Urinary tract infection: -De-escalate to Bactrim -Follow urine cultures, blood cultures -CT scan of the abdomen pelvis does not show any obstructive uropathy or pyelonephritis Status: Acute (14) Chronic hypotension: -Has chronic hypotension on midodrine, -Does have a UTI -Continue midodrine for now Status: Acute (15) Cellulitis of left wrist: -X-ray of the wrist shows cellulitis, improving, de-escalate to doxycycline and Bactrim Status: Acute (16) Thrombocytopenia: -Likely secondary to fatty liver disease, and liver cirrhosis, CT scan of the abdomen shows liver irregularity suggesting liver cirrhosis, -Could be platelet clumping -For now hold Xarelto -Monitor for bleeding Status: Acute Additional A&P Information Has chronic hypotension, is on midodrine, likely related to right-sided heart failure Attestations Medical Necessity Statement*: Patient requires hospitalization, for fluid overload, diffuse anasarca secondary to diastolic CHF, right-sided heart failure, severe pulmonary hypertension, right wrist cellulitis, UTI Coding Level of Care Code Acute 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
[2020-12-03 15:36] VITALS: BP 118/67; PULSE 86; RESP 18; TEMP 36.8; O2SAT 96
[2020-12-03 16:56] LABS: Glucose Point of Care 125 mg/dL (70-110)
[2020-12-03] MEDS: sulfamethoxazole-trimeth DS 160-800 mg Tablet 1 TAB PO (19:48)
[2020-12-03] MEDS: atorvastatin 40 mg Tablet 20 MG PO (19:48)
[2020-12-03 20:00] VITALS: BP 94/60; PULSE 98; RESP 17; TEMP 36.3; O2SAT 95
[2020-12-03 21:30] LABS: Glucose Point of Care 137 mg/dL (70-110)
[2020-12-04] VITALS: BP 89/64; PULSE 83; RESP 17; TEMP 36.6; O2SAT 96
[2020-12-04 03:50] VITALS: BP 92/59; PULSE 88; RESP 18; TEMP 36.7; O2SAT 95
[2020-12-04 05:25] LABS: Basophils # 0.1 10^3/uL (0.0-0.1); Basophils % 0.8 %; Eosinophils % 0.5 %; Hematocrit 36.4 % (37.0-47.0); Hemoglobin 11.3 g/dL (11.5-15.3); Lymphocytes # 0.8 10^3/uL (0.8-4.8); Lymphocytes % 12.9 %; Mean Corpuscular Hemoglobin 25.3 pg (28.0-34.0); Mean Corpuscular Volume 81.6 fL (81-99); Monocytes # 0.6 10^3/uL (0.2-0.9); Monocytes % 10.6 %; Neutrophils % 73.7 %; Nucleated Red Blood Cells % 0 %; Platelet Count 64 10^3/cmm (130-400); Red Blood Count 4.46 10^6/uL (4.1-5.3); Red Cell Distribution Width 23.4 % (12.1-15.1)
[2020-12-04 05:54] LABS: Alanine Aminotransferase < 5 U/L (0-33); Albumin Level 2.6 g/dL (3.5-5.2); Alkaline Phosphatase 116 IU/L (35-105); Anion Gap 15.3 (5-19); Aspartate Amino Transferase 11 U/L (0-32); Blood Urea Nitrogen 36 mg/dL (8-23); Calcium 8.4 mg/dL (8.5-10.5); Carbon Dioxide 21 mmol/L (22-29); Chloride 100 mmol/L (98-107); Creatinine Clr Calc Pharmacy 37.3908; Globulin 2.9 g/dL (1.3-4.6); Glomerular Filtration Rate 30.2 mL/min (90-130); Glucose 110 mg/dL (65-115); Magnesium 1.7 mg/dL (1.7-2.3); NT Pro B Type Natriuretic Pept 12354 pg/mL (0-125); Osmolality Calculated 285 mOsm/kg (285-295); Phosphorus 2.9 mg/dL (2.5-4.5); Potassium 3.3 mmol/L (3.5-5.1); Sodium 133 mmol/L (136-145); Total Bilirubin 0.8 mg/dL (0.15-1.2); Total Protein 5.5 g/dL (6.6-8.7)
[2020-12-04] MEDS: levothyroxine 25 mcg Tablet PO (05:59)
[2020-12-04] MEDS: sulfamethoxazole-trimeth DS 160-800 mg Tablet 1 TAB PO ×2 (05:59→18:04)
[2020-12-04] MEDS: FUROsemide 10 mg/mL SDV 4mL 40 MG IVP ×2 (06:13→17:44)
[2020-12-04 07:27] LABS: Glucose Point of Care 106 mg/dL (70-110)
[2020-12-04 08:00] VITALS: BP 98/65; PULSE 101; RESP 18; TEMP 36.6; O2SAT 97
[2020-12-04] MEDS: escitalopram 10 mg Tablet 30 MG PO (08:53)
[2020-12-04] MEDS: metOLazone 5 MG Tablet PO (08:53)
[2020-12-04] MEDS: midodrine 5 mg TABLET 2.5 MG PO ×2 (08:53→20:51)
[2020-12-04] MEDS: pantoprazole DR 40 mg Tablet PO (08:54)
[2020-12-04] MEDS: spironolactone 25 mg Tablet 12.5 MG PO (08:54)
[2020-12-04] MEDS: amiodarone 200 mg Tablet PO (08:54)
[2020-12-04] MEDS: potassium chloride ER 20 mEq Tablet 40 MEQ PO (08:55)
[2020-12-04] MEDS: metoprolol tartrate 25 mg Tablet PO ×2 (08:57→20:51)
[2020-12-04 11:30] LABS: Glucose Point of Care 114 mg/dL (70-110)
[2020-12-04] MEDS: hyDROXYzine 25 mg Capsule PO (11:31)
--- NOTE | 2020-12-04 11:38 | PC.SOCIAL ---
IMM Updated Updated pt on Pg 2 IMM. No questions voiced. Provided pt a copy. Signed, dated, & timed copy in chart.
[2020-12-04 12:00] VITALS: BP 98/63; PULSE 94; RESP 18; TEMP 36.8; O2SAT 95
--- NOTE | 2020-12-04 12:18 | PM.PN ---
Subjective Subjective: Interval history: Patient was examined this morning, she was able to sit up into a chair with nursing staff yesterday, she continues to have diffuse anasarca, weeping edema of the bilateral extremities, she denies any shortness of breath, denies any chest pain, she complains of generalized fatigue, Vitals/I&O/Wt Last Vital Signs Temp 97.8 F 12/04/20 08:00 Pulse 101 H 12/04/20 08:00 Resp 18 12/04/20 08:00 BP 98/65 12/04/20 08:00 Pulse Ox 97 12/04/20 08:00 12/03/20 12/04/20 12/04/20 22:59 06:59 14:59 Intake Total 260 / 760 120 / 880 360 / 360 Output Total 1000 / 1000 1200 / 2200 Balance -740 / -240 -1080 / -1320 360 / 360 Weight last 48 hrs Weight 102.228 kg Weight 104.326 kg Physical Exam Narrative: EXAM NARRATIVE: Generalized anasarca Const: COMMON NORMALS: no acute distress and patient oriented x3 HENMT: COMMON NORMALS: normocephalic HEAD & SCALP: normocephalic Neck/C-Spine: COMMON NORMALS: no JVD Resp: COMMON NORMALS: normal respiratory effort, No retractions, No use of accessory muscles and clear to auscultation bilaterally AUSCULTATION: clear to auscultation bilaterally Cardio: COMMON NORMALS: no JVD, regular rate, regular rhythm, S1 normal heart sound present and S2 normal heart sound present RATE: regular rate RHYTHM: regular rhythm HEART SOUNDS: S1 normal heart sound present and S2 normal heart sound present GI: COMMON NORMALS: Normal to inspection, nondistended, normoactive bowel sounds present, Soft to palpation, non-tender, No hepatosplenomegaly present, no masses and no bruits PALPATION: Yes Soft to palpation and Yes No hepatosplenomegaly present Extremity: COMMON NORMALS: capillary refill normal, no clubbing, cyanosis or edema and no calf tenderness NARRATIVE EXTREMITY EXAM: 2+ pitting edema Neuro: COMMON NORMALS: patient oriented x3 Psych: COMMON NORMALS: mental status grossly normal Skin: NARRATIVE SKIN EXAM: Diffuse anasarca Urinary Catheter Management^: Slater: Cath Placed During This Visit: no Reason for Continuing Indwelling Catheter: Chronic Indwelling Urinary Catheter on Admission Data : 12/04/20 05:09 12/04/20 05:09 Micro: Microbiology 11/29/20 10:00 Blood Culture - Final Blood NO GROWTH AFTER 5 DAYS A&P Assessment and plan (1) Anasarca: -Likely secondary to diastolic CHF, right-sided heart failure, pulmonary hypertension -has gained roughly 10 pounds in the last few days, weight on last admission was 83 kg, weight today is 98.8 kg -Echocardiogram from October 30, 2020 shows: Small left ventricular cavity size. Normal left ventricular cavity size. Left ventricular ejection fraction is estimated at 55 %. Flattened septum in diastole consistent with right ventricle volume overload. 2-Severely increased right ventricular size. Severely decreased right ventricular systolic function. Moderate pulmonary hypertension, RVSP 65 mmHg. 3-Severely increased right atrial size. 4-Moderately increased left atrial size. 5-Severely thickened mitral valve. Severe mitral annular calcification. No mitral valve stenosis. Moderate to severe mitral valve regurgitation. 6-Severe aortic valve calcification. Moderate aortic valve stenosis, mean gradient, aortic valve is not well-visualized therefore cannot assess gradient on aortic valve area however appears to be moderately stenotic. 7-Structurally normal tricuspid valve without significant stenosis or regurgitation. Pulmonary artery systolic pressure is normal. 8-There is no pericardial effusion. 9-Right atrial pressure is around 20 mm of mercury. -Urine output has improved to 1150 cc, I am awaiting morning labs Plan: -Fluid restrictions -Daily weights -Lasix 40 mg IV twice daily, metolazone daily -Start spironolactone 12.5 mg daily to monitor serum potassiums -Monitor creatinine and urine output closely -On last admission patient had SANDY secondary to diuretics, hypoperfusion, has chronic hypotension, prerenal azotemia will start slow diuretic therapy and monitor her clinical response as she has CKD Plan for today, continue diuretic therapy, get up and ambulate Status: Acute (2) Hyponatremia: Monitor sodium levels closely given diuresis, serum sodium 133 Status: Acute (3) CKD (chronic kidney disease) stage 4, GFR 15-29 ml/min: Creatinine up to 1.7 today. Hypertension. Status: Chronic (4) Pulmonary hypertension: Status: Acute (5) Right heart failure: Status: Acute Qualifiers: Heart failure chronicity: acute on chronic Qualified Code(s): I50.813 - Acute on chronic right heart failure (6) Pleural effusion: Status: Acute (7) Atrial fibrillation: Continue amiodarone Xarelto on hold given thrombocytopenia Status: Acute (8) Diabetes: Low-dose sliding scale Levemir 10 units in the morning Status: Chronic (9) Diastolic CHF: Status: Acute (10) Pacemaker: Status: Acute (11) H/O tricuspid valve annuloplasty: Status: Acute (12) Status post mitral valve annuloplasty: Status: Acute (13) Urinary tract infection: -De-escalate to Bactrim -Follow urine cultures, blood cultures -CT scan of the abdomen pelvis does not show any obstructive uropathy or pyelonephritis Status: Acute (14) Chronic hypotension: -Has chronic hypotension on midodrine, -Does have a UTI -Continue midodrine for now Status: Acute (15) Cellulitis of left wrist: -X-ray of the wrist shows cellulitis, improving, de-escalate to doxycycline and Bactrim Status: Acute (16) Thrombocytopenia: -Likely secondary to fatty liver disease, and liver cirrhosis, CT scan of the abdomen shows liver irregularity suggesting liver cirrhosis, -For now hold Xarelto -Monitor for bleeding -SCDs for DVT prophylaxis Status: Acute Additional A&P Information Has chronic hypotension, is on midodrine, likely related to right-sided heart failure Attestations Medical Necessity Statement*: Patient requires hospitalization for generalized anasarca requiring IV diuresis, cellulitis of the left wrist, UTI, thrombocytopenia Coding Level of Care Code 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
[2020-12-04 16:00] VITALS: BP 88/59; PULSE 105; RESP 18; TEMP 36.4; O2SAT 94
[2020-12-04 17:27] LABS: Glucose Point of Care 99 mg/dL (70-110)
[2020-12-04 20:00] VITALS: BP 92/60; PULSE 97; RESP 17; TEMP 37; O2SAT 94
[2020-12-04] MEDS: atorvastatin 40 mg Tablet 20 MG PO (20:53)
[2020-12-04 21:04] LABS: Glucose Point of Care 117 mg/dL (70-110)
[2020-12-04] MEDS: LORazepam 2 mg/mL INJ 1 mL 0.5 MG IVP (23:46)
[2020-12-05] VITALS: BP 91/64; PULSE 92; RESP 16; TEMP 37; O2SAT 98
[2020-12-05 04:00] VITALS: BP 101/72; PULSE 103; RESP 17; TEMP 36.9; O2SAT 95
[2020-12-05 04:53] LABS: Basophils # 0.1 10^3/uL (0.0-0.1); Basophils % 0.8 %; Eosinophils % 0.5 %; Hematocrit 37.2 % (37.0-47.0); Hemoglobin 11.6 g/dL (11.5-15.3); Lymphocytes # 0.9 10^3/uL (0.8-4.8); Lymphocytes % 13.6 %; Mean Corpuscular HGB Conc 31.2 g/dL (30.0-36.0); Mean Corpuscular Hemoglobin 25.3 pg (28.0-34.0); Mean Corpuscular Volume 81.2 fL (81-99); Monocytes # 0.7 10^3/uL (0.2-0.9); Monocytes % 10.3 %; Neutrophils # 4.77 10^3/uL (1.8-7.7); Neutrophils % 73.6 %; Nucleated Red Blood Cells % 0 %; Platelet Count 76 10^3/cmm (130-400); Red Blood Count 4.58 10^6/uL (4.1-5.3); Red Cell Distribution Width 23.5 % (12.1-15.1); White Blood Count 6.5 10^3/uL (4.0-10.0)
[2020-12-05 04:55] LABS: Mean Platelet Volume 11.5 fL (7.4-10.4)
[2020-12-05 05:24] LABS: Alanine Aminotransferase < 5 U/L (0-33); Albumin Level 2.6 g/dL (3.5-5.2); Alkaline Phosphatase 119 IU/L (35-105); Aspartate Amino Transferase 14 U/L (0-32); Blood Urea Nitrogen 35 mg/dL (8-23); Calcium 8.1 mg/dL (8.5-10.5); Carbon Dioxide 22 mmol/L (22-29); Chloride 98 mmol/L (98-107); Globulin 2.7 g/dL (1.3-4.6); Glomerular Filtration Rate 30.2 mL/min (90-130); Glucose 88 mg/dL (65-115); Magnesium 1.6 mg/dL (1.7-2.3); NT Pro B Type Natriuretic Pept 10069 pg/mL (0-125); Osmolality Calculated 281 mOsm/kg (285-295); Phosphorus 2.7 mg/dL (2.5-4.5); Sodium 132 mmol/L (136-145); Total Bilirubin 0.7 mg/dL (0.15-1.2); Total Protein 5.3 g/dL (6.6-8.7)
[2020-12-05] MEDS: FUROsemide 10 mg/mL SDV 4mL 40 MG IVP ×3 (05:25→17:50)
[2020-12-05 05:42] LABS: Anion Gap 15.6 (5-19); Potassium 3.6 mmol/L (3.5-5.1)
[2020-12-05 06:42] LABS: Glucose Point of Care 96 mg/dL (70-110)
[2020-12-05] MEDS: levothyroxine 25 mcg Tablet PO (06:47)
[2020-12-05] MEDS: sulfamethoxazole-trimeth DS 160-800 mg Tablet 1 TAB PO ×2 (06:47→18:09)
[2020-12-05 08:00] VITALS: BP 105/72; PULSE 109; RESP 18; TEMP 36.7; O2SAT 96
[2020-12-05] MEDS: metOLazone 5 MG Tablet PO (08:48)
[2020-12-05] MEDS: amiodarone 200 mg Tablet PO (08:48)
[2020-12-05] MEDS: metoprolol tartrate 25 mg Tablet PO ×2 (08:48→20:41)
[2020-12-05] MEDS: spironolactone 25 mg Tablet 12.5 MG PO (08:48)
[2020-12-05] MEDS: potassium chloride ER 20 mEq Tablet 40 MEQ PO (08:48)
[2020-12-05] MEDS: escitalopram 10 mg Tablet 30 MG PO (08:49)
[2020-12-05] MEDS: midodrine 5 mg TABLET 2.5 MG PO ×2 (08:49→20:41)
[2020-12-05] MEDS: pantoprazole DR 40 mg Tablet PO (08:49)
[2020-12-05] MEDS: magnesium oxide 400 mg tablet PO ×2 (08:51→17:50)
[2020-12-05 11:23] LABS: Glucose Point of Care 120 mg/dL (70-110)
[2020-12-05 12:00] VITALS: BP 101/65; PULSE 97; RESP 20; TEMP 37.1; O2SAT 95
--- NOTE | 2020-12-05 12:57 | PM.PN ---
Subjective Subjective: Interval history: This morning patient was examined, patient's appetite has decreased, she is now willing to eat, has generalized fatigue, is not willing to participate in physical therapy, is not willing to move, just wants to be left alone, this morning when asked her if she feels down depressed and sad, she tells me yes, she admits that she has had thoughts of hurting herself, but not very specific, no active ideation, no thoughts of hurting others, Vitals/I&O/Wt Last Vital Signs Temp 98.1 F 12/05/20 08:00 Pulse 109 H 12/05/20 08:00 Resp 18 12/05/20 08:00 BP 105/72 12/05/20 08:00 Pulse Ox 96 12/05/20 08:00 12/04/20 12/05/20 12/05/20 22:59 06:59 14:59 Intake Total 600 / 970 480 / 480 Output Total 1100 / 1100 Balance 600 / 970 -1100 / -130 480 / 480 Weight last 48 hrs Weight 100.698 kg Weight 102.228 kg Physical Exam Narrative: EXAM NARRATIVE: Generalized anasarca Const: COMMON NORMALS: no acute distress and patient oriented x3 HENMT: COMMON NORMALS: normocephalic HEAD & SCALP: normocephalic Neck/C-Spine: COMMON NORMALS: no JVD Resp: COMMON NORMALS: normal respiratory effort, No retractions, No use of accessory muscles and clear to auscultation bilaterally AUSCULTATION: clear to auscultation bilaterally Cardio: COMMON NORMALS: no JVD, regular rate, regular rhythm, S1 normal heart sound present and S2 normal heart sound present RATE: regular rate RHYTHM: regular rhythm HEART SOUNDS: S1 normal heart sound present and S2 normal heart sound present GI: COMMON NORMALS: Normal to inspection, nondistended, normoactive bowel sounds present, Soft to palpation, non-tender, No hepatosplenomegaly present, no masses and no bruits PALPATION: Yes Soft to palpation and Yes No hepatosplenomegaly present Extremity: COMMON NORMALS: normal to inspection, full ROM, capillary refill normal, no clubbing, cyanosis or edema, no calf tenderness and no pedal edema NARRATIVE EXTREMITY EXAM: 2+ pitting edema Neuro: COMMON NORMALS: patient oriented x3 Psych: ATTITUDE: Yes calm MOOD & AFFECT: Yes sad THOUGHT CONTENT: Yes Suicidality present, No Homicidality present, No delusions and No Hallucination(s) present Skin: NARRATIVE SKIN EXAM: Diffuse anasarca Urinary Catheter Management^: Slater: Cath Placed During This Visit: no Reason for Continuing Indwelling Catheter: Acute Urinary Retention or Obstruction Data : 12/05/20 04:32 12/05/20 04:32 Micro: Microbiology 11/29/20 14:00 Blood Culture - Final Blood NO GROWTH AFTER 5 DAYS 11/29/20 10:00 Blood Culture - Final Blood NO GROWTH AFTER 5 DAYS A&P Assessment and plan (1) Anasarca: -Likely secondary to diastolic CHF, right-sided heart failure, pulmonary hypertension -has gained roughly 10 pounds in the last few days, weight on last admission was 83 kg, weight today is 98.8 kg -Echocardiogram from October 30, 2020 shows: Small left ventricular cavity size. Normal left ventricular cavity size. Left ventricular ejection fraction is estimated at 55 %. Flattened septum in diastole consistent with right ventricle volume overload. 2-Severely increased right ventricular size. Severely decreased right ventricular systolic function. Moderate pulmonary hypertension, RVSP 65 mmHg. 3-Severely increased right atrial size. 4-Moderately increased left atrial size. 5-Severely thickened mitral valve. Severe mitral annular calcification. No mitral valve stenosis. Moderate to severe mitral valve regurgitation. 6-Severe aortic valve calcification. Moderate aortic valve stenosis, mean gradient, aortic valve is not well-visualized therefore cannot assess gradient on aortic valve area however appears to be moderately stenotic. 7-Structurally normal tricuspid valve without significant stenosis or regurgitation. Pulmonary artery systolic pressure is normal. 8-There is no pericardial effusion. 9-Right atrial pressure is around 20 mm of mercury. -Urine output has improved to 2200 cc, I am awaiting morning labs Plan: -Fluid restrictions -Daily weights -Lasix 40 mg IV every 8 hours, metolazone daily -Start spironolactone 12.5 mg daily to monitor serum potassiums -Monitor creatinine and urine output closely -On last admission patient had SANDY secondary to diuretics, hypoperfusion, has chronic hypotension, prerenal azotemia will start slow diuretic therapy and monitor her clinical response as she has CKD Plan for today, continue diuretic therapy, get up and ambulate, given suicidal ideation we will have Dr. Gilman see patient, currently not a danger to herself, she does not have current active ideation, no current plan Status: Acute (2) Hyponatremia: Monitor sodium levels closely given diuresis, serum sodium 132 Status: Acute (3) CKD (chronic kidney disease) stage 4, GFR 15-29 ml/min: Creatinine up to 1.7 today. Hypertension. Status: Chronic (4) Pulmonary hypertension: Status: Acute (5) Right heart failure: Status: Acute Qualifiers: Heart failure chronicity: acute on chronic Qualified Code(s): I50.813 - Acute on chronic right heart failure (6) Pleural effusion: Status: Acute (7) Atrial fibrillation: Continue amiodarone Xarelto on hold given thrombocytopenia Status: Acute (8) Diabetes: Low-dose sliding scale Levemir 10 units in the morning Status: Chronic (9) Diastolic CHF: Status: Acute (10) Pacemaker: Status: Acute (11) H/O tricuspid valve annuloplasty: Status: Acute (12) Status post mitral valve annuloplasty: Status: Acute (13) Urinary tract infection: -De-escalate to Bactrim -Follow urine cultures, blood cultures -CT scan of the abdomen pelvis does not show any obstructive uropathy or pyelonephritis Status: Acute (14) Chronic hypotension: -Has chronic hypotension on midodrine, -Does have a UTI -Continue midodrine for now Status: Acute (15) Cellulitis of left wrist: -X-ray of the wrist shows cellulitis, improving, de-escalate to doxycycline and Bactrim Status: Acute (16) Thrombocytopenia: -Likely secondary to fatty liver disease, and liver cirrhosis, CT scan of the abdomen shows liver irregularity suggesting liver cirrhosis, -For now hold Xarelto -Monitor for bleeding -SCDs for DVT prophylaxis Status: Acute (17) Suicidal ideation: -Has suicidal ideation, no active ideation, no plan -We will have Dr. 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
--- NOTE | 2020-12-05 13:39 | PC.NURSE ---
Patient yelling a woman's name repeatedly instead of using her call light. Patient has been educated several times on the use of her call light. When this nurse entered patient's room to see what she needed. Patient stated that she needed her meds . When this nurse asked for mor clarification as to what kind of medication she was wanting patient stated the knockout medicine . I explained to patient that I had no medication due to be given to her at this time and that if she was wanting something to make her sleep that she probably wouldn't be able to get any medication for that reason until bedtime tonight. Patient became upset and stated it is nighttime ! Patient was reoriented to time of day. Patient then stated that she just needed to get off her behind because it's burning. I want up in my hoist! I told patient that if her bottom was hurting that she needed to get off of her bottom and lay on her side so getting up in her hoist to be put in the recliner wouldn't take any pressure off of her bottom. Patient refused to be repositioned and stated just leave me alone
[2020-12-05 16:00] VITALS: BP 102/66; PULSE 97; RESP 18; TEMP 36.7; O2SAT 94
[2020-12-05 18:08] LABS: Glucose Point of Care 135 mg/dL (70-110)
[2020-12-05 19:59] VITALS: BP 106/70; PULSE 106; RESP 18; TEMP 36.8; O2SAT 97
[2020-12-05] MEDS: atorvastatin 40 mg Tablet 20 MG PO (20:41)
--- NOTE | 2020-12-05 20:56 | P.CONIM_ITS ---
Providers/Reason for Consult Consulting Physican/Specialty*: Denver Gilman MD. Psychiatry. Reason for Consult*: Evaluation for ongoing psychiatric needs. Attending Physician: Praveen Perry MD Primary Care Provider: Heather Núñez MD Psych Consult HPI History of Present Illness Lizzie Pro is a 65 year old female who presented to the emergency department with the following report: Chief complaint: General Medical Stated complaint: EDEMA, ABN LABS Time Seen by Provider: 11/29/20 09:36 History of Present Illness: HPI narrative: 65-year-old female who presented to the emergency room via EMS. She was hospitalized at the end of last month through the of this month and then discharged to the [facility]. She has severe chronic kidney disease as well as congestive heart failure. She was not able to manage at home and was discharged to the [facility]. She had previously been on Xarelto Xarelto was stopped. She has a history of diabetes mellitus as well. Today she presents complaining of shortness of breath generalized weaknessPeripheral edema extending to the level of the chest involving theHypotension and severe both the arms and the legs. Her left wrist especially is exquisitely tender and is red in appearance. IV sticks prior to arrival at the hospital by EMS were unsuccessful and are currently leaking serous fluid from her arms. She reports severe orthopnea which is not new for her. She denies any chest pain at this time. 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 Onset (ago): day(s) Associated symptoms: Reports dyspnea, short of breath and weakness; Deny chest pain, confusion, cough, diaphoresis, decreased appetite, fevers/chills, headache(s), malaise, nausea, rash, palpitations, seizures, syncope or vomiting. He was admitted to [facility] for definitive treatment of those issues. While on MedSur in significant discomfort he did endorse wishing she could just which prompted a psychiatric consult. Lizzie is known to this investment underwriter through previous encounters at the end of last year. She presents today as a fairly limited historian reporting that she is feeling pretty miserable. She denies the itching that she had continue to report previously but just reports she cannot get comfortable and she just wants to sleep and they get so overwhelming that she does think about . She presents with a fairly significant CHF patient with significant fluid notable between the last time I saw her and how she presents today. The main concern she had was about being able to rest and according to the nurse available it is reported that she did well with Ativan previously. We discussed the risks benefits and alternatives of using Ativan again if sleep were difficult and using Haldol if irritability and agitation were a significant part of her nighttime presentation, and she understood and agreed to proceed as is documented in this note. We reviewed her recent hospitalization where there was a psychiatric consult on 11/01/2020. An excerpt is included below for context and she endorses no substantive changes since that evaluation. Per [place] [facility] [place] History of Present Illness Lizzie Pro is a 65 year old female who presented to the emergency department with the following report: Chief complaint: Weakness Stated complaint: GENERALIZED WEAKNESS/ HYPOTENSION Time Seen by Provider: 10/28/20 10:31 History of Present Illness: HPI Narrative: 65-year-old female presents to [facility] emergency room with a complaint of generally not feeling well and being weak. She was hospitalized last month with some pretty profound hypoglycemia. Ultimately she was discharged and has been at home. She tells me she is not able to get up get out of bed to go to the restroom or get herself anything to eat or drink she has family members that stop by to help but they are only able to stop by 2 or 3 times a week. She is profoundly weak unable to reposition herself in bed. She denies any pain number no chest pain abdominal pain no dysuria urgency or frequency did find some bruising on her right hip area initial blood sugar when she arrived was 198. She denies fever sweats chills cough or flulike symptoms. MD Complaint: generalized weakness Onset (ago): week(s) Duration: constant Location: generalized Migration: none Severity: severe Relieving factors: none Exacerbating factors: none Context: history of similar Associated symptoms: Reports decreased appetite and myalgias; Denies chest pain, chills, confusion, melena, diaphoresis, dysuria, easy bruising, fever(s), headache(s), nausea, rash, short of breath, syncope or vomiting. She was admitted to the [facility] then ICU for definitive treatment of those issues. Significant concern was raised about her low energy and limited engagement in her treatment and circumstances. A psychiatric consult was requested to explore the situation. Lizzie presents today reporting that she has at times struggle with anxiety in her life and was reportedly on the medication that she does not recall the name and I do not see in her med list. She denies ever being on an antidepressant and initially said she was not interested in taking any pills for depression. However during our interview her [id number] arrived and was a great source of support for Lizzie. She agreed that her [id number] could remain in the room as this investment underwriter continued to ask questions. What was shared was that chiquita has had a full and productive life however she is never and never had children. She had a very robust work life for some time. They report that about 7 years ago her mother and I was really tough for her as she spent a lot of her free time interacting with her mom. They report that she had been doing fairly well until recently she started having periods of low mood. According to [id number] there had been a point that they even discussed her seeing someone and possibly being started on an antidepressant but that never really occurred. We discussed the risks, benefits and alternatives of initiating Lexapro and she understood and agreed to proceed as is documented in this note. Psychiatric history: As above. She denies any inpatient hospitalizations or significant follow-up. Substance abuse history: They deny any significant or contributory history. Developmental history: She denies any issues with or delivery, reports of she learned to walk and talk and met her developmental milestones on time, and denies any significant issues with need for speech therapy, learning support, emotional support or special education classes. Psychosocial history: She reports that her mother and father were together and that there were four children born to the family union. They endorse that her childhood was without incident: No emotional, physical or sexual abuse was identified. She graduated from high school. They denied any significant romantic relationships. She was never , she never had children, she never been in the but there was a denominational belief system/Zoroastrianism reported. 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 She currently lives in a house alone when she is done for some time. Legal history: She is never had any retirement or significant legal peril. Meds Current Medications: Current Medications Generic Name Dose Route Start Last Admin Trade Name Freq PRN Reason Stop Dose Admin Acetaminophen 650 mg 11/29/20 17:04 12/02/20 16:02 Acetaminophen 32 5 Mg Tablet PO 650 mg Q6H PRN Administration Mild/Mod Pain Or Temp >/= 101 Amiodarone HCl 200 mg 11/30/20 08:00 12/05/20 08:48 Amiodarone 200 M g Tablet PO 200 mg DAILY@0800 [facility] Administration Atorvastatin Calci um 20 mg 11/29/20 20:00 12/05/20 20:41 Atorvastatin 40 Mg Tablet PO 20 mg DAILY@1999 [facility] Administration Escitalopram Oxala te 30 mg 11/30/20 08:00 12/05/20 08:49 Escitalopram 10 Mg Tablet PO 30 mg DAILY@08 [facility] Administration Furosemide 40 mg 12/05/20 08:31 12/05/20 17:50 Furosemide 10 Mg /Ml Sdv 4ml IVP 40 mg Q8H [facility] Administration Hydroxyzine Pamoat e 25 mg 11/29/20 17:04 12/04/20 11:31 Hydroxyzine 25 M g Capsule PO 25 mg TID PRN Administration Itching Insulin Aspart 0 unit 11/29/20 18:00 12/05/20 17:48 Insulin Aspart 1 00 Unit/1 Ml SUBCUT [facility] Insulin Detemir 10 unit 11/30/20 06:00 12/05/20 06:53 Insulin Detemir 100 Units/1 Ml SUBCUT Not Given DAILY@0600 [facility] Levothyroxine Sodi um 25 mcg 12/01/20 06:00 12/05/20 06:47 Levothyroxine 25 Mcg Tablet PO 25 mcg QAM [facility] Administration Magnesium Oxide 400 mg 12/05/20 09:00 12/05/20 17:50 Magnesium Oxide 400 Mg Tablet PO 12/06/20 08:59 400 mg BID [facility] Administration Metolazone 5 mg 11/30/20 09:55 12/05/20 08:48 Metolazone 5 Mg Tablet PO 5 mg DAILY [facility] Administration Metoprolol Tartrat e 25 mg 11/29/20 20:00 12/05/20 20:41 Metoprolol Tartr ate 25 Mg Tablet PO 25 mg BID@ [facility] Administration Midodrine 2.5 mg 11/29/20 20:00 12/05/20 20:41 Midodrine 5 Mg T ablet PO 2.5 mg BID@ [facility] Administration Non-Formulary Medi cation 1 applic 11/30/20 09:00 12/05/20 08:49 Honey [Medihoney (Honey)] TOPICAL Not Given DAILY [facility] Pantoprazole Sodiu m 40 mg 11/30/20 08:00 12/05/20 08:[address] 40 Mg Tablet PO 40 mg DAILY@0800 [facility] Administration Potassium Chloride 40 meq 12/02/20 12:40 12/05/20 08:48 Potassium Chlori de Er 20 Meq Table t PO 40 meq DAILY [facility] Administration Rivaroxaban 15 mg 11/30/20 08:00 11/30/20 08:01 Rivaroxaban 10 M g Tablet PO 15 mg DAILY@0800 [facility] Administration Spironolactone 12.5 mg 11/29/20 17:04 12/05/20 08:48 Spironolactone 2 5 Mg Tablet PO 12.5 mg DAILY [facility] Administration Trimethoprim/Sulfa methoxazole 1 tab 12/03/20 19:00 12/05/20 18:09 Sulfamethoxazole -Trimeth Ds 160-80 0 Mg Tablet PO 1 tab Q12H [facility] Administration Protocol PFSH NPU PFSH: Medical History Anemia, chronic disease Atrial fibrillation CHF (congestive heart failure) CKD (chronic kidney disease) stage 4, GFR 15-29 ml/min Coronary artery disease Diabetes HTN (hypertension) Morbid obesity Pacemaker Surgical History H/O tricuspid valve annuloplasty Hx of CABG S/P cholecystectomy S/P left atrial appendage ligation S/P Maze operation for atrial fibrillation Status post mitral valve annuloplasty Family History Other CAD (coronary artery disease) Diabetes Social History Smoking and tobacco status: never smoked Alcohol intake: never Lives independently: Yes Marital status: Single Mental Status Exam MSE Comments: This is an obese female in the hospital gown with limited grooming and eye contact. No abnormal movements except for psychomotor retardation. Mostly cooperative with exam in mild to moderate distress. Speech was somewhat frantic sounding in normal rate decreased volume. Mood described as depressed, affect flustered. Thought process organized. Thought content: Patient denied homicidal ideation but endorsed suicidal ideation more consistent with passive wish. Vitals/I&O/Wt Last Vital Signs Temp 98.2 F 12/05/20 19:59 Pulse 106 H 12/05/20 19:59 Resp 18 12/05/20 19:59 BP 106/70 12/05/20 19:59 Pulse Ox 97 12/05/20 19:59 12/05/20 12/05/20 12/05/20 06:59 14:59 22:59 Intake Total 480 / 480 120 / 600 Output Total 1100 / 1100 600 / 600 Balance -1100 / -130 480 / 480 -480 / 0 Weight last 48 hrs Weight 100.698 kg Weight 102.228 kg Physical Exam Urinary Catheter Management^: Slater: Cath Placed During This Visit: no Reason for Continuing Indwelling Catheter: Chronic Indwelling Urinary Catheter on Admission A&P Additional A&P Information (1) Anemia: (2) Hyponatremia: (3) Metabolic acidosis: (4) Acute kidney injury superimposed on chronic kidney disease: (5) Generalized weakness: (6) CKD (chronic kidney disease) stage 4, GFR 15-29 ml/min: (7) Hypokalemia: (8) Fungal skin disease: (9) Pleural effusion: (10) Atrial fibrillation: (11) Hypoglycemia: (12) Hyperkalemia: (13) Status post mitral valve annuloplasty: (14) H/O tricuspid valve annuloplasty: (15) Pacemaker: (16) Diabetes: (17) HTN (hypertension): (18) CHF (congestive heart failure): (19) Hypoxia: (20) Pneumonia: (21) SANDY (acute kidney injury): (22) Hypotension: (23) UTI (urinary tract infection): (24) Elevated d-dimer: (25) Depression: (26) Anxiety: This is a 65-year-old white female with a long history of multiple medical comorbidities who presents with some history of anxiety and depression with worsening recently reporting an openness to initiate an antidepressant. 1. Continue current medication. Agree with comfort meds for sleep up to 1 mg of Ativan by mouth daily at bedtime and give 1 mg by mouth twice a day for anxiety. Additionally can give 5 mg of Haldol daily at bedtime for agitation at night otherwise twice a day. 2. No clear indication for inpatient psychiatric treatment. Clearly seems to be more misery with her situation and wishing she wasn't in the struggle than active suicidal thinking. 3. We'll continue to follow. Attestations NPU Medical Necessity Statement*: N/A. Please see primary care note for medical necessity. Coding Level of Care Code Acute Painting Supervisor for Braeden Kuhn
[2020-12-05 21:57] LABS: Glucose Point of Care 113 mg/dL (70-110)
[2020-12-06 00:29] VITALS: BP 99/65; PULSE 101; RESP 18; TEMP 36.4; O2SAT 95
[2020-12-06] MEDS: FUROsemide 10 mg/mL SDV 4mL 40 MG IVP ×3 (01:51→17:41)
[2020-12-06] MEDS: LORazepam 1 mg Tablet PO ×2 (02:52→20:57)
[2020-12-06 04:59] VITALS: BP 96/66; PULSE 93; RESP 18; TEMP 36.6; O2SAT 93
[2020-12-06 05:26] LABS: Basophils # 0.1 10^3/uL (0.0-0.1); Basophils % 0.8 %; Eosinophils % 0.3 %; Hematocrit 36.1 % (37.0-47.0); Hemoglobin 11.5 g/dL (11.5-15.3); Lymphocytes # 0.9 10^3/uL (0.8-4.8); Lymphocytes % 14.6 %; Mean Corpuscular HGB Conc 31.9 g/dL (30.0-36.0); Mean Corpuscular Volume 81.5 fL (81-99); Monocytes # 0.6 10^3/uL (0.2-0.9); Monocytes % 10.2 %; Neutrophils # 4.58 10^3/uL (1.8-7.7); Neutrophils % 72.8 %; Nucleated Red Blood Cells % 0 %; Platelet Count 82 10^3/cmm (130-400); Red Blood Count 4.43 10^6/uL (4.1-5.3); Red Cell Distribution Width 23.4 % (12.1-15.1); White Blood Count 6.3 10^3/uL (4.0-10.0)
[2020-12-06 06:04] LABS: NT Pro B Type Natriuretic Pept 10784 pg/mL (0-125)
[2020-12-06] MEDS: sulfamethoxazole-trimeth DS 160-800 mg Tablet 1 TAB PO ×2 (06:11→18:04)
[2020-12-06] MEDS: levothyroxine 25 mcg Tablet PO (06:11)
[2020-12-06 06:22] LABS: Alanine Aminotransferase < 5 U/L (0-33); Albumin Level 2.6 g/dL (3.5-5.2); Alkaline Phosphatase 121 IU/L (35-105); Blood Urea Nitrogen 34 mg/dL (8-23); Calcium 8.4 mg/dL (8.5-10.5); Carbon Dioxide 21 mmol/L (22-29); Chloride 95 mmol/L (98-107); Globulin 3.1 g/dL (1.3-4.6); Glomerular Filtration Rate 34.9 mL/min (90-130); Glucose 119 mg/dL (65-115); Magnesium 1.7 mg/dL (1.7-2.3); Osmolality Calculated 281 mOsm/kg (285-295); Phosphorus 2.6 mg/dL (2.5-4.5); Sodium 131 mmol/L (136-145); Total Bilirubin 0.8 mg/dL (0.15-1.2); Total Protein 5.7 g/dL (6.6-8.7)
[2020-12-06 06:27] LABS: Anion Gap 18.6 (5-19); Aspartate Amino Transferase 16 U/L (0-32); Potassium 3.6 mmol/L (3.5-5.1)
[2020-12-06 07:01] LABS: Glucose Point of Care 104 mg/dL (70-110)
[2020-12-06 07:13] LABS: Slide Review Slide Review Perform
[2020-12-06 07:15] VITALS: BP 110/74; PULSE 102; RESP 18; TEMP 36.6; O2SAT 94
[2020-12-06] MEDS: escitalopram 10 mg Tablet 30 MG PO (09:04)
[2020-12-06] MEDS: midodrine 5 mg TABLET 2.5 MG PO ×2 (09:04→20:35)
[2020-12-06] MEDS: pantoprazole DR 40 mg Tablet PO (09:06)
[2020-12-06] MEDS: potassium chloride ER 20 mEq Tablet 40 MEQ PO (09:06)
[2020-12-06] MEDS: metoprolol tartrate 25 mg Tablet PO ×2 (09:07→20:35)
[2020-12-06] MEDS: spironolactone 25 mg Tablet 12.5 MG PO (09:07)
[2020-12-06] MEDS: amiodarone 200 mg Tablet PO (09:07)
[2020-12-06] MEDS: metOLazone 5 MG Tablet PO (09:08)
--- NOTE | 2020-12-06 09:58 | PC.SOCIAL ---
IMM Update Pg. 2 of IMM updated and reviewed with patient. Copy provided to patient.
[2020-12-06 11:10] LABS: Glucose Point of Care 94 mg/dL (70-110)
[2020-12-06 11:30] VITALS: BP 100/66; PULSE 101; RESP 18; TEMP 37.2; O2SAT 92
--- NOTE | 2020-12-06 12:01 | PM.PN ---
Subjective Subjective: Interval history: This morning patient was examined, she denies any suicidal ideation, denies depression, continues to participate in physical therapy, has poor oral intake, is diuresing well Vitals/I&O/Wt Last Vital Signs Temp 98.9 F 12/06/20 11:30 Pulse 101 H 12/06/20 11:30 Resp 18 12/06/20 11:30 BP 100/66 12/06/20 11:30 Pulse Ox 92 12/06/20 11:30 12/05/20 12/06/20 12/06/20 22:59 06:59 14:59 Intake Total 120 / 600 Output Total 600 / 600 900 / 1500 Balance -480 / 0 -900 / -900 Weight last 48 hrs Weight 97.25 kg Weight 100.698 kg Physical Exam Const: COMMON NORMALS: no acute distress and patient oriented x3 HENMT: COMMON NORMALS: normocephalic HEAD & SCALP: normocephalic Neck/C-Spine: COMMON NORMALS: no JVD Resp: COMMON NORMALS: normal respiratory effort, No retractions, No use of accessory muscles and clear to auscultation bilaterally AUSCULTATION: clear to auscultation bilaterally Cardio: COMMON NORMALS: no JVD, regular rate, regular rhythm, S1 normal heart sound present and S2 normal heart sound present RATE: regular rate RHYTHM: regular rhythm HEART SOUNDS: S1 normal heart sound present and S2 normal heart sound present GI: COMMON NORMALS: Normal to inspection, nondistended, normoactive bowel sounds present, Soft to palpation, non-tender, No hepatosplenomegaly present, no masses and no bruits PALPATION: Yes Soft to palpation and Yes No hepatosplenomegaly present Extremity: COMMON NORMALS: capillary refill normal, no clubbing, cyanosis or edema and no calf tenderness NARRATIVE EXTREMITY EXAM: 1+ pitting edema Neuro: COMMON NORMALS: patient oriented x3 Psych: COMMON NORMALS: mental status grossly normal Urinary Catheter Management^: Slater: Cath Placed During This Visit: no Reason for Continuing Indwelling Catheter: Acute Urinary Retention or Obstruction Data : 12/06/20 04:37 12/06/20 04:37 A&P Assessment and plan (1) Anasarca: -Likely secondary to diastolic CHF, right-sided heart failure, pulmonary hypertension -has gained roughly 10 pounds in the last few days, weight on last admission was 83 kg, weight today is 98.8 kg -Echocardiogram from October 30, 2020 shows: Small left ventricular cavity size. Normal left ventricular cavity size. Left ventricular ejection fraction is estimated at 55 %. Flattened septum in diastole consistent with right ventricle volume overload. 2-Severely increased right ventricular size. Severely decreased right ventricular systolic function. Moderate pulmonary hypertension, RVSP 65 mmHg. 3-Severely increased right atrial size. 4-Moderately increased left atrial size. 5-Severely thickened mitral valve. Severe mitral annular calcification. No mitral valve stenosis. Moderate to severe mitral valve regurgitation. 6-Severe aortic valve calcification. Moderate aortic valve stenosis, mean gradient, aortic valve is not well-visualized therefore cannot assess gradient on aortic valve area however appears to be moderately stenotic. 7-Structurally normal tricuspid valve without significant stenosis or regurgitation. Pulmonary artery systolic pressure is normal. 8-There is no pericardial effusion. 9-Right atrial pressure is around 20 mm of mercury. -Urine output has improved to 2200 cc, I am awaiting morning labs Plan: -Fluid restrictions -Daily weights -Lasix 40 mg IV every 8 hours, metolazone daily - spironolactone 12.5 mg daily to monitor serum potassiums -Monitor creatinine and urine output closely -On last admission patient had SANDY secondary to diuretics, hypoperfusion, has chronic hypotension, prerenal azotemia will start slow diuretic therapy and monitor her clinical response as she has CKD Plan for today, continue diuretic therapy, get up and ambulate, given suicidal ideation we will have Dr. Gilman see patient, currently not a danger to herself, she does not have current active ideation, no current plan, will speak to family members Status: Acute (2) Hyponatremia: Monitor sodium levels closely given diuresis, serum sodium 132 Status: Acute (3) CKD (chronic kidney disease) stage 4, GFR 15-29 ml/min: Creatinine up to 1.7 today. Hypertension. Status: Chronic (4) Pulmonary hypertension: Status: Acute (5) Right heart failure: Status: Acute Qualifiers: Heart failure chronicity: acute on chronic Qualified Code(s): I50.813 - Acute on chronic right heart failure (6) Pleural effusion: Status: Acute (7) Atrial fibrillation: Continue amiodarone Xarelto on hold given thrombocytopenia Status: Acute (8) Diabetes: Low-dose sliding scale Levemir 10 units in the morning Status: Chronic (9) Diastolic CHF: Status: Acute (10) Pacemaker: Status: Acute (11) H/O tricuspid valve annuloplasty: Status: Acute (12) Status post mitral valve annuloplasty: Status: Acute (13) Urinary tract infection: -De-escalate to Bactrim -Follow urine cultures, blood cultures -CT scan of the abdomen pelvis does not show any obstructive uropathy or pyelonephritis Status: Acute (14) Chronic hypotension: -Has chronic hypotension on midodrine, -Does have a UTI -Continue midodrine for now Status: Acute (15) Cellulitis of left wrist: -X-ray of the wrist shows cellulitis, improving, de-escalate to doxycycline and Bactrim Status: Acute (16) Thrombocytopenia: -Likely secondary to fatty liver disease, and liver cirrhosis, CT scan of the abdomen shows liver irregularity suggesting liver cirrhosis, -For now hold Xarelto -Monitor for bleeding -SCDs for DVT prophylaxis Status: Acute (17) Suicidal ideation: -Has suicidal ideation, no active ideation, no plan -We will have Dr. Gilman see patient -Also has poor appetite, decreased willingness to participate in activities, does not want to do physical therapy, does not want to move Status: Acute Additional A&P Information Has chronic hypotension, is on midodrine, likely related to right-sided heart failure Attestations Medical Necessity Statement*: Patient requires hospitalization for diffuse anasarca, diastolic CHF, requiring inpatient diuresis, suicidal ideation, cellulitis UTI improved, thrombocytopenia Coding Level of Care Code Acute Food Production Associate for [facility] Diagnoses Anasarca R60.1 Hyponatremia E87.1 CKD (chronic kidney disease) stage 4, GFR 15-29 ml/min N18.4 Pulmonary hypertension I27.20 Right heart failure I50.813 Heart failure chronicity: acute on chronic Pleural effusion J90 Atrial fibrillation I48.91 Diabetes E11.9 Diastolic CHF I50.30 Pacemaker Z95.0 H/O tricuspid valve annuloplasty Z98.890 Status post mitral valve annuloplasty Z98.890 Urinary tract infection N39.0 Chronic hypotension I95.89 Cellulitis of left wrist L03.114 Thrombocytopenia D69.6 Suicidal ideation R45.851
[2020-12-06 16:00] VITALS: BP 95/60; PULSE 102; RESP 18; TEMP 36.6; O2SAT 95
[2020-12-06 17:24] LABS: Glucose Point of Care 77 mg/dL (70-110)
[2020-12-06 20:18] VITALS: BP 96/64; PULSE 106; RESP 18; TEMP 37; O2SAT 93
--- NOTE | 2020-12-06 20:25 | P.PN_ITS ---
Subjective NPU Subjective: Interval history: Lizzie presents today still reporting concerns about being unable to sleep and wanting some comfort. Talk to the nurse about options for sleep and agitation. Mental Status Exam MSE Comments: This is an obese female in the hospital gown with limited grooming and eye contact. No abnormal movements except for psychomotor retardation. Mostly cooperative with exam in mild to moderate distress. Speech was somewhat frantic sounding in normal rate decreased volume. Mood described as depressed, affect flustered. Thought process organized. Thought content: Patient denied homicidal ideation but endorsed suicidal ideation more consistent with passive wish, there were no delusions reported or noted, she denied any auditory visual hallucinations. Attention and concentration were limited memory was unreliable but none were formally tested. She is alert and oriented x3. Insight and judgment are limited impulse control is limited. Vitals/I&O/Wt Last Vital Signs Temp 98.6 F 12/06/20 20:18 Pulse 106 H 12/06/20 20:18 Resp 18 12/06/20 20:18 BP 96/64 12/06/20 20:18 Pulse Ox 93 12/06/20 20:18 12/06/20 12/06/20 12/07/20 14:59 22:59 06:59 Intake Total 300 / 300 30 / 330 Output Total 1200 / 1200 400 / 1600 Balance -900 / -900 -370 / -1270 Weight last 48 hrs Weight 100.062 kg Weight 97.25 kg Physical Exam Urinary Catheter Management^: Slater: Cath Placed During This Visit: no Reason for Continuing Indwelling Catheter: Chronic Indwelling Urinary Catheter on Admission Data NPU : 12/07/20 04:33 12/07/20 04:33 A&P Additional A&P Information (1) Anemia: (2) Hyponatremia: (3) Metabolic acidosis: (4) Acute kidney injury superimposed on chronic kidney disease: (5) Generalized weakness: (6) CKD (chronic kidney disease) stage 4, GFR 15-29 ml/min: (7) Hypokalemia: (8) Fungal skin disease: (9) Pleural effusion: (10) Atrial fibrillation: (11) Hypoglycemia: (12) Hyperkalemia: (13) Status post mitral valve annuloplasty: (14) H/O tricuspid valve annuloplasty: (15) Pacemaker: (16) Diabetes: (17) HTN (hypertension): (18) CHF (congestive heart failure): (19) Hypoxia: (20) Pneumonia: (21) SANDY (acute kidney injury): (22) Hypotension: (23) UTI (urinary tract infection): (24) Elevated d-dimer: (25) Depression: (26) Anxiety: This is a 65-year-old white female with a long history of multiple medical comorbidities who presents with some history of anxiety and depression with worsening recently reporting an openness to initiate an antidepressant. 1. Continue current medication. Agree with comfort meds for sleep up to 1 mg of Ativan by mouth daily at bedtime and give 1 mg by mouth twice a day for anxiety. Additionally can give 5 mg of Haldol daily at bedtime for agitation at night otherwise twice a day. 2. No clear indication for inpatient psychiatric treatment. Clearly seems to be more misery with her situation and wishing she wasn't in the struggle than active suicidal thinking. 3. We will continue to follow. Attestations NPU Medical Necessity Statement*: N/A. Please see primary care note for medical necessity. Coding Level of Care Code Acute Deputy Sheriff Bailiff for Braeden Kuhn
[2020-12-06] MEDS: atorvastatin 40 mg Tablet 20 MG PO (20:34)
[2020-12-06] MEDS: acetaminophen 325 mg Tablet 650 MG PO (20:36)
[2020-12-06 21:42] LABS: Glucose Point of Care 109 mg/dL (70-110)
[2020-12-07] MEDS: FUROsemide 10 mg/mL SDV 4mL 40 MG IVP (00:03)
[2020-12-07 00:53] VITALS: BP 96/61; PULSE 104; RESP 17; TEMP 37; O2SAT 95
[2020-12-07 04:57] VITALS: BP 94/59; PULSE 103; RESP 17; TEMP 36.6; O2SAT 99
--- NOTE | 2020-12-07 05:32 | PC.NURSE ---
Summary Patient was restless until she received her ativan then she calmed down and slept. No pain. Output of 400 mL over shift.
[2020-12-07 05:45] LABS: Basophils # 0.1 10^3/uL (0.0-0.1); Basophils % 0.8 %; Eosinophils % 0.3 %; Hematocrit 36.6 % (37.0-47.0); Hemoglobin 11.4 g/dL (11.5-15.3); Lymphocytes % 16.4 %; Mean Corpuscular HGB Conc 31.1 g/dL (30.0-36.0); Mean Corpuscular Hemoglobin 24.9 pg (28.0-34.0); Mean Corpuscular Volume 79.9 fL (81-99); Monocytes # 0.7 10^3/uL (0.2-0.9); Monocytes % 11.7 %; Neutrophils # 4.13 10^3/uL (1.8-7.7); Neutrophils % 69.5 %; Nucleated Red Blood Cells % 0 %; Platelet Count 87 10^3/cmm (130-400); Red Blood Count 4.58 10^6/uL (4.1-5.3); Red Cell Distribution Width 22.7 % (12.1-15.1)
[2020-12-07 06:21] LABS: Slide Review Slide Review Perform
[2020-12-07 06:24] LABS: Alanine Aminotransferase < 5 U/L (0-33); Albumin Level 2.8 g/dL (3.5-5.2); Alkaline Phosphatase 129 IU/L (35-105); Anion Gap 14.6 (5-19); Aspartate Amino Transferase 12 U/L (0-32); Blood Urea Nitrogen 37 mg/dL (8-23); C Reactive Protein 15.7 mg/L (0.0-4.9); Calcium 8.5 mg/dL (8.5-10.5); Carbon Dioxide 25 mmol/L (22-29); Chloride 95 mmol/L (98-107); Globulin 3.1 g/dL (1.3-4.6); Glomerular Filtration Rate 26.5 mL/min (90-130); Glucose 78 mg/dL (65-115); Magnesium 1.7 mg/dL (1.7-2.3); Osmolality Calculated 280 mOsm/kg (285-295); Phosphorus 2.6 mg/dL (2.5-4.5); Potassium 3.6 mmol/L (3.5-5.1); Sodium 131 mmol/L (136-145); Total Bilirubin 0.7 mg/dL (0.15-1.2); Total Protein 5.9 g/dL (6.6-8.7)
[2020-12-07 06:30] LABS: Procalcitonin 0.23 ng/mL (0-0.5)
[2020-12-07 06:40] LABS: Glucose Point of Care 92 mg/dL (70-110)
[2020-12-07] MEDS: levothyroxine 25 mcg Tablet PO (06:42)
[2020-12-07] MEDS: sulfamethoxazole-trimeth DS 160-800 mg Tablet 1 TAB PO ×2 (06:43→19:52)
--- NOTE | 2020-12-07 07:00 | XR_ITS ---
WS: [id number] PORTABLE CHEST HISTORY: sob COMPARISON: 11/29/2020 Dual lead LEFT subclavian pacer. Prior median sternotomy and cardiac valve replacement. Mild to moderate haziness over both lungs has progressed since the prior study consistent with edema. Small bilateral pleural effusions with mild progression. Cardiac size: Moderately enlarged cardiac silhouette. Enlarging heart size. Mediastinum/Aorta: Moderate atherosclerosis aorta. No osseous abnormality seen. XR/XR chest 1V portable [id number] IMPRESSION: 1. Interval progression of pulmonary edema. 2. Small but progression of bilateral pleural effusions. 3. Increasing cardiac silhouette.
[2020-12-07 07:25] VITALS: BP 111/78; PULSE 100; RESP 18; TEMP 36.6; O2SAT 98
[2020-12-07] MEDS: pantoprazole DR 40 mg Tablet PO (08:37)
[2020-12-07] MEDS: spironolactone 25 mg Tablet 12.5 MG PO (08:37)
[2020-12-07] MEDS: metoprolol tartrate 25 mg Tablet PO ×2 (08:37→21:00)
[2020-12-07] MEDS: escitalopram 10 mg Tablet 30 MG PO (08:38)
[2020-12-07] MEDS: potassium chloride ER 20 mEq Tablet 40 MEQ PO (08:38)
[2020-12-07] MEDS: amiodarone 200 mg Tablet PO (08:38)
[2020-12-07] MEDS: midodrine 5 mg TABLET 2.5 MG PO ×2 (08:53→21:00)
[2020-12-07] MEDS: ondansetron 2 mg/ML SDV 2 mL 4 MG IVP (10:49)
[2020-12-07 10:59] VITALS: BP 93/68; PULSE 112; RESP 18; TEMP 36.3; O2SAT 92
[2020-12-07 11:48] LABS: Glucose Point of Care 101 mg/dL (70-110)
--- NOTE | 2020-12-07 13:14 | P.PN_ITS ---
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, she has been seen by psychiatry I did discussion with patient's brother, about patient's goals of care, he tells me that Lizzie does this, she does not move at the detention, but ultimately decision is hers, I had a discussion about continued medical interventions versus hospice, he tells me ultimately it is her decision to make Vitals/I&O/Wt Last Vital Signs Temp 97.3 F L 12/07/20 10:59 Pulse 112 H 12/07/20 10:59 Resp 18 12/07/20 10:59 BP 93/68 12/07/20 10:59 Pulse Ox 92 12/07/20 10:59 12/06/20 12/07/20 12/07/20 22:59 06:59 14:59 Intake Total 300 / 300 30 / 330 Output Total 1200 / 1200 400 / 1600 Balance -900 / -900 -370 / -1270 Weight last 48 hrs Weight 100.062 kg Weight 97.25 kg Physical Exam Narrative: EXAM NARRATIVE: Generalized anasarca Const: COMMON NORMALS: no acute distress and patient oriented x3 HENMT: COMMON NORMALS: normocephalic HEAD & SCALP: normocephalic Neck/C-Spine: COMMON NORMALS: no JVD Resp: COMMON NORMALS: normal respiratory effort, No retractions, No use of accessory muscles and clear to auscultation bilaterally AUSCULTATION: clear to auscultation bilaterally Cardio: COMMON NORMALS: no JVD, regular rate, regular rhythm, S1 normal heart sound present and S2 normal heart sound present RATE: regular rate RHYTHM: regular rhythm HEART SOUNDS: S1 normal heart sound present and S2 normal heart sound present GI: COMMON NORMALS: Normal to inspection, nondistended, normoactive bowel sounds present, Soft to palpation, non-tender, No hepatosplenomegaly present, no masses and no bruits PALPATION: Yes Soft to palpation and Yes No hepatospleno megaly present Extremity: COMMON NORMALS: capillary refill normal, no clubbing, cyanosis or edema, no calf tenderness and no pedal edema Neuro: COMMON NORMALS: patient oriented x3 Psych: ATTITUDE: Yes calm ACTIVITY/MOTOR BEHAVIOR: Yes Avoids eye contact (attititude/behavior) SPEECH: Yes slow MOOD & AFFECT: Yes depressed mood Skin: NARRATIVE SKIN EXAM: Diffuse anasarca Urinary Catheter Management^: Slater: Cath Placed During This Visit: no Reason for Continuing Indwelling Catheter: Chronic Indwelling Urinary Catheter on Admission Data : 12/07/20 04:33 12/07/20 04:33 A&P Assessment and plan (1) Anasarca: -Likely secondary to diastolic CHF, right-sided heart failure, pulmonary hypertension -has gained roughly 10 pounds in the last few days, weight on last admission was 83 kg, weight today is 98.8 kg -Echocardiogram from October 30, 2020 shows: Small left ventricular cavity size. Normal left ventricular cavity size. Left ventricular ejection fraction is estimated at 55 %. Flattened septum in diastole consistent with right ventricle volume overload. 2-Severely increased right ventricular size. Severely decreased right ventricular systolic function. Moderate pulmonary hypertension, RVSP 65 mmHg. 3-Severely increased right atrial size. 4-Moderately increased left atrial size. 5-Severely thickened mitral valve. Severe mitral annular calcification. No mitral valve stenosis. Moderate to severe mitral valve regurgitation. 6-Severe aortic valve calcification. Moderate aortic valve stenosis, mean gradient, aortic valve is not well-visualized therefore cannot assess gradient on aortic valve area however appears to be moderately stenotic. 7-Structurally normal tricuspid valve without significant stenosis or regurgitation. Pulmonary artery systolic pressure is normal. 8-There is no pericardial effusion. 9-Right atrial pressure is around 20 mm of mercury. -Urine output has improved to 1600 cc, chest x-ray shows pulmonary edema, continues to have diffuse anasarca, but improved, she is -2 L Plan: -Fluid restrictions -Daily weights -We will hold Lasix and metolazone for now given creatinine up to 1.9 - spironolactone 12.5 mg daily to monitor serum potassiums -Monitor creatinine and urine output closely -On last admission patient had SANDY secondary to diuretics, hypoperfusion, has chronic hypotension, prerenal azotemia will start slow diuretic therapy and monitor her clinical response as she has CKD Plan for today, hold diuretic therapy, I have consulted cardiology team, psychiatry seen the patient Status: Acute (2) Hyponatremia: Monitor sodium levels closely given diuresis, serum sodium 131 Status: Acute (3) CKD (chronic kidney disease) stage 4, GFR 15-29 ml/min: Creatinine up to 1.9 today. Hypertension. Status: Chronic (4) Pulmonary hypertension: Status: Acute (5) Right heart failure: Status: Acute Qualifiers: Heart failure chronicity: acute on chronic Qualified Code(s): I50.813 - Acute on chronic right heart failure (6) Pleural effusion: Status: Acute (7) Atrial fibrillation: Continue amiodarone Xarelto on hold given thrombocytopenia Status: Acute (8) Diabetes: Low-dose sliding scale Levemir 10 units in the morning Status: Chronic (9) Diastolic CHF: Status: Acute (10) Pacemaker: Status: Acute (11) H/O tricuspid valve annuloplasty: Status: Acute (12) Status post mitral valve annuloplasty: Status: Acute (13) Urinary tract infection: -De-escalate to Bactrim -Follow urine cultures, blood cultures -CT scan of the abdomen pelvis does not show any obstructive uropathy or pyelonephritis Status: Acute (14) Chronic hypotension: -Has chronic hypotension on midodrine, -Does have a UTI -Continue midodrine for now Status: Acute (15) Cellulitis of left wrist: -X-ray of the wrist shows cellulitis, improving, de-escalate to doxycycline and Bactrim Status: Acute (16) Thrombocytopenia: -Likely secondary to fatty liver disease, and liver cirrhosis, CT scan of the abdomen shows liver irregularity suggesting liver cirrhosis, -For now hold Xarelto -Monitor for bleeding -SCDs for DVT prophylaxis Status: Acute (17) Suicidal ideation: -Has suicidal ideation, no active ideation, no plan -We will have Dr. Gilman see patient -Also has poor appetite, decreased willingness to participate in activities, does not want to do physical therapy, does not want to move -Unfortunately seems like Lizzie has just given up, she is not willing to participate in physical therapy, she is not willing to move, she denies been willing to change the channel on television, she just wants to be left alone, given her severe anasarca, and immobility, fluid will tend to reaccumulate in her legs and her lungs, the severe recurring phenomenon, recurring admission, high risk of morbidity and mortality, high risk of DVTs and PEs, UTIs, pneumonias, sepsis, septic shock -Patient's brother states that ultimately it is her decision to make about hospice, will have to reach out to psychiatry team to ensure that she can make decisions for herself given her suicidal ideation Status: Acute Additional A&P Information Has chronic hypotension, is on midodrine, likely related to right-sided heart failure Attestations Medical Necessity Statement*: Patient requires hospitalization for diffuse anasarca, right-sided heart failure, suicidal ideation Coding Level of Care Code Acute [employer] Super[employer] for Braeden Kuhn Diagnoses Anasarca R60.1 Hyponatremia E87.1 CKD (chronic kidney disease) stage 4, GFR 15-29 ml/min N18.4 Pulmonary hypertension I27.20 Right heart failure I50.813 Heart failure chronicity: acute on chronic Pleural effusion J90 Atrial fibrillation I48.91 Diabetes E11.9 Diastolic CHF I50.30 Pacemaker Z95.0 H/O tricuspid valve annuloplasty Z98.890 Status post mitral valve annuloplasty Z98.890 Urinary tract infection N39.0 Chronic hypotension I95.89 Cellulitis of left wrist L03.114 Thrombocytopenia D69.6 Suicidal ideation R45.851
[2020-12-07 15:14] VITALS: BP 112/62; PULSE 82; RESP 16; TEMP 37.1; O2SAT 95
[2020-12-07 16:49] LABS: Glucose Point of Care 100 mg/dL (70-110)
--- NOTE | 2020-12-07 17:20 | P.CONIM_ITS ---
Providers/Reason For Consult Consulting Physican/Specialty*: Dr. Pavon, Cardiology Reason for Consult*: Decompensated CHF Attending Physician: Praveen Perry MD Primary Care Provider: Heather Núñez MD History of Present Illness History of Present Illness Lizzie Pro is a 65 year old female with PMHx of long standing persistent atrial fibrillation s/p MAZE procedure and ANGELO ligation, poorly controlled DM, HTN, diastolic CHF, severe MR s/p mitral valve repair and tricuspid valve repair. She underwent mitral valve repair using 26 mm Physio ring and tricuspid valve repair using 26 mm MC3 tricuspid ring on December. She also underwent full left and right-sided Maze and left atrial appendage ligation using 40 mm AtriaCure clip. Post surgery, she underwent dual-chamber permanent pacemaker placement on December. Left ventricular ejection fraction 44%. She was in the hospital for about a week in 09/2020. She had moderate to large right-sided pleural effusion s/p thoracentesis with removal of 1 L of transudative effusion. Her urine output was low initially but later on with albumin infusions and IV Lasix she was able to diurese and her renal function improved. She was started on low-dose metoprolol tartrate, digoxin and amiodarone for rate control. She also underwent VQ scan which showed low probability of PE tested negative for Covid PCR and influenza. She was also treated for UTI and possible pneumonia with Levaquin. She was admitted again in October- Nov 2020 after being admitted with poor PO intake, continued use of medications including diuretics and poor UO. She was in the hospital for SANDY on CKD stage IV, dehydration, hypokalemia. She was initially on IV fluid, for a short time on levophed, followed by intermittent diuresis and then IV fluid. She also had echocardiogram that showed low normal LV function, dilated RV with decreased RV function and severe pHTN. She was evaluated by psychiatry and her lexapro dose was adjusted. She was also started on midodrine for soft BP and was discharged to [place]. She missed her follow up appointment with me and inspite of contacting [facility], I did not receive any lab results till the day she was hospitalized. Many of her medications were held, as result she reportedly gained roughly 10 pounds in 48 hours and was sent to hospital for anasarca. She has been diuresed with lasix 40 mg IV BID followed by 40 mg TID, metolazone and spironolactone since being here and is just -2 L since admission. Today lasix and metolazone were held with concern for worsening renal function. Today, Lizzie was seen lying in bed. She states she cannot breath. Review of Systems General: Reports: 10 or more systems reviewed and unremarkable except in HPI and below Const: Denies: fever(s), chills, fatigue or malaise Card: Denies: chest pain, palpitations or dyspnea on exertion Resp: Denies: productive cough GI: Denies: abdominal pain, nausea, vomiting or diarrhea : Denies: flank pain or difficulty voiding Musc: Reports: back pain and joint pain (left shoulder pain) Skin/Breast: Reports: pruritus; Denies: rash Neuro: Denies: headache(s) Psych: Reports: depression and hopelessness Louie/Lymph: Denies: easy bleeding All/Imm: Denies: urticaria Meds/Allergies Home Medications and Allergies Home Medications Medication Instructions Recorded Confirmed Last Taken Type Refresh Tears See Rx Instructions .ROUTE .COMPLEX 05/05/20 11/29/20 Unknown History Systane (PF) See Rx Instructions .ROUTE .COMPLEX 05/05/20 11/29/20 Unknown History Benadryl 2 cap PO PRN 10/28/20 11/29/20 Unknown History hydroxyzine pamoate 25 mg PO TID PRN 10/28/20 11/29/20 11/28/20 History nystatin 1 applic TOPICAL TID PRN 10/28/20 11/29/20 Unknown History furosemide 40 mg PO DAILY@0800 30 Days #30 tab 11/15/20 11/29/20 11/28/20 Rx insulin aspart U-100 [Novolog See Rx Instructions .ROUTE 11/15/20 11/29/20 11/29/20 Rx U-100 Insulin aspart] .COMPLEX #10 ml Levemir FlexTouch U-100 Insuln 10 unit SUBCUT DAILY@0600 11/29/20 11/29/20 11/29/20 History Pacerone 200 mg PO DAILY@0800 11/29/20 11/29/20 11/28/20 History Xarelto 15 mg PO DAILY@0800 11/29/20 11/29/20 11/28/20 History bisacodyl 10 mg IL DAILY PRN 11/29/20 11/29/20 Unknown History escitalopram oxalate 30 mg PO DAILY@0800 11/29/20 11/29/20 11/28/20 History honey [MediHoney (honey)] 1 applic TOPICAL DAILY 11/29/20 11/29/20 11/28/20 History magnesium hydroxide [Milk of 400 mg PO DAILY PRN 11/29/20 11/29/20 Unknown History Magnesia] metoprolol tartrate 25 mg PO BID@0800,199911/29/20 11/29/20 11/28/20 History midodrine 2.5 mg PO BID@0800,199911/29/20 11/29/20 11/28/20 History pantoprazole 40 mg PO DAILY@0800 11/29/20 11/29/20 11/28/20 History polyethylene glycol 3350 [Miralax] 17 g PO DAILY PRN 11/29/20 11/29/20 Unknown History simvastatin 10 mg PO DAILY@199911/29/20 11/29/20 11/28/20 History sodium bicarbonate 650 mg PO BID@0800,199911/29/20 11/29/20 11/28/20 History sodium chloride 1 g PO TID@11/29/20 11/29/20 11/28/20 History sodium phosphates [Enema 118 ml [place] DAILY PRN 11/29/20 11/29/20 Unknown History Disposable] Allergies Allergy/AdvReac Type Severity Reaction Status Date / Time Penicillins Allergy Unknown Verified 05/05/20 08:39 Current Medications Current Medications Generic Name Dose Route Start Last Admin Trade Name Freq PRN Reason Stop Dose Admin Acetaminophen 650 mg 11/29/20 17:04 12/06/20 20:36 Acetaminophen 325 Mg Tablet PO 650 mg Q6H PRN Administration Mild/Mod Pain Or Temp >/= 101 Amiodarone HCl 200 mg 11/30/20 08:00 12/07/20 08:38 Amiodarone 200 Mg Tablet PO 200 mg DAILY@0800 [facility] Administration Atorvastatin Calcium 20 mg 11/29/20 20:00 12/06/20 20:34 Atorvastatin 40 Mg Tablet PO 20 mg DAILY@1999 [facility] Administration Escitalopram Oxalate 30 mg 11/30/20 08:00 12/07/20 08:38 Escitalopram 10 Mg Tablet PO 30 mg DAILY@0800 [facility] Administration Furosemide 40 mg 12/05/20 08:31 12/07/20 00:03 Furosemide 10 Mg/Ml Sdv 4ml IVP 40 mg Q8H JM Administration Hydroxyzine Pamoate 25 mg 11/29/20 17:04 12/04/20 11:31 Hydroxyzine 25 Mg Capsule PO 25 mg TID PRN Administration Itching Insulin Aspart 0 unit 11/29/20 18:00 12/07/20 12:33 Insulin Aspart 100 Unit/1 Ml SUBCUT Not Given TIDWM [facility] Protocol Insulin Detemir 10 unit 11/30/20 06:00 12/07/20 06:24 Insulin Detemir 100 Units/1 Ml SUBCUT 10 unit DAILY@0600 [facility] Administration Levothyroxine Sodium 25 mcg 12/01/20 06:00 12/07/20 06:42 Levothyroxine 25 Mcg Tablet PO 25 mcg QAM [facility] Administration Lorazepam 1 mg 12/05/20 23:06 12/06/20 20:57 Lorazepam 1 Mg Tablet PO 1 mg BID PRN Administration ANXIETY Metolazone 5 mg 11/30/20 09:55 12/06/20 09:08 Metolazone 5 Mg Tablet PO 5 mg DAILY [facility] Administration Metoprolol Tartrate 25 mg 11/29/20 20:00 12/07/20 08:37 Metoprolol Tartrate 25 Mg Tablet PO 25 mg BID@ [facility] Administration Midodrine 2.5 mg 11/29/20 20:00 12/07/20 08:53 Midodrine 5 Mg Tablet PO 2.5 mg BID@ [facility] Administration Non-Formulary Medication 1 applic 11/30/20 09:00 12/07/20 09:11 Honey [Medihoney (Honey)] TOPICAL Not Given DAILY [facility] Ondansetron HCl 4 mg 11/29/20 17:04 12/07/20 10:49 Ondansetron 2 Mg/Ml Sdv 2 Ml IVP 4 mg Q6H PRN Administration NAUSEA AND VOMITING Pantoprazole Sodium 40 mg 11/30/20 08:00 12/07/20 08:[address] 40 Mg Tablet PO 40 mg DAILY@0800 [facility] Administration Potassium Chloride 40 meq 12/06/20 09:00 12/07/20 08:38 Potassium Chloride Er 20 Meq Tablet PO 40 meq DAILY JM Administration Rivaroxaban 15 mg 11/30/20 08:00 11/30/20 08:01 Rivaroxaban 10 Mg Tablet PO 15 mg DAILY@0800 JM Administration Spironolactone 12.5 mg 11/29/20 17:04 12/07/20 08:37 Spironolactone 25 Mg Tablet PO 12.5 mg DAILY JM Administration Trimethoprim/Sulfamethoxazole 1 tab 12/03/20 19:00 12/07/20 06:43 Sulfamethoxazole-Trimeth Ds 160-800 Mg Tablet PO 1 tab Q12H JM Administration Protocol PFSH Acute PFSH: Medical History Anemia, chronic disease Atrial fibrillation CHF (congestive heart failure) CKD (chronic kidney disease) stage 4, GFR 15-29 ml/min Coronary artery disease Diabetes Morbid obesity Pacemaker Surgical History H/O tricuspid valve annuloplasty Hx of CABG S/P cholecystectomy S/P left atrial appendage ligation S/P Maze operation for atrial fibrillation Status post mitral valve annuloplasty Family History Other CAD (coronary artery disease) Diabetes Social History Smoking and tobacco status: never smoked Alcohol intake: never Lives independently: Yes Marital status: Single Vitals/I&O/Wt Last Vital Signs Temp 98.7 F 12/07/20 15:14 Pulse 82 12/07/20 15:14 Resp 16 12/07/20 15:14 BP 112/62 12/07/20 15:14 Pulse Ox 95 12/07/20 15:14 12/07/20 12/07/20 12/07/20 06:59 14:59 22:59 Intake Total 30 / 330 Output Total 400 / 1600 200 / 200 Balance -370 / -1270 -200 / -200 Weight last 48 hrs Weight 220 lb 9.6 oz Weight 214 lb 6.4 oz Physical Exam Narrative: EXAM NARRATIVE: Const: COMMON NORMALS: no acute distress, patient oriented x3 and alert GENERAL APPEARANCE: cooperative, comfortable and well kempt HENMT COMMON NORMALS: normocephalic, atraumatic, hearing grossly normal bilaterally and external ears normal HEAD & SCALP: normocephalic and atraumatic FACE & SINUS: normal facial exam and no edema EXTERNAL EAR: Yes external ears normal Eye COMMON NORMALS: Equal, round and reactive pupils present, EOMs intact bilaterally, conjunctivae normal and no scleral icterus GENERAL EYE: appearance normal, both eyes and all related structures ALIGNMENT: Yes alignment normal EYELID: eyelids normal CONJUNCTIVA: Yes conjunctivae normal SCLERA: sclerae normal PUPIL: Yes Equal, round and reactive pupils present Neck/C-Spine COMMON NORMALS: no lymphadenopathy, supple and Thyroid normal GENERAL: Yes normal visual inspection, Yes trachea midline and No Mass present (neck) THYROID: Thyroid normal CAROTIDS: Yes normal carotid upstroke CERVICAL SPINE: Yes cervical ROM normal Chest COMMONS NORMALS: normal inspection of the chest and normal palpation of entire chest wall CHEST: Yes Symmetrical chest wall rise, No mass, No tenderness, No Surgical scars present (Chest) and No rash Resp COMMON NORMALS: clear to auscultation bilaterally EFFORT & INSPECTION: Yes able to speak in complete sentences, No respiratory distress and No labored AUSCULTATION: clear to auscultation bilaterally, no crackles, no rales, no rhonchi, no wheezes and vesicular breath sounds Cardio COMMON NORMALS: S1 normal heart sound present, S2 normal heart sound present and Peripheral pulses 2+ throughout JUGULAR VENOUS DISTENTION: JVD PALPATION: normal PMI RHYTHM: abnormal rhythm irregularly irregular HEART SOUNDS: S1 normal heart sound present, S2 normal heart sound present, no gallops and no murmurs BRUITS: no abdominal aortic bruits, no carotid bruits and no femoral bruits PERIPHERAL PULSES: Peripheral pulses 2+ throughout, radial pulses present, posterior tibial pulses present and dorsalis pedis present GI COMMON NORMALS: Soft to palpation AUSCULTATION: Yes normoactive bowel sounds PALPATION: Yes Soft to palpation, No Tenderness to palpation present (GI), No Guarding due to palpation present (GI), No Rigid due to palpation, Extremity GENERAL: No calf tenderness, No clubbing, Yes edema (4+ edema extending above knees) and No pallor Neuro COMMON NORMALS: patient oriented x3 and no focal motor deficits SENSORIUM/ORIENTATION: Yes alert Psych COMMON NORMALS: Normal thought process present and speech normal APPEARANCE: Yes well kempt SPEECH: Yes normal speech MOOD & AFFECT: Yes depressed mood Skin HAIR: normal NAILS: normal and no clubbing Urinary Catheter Management^: Slater: Cath Placed During This Visit: no Reason for Continuing Indwelling Catheter: Chronic Indwelling Urinary Catheter on Admission Data Imaging^: CXR: I personally reviewed and interpreted this imaging study as follows: My impression: IMPRESSION: 1. Interval progression of pulmonary edema. 2. Small but progression of bilateral pleural effusions. 3. Increasing cardiac silhouette. EKG^: EKG 1: I personally reviewed and interpreted this EKG as follows: My Interpretation: ATRIAL FIBRILLATION WITH RAPID VENTRICULAR RESPONSE LOW QRS VOLTAGE [QRS DEFLECTION < 0.5/1.0 mV IN LIMB/CHEST LEADS] RIGHT BUNDLE BRANCH BLOCK [120+ ms QRS DURATION, UPRIGHT V1, 40+ ms S IN I/aVL/V4/V5/V6] SEPTAL MYOCARDIAL INFARCTION , OF INDETERMINATE AGE [40+ ms Q WAVE IN V1/V2] LATERAL MYOCARDIAL INFARCTION , PROBABLY OLD [40+ ms Q WAVE AND/OR ST/T ABNORMALITY IN I/aVL/V5/V6] Compared to ECG 10/29/2020 02:10:09 Low QRS voltage now present Myocardial infarct finding now present Aberrant conduction of supraventricular beat(s) no longer present Ventricular premature complex(es) no longer present Right-axis deviation no longer present Other Data: Attestation for Other Data: I personally reviewed and interpreted the following: Other data: Echo: I personally reviewed and interpreted this imaging study as follows: My impression: # 10/28/20 CONCLUSIONS 1-Small left ventricular cavity size. Normal left ventricular cavity size. Left ventricular ejection fraction is estimated at 55 %. Flattened septum in diastole consistent with right ventricle volume overload. 2-Severely increased right ventricular size. Severely decreased right ventricular systolic function. Moderate pulmonary hypertension, RVSP 65 mmHg. 3-Severely increased right atrial size. 4-Moderately increased left atrial size. 5-Severely thickened mitral valve. Severe mitral annular calcification. No mitral valve stenosis. Moderate to severe mitral valve regurgitation. 6-Severe aortic valve calcification. Moderate aortic valve stenosis, mean gradient, aortic valve is not well-visualized therefore cannot assess gradient on aortic valve area however appears to be moderately stenotic. 7-Structurally normal tricuspid valve without significant stenosis or regurgitation. Pulmonary artery systolic pressure is normal. 8-There is no pericardial effusion. 9-Right atrial pressure is around 20 mm of mercury. 10-No significant change since the prior echocardiogram study of 09/10/20. A&P Assessment and plan (1) Right heart failure: Patient has chronic RV failure with elevated JVD and peripheral edema. -She has markedly dilated RV with severely decreased RV function and severe pHTN. Septal flattening in systole and diastole consistent with RV volume and pressure overload. [place] forming RV and RV > LV. -Her LV filling is volume dependant and both increase or decrease in volume can impair LV filling and CO.(Ventricular interdependance) -I will give lasix 80 mg IV x 1. -May have to use short term IV inotrope with IV lasix. Status: Acute Qualifiers: Heart failure chronicity: acute on chronic Qualified Code(s): I50.813 - Acute on chronic right heart failure (2) Acute kidney injury superimposed on chronic kidney disease: Status: Acute (3) Atrial fibrillation: Permanent A. fib on metoprolol, Xarelto held since admission and amiodarone. -A. fib ablation offered to patient in past and was declined. Status: Acute (4) Pulmonary hypertension: Severe pHTN WHO group 2 -unfortunately PH directed therapy has not been very beneficial in this group. -Will consider doing RHC at a later date(if patient is willing). Status: Acute (5) CKD (chronic kidney disease) stage 4, GFR 15-29 ml/min: Status: Chronic (6) H/O tricuspid valve annuloplasty: Status: Acute (7) Status post mitral valve annuloplasty: Status: Acute (8) Diabetes: Status: Chronic Additional A&P Information Hypotension: May use Midodrine for now and increase to 2.5 mg TID if needed Hyponatremia: portends poor prognosis Depression Anemia of ID and CKD Thrombocytopenia Generalized weakness and Deconditioning Depression Thank you for allowing me to participate in patient's care. Please feel free to call with questions or concerns. Consult Attestations Medical Necessity Statement: Needs hospital stay for CHF and SANDY Coding Level of Care Code Acute Director Of Consumer Affairs for Braeden Kuhn Diagnoses Right heart failure I50.813 Heart failure chronicity: acute on chronic Acute kidney injury superimposed on chronic kidney disease N17.9; N18.9 Atrial fibrillation I48.91 Pulmonary hypertension I27.20 CKD (chronic kidney disease) stage 4, GFR 15-29 ml/min N18.4 H/O tricuspid valve annuloplasty Z98.890 Status post mitral valve annuloplasty Z98.890 Diabetes E11.9 Time Spent (min) 40
[2020-12-07 20:28] VITALS: BP 95/67; PULSE 93; RESP 18; TEMP 36.4; O2SAT 99
--- NOTE | 2020-12-07 20:31 | PM.NPN ---
Subjective NPU Subjective: Interval history: Lizzie presents today continuing to appear to look for physical comfort in any way and endorsed pain and desire to sleep and looking for any support in obtaining these measures. Otherwise no significant changes or problems. Nursing reporting that although she reports not sleeping she is sleeping is just that she appears to want to sleep all the time. Mental Status Exam MSE Comments: This is an obese female in the hospital gown with limited grooming and eye contact. No abnormal movements except for psychomotor retardation. Mostly cooperative with exam in mild to moderate distress. Speech was somewhat frantic sounding in normal rate decreased volume. Mood described as depressed, affect flustered. Thought process organized. Thought content: Patient denied homicidal ideation but endorsed suicidal ideation more consistent with passive wish, there were no delusions reported or noted, she denied any auditory visual hallucinations. Attention and concentration were limited memory was unreliable but none were formally tested. She is alert and oriented x3. Insight and judgment are limited impulse control is limited. Vitals/I&O/Wt Last Vital Signs Temp 97.6 F 12/07/20 20:28 Pulse 93 12/07/20 20:28 Resp 18 12/07/20 20:28 BP 95/67 12/07/20 20:28 Pulse Ox 99 12/07/20 20:28 12/07/20 12/07/20 12/08/20 14:59 22:59 06:59 Intake Total 150 / 150 Output Total 350 / 350 350 / 700 Balance -350 / -350 -200 / -550 Weight last 48 hrs Weight 55.384 kg Weight 100.062 kg Physical Exam Urinary Catheter Management^: Slater: Cath Placed During This Visit: no Reason for Continuing Indwelling Catheter: Acute Urinary Retention or Obstruction Data NPU : 12/07/20 04:33 12/07/20 04:33 A&P Additional A&P Information (1) Anemia: (2) Hyponatremia: (3) Metabolic acidosis: (4) Acute kidney injury superimposed on chronic kidney disease: (5) Generalized weakness: (6) CKD (chronic kidney disease) stage 4, GFR 15-29 ml/min: (7) Hypokalemia: (8) Fungal skin disease: (9) Pleural effusion: (10) Atrial fibrillation: (11) Hypoglycemia: (12) Hyperkalemia: (13) Status post mitral valve annuloplasty: (14) H/O tricuspid valve annuloplasty: (15) Pacemaker: (16) Diabetes: (17) HTN (hypertension): (18) CHF (congestive heart failure): (19) Hypoxia: (20) Pneumonia: (21) SANDY (acute kidney injury): (22) Hypotension: (23) UTI (urinary tract infection): (24) Elevated d-dimer: (25) Depression: (26) Anxiety: This is a 65-year-old white female with a long history of multiple medical comorbidities who presents with some history of anxiety and depression with worsening recently reporting an openness to initiate an antidepressant. 1. Continue current medication. Agree with comfort meds for sleep up to 1 mg of Ativan by mouth daily at bedtime and give 1 mg by mouth twice a day for anxiety. Additionally can give 5 mg of Haldol daily at bedtime for agitation at night otherwise twice a day. 2. No clear indication for inpatient psychiatric treatment. Clearly seems to be more misery with her situation and wishing she wasn't in the struggle than active suicidal thinking. 3. Please advise if there is any additional needs. Attestations NPU Medical Necessity Statement*: N/A. Please see primary care note for medical necessity. Coding Level of Care Code Acute Mains And Service Supervisor for Braeden Kuhn
[2020-12-07] MEDS: atorvastatin 40 mg Tablet 20 MG PO (21:00)
[2020-12-07 21:27] LABS: Glucose Point of Care 138 mg/dL (70-110)
[2020-12-07] MEDS: FUROsemide 10 mg/mL SDV 10mL 80 MG IVP (21:43)
[2020-12-08] VITALS (7 sets, daily range): BP systolic 90–114; BP diastolic 61–86; PULSE 88–116; RESP 14–20; TEMP 36.4–36.6; O2SAT 97–99
[2020-12-08] MEDS: levothyroxine 25 mcg Tablet PO (05:49)
[2020-12-08] MEDS: magnesium hydroxide 30 mL UDC PO (05:50)
[2020-12-08 06:01] LABS: Basophils # 0.1 10^3/uL (0.0-0.1); Eosinophils % 0.3 %; Hematocrit 37.7 % (37.0-47.0); Hemoglobin 11.6 g/dL (11.5-15.3); Lymphocytes # 1.1 10^3/uL (0.8-4.8); Lymphocytes % 16.6 %; Mean Corpuscular HGB Conc 30.8 g/dL (30.0-36.0); Mean Corpuscular Hemoglobin 25.5 pg (28.0-34.0); Mean Corpuscular Volume 82.9 fL (81-99); Monocytes # 0.8 10^3/uL (0.2-0.9); Neutrophils # 4.62 10^3/uL (1.8-7.7); Neutrophils % 69.1 %; Nucleated Red Blood Cells % 0 %; Platelet Count 93 10^3/cmm (130-400); Red Blood Count 4.55 10^6/uL (4.1-5.3); White Blood Count 6.7 10^3/uL (4.0-10.0)
[2020-12-08 06:15] LABS: Glucose Point of Care 105 mg/dL (70-110)
[2020-12-08] MEDS: sulfamethoxazole-trimeth DS 160-800 mg Tablet 1 TAB PO ×2 (06:24→19:09)
--- NOTE | 2020-12-08 06:36 | PC.NURSE ---
SHIFT SUMMARY Rested for periods. Hollers out freq when she is awake. Is confused and asks where she is at and why she feels so bad. Likes HOB up as far as it will go and still asks for it to be higher. Refuses to reposition on sides. Says cannot lay that way. Pitting edema to BLE with less weeping tonight. Received dose of Lasix IV in evening with only 450ml urine output this shift. Remains on fluid restriction and stays well under it. Will not pick her glass up herself for a drink of water. O2 in place at 1l per NC.
[2020-12-08 07:06] LABS: Alanine Aminotransferase < 5 U/L (0-33); Albumin Level 2.9 g/dL (3.5-5.2); Alkaline Phosphatase 133 IU/L (35-105); Anion Gap 16.1 (5-19); Aspartate Amino Transferase 13 U/L (0-32); Blood Urea Nitrogen 40 mg/dL (8-23); C Reactive Protein 13.7 mg/L (0.0-4.9); Calcium 8.1 mg/dL (8.5-10.5); Carbon Dioxide 23 mmol/L (22-29); Chloride 95 mmol/L (98-107); Glucose 89 mg/dL (65-115); Magnesium 1.8 mg/dL (1.7-2.3); Osmolality Calculated 279 mOsm/kg (285-295); Phosphorus 2.6 mg/dL (2.5-4.5); Potassium 4.1 mmol/L (3.5-5.1); Sodium 130 mmol/L (136-145); Total Bilirubin 0.6 mg/dL (0.15-1.2); Total Protein 5.9 g/dL (6.6-8.7)
[2020-12-08 07:10] LABS: Procalcitonin 0.23 ng/mL (0-0.5)
[2020-12-08 07:36] LABS: Slide Review Slide Review Perform
[2020-12-08] MEDS: metoprolol tartrate 25 mg Tablet PO ×2 (09:36→20:38)
[2020-12-08] MEDS: potassium chloride ER 20 mEq Tablet 40 MEQ PO (09:36)
[2020-12-08] MEDS: pantoprazole DR 40 mg Tablet PO (09:36)
[2020-12-08] MEDS: escitalopram 10 mg Tablet 30 MG PO (09:36)
[2020-12-08] MEDS: amiodarone 200 mg Tablet PO (09:36)
[2020-12-08] MEDS: midodrine 5 mg TABLET 2.5 MG PO ×2 (09:37→20:38)
[2020-12-08] MEDS: spironolactone 25 mg Tablet 12.5 MG PO (09:37)
--- NOTE | 2020-12-08 11:49 | PM.PN ---
Subjective Subjective: Interval history: Patient was examined this morning, she has has no complaints of chest pain, no shortness of breath, her main complaint is nursing staff keep bothering her, she wants to be left alone, nursing staff did get her up into a chair, I did briefly discuss with patient about hospice, I discussed hospice option with her brother, however he said that it is ultimately Lizzie's decision, Lizzie tells me that she just does not know, she would like to think on it, had a bit of a better appetite yesterday, now a bit more willing to get up out of bed Vitals/I&O/Wt Last Vital Signs Temp 97.9 F 12/08/20 08:39 Pulse 115 H 12/08/20 08:39 Resp 15 12/08/20 08:39 BP 94/64 12/08/20 08:39 Pulse Ox 98 12/08/20 08:39 12/07/20 12/08/20 12/08/20 22:59 06:59 14:59 Intake Total 150 / 150 100 / 100 Output Total 350 / 350 350 / 700 Balance -350 / -350 -200 / -550 100 / 100 Weight last 48 hrs Weight 55.384 kg Weight 100.062 kg Physical Exam Narrative: EXAM NARRATIVE: Generalized anasarca Const: COMMON NORMALS: no acute distress and patient oriented x3 HENMT: COMMON NORMALS: normocephalic HEAD & SCALP: normocephalic Neck/C-Spine: COMMON NORMALS: no JVD Resp: COMMON NORMALS: normal respiratory effort, No retractions, No use of accessory muscles and clear to auscultation bilaterally AUSCULTATION: clear to auscultation bilaterally Cardio: COMMON NORMALS: no JVD, regular rate, regular rhythm, S1 normal heart sound present and S2 normal heart sound present RATE: regular rate RHYTHM: regular rhythm HEART SOUNDS: S1 normal heart sound present and S2 normal heart sound present GI: COMMON NORMALS: Normal to inspection, nondistended, normoactive bowel sounds present, Soft to palpation, non-tender, No hepatosplenomegaly present, no masses and no bruits PALPATION: Yes Soft to palpation and Yes No hepatosplenomegaly present Extremity: COMMON NORMALS: capillary refill normal, no clubbing, cyanosis or edema, no calf tenderness and no pedal edema NARRATIVE EXTREMITY EXAM: 1+ pitting edema Neuro: COMMON NORMALS: patient oriented x3 Psych: COMMON NORMALS: mental status grossly normal Skin: NARRATIVE SKIN EXAM: Diffuse anasarca Urinary Catheter Management^: Slater: Cath Placed During This Visit: no Reason for Continuing Indwelling Catheter: Acute Urinary Retention or Obstruction Data : 12/08/20 04:43 12/08/20 04:43 A&P Assessment and plan (1) Anasarca: -Likely secondary to diastolic CHF, right-sided heart failure, pulmonary hypertension -has gained roughly 10 pounds in the last few days, weight on last admission was 83 kg, weight today is 98.8 kg -Echocardiogram from October 30, 2020 shows: Small left ventricular cavity size. Normal left ventricular cavity size. Left ventricular ejection fraction is estimated at 55 %. Flattened septum in diastole consistent with right ventricle volume overload. 2-Severely increased right ventricular size. Severely decreased right ventricular systolic function. Moderate pulmonary hypertension, RVSP 65 mmHg. 3-Severely increased right atrial size. 4-Moderately increased left atrial size. 5-Severely thickened mitral valve. Severe mitral annular calcification. No mitral valve stenosis. Moderate to severe mitral valve regurgitation. 6-Severe aortic valve calcification. Moderate aortic valve stenosis, mean gradient, aortic valve is not well-visualized therefore cannot assess gradient on aortic valve area however appears to be moderately stenotic. 7-Structurally normal tricuspid valve without significant stenosis or regurgitation. Pulmonary artery systolic pressure is normal. 8-There is no pericardial effusion. 9-Right atrial pressure is around 20 mm of mercury. -Urine output has improved to 1600 cc, chest x-ray shows pulmonary edema, continues to have diffuse anasarca, she is -2.28 cm Plan: -Fluid restrictions -Daily weights -Received 80 mg of Lasix yesterday - spironolactone 12.5 mg daily to monitor serum potassiums -Monitor creatinine and urine output closely -Cardiology on consult -On last admission patient had SANDY secondary to diuretics, hypoperfusion, has chronic hypotension, prerenal azotemia will start slow diuretic therapy and monitor her clinical response as she has CKD Plan for today, await cardiology's recommendation, continue antibiotics, monitor creatinine, monitor urine output Status: Acute (2) Hyponatremia: Monitor sodium levels closely given diuresis, serum sodium 131 Status: Acute (3) CKD (chronic kidney disease) stage 4, GFR 15-29 ml/min: Creatinine up to 1.9 today. Hypertension. Status: Chronic (4) Pulmonary hypertension: Status: Acute (5) Right heart failure: Status: Acute Qualifiers: Heart failure chronicity: acute on chronic Qualified Code(s): I50.813 - Acute on chronic right heart failure (6) Pleural effusion: Status: Acute (7) Atrial fibrillation: Continue amiodarone Xarelto on hold given thrombocytopenia Status: Acute (8) Diabetes: Low-dose sliding scale Levemir 10 units in the morning Status: Chronic (9) Diastolic CHF: Status: Acute (10) Pacemaker: Status: Acute (11) H/O tricuspid valve annuloplasty: Status: Acute (12) Status post mitral valve annuloplasty: Status: Acute (13) Urinary tract infection: -De-escalate to Bactrim -Follow urine cultures, blood cultures -CT scan of the abdomen pelvis does not show any obstructive uropathy or pyelonephritis Status: Acute (14) Chronic hypotension: -Has chronic hypotension on midodrine, -Does have a UTI -Continue midodrine for now Status: Acute (15) Cellulitis of left wrist: -X-ray of the wrist shows cellulitis, improving, de-escalate to doxycycline and Bactrim Status: Acute (16) Thrombocytopenia: -Likely secondary to fatty liver disease, and liver cirrhosis, CT scan of the abdomen shows liver irregularity suggesting liver cirrhosis, -For now hold Xarelto -Monitor for bleeding -SCDs for DVT prophylaxis Status: Acute (17) Suicidal ideation: -Has suicidal ideation, no active ideation, no plan -We will have Dr. Gilman see patient -Also has poor appetite, decreased willingness to participate in activities, does not want to do physical therapy, does not want to move -Unfortunately seems like Lizzie has just given up, she is not willing to participate in physical therapy, she is not willing to move, she denies been willing to change the channel on television, she just wants to be left alone, given her severe anasarca, and immobility, fluid will tend to reaccumulate in her legs and her lungs, the severe recurring phenomenon, recurring admission, high risk of morbidity and mortality, high risk of DVTs and PEs, UTIs, pneumonias, sepsis, septic shock -Patient's brother states that ultimately it is her decision to make about hospice, will have to reach out to psychiatry team to ensure that she can make decisions for herself given her suicidal ideation -Today patient tells me that she is just not sure about hospice, she is a bit more willing to participate in physical therapy, her appetite is a bit better Status: Acute Additional A&P Information Has chronic hypotension, is on midodrine, likely related to right-sided heart failure Attestations Medical Necessity Statement*: Patient requires hospitalization for CHF exacerbation, severe right-sided heart failure, diffuse anasarca, requiring diuretic therapy Coding Level of Care Code Acute Liability Claims Representative for [facility] Fwd Diagnoses Anasarca R60.1 Hyponatremia E87.1 CKD (chronic kidney disease) stage 4, GFR 15-29 ml/min N18.4 Pulmonary hypertension I27.20 Right heart failure I50.813 Heart failure chronicity: acute on chronic Pleural effusion J90 Atrial fibrillation I48.91 Diabetes E11.9 Diastolic CHF I50.30 Pacemaker Z95.0 H/O tricuspid valve annuloplasty Z98.890 Status post mitral valve annuloplasty Z98.890 Urinary tract infection N39.0 Chronic hypotension I95.89 Cellulitis of left wrist L03.114 Thrombocytopenia D69.6 Suicidal ideation R45.851
--- NOTE | 2020-12-08 17:38 | P.PN_ITS ---
Subjective Subjective: Interval history: Urine output 700 mL yesterday. Unfortunately she still has significant edema. At the time of evaluation she was seen sitting in chair. No events on telemetry. Looks pretty depressed and states he is sleeping. Medications: Reviewed: Yes Medication Review Details: Current Medications Acetaminophen (Acetaminophen 325 Mg Tablet) 650 mg PO Q6H PRN PRN Reason: Mild/Mod Pain Or Temp >/= 101 Last Admin: 12/06/20 20:36 Dose: 650 mg Documented by: Amiodarone HCl (Amiodarone 200 Mg Tablet) 200 mg PO DAILY@0800 [facility] Last Admin: 12/08/20 09:36 Dose: 200 mg Documented by: Artificial Tears (Artificial Tears Op Soln 15 Ml Btl) 1 drop EYEAFF DAILY PRN PRN Reason: DRY EYE(S) Atorvastatin Calcium (Atorvastatin 40 Mg Tablet) 20 mg PO DAILY@1999 [facility] Last Admin: 12/07/20 21:00 Dose: 20 mg Documented by: Bisacodyl (Bisacodyl 10 Mg Supp) 10 mg [place] DAILY PRN PRN Reason: Constipation Dextrose (Dextrose 50% Syringe 50 Ml) 25 ml IVP ONCE PRN; Protocol PRN Reason: hypoglycemia protocol Dextrose (Dextrose 50% Syringe 50 Ml) 50 ml IVP PRN PRN; Protocol PRN Reason: hypoglycemia protocol Escitalopram Oxalate (Escitalopram 10 Mg Tablet) 30 mg PO DAILY@0800 [facility] Last Admin: 12/08/20 09:36 Dose: 30 mg Documented by: Furosemide (Furosemide 10 Mg/Ml Sdv 4ml) 40 mg IVP Q8H [facility] Last Admin: 12/07/20 00:03 Dose: 40 mg Documented by: Glucagon (Glucagon 1 Mg/Ml Inj 1 Ml) 1 mg IM ONCE PRN; Protocol PRN Reason: Adult Acute Hypoglycemia Prot. Haloperidol (Haloperidol 5 Mg Tablet) 5 mg PO BID PRN PRN Reason: AGITATION Hydroxyzine Pamoate (Hydroxyzine 25 Mg Capsule) 25 mg PO TID PRN PRN Reason: Itching Last Admin: 12/04/20 11:31 Dose: 25 mg Documented by: Dextrose (D5w) 500 mls @ 100 mls/hr IV ONCE PRN; Protocol PRN Reason: Adult Acute Hypoglycemia Prot Insulin Aspart (Insulin Aspart 100 Unit/1 Ml) 0 unit SUBCUT TIDWM [facility]; Protocol Last Admin: 12/08/20 14:01 Dose: Not Given Documented by: Insulin Detemir (Insulin Detemir 100 Units/1 Ml) 10 unit SUBCUT DAILY@06 [facility] Last Admin: 12/08/20 06:24 Dose: 10 unit Documented by: Levothyroxine Sodium (Levothyroxine 25 Mcg Tablet) 25 mcg PO QAM [facility] Last Admin: 12/08/20 05:49 Dose: 25 mcg Documented by: Lorazepam (Lorazepam 1 Mg Tablet) 1 mg PO BID PRN PRN Reason: ANXIETY Last Admin: 12/06/20 20:57 Dose: 1 mg Documented by: Magnesium Hydroxide (Magnesium Hydroxide 30 Ml Udc) 30 ml PO DAILY PRN PRN Reason: Constipation Last Admin: 12/08/20 05:50 Dose: 30 ml Documented by: Metolazone (Metolazone 5 Mg Tablet) 5 mg PO DAILY [facility] Last Admin: 12/06/20 09:08 Dose: 5 mg Documented by: Metoprolol Tartrate (Metoprolol Tartrate 25 Mg Tablet) 25 mg PO BID@ [facility] Last Admin: 12/08/20 09:36 Dose: 25 mg Documented by: Midodrine (Midodrine 5 Mg Tablet) 2.5 mg PO BID@ [facility] Last Admin: 12/08/20 09:37 Dose: 2.5 mg Documented by: Naloxone HCl (Naloxone 0.4 Mg/Ml Sdv) 0.1 mg IVP Q2M PRN PRN Reason: OPIATERV Non-Formulary Medication (Honey [Medihoney (Honey)]) 1 applic TOPICAL DAILY [facility] Last Admin: 12/08/20 08:03 Dose: Not Given Documented by: Nystatin (Nystatin Cream 30 Gm) 1 applic TOPICAL TID PRN PRN Reason: Rash Ondansetron HCl (Ondansetron 2 Mg/Ml Sdv 2 Ml) 4 mg IVP Q6H PRN PRN Reason: NAUSEA AND VOMITING Last Admin: 12/07/20 10:49 Dose: 4 mg Documented by: Pantoprazole Sodium (Pantoprazole Dr 40 Mg Tablet) 40 mg PO DAILY@0800 [facility] Last Admin: 12/08/20 09:36 Dose: 40 mg Documented by: Polyethylene Glycol (Polyethylene Glycol 3350 Pkt 17 Gm) 17 gm PO DAILY PRN PRN Reason: Constipation Potassium Chloride (Potassium Chloride Er 20 Meq Tablet) 40 meq PO DAILY [facility] Last Admin: 12/08/20 09:36 Dose: 40 meq Documented by: Rivaroxaban (Rivaroxaban 10 Mg Tablet) 15 mg PO DAILY@0800 [facility] Last Admin: 11/30/20 08:01 Dose: 15 mg Documented by: Sodium Phosphate (Fleet Enema 133 Ml Enema) 118 ml [place] DAILY PRN PRN Reason: Constipation Spironolactone (Spironolactone 25 Mg Tablet) 12.5 mg PO DAILY [facility] Last Admin: 12/08/20 09:37 Dose: 12.5 mg Documented by: Trimethoprim/Sulfamethoxazole (Sulfamethoxazole-Trimeth Ds 160-800 Mg Tablet) 1 tab PO Q12H [facility]; Protocol Last Admin: 12/08/20 06:24 Dose: 1 tab Documented by: Vitals/I&O/Wt Last Vital Signs Temp 97.5 F L 12/08/20 16:11 Pulse 94 12/08/20 16:11 Resp 18 12/08/20 16:11 BP 114/72 12/08/20 16:11 Pulse Ox 99 12/08/20 16:11 12/08/20 12/08/20 12/08/20 06:59 14:59 22:59 Intake Total 150 / 150 100 / 100 Output Total 350 / 700 Balance -200 / -550 100 / 100 Weight last 48 hrs Weight 122 lb 1.6 oz Weight 220 lb 9.6 oz Physical Exam Narrative: EXAM NARRATIVE: EXAM NARRATIVE: Const: COMMON NORMALS: no acute distress, patient oriented x3 and alert GENERAL APPEARANCE: cooperative, comfortable and well [facility] COMMON NORMALS: normocephalic, atraumatic, hearing grossly normal bilaterally and external ears normal HEAD & SCALP: normocephalic and atraumatic FACE & SINUS: normal facial exam and no edema EXTERNAL EAR: Yes external ears normal Eye COMMON NORMALS: Equal, round and reactive pupils present, EOMs intact bilaterally, conjunctivae normal and no scleral icterus GENERAL EYE: appearance normal, both eyes and all related structures ALIGNMENT: Yes alignment normal EYELID: eyelids normal CONJUNCTIVA: Yes conjunctivae normal SCLERA: sclerae normal PUPIL: Yes Equal, round and reactive pupils present Neck/C-Spine COMMON NORMALS: supple and Thyroid normal GENERAL: Yes normal visual inspection, Yes trachea midline and No Mass present (neck) THYROID: Thyroid normal CAROTIDS: Yes normal carotid upstroke CERVICAL SPINE: Yes cervical ROM normal Chest COMMONS NORMALS: normal inspection of the chest and normal palpation of entire chest wall CHEST: Yes Symmetrical chest wall rise, No mass, No tenderness, + Surgical scars present (Chest) of sternotomy and No rash Resp COMMON NORMALS: clear to auscultation bilaterally EFFORT & INSPECTION: Yes able to speak in complete sentences, No respiratory distress and No labored AUSCULTATION: clear to auscultation bilaterally, decreased breath sounds at bases, no wheezes and vesicular breath sounds Cardio COMMON NORMALS: S1 and S2 irregular of variable intensity JUGULAR VENOUS DISTENTION: JVD PALPATION: normal PMI RHYTHM: abnormal rhythm irregularly irregular HEART SOUNDS: S1 normal heart sound present, S2 normal heart sound present, no gallops and no murmurs BRUITS: no abdominal aortic bruits, no carotid bruits and no femoral bruits PERIPHERAL PULSES: Peripheral pulses 2+ throughout, radial pulses present, posterior tibial pulses present and dorsalis pedis present GI COMMON NORMALS: Soft to palpation AUSCULTATION: Yes normoactive bowel sounds PALPATION: Yes Soft to palpation, No Tenderness to palpation present (GI), No Guarding due to palpation present (GI), No Rigid due to palpation, Extremity GENERAL: No calf tenderness, No clubbing, Yes edema (3+ edema extending above knees) and + pallor. Left shoulder pain Neuro COMMON NORMALS: patient oriented x3 and no focal motor deficits SENSORIUM/ORIENTATION: Yes alert Psych COMMON NORMALS: Normal thought process present and speech normal APPEARANCE: Yes well kempt SPEECH: Yes normal speech MOOD & AFFECT: Yes depressed mood Urinary Catheter Management^: Slater: Cath Placed During This Visit: no Reason for Continuing Indwelling Catheter: Acute Urinary Retention or Obstruction Data : 12/08/20 04:43 12/08/20 04:43 A&P Assessment and plan (1) Right heart failure: Patient has chronic RV failure with elevated JVD and peripheral edema. -She has markedly dilated RV with severely decreased RV function and severe pHTN. Septal flattening in systole and diastole consistent with RV volume and pressure overload. [place] forming RV and RV > LV. -Her LV filling is volume dependant and both increase or decrease in volume can impair LV filling and CO.(Ventricular interdependance) -I will give lasix 80 mg IV x 1 with albumin while waiting for transfer. -May have to use short term IV inotrope with IV lasix. Awaiting CSU/ICU bed for the same. Status: Acute Qualifiers: Heart failure chronicity: acute on chronic Qualified Code(s): I50.813 - Acute on chronic right heart failure (2) Acute kidney injury superimposed on chronic kidney disease: Status: Acute (3) Atrial fibrillation: Permanent A. fib on metoprolol, Xarelto held since admission and amiodarone. -A. fib ablation offered to patient in past and was declined. Status: Acute (4) Pulmonary hypertension: Severe pHTN WHO group 2 -unfortunately PH directed therapy has not been very beneficial in this group. -Will consider doing RHC at a later date(if patient is willing). Status: Acute (5) CKD (chronic kidney disease) stage 4, GFR 15-29 ml/min: Status: Chronic (6) H/O tricuspid valve annuloplasty: Status: Acute (7) Status post mitral valve annuloplasty: Status: Acute (8) Diabetes: Status: Chronic Additional A&P Information Hypotension: May use Midodrine for now and increase to 2.5 mg TID if needed Hyponatremia: portends poor prognosis Depression Anemia of ID and CKD Thrombocytopenia Generalized weakness and Deconditioning Depression Thank you for allowing me to participate in patient's care. Please feel free to call with questions or concerns. Attestations Medical Necessity Statement*: needs hospital stay for CHF and SANDY on CKD Coding Level of Care Code Acute Voice Pathologist for [facility] Fwd Diagnoses Right heart failure I50.813 Heart failure chronicity: acute on chronic Acute kidney injury superimposed on chronic kidney disease N17.9; N18.9 Atrial fibrillation I48.91 Pulmonary hypertension I27.20 CKD (chronic kidney disease) stage 4, GFR 15-29 ml/min N18.4 H/O tricuspid valve annuloplasty Z98.890 Status post mitral valve annuloplasty Z98.890 Diabetes E11.9
[2020-12-08] MEDS: FUROsemide 10 mg/mL SDV 10mL 80 MG IVP (19:08)
[2020-12-08] MEDS: LORazepam 1 mg Tablet PO (19:09)
[2020-12-08] MEDS: albumin 12.5 GM/50 ML VIAL IV (19:09)
[2020-12-08] MEDS: atorvastatin 40 mg Tablet 20 MG PO (20:38)
[2020-12-08] MEDS: DOBUTamine drip 500 MG/250 ML PREMIX IV (21:33)
--- NOTE | 2020-12-08 22:24 | PC.NURSE ---
Dr. Pavon ordered to start patient on Dobutamine drip at 3 mcg/kg/min. Ordered to notify physician if patient does not maintain MAP of 65 or greater.
[2020-12-08 23:59] LABS: Glucose Point of Care 131 mg/dL (70-110)
[2020-12-09] VITALS (49 sets, daily range): BP systolic 87–132; BP diastolic 58–91; PULSE 70–110; RESP 11–29; TEMP 36.3–36.7; O2SAT 95–100
[2020-12-09 03:24] LABS: Basophils % 0.7 %; Eosinophils % 0.4 %; Hematocrit 36.1 % (37.0-47.0); Hemoglobin 11.3 g/dL (11.5-15.3); Lymphocytes # 0.9 10^3/uL (0.8-4.8); Lymphocytes % 16.1 %; Mean Corpuscular HGB Conc 31.3 g/dL (30.0-36.0); Mean Corpuscular Hemoglobin 25.7 pg (28.0-34.0); Mean Corpuscular Volume 82.2 fL (81-99); Monocytes # 0.6 10^3/uL (0.2-0.9); Monocytes % 11.7 %; Neutrophils % 70.4 %; Nucleated Red Blood Cells % 0 %; Platelet Count 91 10^3/cmm (130-400); Red Blood Count 4.39 10^6/uL (4.1-5.3); Red Cell Distribution Width 22.5 % (12.1-15.1); White Blood Count 5.4 10^3/uL (4.0-10.0)
[2020-12-09 03:42] LABS: Alanine Aminotransferase < 5 U/L (0-33); Albumin Level 2.6 g/dL (3.5-5.2); Alkaline Phosphatase 133 IU/L (35-105); Aspartate Amino Transferase 12 U/L (0-32); Blood Urea Nitrogen 42 mg/dL (8-23); C Reactive Protein 11.1 mg/L (0.0-4.9); Calcium 8.3 mg/dL (8.5-10.5); Carbon Dioxide 26 mmol/L (22-29); Chloride 95 mmol/L (98-107); Globulin 3.1 g/dL (1.3-4.6); Glomerular Filtration Rate 23.6 mL/min (90-130); Glucose 104 mg/dL (65-115); Magnesium 1.8 mg/dL (1.7-2.3); Osmolality Calculated 283 mOsm/kg (285-295); Phosphorus 2.2 mg/dL (2.5-4.5); Sodium 131 mmol/L (136-145); Total Bilirubin 0.5 mg/dL (0.15-1.2); Total Protein 5.7 g/dL (6.6-8.7)
[2020-12-09 03:49] LABS: Procalcitonin 0.25 ng/mL (0-0.5)
[2020-12-09 06:26] LABS: Glucose Point of Care 106 mg/dL (70-110)
[2020-12-09] MEDS: sulfamethoxazole-trimeth DS 160-800 mg Tablet 1 TAB PO (06:30)
[2020-12-09] MEDS: levothyroxine 25 mcg Tablet PO (06:30)
--- NOTE | 2020-12-09 06:34 | P.PN_ITS ---
Subjective Subjective: Interval history: Sitting in bed states she wants to sleep throughout the day. No events on telemetry. Medications: Reviewed: Yes Medication Review Details: Current Medications Acetaminophen (Acetaminophen 325 Mg Tablet) 650 mg PO Q6H PRN PRN Reason: Mild/Mod Pain Or Temp >/= 101 Last Admin: 12/06/20 20:36 Dose: 650 mg Documented by: Amiodarone HCl (Amiodarone 200 Mg Tablet) 200 mg PO DAILY@0800 [facility] Last Admin: 12/08/20 09:36 Dose: 200 mg Documented by: Artificial Tears (Artificial Tears Op Soln 15 Ml Btl) 1 drop EYEAFF DAILY PRN PRN Reason: DRY EYE(S) Atorvastatin Calcium (Atorvastatin 40 Mg Tablet) 20 mg PO DAILY@1999 [facility] Last Admin: 12/08/20 20:38 Dose: 20 mg Documented by: Bisacodyl (Bisacodyl 10 Mg Supp) 10 mg SD DAILY PRN PRN Reason: Constipation Dextrose (Dextrose 50% Syringe 50 Ml) 25 ml IVP ONCE PRN; Protocol PRN Reason: hypoglycemia protocol Dextrose (Dextrose 50% Syringe 50 Ml) 50 ml IVP PRN PRN; Protocol PRN Reason: hypoglycemia protocol Escitalopram Oxalate (Escitalopram 10 Mg Tablet) 30 mg PO DAILY@0800 [facility] Last Admin: 12/08/20 09:36 Dose: 30 mg Documented by: Glucagon (Glucagon 1 Mg/Ml Inj 1 Ml) 1 mg IM ONCE PRN; Protocol PRN Reason: Adult Acute Hypoglycemia Prot. Haloperidol (Haloperidol 5 Mg Tablet) 5 mg PO BID PRN PRN Reason: AGITATION Hydroxyzine Pamoate (Hydroxyzine 25 Mg Capsule) 25 mg PO TID PRN PRN Reason: Itching Last Admin: 12/04/20 11:31 Dose: 25 mg Documented by: Dextrose (D5w) 500 mls @ 100 mls/hr IV ONCE PRN; Protocol PRN Reason: Adult Acute Hypoglycemia Prot Dobutamine HCl/Dextrose (Dobutamine Drip) 500 mg in 250 mls @ 4.985 mls/hr IV .Q24H [facility] Last Admin: 12/08/20 21:33 Dose: 3 mcg/kg/min, 5 mls/hr Documented by: Insulin Aspart (Insulin Aspart 100 Unit/1 Ml) 0 unit SUBCUT TIDWM [facility]; Protocol Last Admin: 12/09/20 06:14 Dose: Not Given Documented by: Insulin Detemir (Insulin Detemir 100 Units/1 Ml) 10 unit SUBCUT DAILY@06 [facility] Last Admin: 12/09/20 06:30 Dose: 10 unit Documented by: Levothyroxine Sodium (Levothyroxine 25 Mcg Tablet) 25 mcg PO QAM [facility] Last Admin: 12/09/20 06:30 Dose: 25 mcg Documented by: Lorazepam (Lorazepam 1 Mg Tablet) 1 mg PO BID PRN PRN Reason: ANXIETY Last Admin: 12/08/20 19:09 Dose: 1 mg Documented by: Magnesium Hydroxide (Magnesium Hydroxide 30 Ml Udc) 30 ml PO DAILY PRN PRN Reason: Constipation Last Admin: 12/08/20 05:50 Dose: 30 ml Documented by: Metoprolol Tartrate (Metoprolol Tartrate 25 Mg Tablet) 25 mg PO BID@ [facility] Last Admin: 12/08/20 20:38 Dose: 25 mg Documented by: Midodrine (Midodrine 5 Mg Tablet) 2.5 mg PO BID@ [facility] Last Admin: 12/08/20 20:38 Dose: 2.5 mg Documented by: Naloxone HCl (Naloxone 0.4 Mg/Ml Sdv) 0.1 mg IVP Q2M PRN PRN Reason: OPIATERV Non-Formulary Medication (Honey [Medihoney (Honey)]) 1 applic TOPICAL DAILY [facility] Last Admin: 12/08/20 08:03 Dose: Not Given Documented by: Nystatin (Nystatin Cream 30 Gm) 1 applic TOPICAL TID PRN PRN Reason: Rash Ondansetron HCl (Ondansetron 2 Mg/Ml Sdv 2 Ml) 4 mg IVP Q6H PRN PRN Reason: NAUSEA AND VOMITING Last Admin: 12/07/20 10:49 Dose: 4 mg Documented by: Pantoprazole Sodium (Pantoprazole Dr 40 Mg Tablet) 40 mg PO DAILY@0800 [facility] Last Admin: 12/08/20 09:36 Dose: 40 mg Documented by: Polyethylene Glycol (Polyethylene Glycol 3350 Pkt 17 Gm) 17 gm PO DAILY PRN PRN Reason: Constipation Potassium Chloride (Potassium Chloride Er 20 Meq Tablet) 40 meq PO DAILY [facility] Last Admin: 12/08/20 09:36 Dose: 40 meq Documented by: Rivaroxaban (Rivaroxaban 10 Mg Tablet) 15 mg PO DAILY@0800 [facility] Last Admin: 11/30/20 08:01 Dose: 15 mg Documented by: Sodium Phosphate (Fleet Enema 133 Ml Enema) 118 ml SD DAILY PRN PRN Reason: Constipation Trimethoprim/Sulfamethoxazole (Sulfamethoxazole-Trimeth Ds 160-800 Mg Tablet) 1 tab PO Q12H [facility]; Protocol Last Admin: 12/09/20 06:30 Dose: 1 tab Documented by: Vitals/I&O/Wt Last Vital Signs Temp 97.5 F L 12/09/20 04:00 Pulse 92 12/09/20 05:53 Resp 11 L 12/09/20 05:30 BP 109/71 12/09/20 05:30 Pulse Ox 96 12/09/20 04:00 12/08/20 12/08/20 12/09/20 14:59 22:59 06:59 Intake Total 100 / 100 50 / 150 Output Total 600 / 600 Balance 100 / 100 50 / 150 -600 / -450 Weight last 48 hrs Weight 214 lb 4.8 oz Weight 122 lb 1.6 oz Physical Exam Narrative: EXAM NARRATIVE: Const: COMMON NORMALS: no acute distress, patient oriented x3 and alert GENERAL APPEARANCE: cooperative, comfortable and well [facility] COMMON NORMALS: normocephalic, atraumatic, hearing grossly normal bilaterally and external ears normal HEAD & SCALP: normocephalic and atraumatic FACE & SINUS: normal facial exam and no edema EXTERNAL EAR: Yes external ears normal Eye COMMON NORMALS: Equal, round and reactive pupils present, EOMs intact bilaterally, conjunctivae normal and no scleral icterus GENERAL EYE: appearance normal, both eyes and all related structures ALIGNMENT: Yes alignment normal EYELID: eyelids normal CONJUNCTIVA: Yes conjunctivae normal SCLERA: sclerae normal PUPIL: Yes Equal, round and reactive pupils present Neck/C-Spine COMMON NORMALS: supple and Thyroid normal GENERAL: Yes normal visual inspection, Yes trachea midline and No Mass present (neck) THYROID: Thyroid normal CAROTIDS: Yes normal carotid upstroke CERVICAL SPINE: Yes cervical ROM normal Chest COMMONS NORMALS: normal inspection of the chest and normal palpation of entire chest wall CHEST: Yes Symmetrical chest wall rise, No mass, No tenderness, + Surgical scars present (Chest) of sternotomy and No rash Resp COMMON NORMALS: clear to auscultation bilaterally EFFORT & INSPECTION: Yes able to speak in complete sentences, No respiratory distress and No labored AUSCULTATION: clear to auscultation bilaterally, decreased breath sounds at bases, no wheezes and vesicular breath sounds Cardio COMMON NORMALS: S1 and S2 irregular of variable intensity JUGULAR VENOUS DISTENTION: JVD PALPATION: normal PMI RHYTHM: abnormal rhythm irregularly irregular HEART SOUNDS: S1 normal heart sound present, S2 normal heart sound present, no gallops and no murmurs BRUITS: no abdominal aortic bruits, no carotid bruits and no femoral bruits PERIPHERAL PULSES: Peripheral pulses 2+ throughout, radial pulses present, posterior tibial pulses present and dorsalis pedis present GI COMMON NORMALS: Soft to palpation AUSCULTATION: Yes normoactive bowel sounds PALPATION: Yes Soft to palpation, No Tenderness to palpation present (GI), No G uarding due to palpation present (GI), No Rigid due to palpation, Extremity GENERAL: No calf tenderness, No clubbing, Yes edema (4+ edema extending above knees), weeping legs. Left shoulder pain Neuro COMMON NORMALS: patient oriented x3 and no focal motor deficits SENSORIUM/ORIENTATION: Yes alert Psych COMMON NORMALS: Normal thought process present and speech normal APPEARANCE: Yes well kempt SPEECH: Yes normal speech MOOD & AFFECT: Yes depressed mood Urinary Catheter Management^: Slater: Cath Placed During This Visit: no Reason for Continuing Indwelling Catheter: Accurate Measurement of Urinary Output in Critically Ill Patients Data : 12/09/20 02:43 12/09/20 02:43 A&P Assessment and plan (1) Right heart failure: Patient has chronic RV failure with elevated JVD and peripheral edema. -She has markedly dilated RV with severely decreased RV function and severe pHTN. Septal flattening in systole and diastole consistent with RV volume and pressure overload. [place] forming RV and RV > LV. -Her LV filling is volume dependant and both increase or decrease in volume can impair LV filling and CO.(Ventricular interdependance) -I will give Bumex 2 mg IV x 1 with albumin. -continue Dobutamine, will plan to increase to 5 mcg; she may need levophed along with that. Status: Acute Qualifiers: Heart failure chronicity: acute on chronic Qualified Code(s): I50.813 - Acute on chronic right heart failure (2) Acute kidney injury superimposed on chronic kidney disease: Creatinine increasing slowly. Status: Acute (3) Atrial fibrillation: Permanent A. fib on metoprolol, Xarelto held since admission and amiodarone. -A. fib ablation offered to patient in past and was declined. Status: Acute (4) Pulmonary hypertension: Severe pHTN WHO group 2 -unfortunately PH directed therapy has not been very beneficial in this group. -Will consider doing RHC at a later date(if patient is willing). Status: Acute (5) CKD (chronic kidney disease) stage 4, GFR 15-29 ml/min: Status: Chronic (6) H/O tricuspid valve annuloplasty: Status: Acute (7) Status post mitral valve annuloplasty: Status: Acute (8) Diabetes: Status: Chronic Additional A&P Information Hyponatremia: portends poor prognosis Depression Anemia of ID and CKD Thrombocytopenia Generalized weakness and Deconditioning Depression Thank you for allowing me to participate in patient's care. Please feel free to call with questions or concerns. Attestations Medical Necessity Statement*: needs hospital stay for CHF and SANDY on CKD Coding Level of Care Code Acute Lifestyle Block Farmer for [facility] Fwd Diagnoses Right heart failure I50.813 Heart failure chronicity: acute on chronic Acute kidney injury superimposed on chronic kidney disease N17.9; N18.9 Atrial fibrillation I48.91 Pulmonary hypertension I27.20 CKD (chronic kidney disease) stage 4, GFR 15-29 ml/min N18.4 H/O tricuspid valve annuloplasty Z98.890 Status post mitral valve annuloplasty Z98.890 Diabetes E11.9
[2020-12-09] MEDS: metoprolol tartrate 25 mg Tablet PO ×2 (10:30→19:56)
[2020-12-09] MEDS: pantoprazole DR 40 mg Tablet PO (10:39)
[2020-12-09] MEDS: amiodarone 200 mg Tablet PO (10:39)
[2020-12-09] MEDS: escitalopram 10 mg Tablet 30 MG PO (10:41)
[2020-12-09] MEDS: potassium chloride ER 20 mEq Tablet 40 MEQ PO (10:41)
[2020-12-09] MEDS: rivaroxaban 10 mg Tablet 15 MG PO (10:42)
[2020-12-09 11:54] LABS: Glucose Point of Care 89 mg/dL (70-110)
--- NOTE | 2020-12-09 15:08 | P.PN_ITS ---
Subjective Subjective: Interval history: This morning patient was examined, she has been moved out to the CSU, started on a dobutamine drip, with Lasix, to improve her diuresis, she does not seem particularly motivated, she tells me that there is nothing wrong, she is quite withdrawn, she has no complaints, no complaint of shortness of breath, she has not had any breakfast this morning, continues to have generalized anasarca Vitals/I&O/Wt Last Vital Signs Temp 97.5 F L 12/09/20 04:00 Pulse 92 12/09/20 05:53 Resp 11 L 12/09/20 05:30 BP 109/71 12/09/20 05:30 Pulse Ox 96 12/09/20 04:00 12/09/20 12/09/20 12/09/20 06:59 14:59 22:59 Output Total 600 / 600 Balance -600 / -450 Weight last 48 hrs Weight 97.205 kg Weight 55.384 kg Physical Exam Narrative: EXAM NARRATIVE: Generalized anasarca Const: COMMON NORMALS: no acute distress and patient oriented x3 HENMT: COMMON NORMALS: normocephalic HEAD & SCALP: normocephalic Neck/C-Spine: COMMON NORMALS: no JVD Resp: COMMON NORMALS: normal respiratory effort, No retractions, No use of accessory muscles and clear to auscultation bilaterally AUSCULTATION: clear to auscultation bilaterally Cardio: COMMON NORMALS: no JVD, regular rate, regular rhythm, S1 normal heart sound present and S2 normal heart sound present RATE: regular rate RHYTHM: regular rhythm HEART SOUNDS: S1 normal heart sound present and S2 normal heart sound present GI: COMMON NORMALS: Normal to inspection, nondistended, normoactive bowel sounds present, Soft to palpation, non-tender, No hepatosplenomegaly present, no masses and no bruits PALPATION: Yes Soft to palpation and Yes No hepatosplenomegaly present Extremity: COMMON NORMALS: capillary refill normal, no clubbing, cyanosis or edema, no calf tenderness and no pedal edema Neuro: COMMON NORMALS: patient oriented x3 Psych: COMMON NORMALS: mental status grossly normal Skin: NARRATIVE SKIN EXAM: Diffuse anasarca Urinary Catheter Management^: Slater: Cath Placed During This Visit: no Reason for Continuing Indwelling Catheter: Accurate Measurement of Urinary Output in Critically Ill Patients Data : 12/09/20 02:43 12/09/20 02:43 A&P Assessment and plan (1) Anasarca: -Likely secondary to diastolic CHF, right-sided heart failure, pulmonary hypertension -has gained roughly 10 pounds in the last few days, weight on last admission was 83 kg, weight today is 98.8 kg -Echocardiogram from October 30, 2020 shows: Small left ventricular cavity size. Normal left ventricular cavity size. Left ventricular ejection fraction is estimated at 55 %. Flattened septum in diastole consistent with right ventricle volume overload. 2-Severely increased right ventricular size. Severely decreased right ventricular systolic function. Moderate pulmonary hypertension, RVSP 65 mmHg. 3-Severely increased right atrial size. 4-Moderately increased left atrial size. 5-Severely thickened mitral valve. Severe mitral annular calcification. No mitral valve stenosis. Moderate to severe mitral valve regurgitation. 6-Severe aortic valve calcification. Moderate aortic valve stenosis, mean gradient, aortic valve is not well-visualized therefore cannot assess gradient on aortic valve area however appears to be moderately stenotic. 7-Structurally normal tricuspid valve without significant stenosis or regurgitation. Pulmonary artery systolic pressure is normal. 8-There is no pericardial effusion. 9-Right atrial pressure is around 20 mm of mercury. -Urine output has improved to 1600 cc, chest x-ray shows pulmonary edema, continues to have diffuse anasarca, she is -2.28 cm Plan: -Fluid restrictions -Daily weights -Received 80 mg of Lasix yesterday with dobutamine, urine output 700 cc, will receive albumin, dobutamine, bumex -Monitor creatinine and urine output closely -Cardiology on consult -On last admission patient had SANDY secondary to diuretics, hypoperfusion, has chronic hypotension, prerenal azotemia will start slow diuretic therapy and monitor her clinical response as she has CKD Plan for today, continue Bumex, dobutamine drip, monitor urine output, encourage to get up out of bed Status: Acute (2) Hyponatremia: Monitor sodium levels closely given diuresis, serum sodium 131 Status: Acute (3) CKD (chronic kidney disease) stage 4, GFR 15-29 ml/min: Creatinine up to 1.9 today. Hypertension. Status: Chronic (4) Pulmonary hypertension: Status: Acute (5) Right heart failure: Status: Acute Qualifiers: Heart failure chronicity: acute on chronic Qualified Code(s): I50.813 - Acute on chronic right heart failure (6) Pleural effusion: Status: Acute (7) Atrial fibrillation: Continue amiodarone I have resumed Xarelto Status: Acute (8) Diabetes: Low-dose sliding scale Levemir 10 units in the morning Status: Chronic (9) Diastolic CHF: Status: Acute (10) Pacemaker: Status: Acute (11) H/O tricuspid valve annuloplasty: Status: Acute (12) Status post mitral valve annuloplasty: Status: Acute (13) Urinary tract infection: -De-escalate to Bactrim -Follow urine cultures, blood cultures -CT scan of the abdomen pelvis does not show any obstructive uropathy or pyelonephritis Status: Acute (14) Chronic hypotension: -Has chronic hypotension on midodrine, -Does have a UTI -Continue midodrine for now Status: Acute (15) Cellulitis of left wrist: -X-ray of the wrist shows cellulitis, improving, de-escalate to doxycycline and Bactrim Status: Acute (16) Thrombocytopenia: -Likely secondary to fatty liver disease, and liver cirrhosis, CT scan of the abdomen shows liver irregularity suggesting liver cirrhosis, -For now Xarelto continued, no signs of bleeding -Monitor for bleeding -SCDs for DVT prophylaxis Status: Acute (17) Suicidal ideation: -Has suicidal ideation, no active ideation, no plan -We will have Dr. Gilman see patient -Also has poor appetite, decreased willingness to participate in activities, does not want to do physical therapy, does not want to move -Unfortunately seems like Lizzie has just given up, she is not willing to participate in physical therapy, she is not willing to move, she denies been willing to change the channel on television, she just wants to be left alone, given her severe anasarca, and immobility, fluid will tend to reaccumulate in her legs and her lungs, the severe recurring phenomenon, recurring admission, high risk of morbidity and mortality, high risk of DVTs and PEs, UTIs, pneumonias, sepsis, septic shock -Patient's brother states that ultimately it is her decision to make about hospice, will have to reach out to psychiatry team to ensure that she can make decisions for herself given her suicidal ideation -Today patient tells me that she is just not sure about hospice, she is a bit more willing to participate in physical therapy, her appetite is a bit better Status: Acute Additional A&P Information Has chronic hypotension, is on midodrine, likely related to right-sided heart failure Attestations Medical Necessity Statement*: Patient requires hospitalization for CHF exacerbation, right-sided heart failure, anasarca, requiring dobutamine, Lasix Coding Level of Care Code Acute Hospitalist Nocturnist Physician for [facility] Fwd Diagnoses Anasarca R60.1 Hyponatremia E87.1 CKD (chronic kidney disease) stage 4, GFR 15-29 ml/min N18.4 Pulmonary hypertension I27.20 Right heart failure I50.813 Heart failure chronicity: acute on chronic Pleural effusion J90 Atrial fibrillation I48.91 Diabetes E11.9 Diastolic CHF I50.30 Pacemaker Z95.0 H/O tricuspid valve annuloplasty Z98.890 Status post mitral valve annuloplasty Z98.890 Urinary tract infection N39.0 Chronic hypotension I95.89 Cellulitis of left wrist L03.114 Thrombocytopenia D69.6 Suicidal ideation R45.851
[2020-12-09 16:50] LABS: Glucose Point of Care 157 mg/dL (70-110)
[2020-12-09] MEDS: bumetanide 0.25 mg/mL SDV 10 mL 2 MG IV (18:27)
[2020-12-09 19:51] LABS: Glucose Point of Care 178 mg/dL (70-110)
[2020-12-09] MEDS: LORazepam 1 mg Tablet PO (19:56)
[2020-12-09] MEDS: hyDROXYzine 25 mg Capsule PO (19:56)
[2020-12-09] MEDS: atorvastatin 40 mg Tablet 20 MG PO (19:57)
[2020-12-09] MEDS: haloperidol 5 mg Tablet PO (22:49)
[2020-12-10] VITALS (47 sets, daily range): BP systolic 53–124; BP diastolic 44–96; PULSE 86–119; RESP 12–30; TEMP 36–36.8; O2SAT 93–98
[2020-12-10] MEDS: ondansetron 2 mg/ML SDV 2 mL 4 MG IVP (00:56)
[2020-12-10 06:00] LABS: Basophils % 0.7 %; Eosinophils # 0.1 10^3/uL (0.0-0.8); Eosinophils % 1.1 %; Hematocrit 35.1 % (37.0-47.0); Lymphocytes # 0.8 10^3/uL (0.8-4.8); Lymphocytes % 14.5 %; Mean Corpuscular HGB Conc 31.3 g/dL (30.0-36.0); Mean Corpuscular Hemoglobin 25.6 pg (28.0-34.0); Mean Corpuscular Volume 81.8 fL (81-99); Monocytes # 0.6 10^3/uL (0.2-0.9); Monocytes % 10.6 %; Neutrophils # 3.91 10^3/uL (1.8-7.7); Neutrophils % 72.5 %; Nucleated Red Blood Cells % 0 %; Platelet Count 81 10^3/cmm (130-400); Red Blood Count 4.29 10^6/uL (4.1-5.3); Red Cell Distribution Width 22.1 % (12.1-15.1); White Blood Count 5.4 10^3/uL (4.0-10.0)
[2020-12-10 06:37] LABS: Glucose Point of Care 122 mg/dL (70-110)
[2020-12-10] MEDS: hyDROXYzine 25 mg Capsule PO (06:43)
[2020-12-10] MEDS: LORazepam 1 mg Tablet PO ×2 (06:43→21:12)
[2020-12-10] MEDS: levothyroxine 25 mcg Tablet PO (06:43)
[2020-12-10 07:39] LABS: Alanine Aminotransferase < 5 U/L (0-33); Albumin Level 2.9 g/dL (3.5-5.2); Alkaline Phosphatase 127 IU/L (35-105); Anion Gap 14.6 (5-19); Aspartate Amino Transferase 14 U/L (0-32); Blood Urea Nitrogen 46 mg/dL (8-23); Calcium 8.5 mg/dL (8.5-10.5); Carbon Dioxide 25 mmol/L (22-29); Chloride 93 mmol/L (98-107); Glomerular Filtration Rate 23.6 mL/min (90-130); Glucose 128 mg/dL (65-115); Magnesium 2.1 mg/dL (1.7-2.3); Osmolality Calculated 280 mOsm/kg (285-295); Potassium 4.6 mmol/L (3.5-5.1); Sodium 128 mmol/L (136-145); Total Bilirubin 0.5 mg/dL (0.15-1.2); Total Protein 5.9 g/dL (6.6-8.7)
--- NOTE | 2020-12-10 08:39 | PM.CONSULT ---
Providers/Reason For Consult Consulting Physican/Specialty*: Karlene Card DO, telenephrology Reason for Consult*: SANDY, michellerca Attending Physician: Praveen Perry MD Primary Care Provider: Heather Núñez MD History of Present Illness History of Present Illness Lizzie Pro is a 65 year old female with recurrent admission for anasarca, right sided heart failure Review of Systems General: Reports: ROS unobtainable due to medical condition Meds/Allergies Home Medications and Allergies Home Medications Medication Instructions Recorded Confirmed Last Taken Type Refresh Tears See Rx Instructions .ROUTE .COMPLEX 05/05/20 11/29/20 Unknown History Systane (PF) See Rx Instructions .ROUTE .COMPLEX 05/05/20 11/29/20 Unknown History Benadryl 2 cap PO PRN 10/28/20 11/29/20 Unknown History hydroxyzine pamoate 25 mg PO TID PRN 10/28/20 11/29/20 11/28/20 History nystatin 1 applic TOPICAL TID PRN 10/28/20 11/29/20 Unknown History furosemide 40 mg PO DAILY@0800 30 Days #30 tab 11/15/20 11/29/20 11/28/20 Rx insulin aspart U-100 [Novolog See Rx Instructions .ROUTE 11/15/20 11/29/20 11/29/20 Rx U-100 Insulin aspart] .COMPLEX #10 ml Levemir FlexTouch U-100 Insuln 10 unit SUBCUT DAILY@0600 11/29/20 11/29/20 11/29/20 History Pacerone 200 mg PO DAILY@0800 11/29/20 11/29/20 11/28/20 History Xarelto 15 mg PO DAILY@0800 11/29/20 11/29/20 11/28/20 History bisacodyl 10 mg NV DAILY PRN 11/29/20 11/29/20 Unknown History escitalopram oxalate 30 mg PO DAILY@0800 11/29/20 11/29/20 11/28/20 History honey [MediHoney (honey)] 1 applic TOPICAL DAILY 11/29/20 11/29/20 11/28/20 History magnesium hydroxide [Milk of 400 mg PO DAILY PRN 11/29/20 11/29/20 Unknown History Magnesia] metoprolol tartrate 25 mg PO BID@0800,199911/29/20 11/29/20 11/28/20 History midodrine 2.5 mg PO BID@11/29/20 11/29/20 11/28/20 History pantoprazole 40 mg PO DAILY@0800 11/29/20 11/29/20 11/28/20 History polyethylene glycol 3350 [Miralax] 17 g PO DAILY PRN 11/29/20 11/29/20 Unknown History simvastatin 10 mg PO DAILY@199911/29/20 11/29/20 11/28/20 History sodium bicarbonate 650 mg PO BID@08,199911/29/20 11/29/20 11/28/20 History sodium chloride 1 g PO TID@11/29/20 11/29/20 11/28/20 History sodium phosphates [Enema 118 ml NV DAILY PRN 11/29/20 11/29/20 Unknown History Disposable] Allergies Allergy/AdvReac Type Severity Reaction Status Date / Time Penicillins Allergy Unknown Verified 05/05/20 08:39 Current Medications Current Medications Generic Name Dose Route Start Last Admin Trade Name Freq PRN Reason Stop Dose Admin Acetaminophen 650 mg 11/29/20 17:04 12/06/20 20:36 Acetaminophen 325 Mg Tablet PO 650 mg Q6H PRN Administration Mild/Mod Pain Or Temp >/= 101 Amiodarone HCl 200 mg 11/30/20 08:00 12/09/20 10:39 Amiodarone 200 Mg Tablet PO 200 mg DAILY@0800 JM Administration Atorvastatin Calcium 20 mg 11/29/20 20:00 12/09/20 19:57 Atorvastatin 40 Mg Tablet PO 20 mg DAILY@1999 JM Administration Escitalopram Oxalate 30 mg 11/30/20 08:00 12/09/20 10:41 Escitalopram 10 Mg Tablet PO 30 mg DAILY@0800 JM Administration Haloperidol 5 mg 12/05/20 23:06 12/09/20 22:49 Haloperidol 5 Mg Tablet PO 5 mg BID PRN Administration AGITATION Hydroxyzine Pamoate 25 mg 11/29/20 17:04 12/10/20 06:43 Hydroxyzine 25 Mg Capsule PO 25 mg TID PRN Administration Itching Dobutamine HCl/Dextrose 500 mg in 250 mls @ 4.985 mls/hr 12/08/20 21:15 12/08/20 21:33 Dobutamine Drip IV 3 mcg/kg/min .Q24H JM 5 mls/hr Administration 3 MCG/KG/MIN Insulin Aspart 0 unit 11/29/20 18:00 12/10/20 08:01 Insulin Aspart 100 Unit/1 Ml SUBCUT Not Given TIDWM [facility] Protocol Insulin Detemir 10 unit 11/30/20 06:00 12/10/20 06:43 Insulin Detemir 100 Units/1 Ml SUBCUT 10 unit DAILY@0600 JM Administration Levothyroxine Sodium 25 mcg 12/01/20 06:00 12/10/20 06:43 Levothyroxine 25 Mcg Tablet PO 25 mcg QAM JM Administration Lorazepam 1 mg 12/05/20 23:06 12/10/20 06:43 Lorazepam 1 Mg Tablet PO 1 mg BID PRN Administration ANXIETY Magnesium Hydroxide 30 ml 11/29/20 17:04 12/08/20 05:50 Magnesium Hydroxide 30 Ml Udc PO 30 ml DAILY PRN Administration Constipation Metoprolol Tartrate 25 mg 11/29/20 20:00 12/09/20 19:56 Metoprolol Tartrate 25 Mg Tablet PO 25 mg BID@0800,1999 [facility] Administration Non-Formulary Medication 1 applic 11/30/20 09:00 12/09/20 10:43 Honey [Medihoney (Honey)] TOPICAL Not Given DAILY [facility] Ondansetron HCl 4 mg 11/29/20 17:04 12/10/20 00:56 Ondansetron 2 Mg/Ml Sdv 2 Ml IVP 4 mg Q6H PRN Administration NAUSEA AND VOMITING Pantoprazole Sodium 40 mg 11/30/20 08:00 12/09/20 10:[address] 40 Mg Tablet PO 40 mg DAILY@0800 [facility] Administration Potassium Chloride 40 meq 12/06/20 09:00 12/09/20 10:41 Potassium Chloride Er 20 Meq Tablet PO 40 meq DAILY JM Administration Rivaroxaban 15 mg 11/30/20 08:00 12/09/20 10:42 Rivaroxaban 10 Mg Tablet PO 15 mg DAILY@0800 JM Administration PFSH Acute PFSH: Medical History Anemia, chronic disease Atrial fibrillation CHF (congestive heart failure) CKD (chronic kidney disease) stage 4, GFR 15-29 ml/min Coronary artery disease Diabetes Morbid obesity Pacemaker Surgical History H/O tricuspid valve annuloplasty Hx of CABG S/P cholecystectomy S/P left atrial appendage ligation S/P Maze operation for atrial fibrillation Status post mitral valve annuloplasty Family History Other CAD (coronary artery disease) Diabetes Social History Smoking and tobacco status: never smoked Alcohol intake: never Lives independently: Yes Marital status: Single Vitals/I&O/Wt Last Vital Signs Temp 96.8 F L 12/10/20 07:31 Pulse 100 12/10/20 07:31 Resp 16 12/10/20 07:31 BP 100/70 12/10/20 07:31 Pulse Ox 96 12/09/20 22:30 12/09/20 12/10/20 12/10/20 22:59 06:59 14:59 Intake Total 200 / 200 50 / 250 360 / 360 Output Total 475 / 475 200 / 675 Balance -275 / -275 -150 / -425 360 / 360 Weight last 48 hrs Weight 97.749 kg Weight 97.205 kg Physical Exam Const: COMMON NORMALS: negative for alert NUTRITIONAL APPEARANCE: obese Extremity: GENERAL: Yes edema (diffuse) Neuro: SENSORIUM/ORIENTATION: No alert Urinary Catheter Management^: Slater: Cath Placed During This Visit: no Reason for Continuing Indwelling Catheter: Accurate Measurement of Urinary Output in Critically Ill Patients Data Labs: Other Labs: phos 2, albumin 2.9, rafael Ca 9.5 Imaging^: CXR: Radiologist's impression: 12/07/20 1. Interval progression of pulmonary edema. 2. Small but progression of bilateral pleural effusions. 3. Increasing cardiac silhouette. CT Abd/Pel: Radiologist's impression: 11/29/2020 1. Liver demonstrates an irregular margin, suggesting hepatic cirrhosis. No focal liver lesions are demonstrated on this noncontrast study. 2. The kidneys are morphologically normal. No nephrolithiasis. No hydronephrosis. No ureteral calculi. No obstructive uropathy. 3. Diverticulosis of the colon; no acute diverticulitis. 4. Extensive subcutaneous edema throughout the abdomen and pelvis, suggesting anasarca. 5. Moderate ascites in the abdomen and pelvis. 6. Moderate-sized right pleural effusion. Small left pleural effusion. Small pericardial effusion. This is new when compared to the previous study. 7. Compressive atelectasis at the right lung base. Passive congestion noted in the bilateral lung bases. Echo: Radiologist's impression: 10/30/2020 1-Small left ventricular cavity size. Normal left ventricular cavity size. Left ventricular ejection fraction is estimated at 55 %. Flattened septum in diastole consistent with right ventricle volume overload. 2-Severely increased right ventricular size. Severely decreased right ventricular systolic function. Moderate pulmonary hypertension, RVSP 65 mmHg. 3-Severely increased right atrial size. 4-Moderately increased left atrial size. 5-Severely thickened mitral valve. Severe mitral annular calcification. No mitral valve stenosis. Moderate to severe mitral valve regurgitation. 6-Severe aortic valve calcification. Moderate aortic valve stenosis, mean gradient, aortic valve is not well-visualized therefore cannot assess gradient on aortic valve area however appears to be moderately stenotic. 7-Structurally normal tricuspid valve without significant stenosis or regurgitation. Pulmonary artery systolic pressure is normal. 8-There is no pericardial effusion. 9-Right atrial pressure is around 20 mm of mercury. A&P Additional A&P Information 1. Acute kidney injury, chronic kidney disease 2. Anasarca due to right heart failure 3. Hypervolemic hyponatremia 4. Hypophosphatemia Recommend: IV furosemide gtt 30 mg/hour, restrict fluids. Oral phos replacement if able to take po, IV if not. Prognosis is very poor, consider comfort care. Consult Attestations Medical Necessity Statement: critically ill Time Spent in Patient Care: Greater than 35 minutes Coding Level of Care Code Acute Flavor Room Worker for Braeden Kuhn
[2020-12-10] MEDS: escitalopram 10 mg Tablet 30 MG PO (08:49)
[2020-12-10] MEDS: rivaroxaban 10 mg Tablet 15 MG PO (08:49)
[2020-12-10] MEDS: amiodarone 200 mg Tablet PO (08:49)
[2020-12-10] MEDS: potassium chloride ER 20 mEq Tablet 40 MEQ PO (08:50)
[2020-12-10] MEDS: pantoprazole DR 40 mg Tablet PO (08:50)
--- NOTE | 2020-12-10 09:14 | PM.PN ---
Subjective Subjective: Interval history: Poor UO and depressed mood. Remains in A. fib Medications: Reviewed: Yes Medication Review Details: Current Medications Acetaminophen (Acetaminophen 325 Mg Tablet) 650 mg PO Q6H PRN PRN Reason: Mild/Mod Pain Or Temp >/= 101 Last Admin: 12/06/20 20:36 Dose: 650 mg Documented by: Amiodarone HCl (Amiodarone 200 Mg Tablet) 200 mg PO DAILY@0800 [facility] Last Admin: 12/10/20 08:49 Dose: 200 mg Documented by: Artificial Tears (Artificial Tears Op Soln 15 Ml Btl) 1 drop EYEAFF DAILY PRN PRN Reason: DRY EYE(S) Atorvastatin Calcium (Atorvastatin 40 Mg Tablet) 20 mg PO DAILY@1999 [facility] Last Admin: 12/09/20 19:57 Dose: 20 mg Documented by: Bisacodyl (Bisacodyl 10 Mg Supp) 10 mg WI DAILY PRN PRN Reason: Constipation Dextrose (Dextrose 50% Syringe 50 Ml) 25 ml IVP ONCE PRN; Protocol PRN Reason: hypoglycemia protocol Dextrose (Dextrose 50% Syringe 50 Ml) 50 ml IVP PRN PRN; Protocol PRN Reason: hypoglycemia protocol Escitalopram Oxalate (Escitalopram 10 Mg Tablet) 30 mg PO DAILY@0800 [facility] Last Admin: 12/10/20 08:49 Dose: 30 mg Documented by: Glucagon (Glucagon 1 Mg/Ml Inj 1 Ml) 1 mg IM ONCE PRN; Protocol PRN Reason: Adult Acute Hypoglycemia Prot. Haloperidol (Haloperidol 5 Mg Tablet) 5 mg PO BID PRN PRN Reason: AGITATION Last Admin: 12/09/20 22:49 Dose: 5 mg Documented by: Hydroxyzine Pamoate (Hydroxyzine 25 Mg Capsule) 25 mg PO TID PRN PRN Reason: Itching Last Admin: 12/10/20 06:43 Dose: 25 mg Documented by: Dextrose (D5w) 500 mls @ 100 mls/hr IV ONCE PRN; Protocol PRN Reason: Adult Acute Hypoglycemia Prot Dobutamine HCl/Dextrose (Dobutamine Drip) 500 mg in 250 mls @ 4.985 mls/hr IV .Q24H [facility] Last Admin: 12/08/20 21:33 Dose: 3 mcg/kg/min, 5 mls/hr Documented by: Insulin Aspart (Insulin Aspart 100 Unit/1 Ml) 0 unit SUBCUT TIDWM [facility]; Protocol Last Admin: 12/10/20 08:01 Dose: Not Given Documented by: Insulin Detemir (Insulin Detemir 100 Units/1 Ml) 10 unit SUBCUT DAILY@0600 [facility] Last Admin: 12/10/20 06:43 Dose: 10 unit Documented by: Levothyroxine Sodium (Levothyroxine 25 Mcg Tablet) 25 mcg PO QAM [facility] Last Admin: 12/10/20 06:43 Dose: 25 mcg Documented by: Lorazepam (Lorazepam 1 Mg Tablet) 1 mg PO BID PRN PRN Reason: ANXIETY Last Admin: 12/10/20 06:43 Dose: 1 mg Documented by: Magnesium Hydroxide (Magnesium Hydroxide 30 Ml Udc) 30 ml PO DAILY PRN PRN Reason: Constipation Last Admin: 12/08/20 05:50 Dose: 30 ml Documented by: Metoprolol Tartrate (Metoprolol Tartrate 25 Mg Tablet) 25 mg PO BID@0800,1999 [facility] Last Admin: 12/10/20 08:50 Dose: Not Given Documented by: Naloxone HCl (Naloxone 0.4 Mg/Ml Sdv) 0.1 mg IVP Q2M PRN PRN Reason: OPIATERV Non-Formulary Medication (Honey [Medihoney (Honey)]) 1 applic TOPICAL DAILY [facility] Last Admin: 12/10/20 08:50 Dose: Not Given Documented by: Nystatin (Nystatin Cream 30 Gm) 1 applic TOPICAL TID PRN PRN Reason: Rash Ondansetron HCl (Ondansetron 2 Mg/Ml Sdv 2 Ml) 4 mg IVP Q6H PRN PRN Reason: NAUSEA AND VOMITING Last Admin: 12/10/20 00:56 Dose: 4 mg Documented by: Pantoprazole Sodium (Pantoprazole Dr 40 Mg Tablet) 40 mg PO DAILY@0800 [facility] Last Admin: 12/10/20 08:50 Dose: 40 mg Documented by: Polyethylene Glycol (Polyethylene Glycol 3350 Pkt 17 Gm) 17 gm PO DAILY PRN PRN Reason: Constipation Potassium Chloride (Potassium Chloride Er 20 Meq Tablet) 40 meq PO DAILY [facility] Last Admin: 12/10/20 08:50 Dose: 40 meq Documented by: Rivaroxaban (Rivaroxaban 10 Mg Tablet) 15 mg PO DAILY@0800 [facility] Last Admin: 12/10/20 08:49 Dose: 15 mg Documented by: Sodium Phosphate (Fleet Enema 133 Ml Enema) 118 ml WI DAILY PRN PRN Reason: Constipation Vitals/I&O/Wt Last Vital Signs Temp 96.8 F L 12/10/20 07:31 Pulse 100 12/10/20 07:31 Resp 16 12/10/20 07:31 BP 100/70 12/10/20 07:31 Pulse Ox 96 12/09/20 22:30 12/09/20 12/10/20 12/10/20 22:59 06:59 14:59 Intake Total 200 / 200 50 / 250 360 / 360 Output Total 475 / 475 200 / 675 Balance -275 / -275 -150 / -425 360 / 360 Weight last 48 hrs Weight 215 lb 8 oz Weight 214 lb 4.8 oz Physical Exam Narrative: EXAM NARRATIVE: Const: COMMON NORMALS: no acute distress, patient oriented x3 and alert GENERAL APPEARANCE: cooperative, comfortable and well kempt HENKY COMMON NORMALS: normocephalic, atraumatic, hearing grossly normal bilaterally and external ears normal HEAD & SCALP: normocephalic and atraumatic FACE & SINUS: normal facial exam and no edema EXTERNAL EAR: Yes external ears normal Eye COMMON NORMALS: Equal, round and reactive pupils present, EOMs intact bilaterally, conjunctivae normal and no scleral icterus GENERAL EYE: appearance normal, both eyes and all related structures ALIGNMENT: Yes alignment normal EYELID: eyelids normal CONJUNCTIVA: Yes conjunctivae normal SCLERA: sclerae normal PUPIL: Yes Equal, round and reactive pupils present Neck/C-Spine COMMON NORMALS: supple and Thyroid normal GENERAL: Yes normal visual inspection, Yes trachea midline and No Mass present (neck) THYROID: Thyroid normal CAROTIDS: Yes normal carotid upstroke CERVICAL SPINE: Yes cervical ROM normal Chest COMMONS NORMALS: normal inspection of the chest and normal palpation of entire chest wall CHEST: Yes Symmetrical chest wall rise, No mass, No tenderness, + Surgical scars present (Chest) of sternotomy and No rash Resp COMMON NORMALS: clear to auscultation bilaterally EFFORT & INSPECTION: Yes able to speak in complete sentences, No respiratory distress and No labored AUSCULTATION: clear to auscultation bilaterally, decreased breath sounds at bases, no wheezes and vesicular breath sounds Cardio COMMON NORMALS: S1 and S2 irregular of variable intensity JUGULAR VENOUS DISTENTION: JVD PALPATION: normal PMI RHYTHM: abnormal rhythm irregularly irregular HEART SOUNDS: S1 normal heart sound present, S2 normal heart sound present, no gallops and no murmurs BRUITS: no abdominal aortic bruits, no carotid bruits and no femoral bruits PERIPHERAL PULSES: Peripheral pulses 2+ throughout, radial pulses present, posterior tibial pulses present and dorsalis pedis present GI COMMON NORMALS: Soft to palpation AUSCULTATION: Yes normoactive bowel sounds PALPATION: Yes Soft to palpation, No Tenderness to palpation present (GI), No Guarding due to palpation present (GI), No Rigid due to palpation, Extremity GENERAL: No calf tenderness, No clubbing, Yes edema (4+ edema extending above knees), weeping legs. Left shoulder pain Neuro COMMON NORMALS: patient oriented x3 and no focal motor deficits SENSORIUM/ORIENTATION: Yes alert Psych COMMON NORMALS: Normal thought process present and speech normal APPEARANCE: Yes well kempt SPEECH: Yes normal speech MOOD & AFFECT: Yes depressed mood Urinary Catheter Management^: Slater: Cath Placed During This Visit: no Reason for Continuing Indwelling Catheter: Accurate Measurement of Urinary Output in Critically Ill Patients Data : 12/10/20 05:03 12/10/20 05:03 A&P Assessment and plan (1) Right heart failure: Patient has chronic RV failure with elevated JVD and peripheral edema. -She has markedly dilated RV with severely decreased RV function and severe pHTN. Septal flattening in systole and diastole consistent with RV volume and pressure overload. [place] forming RV and RV: LV >1. -Her LV filling is volume dependant and both increase or decrease in volume can impair LV filling and CO.(Ventricular interdependance) -continue Dobutamine,dose increased to 5 mcg; she may need levophed along with that. -started on lasix drip 10 mg/hr after 80 mg iv x 1. Plan to uptitrate based on UO to 15 mg/hr. Patient has a poor overall prognosis. I will talk to family about the same tomorrow. Status: Acute Qualifiers: Heart failure chronicity: acute on chronic Qualified Code(s): I50.813 - Acute on chronic right heart failure (2) Acute kidney injury superimposed on chronic kidney disease: Creatinine increasing slowly. -Nephrology on board. Status: Acute (3) Atrial fibrillation: Permanent A. fib on metoprolol, Xarelto held since admission and amiodarone. -A. fib ablation offered to patient in past and was declined. Status: Acute (4) Pulmonary hypertension: Severe pHTN WHO group 2 -unfortunately PH directed therapy has not been very beneficial in this group. Status: Acute (5) CKD (chronic kidney disease) stage 4, GFR 15-29 ml/min: Status: Chronic (6) H/O tricuspid valve annuloplasty: Status: Acute (7) Status post mitral valve annuloplasty: Status: Acute (8) Diabetes: Status: Chronic Additional A&P Information Hyponatremia: portends poor prognosis Severe Depression Anemia of ID and CKD Thrombocytopenia Generalized weakness and Deconditioning Depression Thank you for allowing me to participate in patient's care. Please feel free to call with questions or concerns. Attestations Medical Necessity Statement*: needs hospital stay for CHF and SANDY on CKD Time Spent in Patient Care: Greater than 35 minutes (>than 50% of time spent in counselling and/or direct pt care on unit). Critical Care Time: Critical Care Time (min): 40 Coding Level of Care Code Established Pt Acute Tech Writer for Chg Fwd Patient Type Established History Comprehensive Exam Comprehensive Medical Decision Making High Complexity Diagnoses Right heart failure I50.813 Heart failure chronicity: acute on chronic Acute kidney injury superimposed on chronic kidney disease N17.9; N18.9 Atrial fibrillation I48.91 Pulmonary hypertension I27.20 CKD (chronic kidney disease) stage 4, GFR 15-29 ml/min N18.4 H/O tricuspid valve annuloplasty Z98.890 Status post mitral valve annuloplasty Z98.890 Diabetes E11.9 Time Spent (min) 45
--- NOTE | 2020-12-10 10:38 | PC.NURSE ---
REPORT GIVEN TO MICHEAL, RN AT BEDSIDE IN ICU. PATIENT'S SISTER, ANTIONE, CALLED AND NOTIFIED OF PATIENT BEING TRANSFERRED. ALL BELONGINGS TAKEN TO ICU.
[2020-12-10 11:45] LABS: Glucose Point of Care 153 mg/dL (70-110)
[2020-12-10] MEDS: FUROsemide 100 MG in sodium chloride 0.9% 40 ML IV (12:13)
--- NOTE | 2020-12-10 14:23 | P.PN_ITS ---
Subjective Subjective: Interval history: Patient was examined this morning, she is moved to the ICU, for dobutamine drip, possible Levophed, currently she is in the ICU, she is saturating in the high 90s on nasal cannula, she has no complaints, she is tells me that again she wants to be left alone, no fevers, no chills, no nausea, vomiting, her urine output remains lackluster, IV access has been difficult, I discussed with patient central line placement, she is tells me that she is going to think about it, advised of the risk and benefits, she voiced understanding, she still not ready to make a decision Vitals/I&O/Wt Last Vital Signs Temp 96.8 F L 12/10/20 07:31 Pulse 114 H 12/10/20 14:00 Resp 19 H 12/10/20 14:00 BP 116/90 12/10/20 14:00 Pulse Ox 97 12/10/20 14:00 12/09/20 12/10/20 12/10/20 22:59 06:59 14:59 Intake Total 200 / 200 50 / 250 720 / 720 Output Total 475 / 475 200 / 675 575 / 575 Balance -275 / -275 -150 / -425 145 / 145 Weight last 48 hrs Weight 97.749 kg Weight 97.205 kg Physical Exam Narrative: EXAM NARRATIVE: Generalized anasarca Const: COMMON NORMALS: no acute distress and patient oriented x3 HENMT: COMMON NORMALS: normocephalic HEAD & SCALP: normocephalic Neck/C-Spine: COMMON NORMALS: no JVD Lymph: LYMPHATIC: no lymphadenopathy noted Resp: COMMON NORMALS: normal respiratory effort, No retractions, No use of accessory muscles and clear to auscultation bilaterally AUSCULTATION: clear to auscultation bilaterally Cardio: COMMON NORMALS: no JVD, regular rate, regular rhythm, S1 normal heart sound present and S2 normal heart sound present RATE: regular rate RHYTHM: regular rhythm HEART SOUNDS: S1 normal heart sound present and S2 normal heart sound present GI: COMMON NORMALS: Normal to inspection, nondistended, normoactive bowel sounds present, Soft to palpation, non-tender, No hepatosplenomegaly present, no masses and no bruits PALPATION: Yes Soft to palpation and Yes No hepatospl enomegaly present Extremity: COMMON NORMALS: capillary refill normal, no clubbing, cyanosis or edema, no calf tenderness and no pedal edema NARRATIVE EXTREMITY EXAM: 1+ pitting edema Neuro: COMMON NORMALS: patient oriented x3 Psych: COMMON NORMALS: mental status grossly normal Skin: NARRATIVE SKIN EXAM: Diffuse anasarca Urinary Catheter Management^: Slater: Cath Placed During This Visit: no Reason for Continuing Indwelling Catheter: Accurate Measurement of Urinary Output in Critically Ill Patients Data : 12/10/20 05:03 12/10/20 05:03 A&P Assessment and plan (1) Anasarca: -Likely secondary to diastolic CHF, right-sided heart failure, pulmonary hypertension -has gained roughly 10 pounds in the last few days, weight on last admission was 83 kg, weight on admission was 90.6 kg -Echocardiogram from October 30, 2020 shows: Small left ventricular cavity size. Normal left ventricular cavity size. Left ventricular ejection fraction is estimated at 55 %. Flattened septum in diastole consistent with right ventricle volume overload. 2-Severely increased right ventricular size. Severely decreased right ventricular systolic function. Moderate pulmonary hypertension, RVSP 65 mmHg. 3-Severely increased right atrial size. 4-Moderately increased left atrial size. 5-Severely thickened mitral valve. Severe mitral annular calcification. No mitral valve stenosis. Moderate to severe mitral valve regurgitation. 6-Severe aortic valve calcification. Moderate aortic valve stenosis, mean gradient, aortic valve is not well-visualized therefore cannot assess gradient on aortic valve area however appears to be moderately stenotic. 7-Structurally normal tricuspid valve without significant stenosis or regurgitation. Pulmonary artery systolic pressure is normal. 8-There is no pericardial effusion. 9-Right atrial pressure is around 20 mm of mercury. -Urine output has improved to 1250 cc, chest x-ray shows pulmonary edema, continues to have diffuse anasarca, she is - -3 L Plan: -Fluid restrictions -Daily weights -Currently in ICU, receiving dobutamine drip, Lasix drip -Monitor creatinine and urine output closely -Cardiology on consult -Nephrology on consult -On last admission patient had SANDY secondary to diuretics, hypoperfusion, has chronic hypotension, prerenal azotemia will start slow diuretic therapy and monitor her clinical response as she has CKD Plan for today, continue Bumex, dobutamine drip, monitor urine output, encourage to get up out of bed Status: Acute (2) Hyponatremia: Monitor sodium levels closely given diuresis, serum sodium 131 Status: Acute (3) CKD (chronic kidney disease) stage 4, GFR 15-29 ml/min: Creatinine up to 1.9 today. Hypertension. Status: Chronic (4) Pulmonary hypertension: Status: Acute (5) Right heart failure: Status: Acute Qualifiers: Heart failure chronicity: acute on chronic Qualified Code(s): I50.813 - Acute on chronic right heart failure (6) Pleural effusion: Status: Acute (7) Atrial fibrillation: Continue amiodarone I have resumed Xarelto Status: Acute (8) Diabetes: Low-dose sliding scale Levemir 10 units in the morning Status: Chronic (9) Diastolic CHF: Status: Acute (10) Pacemaker: Status: Acute (11) H/O tricuspid valve annuloplasty: Status: Acute (12) Status post mitral valve annuloplasty: Status: Acute (13) Urinary tract infection: -De-escalate to Bactrim -Follow urine cultures, blood cultures -CT scan of the abdomen pelvis does not show any obstructive uropathy or pyelonephritis Status: Acute (14) Chronic hypotension: -Has chronic hypotension on midodrine, -Does have a UTI -Continue midodrine for now Status: Acute (15) Cellulitis of left wrist: -X-ray of the wrist shows cellulitis, improving, de-escalate to doxycycline and Bactrim Status: Acute (16) Thrombocytopenia: -Likely secondary to fatty liver disease, and liver cirrhosis, CT scan of the abdomen shows liver irregularity suggesting liver cirrhosis, -For now Xarelto continued, no signs of bleeding -Monitor for bleeding -SCDs for DVT prophylaxis Status: Acute (17) Suicidal ideation: -Has suicidal ideation, no active ideation, no plan -We will have Dr. Gilman see patient -Also has poor appetite, decreased willingness to participate in activities, does not want to do physical therapy, does not want to move -Unfortunately seems like Lizzie has just given up, she is not willing to participate in physical therapy, she is not willing to move, she denies been willing to change the channel on television, she just wants to be left alone, given her severe anasarca, and immobility, fluid will tend to reaccumulate in her legs and her lungs, the severe recurring phenomenon, recurring admission, high risk of morbidity and mortality, high risk of DVTs and PEs, UTIs, pneumonias, sepsis, septic shock -Patient's brother states that ultimately it is her decision to make about hospice, will have to reach out to psychiatry team to ensure that she can make decisions for herself given her suicidal ideation -Today again patient is unwilling to participate in physical therapy, getting up out of bed Status: Acute Additional A&P Information Has chronic hypotension, is on midodrine, likely related to right-sided heart failure Attestations Medical Necessity Statement*: She requires hospitalization for severe anasarca, secondary to right-sided heart failure, requiring ICU admission for dobutamine drip, Lasix drip, possible Levophed Coding Level of Care Code Acute Academic Affairs Assistant for g Fwd Diagnoses Anasarca R60.1 Hyponatremia E87.1 CKD (chronic kidney disease) stage 4, GFR 15-29 ml/min N18.4 Pulmonary hypertension I27.20 Right heart failure I50.813 Heart failure chronicity: acute on chronic Pleural effusion J90 Atrial fibrillation I48.91 Diabetes E11.9 Diastolic CHF I50.30 Pacemaker Z95.0 H/O tricuspid valve annuloplasty Z98.890 Status post mitral valve annuloplasty Z98.890 Urinary tract infection N39.0 Chronic hypotension I95.89 Cellulitis of left wrist L03.114 Thrombocytopenia D69.6 Suicidal ideation R45.851
[2020-12-10] MEDS: FUROsemide 10 mg/mL SDV 10mL 80 MG IVP (15:49)
[2020-12-10 20:09] LABS: Glucose Point of Care 203 mg/dL (70-110)
[2020-12-10] MEDS: atorvastatin 40 mg Tablet 20 MG PO (21:11)
[2020-12-10] MEDS: FUROsemide 100 MG in sodium chloride 0.9% 40 ML 7.5 MG IV (21:12)
[2020-12-10] MEDS: metoprolol tartrate 25 mg Tablet PO (21:12)
[2020-12-10] MEDS: DOBUTamine drip 500 MG/250 ML PREMIX IV (21:13)
[2020-12-11] VITALS (49 sets, daily range): BP systolic 59–137; BP diastolic 39–91; PULSE 83–113; RESP 12–32; TEMP 36.3–36.9; O2SAT 96–99; BMI 39.4
[2020-12-11] MEDS: DOBUTamine drip 500 MG/250 ML PREMIX IV (00:21)
[2020-12-11] MEDS: haloperidol 5 mg Tablet PO (00:21)
[2020-12-11] MEDS: FUROsemide 100 MG in sodium chloride 0.9% 40 ML 7.5 MG IV (04:39)
[2020-12-11 05:38] LABS: Basophils % 0.8 %; Eosinophils % 0.4 %; Hematocrit 34.3 % (37.0-47.0); Hemoglobin 10.6 g/dL (11.5-15.3); Lymphocytes # 0.6 10^3/uL (0.8-4.8); Lymphocytes % 11.8 %; Mean Corpuscular HGB Conc 30.9 g/dL (30.0-36.0); Mean Corpuscular Hemoglobin 25.4 pg (28.0-34.0); Mean Corpuscular Volume 82.1 fL (81-99); Monocytes # 0.5 10^3/uL (0.2-0.9); Monocytes % 10.5 %; Neutrophils # 3.74 10^3/uL (1.8-7.7); Neutrophils % 75.9 %; Nucleated Red Blood Cells % 0 %; Platelet Count 92 10^3/cmm (130-400); Red Blood Count 4.18 10^6/uL (4.1-5.3); Red Cell Distribution Width 21.8 % (12.1-15.1); White Blood Count 4.9 10^3/uL (4.0-10.0)
[2020-12-11] MEDS: levothyroxine 25 mcg Tablet PO (05:41)
[2020-12-11 05:42] LABS: INR 1.72 (0.8-1.2)
[2020-12-11 05:53] LABS: Glucose Point of Care 112 mg/dL (70-110)
[2020-12-11 05:58] LABS: Alanine Aminotransferase < 5 U/L (0-33); Alkaline Phosphatase 136 IU/L (35-105); Anion Gap 12.3 (5-19); Aspartate Amino Transferase 13 U/L (0-32); Blood Urea Nitrogen 42 mg/dL (8-23); Calcium 8.5 mg/dL (8.5-10.5); Carbon Dioxide 29 mmol/L (22-29); Chloride 91 mmol/L (98-107); Globulin 2.7 g/dL (1.3-4.6); Glucose 111 mg/dL (65-115); Magnesium 1.9 mg/dL (1.7-2.3); NT Pro B Type Natriuretic Pept 7930 pg/mL (0-125); Osmolality Calculated 277 mOsm/kg (285-295); Phosphorus 2.2 mg/dL (2.5-4.5); Potassium 4.3 mmol/L (3.5-5.1); Sodium 128 mmol/L (136-145); Total Bilirubin 0.6 mg/dL (0.15-1.2); Total Protein 5.7 g/dL (6.6-8.7)
--- NOTE | 2020-12-11 07:00 | XRR_ITS ---
PROCEDURE INFORMATION: Exam: XR Chest, 1 View Exam date and time: 12/11/2020 5:57 AM Age: 65 years old Clinical indication: Abnormal findings; Abnormal diagnostic tests; Other: Not specified; Shortness of breath; Prior surgery; Surgery type: Open heart, pacemaker, valve; Patient HX: Edema, abnormal labs; Additional info: SOB TECHNIQUE: Imaging protocol: XR of the chest Views: Frontal portable upright view of the chest. COMPARISON: CR XR chest 1V portable [id number] 12/07/2020 6:11 AM FINDINGS: Tubes, catheters and devices: The patient is status post median sternotomy with intact sternal cerclage wires. Tricuspid and mitral valve prostheses redemonstrated. EKG leads are present overlying the chest. Lungs: The pulmonary vasculature is less congested and better defined. There is moderate interval improvement in bilateral pulmonary air space opacities in the central and mid-lower lung zones. Pleural space: Stable small bilateral pleural effusions. No pneumothorax. Heart/Mediastinum: Left atrial appendage occlusion device (AtriClip). Stable mild cardiomegaly. Mediastinum: Stable. Vasculature: Moderate aortic arch atherosclerotic calcification without ectasia. A dual lead left subclavian permanent pacemaker is present. The right atrial and right ventricular leads appear to be in good position. Bones/joints: Stable. XR/XR chest 1V portable [id number] IMPRESSION: 1. Improved pulmonary vascular congestion. 2. Improved pulmonary edema. 3. Stable small bilateral pleural effusions.
[2020-12-11] MEDS: escitalopram 10 mg Tablet 30 MG PO (08:20)
[2020-12-11] MEDS: amiodarone 200 mg Tablet PO (08:20)
[2020-12-11] MEDS: pantoprazole DR 40 mg Tablet PO (08:21)
[2020-12-11] MEDS: rivaroxaban 10 mg Tablet 15 MG PO (08:21)
[2020-12-11] MEDS: metoprolol tartrate 25 mg Tablet PO ×2 (08:21→19:36)
[2020-12-11] MEDS: potassium chloride ER 20 mEq Tablet 40 MEQ PO (08:22)
--- NOTE | 2020-12-11 08:22 | PM.PN ---
Subjective Subjective: Interval history: weak, swollen, no appetite, sob. + good uop Medications: Reviewed: Yes Medication Review Details: Current Medications Acetaminophen (Acetaminophen 325 Mg Tablet) 650 mg PO Q6H PRN PRN Reason: Mild/Mod Pain Or Temp >/= 101 Last Admin: 12/06/20 20:36 Dose: 650 mg Documented by: Amiodarone HCl (Amiodarone 200 Mg Tablet) 200 mg PO DAILY@0800 [facility] Last Admin: 12/10/20 08:49 Dose: 200 mg Documented by: Artificial Tears (Artificial Tears Op Soln 15 Ml Btl) 1 drop EYEAFF DAILY PRN PRN Reason: DRY EYE(S) Atorvastatin Calcium (Atorvastatin 40 Mg Tablet) 20 mg PO DAILY@1999 [facility] Last Admin: 12/10/20 21:11 Dose: 20 mg Documented by: Bisacodyl (Bisacodyl 10 Mg Supp) 10 mg DE DAILY PRN PRN Reason: Constipation Dextrose (Dextrose 50% Syringe 50 Ml) 25 ml IVP ONCE PRN; Protocol PRN Reason: hypoglycemia protocol Dextrose (Dextrose 50% Syringe 50 Ml) 50 ml IVP PRN PRN; Protocol PRN Reason: hypoglycemia protocol Escitalopram Oxalate (Escitalopram 10 Mg Tablet) 30 mg PO DAILY@0800 [facility] Last Admin: 12/10/20 08:49 Dose: 30 mg Documented by: Glucagon (Glucagon 1 Mg/Ml Inj 1 Ml) 1 mg IM ONCE PRN; Protocol PRN Reason: Adult Acute Hypoglycemia Prot. Haloperidol (Haloperidol 5 Mg Tablet) 5 mg PO BID PRN PRN Reason: AGITATION Last Admin: 12/11/20 00:21 Dose: 5 mg Documented by: Hydroxyzine Pamoate (Hydroxyzine 25 Mg Capsule) 25 mg PO TID PRN PRN Reason: Itching Last Admin: 12/10/20 06:43 Dose: 25 mg Documented by: Dextrose (D5w) 500 mls @ 100 mls/hr IV ONCE PRN; Protocol PRN Reason: Adult Acute Hypoglycemia Prot Dobutamine HCl/Dextrose (Dobutamine Drip) 500 mg in 250 mls @ 8.308 mls/hr IV .Q24H [facility] Last Admin: 12/11/20 00:21 Dose: 3 mcg/kg/min, 5 mls/hr Documented by: Furosemide 100 mg/ Sodium (Chloride) 50 mls @ 0 mls/hr IV .Q0M [facility]; Protocol Last Admin: 12/11/20 04:39 Dose: 15 mg/hr, 7.5 mls/hr Documented by: Norepinephrine Bitartrate 4 mg (/ Dextrose) 254 mls @ 0 mls/hr IV .Q0M [facility]; Protocol Insulin Aspart (Insulin Aspart 100 Unit/1 Ml) 0 unit SUBCUT TIDWM [facility]; Protocol Last Admin: 12/11/20 08:09 Dose: Not Given Documented by: Insulin Detemir (Insulin Detemir 100 Units/1 Ml) 10 unit SUBCUT DAILY@0600 [facility] Last Admin: 12/11/20 05:41 Dose: 10 unit Documented by: Levothyroxine Sodium (Levothyroxine 25 Mcg Tablet) 25 mcg PO QAM [facility] Last Admin: 12/11/20 05:41 Dose: 25 mcg Documented by: Lorazepam (Lorazepam 1 Mg Tablet) 1 mg PO BID PRN PRN Reason: ANXIETY Last Admin: 12/10/20 21:12 Dose: 1 mg Documented by: Magnesium Hydroxide (Magnesium Hydroxide 30 Ml Udc) 30 ml PO DAILY PRN PRN Reason: Constipation Last Admin: 12/08/20 05:50 Dose: 30 ml Documented by: Metoprolol Tartrate (Metoprolol Tartrate 25 Mg Tablet) 25 mg PO BID@08,1999 [facility] Last Admin: 12/10/20 21:12 Dose: 25 mg Documented by: Naloxone HCl (Naloxone 0.4 Mg/Ml Sdv) 0.1 mg IVP Q2M PRN PRN Reason: OPIATERV Non-Formulary Medication (Honey [Medihoney (Honey)]) 1 applic TOPICAL DAILY [facility] Last Admin: 12/10/20 08:50 Dose: Not Given Documented by: Nystatin (Nystatin Cream 30 Gm) 1 applic TOPICAL TID PRN PRN Reason: Rash Ondansetron HCl (Ondansetron 2 Mg/Ml Sdv 2 Ml) 4 mg IVP Q6H PRN PRN Reason: NAUSEA AND VOMITING Last Admin: 12/10/20 00:56 Dose: 4 mg Documented by: Pantoprazole Sodium (Pantoprazole Dr 40 Mg Tablet) 40 mg PO DAILY@0800 [facility] Last Admin: 12/10/20 08:50 Dose: 40 mg Documented by: Polyethylene Glycol (Polyethylene Glycol 3350 Pkt 17 Gm) 17 gm PO DAILY PRN PRN Reason: Constipation Potassium Chloride (Potassium Chloride Er 20 Meq Tablet) 40 meq PO DAILY [facility] Last Admin: 12/10/20 08:50 Dose: 40 meq Documented by: Rivaroxaban (Rivaroxaban 10 Mg Tablet) 15 mg PO DAILY@0800 [facility] Last Admin: 12/10/20 08:49 Dose: 15 mg Documented by: Sodium Phosphate (Fleet Enema 133 Ml Enema) 118 ml DE DAILY PRN PRN Reason: Constipation Vitals/I&O/Wt Last Vital Signs Temp 97.4 F L 12/11/20 02:00 Pulse 106 H 12/11/20 06:00 Resp 20 H 12/11/20 04:00 BP 101/77 12/11/20 04:00 Pulse Ox 97 12/11/20 04:00 12/10/20 12/11/20 12/11/20 22:59 06:59 14:59 Intake Total 687.166 / 1407.166 265.667 / 1672.833 Output Total 450 / 1025 1100 / 2125 Balance 237.166 / 382.166 -834.333 / -452.167 Weight last 48 hrs Weight 97.749 kg Weight 97.749 kg Physical Exam Narrative: EXAM NARRATIVE: uncomfortable, SOB in bed, NC 02 heent- nc/at, eomi neck supple lungs dull bases and crackles b/l heart reg, +HSM abd soft, nt, nd, +BS ext b/l 2+ edema neuro- a,a, o x 1-2 Urinary Catheter Management^: Slater: Cath Placed During This Visit: no Reason for Continuing Indwelling Catheter: Accurate Measurement of Urinary Output in Critically Ill Patients Data : 12/11/20 05:20 12/11/20 05:20 A&P Additional A&P Information 65 yr old female RT heart failure, MV and aortic valve disease, dialstolic dysfunction 1. 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 hyponatremia - CHF and CRS -fluid restrict 3. Pulm htn/ valvular heart disease -per cardiology- poor prognosis -monitor k and mag on diuretics 4. a fib 5. dM 6. uti 7. mild anemia 8. replace phos Attestations Medical Necessity Statement*: per cardiology and medicine Time Spent in Patient Care: 16 - 35 minutes Coding Level of Care Code Acute Stoker Erector And Servicer for Braeden Kuhn
--- NOTE | 2020-12-11 08:23 | P.PN_ITS ---
Subjective Subjective: Interval history: UO 2.1 L and -800 ml from yesterday and LOS-3.7 L. She complains of pain in her both knees. She continues to have poor response and states she wants to sleep. Medications: Reviewed: Yes Medication Review Details: Current Medications Acetaminophen (Acetaminophen 325 Mg Tablet) 650 mg PO Q6H PRN PRN Reason: Mild/Mod Pain Or Temp >/= 101 Last Admin: 12/06/20 20:36 Dose: 650 mg Documented by: Amiodarone HCl (Amiodarone 200 Mg Tablet) 200 mg PO DAILY@08 [facility] Last Admin: 12/10/20 08:49 Dose: 200 mg Documented by: Artificial Tears (Artificial Tears Op Soln 15 Ml Btl) 1 drop EYEAFF DAILY PRN PRN Reason: DRY EYE(S) Atorvastatin Calcium (Atorvastatin 40 Mg Tablet) 20 mg PO DAILY@1999 [facility] Last Admin: 12/10/20 21:11 Dose: 20 mg Documented by: Bisacodyl (Bisacodyl 10 Mg Supp) 10 mg NC DAILY PRN PRN Reason: Constipation Dextrose (Dextrose 50% Syringe 50 Ml) 25 ml IVP ONCE PRN; Protocol PRN Reason: hypoglycemia protocol Dextrose (Dextrose 50% Syringe 50 Ml) 50 ml IVP PRN PRN; Protocol PRN Reason: hypoglycemia protocol Escitalopram Oxalate (Escitalopram 10 Mg Tablet) 30 mg PO DAILY@08 [facility] Last Admin: 12/10/20 08:49 Dose: 30 mg Documented by: Glucagon (Glucagon 1 Mg/Ml Inj 1 Ml) 1 mg IM ONCE PRN; Protocol PRN Reason: Adult Acute Hypoglycemia Prot. Haloperidol (Haloperidol 5 Mg Tablet) 5 mg PO BID PRN PRN Reason: AGITATION Last Admin: 12/11/20 00:21 Dose: 5 mg Documented by: Hydroxyzine Pamoate (Hydroxyzine 25 Mg Capsule) 25 mg PO TID PRN PRN Reason: Itching Last Admin: 12/10/20 06:43 Dose: 25 mg Documented by: Dextrose (D5w) 500 mls @ 100 mls/hr IV ONCE PRN; Protocol PRN Reason: Adult Acute Hypoglycemia Prot Dobutamine HCl/Dextrose (Dobutamine Drip) 500 mg in 250 mls @ 8.308 mls/hr IV .Q24H [facility] Last Admin: 12/11/20 00:21 Dose: 3 mcg/kg/min, 5 mls/hr Documented by: Furosemide 100 mg/ Sodium (Chloride) 50 mls @ 0 mls/hr IV .Q0M [facility]; Protocol Last Admin: 12/11/20 04:39 Dose: 15 mg/hr, 7.5 mls/hr Documented by: Norepinephrine Bitartrate 4 mg (/ Dextrose) 254 mls @ 0 mls/hr IV .Q0M [facility]; Protocol Insulin Aspart (Insulin Aspart 100 Unit/1 Ml) 0 unit SUBCUT TIDWM [facility]; Protocol Last Admin: 12/11/20 08:09 Dose: Not Given Documented by: Insulin Detemir (Insulin Detemir 100 Units/1 Ml) 10 unit SUBCUT DAILY@0600 [facility] Last Admin: 12/11/20 05:41 Dose: 10 unit Documented by: Levothyroxine Sodium (Levothyroxine 25 Mcg Tablet) 25 mcg PO QAM [facility] Last Admin: 12/11/20 05:41 Dose: 25 mcg Documented by: Lorazepam (Lorazepam 1 Mg Tablet) 1 mg PO BID PRN PRN Reason: ANXIETY Last Admin: 12/10/20 21:12 Dose: 1 mg Documented by: Magnesium Hydroxide (Magnesium Hydroxide 30 Ml Udc) 30 ml PO DAILY PRN PRN Reason: Constipation Last Admin: 12/08/20 05:50 Dose: 30 ml Documented by: Metoprolol Tartrate (Metoprolol Tartrate 25 Mg Tablet) 25 mg PO BID@0800,1999 [facility] Last Admin: 12/10/20 21:12 Dose: 25 mg Documented by: Naloxone HCl (Naloxone 0.4 Mg/Ml Sdv) 0.1 mg IVP Q2M PRN PRN Reason: OPIATERV Non-Formulary Medication (Honey [Medihoney (Honey)]) 1 applic TOPICAL DAILY [facility] Last Admin: 12/10/20 08:50 Dose: Not Given Documented by: Nystatin (Nystatin Cream 30 Gm) 1 applic TOPICAL TID PRN PRN Reason: Rash Ondansetron HCl (Ondansetron 2 Mg/Ml Sdv 2 Ml) 4 mg IVP Q6H PRN PRN Reason: NAUSEA AND VOMITING Last Admin: 12/10/20 00:56 Dose: 4 mg Documented by: Pantoprazole Sodium (Pantoprazole Dr 40 Mg Tablet) 40 mg PO DAILY@0800 [facility] Last Admin: 12/10/20 08:50 Dose: 40 mg Documented by: Polyethylene Glycol (Polyethylene Glycol 3350 Pkt 17 Gm) 17 gm PO DAILY PRN PRN Reason: Constipation Potassium Chloride (Potassium Chloride Er 20 Meq Tablet) 40 meq PO DAILY [facility] Last Admin: 12/10/20 08:50 Dose: 40 meq Documented by: Rivaroxaban (Rivaroxaban 10 Mg Tablet) 15 mg PO DAILY@0800 [facility] Last Admin: 12/10/20 08:49 Dose: 15 mg Documented by: Sodium Phosphate (Fleet Enema 133 Ml Enema) 118 ml NC DAILY PRN PRN Reason: Constipation Vitals/I&O/Wt Last Vital Signs Temp 97.4 F L 12/11/20 02:00 Pulse 106 H 12/11/20 06:00 Resp 20 H 12/11/20 04:00 BP 101/77 12/11/20 04:00 Pulse Ox 97 12/11/20 04:00 12/10/20 12/11/20 12/11/20 22:59 06:59 14:59 Intake Total 687.166 / 1407.166 265.667 / 1672.833 Output Total 450 / 1025 1100 / 2125 Balance 237.166 / 382.166 -834.333 / -452.167 Weight last 48 hrs Weight 215 lb 8 oz Weight 215 lb 8 oz Physical Exam Narrative: EXAM NARRATIVE: EXAM NARRATIVE: Const: COMMON NORMALS: no acute distress, patient oriented x3 and alert GENERAL APPEARANCE: cooperative, comfortable and well [facility] COMMON NORMALS: normocephalic, atraumatic, hearing grossly normal bilaterally and external ears normal HEAD & SCALP: normocephalic and atraumatic FACE & SINUS: normal facial exam and no edema EXTERNAL EAR: Yes external ears normal Eye COMMON NORMALS: Equal, round and reactive pupils present, EOMs intact bilaterally, conjunctivae normal and no scleral icterus GENERAL EYE: appearance normal, both eyes and all related structures ALIGNMENT: Yes alignment normal EYELID: eyelids normal CONJUNCTIVA: Yes conjunctivae normal SCLERA: sclerae normal PUPIL: Yes Equal, round and reactive pupils present Neck/C-Spine COMMON NORMALS: supple and Thyroid normal GENERAL: Yes normal visual inspection, Yes trachea midline and No Mass present (neck) THYROID: Thyroid normal CAROTIDS: Yes normal carotid upstroke CERVICAL SPINE: Yes cervical ROM normal Chest COMMONS NORMALS: normal inspection of the chest and normal palpation of entire chest wall CHEST: Yes Symmetrical chest wall rise, No mass, No tenderness, + Surgical scars present (Chest) of sternotomy and No rash, left upper chest permanent pacemaker in place Resp COMMON NORMALS: clear to auscultation bilaterally EFFORT & INSPECTION: Yes able to speak in complete sentences, No respiratory distress and No labored AUSCULTATION: clear to auscultation bilaterally, decreased breath sounds at bases, no wheezes and vesicular breath sounds Cardio COMMON NORMALS: S1 and S2 irregular of variable intensity JUGULAR VENOUS DISTENTION: JVD PALPATION: normal PMI RHYTHM: abnormal rhythm irregularly irregular HEART SOUNDS: S1 normal heart sound present, S2 normal heart sound present, no gallops and no murmurs BRUITS: no abdominal aortic bruits, no carotid bruits and no femoral bruits PERIPHERAL PULSES: Peripheral pulses 2+ throughout, radial pulses present, posterior tibial pulses present and dorsalis pedis present GI COMMON NORMALS: Soft to palpation AUSCULTATION: Yes normoactive bowel sounds PALPATION: Yes Soft to palpation, No Tenderness to palpation present (GI), No Guarding due to palpation present (GI), No Rigid due to palpation, Extremity GENERAL: No calf tenderness, No clubbing, Yes edema (4+ edema extending above knees), weeping legs. Left shoulder pain Neuro COMMON NORMALS: patient oriented x3 SENSORIUM/ORIENTATION: Yes drowsy but arousable Psych APPEARANCE: Yes well kempt MOOD & AFFECT: Yes depressed mood Urinary Catheter Management^: Slater: Cath Placed During This Visit: no Reason for Continuing Indwelling Catheter: Accurate Measurement of Urinary Output in Critically Ill Patients Data : 12/11/20 05:20 12/11/20 05:20 A&P Assessment and plan (1) Right heart failure: Patient has chronic RV failure with elevated JVD and peripheral edema. -She has markedly dilated RV with severely decreased RV function and severe pHTN. Septal flattening in systole and diastole consistent with RV volume and pressure overload. [place] forming RV and RV: LV >1. -Her LV filling is volume dependant and both increase or decrease in volume can impair LV filling and CO.(Ventricular interdependance) -continue Dobutamine at 5 mcg; she may need levophed along with that. -started on lasix drip 10 mg/hr after 80 mg iv x 1. uptitrate to 20 mg/hr. Patient has a poor overall prognosis. I will talk to family about the same. Status: Acute Qualifiers: Heart failure chronicity: acute on chronic Qualified Code(s): I50.813 - Acute on chronic right heart failure (2) Acute kidney injury superimposed on chronic kidney disease: Creatinine from 2.1-2 today and BUN has decreased from 46-42. -Nephrology on board. Status: Acute (3) Atrial fibrillation: Permanent A. fib on metoprolol, Xarelto held since admission and amiodaron e. -A. fib ablation offered to patient in past and was declined. Status: Acute (4) Pulmonary hypertension: Severe pHTN WHO group 2 -unfortunately PH directed therapy has not been very beneficial in this group. Status: Acute (5) CKD (chronic kidney disease) stage 4, GFR 15-29 ml/min: Status: Chronic (6) H/O tricuspid valve annuloplasty: Status: Acute (7) Status post mitral valve annuloplasty: Status: Acute (8) Diabetes: Status: Chronic Additional A&P Information PPM in situ Hyponatremia: portends poor prognosis Severe Depression Anemia of ID and CKD Thrombocytopenia Generalized weakness and Deconditioning Depression Thank you for allowing me to participate in patient's care. Please feel free to call with questions or concerns. Attestations Medical Necessity Statement*: needs hospital stay for CHF and SANDY on CKD Time Spent in Patient Care: Greater than 35 minutes (>than 50% of time spent in counselling and/or direct pt care on unit) . Critical Care Time: Critical Care Time (min): 40 Coding Level of Care Code Acute Publicity Expert for [facility] Fwd Diagnoses Right heart failure I50.813 Heart failure chronicity: acute on chronic Acute kidney injury superimposed on chronic kidney disease N17.9; N18.9 Atrial fibrillation I48.91 Pulmonary hypertension I27.20 CKD (chronic kidney disease) stage 4, GFR 15-29 ml/min N18.4 H/O tricuspid valve annuloplasty Z98.890 Status post mitral valve annuloplasty Z98.890 Diabetes E11.9
--- NOTE | 2020-12-11 08:48 | PC.NURSE ---
Order change received for POtassium chloride while it was being administered. 40 meq given, but order was changed to 20 meq. Nurse is not giving the new 20meq order since 40 was already given.
--- NOTE | 2020-12-11 11:05 | PM.PN ---
Subjective Subjective: Interval history: This morning, patient was examined, she had no acute events overnight, her urine output has improved with the Lasix drip, continues to have generalized edema, but improved, no significant shortness of breath, patient tells me that she has no complaints, she is quite withdrawn, poor eye contact, tells me that she wants to go back to sleep Medications: Reviewed: Yes Medication Review Details: Current Medications Acetaminophen (Acetaminophen 325 Mg Tablet) 650 mg PO Q6H PRN PRN Reason: Mild/Mod Pain Or Temp >/= 101 Last Admin: 12/06/20 20:36 Dose: 650 mg Documented by: Amiodarone HCl (Amiodarone 200 Mg Tablet) 200 mg PO DAILY@0800 [facility] Last Admin: 12/10/20 08:49 Dose: 200 mg Documented by: Artificial Tears (Artificial Tears Op Soln 15 Ml Btl) 1 drop EYEAFF DAILY PRN PRN Reason: DRY EYE(S) Atorvastatin Calcium (Atorvastatin 40 Mg Tablet) 20 mg PO DAILY@1999 [facility] Last Admin: 12/10/20 21:11 Dose: 20 mg Documented by: Bisacodyl (Bisacodyl 10 Mg Supp) 10 mg IA DAILY PRN PRN Reason: Constipation Dextrose (Dextrose 50% Syringe 50 Ml) 25 ml IVP ONCE PRN; Protocol PRN Reason: hypoglycemia protocol Dextrose (Dextrose 50% Syringe 50 Ml) 50 ml IVP PRN PRN; Protocol PRN Reason: hypoglycemia protocol Escitalopram Oxalate (Escitalopram 10 Mg Tablet) 30 mg PO DAILY@0800 [facility] Last Admin: 12/10/20 08:49 Dose: 30 mg Documented by: Glucagon (Glucagon 1 Mg/Ml Inj 1 Ml) 1 mg IM ONCE PRN; Protocol PRN Reason: Adult Acute Hypoglycemia Prot. Haloperidol (Haloperidol 5 Mg Tablet) 5 mg PO BID PRN PRN Reason: AGITATION Last Admin: 12/11/20 00:21 Dose: 5 mg Documented by: Hydroxyzine Pamoate (Hydroxyzine 25 Mg Capsule) 25 mg PO TID PRN PRN Reason: Itching Last Admin: 12/10/20 06:43 Dose: 25 mg Documented by: Dextrose (D5w) 500 mls @ 100 mls/hr IV ONCE PRN; Protocol PRN Reason: Adult Acute Hypoglycemia Prot Dobutamine HCl/Dextrose (Dobutamine Drip) 500 mg in 250 mls @ 8.308 mls/hr IV .Q24H [facility] Last Admin: 12/11/20 00:21 Dose: 3 mcg/kg/min, 5 mls/hr Documented by: Furosemide 100 mg/ Sodium (Chloride) 50 mls @ 0 mls/hr IV .Q0M [facility]; Protocol Last Admin: 12/11/20 04:39 Dose: 15 mg/hr, 7.5 mls/hr Documented by: Norepinephrine Bitartrate 4 mg (/ Dextrose) 254 mls @ 0 mls/hr IV .Q0M [facility]; Protocol Insulin Aspart (Insulin Aspart 100 Unit/1 Ml) 0 unit SUBCUT TIDWM [facility]; Protocol Last Admin: 12/11/20 08:09 Dose: Not Given Documented by: Insulin Detemir (Insulin Detemir 100 Units/1 Ml) 10 unit SUBCUT DAILY@0600 [facility] Last Admin: 12/11/20 05:41 Dose: 10 unit Documented by: Levothyroxine Sodium (Levothyroxine 25 Mcg Tablet) 25 mcg PO QAM [facility] Last Admin: 12/11/20 05:41 Dose: 25 mcg Documented by: Lorazepam (Lorazepam 1 Mg Tablet) 1 mg PO BID PRN PRN Reason: ANXIETY Last Admin: 12/10/20 21:12 Dose: 1 mg Documented by: Magnesium Hydroxide (Magnesium Hydroxide 30 Ml Udc) 30 ml PO DAILY PRN PRN Reason: Constipation Last Admin: 12/08/20 05:50 Dose: 30 ml Documented by: Metoprolol Tartrate (Metoprolol Tartrate 25 Mg Tablet) 25 mg PO BID@0800,1999 [facility] Last Admin: 12/10/20 21:12 Dose: 25 mg Documented by: Naloxone HCl (Naloxone 0.4 Mg/Ml Sdv) 0.1 mg IVP Q2M PRN PRN Reason: OPIATERV Non-Formulary Medication (Honey [Medihoney (Honey)]) 1 applic TOPICAL DAILY [facility] Last Admin: 12/10/20 08:50 Dose: Not Given Documented by: Nystatin (Nystatin Cream 30 Gm) 1 applic TOPICAL TID PRN PRN Reason: Rash Ondansetron HCl (Ondansetron 2 Mg/Ml Sdv 2 Ml) 4 mg IVP Q6H PRN PRN Reason: NAUSEA AND VOMITING Last Admin: 12/10/20 00:56 Dose: 4 mg Documented by: Pantoprazole Sodium (Pantoprazole Dr 40 Mg Tablet) 40 mg PO DAILY@0800 [facility] Last Admin: 12/10/20 08:50 Dose: 40 mg Documented by: Polyethylene Glycol (Polyethylene Glycol 3350 Pkt 17 Gm) 17 gm PO DAILY PRN PRN Reason: Constipation Potassium Chloride (Potassium Chloride Er 20 Meq Tablet) 40 meq PO DAILY [facility] Last Admin: 12/10/20 08:50 Dose: 40 meq Documented by: Rivaroxaban (Rivaroxaban 10 Mg Tablet) 15 mg PO DAILY@0800 [facility] Last Admin: 12/10/20 08:49 Dose: 15 mg Documented by: Sodium Phosphate (Fleet Enema 133 Ml Enema) 118 ml IA DAILY PRN PRN Reason: Constipation Vitals/I&O/Wt Last Vital Signs Temp 97.6 F 12/11/20 08:00 Pulse 108 H 12/11/20 08:00 Resp 24 H 12/11/20 08:00 BP 103/60 12/11/20 08:00 Pulse Ox 97 12/11/20 08:00 12/10/20 12/11/20 12/11/20 22:59 06:59 14:59 Intake Total 687.166 / 1407.166 265.667 / 1672.833 Output Total 450 / 1025 1100 / 2125 350 / 350 Balance 237.166 / 382.166 -834.333 / -452.167 -350 / -350 Weight last 48 hrs Weight 97.749 kg Weight 97.749 kg Physical Exam Narrative: EXAM NARRATIVE: Generalized anasarca Const: COMMON NORMALS: no acute distress and patient oriented x3 HENMT: COMMON NORMALS: normocephalic HEAD & SCALP: normocephalic Neck/C-Spine: COMMON NORMALS: no JVD Resp: COMMON NORMALS: normal respiratory effort, No retractions, No use of accessory muscles and clear to auscultation bilaterally AUSCULTATION: clear to auscultation bilaterally Cardio: COMMON NORMALS: no JVD, regular rate, regular rhythm, S1 normal heart sound present and S2 normal heart sound present RATE: regular rate RHYTHM: regular rhythm HEART SOUNDS: S1 normal heart sound present and S2 normal heart sound present GI: COMMON NORMALS: Normal to inspection, nondistended, normoactive bowel sounds present, Soft to palpation, non-tender, No hepatosplenomegaly present, no masses and no bruits PALPATION: Yes Soft to palpation and Yes No hepatosplenomegaly present Extremity: COMMON NORMALS: capillary refill normal, no clubbing, cyanosis or edema and no calf tenderness NARRATIVE EXTREMITY EXAM: 1+ pitting edema Neuro: COMMON NORMALS: patient oriented x3 Psych: COMMON NORMALS: mental status grossly normal ACTIVITY/MOTOR BEHAVIOR: Yes Avoids eye contact (attititude/behavior) MOOD & AFFECT: Yes depressed mood Skin: NARRATIVE SKIN EXAM: Generalized anasarca Urinary Catheter Management^: Slater: Cath Placed During This Visit: no Reason for Continuing Indwelling Catheter: Accurate Measurement of Urinary Output in Critically Ill Patients Data : 12/11/20 05:20 12/11/20 05:20 A&P Assessment and plan (1) Anasarca: -Likely secondary to diastolic CHF, right-sided heart failure, pulmonary hypertension -has gained roughly 10 pounds in the last few days, weight on last admission was 83 kg, weight on admission was 90.6 kg -Echocardiogram from October 30, 2020 shows: Small left ventricular cavity size. Normal left ventricular cavity size. Left ventricular ejection fraction is estimated at 55 %. Flattened septum in diastole consistent with right ventricle volume overload. 2-Severely increased right ventricular size. Severely decreased right ventricular systolic function. Moderate pulmonary hypertension, RVSP 65 mmHg. 3-Severely increased right atrial size. 4-Moderately increased left atrial size. 5-Severely thickened mitral valve. Severe mitral annular calcification. No mitral valve stenosis. Moderate to severe mitral valve regurgitation. 6-Severe aortic valve calcification. Moderate aortic valve stenosis, mean gradient, aortic valve is not well-visualized therefore cannot assess gradient on aortic valve area however appears to be moderately stenotic. 7-Structurally normal tricuspid valve without significant stenosis or regurgitation. Pulmonary artery systolic pressure is normal. 8-There is no pericardial effusion. 9-Right atrial pressure is around 20 mm of mercury. -Urine output has improved to over 2 continues to have diffuse anasarca but improved, she is -4 L, serum sodium 128, potassium 4.3 Plan: -Fluid restrictions -Daily weights -Currently in ICU, receiving dobutamine drip, Lasix drip -Monitor creatinine and urine output closely -Cardiology on consult -Nephrology on consult -On last admission patient had SANDY secondary to diuretics, hypoperfusion, has chronic hypotension, prerenal azotemia will start slow diuretic therapy and monitor her clinical response as she has CKD Plan for today, Lasix drip, dobutamine drip, monitor urine output, encourage to get up out of bed Status: Acute (2) Hyponatremia: Monitor sodium levels closely given diuresis, serum sodium 128 Status: Acute (3) CKD (chronic kidney disease) stage 4, GFR 15-29 ml/min: Creatinine up to 1.9 today. Hypertension. Status: Chronic (4) Pulmonary hypertension: Status: Acute (5) Right heart failure: Status: Acute Qualifiers: Heart failure chronicity: acute on chronic Qualified Code(s): I50.813 - Acute on chronic right heart failure (6) Pleural effusion: Status: Acute (7) Atrial fibrillation: Continue amiodarone I have resumed Xarelto Status: Acute (8) Diabetes: Low-dose sliding scale Levemir 10 units in the morning Status: Chronic (9) Diastolic CHF: Status: Acute (10) Pacemaker: Status: Acute (11) H/O tricuspid valve annuloplasty: Status: Acute (12) Status post mitral valve annuloplasty: Status: Acute (13) Urinary tract infection: -De-escalate to Bactrim -Follow urine cultures, blood cultures -CT scan of the abdomen pelvis does not show any obstructive uropathy or pyelonephritis Status: Acute (14) Chronic hypotension: -Has chronic hypotension on midodrine, -Does have a UTI -Continue midodrine for now Status: Acute (15) Cellulitis of left wrist: -X-ray of the wrist shows cellulitis, improving, de-escalate to doxycycline and Bactrim Status: Acute (16) Thrombocytopenia: -Likely secondary to fatty liver disease, and liver cirrhosis, CT scan of the abdomen shows liver irregularity suggesting liver cirrhosis, -For now Xarelto continued, no signs of bleeding -Monitor for bleeding -SCDs for DVT prophylaxis Status: Acute (17) Suicidal ideation: -Has suicidal ideation, no active ideation, no plan -We will have Dr. Gilman see patient -Also has poor appetite, decreased willingness to participate in activities, does not want to do physical therapy, does not want to move -Unfortunately seems like Lizzie has just given up, she is not willing to participate in physical therapy, she is not willing to move, she denies been willing to change the channel on television, she just wants to be left alone, given her severe anasarca, and immobility, fluid will tend to reaccumulate in her legs and her lungs, the severe recurring phenomenon, recurring admission, high risk of morbidity and mortality, high risk of DVTs and PEs, UTIs, pneumonias, sepsis, septic shock -Patient's brother states that ultimately it is her decision to make about hospice, will have to reach out to psychiatry team to ensure that she can make decisions for herself given her suicidal ideation -Today again patient is unwilling to participate in physical therapy, getting up out of bed Status: Acute Additional A&P Information Has chronic hypotension, is on midodrine, likely related to right-sided heart failure Attestations Medical Necessity Statement*: Patient requires hospitalization, for diffuse anasarca, right-sided heart failure, requiring dobutamine drip, Lasix drip, hyponatremia, continues to have depression, Coding Level of Care Code Acute Vacation Guide for [facility] Fwd Diagnoses Anasarca R60.1 Hyponatremia E87.1 CKD (chronic kidney disease) stage 4, GFR 15-29 ml/min N18.4 Pulmonary hypertension I27.20 Right heart failure I50.813 Heart failure chronicity: acute on chronic Pleural effusion J90 Atrial fibrillation I48.91 Diabetes E11.9 Diastolic CHF I50.30 Pacemaker Z95.0 H/O tricuspid valve annuloplasty Z98.890 Status post mitral valve annuloplasty Z98.890 Urinary tract infection N39.0 Chronic hypotension I95.89 Cellulitis of left wrist L03.114 Thrombocytopenia D69.6 Suicidal ideation R45.851
[2020-12-11 11:57] LABS: Glucose Point of Care 88 mg/dL (70-110)
[2020-12-11] MEDS: FUROsemide 100 MG in sodium chloride 0.9% 40 ML 20 MG IV (14:29)
[2020-12-11 17:07] LABS: Glucose Point of Care 163 mg/dL (70-110)
[2020-12-11] MEDS: atorvastatin 40 mg Tablet 20 MG PO (19:36)
--- NOTE | 2020-12-11 19:49 | PC.NURSE ---
assessment AO x4, follows commands, 3+ pitting edema BLE below knee 2+ pitting to BLE above knee, lungs CTA, denies SOB, supine 45 degrees call light within reach
[2020-12-12] VITALS (41 sets, daily range): BP systolic 85–164; BP diastolic 56–98; PULSE 82–114; RESP 12–37; TEMP 36.3–36.6; O2SAT 97–100
[2020-12-12 03:48] LABS: Basophils # 0.1 10^3/uL (0.0-0.1); Basophils % 1.1 %; Eosinophils % 0.2 %; Hematocrit 33.1 % (37.0-47.0); Hemoglobin 10.4 g/dL (11.5-15.3); Lymphocytes # 0.6 10^3/uL (0.8-4.8); Lymphocytes % 13.2 %; Mean Corpuscular HGB Conc 31.4 g/dL (30.0-36.0); Mean Corpuscular Hemoglobin 25.4 pg (28.0-34.0); Mean Corpuscular Volume 80.9 fL (81-99); Mean Platelet Volume 12.2 fL (7.4-10.4); Monocytes # 0.5 10^3/uL (0.2-0.9); Monocytes % 11.5 %; Neutrophils # 3.38 10^3/uL (1.8-7.7); Neutrophils % 73.1 %; Nucleated Red Blood Cells % 0 %; Platelet Count 102 10^3/cmm (130-400); Red Blood Count 4.09 10^6/uL (4.1-5.3); Red Cell Distribution Width 21.1 % (12.1-15.1); White Blood Count 4.6 10^3/uL (4.0-10.0)
[2020-12-12 04:02] LABS: INR 1.85 (0.8-1.2)
[2020-12-12 04:16] LABS: Alanine Aminotransferase < 5 U/L (0-33); Albumin Level 2.6 g/dL (3.5-5.2); Alkaline Phosphatase 127 IU/L (35-105); Aspartate Amino Transferase 14 U/L (0-32); Blood Urea Nitrogen 44 mg/dL (8-23); Calcium 8.2 mg/dL (8.5-10.5); Carbon Dioxide 29 mmol/L (22-29); Chloride 93 mmol/L (98-107); Glomerular Filtration Rate 30.2 mL/min (90-130); Glucose 95 mg/dL (65-115); NT Pro B Type Natriuretic Pept 7597 pg/mL (0-125); Osmolality Calculated 283 mOsm/kg (285-295); Phosphorus 2.1 mg/dL (2.5-4.5); Sodium 131 mmol/L (136-145); Thyroid Stimulating Hormone 5.71 uIU/mL (0.27-4.20); Total Bilirubin 0.6 mg/dL (0.15-1.2); Total Protein 5.6 g/dL (6.6-8.7)
[2020-12-12 04:32] LABS: Anion Gap 12.4 (5-19)
[2020-12-12 04:33] LABS: Potassium 3.4 mmol/L (3.5-5.1)
[2020-12-12] MEDS: levothyroxine 25 mcg Tablet PO (05:46)
--- NOTE | 2020-12-12 07:00 | XRR_ITS ---
PROCEDURE INFORMATION: Exam: XR Chest, 1 View Exam date and time: 12/12/2020 4:43 AM Age: 65 years old Clinical indication: Shortness of breath; Prior surgery; Surgery type: Open heart pacemaker valve; Additional info: SOB TECHNIQUE: Imaging protocol: XR of the chest Views: 1 view. COMPARISON: CR (CHEST, ) 12/11/2020 5:42 AM FINDINGS: Lungs: Patchy interstitial and alveolar airspace disease within the right greater than left lung. Minimal change. Subpulmonic effusion on the right. Pleural space: See Lungs finding. Heart/Mediastinum: Cardiomegaly. Vasculature: Pacemaker via a left subclavian approach. Bones/joints: Prior sternotomy. XR/XR chest 1V portable [id number] IMPRESSION: Cardiomegaly. Mild edema. Patchy interstitial and alveolar airspace disease within the right greater than left lung. Minimal change. Subpulmonic effusion on the right.
--- NOTE | 2020-12-12 08:34 | P.PN_ITS ---
Subjective Subjective: Interval history: still swollen, less SOB. weak Medications: Reviewed: Yes Medication Review Details: Current Medications Acetaminophen (Acetaminophen 325 Mg Tablet) 650 mg PO Q6H PRN PRN Reason: Mild/Mod Pain Or Temp >/= 101 Last Admin: 12/06/20 20:36 Dose: 650 mg Documented by: Amiodarone HCl (Amiodarone 200 Mg Tablet) 200 mg PO DAILY@0800 [facility] Last Admin: 12/11/20 08:20 Dose: 200 mg Documented by: Artificial Tears (Artificial Tears Op Soln 15 Ml Btl) 1 drop EYEAFF DAILY PRN PRN Reason: DRY EYE(S) Atorvastatin Calcium (Atorvastatin 40 Mg Tablet) 20 mg PO DAILY@1999 [facility] Last Admin: 12/11/20 19:36 Dose: 20 mg Documented by: Bisacodyl (Bisacodyl 10 Mg Supp) 10 mg [place] DAILY PRN PRN Reason: Constipation Dextrose (Dextrose 50% Syringe 50 Ml) 25 ml IVP ONCE PRN; Protocol PRN Reason: hypoglycemia protocol Dextrose (Dextrose 50% Syringe 50 Ml) 50 ml IVP PRN PRN; Protocol PRN Reason: hypoglycemia protocol Escitalopram Oxalate (Escitalopram 10 Mg Tablet) 30 mg PO DAILY@0800 [facility] Last Admin: 12/11/20 08:20 Dose: 30 mg Documented by: Glucagon (Glucagon 1 Mg/Ml Inj 1 Ml) 1 mg IM ONCE PRN; Protocol PRN Reason: Adult Acute Hypoglycemia Prot. Haloperidol (Haloperidol 5 Mg Tablet) 5 mg PO BID PRN PRN Reason: AGITATION Last Admin: 12/11/20 00:21 Dose: 5 mg Documented by: Hydroxyzine Pamoate (Hydroxyzine 25 Mg Capsule) 25 mg PO TID PRN PRN Reason: Itching Last Admin: 12/10/20 06:43 Dose: 25 mg Documented by: Dextrose (D5w) 500 mls @ 100 mls/hr IV ONCE PRN; Protocol PRN Reason: Adult Acute Hypoglycemia Prot Dobutamine HCl/Dextrose (Dobutamine Drip) 500 mg in 250 mls @ 8.308 mls/hr IV .Q24H [facility] Last Admin: 12/12/20 01:47 Dose: Not Given Documented by: Furosemide 100 mg/ Sodium (Chloride) 50 mls @ 0 mls/hr IV .Q0M [facility]; Protocol Last Admin: 12/11/20 14:29 Dose: 40 mg/hr, 20 mls/hr Documented by: Norepinephrine Bitartrate 4 mg (/ Dextrose) 254 mls @ 0 mls/hr IV .Q0M [facility]; Protocol Lidocaine HCl 5 ml/ Potassium (Chloride) 105 mls @ 25 mls/hr IV ONCE ONE Stop: 12/12/20 12:42 Insulin Aspart (Insulin Aspart 100 Unit/1 Ml) 0 unit SUBCUT TIDWM [facility]; Protocol Last Admin: 12/11/20 18:33 Dose: 2 unit Documented by: Insulin Detemir (Insulin Detemir 100 Units/1 Ml) 10 unit SUBCUT DAILY@0600 [facility] Last Admin: 12/12/20 05:46 Dose: 10 unit Documented by: Levothyroxine Sodium (Levothyroxine 25 Mcg Tablet) 25 mcg PO QAM [facility] Last Admin: 12/12/20 05:46 Dose: 25 mcg Documented by: Lorazepam (Lorazepam 1 Mg Tablet) 1 mg PO BID PRN PRN Reason: ANXIETY Last Admin: 12/10/20 21:12 Dose: 1 mg Documented by: Magnesium Hydroxide (Magnesium Hydroxide 30 Ml Udc) 30 ml PO DAILY PRN PRN Reason: Constipation Last Admin: 12/08/20 05:50 Dose: 30 ml Documented by: Metoprolol Tartrate (Metoprolol Tartrate 25 Mg Tablet) 25 mg PO BID@08,1999 [facility] Last Admin: 12/11/20 19:36 Dose: 25 mg Documented by: Naloxone HCl (Naloxone 0.4 Mg/Ml Sdv) 0.1 mg IVP Q2M PRN PRN Reason: OPIATERV Non-Formulary Medication (Honey [Medihoney (Honey)]) 1 applic TOPICAL DAILY [facility] Last Admin: 12/11/20 08:47 Dose: Not Given Documented by: Nystatin (Nystatin Cream 30 Gm) 1 applic TOPICAL TID PRN PRN Reason: Rash Ondansetron HCl (Ondansetron 2 Mg/Ml Sdv 2 Ml) 4 mg IVP Q6H PRN PRN Reason: NAUSEA AND VOMITING Last Admin: 12/10/20 00:56 Dose: 4 mg Documented by: Pantoprazole Sodium (Pantoprazole Dr 40 Mg Tablet) 40 mg PO DAILY@0800 [facility] Last Admin: 12/11/20 08:21 Dose: 40 mg Documented by: Polyethylene Glycol (Polyethylene Glycol 3350 Pkt 17 Gm) 17 gm PO DAILY PRN PRN Reason: Constipation Potassium Chloride (Potassium Chloride Er 20 Meq Tablet) 20 meq PO DAILY [facility] Last Admin: 12/11/20 08:48 Dose: Not Given Documented by: Rivaroxaban (Rivaroxaban 10 Mg Tablet) 15 mg PO DAILY@0800 [facility] Last Admin: 12/11/20 08:21 Dose: 15 mg Documented by: Vitals/I&O/Wt Last Vital Signs Temp 97.6 F 12/12/20 06:19 Pulse 92 12/12/20 04:00 Resp 20 H 12/12/20 04:00 BP 95/76 12/12/20 04:00 Pulse Ox 98 12/12/20 04:00 12/11/20 12/12/20 12/12/20 22:59 06:59 14:59 Intake Total 480 / 530 Output Total 500 / 1050 1200 / 2250 Balance -20 / -520 -1200 / -1720 Weight last 48 hrs Weight 99.337 kg Weight 97.749 kg Weight 97.749 kg Physical Exam Narrative: EXAM NARRATIVE: off pressers, on dobutamine and lasix drips. good uop and diuresis much more comfortable in bed, NC 02 -2l ansd pulse ox 98% heent- nc/at, eomi neck supple lungs dull bases and crackles b/l heart reg, +HSM abd soft, nt, nd, +BS ext b/l 2+ edema neuro- a,a, o x 2+ Urinary Catheter Management^: Slater: Cath Placed During This Visit: no Reason for Continuing Indwelling Catheter: Accurate Measurement of Urinary Output in Critically Ill Patients Data : 12/12/20 03:19 12/12/20 03:19 A&P Additional A&P Information 65 yr old female RT heart failure, MV and aortic valve disease, dialstolic dysfunction 1. 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 hyponatremia - CHF and CRS -fluid restrict -na improving w/ chf management 3. Pulm htn/ valvular heart disease -per cardiology- poor prognosis -monitor k and mag on diuretics -bnp remains elevated at [id number] 4. a fib -on amiodarone 5. dM 6. uti -citrobacter youngae 11-29-20-per hospitalist 7. mild anemia 8. replace potassium and phos Attestations Medical Necessity Statement*: severe chf, ckd, electrolyte abnormalities Time Spent in Patient Care: 16 - 35 minutes Coding Level of Care Code Acute Cardiac Cath Tech for Braeden Kuhn
[2020-12-12 08:40] LABS: Glucose Point of Care 85 mg/dL (70-110)
[2020-12-12] MEDS: escitalopram 10 mg Tablet 30 MG PO (08:48)
[2020-12-12] MEDS: metoprolol tartrate 25 mg Tablet PO ×2 (08:49→19:57)
[2020-12-12] MEDS: amiodarone 200 mg Tablet PO (08:49)
[2020-12-12] MEDS: pantoprazole DR 40 mg Tablet PO (08:49)
[2020-12-12] MEDS: rivaroxaban 10 mg Tablet 15 MG PO (08:50)
[2020-12-12] MEDS: potassium chloride ER 20 mEq Tablet PO (08:52)
--- NOTE | 2020-12-12 09:10 | PC.CHAP ---
Pastoral Care Encounter/Spiritual Assessment Type of Contact [] Declined ict help desk technician visit [] Patient/Family/Request visit [] Outpatient visit [] Follow-up visit [] Physician referral [] Code/Alert [] Routine visit [] Staff referral [] Actively dying [] Patient sleeping [] Family support [] [] Out of room [] Palliative care [] [] Receiving care in room [] Pre-surgical visit [] Trauma [] Long length of stay [x] ICU visit [] Other: Relational/Emotional Strength [] Patient feels connected with others/family/visitors/staff [] Distress [] Loneliness/isolation [] Abandonment Spirituality of Patient [] Person of Katlyn [] Attends Restorationist of their Katlyn [] Believes in Prayer [] Reads Bible or Yazidi materials [] There are Spiritual issues to be addressed Service Coordinator Elderly Facility Interventions [x] Prayer [] Active listening [] Non-anxious presence [] Spiritual/emotional support [] Crisis/trauma care [] Spiritual counseling [] Bereavement support [] Provided bereavement packet [] Provided Bible/devotional materials [] Provided toy/stuffed animal, coloring book to patient or family member [] Provided Communion [] Anointing/Wheeler [] Salvation [x] Completed spiritual assessment [] Other: Impact on Illness or Injury [] Angry [] Fearful [] Anxious [] Often cries [] Exhaustion [] Unable to work [] Unable to attend temple [] Unable to walk/stand [] Unable to read [] Unable to drive [] Unable to eat/drink [] Unable to sleep [] Unable to be with family [] Patient intubated [] Other: Summary Time spent with patient
--- NOTE | 2020-12-12 09:23 | PC.NURSE ---
Rounded with Dr bains. Dr bains decided not to do the PICC line today. One was planned, but the patient's blood pressure and map has maintained within normal limits. No levophed given.
[2020-12-12] MEDS: DOBUTamine drip 500 MG/250 ML PREMIX IV (10:14)
--- NOTE | 2020-12-12 10:51 | PM.PN ---
Subjective Subjective: Interval history: Patient was examined this morning, she tells me that she is tired, she wants to go back to sleep, she tells me that her sleep was interrupted multiple times during the night, she again has no complaints, no fevers, no chills, no nausea, no vomiting, no chest pain, still has some degree of a poor appetite yesterday, agreeable to get up into a chair today Medications: Reviewed: Yes Medication Review Details: Current Medications Acetaminophen (Acetaminophen 325 Mg Tablet) 650 mg PO Q6H PRN PRN Reason: Mild/Mod Pain Or Temp >/= 101 Last Admin: 12/06/20 20:36 Dose: 650 mg Documented by: Amiodarone HCl (Amiodarone 200 Mg Tablet) 200 mg PO DAILY@0800 [facility] Last Admin: 12/11/20 08:20 Dose: 200 mg Documented by: Artificial Tears (Artificial Tears Op Soln 15 Ml Btl) 1 drop EYEAFF DAILY PRN PRN Reason: DRY EYE(S) Atorvastatin Calcium (Atorvastatin 40 Mg Tablet) 20 mg PO DAILY@1999 [facility] Last Admin: 12/11/20 19:36 Dose: 20 mg Documented by: Bisacodyl (Bisacodyl 10 Mg Supp) 10 mg [place] DAILY PRN PRN Reason: Constipation Dextrose (Dextrose 50% Syringe 50 Ml) 25 ml IVP ONCE PRN; Protocol PRN Reason: hypoglycemia protocol Dextrose (Dextrose 50% Syringe 50 Ml) 50 ml IVP PRN PRN; Protocol PRN Reason: hypoglycemia protocol Escitalopram Oxalate (Escitalopram 10 Mg Tablet) 30 mg PO DAILY@0800 [facility] Last Admin: 12/11/20 08:20 Dose: 30 mg Documented by: Glucagon (Glucagon 1 Mg/Ml Inj 1 Ml) 1 mg IM ONCE PRN; Protocol PRN Reason: Adult Acute Hypoglycemia Prot. Haloperidol (Haloperidol 5 Mg Tablet) 5 mg PO BID PRN PRN Reason: AGITATION Last Admin: 12/11/20 00:21 Dose: 5 mg Documented by: Hydroxyzine Pamoate (Hydroxyzine 25 Mg Capsule) 25 mg PO TID PRN PRN Reason: Itching Last Admin: 12/10/20 06:43 Dose: 25 mg Documented by: Dextrose (D5w) 500 mls @ 100 mls/hr IV ONCE PRN; Protocol PRN Reason: Adult Acute Hypoglycemia Prot Dobutamine HCl/Dextrose (Dobutamine Drip) 500 mg in 250 mls @ 8.308 mls/hr IV .Q24H [facility] Last Admin: 12/12/20 01:47 Dose: Not Given Documented by: Furosemide 100 mg/ Sodium (Chloride) 50 mls @ 0 mls/hr IV .Q0M [facility]; Protocol Last Admin: 12/11/20 14:29 Dose: 40 mg/hr, 20 mls/hr Documented by: Norepinephrine Bitartrate 4 mg (/ Dextrose) 254 mls @ 0 mls/hr IV .Q0M [facility]; Protocol Lidocaine HCl 5 ml/ Potassium (Chloride) 105 mls @ 25 mls/hr IV ONCE ONE Stop: 12/12/20 12:42 Insulin Aspart (Insulin Aspart 100 Unit/1 Ml) 0 unit SUBCUT TIDWM [facility]; Protocol Last Admin: 12/11/20 18:33 Dose: 2 unit Documented by: Insulin Detemir (Insulin Detemir 100 Units/1 Ml) 10 unit SUBCUT DAILY@0600 [facility] Last Admin: 12/12/20 05:46 Dose: 10 unit Documented by: Levothyroxine Sodium (Levothyroxine 25 Mcg Tablet) 25 mcg PO QAM [facility] Last Admin: 12/12/20 05:46 Dose: 25 mcg Documented by: Lorazepam (Lorazepam 1 Mg Tablet) 1 mg PO BID PRN PRN Reason: ANXIETY Last Admin: 12/10/20 21:12 Dose: 1 mg Documented by: Magnesium Hydroxide (Magnesium Hydroxide 30 Ml Udc) 30 ml PO DAILY PRN PRN Reason: Constipation Last Admin: 12/08/20 05:50 Dose: 30 ml Documented by: Metoprolol Tartrate (Metoprolol Tartrate 25 Mg Tablet) 25 mg PO BID@0800,1999 [facility] Last Admin: 12/11/20 19:36 Dose: 25 mg Documented by: Naloxone HCl (Naloxone 0.4 Mg/Ml Sdv) 0.1 mg IVP Q2M PRN PRN Reason: OPIATERV Non-Formulary Medication (Honey [Medihoney (Honey)]) 1 applic TOPICAL DAILY [facility] Last Admin: 12/11/20 08:47 Dose: Not Given Documented by: Nystatin (Nystatin Cream 30 Gm) 1 applic TOPICAL TID PRN PRN Reason: Rash Ondansetron HCl (Ondansetron 2 Mg/Ml Sdv 2 Ml) 4 mg IVP Q6H PRN PRN Reason: NAUSEA AND VOMITING Last Admin: 12/10/20 00:56 Dose: 4 mg Documented by: Pantoprazole Sodium (Pantoprazole Dr 40 Mg Tablet) 40 mg PO DAILY@0800 [facility] Last Admin: 12/11/20 08:21 Dose: 40 mg Documented by: Polyethylene Glycol (Polyethylene Glycol 3350 Pkt 17 Gm) 17 gm PO DAILY PRN PRN Reason: Constipation Potassium Chloride (Potassium Chloride Er 20 Meq Tablet) 20 meq PO DAILY [facility] Last Admin: 12/11/20 08:48 Dose: Not Given Documented by: Rivaroxaban (Rivaroxaban 10 Mg Tablet) 15 mg PO DAILY@0800 [facility] Last Admin: 12/11/20 08:21 Dose: 15 mg Documented by: Vitals/I&O/Wt Last Vital Signs Temp 97.9 F 12/12/20 09:00 Pulse 95 12/12/20 09:00 Resp 12 12/12/20 09:00 BP 108/70 12/12/20 09:00 Pulse Ox 97 12/12/20 09:00 12/11/20 12/12/20 12/12/20 22:59 06:59 14:59 Intake Total 480 / 530 649.417 / 649.417 Output Total 500 / 1050 1200 / 2250 200 / 200 Balance -20 / -520 -1200 / -1720 449.417 / 449.417 Weight last 48 hrs Weight 99.337 kg Weight 97.749 kg Physical Exam Const: COMMON NORMALS: no acute distress and patient oriented x3 OTHER: Generalized anasarca HENMT: COMMON NORMALS: normocephalic HEAD & SCALP: normocephalic Neck/C-Spine: COMMON NORMALS: no JVD Resp: COMMON NORMALS: normal respiratory effort, No retractions, No use of accessory muscles and clear to auscultation bilaterally AUSCULTATION: clear to auscultation bilaterally Cardio: COMMON NORMALS: no JVD, regular rate, regular rhythm, S1 normal heart sound present and S2 normal heart sound present RATE: regular rate RHYTHM: regular rhythm HEART SOUNDS: S1 normal heart sound present and S2 normal heart sound present GI: COMMON NORMALS: Normal to inspection, nondistended, normoactive bowel sounds present, Soft to palpation, non-tender, No hepatosplenomegaly present, no masses and no bruits PALPATION: Yes Soft to palpation and Yes No hepatosplenomegaly present Extremity: COMMON NORMALS: capillary refill normal, no clubbing, cyanosis or edema and no calf tenderness NARRATIVE EXTREMITY EXAM: 2+ pitting edema Neuro: COMMON NORMALS: patient oriented x3 Psych: COMMON NORMALS: mental status grossly normal Skin: NARRATIVE SKIN EXAM: Generalized anasarca Urinary Catheter Management^: Slater: Cath Placed During This Visit: no Reason for Continuing Indwelling Catheter: Accurate Measurement of Urinary Output in Critically Ill Patients Data : 12/12/20 03:19 12/12/20 03:19 A&P Assessment and plan (1) Anasarca: -Likely secondary to diastolic CHF, right-sided heart failure, pulmonary hypertension, cardiorenal syndrome -has gained roughly 10 pounds in the last few days, weight on last admission was 83 kg, weight on admission was 90.6 kg -Echocardiogram from October 30, 2020 shows: Small left ventricular cavity size. Normal left ventricular cavity size. Left ventricular ejection fraction is estimated at 55 %. Flattened septum in diastole consistent with right ventricle volume overload. 2-Severely increased right ventricular size. Severely decreased right ventricular systolic function. Moderate pulmonary hypertension, RVSP 65 mmHg. 3-Severely increased right atrial size. 4-Moderately increased left atrial size. 5-Severely thickened mitral valve. Severe mitral annular calcification. No mitral valve stenosis. Moderate to severe mitral valve regurgitation. 6-Severe aortic valve calcification. Moderate aortic valve stenosis, mean gradient, aortic valve is not well-visualized therefore cannot assess gradient on aortic valve area however appears to be moderately stenotic. 7-Structurally normal tricuspid valve without significant stenosis or regurgitation. Pulmonary artery systolic pressure is normal. 8-There is no pericardial effusion. 9-Right atrial pressure is around 20 mm of mercury. -Urine output has improved to over 2250cc continues to have diffuse anasarca, she is -4.9 L, serum sodium 131, potassium 3.4 Plan: -Fluid restrictions -Daily weights -Currently in ICU, receiving dobutamine drip, Lasix drip -Monitor creatinine and urine output closely -Cardiology on consult -Nephrology on consult -Receiving potassium phosphorus -On last admission patient had SANDY secondary to diuretics, hypoperfusion, has chronic hypotension, prerenal azotemia will start slow diuretic therapy and monitor her clinical response as she has CKD Plan for today, Lasix drip, dobutamine drip, monitor urine output, encourage to get up out of bed, encourage oral intake Status: Acute (2) Hyponatremia: Monitor sodium levels closely given diuresis Status: Acute (3) CKD (chronic kidney disease) stage 4, GFR 15-29 ml/min: Creatinine up to 1.7 today. Hypertension. Status: Chronic (4) Pulmonary hypertension: Status: Acute (5) Right heart failure: Status: Acute Qualifiers: Heart failure chronicity: acute on chronic Qualified Code(s): I50.813 - Acute on chronic right heart failure (6) Pleural effusion: Status: Acute (7) Atrial fibrillation: Continue amiodarone I have resumed Xarelto Status: Acute (8) Diabetes: Low-dose sliding scale Levemir 10 units in the morning Status: Chronic (9) Diastolic CHF: Status: Acute (10) Pacemaker: Status: Acute (11) H/O tricuspid valve annuloplasty: Status: Acute (12) Status post mitral valve annuloplasty: Status: Acute (13) Urinary tract infection: -Finish antibiotics -Follow urine cultures, blood cultures -CT scan of the abdomen pelvis does not show any obstructive uropathy or pyelonephritis Status: Acute (14) Chronic hypotension: -Has chronic hypotension on midodrine, -Does have a UTI -Continue midodrine for now Status: Acute (15) Cellulitis of left wrist: -X-ray of the wrist shows cellulitis, improving, finished antibiotic therapy Status: Acute (16) Thrombocytopenia: -Likely secondary to fatty liver disease, and liver cirrhosis, CT scan of the abdomen shows liver irregularity suggesting liver cirrhosis, -For now Xarelto continued, no signs of bleeding -Monitor for bleeding -SCDs for DVT prophylaxis Status: Acute (17) Suicidal ideation: -Has suicidal ideation, no active ideation, no plan -We will have Dr. Gilman see patient -Also has poor appetite, decreased willingness to participate in activities, does not want to do physical therapy, does not want to move -Unfortunately seems like Lizzie has just given up, she is not willing to participate in physical therapy, she is not willing to move, she denies been willing to change the channel on television, she just wants to be left alone, given her severe anasarca, and immobility, fluid will tend to reaccumulate in her legs and her lungs, the severe recurring phenomenon, recurring admission, high risk of morbidity and mortality, high risk of DVTs and PEs, UTIs, pneumonias, sepsis, septic shock -Patient's brother states that ultimately it is her decision to make about hospice, will have to reach out to psychiatry team to ensure that she can make decisions for herself given her suicidal ideation -Willing to get up out of bed today Status: Acute Additional A&P Information Has chronic hypotension, is on midodrine, likely related to right-sided heart failure Attestations Medical Necessity Statement*: Patient requires hospitalization, generalized anasarca, right-sided heart failure, cardiorenal syndrome, requiring dobutamine drip, Lasix drip Coding Level of Care Code Acute Cota for g Fwd Diagnoses Anasarca R60.1 Hyponatremia E87.1 CKD (chronic kidney disease) stage 4, GFR 15-29 ml/min N18.4 Pulmonary hypertension I27.20 Right heart failure I50.813 Heart failure chronicity: acute on chronic Pleural effusion J90 Atrial fibrillation I48.91 Diabetes E11.9 Diastolic CHF I50.30 Pacemaker Z95.0 H/O tricuspid valve annuloplasty Z98.890 Status post mitral valve annuloplasty Z98.890 Urinary tract infection N39.0 Chronic hypotension I95.89 Cellulitis of left wrist L03.114 Thrombocytopenia D69.6 Suicidal ideation R45.851
[2020-12-12] MEDS: hyDROXYzine 25 mg Capsule PO (10:55)
[2020-12-12 11:51] LABS: Glucose Point of Care 103 mg/dL (70-110)
--- NOTE | 2020-12-12 12:55 | PC.SOCIAL ---
IMM Update Pg.2 of IMM updated and patient provided copy.
[2020-12-12] MEDS: FUROsemide 100 MG in sodium chloride 0.9% 40 ML 10 MG IV ×2 (13:48→21:28)
--- NOTE | 2020-12-12 16:27 | PC.NURSE ---
ROunded with Dr walden in the AM. She does not want us to increase past the current lasix rate of 20 mg/hr. Approximately 1 liter of net fluid loss per day is desirable.
--- NOTE | 2020-12-12 16:29 | PC.NURSE ---
Bed bath provided and Moved patient to recliner using a kodak lift.
--- NOTE | 2020-12-12 16:45 | P.PN_ITS ---
Subjective Subjective: Interval history: -1.7 L. LOS-5.1 L; no events on tele She is a liitle more alert today Medications: Reviewed: Yes Medication Review Details: Current Medications Acetaminophen (Acetaminophen 325 Mg Tablet) 650 mg PO Q6H PRN PRN Reason: Mild/Mod Pain Or Temp >/= 101 Last Admin: 12/06/20 20:36 Dose: 650 mg Documented by: Amiodarone HCl (Amiodarone 200 Mg Tablet) 200 mg PO DAILY@0800 [facility] Last Admin: 12/12/20 08:49 Dose: 200 mg Documented by: Artificial Tears (Artificial Tears Op Soln 15 Ml Btl) 1 drop EYEAFF DAILY PRN PRN Reason: DRY EYE(S) Atorvastatin Calcium (Atorvastatin 40 Mg Tablet) 20 mg PO DAILY@1999 [facility] [place] Last Admin: 12/11/20 19:36 Dose: 20 mg Documented by: Bisacodyl (Bisacodyl 10 Mg Supp) 10 mg [place] DAILY PRN PRN Reason: Constipation Dextrose (Dextrose 50% Syringe 50 Ml) 25 ml IVP ONCE PRN; Protocol PRN Reason: hypoglycemia protocol Dextrose (Dextrose 50% Syringe 50 Ml) 50 ml IVP PRN PRN; Protocol PRN Reason: hypoglycemia protocol Escitalopram Oxalate (Escitalopram 10 Mg Tablet) 30 mg PO DAILY@0800 [facility] [place] Last Admin: 12/12/20 08:48 Dose: 30 mg Documented by: Glucagon (Glucagon 1 Mg/Ml Inj 1 Ml) 1 mg IM ONCE PRN; Protocol PRN Reason: Adult Acute Hypoglycemia Prot. Haloperidol (Haloperidol 5 Mg Tablet) 5 mg PO BID PRN PRN Reason: AGITATION Last Admin: 12/11/20 00:21 Dose: 5 mg Documented by: Hydroxyzine Pamoate (Hydroxyzine 25 Mg Capsule) 25 mg PO TID PRN PRN Reason: Itching Last Admin: 12/12/20 10:55 Dose: 25 mg Documented by: Dextrose (D5w) 500 mls @ 100 mls/hr IV ONCE PRN; Protocol PRN Reason: Adult Acute Hypoglycemia Prot Dobutamine HCl/Dextrose (Dobutamine Drip) 500 mg in 250 mls @ 8.308 mls/hr IV .Q24H [facility] [place] Last Admin: 12/12/20 10:14 Dose: 3 mcg/kg/min, 5 mls/hr Documented by: Furosemide 100 mg/ Sodium (Chloride) 50 mls @ 0 mls/hr IV .Q0M [facility] [place]; Protocol Last Admin: 12/12/20 13:48 Dose: 20 mg/hr, 10 mls/hr Documented by: Norepinephrine Bitartrate 4 mg (/ Dextrose) 254 mls @ 0 mls/hr IV .Q0M [facility] [place]; Protocol Insulin Aspart (Insulin Aspart 100 Unit/1 Ml) 0 unit SUBCUT TIDWM [facility] [place]; Protocol Last Admin: 12/12/20 12:14 Dose: Not Given Documented by: Insulin Detemir (Insulin Detemir 100 Units/1 Ml) 10 unit SUBCUT DAILY@0600 [facility] [place] Last Admin: 12/12/20 05:46 Dose: 10 unit Documented by: Levothyroxine Sodium (Levothyroxine 25 Mcg Tablet) 25 mcg PO QAM [facility] [place] Last Admin: 12/12/20 05:46 Dose: 25 mcg Documented by: Lorazepam (Lorazepam 1 Mg Tablet) 1 mg PO BID PRN PRN Reason: ANXIETY Last Admin: 12/10/20 21:12 Dose: 1 mg Documented by: Magnesium Hydroxide (Magnesium Hydroxide 30 Ml Udc) 30 ml PO DAILY PRN PRN Reason: Constipation Last Admin: 12/08/20 05:50 Dose: 30 ml Documented by: Metoprolol Tartrate (Metoprolol Tartrate 25 Mg Tablet) 25 mg PO BID@08,1999 [facility] [place] Last Admin: 12/12/20 08:49 Dose: 25 mg Documented by: Naloxone HCl (Naloxone 0.4 Mg/Ml Sdv) 0.1 mg IVP Q2M PRN PRN Reason: OPIATERV Non-Formulary Medication (Honey [Medihoney (Honey)]) 1 applic TOPICAL DAILY [facility] [place] Last Admin: 12/12/20 08:46 Dose: Not Given Documented by: Nystatin (Nystatin Cream 30 Gm) 1 applic TOPICAL TID PRN PRN Reason: Rash Ondansetron HCl (Ondansetron 2 Mg/Ml Sdv 2 Ml) 4 mg IVP Q6H PRN PRN Reason: NAUSEA AND VOMITING Last Admin: 12/10/20 00:56 Dose: 4 mg Documented by: Pantoprazole Sodium (Pantoprazole Dr 40 Mg Tablet) 40 mg PO DAILY@0800 [facility] [place] Last Admin: 12/12/20 08:49 Dose: 40 mg Documented by: Polyethylene Glycol (Polyethylene Glycol 3350 Pkt 17 Gm) 17 gm PO DAILY PRN PRN Reason: Constipation Potassium Chloride (Potassium Chloride Er 20 Meq Tablet) 20 meq PO DAILY [facility] [place] Last Admin: 12/12/20 08:52 Dose: 20 meq Documented by: Rivaroxaban (Rivaroxaban 10 Mg Tablet) 15 mg PO DAILY@0800 [facility] [place] Last Admin: 12/12/20 08:50 Dose: 15 mg Documented by: Vitals/I&O/Wt Last Vital Signs Temp 97.4 F L 12/12/20 16:00 Pulse 100 12/12/20 16:00 Resp 26 H 12/12/20 16:00 BP 164/71 12/12/20 16:00 Pulse Ox 99 12/12/20 16:00 12/12/20 12/12/20 12/12/20 06:59 14:59 22:59 Intake Total 939.417 / 939.417 Output Total 1200 / 2250 200 / 200 450 / 650 Balance -1200 / -1720 739.417 / 739.417 -450 / 289.417 Weight last 48 hrs Weight 219 lb Weight 215 lb 8 oz Physical Exam Narrative: EXAM NARRATIVE: Const: COMMON NORMALS: no acute distress, patient oriented x3 and alert GENERAL APPEARANCE: cooperative, comfortable and well Critical access hospital COMMON NORMALS: normocephalic, atraumatic, hearing grossly normal bilaterally and external ears normal HEAD & SCALP: normocephalic and atraumatic FACE & SINUS: normal facial exam and no edema EXTERNAL EAR: Yes external ears normal Eye COMMON NORMALS: Equal, round and reactive pupils present, EOMs intact bilaterally, conjunctivae normal and no scleral icterus GENERAL EYE: appearance normal, both eyes and all related structures ALIGNMENT: Yes alignment normal EYELID: eyelids normal CONJUNCTIVA: Yes conjunctivae normal SCLERA: sclerae normal PUPIL: Yes Equal, round and reactive pupils present Neck/C-Spine COMMON NORMALS: supple and Thyroid normal GENERAL: Yes normal visual inspection, Yes trachea midline and No Mass present (neck) THYROID: Thyroid normal CAROTIDS: Yes normal carotid upstroke CERVICAL SPINE: Yes cervical ROM normal Chest COMMONS NORMALS: normal inspection of the chest and normal palpation of entire chest wall CHEST: Yes Symmetrical chest wall rise, No mass, No tenderness, + Surgical scars present (Chest) of sternotomy and No rash, left upper chest permanent pacemaker in place Resp COMMON NORMALS: clear to auscultation bilaterally EFFORT & INSPECTION: Yes able to speak in complete sentences, No respiratory distress and No labored AUSCULTATION: clear to auscultation bilaterally, decreased breath sounds at bases, no wheezes and vesicular breath sounds Cardio COMMON NORMALS: S1 and S2 irregular of variable intensity JUGULAR VENOUS DISTENTION: JVD PALPATION: normal PMI RHYTHM: abnormal rhythm irregularly irregular HEART SOUNDS: S1 normal heart sound present, S2 normal heart sound present, no gallops and no murmurs BRUITS: no abdominal aortic bruits, no carotid bruits and no femoral bruits PERIPHERAL PULSES: Peripheral pulses 2+ throughout, radial pulses present, posterior tibial pulses present and dorsalis pedis present GI COMMON NORMALS: Soft to palpation AUSCULTATION: Yes normoactive bowel sounds PALPATION: Yes Soft to palpation, No Tenderness to palpation present (GI), No Guarding due to palpation present (GI), No Rigid due to palpation, Extremity GENERAL: No calf tenderness, No clubbing, Yes edema (4+ edema extending above knees), weeping legs. Left shoulder pain Neuro COMMON NORMALS: patient oriented x3 SENSORIUM/ORIENTATION: Yes drowsy but arousable Psych APPEARANCE: Yes well kempt MOOD & AFFECT: Yes depressed mood Urinary Catheter Management^: Slater: Cath Placed During This Visit: no Reason for Continuing Indwelling Catheter: Accurate Measurement of Urinary Output in Critically Ill Patients Data : 12/12/20 03:19 12/12/20 03:19 A&P Assessment and plan (1) Right heart failure: Patient has chronic RV failure with elevated JVD and peripheral edema. -She has markedly dilated RV with severely decreased RV function and severe pHTN. Septal flattening in systole and diastole consistent with RV volume and pressure overload. [place] forming RV and RV: LV >1. -Her LV filling is volume dependant and both increase or decrease in volume can impair LV filling and CO.(Ventricular interdependance) -continue Dobutamine at 5 mcg; she may need levophed along with that. -currently on lasix 20 mg/hr. Patient has a poor overall prognosis. I spoke to family about the same. Status: Acute Qualifiers: Heart failure chronicity: acute on chronic Qualified Code(s): I50.813 - Acute on chronic right heart failure (2) Acute kidney injury superimposed on chronic kidney disease: Creatinine from 2.1-2--1.7 today and BUN has decreased from 46-42--44. -Nephrology on board. Status: Acute (3) Atrial fibrillation: Permanent A. fib on metoprolol, Xarelto held since admission and amiodarone. -A. fib ablation offered to patient in past and was declined. Status: Acute (4) Pulmonary hypertension: Severe pHTN WHO group 2 -unfortunately PH directed therapy has not been very beneficial in this group. Status: Acute (5) CKD (chronic kidney disease) stage 4, GFR 15-29 ml/min: Status: Chronic (6) H/O tricuspid valve annuloplasty: Status: Acute (7) Status post mitral valve annuloplasty: Status: Acute (8) Diabetes: Status: Chronic Additional A&P Information PPM in situ Hyponatremia: portends poor prognosis Hypokalemia Hypophosphatemia Severe Depression Anemia of ID and CKD Thrombocytopenia Generalized weakness and Deconditioning Depression Thank you for allowing me to participate in patient's care. Please feel free to call with questions or concerns. Attestations Medical Necessity Statement*: needs hospital stay for CHF and SANDY on CKD Time Spent in Patient Care: Greater than 35 minutes (>than 50% of time spent in counselling and/or direct pt care on unit) . Critical Care Time: Critical Care Time (min): 40 Coding Level of Care Code Acute Telephone Sales Representative for [facility]eden Kuhn Diagnoses Right heart failure I50.813 Heart failure chronicity: acute on chronic Acute kidney injury superimposed on chronic kidney disease N17.9; N18.9 Atrial fibrillation I48.91 Pulmonary hypertension I27.20 CKD (chronic kidney disease) stage 4, GFR 15-29 ml/min N18.4 H/O tricuspid valve annuloplasty Z98.890 Status post mitral valve annuloplasty Z98.890 Diabetes E11.9
[2020-12-12 17:28] LABS: Glucose Point of Care 106 mg/dL (70-110)
[2020-12-12] MEDS: atorvastatin 40 mg Tablet 20 MG PO (19:57)
[2020-12-12] MEDS: LORazepam 1 mg Tablet PO (19:57)
--- NOTE | 2020-12-12 20:12 | PC.NURSE ---
AO x3, continues to refuse to do basic care for self but will with encouragement, significant 3+ pitting edema BLE, 2+ non pitting to BUE, supine 45 degrees, call light within reach
[2020-12-13] VITALS (51 sets, daily range): BP systolic 91–129; BP diastolic 56–100; PULSE 73–109; RESP 15–31; TEMP 36.6–36.8; O2SAT 89–99
[2020-12-13 04:41] LABS: Eosinophils % 0.3 %; Hematocrit 35.2 % (37.0-47.0); Hemoglobin 10.7 g/dL (11.5-15.3); Lymphocytes # 0.8 10^3/uL (0.8-4.8); Mean Corpuscular HGB Conc 30.4 g/dL (30.0-36.0); Mean Corpuscular Hemoglobin 25.5 pg (28.0-34.0); Mean Platelet Volume 11.4 fL (7.4-10.4); Monocytes # 0.5 10^3/uL (0.2-0.9); Monocytes % 11.5 %; Neutrophils # 2.69 10^3/uL (1.8-7.7); Neutrophils % 67.4 %; Nucleated Red Blood Cells % 0 %; Platelet Count 91 10^3/cmm (130-400); Red Blood Count 4.19 10^6/uL (4.1-5.3)
[2020-12-13 05:19] LABS: Alanine Aminotransferase < 5 U/L (0-33); Albumin Level 2.7 g/dL (3.5-5.2); Alkaline Phosphatase 133 IU/L (35-105); Anion Gap 11.2 (5-19); Aspartate Amino Transferase 13 U/L (0-32); Blood Urea Nitrogen 40 mg/dL (8-23); Calcium 8.2 mg/dL (8.5-10.5); Carbon Dioxide 32 mmol/L (22-29); Chloride 93 mmol/L (98-107); Globulin 2.6 g/dL (1.3-4.6); Glomerular Filtration Rate 32.3 mL/min (90-130); Glucose 93 mg/dL (65-115); INR 1.78 (0.8-1.2); Magnesium 1.9 mg/dL (1.7-2.3); NT Pro B Type Natriuretic Pept 4328 pg/mL (0-125); Osmolality Calculated 285 mOsm/kg (285-295); Phosphorus 3.2 mg/dL (2.5-4.5); Potassium 3.2 mmol/L (3.5-5.1); Sodium 133 mmol/L (136-145); Total Bilirubin 0.6 mg/dL (0.15-1.2); Total Protein 5.3 g/dL (6.6-8.7)
[2020-12-13] MEDS: levothyroxine 25 mcg Tablet PO (05:19)
[2020-12-13 07:44] LABS: Glucose Point of Care 92 mg/dL (70-110)
--- NOTE | 2020-12-13 07:44 | PM.PN ---
Subjective Subjective: Interval history: less sob, comfortable on lasix and dobutamine drips. + eating. less swollen. + weak Medications: Reviewed: Yes Medication Review Details: Current Medications Acetaminophen (Acetaminophen 325 Mg Tablet) 650 mg PO Q6H PRN PRN Reason: Mild/Mod Pain Or Temp >/= 101 Last Admin: 12/06/20 20:36 Dose: 650 mg Documented by: Amiodarone HCl (Amiodarone 200 Mg Tablet) 200 mg PO DAILY@0800 [facility] Last Admin: 12/12/20 08:49 Dose: 200 mg Documented by: Artificial Tears (Artificial Tears Op Soln 15 Ml Btl) 1 drop EYEAFF DAILY PRN PRN Reason: DRY EYE(S) Atorvastatin Calcium (Atorvastatin 40 Mg Tablet) 20 mg PO DAILY@1999 [facility] Last Admin: 12/12/20 19:57 Dose: 20 mg Documented by: Bisacodyl (Bisacodyl 10 Mg Supp) 10 mg [place] DAILY PRN PRN Reason: Constipation Dextrose (Dextrose 50% Syringe 50 Ml) 25 ml IVP ONCE PRN; Protocol PRN Reason: hypoglycemia protocol Dextrose (Dextrose 50% Syringe 50 Ml) 50 ml IVP PRN PRN; Protocol PRN Reason: hypoglycemia protocol Escitalopram Oxalate (Escitalopram 10 Mg Tablet) 30 mg PO DAILY@0800 [facility] Last Admin: 12/12/20 08:48 Dose: 30 mg Documented by: Glucagon (Glucagon 1 Mg/Ml Inj 1 Ml) 1 mg IM ONCE PRN; Protocol PRN Reason: Adult Acute Hypoglycemia Prot. Haloperidol (Haloperidol 5 Mg Tablet) 5 mg PO BID PRN PRN Reason: AGITATION Last Admin: 12/11/20 00:21 Dose: 5 mg Documented by: Hydroxyzine Pamoate (Hydroxyzine 25 Mg Capsule) 25 mg PO TID PRN PRN Reason: Itching Last Admin: 12/12/20 10:55 Dose: 25 mg Documented by: Dextrose (D5w) 500 mls @ 100 mls/hr IV ONCE PRN; Protocol PRN Reason: Adult Acute Hypoglycemia Prot Dobutamine HCl/Dextrose (Dobutamine Drip) 500 mg in 250 mls @ 8.308 mls/hr IV .Q24H [facility] Last Admin: 12/12/20 10:14 Dose: 3 mcg/kg/min, 5 mls/hr Documented by: Furosemide 100 mg/ Sodium (Chloride) 50 mls @ 0 mls/hr IV .Q0M [facility]; Protocol Last Admin: 12/12/20 21:28 Dose: 20 mg/hr, 10 mls/hr Documented by: Norepinephrine Bitartrate 4 mg (/ Dextrose) 254 mls @ 0 mls/hr IV .Q0M [facility]; Protocol Potassium Chloride (K-Yousif) 100 mls @ 25 mls/hr IV ONCE ONE Stop: 12/13/20 11:59 Insulin Aspart (Insulin Aspart 100 Unit/1 Ml) 0 unit SUBCUT TIDWM [facility]; Protocol Last Admin: 12/12/20 17:27 Dose: Not Given Documented by: Insulin Detemir (Insulin Detemir 100 Units/1 Ml) 10 unit SUBCUT DAILY@0600 [facility] Last Admin: 12/13/20 05:17 Dose: 10 unit Documented by: Levothyroxine Sodium (Levothyroxine 25 Mcg Tablet) 25 mcg PO QAM [facility] Last Admin: 12/13/20 05:19 Dose: 25 mcg Documented by: Lorazepam (Lorazepam 1 Mg Tablet) 1 mg PO BID PRN PRN Reason: ANXIETY Last Admin: 12/12/20 19:57 Dose: 1 mg Documented by: Magnesium Hydroxide (Magnesium Hydroxide 30 Ml Udc) 30 ml PO DAILY PRN PRN Reason: Constipation Last Admin: 12/08/20 05:50 Dose: 30 ml Documented by: Metolazone (Metolazone 5 Mg Tablet) 5 mg PO DAILY [facility] Metoprolol Tartrate (Metoprolol Tartrate 25 Mg Tablet) 25 mg PO BID@0800,2000 [facility] Last Admin: 12/12/20 19:57 Dose: 25 mg Documented by: Naloxone HCl (Naloxone 0.4 Mg/Ml Sdv) 0.1 mg IVP Q2M PRN PRN Reason: OPIATERV Non-Formulary Medication (Honey [Medihoney (Honey)]) 1 applic TOPICAL DAILY [facility] Last Admin: 12/12/20 08:46 Dose: Not Given Documented by: Nystatin (Nystatin Cream 30 Gm) 1 applic TOPICAL TID PRN PRN Reason: Rash Ondansetron HCl (Ondansetron 2 Mg/Ml Sdv 2 Ml) 4 mg IVP Q6H PRN PRN Reason: NAUSEA AND VOMITING Last Admin: 12/10/20 00:56 Dose: 4 mg Documented by: Pantoprazole Sodium (Pantoprazole Dr 40 Mg Tablet) 40 mg PO DAILY@0800 [facility] Last Admin: 12/12/20 08:49 Dose: 40 mg Documented by: Polyethylene Glycol (Polyethylene Glycol 3350 Pkt 17 Gm) 17 gm PO DAILY PRN PRN Reason: Constipation Potassium Chloride (Potassium Chloride Er 20 Meq Tablet) 40 meq PO BID [facility] Rivaroxaban (Rivaroxaban 10 Mg Tablet) 15 mg PO DAILY@0800 [facility] Last Admin: 12/12/20 08:50 Dose: 15 mg Documented by: Vitals/I&O/Wt Last Vital Signs Temp 97.4 F L 12/12/20 16:00 Pulse 87 12/13/20 04:00 Resp 22 H 12/13/20 04:00 BP 119/85 12/13/20 04:00 Pulse Ox 98 12/13/20 04:00 12/12/20 12/13/20 12/13/20 22:59 06:59 14:59 Intake Total 50 / 989.417 Output Total 450 / 650 1300 / 1950 Balance -400 / 339.417 -1300 / -960.583 Weight last 48 hrs Weight 98.43 kg Weight 99.337 kg Physical Exam Narrative: EXAM NARRATIVE: off pressers, on dobutamine and lasix drips. good uop and diuresis comfortable in bed, NC 02 -2l ansd pulse ox 98% heent- nc/at, eomi neck supple lungs dull bases and crackles b/l heart reg, +HSM abd soft, nt, nd, +BS ext b/l 2+ edema neuro- a,a, o x 2+ Urinary Catheter Management^: Slater: Cath Placed During This Visit: no Reason for Continuing Indwelling Catheter: Accurate Measurement of Urinary Output in Critically Ill Patients Data : 12/13/20 04:17 12/13/20 04:17 A&P Additional A&P Information 65 yr old female RT heart failure, MV and aortic valve disease, dialstolic dysfunction 1. AKI_ CRS- maximize CHF, valvular heart disease treatment -cr slightly better w/ diuresis - pt has CKD stage 3-4 from CRS -monitor uop and chem 7 2. hyponatremia - CHF and CRS -fluid restrict -na improving w/ chf management 3. Pulm htn/ valvular heart disease -per cardiology- poor prognosis -monitor k and mag on diuretics -bnp remains elevated at [id number] 4. a fib -on amiodarone -replace k 5. dM 6. uti -citrobacter youngae 11-29-20-per hospitalist 7. mild anemia -hgb stable seen w/ rn who examined the pt - telehealth visit Attestations Medical Necessity Statement*: SANDY improved, severe CM per cardiology Time Spent in Patient Care: 16 - 35 minutes Coding Level of Care Code Acute Capacity Planning Manager for Braeden Kuhn
[2020-12-13] MEDS: amiodarone 200 mg Tablet PO (09:06)
[2020-12-13] MEDS: rivaroxaban 10 mg Tablet 15 MG PO (09:07)
[2020-12-13] MEDS: metOLazone 5 MG Tablet PO (09:07)
[2020-12-13] MEDS: escitalopram 10 mg Tablet 30 MG PO (09:07)
[2020-12-13] MEDS: pantoprazole DR 40 mg Tablet PO (09:07)
[2020-12-13] MEDS: lidocaine 1% INJ 20 mL 5 ML IV (09:14)
[2020-12-13] MEDS: metoprolol tartrate 25 mg Tablet PO ×2 (09:14→20:28)
[2020-12-13] MEDS: potassium chloride premix 100 ML 25 MEQ IV (09:15)
--- NOTE | 2020-12-13 11:20 | PM.PN ---
Subjective Subjective: Interval history: This morning patient was examined, she is quite withdrawn, she tells me that she did not get any sleep last night, the nurses did get her up into a chair, but she tells me that she is very tired after, she did eat more yesterday, she denies any short of breath, denies chest pain I again had a discussion with Lizzie about her prognosis, her severe right-sided heart failure, pulmonary pretension, recurrent anasarca, I had a discussion about hospice, she understands what hospice is, but tells me that she is still thinking on it, but has not reached a decision yet Medications: Reviewed: Yes Medication Review Details: Current Medications Acetaminophen (Acetaminophen 325 Mg Tablet) 650 mg PO Q6H PRN PRN Reason: Mild/Mod Pain Or Temp >/= 101 Last Admin: 12/06/20 20:36 Dose: 650 mg Documented by: Amiodarone HCl (Amiodarone 200 Mg Tablet) 200 mg PO DAILY@0800 [facility] Last Admin: 12/12/20 08:49 Dose: 200 mg Documented by: Artificial Tears (Artificial Tears Op Soln 15 Ml Btl) 1 drop EYEAFF DAILY PRN PRN Reason: DRY EYE(S) Atorvastatin Calcium (Atorvastatin 40 Mg Tablet) 20 mg PO DAILY@1999 [facility] Last Admin: 12/12/20 19:57 Dose: 20 mg Documented by: Bisacodyl (Bisacodyl 10 Mg Supp) 10 mg SD DAILY PRN PRN Reason: Constipation Dextrose (Dextrose 50% Syringe 50 Ml) 25 ml IVP ONCE PRN; Protocol PRN Reason: hypoglycemia protocol Dextrose (Dextrose 50% Syringe 50 Ml) 50 ml IVP PRN PRN; Protocol PRN Reason: hypoglycemia protocol Escitalopram Oxalate (Escitalopram 10 Mg Tablet) 30 mg PO DAILY@0800 [facility] Last Admin: 12/12/20 08:48 Dose: 30 mg Documented by: Glucagon (Glucagon 1 Mg/Ml Inj 1 Ml) 1 mg IM ONCE PRN; Protocol PRN Reason: Adult Acute Hypoglycemia Prot. Haloperidol (Haloperidol 5 Mg Tablet) 5 mg PO BID PRN PRN Reason: AGITATION Last Admin: 12/11/20 00:21 Dose: 5 mg Documented by: Hydroxyzine Pamoate (Hydroxyzine 25 Mg Capsule) 25 mg PO TID PRN PRN Reason: Itching Last Admin: 12/12/20 10:55 Dose: 25 mg Documented by: Dextrose (D5w) 500 mls @ 100 mls/hr IV ONCE PRN; Protocol PRN Reason: Adult Acute Hypoglycemia Prot Dobutamine HCl/Dextrose (Dobutamine Drip) 500 mg in 250 mls @ 8.308 mls/hr IV .Q24H [facility] Last Admin: 12/12/20 10:14 Dose: 3 mcg/kg/min, 5 mls/hr Documented by: Furosemide 100 mg/ Sodium (Chloride) 50 mls @ 0 mls/hr IV .Q0M [facility]; Protocol Last Admin: 12/12/20 21:28 Dose: 20 mg/hr, 10 mls/hr Documented by: Norepinephrine Bitartrate 4 mg (/ Dextrose) 254 mls @ 0 mls/hr IV .Q0M [facility]; Protocol Potassium Chloride (K-Yousif) 100 mls @ 25 mls/hr IV ONCE ONE Stop: 12/13/20 11:59 Insulin Aspart (Insulin Aspart 100 Unit/1 Ml) 0 unit SUBCUT TIDWM [facility]; Protocol Last Admin: 12/12/20 17:27 Dose: Not Given Documented by: Insulin Detemir (Insulin Detemir 100 Units/1 Ml) 10 unit SUBCUT DAILY@0600 [facility] Last Admin: 12/13/20 05:17 Dose: 10 unit Documented by: Levothyroxine Sodium (Levothyroxine 25 Mcg Tablet) 25 mcg PO QAM [facility] Last Admin: 12/13/20 05:19 Dose: 25 mcg Documented by: Lorazepam (Lorazepam 1 Mg Tablet) 1 mg PO BID PRN PRN Reason: ANXIETY Last Admin: 12/12/20 19:57 Dose: 1 mg Documented by: Magnesium Hydroxide (Magnesium Hydroxide 30 Ml Udc) 30 ml PO DAILY PRN PRN Reason: Constipation Last Admin: 12/08/20 05:50 Dose: 30 ml Documented by: Metolazone (Metolazone 5 Mg Tablet) 5 mg PO DAILY [facility] Metoprolol Tartrate (Metoprolol Tartrate 25 Mg Tablet) 25 mg PO BID@0800,2000 [facility] Last Admin: 12/12/20 19:57 Dose: 25 mg Documented by: Naloxone HCl (Naloxone 0.4 Mg/Ml Sdv) 0.1 mg IVP Q2M PRN PRN Reason: OPIATERV Non-Formulary Medication (Honey [Medihoney (Honey)]) 1 applic TOPICAL DAILY [facility] Last Admin: 12/12/20 08:46 Dose: Not Given Documented by: Nystatin (Nystatin Cream 30 Gm) 1 applic TOPICAL TID PRN PRN Reason: Rash Ondansetron HCl (Ondansetron 2 Mg/Ml Sdv 2 Ml) 4 mg IVP Q6H PRN PRN Reason: NAUSEA AND VOMITING Last Admin: 12/10/20 00:56 Dose: 4 mg Documented by: Pantoprazole Sodium (Pantoprazole Dr 40 Mg Tablet) 40 mg PO DAILY@0800 [facility] Last Admin: 12/12/20 08:49 Dose: 40 mg Documented by: Polyethylene Glycol (Polyethylene Glycol 3350 Pkt 17 Gm) 17 gm PO DAILY PRN PRN Reason: Constipation Potassium Chloride (Potassium Chloride Er 20 Meq Tablet) 40 meq PO BID [facility] Rivaroxaban (Rivaroxaban 10 Mg Tablet) 15 mg PO DAILY@0800 [facility] Last Admin: 12/12/20 08:50 Dose: 15 mg Documented by: Vitals/I&O/Wt Last Vital Signs Temp 97.4 F L 12/12/20 16:00 Pulse 109 H 12/13/20 09:06 Resp 16 12/13/20 08:30 BP 113/79 12/13/20 08:30 Pulse Ox 96 12/13/20 09:06 12/12/20 12/13/20 12/13/20 22:59 06:59 14:59 Intake Total 50 / 989.417 Output Total 450 / 650 1300 / 1950 Balance -400 / 339.417 -1300 / -960.583 Weight last 48 hrs Weight 98.43 kg Weight 99.337 kg Physical Exam Narrative: EXAM NARRATIVE: Generalized anasarca Const: COMMON NORMALS: no acute distress and patient oriented x3 HENMT: COMMON NORMALS: normocephalic HEAD & SCALP: normocephalic Neck/C-Spine: COMMON NORMALS: no JVD Resp: COMMON NORMALS: normal respiratory effort, No retractions, No use of accessory muscles and clear to auscultation bilaterally AUSCULTATION: clear to auscultation bilaterally Cardio: COMMON NORMALS: no JVD, regular rate, regular rhythm, S1 normal heart sound present and S2 normal heart sound present RATE: regular rate RHYTHM: regular rhythm HEART SOUNDS: S1 normal heart sound present and S2 normal heart sound present GI: COMMON NORMALS: Normal to inspection, nondistended, normoactive bowel sounds present, Soft to palpation, non-tender, No hepatosplenomegaly present, no masses and no bruits PALPATION: Yes Soft to palpation and Yes No hepatosplenomegaly present Extremity: COMMON NORMALS: capillary refill normal, no clubbing, cyanosis or edema and no calf tenderness NARRATIVE EXTREMITY EXAM: 2+ pitting edema Neuro: COMMON NORMALS: patient oriented x3 Psych: COMMON NORMALS: mental status grossly normal Urinary Catheter Management^: Slater: Cath Placed During This Visit: no Reason for Continuing Indwelling Catheter: Accurate Measurement of Urinary Output in Critically Ill Patients Data : 12/13/20 04:17 12/13/20 04:17 A&P Assessment and plan (1) Anasarca: -Likely secondary to diastolic CHF, right-sided heart failure, pulmonary hypertension, cardiorenal syndrome -has gained roughly 10 pounds in the last few days, weight on last admission was 83 kg, weight on admission was 90.6 kg -Echocardiogram from October 30, 2020 shows: Small left ventricular cavity size. Normal left ventricular cavity size. Left ventricular ejection fraction is estimated at 55 %. Flattened septum in diastole consistent with right ventricle volume overload. 2-Severely increased right ventricular size. Severely decreased right ventricular systolic function. Moderate pulmonary hypertension, RVSP 65 mmHg. 3-Severely increased right atrial size. 4-Moderately increased left atrial size. 5-Severely thickened mitral valve. Severe mitral annular calcification. No mitral valve stenosis. Moderate to severe mitral valve regurgitation. 6-Severe aortic valve calcification. Moderate aortic valve stenosis, mean gradient, aortic valve is not well-visualized therefore cannot assess gradient on aortic valve area however appears to be moderately stenotic. 7-Structurally normal tricuspid valve without significant stenosis or regurgitation. Pulmonary artery systolic pressure is normal. 8-There is no pericardial effusion. 9-Right atrial pressure is around 20 mm of mercury. -Urine output has improved to over 2000cc continues to have diffuse anasarca, she is -6.3 L, serum sodium 131, potassium 3.2 Plan: -Fluid restrictions -Daily weights -Currently in ICU, receiving dobutamine drip, Lasix drip -Monitor creatinine and urine output closely -Cardiology on consult -Nephrology on consult -Receiving potassium supplementation today -Poor prognosis -Patient not ready to decide on hospice -On last admission patient had SANDY secondary to diuretics, hypoperfusion, has chronic hypotension, prerenal azotemia will start slow diuretic therapy and monitor her clinical response as she has CKD Plan for today, Lasix drip, dobutamine drip, monitor urine output, encourage to get up out of bed, encourage oral intake Status: Acute (2) Hyponatremia: Monitor sodium levels closely given diuresis Status: Acute (3) CKD (chronic kidney disease) stage 4, GFR 15-29 ml/min: Creatinine up to 1.7 today. Hypertension. Status: Chronic (4) Pulmonary hypertension: Status: Acute (5) Right heart failure: Status: Acute Qualifiers: Heart failure chronicity: acute on chronic Qualified Code(s): I50.813 - Acute on chronic right heart failure (6) Pleural effusion: Status: Acute (7) Atrial fibrillation: Continue amiodarone I have resumed Xarelto Status: Acute (8) Diabetes: Low-dose sliding scale Levemir 10 units in the morning Status: Chronic (9) Diastolic CHF: Status: Acute (10) Pacemaker: Status: Acute (11) H/O tricuspid valve annuloplasty: Status: Acute (12) Status post mitral valve annuloplasty: Status: Acute (13) Urinary tract infection: -Finish antibiotics -Follow urine cultures, blood cultures -CT scan of the abdomen pelvis does not show any obstructive uropathy or pyelonephritis Status: Acute (14) Chronic hypotension: -Has chronic hypotension on midodrine, -Does have a UTI -Continue midodrine for now Status: Acute (15) Cellulitis of left wrist: -X-ray of the wrist shows cellulitis, improving, finished antibiotic therapy Status: Acute (16) Thrombocytopenia: -Likely secondary to fatty liver disease, and liver cirrhosis, CT scan of the abdomen shows liver irregularity suggesting liver cirrhosis, -For now Xarelto continued, no signs of bleeding -Monitor for bleeding -SCDs for DVT prophylaxis Status: Acute (17) Suicidal ideation: -Has suicidal ideation, no active ideation, no plan -We will have Dr. Gilman see patient -Also has poor appetite, decreased willingness to participate in activities, does not want to do physical therapy, does not want to move -Unfortunately seems like Lizzie has just given up, she is not willing to participate in physical therapy, she is not willing to move, she denies been willing to change the channel on television, she just wants to be left alone, given her severe anasarca, and immobility, fluid will tend to reaccumulate in her legs and her lungs, the severe recurring phenomenon, recurring admission, high risk of morbidity and mortality, high risk of DVTs and PEs, UTIs, pneumonias, sepsis, septic shock -Patient's brother states that ultimately it is her decision to make about hospice, will have to reach out to psychiatry team to ensure that she can make decisions for herself given her suicidal ideation -Patient is not ready to make a decision hospice Status: Acute Additional A&P Information Has chronic hypotension, is on midodrine, likely related to right-sided heart failure Attestations Medical Necessity Statement*: Patient requires hospitalization for diffuse anasarca, bilateral pitting edema, secondary to diastolic CHF, right-sided heart failure, severe pulmonary hypertension Coding Level of Care Code 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
[2020-12-13 11:27] LABS: Glucose Point of Care 131 mg/dL (70-110)
[2020-12-13] MEDS: FUROsemide 100 MG in sodium chloride 0.9% 40 ML 10 MG IV ×2 (12:32→18:37)
[2020-12-13] MEDS: potassium chloride ER 20 mEq Tablet 40 MEQ PO ×2 (13:00→17:00)
[2020-12-13] MEDS: LORazepam 1 mg Tablet PO (16:06)
--- NOTE | 2020-12-13 16:13 | PC.NURSE ---
Update Patient is resting in bed this shift. Patient is complaining of bilateral lower leg pain. PRN medication given. Bilateral lower legs are weeping.
[2020-12-13 17:00] LABS: Glucose Point of Care 159 mg/dL (70-110)
--- NOTE | 2020-12-13 18:12 | PM.PN ---
Subjective Subjective: Interval history: Patient remains the same. No new complaints. Urine output 1950, -910 mL. ml. Length of stay -6.3 L. Medications: Reviewed: Yes Medication Review Details: Current Medications Acetaminophen (Acetaminophen 325 Mg Tablet) 650 mg PO Q6H PRN PRN Reason: Mild/Mod Pain Or Temp >/= 101 Last Admin: 12/06/20 20:36 Dose: 650 mg Documented by: Amiodarone HCl (Amiodarone 200 Mg Tablet) 200 mg PO DAILY@0800 [facility] Last Admin: 12/13/20 09:06 Dose: 200 mg Documented by: Artificial Tears (Artificial Tears Op Soln 15 Ml Btl) 1 drop EYEAFF DAILY PRN PRN Reason: DRY EYE(S) Atorvastatin Calcium (Atorvastatin 40 Mg Tablet) 20 mg PO DAILY@1999 [facility] Last Admin: 12/12/20 19:57 Dose: 20 mg Documented by: Bisacodyl (Bisacodyl 10 Mg Supp) 10 mg CA DAILY PRN PRN Reason: Constipation Dextrose (Dextrose 50% Syringe 50 Ml) 25 ml IVP ONCE PRN; Protocol PRN Reason: hypoglycemia protocol Dextrose (Dextrose 50% Syringe 50 Ml) 50 ml IVP PRN PRN; Protocol PRN Reason: hypoglycemia protocol Escitalopram Oxalate (Escitalopram 10 Mg Tablet) 30 mg PO DAILY@0800 [facility] Last Admin: 12/13/20 09:07 Dose: 30 mg Documented by: Glucagon (Glucagon 1 Mg/Ml Inj 1 Ml) 1 mg IM ONCE PRN; Protocol PRN Reason: Adult Acute Hypoglycemia Prot. Haloperidol (Haloperidol 5 Mg Tablet) 5 mg PO BID PRN PRN Reason: AGITATION Last Admin: 12/11/20 00:21 Dose: 5 mg Documented by: Hydroxyzine Pamoate (Hydroxyzine 25 Mg Capsule) 25 mg PO TID PRN PRN Reason: Itching Last Admin: 12/12/20 10:55 Dose: 25 mg Documented by: Dextrose (D5w) 500 mls @ 100 mls/hr IV ONCE PRN; Protocol PRN Reason: Adult Acute Hypoglycemia Prot Dobutamine HCl/Dextrose (Dobutamine Drip) 500 mg in 250 mls @ 8.308 mls/hr IV .Q24H [facility] Last Admin: 12/12/20 10:14 Dose: 3 mcg/kg/min, 5 mls/hr Documented by: Furosemide 100 mg/ Sodium (Chloride) 50 mls @ 0 mls/hr IV .Q0M [facility]; Protocol Last Admin: 12/13/20 12:32 Dose: 20 mg/hr, 10 mls/hr Documented by: Norepinephrine Bitartrate 4 mg (/ Dextrose) 254 mls @ 0 mls/hr IV .Q0M [facility]; Protocol Insulin Aspart (Insulin Aspart 100 Unit/1 Ml) 0 unit SUBCUT TIDWM [facility]; Protocol Last Admin: 12/13/20 17:00 Dose: 2 unit Documented by: Insulin Detemir (Insulin Detemir 100 Units/1 Ml) 10 unit SUBCUT DAILY@0600 [facility] Last Admin: 12/13/20 05:17 Dose: 10 unit Documented by: Levothyroxine Sodium (Levothyroxine 25 Mcg Tablet) 25 mcg PO QAM [facility] Last Admin: 12/13/20 05:19 Dose: 25 mcg Documented by: Lorazepam (Lorazepam 1 Mg Tablet) 1 mg PO BID PRN PRN Reason: ANXIETY Last Admin: 12/13/20 16:06 Dose: 1 mg Documented by: Magnesium Hydroxide (Magnesium Hydroxide 30 Ml Udc) 30 ml PO DAILY PRN PRN Reason: Constipation Last Admin: 12/08/20 05:50 Dose: 30 ml Documented by: Metolazone (Metolazone 5 Mg Tablet) 5 mg PO DAILY [facility] Last Admin: 12/13/20 09:07 Dose: 5 mg Documented by: Metoprolol Tartrate (Metoprolol Tartrate 25 Mg Tablet) 25 mg PO BID@0800,2000 [facility] Last Admin: 12/13/20 09:14 Dose: 25 mg Documented by: Naloxone HCl (Naloxone 0.4 Mg/Ml Sdv) 0.1 mg IVP Q2M PRN PRN Reason: OPIATERV Non-Formulary Medication (Honey [Medihoney (Honey)]) 1 applic TOPICAL DAILY [facility] Last Admin: 12/13/20 09:15 Dose: Not Given Documented by: Nystatin (Nystatin Cream 30 Gm) 1 applic TOPICAL TID PRN PRN Reason: Rash Ondansetron HCl (Ondansetron 2 Mg/Ml Sdv 2 Ml) 4 mg IVP Q6H PRN PRN Reason: NAUSEA AND VOMITING Last Admin: 12/10/20 00:56 Dose: 4 mg Documented by: Pantoprazole Sodium (Pantoprazole Dr 40 Mg Tablet) 40 mg PO DAILY@0800 [facility] Last Admin: 12/13/20 09:07 Dose: 40 mg Documented by: Polyethylene Glycol (Polyethylene Glycol 3350 Pkt 17 Gm) 17 gm PO DAILY PRN PRN Reason: Constipation Potassium Chloride (Potassium Chloride Er 20 Meq Tablet) 40 meq PO BID [facility] Last Admin: 12/13/20 17:00 Dose: 40 meq Documented by: Rivaroxaban (Rivaroxaban 10 Mg Tablet) 15 mg PO DAILY@0800 [facility] Last Admin: 12/13/20 09:07 Dose: 15 mg Documented by: Vitals/I&O/Wt Last Vital Signs Temp 97.8 F 12/13/20 12:00 Pulse 103 H 12/13/20 16:00 Resp 27 H 12/13/20 16:00 BP 126/71 12/13/20 16:00 Pulse Ox 97 12/13/20 16:00 12/13/20 12/13/20 12/13/20 06:59 14:59 22:59 Intake Total 50 / 1039.417 240 / 240 200 / 440 Output Total 1300 / 1950 400 / 400 Balance -1250 / -910.583 -160 / -160 200 / 40 Weight last 48 hrs Weight 217 lb Weight 219 lb Physical Exam Narrative: EXAM NARRATIVE: EXAM NARRATIVE: Const: COMMON NORMALS: no acute distress, patient oriented x3 and alert GENERAL APPEARANCE: cooperative, comfortable and well [facility] COMMON NORMALS: normocephalic, atraumatic, hearing grossly normal bilaterally and external ears normal HEAD & SCALP: normocephalic and atraumatic FACE & SINUS: normal facial exam and no edema EXTERNAL EAR: Yes external ears normal Eye COMMON NORMALS: Equal, round and reactive pupils present, EOMs intact bilaterally, conjunctivae normal and no scleral icterus GENERAL EYE: appearance normal, both eyes and all related structures ALIGNMENT: Yes alignment normal EYELID: eyelids normal CONJUNCTIVA: Yes conjunctivae normal SCLERA: sclerae normal PUPIL: Yes Equal, round and reactive pupils present Neck/C-Spine COMMON NORMALS: supple and Thyroid normal GENERAL: Yes normal visual inspection, Yes trachea midline and No Mass present (neck) THYROID: Thyroid normal CAROTIDS: Yes normal carotid upstroke CERVICAL SPINE: Yes cervical ROM normal Chest COMMONS NORMALS: normal inspection of the chest and normal palpation of entire chest wall CHEST: Yes Symmetrical chest wall rise, No mass, No tenderness, + Surgical scars present (Chest) of sternotomy and No rash, left upper chest permanent pacemaker in place Resp COMMON NORMALS: clear to auscultation bilaterally EFFORT & INSPECTION: Yes able to speak in complete sentences, No respiratory distress and No labored AUSCULTATION: clear to auscultation bilaterally, decreased breath sounds at bases, no wheezes and vesicular breath sounds Cardio COMMON NORMALS: S1 and S2 irregular of variable intensity JUGULAR VENOUS DISTENTION: JVD PALPATION: normal PMI RHYTHM: abnormal rhythm irregularly irregular HEART SOUNDS: S1 normal heart sound present, S2 normal heart sound present, no gallops and no murmurs BRUITS: no abdominal aortic bruits, no carotid bruits and no femoral bruits PERIPHERAL PULSES: Peripheral pulses 2+ throughout, radial pulses present, posterior tibial pulses present and dorsalis pedis present GI COMMON NORMALS: Soft to palpation AUSCULTATION: Yes normoactive bowel sounds PALPATION: Yes Soft to palpation, No Tenderness to palpation present (GI), No Guarding due to palpation present (GI), No Rigid due to palpation, Extremity GENERAL: No calf tenderness, No clubbing, Yes edema (4+ edema extending above knees), weeping legs. Left shoulder pain Neuro COMMON NORMALS: patient oriented x3 SENSORIUM/ORIENTATION: Yes drowsy but arousable Psych APPEARANCE: Yes well kempt MOOD & AFFECT: Yes depressed mood Urinary Catheter Management^: Slater: Cath Placed During This Visit: no Reason for Continuing Indwelling Catheter: Accurate Measurement of Urinary Output in Critically Ill Patients Data : 12/13/20 04:17 12/13/20 04:17 A&P Assessment and plan (1) Right heart failure: Patient has chronic RV failure with elevated JVD and peripheral edema. -She has markedly dilated RV with severely decreased RV function and severe pHTN. Septal flattening in systole and diastole consistent with RV volume and pressure overload. Hammond forming RV and RV: LV >1. -Her LV filling is volume dependant and both increase or decrease in volume can impair LV filling and CO.(Ventricular interdependance) -continue Dobutamine at 5 mcg; she may need levophed along with that. -currently on lasix 20 mg/hr. metolazone 5 mg along with Lasix drip. Patient has a poor overall prognosis. I spoke to family about the same. Status: Acute Qualifiers: Heart failure chronicity: acute on chronic Qualified Code(s): I50.813 - Acute on chronic right heart failure (2) Acute kidney injury superimposed on chronic kidney disease: Creatinine from 2.1-2--1.7 today and BUN has decreased from 46-42--44. -Nephrology on board. Status: Acute (3) Atrial fibrillation: Permanent A. fib on metoprolol, Xarelto and amiodarone. -A. fib ablation offered to patient in past and was declined. Status: Acute (4) Pulmonary hypertension: Severe pHTN WHO group 2 -unfortunately PH directed therapy has not been very beneficial in this group. Status: Acute (5) CKD (chronic kidney disease) stage 4, GFR 15-29 ml/min: BUN has decreased to 40 and creatinine has improved to 1.6., CO2 32. Status: Chronic (6) H/O tricuspid valve annuloplasty: Status: Acute (7) Status post mitral valve annuloplasty: Status: Acute (8) Diabetes: Status: Chronic Additional A&P Information PPM in situ Hyponatremia: portends poor prognosis Hypokalemia: Replaced Hypophosphatemia: Replaced Elevated alkaline phosphatase Elevated TSH Severe Depression Anemia of ID and CKD Thrombocytopenia Generalized weakness and Deconditioning Depression Thank you for allowing me to participate in patient's care. Please feel free to call with questions or concerns. Attestations Medical Necessity Statement*: needs hospital stay for CHF and SANDY on CKD Time Spent in Patient Care: Greater than 35 minutes (>than 50% of time spent in counselling and/or direct pt care on unit). 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
[2020-12-13 20:27] LABS: Glucose Point of Care 183 mg/dL (70-110)
[2020-12-13] MEDS: acetaminophen 325 mg Tablet 650 MG PO (20:28)
[2020-12-13] MEDS: atorvastatin 40 mg Tablet 20 MG PO (20:28)
[2020-12-13] MEDS: DOBUTamine drip 500 MG/250 ML PREMIX 8.3 MG IV (21:09)
[2020-12-13] MEDS: haloperidol 5 mg Tablet PO (22:40)
[2020-12-14] VITALS (50 sets, daily range): BP systolic 87–123; BP diastolic 56–79; PULSE 83–107; RESP 14–34; TEMP 36.6–37.2; O2SAT 80–98
[2020-12-14] MEDS: LORazepam 1 mg Tablet PO ×2 (00:06→19:36)
[2020-12-14] MEDS: FUROsemide 100 MG in sodium chloride 0.9% 40 ML 10 MG IV ×5 (00:33→17:55)
[2020-12-14 04:50] LABS: Eosinophils % 0.3 %; Hematocrit 33.9 % (37.0-47.0); Hemoglobin 10.3 g/dL (11.5-15.3); Lymphocytes # 0.8 10^3/uL (0.8-4.8); Lymphocytes % 19.6 %; Mean Corpuscular HGB Conc 30.4 g/dL (30.0-36.0); Mean Corpuscular Hemoglobin 24.9 pg (28.0-34.0); Mean Corpuscular Volume 82.1 fL (81-99); Mean Platelet Volume 10.4 fL (7.4-10.4); Monocytes # 0.6 10^3/uL (0.2-0.9); Neutrophils # 2.52 10^3/uL (1.8-7.7); Neutrophils % 64.1 %; Nucleated Red Blood Cells % 0 %; Platelet Count 95 10^3/cmm (130-400); Red Blood Count 4.13 10^6/uL (4.1-5.3); Red Cell Distribution Width 20.5 % (12.1-15.1); White Blood Count 3.9 10^3/uL (4.0-10.0)
[2020-12-14 05:18] LABS: Alanine Aminotransferase < 5 U/L (0-33); Albumin Level 2.5 g/dL (3.5-5.2); Alkaline Phosphatase 125 IU/L (35-105); Anion Gap 12.7 (5-19); Aspartate Amino Transferase 13 U/L (0-32); Blood Urea Nitrogen 39 mg/dL (8-23); Calcium 8.3 mg/dL (8.5-10.5); Carbon Dioxide 29 mmol/L (22-29); Chloride 92 mmol/L (98-107); Glomerular Filtration Rate 32.3 mL/min (90-130); Glucose 128 mg/dL (65-115); Magnesium 1.9 mg/dL (1.7-2.3); Osmolality Calculated 281 mOsm/kg (285-295); Phosphorus 2.4 mg/dL (2.5-4.5); Potassium 3.7 mmol/L (3.5-5.1); Sodium 130 mmol/L (136-145); Total Bilirubin 0.6 mg/dL (0.15-1.2); Total Protein 5.5 g/dL (6.6-8.7)
[2020-12-14] MEDS: levothyroxine 25 mcg Tablet PO (05:33)
[2020-12-14] MEDS: acetaminophen 325 mg Tablet 650 MG PO ×2 (05:57→19:34)
--- NOTE | 2020-12-14 07:00 | XR_ITS ---
WS: [id number] Portable AP semiupright chest, 12/14/2020 Clinical Data: sob Comparison: Portable chest, 12/12/2020. Findings: The pulmonary vascularity has increased compared to 2 days ago. Bilateral pleural effusion s are seen. The heart remains enlarged. The permanent pacemaker is in the same position. Midline ster notomy sutures are seen and the patient has had cardiac valve replacement. Monitor leads on the chest wall. XR/XR chest 1V portable [id number] Impression: 1. Increase in pulmonary vascular congestion. 2. No change in cardiomegaly.
--- NOTE | 2020-12-14 07:03 | PM.PN ---
Subjective Subjective: Interval history: She remains the same. UO 1200 ml, -300 ml Medications: Reviewed: Yes Medication Review Details: Current Medications Acetaminophen (Acetaminophen 325 Mg Tablet) 650 mg PO Q6H PRN PRN Reason: Mild/Mod Pain Or Temp >/= 101 Last Admin: 12/14/20 05:57 Dose: 650 mg Documented by: Amiodarone HCl (Amiodarone 200 Mg Tablet) 200 mg PO DAILY@0800 [facility] Last Admin: 12/13/20 09:06 Dose: 200 mg Documented by: Artificial Tears (Artificial Tears Op Soln 15 Ml Btl) 1 drop EYEAFF DAILY PRN PRN Reason: DRY EYE(S) Atorvastatin Calcium (Atorvastatin 40 Mg Tablet) 20 mg PO DAILY@1999 [facility] Last Admin: 12/13/20 20:28 Dose: 20 mg Documented by: Bisacodyl (Bisacodyl 10 Mg Supp) 10 mg MI DAILY PRN PRN Reason: Constipation Dextrose (Dextrose 50% Syringe 50 Ml) 25 ml IVP ONCE PRN; Protocol PRN Reason: hypoglycemia protocol Dextrose (Dextrose 50% Syringe 50 Ml) 50 ml IVP PRN PRN; Protocol PRN Reason: hypoglycemia protocol Escitalopram Oxalate (Escitalopram 10 Mg Tablet) 30 mg PO DAILY@0800 [facility] Last Admin: 12/13/20 09:07 Dose: 30 mg Documented by: Glucagon (Glucagon 1 Mg/Ml Inj 1 Ml) 1 mg IM ONCE PRN; Protocol PRN Reason: Adult Acute Hypoglycemia Prot. Haloperidol (Haloperidol 5 Mg Tablet) 5 mg PO BID PRN PRN Reason: AGITATION Last Admin: 12/13/20 22:40 Dose: 5 mg Documented by: Hydroxyzine Pamoate (Hydroxyzine 25 Mg Capsule) 25 mg PO TID PRN PRN Reason: Itching Last Admin: 12/12/20 10:55 Dose: 25 mg Documented by: Dextrose (D5w) 500 mls @ 100 mls/hr IV ONCE PRN; Protocol PRN Reason: Adult Acute Hypoglycemia Prot Dobutamine HCl/Dextrose (Dobutamine Drip) 500 mg in 250 mls @ 8.308 mls/hr IV .Q24H [facility] Last Admin: 12/13/20 21:09 Dose: 5 mcg/kg/min, 8.3 mls/hr Documented by: Furosemide 100 mg/ Sodium (Chloride) 50 mls @ 0 mls/hr IV .Q0M [facility]; Protocol Last Admin: 12/14/20 06:18 Dose: 20 mg/hr, 10 mls/hr Documented by: Norepinephrine Bitartrate 4 mg (/ Dextrose) 254 mls @ 0 mls/hr IV .Q0M [facility]; Protocol Insulin Aspart (Insulin Aspart 100 Unit/1 Ml) 0 unit SUBCUT TIDWM [facility]; Protocol Last Admin: 12/13/20 17:00 Dose: 2 unit Documented by: Insulin Detemir (Insulin Detemir 100 Units/1 Ml) 10 unit SUBCUT DAILY@0600 [facility] Last Admin: 12/14/20 05:33 Dose: 10 unit Documented by: Levothyroxine Sodium (Levothyroxine 25 Mcg Tablet) 25 mcg PO QAM [facility] Last Admin: 12/14/20 05:33 Dose: 25 mcg Documented by: Lorazepam (Lorazepam 1 Mg Tablet) 1 mg PO BID PRN PRN Reason: ANXIETY Last Admin: 12/14/20 00:06 Dose: 1 mg Documented by: Magnesium Hydroxide (Magnesium Hydroxide 30 Ml Udc) 30 ml PO DAILY PRN PRN Reason: Constipation Last Admin: 12/08/20 05:50 Dose: 30 ml Documented by: Metolazone (Metolazone 5 Mg Tablet) 5 mg PO DAILY [facility] Last Admin: 12/13/20 09:07 Dose: 5 mg Documented by: Metoprolol Tartrate (Metoprolol Tartrate 25 Mg Tablet) 25 mg PO BID@0800,1999 [facility] Last Admin: 12/13/20 20:28 Dose: 25 mg Documented by: Naloxone HCl (Naloxone 0.4 Mg/Ml Sdv) 0.1 mg IVP Q2M PRN PRN Reason: OPIATERV Non-Formulary Medication (Honey [Medihoney (Honey)]) 1 applic TOPICAL DAILY [facility] Last Admin: 12/13/20 09:15 Dose: Not Given Documented by: Nystatin (Nystatin Cream 30 Gm) 1 applic TOPICAL TID PRN PRN Reason: Rash Ondansetron HCl (Ondansetron 2 Mg/Ml Sdv 2 Ml) 4 mg IVP Q6H PRN PRN Reason: NAUSEA AND VOMITING Last Admin: 12/10/20 00:56 Dose: 4 mg Documented by: Pantoprazole Sodium (Pantoprazole Dr 40 Mg Tablet) 40 mg PO DAILY@0800 [facility] Last Admin: 12/13/20 09:07 Dose: 40 mg Documented by: Polyethylene Glycol (Polyethylene Glycol 3350 Pkt 17 Gm) 17 gm PO DAILY PRN PRN Reason: Constipation Potassium Chloride (Potassium Chloride Er 20 Meq Tablet) 40 meq PO BID [facility] Last Admin: 12/13/20 17:00 Dose: 40 meq Documented by: Rivaroxaban (Rivaroxaban 10 Mg Tablet) 15 mg PO DAILY@0800 [facility] Last Admin: 12/13/20 09:07 Dose: 15 mg Documented by: Vitals/I&O/Wt Last Vital Signs Temp 97.8 F 12/14/20 02:00 Pulse 96 12/14/20 06:00 Resp 23 H 12/14/20 04:30 BP 89/64 12/14/20 04:30 Pulse Ox 95 12/14/20 04:30 12/13/20 12/14/20 12/14/20 22:59 06:59 14:59 Intake Total 424.583 / 664.583 250 / 914.583 Output Total 875 / 1275 Balance 424.583 / 264.583 -625 / -360.417 Weight last 48 hrs Weight 210 lb 12.191 oz Weight 217 lb Physical Exam Narrative: EXAM NARRATIVE: EXAM NARRATIVE: Const: COMMON NORMALS: no acute distress, patient oriented x3 and alert GENERAL APPEARANCE: cooperative, comfortable and well kempt [facility] COMMON NORMALS: normocephalic, atraumatic, hearing grossly normal bilaterally and external ears normal HEAD & SCALP: normocephalic and atraumatic FACE & SINUS: normal facial exam and no edema EXTERNAL EAR: Yes external ears normal Eye COMMON NORMALS: Equal, round and reactive pupils present, EOMs intact bilaterally, conjunctivae normal and no scleral icterus GENERAL EYE: appearance normal, both eyes and all related structures ALIGNMENT: Yes alignment normal EYELID: eyelids normal CONJUNCTIVA: Yes conjunctivae normal SCLERA: sclerae normal PUPIL: Yes Equal, round and reactive pupils present Neck/C-Spine COMMON NORMALS: supple and Thyroid normal GENERAL: Yes normal visual inspection, Yes trachea midline and No Mass present (neck) THYROID: Thyroid normal CAROTIDS: Yes normal carotid upstroke CERVICAL SPINE: Yes cervical ROM normal Chest COMMONS NORMALS: normal inspection of the chest and normal palpation of entire chest wall CHEST: Yes Symmetrical chest wall rise, No mass, No tenderness, + Surgical scars present (Chest) of sternotomy and No rash, left upper chest permanent pacemaker in place Resp COMMON NORMALS: clear to auscultation bilaterally EFFORT & INSPECTION: Yes able to speak in complete sentences, No respiratory distress and No labored AUSCULTATION: clear to auscultation bilaterally, decreased breath sounds at bases, no wheezes and vesicular breath sounds Cardio COMMON NORMALS: S1 and S2 irregular of variable intensity JUGULAR VENOUS DISTENTION: JVD PALPATION: normal PMI RHYTHM: abnormal rhythm irregularly irregular HEART SOUNDS: S1 normal heart sound present, S2 normal heart sound present, no gallops and no murmurs BRUITS: no abdominal aortic bruits, no carotid bruits and no femoral bruits PERIPHERAL PULSES: Peripheral pulses 2+ throughout, radial pulses present, posterior tibial pulses present and dorsalis pedis present GI COMMON NORMALS: Soft to palpation AUSCULTATION: Yes normoactive bowel sounds PALPATION: Yes Soft to palpation, No Tenderness to palpation present (GI), No Guarding due to palpation present (GI), No Rigid due to palpation, Extremity GENERAL: No calf tenderness, No clubbing, Yes edema (4+ edema extending above knees), weeping legs. Left shoulder pain Neuro COMMON NORMALS: patient oriented x3 SENSORIUM/ORIENTATION: Yes drowsy but arousable Psych APPEARANCE: Yes well kempt MOOD & AFFECT: Yes depressed mood Urinary Catheter Management^: Slater: Cath Placed During This Visit: no Reason for Continuing Indwelling Catheter: Accurate Measurement of Urinary Output in Critically Ill Patients Data : 12/14/20 04:39 12/14/20 04:39 A&P Assessment and plan (1) Right heart failure: Patient has chronic RV failure with elevated JVD and peripheral edema. -She has markedly dilated RV with severely decreased RV function and severe pHTN. Septal flattening in systole and diastole consistent with RV volume and pressure overload. [place] forming RV and RV: LV >1. -Her LV filling is volume dependant and both increase or decrease in volume can impair LV filling and CO.(Ventricular interdependance) -continue Dobutamine at 5 mcg; she may need levophed along with that. -currently on lasix 20 mg/hr. metolazone 5 mg along with Lasix drip. Patient and family still in the process of deciding on hospice versus dialysis for fluid management. Status: Acute Qualifiers: Heart failure chronicity: acute on chronic Qualified Code(s): I50.813 - Acute on chronic right heart failure (2) Acute kidney injury superimposed on chronic kidney disease: Creatinine from 1.6 today and BUN 39. -Nephrology on board. Status: Acute (3) Atrial fibrillation: Permanent A. fib on metoprolol, Xarelto and amiodarone. -A. fib ablation offered to patient in past and was declined. Status: Acute (4) Pulmonary hypertension: Severe pHTN WHO group 2 -unfortunately PH directed therapy has not been very beneficial in this group. Status: Acute (5) CKD (chronic kidney disease) stage 4, GFR 15-29 ml/min: BUN has decreased to 40 and creatinine has improved to 1.6., CO2 32. Status: Chronic (6) H/O tricuspid valve annuloplasty: Status: Acute (7) Status post mitral valve annuloplasty: Status: Acute (8) Diabetes: Status: Chronic Additional A&P Information PPM in situ Hyponatremia: portends poor prognosis Hypokalemia: Replaced Hypophosphatemia: Replaced Elevated alkaline phosphatase Elevated TSH Severe Depression Anemia of ID and CKD Thrombocytopenia Generalized weakness and Deconditioning Depression Thank you for allowing me to participate in patient's care. Please feel free to call with questions or concerns. Attestations Medical Necessity Statement*: needs hospital stay for CHF and SANDY on CKD Time Spent in Patient Care: Greater than 35 minutes (>than 50% of time spent in counselling and/or direct pt care on unit). Critical Care Time: Critical Care Time (min): 40 Coding Level of Care Code Acute Stencil Cutter Machine for Braeden Kuhn Diagnoses Right heart failure I50.813 Heart failure chronicity: acute on chronic Acute kidney injury superimposed on chronic kidney disease N17.9; N18.9 Atrial fibrillation I48.91 Pulmonary hypertension I27.20 CKD (chronic kidney disease) stage 4, GFR 15-29 ml/min N18.4 H/O tricuspid valve annuloplasty Z98.890 Status post mitral valve annuloplasty Z98.890 Diabetes E11.9
[2020-12-14 07:35] LABS: Glucose Point of Care 116 mg/dL (70-110)
[2020-12-14] MEDS: escitalopram 10 mg Tablet 30 MG PO (07:48)
[2020-12-14] MEDS: pantoprazole DR 40 mg Tablet PO (07:48)
[2020-12-14] MEDS: potassium chloride ER 20 mEq Tablet 40 MEQ PO ×2 (07:48→16:53)
[2020-12-14] MEDS: rivaroxaban 10 mg Tablet 15 MG PO (07:48)
[2020-12-14] MEDS: metoprolol tartrate 25 mg Tablet PO ×2 (07:49→19:35)
[2020-12-14] MEDS: metOLazone 5 MG Tablet PO (07:49)
[2020-12-14] MEDS: amiodarone 200 mg Tablet PO (07:51)
[2020-12-14] MEDS: phosphorus 250 mg Tablet PO ×2 (08:08→16:55)
[2020-12-14] MEDS: methylphenidate 10 mg Tablet 5 MG PO ×2 (08:08→16:55)
--- NOTE | 2020-12-14 09:32 | PC.CHAP ---
Pastoral Care Encounter/Spiritual Assessment Type of Contact [] Declined nurse sitter visit [] Patient/Family/Request visit [] Outpatient visit [] Follow-up visit [] Physician referral [] Code/Alert [] Routine visit [] Staff referral [] Actively dying [] Patient sleeping [] Family support [] [] Out of room [] Palliative care [] [] Receiving care in room [] Pre-surgical visit [] Trauma [] Long length of stay [x] ICU visit [] Other: Relational/Emotional Strength [] Patient feels connected with others/family/visitors/staff [] Distress [] Loneliness/isolation [] Abandonment Spirituality of Patient [] Person of [place] [] Attends Protestant of their [place] [] Believes in Prayer [] Reads Bible or Yazidi materials [] There are Spiritual issues to be addressed 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 Interventions [x] Prayer [x] Active listening [x] Non-anxious presence [x] Spiritual/emotional support [] Crisis/trauma care [] Spiritual counseling [] Bereavement support [] Provided bereavement packet [] Provided Bible/devotional materials [] Provided toy/stuffed animal, coloring book to patient or family member [] Provided Communion [] Anointing/[place] [] Salvation [x] Completed spiritual assessment [] Other: Impact on Illness or Injury [] Angry [] Fearful [] Anxious [] Often cries [] Exhaustion [] Unable to work [] Unable to attend rastafarian [] Unable to walk/stand [] Unable to read [] Unable to drive [] Unable to eat/drink [] Unable to sleep [] Unable to be with family [] Patient intubated [] Other: Summary Time spent with patient
--- NOTE | 2020-12-14 10:21 | PC.SOCIAL ---
IMM Update Pg. 2 of IMM updated and reviewed with patient who verbalized understanding. Copy provided.
[2020-12-14 11:09] LABS: Glucose Point of Care 149 mg/dL (70-110)
--- NOTE | 2020-12-14 12:22 | P.PN_ITS ---
Subjective Subjective: Interval history: Yesterday patient remained in bed, she continues to have a poor appetite, urine output was 1950 cc, last night she told the nurse that she wanted to go on hospice, this morning I had a discussion with hospice in front of nursing staff, I discussed hospice option with her, the goals of care with her, she is agreeable to consider hospice, would like to speak to the hospice nurse. I have discussed with Dr. Pavon, would prefer patient to be off dobutamine, and would like her to receive 1 more day of diuresis, will revisit hospice option tomorrow Medications: Medication Review Details: Current Medications Acetaminophen (Acetaminophen 325 Mg Tablet) 650 mg PO Q6H PRN PRN Reason: Mild/Mod Pain Or Temp >/= 101 Last Admin: 12/14/20 05:57 Dose: 650 mg Documented by: Amiodarone HCl (Amiodarone 200 Mg Tablet) 200 mg PO DAILY@0800 [facility] Last Admin: 12/13/20 09:06 Dose: 200 mg Documented by: Artificial Tears (Artificial Tears Op Soln 15 Ml Btl) 1 drop EYEAFF DAILY PRN PRN Reason: DRY EYE(S) Atorvastatin Calcium (Atorvastatin 40 Mg Tablet) 20 mg PO DAILY@1999 [facility] Last Admin: 12/13/20 20:28 Dose: 20 mg Documented by: Bisacodyl (Bisacodyl 10 Mg Supp) [address] DAILY PRN PRN Reason: Constipation Dextrose (Dextrose 50% Syringe 50 Ml) 25 ml IVP ONCE PRN; Protocol PRN Reason: hypoglycemia protocol Dextrose (Dextrose 50% Syringe 50 Ml) 50 ml IVP PRN PRN; Protocol PRN Reason: hypoglycemia protocol Escitalopram Oxalate (Escitalopram 10 Mg Tablet) 30 mg PO DAILY@0800 [facility] Last Admin: 12/13/20 09:07 Dose: 30 mg Documented by: Glucagon (Glucagon 1 Mg/Ml Inj 1 Ml) 1 mg IM ONCE PRN; Protocol PRN Reason: Adult Acute Hypoglycemia Prot. Haloperidol (Haloperidol 5 Mg Tablet) 5 mg PO BID PRN PRN Reason: AGITATION Last Admin: 12/13/20 22:40 Dose: 5 mg Documented by: Hydroxyzine Pamoate (Hydroxyzine 25 Mg Capsule) 25 mg PO TID PRN PRN Reason: Itching Last Admin: 12/12/20 10:55 Dose: 25 mg Documented by: Dextrose (D5w) 500 mls @ 100 mls/hr IV ONCE PRN; Protocol PRN Reason: Adult Acute Hypoglycemia Prot Dobutamine HCl/Dextrose (Dobutamine Drip) 500 mg in 250 mls @ 8.308 mls/hr IV .Q24H [facility] Last Admin: 12/13/20 21:09 Dose: 5 mcg/kg/min, 8.3 mls/hr Documented by: Furosemide 100 mg/ Sodium (Chloride) 50 mls @ 0 mls/hr IV .Q0M [facility]; Protocol Last Admin: 12/14/20 06:18 Dose: 20 mg/hr, 10 mls/hr Documented by: Norepinephrine Bitartrate 4 mg (/ Dextrose) 254 mls @ 0 mls/hr IV .Q0M [facility]; Protocol Insulin Aspart (Insulin Aspart 100 Unit/1 Ml) 0 unit SUBCUT TIDWM [facility]; Protocol Last Admin: 12/13/20 17:00 Dose: 2 unit Documented by: Insulin Detemir (Insulin Detemir 100 Units/1 Ml) 10 unit SUBCUT DAILY@0600 [facility] Last Admin: 12/14/20 05:33 Dose: 10 unit Documented by: Levothyroxine Sodium (Levothyroxine 25 Mcg Tablet) 25 mcg PO QAM [facility] Last Admin: 12/14/20 05:33 Dose: 25 mcg Documented by: Lorazepam (Lorazepam 1 Mg Tablet) 1 mg PO BID PRN PRN Reason: ANXIETY Last Admin: 12/14/20 00:06 Dose: 1 mg Documented by: Magnesium Hydroxide (Magnesium Hydroxide 30 Ml Udc) 30 ml PO DAILY PRN PRN Reason: Constipation Last Admin: 12/08/20 05:50 Dose: 30 ml Documented by: Metolazone (Metolazone 5 Mg Tablet) 5 mg PO DAILY [facility] Last Admin: 12/13/20 09:07 Dose: 5 mg Documented by: Metoprolol Tartrate (Metoprolol Tartrate 25 Mg Tablet) 25 mg PO BID@0800,1999 [facility] Last Admin: 12/13/20 20:28 Dose: 25 mg Documented by: Naloxone HCl (Naloxone 0.4 Mg/Ml Sdv) 0.1 mg IVP Q2M PRN PRN Reason: OPIATERV Non-Formulary Medication (Honey [Medihoney (Honey)]) 1 applic TOPICAL DAILY [facility] Last Admin: 12/13/20 09:15 Dose: Not Given Documented by: Nystatin (Nystatin Cream 30 Gm) 1 applic TOPICAL TID PRN PRN Reason: Rash Ondansetron HCl (Ondansetron 2 Mg/Ml Sdv 2 Ml) 4 mg IVP Q6H PRN PRN Reason: NAUSEA AND VOMITING Last Admin: 12/10/20 00:56 Dose: 4 mg Documented by: Pantoprazole Sodium (Pantoprazole Dr 40 Mg Tablet) 40 mg PO DAILY@0800 [facility] Last Admin: 12/13/20 09:07 Dose: 40 mg Documented by: Polyethylene Glycol (Polyethylene Glycol 3350 Pkt 17 Gm) 17 gm PO DAILY PRN PRN Reason: Constipation Potassium Chloride (Potassium Chloride Er 20 Meq Tablet) 40 meq PO BID [facility] Last Admin: 12/13/20 17:00 Dose: 40 meq Documented by: Rivaroxaban (Rivaroxaban 10 Mg Tablet) 15 mg PO DAILY@0800 [facility] Last Admin: 12/13/20 09:07 Dose: 15 mg Documented by: Vitals/I&O/Wt Last Vital Signs Temp 98.9 F 12/14/20 10:46 Pulse 95 12/14/20 09:00 Resp 26 H 12/14/20 09:00 BP 91/63 12/14/20 09:00 Pulse Ox 98 12/14/20 09:00 12/13/20 12/14/20 12/14/20 22:59 06:59 14:59 Intake Total 424.583 / 664.583 250 / 914.583 290.166 / 290.166 Output Total 875 / 1275 300 / 300 Balance 424.583 / 264.583 -625 / -360.417 -9.834 / -9.834 Weight last 48 hrs Weight 95.6 kg Weight 98.43 kg Physical Exam Narrative: EXAM NARRATIVE: Generalized anasarca Const: COMMON NORMALS: no acute distress and patient oriented x3 GENERAL APPEARANCE: cooperative and comfortable ORIENTATION/CONSCIOUSNESS: Yes awake, Yes oriented to person and Yes oriented to place; not oriented to time OTHER: Generalized anasarca HENMT: COMMON NORMALS: normocephalic HEAD & SCALP: normocephalic Neck/C-Spine: COMMON NORMALS: no JVD Resp: COMMON NORMALS: normal respiratory effort, No retractions, No use of accessory muscles and clear to auscultation bilaterally AUSCULTATION: clear to auscultation bilaterally Cardio: COMMON NORMALS: no JVD, regular rate, regular rhythm, S1 normal heart sound present and S2 normal heart sound present RATE: regular rate RHYTHM: regular rhythm HEART SOUNDS: S1 normal heart sound present and S2 normal heart sound present GI: COMMON NORMALS: Normal to inspection, nondistended, normoactive bowel sounds present, Soft to palpation, non-tender, No hepatosplenomegaly present, no masses and no bruits PALPATION: Yes Soft to palpation and Yes No hepatosplenomegaly present Extremity: COMMON NORMALS: capillary refill normal, no clubbing, cyanosis or edema, no calf tenderness and no pedal edema Neuro: COMMON NORMALS: patient oriented x3 SENSORIUM/ORIENTATION: Yes oriented to person, Yes oriented to place and No oriented to time Psych: COMMON NORMALS: mental status grossly normal Skin: NARRATIVE SKIN EXAM: Generalized anasarca OTHER: Diffuse anasarca, 1+ pitting edema bilaterally Urinary Catheter Management^: Slater: Cath Placed During This Visit: no Reason for Continuing Indwelling Catheter: Accurate Measurement of Urinary Output in Critically Ill Patients Data : 12/14/20 04:39 12/14/20 04:39 A&P Assessment and plan (1) Anasarca: -Likely secondary to diastolic CHF, right-sided heart failure, pulmonary hypertension, cardiorenal syndrome -has gained roughly 10 pounds in the last few days, weight on last admission was 83 kg, weight on admission was 90.6 kg -Echocardiogram from October 30, 2020 shows: Small left ventricular cavity size. Normal left ventricular cavity size. Left ventricular ejection fraction is estimated at 55 %. Flattened septum in diastole consistent with right ventricle volume overload. 2-Severely increased right ventricular size. Severely decreased right ventricular systolic function. Moderate pulmonary hypertension, RVSP 65 mmHg. 3-Severely increased right atrial size. 4-Moderately increased left atrial size. 5-Severely thickened mitral valve. Severe mitral annular calcification. No mitral valve stenosis. Moderate to severe mitral valve regurgitation. 6-Severe aortic valve calcification. Moderate aortic valve stenosis, mean gradient, aortic valve is not well-visualized therefore cannot assess gradient on aortic valve area however appears to be moderately stenotic. 7-Structurally normal tricuspid valve without significant stenosis or regurgitation. Pulmonary artery systolic pressure is normal. 8-There is no pericardial effusion. 9-Right atrial pressure is around 20 mm of mercury. -Urine output has improved to over 1950cc continues to have diffuse anasarca, she is -6.7 L, serum sodium 130, potassium 3.2 Plan: -Fluid restrictions -Daily weights -Currently in ICU, receiving dobutamine drip, Lasix drip -Monitor creatinine and urine output closely -Cardiology on consult -Nephrology on consult -Receiving potassium supplementation today -Overall poor prognosis -Agreeable on hospice, but will revisit option tomorrow -On last admission patient had SANDY secondary to diuretics, hypoperfusion, has chronic hypotension, prerenal azotemia will start slow diuretic therapy and monitor her clinical response as she has CKD Plan for today, Lasix drip, dobutamine drip, monitor urine output, encourage to get up out of bed, encourage oral intake Status: Acute (2) Hyponatremia: Monitor sodium levels closely given diuresis Status: Acute (3) CKD (chronic kidney disease) stage 4, GFR 15-29 ml/min: Creatinine up to 1.7 today. Hypertension. Status: Chronic (4) Pulmonary hypertension: Status: Acute (5) Right heart failure: Status: Acute Qualifiers: Heart failure chronicity: acute on chronic Qualified Code(s): I50.813 - Acute on chronic right heart failure (6) Pleural effusion: Status: Acute (7) Atrial fibrillation: Continue amiodarone I have resumed Xarelto Status: Acute (8) Diabetes: Low-dose sliding scale Levemir 10 units in the morning Status: Chronic (9) Diastolic CHF: Status: Acute (10) Pacemaker: Status: Acute (11) H/O tricuspid valve annuloplasty: Status: Acute (12) Status post mitral valve annuloplasty: Status: Acute (13) Urinary tract infection: -Finish antibiotics -Follow urine cultures, blood cultures -CT scan of the abdomen pelvis does not show any obstructive uropathy or pyelonephritis -Has finished Bactrim therapy Status: Acute (14) Chronic hypotension: -Has chronic hypotension on midodrine, -Continue midodrine for now Status: Acute (15) Cellulitis of left wrist: -X-ray of the wrist shows cellulitis, improving, finished antibiotic therapy Status: Acute (16) Thrombocytopenia: -Likely secondary to fatty liver disease, and liver cirrhosis, CT scan of the abdomen shows liver irregularity suggesting liver cirrhosis, -For now Xarelto continued, no signs of bleeding -Monitor for bleeding -SCDs for DVT prophylaxis Status: Acute (17) Suicidal ideation: -Has suicidal ideation, no active ideation, no plan -We will have Dr. Gilman see patient -Also has poor appetite, decreased willingness to participate in activities, does not want to do physical therapy, does not want to move -Unfortunately seems like Lizzie has just given up, she is not willing to participate in physical therapy, she is not willing to move, she denies been willing to change the channel on television, she just wants to be left alone, given her severe anasarca, and immobility, fluid will tend to reaccumulate in her legs and her lungs, the severe recurring phenomenon, recurring admission, high risk of morbidity and mortality, high risk of DVTs and PEs, UTIs, pneum onias, sepsis, septic shock -Patient's brother states that ultimately it is her decision to make about hospice, will have to reach out to psychiatry team to ensure that she can make decisions for herself given her suicidal ideation -Patient is not ready to make a decision hospice Status: Acute Additional A&P Information Has chronic hypotension, is on midodrine, likely related to right-sided heart failure Attestations Medical Necessity Statement*: Patient requires hospitalization for severe anasarca, right-sided heart failure, pulmonary hypertension Coding Level of Care Code Acute Size Marker for [facility] Fwd Diagnoses Anasarca R60.1 Hyponatremia E87.1 CKD (chronic kidney disease) stage 4, GFR 15-29 ml/min N18.4 Pulmonary hypertension I27.20 Right heart failure I50.813 Heart failure chronicity: acute on chronic Pleural effusion J90 Atrial fibrillation I48.91 Diabetes E11.9 Diastolic CHF I50.30 Pacemaker Z95.0 H/O tricuspid valve annuloplasty Z98.890 Status post mitral valve annuloplasty Z98.890 Urinary tract infection N39.0 Chronic hypotension I95.89 Cellulitis of left wrist L03.114 Thrombocytopenia D69.6 Suicidal ideation R45.851
--- NOTE | 2020-12-14 14:33 | P.PN_ITS ---
Subjective Subjective: Interval history: Ms. Pro continues to feel extremely unwell, extremely weak, she is very edematous today although she is breathing comfortably on nasal cannula oxygen. She has been on the Dobutrex infusion as well as Lasix, with a poor urinary output. She denies uremic symptoms. Hemodynamics otherwise reviewed and remained labile. I appreciate hospice has now consulted, she is in discussion with her sister about what she wants to do. Vitals/I&O/Wt Last Vital Signs Temp 97.9 F 12/14/20 14:13 Pulse 89 12/14/20 14:00 Resp 27 H 12/14/20 12:30 BP 88/61 12/14/20 12:30 Pulse Ox 92 12/14/20 12:30 12/13/20 12/14/20 12/14/20 22:59 06:59 14:59 Intake Total 424.583 / 664.583 250 / 914.583 770.166 / 770.166 Output Total 875 / 1275 550 / 550 Balance 424.583 / 264.583 -625 / -360.417 220.166 / 220.166 Weight last 48 hrs Weight 95.6 kg Weight 98.43 kg Physical Exam Narrative: EXAM NARRATIVE: Constitutional: Awake, comfortable HEENT: Wet mucosa, no jvp, non icteric Lungs: Bilaterally clear without discernible wheeze, rales in all lung zones CVS: S1 S2, no murmurs Abdo: Soft, BS ok Ext 4: global edema, peripheral perfusion with no cyanosis Neurological: Grossly non-focal Urinary Catheter Management^: Slater: Cath Placed During This Visit: no Reason for Continuing Indwelling Catheter: Accurate Measurement of Urinary Output in Critically Ill Patients Data : 12/14/20 04:39 12/14/20 04:39 A&P Additional A&P Information 1. Renal Failure She has renal failure with severe anasarca recalcitrant to maximal medical the rapy. Continue dobutamine, Lasix infusion, metolazone for the time being. She is currently discussing with her sister whether she wants to pursue aggressive therapy i.e. with hemodialysis versus pursuing hospice and palliation. Avoid usual nephrotoxic agents Strict ins and outs 2. Chemistry. Minor noncritical aberration, continues to need to be followed while still pursuing active therapy. 3. Anemia. Relatively mild, hemoglobin 10.3 g/dL. 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
[2020-12-14 16:41] LABS: Glucose Point of Care 203 mg/dL (70-110)
--- NOTE | 2020-12-14 17:30 | PC.NURSE ---
Pt requested pillow cases wrapped around her lower legs. Done.
[2020-12-14] MEDS: atorvastatin 40 mg Tablet 20 MG PO (19:34)
[2020-12-14] MEDS: haloperidol 5 mg Tablet PO (19:35)
[2020-12-15] VITALS (36 sets, daily range): BP systolic 85–114; BP diastolic 56–77; PULSE 89–117; RESP 15–28; TEMP 36.2–37; O2SAT 78–97
[2020-12-15] MEDS: FUROsemide 100 MG in sodium chloride 0.9% 40 ML 10 MG IV ×4 (00:50→18:01)
[2020-12-15] MEDS: LORazepam 0.5 mg Tablet PO (02:49)
[2020-12-15] MEDS: hyDROXYzine 25 mg Capsule PO ×2 (02:49→23:55)
[2020-12-15] MEDS: haloperidol 5 mg Tablet PO ×2 (02:49→20:06)
[2020-12-15] MEDS: DOBUTamine drip 500 MG/250 ML PREMIX 8.3 MG IV ×2 (02:52→21:33)
[2020-12-15 05:12] LABS: Nucleated Red Blood Cells % 0 %; Red Cell Distribution Width 21.4 % (12.1-15.1)
[2020-12-15 05:34] LABS: Basophils % 0.9 %; Eosinophils % 0.2 %; Hemoglobin 10.6 g/dL (11.5-15.3); Lymphocytes # 0.9 10^3/uL (0.8-4.8); Lymphocytes % 21.6 %; Mean Corpuscular HGB Conc 31.2 g/dL (30.0-36.0); Mean Corpuscular Hemoglobin 26.7 pg (28.0-34.0); Mean Corpuscular Volume 85.6 fL (81-99); Monocytes # 0.6 10^3/uL (0.2-0.9); Monocytes % 12.9 %; Neutrophils # 2.71 10^3/uL (1.8-7.7); Neutrophils % 63.7 %; Platelet Count 92 10^3/cmm (130-400); Red Blood Count 3.97 10^6/uL (4.1-5.3); White Blood Count 4.3 10^3/uL (4.0-10.0)
[2020-12-15 05:38] LABS: Alanine Aminotransferase < 5 U/L (0-33); Albumin Level 2.4 g/dL (3.5-5.2); Alkaline Phosphatase 121 IU/L (35-105); Aspartate Amino Transferase 16 U/L (0-32); Blood Urea Nitrogen 41 mg/dL (8-23); Calcium 8.2 mg/dL (8.5-10.5); Carbon Dioxide 30 mmol/L (22-29); Chloride 91 mmol/L (98-107); Globulin 3.1 g/dL (1.3-4.6); Glomerular Filtration Rate 32.3 mL/min (90-130); Glucose 102 mg/dL (65-115); Magnesium 2.1 mg/dL (1.7-2.3); Osmolality Calculated 280 mOsm/kg (285-295); Phosphorus 2.4 mg/dL (2.5-4.5); Sodium 130 mmol/L (136-145); Total Bilirubin 0.7 mg/dL (0.15-1.2); Total Protein 5.5 g/dL (6.6-8.7)
[2020-12-15 05:56] LABS: Anion Gap 12.4 (5-19); Potassium 3.4 mmol/L (3.5-5.1)
[2020-12-15] MEDS: levothyroxine 25 mcg Tablet PO (06:17)
[2020-12-15 06:21] LABS: Slide Review Slide Review Perform
[2020-12-15] MEDS: potassium chloride ER 20 mEq Tablet 40 MEQ PO ×2 (09:25→17:38)
[2020-12-15] MEDS: phosphorus 250 mg Tablet PO ×2 (09:25→17:38)
[2020-12-15] MEDS: escitalopram 10 mg Tablet 30 MG PO (09:26)
[2020-12-15] MEDS: rivaroxaban 10 mg Tablet 15 MG PO (09:26)
[2020-12-15] MEDS: metOLazone 5 MG Tablet PO (09:26)
[2020-12-15] MEDS: methylphenidate 10 mg Tablet 5 MG PO ×2 (09:26→17:38)
[2020-12-15] MEDS: pantoprazole DR 40 mg Tablet PO (09:27)
[2020-12-15] MEDS: amiodarone 200 mg Tablet PO (09:27)
[2020-12-15] MEDS: metoprolol tartrate 25 mg Tablet PO ×2 (09:36→20:05)
[2020-12-15 11:43] LABS: Glucose Point of Care 68 mg/dL (70-110)
[2020-12-15 11:43] LABS: Glucose Point of Care 103 mg/dL (70-110)
--- NOTE | 2020-12-15 14:19 | PM.PN ---
Subjective Subjective: Interval history: Ms. Pro continues to feel extremely unwell, extremely weak, she is very edematous today although she is breathing comfortably on nasal cannula oxygen. She has been on the Dobutrex infusion as well as Lasix, with a poor urinary output and remains in overt positive balance. She denies uremic symptoms. Hemodynamics otherwise reviewed and remained labile. Sister at bedside with whom I have discussed with Vitals/I&O/Wt Last Vital Signs Temp 97.1 F L 12/15/20 04:00 Pulse 89 12/15/20 09:30 Resp 19 H 12/15/20 09:30 BP 102/64 12/15/20 09:30 Pulse Ox 94 12/15/20 09:30 12/14/20 12/15/20 12/15/20 22:59 06:59 14:59 Intake Total 440 / 1210.166 356.648 / 1566.814 170 / 170 Output Total 300 / 850 300 / 1150 Balance 140 / 360.166 56.648 / 416.814 170 / 170 Weight last 48 hrs Weight 95.6 kg Weight 95.6 kg Physical Exam Narrative: EXAM NARRATIVE: Constitutional: Awake, comfortable HEENT: Wet mucosa, no jvp, non icteric Lungs: Bilaterally clear without discernible wheeze, rales in all lung zones CVS: S1 S2, no murmurs Abdo: Soft, BS ok Ext 4: global edema, peripheral perfusion with no cyanosis Neurological: Grossly non-focal Urinary Catheter Management^: Slater: Cath Placed During This Visit: no Reason for Continuing Indwelling Catheter: Accurate Measurement of Urinary Output in Critically Ill Patients Data : 12/15/20 03:49 12/15/20 03:49 A&P Additional A&P Information 1. Renal Failure She has renal failure with severe anasarca recalcitrant to maximal medical therapy. Continue dobutamine, Lasix infusion, metolazone for the time being. Discussed at length with her and sister and other team members. She is at the end of a long complex deterioration. Dialysis would serve to allow her to live a little longer without improving her QOL and so is not recommended, with this in mind I would recommend full hospice care at this time. 2. Chemistry. Minor noncritical aberration, K being replaced. 3. Anemia. Relatively mild, hemoglobin 10.6 g/dL. 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
--- NOTE | 2020-12-15 15:19 | PM.PN ---
Subjective Subjective: Interval history: This morning I had discussion with the patient, and her sister at bedside I had extensive discussion about patient's right-sided heart failure, pulmonary hypertension, severe deconditioning, bedbound status, poor functional status We had a discussion about the risks and benefits of hospice and dialysis I had an extensive discussion about the risks and benefits of hospice, voiced understanding, all questions answered I had an extensive discussion about dialysis, voiced understanding, all questions answered I am awaiting a decision from patient and her sister about goals of care Medications: Reviewed: Yes Medication Review Details: Current Medications Acetaminophen (Acetaminophen 325 Mg Tablet) 650 mg PO Q6H PRN PRN Reason: Mild/Mod Pain Or Temp >/= 101 Last Admin: 12/14/20 05:57 Dose: 650 mg Documented by: Amiodarone HCl (Amiodarone 200 Mg Tablet) 200 mg PO DAILY@0800 [facility] Last Admin: 12/13/20 09:06 Dose: 200 mg Documented by: Artificial Tears (Artificial Tears Op Soln 15 Ml Btl) 1 drop EYEAFF DAILY PRN PRN Reason: DRY EYE(S) Atorvastatin Calcium (Atorvastatin 40 Mg Tablet) 20 mg PO DAILY@1999 [facility] Last Admin: 12/13/20 20:28 Dose: 20 mg Documented by: Bisacodyl (Bisacodyl 10 Mg Supp) 10 mg CA DAILY PRN PRN Reason: Constipation Dextrose (Dextrose 50% Syringe 50 Ml) 25 ml IVP ONCE PRN; Protocol PRN Reason: hypoglycemia protocol Dextrose (Dextrose 50% Syringe 50 Ml) 50 ml IVP PRN PRN; Protocol PRN Reason: hypoglycemia protocol Escitalopram Oxalate (Escitalopram 10 Mg Tablet) 30 mg PO DAILY@0800 [facility] Last Admin: 12/13/20 09:07 Dose: 30 mg Documented by: Glucagon (Glucagon 1 Mg/Ml Inj 1 Ml) 1 mg IM ONCE PRN; Protocol PRN Reason: Adult Acute Hypoglycemia Prot. Haloperidol (Haloperidol 5 Mg Tablet) 5 mg PO BID PRN PRN Reason: AGITATION Last Admin: 12/13/20 22:40 Dose: 5 mg Documented by: Hydroxyzine Pamoate (Hydroxyzine 25 Mg Capsule) 25 mg PO TID PRN PRN Reason: Itching Last Admin: 12/12/20 10:55 Dose: 25 mg Documented by: Dextrose (D5w) 500 mls @ 100 mls/hr IV ONCE PRN; Protocol PRN Reason: Adult Acute Hypoglycemia Prot Dobutamine HCl/Dextrose (Dobutamine Drip) 500 mg in 250 mls @ 8.308 mls/hr IV .Q24H [facility] Last Admin: 12/13/20 21:09 Dose: 5 mcg/kg/min, 8.3 mls/hr Documented by: Furosemide 100 mg/ Sodium (Chloride) 50 mls @ 0 mls/hr IV .Q0M [facility]; Protocol Last Admin: 12/14/20 06:18 Dose: 20 mg/hr, 10 mls/hr Documented by: Norepinephrine Bitartrate 4 mg (/ Dextrose) 254 mls @ 0 mls/hr IV .Q0M [facility]; Protocol Insulin Aspart (Insulin Aspart 100 Unit/1 Ml) 0 unit SUBCUT TIDWM [facility]; Protocol Last Admin: 12/13/20 17:00 Dose: 2 unit Documented by: Insulin Detemir (Insulin Detemir 100 Units/1 Ml) 10 unit SUBCUT DAILY@0600 [facility] Last Admin: 12/14/20 05:33 Dose: 10 unit Documented by: Levothyroxine Sodium (Levothyroxine 25 Mcg Tablet) 25 mcg PO QAM [facility] Last Admin: 12/14/20 05:33 Dose: 25 mcg Documented by: Lorazepam (Lorazepam 1 Mg Tablet) 1 mg PO BID PRN PRN Reason: ANXIETY Last Admin: 12/14/20 00:06 Dose: 1 mg Documented by: Magnesium Hydroxide (Magnesium Hydroxide 30 Ml Udc) 30 ml PO DAILY PRN PRN Reason: Constipation Last Admin: 12/08/20 05:50 Dose: 30 ml Documented by: Metolazone (Metolazone 5 Mg Tablet) 5 mg PO DAILY [facility] Last Admin: 12/13/20 09:07 Dose: 5 mg Documented by: Metoprolol Tartrate (Metoprolol Tartrate 25 Mg Tablet) 25 mg PO BID@0800,2000 [facility] Last Admin: 12/13/20 20:28 Dose: 25 mg Documented by: Naloxone HCl (Naloxone 0.4 Mg/Ml Sdv) 0.1 mg IVP Q2M PRN PRN Reason: OPIATERV Non-Formulary Medication (Honey [Medihoney (Honey)]) 1 applic TOPICAL DAILY [facility] Last Admin: 12/13/20 09:15 Dose: Not Given Documented by: Nystatin (Nystatin Cream 30 Gm) 1 applic TOPICAL TID PRN PRN Reason: Rash Ondansetron HCl (Ondansetron 2 Mg/Ml Sdv 2 Ml) 4 mg IVP Q6H PRN PRN Reason: NAUSEA AND VOMITING Last Admin: 12/10/20 00:56 Dose: 4 mg Documented by: Pantoprazole Sodium (Pantoprazole Dr 40 Mg Tablet) 40 mg PO DAILY@0800 [facility] Last Admin: 12/13/20 09:07 Dose: 40 mg Documented by: Polyethylene Glycol (Polyethylene Glycol 3350 Pkt 17 Gm) 17 gm PO DAILY PRN PRN Reason: Constipation Potassium Chloride (Potassium Chloride Er 20 Meq Tablet) 40 meq PO BID [facility] Last Admin: 12/13/20 17:00 Dose: 40 meq Documented by: Rivaroxaban (Rivaroxaban 10 Mg Tablet) 15 mg PO DAILY@0800 [facility] Last Admin: 12/13/20 09:07 Dose: 15 mg Documented by: Vitals/I&O/Wt Last Vital Signs Temp 97.1 F L 12/15/20 04:00 Pulse 92 12/15/20 14:30 Resp 18 12/15/20 14:30 BP 98/65 12/15/20 14:30 Pulse Ox 95 12/15/20 14:30 12/15/20 12/15/20 12/15/20 06:59 14:59 22:59 Intake Total 356.648 / 1566.814 290 / 290 Output Total 300 / 1150 850 / 850 Balance 56.648 / 416.814 -560 / -560 Weight last 48 hrs Weight 95.6 kg Weight 95.6 kg Physical Exam Narrative: EXAM NARRATIVE: Generalized anasarca Skin: NARRATIVE SKIN EXAM: Generalized anasarca OTHER: Diffuse anasarca, 1+ pitting edema bilaterally Urinary Catheter Management^: Slater: Cath Placed During This Visit: no Reason for Continuing Indwelling Catheter: Accurate Measurement of Urinary Output in Critically Ill Patients Data : 12/15/20 03:49 12/15/20 03:49 A&P Assessment and plan (1) Anasarca: -Likely secondary to diastolic CHF, right-sided heart failure, pulmonary hypertension, cardiorenal syndrome -has gained roughly 10 pounds in the last few days, weight on last admission was 83 kg, weight on admission was 90.6 kg -Echocardiogram from October 30, 2020 shows: Small left ventricular cavity size. Normal left ventricular cavity size. Left ventricular ejection fraction is estimated at 55 %. Flattened septum in diastole consistent with right ventricle volume overload. 2-Severely increased right ventricular size. Severely decreased right ventricular systolic function. Moderate pulmonary hypertension, RVSP 65 mmHg. 3-Severely increased right atrial size. 4-Moderately increased left atrial size. 5-Severely thickened mitral valve. Severe mitral annular calcification. No mitral valve stenosis. Moderate to severe mitral valve regurgitation. 6-Severe aortic valve calcification. Moderate aortic valve stenosis, mean gradient, aortic valve is not well-visualized therefore cannot assess gradient on aortic valve area however appears to be moderately stenotic. 7-Structurally normal tricuspid valve without significant stenosis or regurgitation. Pulmonary artery systolic pressure is normal. 8-There is no pericardial effusion. 9-Right atrial pressure is around 20 mm of mercury. -Urine output has improved to over 1300cc continues to have diffuse anasarca Plan: -Fluid restrictions -Daily weights -Currently in ICU, receiving dobutamine drip, Lasix drip -Monitor creatinine and urine output closely -Cardiology on consult -Nephrology on consult -Receiving potassium supplementation today -Overall poor prognosis -Awaiting decision based on discussion with patient and her sister -On last admission patient had SANDY secondary to diuretics, hypoperfusion, has chronic hypotension, prerenal azotemia will start slow diuretic therapy and monitor her clinical response as she has CKD Plan for today, Lasix drip, dobutamine drip, monitor urine output, encourage to get up out of bed, encourage oral intake Status: Acute (2) Hyponatremia: Monitor sodium levels closely given diuresis Status: Acute (3) CKD (chronic kidney disease) stage 4, GFR 15-29 ml/min: Creatinine up to 1.7 today. Hypertension. Status: Chronic (4) Pulmonary hypertension: Status: Acute (5) Right heart failure: Status: Acute Qualifiers: Heart failure chronicity: acute on chronic Qualified Code(s): I50.813 - Acute on chronic right heart failure (6) Pleural effusion: Status: Acute (7) Atrial fibrillation: Continue amiodarone I have resumed Xarelto Status: Acute (8) Diabetes: Low-dose sliding scale Levemir 10 units in the morning Status: Chronic (9) Diastolic CHF: Status: Acute (10) Pacemaker: Status: Acute (11) H/O tricuspid valve annuloplasty: Status: Acute (12) Status post mitral valve annuloplasty: Status: Acute (13) Urinary tract infection: -Finish antibiotics -Follow urine cultures, blood cultures -CT scan of the abdomen pelvis does not show any obstructive uropathy or pyelonephritis -Has finished Bactrim therapy Status: Acute (14) Chronic hypotension: -Has chronic hypotension on midodrine, -Continue midodrine for now Status: Acute (15) Cellulitis of left wrist: -X-ray of the wrist shows cellulitis, improving, finished antibiotic therapy Status: Acute (16) Thrombocytopenia: -Likely secondary to fatty liver disease, and liver cirrhosis, CT scan of the abdomen shows liver irregularity suggesting liver cirrhosis, -For now Xarelto continued, no signs of bleeding -Monitor for bleeding -SCDs for DVT prophylaxis Status: Acute (17) Suicidal ideation: -Has suicidal ideation, no active ideation, no plan -We will have Dr. Gilman see patient -Also has poor appetite, decreased willingness to participate in activities, does not want to do physical therapy, does not want to move -Unfortunately seems like Lizzie has just given up, she is not willing to participate in physical therapy, she is not willing to move, she denies been willing to change the channel on television, she just wants to be left alone, given her severe anasarca, and immobility, fluid will tend to reaccumulate in her legs and her lungs, the severe recurring phenomenon, recurring admission, high risk of morbidity and mortality, high risk of DVTs and PEs, UTIs, pneumonias, sepsis, septic shock -Patient's brother states that ultimately it is her decision to make about hospice, will have to reach out to psychiatry team to ensure that she can make decisions for herself given her suicidal ideation -Patient is not ready to make a decision hospice Status: Acute Additional A&P Information Has chronic hypotension, is on midodrine, likely related to right-sided heart failure Attestations Medical Necessity Statement*: Patient requires hospitalization for diffuse anasarca secondary to right-sided heart failure Coding Level of Care Code Acute [employer] for [employer] Diagnoses Anasarca R60.1 Hyponatremia E87.1 CKD (chronic kidney disease) stage 4, GFR 15-29 ml/min N18.4 Pulmonary hypertension I27.20 Right heart failure I50.813 Heart failure chronicity: acute on chronic Pleural effusion J90 Atrial fibrillation I48.91 Diabetes E11.9 Diastolic CHF I50.30 Pacemaker Z95.0 H/O tricuspid valve annuloplasty Z98.890 Status post mitral valve annuloplasty Z98.890 Urinary tract infection N39.0 Chronic hypotension I95.89 Cellulitis of left wrist L03.114 Thrombocytopenia D69.6 Suicidal ideation R45.851
[2020-12-15] MEDS: LORazepam 1 mg Tablet PO (16:51)
--- NOTE | 2020-12-15 16:58 | PC.NURSE ---
Patient refusing to turn. Patient educated on Q2T and bedsores
[2020-12-15 17:15] LABS: Glucose Point of Care 102 mg/dL (70-110)
--- NOTE | 2020-12-15 19:49 | P.PN_ITS ---
Subjective Subjective: Interval history: Patient has been made hospice. Medications: Reviewed: Yes Vitals/I&O/Wt Last Vital Signs Temp 97.1 F L 12/15/20 04:00 Pulse 96 12/15/20 16:30 Resp 21 H 12/15/20 16:30 BP 95/59 12/15/20 16:30 Pulse Ox 95 12/15/20 16:30 12/15/20 12/15/20 12/15/20 06:59 14:59 22:59 Intake Total 356.648 / 1566.814 290 / 290 170 / 460 Output Total 300 / 1150 850 / 850 400 / 1250 Balance 56.648 / 416.814 -560 / -560 -230 / -790 Weight last 48 hrs Weight 210 lb 12.191 oz Weight 210 lb 12.191 oz Physical Exam Narrative: EXAM NARRATIVE: EXAM NARRATIVE: EXAM NARRATIVE: Const: COMMON NORMALS: no acute distress, patient oriented x3 and alert GENERAL APPEARANCE: cooperative, comfortable and well kempt [facility] COMMON NORMALS: normocephalic, atraumatic, hearing grossly normal bilaterally and external ears normal HEAD & SCALP: normocephalic and atraumatic FACE & SINUS: normal facial exam and no edema EXTERNAL EAR: Yes external ears normal Eye COMMON NORMALS: Equal, round and reactive pupils present, EOMs intact bilaterally, conjunctivae normal and no scleral icterus GENERAL EYE: appearance normal, both eyes and all related structures ALIGNMENT: Yes alignment normal EYELID: eyelids normal CONJUNCTIVA: Yes conjunctivae normal SCLERA: sclerae normal PUPIL: Yes Equal, round and reactive pupils present Neck/C-Spine COMMON NORMALS: supple and Thyroid normal GENERAL: Yes normal visual inspection, Yes trachea midline and No Mass present (neck) THYROID: Thyroid normal CAROTIDS: Yes normal carotid upstroke CERVICAL SPINE: Yes cervical ROM normal Chest COMMONS NORMALS: normal inspection of the chest and normal palpation of entire chest wall CHEST: Yes Symmetrical chest wall rise, No mass, No tenderness, + Surgical scars present (Chest) of sternotomy and No rash, left upper chest permanent pacemaker in place Resp COMMON NORMALS: clear to auscultation bilaterally EFFORT & INSPECTION: Yes able to speak in complete sentences, No respiratory distress and No labored AUSCULTATION: clear to auscultation bilaterally, decreased breath sounds at bases, no wheezes and vesicular breath sounds Cardio COMMON NORMALS: S1 and S2 irregular of variable intensity JUGULAR VENOUS DISTENTION: JVD PALPATION: normal PMI RHYTHM: abnormal rhythm irregularly irregular HEART SOUNDS: S1 normal heart sound present, S2 normal heart sound present, no gallops and no murmurs BRUITS: no abdominal aortic bruits, no carotid bruits and no femoral bruits PERIPHERAL PULSES: Peripheral pulses 2+ throughout, radial pulses present, posterior tibial pulses present and dorsalis pedis present GI COMMON NORMALS: Soft to palpation AUSCULTATION: Yes normoactive bowel sounds PALPATION: Yes Soft to palpation, No Tenderness to palpation present (GI), No Guarding due to palpation present (GI), No Rigid due to palpation, Extremity GENERAL: No calf tenderness, No clubbing, Yes edema (4+ edema extending above knees), weeping legs. Left shoulder pain Neuro COMMON NORMALS: patient oriented x3 SENSORIUM/ORIENTATION: Yes drowsy but arousable Psych APPEARANCE: Yes well kempt MOOD & AFFECT: Yes depressed mood Urinary Catheter Management^: Slater: Cath Placed During This Visit: no Reason for Continuing Indwelling Catheter: Accurate Measurement of Urinary Output in Critically Ill Patients Data : 12/15/20 03:49 12/15/20 03:49 A&P Assessment and plan (1) Right heart failure: Patient has chronic RV failure with elevated JVD and peripheral edema. -She has markedly dilated RV with severely decreased RV function and severe pHTN. Septal flattening in systole and diastole consistent with RV volume and pressure overload. [place] forming RV and RV: LV >1. -Her LV filling is volume dependant and both increase or decrease in volume can impair LV filling and CO.(Ventricular interdependance) -continue Dobutamine at 5 mcg; she may need levophed along with that. -currently on lasix 20 mg/hr. metolazone 5 mg along with Lasix drip. Patient and family still in the process of deciding on hospice versus dialysis for fluid management. Patient has been made hospice. I will sign off. Status: Acute Qualifiers: Heart failure chronicity: acute on chronic Qualified Code(s): I50.813 - Acute on chronic right heart failure (2) Acute kidney injury superimposed on chronic kidney disease: Creatinine from 1.6 today and BUN 39. -Nephrology on board. Status: Acute (3) Atrial fibrillation: Permanent A. fib on metoprolol, Xarelto and amiodarone. -A. fib ablation offered to patient in past and was declined. Status: Acute (4) Pulmonary hypertension: Severe pHTN WHO group 2 -unfortunately PH directed therapy has not been very beneficial in this group. Status: Acute (5) CKD (chronic kidney disease) stage 4, GFR 15-29 ml/min: BUN has decreased to 40 and creatinine has improved to 1.6., CO2 32. Status: Chronic (6) H/O tricuspid valve annuloplasty: Status: Acute (7) Status post mitral valve annuloplasty: Status: Acute (8) Diabetes: Status: Chronic Additional A&P Information PPM in situ Hyponatremia: portends poor prognosis Hypokalemia: Replaced Hypophosphatemia: Replaced Elevated alkaline phosphatase Elevated TSH Severe Depression Anemia of ID and CKD Thrombocytopenia Generalized weakness and Deconditioning Depression Thank you for allowing me to participate in patient's care. Please feel free to call with questions or concerns. 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
[2020-12-15] MEDS: atorvastatin 40 mg Tablet 20 MG PO (20:06)
[2020-12-16] VITALS (25 sets, daily range): BP systolic 82–115; BP diastolic 59–81; PULSE 78–134; RESP 16–39; TEMP 37–37.1; O2SAT 83–98; BMI 38.5
[2020-12-16] MEDS: FUROsemide 100 MG in sodium chloride 0.9% 40 ML 10 MG IV ×3 (00:36→12:30)
[2020-12-16] MEDS: LORazepam 1 mg Tablet PO (00:51)
[2020-12-16 04:37] LABS: Basophils % 0.7 %; Eosinophils % 0.2 %; Hematocrit 37.2 % (37.0-47.0); Hemoglobin 11.4 g/dL (11.5-15.3); Lymphocytes # 0.6 10^3/uL (0.8-4.8); Mean Corpuscular HGB Conc 30.6 g/dL (30.0-36.0); Mean Corpuscular Hemoglobin 26.1 pg (28.0-34.0); Mean Corpuscular Volume 85.1 fL (81-99); Mean Platelet Volume 11.5 fL (7.4-10.4); Monocytes # 0.5 10^3/uL (0.2-0.9); Monocytes % 10.4 %; Neutrophils # 3.27 10^3/uL (1.8-7.7); Neutrophils % 73.6 %; Nucleated Red Blood Cells % 0 %; Platelet Count 97 10^3/cmm (130-400); Red Blood Count 4.37 10^6/uL (4.1-5.3); Red Cell Distribution Width 20.9 % (12.1-15.1); White Blood Count 4.4 10^3/uL (4.0-10.0)
[2020-12-16 05:05] LABS: Alanine Aminotransferase < 5 U/L (0-33); Albumin Level 2.5 g/dL (3.5-5.2); Alkaline Phosphatase 128 IU/L (35-105); Blood Urea Nitrogen 38 mg/dL (8-23); Calcium 8.5 mg/dL (8.5-10.5); Carbon Dioxide 30 mmol/L (22-29); Chloride 90 mmol/L (98-107); Globulin 3.4 g/dL (1.3-4.6); Glomerular Filtration Rate 37.7 mL/min (90-130); Glucose 122 mg/dL (65-115); Magnesium 1.9 mg/dL (1.7-2.3); Osmolality Calculated 280 mOsm/kg (285-295); Sodium 130 mmol/L (136-145); Total Bilirubin 0.8 mg/dL (0.15-1.2); Total Protein 5.9 g/dL (6.6-8.7)
[2020-12-16 05:10] LABS: Anion Gap 13.6 (5-19); Aspartate Amino Transferase 19 U/L (0-32); Potassium 3.6 mmol/L (3.5-5.1)
[2020-12-16] MEDS: levothyroxine 25 mcg Tablet PO (05:15)
[2020-12-16 07:35] LABS: Glucose Point of Care 123 mg/dL (70-110)
[2020-12-16] MEDS: amiodarone 200 mg Tablet PO (07:50)
[2020-12-16] MEDS: escitalopram 10 mg Tablet 30 MG PO (07:50)
[2020-12-16] MEDS: metoprolol tartrate 25 mg Tablet PO (07:50)
[2020-12-16] MEDS: pantoprazole DR 40 mg Tablet PO (07:51)
[2020-12-16] MEDS: rivaroxaban 10 mg Tablet 15 MG PO (07:51)
[2020-12-16] MEDS: phosphorus 250 mg Tablet PO ×2 (08:35→17:53)
[2020-12-16] MEDS: metOLazone 5 MG Tablet PO (08:35)
[2020-12-16] MEDS: potassium chloride ER 20 mEq Tablet 40 MEQ PO ×2 (08:35→17:54)
[2020-12-16] MEDS: methylphenidate 10 mg Tablet 5 MG PO ×2 (08:35→17:53)
--- NOTE | 2020-12-16 09:07 | PC.NURSE ---
transfer to icu at this time
--- NOTE | 2020-12-16 11:16 | P.PN_ITS ---
Subjective Medications: Medication Review Details: Current Medications Acetaminophen (Acetaminophen 325 Mg Tablet) 650 mg PO Q6H PRN PRN Reason: Mild/Mod Pain Or Temp >/= 101 Last Admin: 12/14/20 05:57 Dose: 650 mg Documented by: Amiodarone HCl (Amiodarone 200 Mg Tablet) 200 mg PO DAILY@0800 [facility] Last Admin: 12/13/20 09:06 Dose: 200 mg Documented by: Artificial Tears (Artificial Tears Op Soln 15 Ml Btl) 1 drop EYEAFF DAILY PRN PRN Reason: DRY EYE(S) Atorvastatin Calcium (Atorvastatin 40 Mg Tablet) 20 mg PO DAILY@1999 [facility] Last Admin: 12/13/20 20:28 Dose: 20 mg Documented by: Bisacodyl (Bisacodyl 10 Mg Supp) 10 mg CO DAILY PRN PRN Reason: Constipation Dextrose (Dextrose 50% Syringe 50 Ml) 25 ml IVP ONCE PRN; Protocol PRN Reason: hypoglycemia protocol Dextrose (Dextrose 50% Syringe 50 Ml) 50 ml IVP PRN PRN; Protocol PRN Reason: hypoglycemia protocol Escitalopram Oxalate (Escitalopram 10 Mg Tablet) 30 mg PO DAILY@0800 [facility] Last Admin: 12/13/20 09:07 Dose: 30 mg Documented by: Glucagon (Glucagon 1 Mg/Ml Inj 1 Ml) 1 mg IM ONCE PRN; Protocol PRN Reason: Adult Acute Hypoglycemia Prot. Haloperidol (Haloperidol 5 Mg Tablet) 5 mg PO BID PRN PRN Reason: AGITATION Last Admin: 12/13/20 22:40 Dose: 5 mg Documented by: Hydroxyzine Pamoate (Hydroxyzine 25 Mg Capsule) 25 mg PO TID PRN PRN Reason: Itching Last Admin: 12/12/20 10:55 Dose: 25 mg Documented by: Dextrose (D5w) 500 mls @ 100 mls/hr IV ONCE PRN; Protocol PRN Reason: Adult Acute Hypoglycemia Prot Dobutamine HCl/Dextrose (Dobutamine Drip) 500 mg in 250 mls @ 8.308 mls/hr IV .Q24H [facility] Last Admin: 12/13/20 21:09 Dose: 5 mcg/kg/min, 8.3 mls/hr Documented by: Furosemide 100 mg/ Sodium (Chloride) 50 mls @ 0 mls/hr IV .Q0M [facility]; Protocol Last Admin: 12/14/20 06:18 Dose: 20 mg/hr, 10 mls/hr Documented by: Norepinephrine Bitartrate 4 mg (/ Dextrose) 254 mls @ 0 mls/hr IV .Q0M [facility]; Protocol Insulin Aspart (Insulin Aspart 100 Unit/1 Ml) 0 unit SUBCUT TIDWM [facility]; Protocol Last Admin: 12/13/20 17:00 Dose: 2 unit Documented by: Insulin Detemir (Insulin Detemir 100 Units/1 Ml) 10 unit SUBCUT DAILY@0600 [facility] Last Admin: 12/14/20 05:33 Dose: 10 unit Documented by: Levothyroxine Sodium (Levothyroxine 25 Mcg Tablet) 25 mcg PO QAM [facility] Last Admin: 12/14/20 05:33 Dose: 25 mcg Documented by: Lorazepam (Lorazepam 1 Mg Tablet) 1 mg PO BID PRN PRN Reason: ANXIETY Last Admin: 12/14/20 00:06 Dose: 1 mg Documented by: Magnesium Hydroxide (Magnesium Hydroxide 30 Ml Udc) 30 ml PO DAILY PRN PRN Reason: Constipation Last Admin: 12/08/20 05:50 Dose: 30 ml Documented by: Metolazone (Metolazone 5 Mg Tablet) 5 mg PO DAILY [facility] Last Admin: 12/13/20 09:07 Dose: 5 mg Documented by: Metoprolol Tartrate (Metoprolol Tartrate 25 Mg Tablet) 25 mg PO BID@0800,1999 [facility] Last Admin: 12/13/20 20:28 Dose: 25 mg Documented by: Naloxone HCl (Naloxone 0.4 Mg/Ml Sdv) 0.1 mg IVP Q2M PRN PRN Reason: OPIATERV Non-Formulary Medication (Honey [Medihoney (Honey)]) 1 applic TOPICAL DAILY [facility] Last Admin: 12/13/20 09:15 Dose: Not Given Documented by: Nystatin (Nystatin Cream 30 Gm) 1 applic TOPICAL TID PRN PRN Reason: Rash Ondansetron HCl (Ondansetron 2 Mg/Ml Sdv 2 Ml) 4 mg IVP Q6H PRN PRN Reason: NAUSEA AND VOMITING Last Admin: 12/10/20 00:56 Dose: 4 mg Documented by: Pantoprazole Sodium (Pantoprazole Dr 40 Mg Tablet) 40 mg PO DAILY@0800 [facility] Last Admin: 12/13/20 09:07 Dose: 40 mg Documented by: Polyethylene Glycol (Polyethylene Glycol 3350 Pkt 17 Gm) 17 gm PO DAILY PRN PRN Reason: Constipation Potassium Chloride (Potassium Chloride Er 20 Meq Tablet) 40 meq PO BID [facility] Last Admin: 12/13/20 17:00 Dose: 40 meq Documented by: Rivaroxaban (Rivaroxaban 10 Mg Tablet) 15 mg PO DAILY@0800 [facility] Last Admin: 12/13/20 09:07 Dose: 15 mg Documented by: Vitals/I&O/Wt Last Vital Signs Temp 98.6 F 12/16/20 08:00 Pulse 118 H 12/16/20 08:00 Resp 21 H 12/16/20 08:00 BP 99/70 12/16/20 08:00 Pulse Ox 95 12/16/20 08:00 12/15/20 12/16/20 12/16/20 22:59 06:59 14:59 Intake Total 425.072 / 715.072 289.333 / 1004.405 100 / 100 Output Total 550 / 1400 700 / 2100 Balance -124.928 / -684.928 -410.667 / -1095.595 100 / 100 Weight last 48 hrs Weight 95.6 kg Weight 95.6 kg Physical Exam Const: COMMON NORMALS: no acute distress and patient oriented x3 HENMT: COMMON NORMALS: normocephalic HEAD & SCALP: normocephalic Neck/C-Spine: COMMON NORMALS: no JVD Resp: COMMON NORMALS: normal respiratory effort, No retractions, No use of accessory muscles and clear to auscultation bilaterally AUSCULTATION: clear to auscultation bilaterally Cardio: COMMON NORMALS: no JVD, regular rate, regular rhythm, S1 normal heart sound present and S2 normal heart sound present RATE: regular rate RHYTHM: regular rhythm HEART SOUNDS: S1 normal heart sound present and S2 normal heart sound present GI: COMMON NORMALS: Normal to inspection, nondistended, normoactive bowel sounds present, Soft to palpation, non-tender, No hepatosplenomegaly present, no masses and no bruits PALPATION: Yes Soft to palpation and Yes No hepatosp lenomegaly present Extremity: COMMON NORMALS: capillary refill normal, no clubbing, cyanosis or edema, no calf tenderness and no pedal edema Neuro: COMMON NORMALS: patient oriented x3 Psych: COMMON NORMALS: mental status grossly normal Urinary Catheter Management^: Slater: Cath Placed During This Visit: no Reason for Continuing Indwelling Catheter: Accurate Measurement of Urinary Output in Critically Ill Patients Data : 12/16/20 03:58 12/16/20 03:58 A&P Assessment and plan (1) Anasarca: -Likely secondary to diastolic CHF, right-sided heart failure, pulmonary hypertension, cardiorenal syndrome -has gained roughly 10 pounds in the last few days, weight on last admission was 83 kg, weight on admission was 90.6 kg -Echocardiogram from October 30, 2020 shows: Small left ventricular cavity size. Normal left ventricular cavity size. Left ventricular ejection fraction is estimated at 55 %. Flattened septum in diastole consistent with right ventricle volume overload. 2-Severely increased right ventricular size. Severely decreased right ventricular systolic function. Moderate pulmonary hypertension, RVSP 65 mmHg. 3-Severely increased right atrial size. 4-Moderately increased left atrial size. 5-Severely thickened mitral valve. Severe mitral annular calcification. No mitral valve stenosis. Moderate to severe mitral valve regurgitation. 6-Severe aortic valve calcification. Moderate aortic valve stenosis, mean gradient, aortic valve is not well-visualized therefore cannot assess gradient on aortic valve area however appears to be moderately stenotic. 7-Structurally normal tricuspid valve without significant stenosis or regurgitation. Pulmonary artery systolic pressure is normal. 8-There is no pericardial effusion. 9-Right atrial pressure is around 20 mm of mercury. -Urine output has improved to over 1300cc continues to have diffuse anasarca Plan: -Fluid restrictions -Daily weights -Currently in ICU, receiving dobutamine drip, Lasix drip -Monitor creatinine and urine output closely -Cardiology on consult -Nephrology on consult -Receiving potassium supplementation today -Overall poor prognosis -Awaiting decision based on discussion with patient and her sister -On last admission patient had SANDY secondary to diuretics, hypoperfusion, has chronic hypotension, prerenal azotemia will start slow diuretic therapy and monitor her clinical response as she has CKD Plan for today, discussed with family, family meeting about hospice versus dialysis Status: Acute (2) Hyponatremia: Monitor sodium levels closely given diuresis Status: Acute (3) CKD (chronic kidney disease) stage 4, GFR 15-29 ml/min: Creatinine up to 1.7 today. Hypertension. Status: Chronic (4) Pulmonary hypertension: Status: Acute (5) Right heart failure: Status: Acute Qualifiers: Heart failure chronicity: acute on chronic Qualified Code(s): I50.813 - Acute on chronic right heart failure (6) Pleural effusion: Status: Acute (7) Atrial fibrillation: Continue amiodarone I have resumed Xarelto Status: Acute (8) Diabetes: Low-dose sliding scale Levemir 10 units in the morning Status: Chronic (9) Diastolic CHF: Status: Acute (10) Pacemaker: Status: Acute (11) H/O tricuspid valve annuloplasty: Status: Acute (12) Status post mitral valve annuloplasty: Status: Acute (13) Urinary tract infection: -Finish antibiotics -Follow urine cultures, blood cultures -CT scan of the abdomen pelvis does not show any obstructive uropathy or pyelonephritis -Has finished Bactrim therapy Status: Acute (14) Chronic hypotension: -Has chronic hypotension on midodrine, -Continue midodrine for now Status: Acute (15) Cellulitis of left wrist: -X-ray of the wrist shows cellulitis, improving, finished antibiotic therapy Status: Acute (16) Thrombocytopenia: -Likely secondary to fatty liver disease, and liver cirrhosis, CT scan of the abdomen shows liver irregularity suggesting liver cirrhosis, -For now Xarelto continued, no signs of bleeding -Monitor for bleeding -SCDs for DVT prophylaxis Status: Acute (17) Suicidal ideation: -Has suicidal ideation, no active ideation, no plan -We will have Dr. Gilman see patient -Also has poor appetite, decreased willingness to participate in activities, does not want to do physical therapy, does not want to move -Unfortunately seems like Lizzie has just given up, she is not willing to participate in physical therapy, she is not willing to move, she denies been willing to change the channel on television, she just wants to be left alone, given her severe anasarca, and immobility, fluid will tend to reaccumulate in her legs and her lungs, the severe recurring phenomenon, recurring admission, high risk of morbidity and mortality, high risk of DVTs and PEs, UTIs, pneumonias, sepsis, septic shock -Patient's brother states that ultimately it is her decision to make about hospice, will have to reach out to psychiatry team to ensure that she can make decisions for herself given her suicidal ideation -Patient is not ready to make a decision hospice Status: Acute Additional A&P Information Has chronic hypotension, is on midodrine, likely related to right-sided heart failure Attestations Medical Necessity Statement*: Patient requires hospitalization for anasarca, right-sided heart failure, pulmonary pretension possibly going on hospice Coding Level of Care Code Acute Sewer And Drain Technician for Chg Fwd Diagnoses Anasarca R60.1 Hyponatremia E87.1 CKD (chronic kidney disease) stage 4, GFR 15-29 ml/min N18.4 Pulmonary hypertension I27.20 Right heart failure I50.813 Heart failure chronicity: acute on chronic Pleural effusion J90 Atrial fibrillation I48.91 Diabetes E11.9 Diastolic CHF I50.30 Pacemaker Z95.0 H/O tricuspid valve annuloplasty Z98.890 Status post mitral valve annuloplasty Z98.890 Urinary tract infection N39.0 Chronic hypotension I95.89 Cellulitis of left wrist L03.114 Thrombocytopenia D69.6 Suicidal ideation R45.851
[2020-12-16 11:25] LABS: Glucose Point of Care 118 mg/dL (70-110)
--- NOTE | 2020-12-16 11:56 | PC.SOCIAL ---
IMM Update Pg.2 of IMM updated and reviewed. Copy provided.
--- NOTE | 2020-12-16 13:51 | PM.PN ---
Subjective Subjective: Interval history: Ms. Pro continues to feel extremely unwell, extremely weak, she is very edematous today although she is breathing comfortably on nasal cannula oxygen. She has been on the Dobutrex infusion as well as Lasix, with a slightly better urine output. Vitals/I&O/Wt Last Vital Signs Temp 98.6 F 12/16/20 08:00 Pulse 78 12/16/20 12:00 Resp 22 H 12/16/20 12:00 BP 107/73 12/16/20 12:00 Pulse Ox 96 12/16/20 12:00 12/15/20 12/16/20 12/16/20 22:59 06:59 14:59 Intake Total 425.072 / 715.072 289.333 / 1004.405 350 / 350 Output Total 550 / 1400 700 / 2100 Balance -124.928 / -684.928 -410.667 / -1095.595 350 / 350 Weight last 48 hrs Weight 95.6 kg Weight 95.6 kg Physical Exam Narrative: EXAM NARRATIVE: Constitutional: Awake, comfortable HEENT: Wet mucosa, no jvp, non icteric Lungs: Bilaterally clear without discernible wheeze, rales in all lung zones CVS: S1 S2, no murmurs Abdo: Soft, BS ok Ext 4: global edema, peripheral perfusion with no cyanosis Neurological: Grossly non-focal Urinary Catheter Management^: Slater: Cath Placed During This Visit: no Reason for Continuing Indwelling Catheter: Accurate Measurement of Urinary Output in Critically Ill Patients Data : 12/16/20 03:58 12/16/20 03:58 A&P Additional A&P Information 1. Renal Failure She has renal failure with severe anasarca recalcitrant to maximal medical therapy. Continue dobutamine, Lasix infusion, metolazone for the time being but will stop this when she formally transitions to hospice I have again asked her about dialysis and she remains firm that she doesn't want it 2. Chemistry. Minor noncritical aberration inc hypoNa. 3. Anemia. Relatively mild, hemoglobin 11.4 g/dL. Monitor while providing active therapy Onofre Dove MD Nephrology [phone] Patient seen and examined via telemedicine, with the assistance of the bedside RN > 25 min spent in evaluation and mgmt of patient Attestations Medical Necessity Statement*: eval for SANDY/renal failure Coding Level of Care Code Acute Facilities Management Executive for Braeden Kuhn
--- NOTE | 2020-12-16 16:04 | PC.NURSE ---
brother sister and neice all in room and discussed with pt about option and care and hospice pt had acknoledge options has repeated several times she will not do dialysis . explained unable to continue continue iv medication on indefinate basis and she related i know that . after plans made discharge on hospice in am and iv medication turned off after doctor left pt made comment as she wanted him to shut the up about all this.
--- NOTE | 2020-12-16 16:17 | PC.NURSE ---
pt remains fairly upset and in discussion with family explained that will take iv off when pt calmer at this time
[2020-12-16 17:06] LABS: Glucose Point of Care 73 mg/dL (70-110)
--- NOTE | 2020-12-16 19:00 | PC.NURSE ---
Report received, care assumed. Monitor alarms, plan of care et previous orders reviewed. Please see physical assessment et vital sign flow sheets for details.
[2020-12-16] MEDS: haloperidol 5 mg Tablet PO (19:41)
[2020-12-16] MEDS: atorvastatin 40 mg Tablet 20 MG PO (19:41)
--- NOTE | 2020-12-16 19:55 | PC.NURSE ---
Holding patient's 2000 lopressor dose due to soft BP (SBP 90mmHg)
--- NOTE | 2020-12-16 20:00 | PC.NURSE ---
Patient refuses to turn, move or move. Educated on complication associated with immobility. Patient still refuses to move.
[2020-12-16 23:09] LABS: Glucose Point of Care 80 mg/dL (70-110)
[2020-12-17] VITALS (9 sets, daily range): BP systolic 73–106; BP diastolic 52–68; PULSE 49–134; RESP 17–25; TEMP 36.5–36.6; O2SAT 92–97; BMI 38.8
[2020-12-17] MEDS: hyDROXYzine 25 mg Capsule PO (00:04)
--- NOTE | 2020-12-17 01:00 | PC.NURSE ---
Patient remains agitated et unable to respond to verbal redirection. Contacted Dr. Smith. New orders noted et implemented. Will continue to monitor.
[2020-12-17] MEDS: quetiapine 25 mg Tablet PO (01:18)
[2020-12-17] MEDS: levothyroxine 25 mcg Tablet PO (06:05)
[2020-12-17] MEDS: escitalopram 10 mg Tablet 30 MG PO (08:15)
[2020-12-17] MEDS: phosphorus 250 mg Tablet PO (08:16)
[2020-12-17] MEDS: potassium chloride ER 20 mEq Tablet 40 MEQ PO (08:16)
[2020-12-17] MEDS: rivaroxaban 10 mg Tablet 15 MG PO (08:16)
[2020-12-17] MEDS: pantoprazole DR 40 mg Tablet PO (08:16)
[2020-12-17] MEDS: metOLazone 5 MG Tablet PO (08:16)
[2020-12-17] MEDS: amiodarone 200 mg Tablet PO (08:17)
[2020-12-17] MEDS: methylphenidate 10 mg Tablet 5 MG PO (08:17)
[2020-12-17] MEDS: metoprolol tartrate 25 mg Tablet PO (08:20)
--- NOTE | 2020-12-17 08:27 | PC.CHAP ---
Pastoral Care Encounter/Spiritual Assessment Type of Contact [] Declined hand tube bender visit [] Patient/Family/Request visit [] Outpatient visit [] Follow-up visit [] Physician referral [] Code/Alert [] Routine visit [] Staff referral [] Actively dying [] Patient sleeping [] Family support [] [] Out of room [] Palliative care [] [] Receiving care in room [] Pre-surgical visit [] Trauma [] Long length of stay [x] ICU visit [] Other: Relational/Emotional Strength [] Patient feels connected with others/family/visitors/staff [] Distress [] Loneliness/isolation [] Abandonment Spirituality of Patient [] Person of [place] [] Attends Mormon of their [place] [] Believes in Prayer [] Reads Bible or Tenriism materials [] There are Spiritual issues to be addressed Station Helper Interventions [x] Prayer [] Active listening [] Non-anxious presence [] Spiritual/emotional support [] Crisis/trauma care [] Spiritual counseling [] Bereavement support [] Provided bereavement packet [] Provided Bible/devotional materials [] Provided toy/stuffed animal, coloring book to patient or family member [] Provided Communion [] Anointing/Ash [] Salvation [x] Completed spiritual assessment [] Other: Impact on Illness or Injury [] Angry [] Fearful [] Anxious [] Often cries [] Exhaustion [] Unable to work [] Unable to attend jainism [] Unable to walk/stand [] Unable to read [] Unable to drive [] Unable to eat/drink [] Unable to sleep [] Unable to be with family [] Patient intubated [] Other: Summary Time spent with patient
--- NOTE | 2020-12-17 09:57 | P.DS_ITS ---
Discharge Providers Date of Admission: 11/29/20 17:04 Date of Discharge: December 17, 2020 Attending Provider at Admission: Praveen Perry MD Attending Provider at Discharge: Praveen Perry MD Primary Care Provider: Heather Núñez MD Diagnoses at Discharge Discharge Diagnosis (1) Anasarca: Status: Acute (2) Hyponatremia: Status: Acute (3) CKD (chronic kidney disease) stage 4, GFR 15-29 ml/min: Status: Chronic (4) Pulmonary hypertension: Status: Acute (5) Right heart failure: Status: Acute Qualifiers: Heart failure chronicity: acute on chronic Qualified Code(s): I50.813 - Acute on chronic right heart failure (6) Pleural effusion: Status: Acute (7) Atrial fibrillation: Status: Acute (8) Diabetes: Status: Chronic (9) Diastolic CHF: Status: Acute (10) Pacemaker: Status: Acute (11) H/O tricuspid valve annuloplasty: Status: Acute (12) Status post mitral valve annuloplasty: Status: Acute (13) Urinary tract infection: Status: Acute (14) Chronic hypotension: Status: Acute (15) Cellulitis of left wrist: Status: Acute (16) Thrombocytopenia: Status: Acute (17) Suicidal ideation: Status: Acute Reason for Visit Reason for Visit: EDEMA, ABN LABS Hospital Course Hospital Course Lizzie Pro is a 65 year old female diastolic CHF, bilateral lower extremity edema, insulin-dependent type 2 diabetes, hypertension, atrial fibrillation on Xarelto status post Maze procedure and ANGELO ligation history of mitral valve repair, tricuspid valve repair, chronic anemia, chronic kidney disease stage IV, CAD, hypertension, morbid obesity, chronic indwelling Slater, has a dual-chamber pacemaker, who is had multiple hospital admissions over the last year for bilateral lower extremity edema, CHF exacerbations, urinary tract infections who presents to [facility] due to complaints of diffuse anasarca, and dark-colored urine. (1) Anasarca: -Likely secondary to diastolic CHF, right-sided heart failure, pulmonary hypertension, cardiorenal syndrome -has gained roughly 10 pounds in the last few days, weight on last admission was 83 kg, weight on admission was 90.6 kg -Echocardiogram from October 30, 2020 shows: Small left ventricular cavity size. Normal left ventricular cavity size. Left ventricular ejection fraction is estimated at 55 %. Flattened septum in diastole consistent with right ventricle volume overload. 2-Severely increased right ventricular size. Severely decreased right ventricular systolic function. Moderate pulmonary hypertension, RVSP 65 mmHg. 3-Severely increased right atrial size. 4-Moderately increased left atrial size. 5-Severely thickened mitral valve. Severe mitral annular calcification. No mitral valve stenosis. Moderate to severe mitral valve regurgitation. 6-Severe aortic valve calcification. Moderate aortic valve stenosis, mean gradient, aortic valve is not well-visualized therefore cannot assess gradient on aortic valve area however appears to be moderately stenotic. 7-Structurally normal tricuspid valve without significant stenosis or regurgitation. Pulmonary artery systolic pressure is normal. 8-There is no pericardial effusion. 9-Right atrial pressure is around 20 mm of mercury. Patient was admitted for diffuse anasarca, received inpatient diuresis, however she had no significant clinical progress, continued to have diffuse pitting edema, cardiology was consulted, nephrology was consulted, she was moved to the ICU, started on a dobutamine drip, Lasix drip, kept in ICU for 5 days, she wasdiuresed over 7 L. However patient continued to have diffuse anasarca, with bilateral pitting edema, poor appetite, poor functional status, remain bedbound, did not want to be moved, and lack of motivation. Given patient's recurrent nature of the diffuse anasarca, with right-sided heart failure, pulmonary hypertension, cardiorenal syndrome, and multiple hospitalizations for this recurrent issue we had a discussion with patient about her goals of care. Options that were discussed with hospice versus proceeding to dialysis. After discussion with cardiology, nephrology, patient and patient's family, patient came to the decision of hospice. After discussion of the risks and benefits of hospice, she wishes to be, all questions answered, agreed to proceed to hospice. (2) Hyponatremia: Acute on chronic secondary to severe right-sided heart failure (3) CKD (chronic kidney disease) stage 4, GFR 15-29 ml/min: Improving with diuresis (4) Pulmonary hypertension: Status: Acute (5) Right heart failure: Status: Acute Qualifiers: Heart failure chronicity: acute on chronic Qualified Code(s): I50.813 - Acute on chronic right heart failure (6) Pleural effusion: Status: Acute (7) Atrial fibrillation: Continue amiodarone Continue Xarelto (8) Diabetes: Low-dose sliding scale Levemir 10 units in the morning Status: Chronic (9) Diastolic CHF: Status: Acute (10) Pacemaker: Status: Acute (11) H/O tricuspid valve annuloplasty: Status: Acute (12) Status post mitral valve annuloplasty: Status: Acute (13) Urinary tract infection: -Finish antibiotics -Follow urine cultures, blood cultures all negative -CT scan of the abdomen pelvis does not show any obstructive uropathy or pyelonephritis -Has finished Bactrim therapy Status: Acute (14) Chronic hypotension: -Has chronic hypotension on midodrine, -Continue midodrine for now Status: Acute (15) Cellulitis of left wrist: -X-ray of the wrist shows cellulitis, improving, finished antibiotic therapy Status: Acute (16) Thrombocytopenia: -Likely secondary to fatty liver disease, and liver cirrhosis, CT scan of the abdomen shows liver irregularity suggesting liver cirrhosis, -For now Xarelto continued, no signs of bleeding -Monitor for bleeding -SCDs for DVT prophylaxis Status: Acute (17) Suicidal ideation: -Has suicidal ideation, no active ideation, no plan -We will have Dr. Gilman see patient, patient is not actively suicidal, continue home medications -Also has poor appetite, decreased willingness to participate in activities, does not want to do physical therapy, does not want to move -Unfortunately seems like Lizzie has just given up, she is not willing to participate in physical therapy, she is not willing to move, she denies been willing to change the channel on television, she just wants to be left alone, given her severe anasarca, and immobility, fluid will tend to reaccumulate in her legs and her lungs, the severe recurring phenomenon, recurring admission, high risk of morbidity and mortality, high risk of DVTs and PEs, UTIs, pneumonias, sepsis, septic shock -Patient proceeded to hospice Physical Exam Narrative: EXAM NARRATIVE: Generalized anasarca Const: COMMON NORMALS: no acute distress and patient oriented x3 OTHER: Generalized anasarca HENMT: COMMON NORMALS: normocephalic HEAD & SCALP: normocephalic Neck/C-Spine: COMMON NORMALS: no JVD Resp: COMMON NORMALS: normal respiratory effort, No retractions, No use of accessory muscles and clear to auscultation bilaterally AUSCULTATION: clear to auscultation bilaterally Cardio: COMMON NORMALS: no JVD, regular rate, regular rhythm, S1 normal heart sound present and S2 normal heart sound present RATE: regular rate RHYTHM: regular rhythm HEART SOUNDS: S1 normal heart sound present and S2 normal heart sound present GI: COMMON NORMALS: Normal to inspection, nondistended, normoactive bowel sounds present, Soft to palpation, non-tender, No hepatosplenomegaly present, no masses and no bruits PALPATION: Yes Soft to palpation and Yes No hepatosplenomegaly present Extremity: COMMON NORMALS: capillary refill normal, no clubbing, cyanosis or edema, no calf tenderness and no pedal edema Neuro: COMMON NORMALS: patient oriented x3 Psych: COMMON NORMALS: mental status grossly normal Skin: NARRATIVE SKIN EXAM: Generalized anasarca OTHER: Diffuse anasarca, 1+ pitting edema bilaterally Urinary Catheter Management^: Slater: Cath Placed During This Visit: no Reason for Continuing Indwelling Catheter: Accurate Measurement of Urinary Output in Critically Ill Patients Discharge Data Data Completed and Pending: Completed Studies During Hospitalization Category Date Time Status CT kidney stone 7 4176 Urgent Cat Scan 11/29/20 17:04 Completed XR chest 1V meriln ble [id number] Routine Exams 12/07/20 07:00 Completed XR chest 1V merlin ble 16200 Routine Exams 12/11/20 07:00 Completed XR chest 1V merlin ble 16407 Routine Exams 12/12/20 07:00 Completed XR chest 1V merlin ble [id number] Routine Exams 12/14/20 07:00 Completed XR chest 1V merlin ble [id number] Stat Exams 11/29/20 09:55 Completed XR wrist LT 2V 73 100 Stat Exams 11/29/20 17:04 Completed Pending at discharge Category Date Time Status Sputum Culture an d Gram Stain Stat Lab 11/29/20 10:34 Uncollected Labs from last 24 hours 12/16/20 12/16/20 12/16/20 23:01 16:53 11:14 POC Glucose 80 73 118 H Vitals: Last Vital Signs Temp 98 F 12/17/20 08:00 Pulse 95 12/17/20 08:00 Resp 24 H 12/17/20 08:00 BP 83/59 12/17/20 08:00 Pulse Ox 95 12/17/20 08:00 Discharge Plan Discharge Patient Disposition: Hospice - Medical Facility Condition: Stable Prescriptions: New levothyroxine 25 mcg Tablet 25 mcg PO QAM 30 Days Qty: 30 RF: 0 Klor-Con M20 20 mEq Tablet,Er Particles/Crystals 20 meq PO BID 30 Days Qty: 60 RF: 0 Continued nystatin 100,000 unit/gram cream 1 applic TOPICAL TID PRN (Reason: Rash) RF: 0 hydroxyzine pamoate 25 mg capsule 25 mg PO TID PRN (Reason: Itching) RF: 0 Benadryl 2 cap PO PRN RF: 0 insulin aspart U-100 [Novolog U-100 Insulin aspart] 100 unit/mL Solution See Rx Instructions .ROUTE .COMPLEX Qty: 10 RF: 0 MediHoney (honey) 80 % Gel 1 applic TOPICAL DAILY RF: 0 Pacerone 200 mg tablet 200 mg PO DAILY@0800 RF: 0 simvastatin 10 mg tablet 10 mg PO DAILY@1999 RF: 0 sodium chloride 1 gram tablet 1 g PO TID@08,, RF: 0 midodrine 5 mg tablet 2.5 mg PO BID@0800,1999 RF: 0 sodium bicarbonate 650 mg tablet 650 mg PO BID@0800,1999 RF: 0 pantoprazole 40 mg tablet,delayed release (DR/EC) 40 mg PO DAILY@0800 RF: 0 escitalopram oxalate 10 mg tablet 30 mg PO DAILY@0800 RF: 0 metoprolol tartrate 25 mg tablet 25 mg PO BID@0800,1999 RF: 0 Levemir FlexTouch U-100 Insuln 100 unit/mL (3 mL) insulin pen 10 unit SUBCUT DAILY@0600 RF: 0 Xarelto 10 mg tablet 15 mg PO DAILY@0800 RF: 0 Miralax 17 gram Powder In Packet 17 g PO DAILY PRN (Reason: Constipation) RF: 0 Milk of Magnesia 400 mg/5 mL Suspension 400 mg PO DAILY PRN (Reason: Constipation) RF: 0 bisacodyl 10 mg Suppository 10 mg DE DAILY PRN (Reason: Constipation) RF: 0 Enema Disposable 19-7 gram/118 mL Enema 118 ml DE DAILY PRN (Reason: Constipation) RF: 0 Refresh Tears See Rx Instructions .ROUTE .COMPLEX RF: 0 Systane (PF) See Rx Instructions .ROUTE .COMPLEX RF: 0 Changed furosemide 40 mg Tablet 40 mg PO BID 30 Days Qty: 30 RF: 0 Discharge Orders: Discharge Order (Routine); Ordered 12/17/20 Ordered By: Praveen Perry Referrals: Heather Núñez MD [Primary Care Provider] - Discharge Diet: Regular Discharge Activity: Resume usual activity Discharge Attestations Time Spent in Discharge Care*: greater than 30 min Quality Metrics Clinical Quality Measures During this hospital stay, did patient experience: None Coding Level of Care Code Acute [employer] for [facility]g Fwd Diagnoses Anasarca R60.1 Hyponatremia E87.1 CKD (chronic kidney disease) stage 4, GFR 15-29 ml/min N18.4 Pulmonary hypertension I27.20 Right heart failure I50.813 Heart failure chronicity: acute on chronic Pleural effusion J90 Atrial fibrillation I48.91 Diabetes E11.9 Diastolic CHF I50.30 Pacemaker Z95.0 H/O tricuspid valve annuloplasty Z98.890 Status post mitral valve annuloplasty Z98.890 Urinary tract infection N39.0 Chronic hypotension I95.89 Cellulitis of left wrist L03.114 Thrombocytopenia D69.6 Suicidal ideation R45.851
--- NOTE | 2020-12-17 10:29 | PC.NURSE ---
report called to [facility] [place] .anisa bailey ....[phone] for discharge to hospice
--- NOTE | 2020-12-17 10:51 | PC.NURSE ---
iv removed whole inact both sites at this time ...
[2020-12-17 16:55] LABS: Glucose Point of Care 79 mg/dL (70-110)
== END 2020-12-17 12:43 | disposition hospice, inpatient (51) | DRG 291 ==
LOC: ER 10:22 → MEDSURG 17:14 → CSU 12-08 20:49 → ICU 12-10 09:38
PROVIDERS: Internal Medicine Nephrology; Admitting Provider Family Medicine; Emergency Provider Family Medicine; PCP Family Medicine; Visit Provider Family Medicine
DX: I13.0 Hypertensive heart and chronic kidney disease with heart failure and stage 1 through stage 4 chronic kidney disease, or unspecified chronic kidney disease (principal); I50.33 Acute on chronic diastolic (congestive) heart failure; E87.1 Hypo-osmolality and hyponatremia; N18.4 Chronic kidney disease, stage 4 (severe); N39.0 Urinary tract infection, site not specified; L03.114 Cellulitis of left upper limb; R45.851 Suicidal ideations; I50.813 Acute on chronic right heart failure; I27.20 Pulmonary hypertension, unspecified; I48.91 Unspecified atrial fibrillation; E11.22 Type 2 diabetes mellitus with diabetic chronic kidney disease; Z79.4 Long term (current) use of insulin; Z95.0 Presence of cardiac pacemaker; I95.89 Other hypotension; D69.6 Thrombocytopenia, unspecified; Z95.2 Presence of prosthetic heart valve; Z79.01 Long term (current) use of anticoagulants; D63.1 Anemia in chronic kidney disease; I25.10 Atherosclerotic heart disease of native coronary artery without angina pectoris; Z96.0 Presence of urogenital implants; E66.01 Morbid (severe) obesity due to excess calories; Z68.38 Body mass index [BMI] 38.0-38.9, adult; E87.5 Hyperkalemia; Z95.1 Presence of aortocoronary bypass graft
CPT/HCPCS: 12345; 36415; 36416; 71045; 73100; 74176; 80053; 80202; 81001; 82550; 82962; 83605; 83690; 83735; 83880; 84100; 84145; 84443; 84484; 85025; 85610; 85651; 86140; 87040; 87077; 87086; 87186; 87493; 87641; 93005; 94664; 96372; 99283; J0743; J1250; J1815; J1940; J1956; J2060; J2270; J2405; J3370; J3480; J3490; J7030; P9047; Q3014